=== PATIENT | female | born 1970 | race Caucasian/White ===

== ENCOUNTER 2019-05-28 14:36 | Outpatient (CLI) | payer MEDICAID, SELFPAY ==
--- NOTE | 2019-05-28 14:55 | MM_ITS ---
WS: [id number] BILATERAL DIGITAL SCREENING MAMMOGRAPHY WITH CAD CLINICAL INFORMATION: SCREENING HISTORY: Screening mammogram. No current complaints. COMPARISON: TECHNIQUE: Bilateral CC and MLO views. FINDINGS: The breasts are composed of heterogeneous fibroglandular density tissue, which can limit the detectio n of small underlying mass lesions. Stable 6 mm right intramammary lymph node. No suspicious mass, as ymmetry, calcifications, or architectural distortion. No evidence of malignancy. MM/[place] [id number] IMPRESSION: BI-RADS: 2-Benign FOLLOW UP: 1 Year Follow-up Recommend return to annual screening mammography.
== END 2019-05-28 14:37 | disposition home or self-care (01) ==
PROVIDERS: Family Provider Internal Medicine; PCP Internal Medicine; Visit Provider Internal Medicine
DX: Z12.31 Encounter for screening mammogram for malignant neoplasm of breast (principal)
CPT/HCPCS: 77067

== ENCOUNTER 2019-09-16 10:27 | Outpatient (CLI) | payer MEDICAID, SELFPAY ==
[2019-09-16 10:44] LABS: Basophils % 0.1 %; Eosinophils # 0.1 10^3/uL (0.0-0.8); Eosinophils % 1.2 %; Hematocrit 38.1 % (37.0-47.0); Hemoglobin 12.3 g/dL (11.5-15.3); Lymphocytes # 0.6 10^3/uL (0.8-4.8); Lymphocytes % 5.7 %; Mean Corpuscular HGB Conc 32.3 g/dL (30.0-36.0); Mean Corpuscular Hemoglobin 31.5 pg (28.0-34.0); Mean Corpuscular Volume 97.4 fL (81-99); Mean Platelet Volume 10.1 fL (7.4-10.4); Monocytes % 9.1 %; Neutrophils # 8.9 10^3/uL (1.8-7.7); Neutrophils % 83.6 %; Nucleated Red Blood Cells % 0 %; Platelet Count 300 10^3/cmm (130-400); Red Blood Count 3.91 10^6/uL (4.1-5.3); Red Cell Distribution Width 12.8 % (12.1-15.1); White Blood Count 10.7 10^3/uL (4.0-10.0)
[2019-09-16 14:43] LABS: Alanine Aminotransferase 12 U/L (0-33); Alkaline Phosphatase 99 IU/L (35-105); Anion Gap 16.8 (5-19); Aspartate Amino Transferase 18 U/L (0-32); Blood Urea Nitrogen 14 mg/dL (6-20); Carbon Dioxide 21 mmol/L (22-29); Chloride 110 mmol/L (98-107); Globulin 3.1 g/dL (1.3-4.6); Glomerular Filtration Rate 106.3 mL/min (90-130); Glucose 122 mg/dL (65-115); Osmolality Calculated 296 mOsm/kg (285-295); Potassium 3.8 mmol/L (3.5-5.1); Sodium 144 mmol/L (136-145); Total Bilirubin 0.2 mg/dL (0.15-1.2); Total Protein 7.1 g/dL (6.6-8.7)
== END 2019-09-16 10:28 | disposition home or self-care (01) ==
PROVIDERS: PCP Internal Medicine; Visit Provider Internal Medicine
DX: N39.0 Urinary tract infection, site not specified (principal)
CPT/HCPCS: 80053; 85025

== ENCOUNTER 2019-10-23 | Outpatient (CLI) | payer MEDICAID, SELFPAY | END 2019-10-23 23:00 | disposition home or self-care (01) | LOC: RAD 01-07 10:32 | PROVIDERS: PCP Internal Medicine; Visit Provider Urology | DX: G35 Multiple sclerosis (principal); G40.209 Localization-related (focal) (partial) symptomatic epilepsy and epileptic syndromes with complex partial seizures, not intractable, without status epilepticus; F17.210 Nicotine dependence, cigarettes, uncomplicated | CPT/HCPCS: 99213 ==

== ENCOUNTER 2019-12-19 12:56 | Outpatient (CLI) | payer MEDICAID, SELFPAY ==
[2019-12-19 13:08] LABS: Basophils % 0.2 %; Eosinophils # 0.1 10^3/uL (0.0-0.8); Eosinophils % 0.4 %; Hematocrit 44.1 % (37.0-47.0); Hemoglobin 13.9 g/dL (11.5-15.3); Lymphocytes # 1.4 10^3/uL (0.8-4.8); Lymphocytes % 9.4 %; Mean Corpuscular HGB Conc 31.5 g/dL (30.0-36.0); Mean Corpuscular Hemoglobin 30.8 pg (28.0-34.0); Mean Corpuscular Volume 97.8 fL (81-99); Mean Platelet Volume 9.8 fL (7.4-10.4); Monocytes % 6.5 %; Neutrophils # 12.33 10^3/uL (1.8-7.7); Nucleated Red Blood Cells % 0 %; Platelet Count 369 10^3/cmm (130-400); Red Blood Count 4.51 10^6/uL (4.1-5.3); Red Cell Distribution Width 12.4 % (12.1-15.1); White Blood Count 14.9 10^3/uL (4.0-10.0)
[2019-12-19 14:04] LABS: Alanine Aminotransferase 11 U/L (0-33); Albumin Level 4.3 g/dL (3.5-5.2); Alkaline Phosphatase 113 IU/L (35-105); Aspartate Amino Transferase 19 U/L (0-32); Blood Urea Nitrogen 15 mg/dL (6-20); Calcium 9.8 mg/dL (8.5-10.5); Carbon Dioxide 21 mmol/L (22-29); Chloride 108 mmol/L (98-107); Globulin 3.2 g/dL (1.3-4.6); Glomerular Filtration Rate 131.1 mL/min (90-130); Glucose 113 mg/dL (65-115); Osmolality Calculated 287 mOsm/kg (285-295); Sodium 140 mmol/L (136-145); Total Bilirubin 0.2 mg/dL (0.15-1.2); Total Protein 7.5 g/dL (6.6-8.7)
== END 2019-12-19 12:57 | disposition home or self-care (01) ==
LOC: LAB 12:58
PROVIDERS: PCP Internal Medicine; Visit Provider Internal Medicine
DX: N18.9 Chronic kidney disease, unspecified (principal); R31.9 Hematuria, unspecified
CPT/HCPCS: 80053; 85025

== ENCOUNTER 2020-02-12 09:23 | Outpatient (CLI) | payer MEDICAID, SELFPAY ==
--- NOTE | 2020-02-12 09:30 | CT_ITS ---
WS: [id number] CT ABDOMEN PELVIS TECHNIQUE: Noncontrast CT of the abdomen and pelvis with coronal and sagittal reformatted images. CLINICAL INFORMATION: STAGHORN CALCULUS COMPARISON: CT 8 21,018 DLP: 1407.[address] scans at [facility] use at least one of these dose optimization techniques: automat ed exposure control; mA and/or kV adjustment per patient size (includes targeted exams where dose is matched to clinical indication); or iterative reconstruction. FINDINGS: Noncontrast liver is normal. Normal GE junction. Noncontrast spleen is normal. Small splenules. Meri l noncontrast pancreas. Normal caliber abdominal aorta. Slight atelectasis in the lung bases. Adrenal glands are normal. Stable right staghorn calculus with small calculi extending to the right renal pe lvis unchanged from previous. Mild chronic thickening and dilatation of the right renal pelvis appear s unchanged. No progressed hydronephrosis. Stable left renal calculi the largest measuring 11 mm left lower pole. Tiny calyceal tip calculi. Left ureter is decompressed. Prior ileal conduit. No evidence of obstruction. Postoperative changes surgical anastomosis right lower quadrant. Marked distention of the rectosigmoid with constipation was present on the prior examination but prog ressed today. No abdominal or pelvic lymphadenopathy. Stable sclerotic lesion right proximal femur li medina enchondroma. CT/CT kidney stone [id number] IMPRESSION: 1. Stable appearing right staghorn calculi extending into the right renal pelv is with chronic thickening and right pelvocaliectasis. This is unchanged in remy earance from previous. No evidence evidence of acute obstruction. 2. Left calyceal tip calculi. Largest measures 11 mm. 3. Prior postoperative ileoconduit. No evidence of obstruction. 4. Marked distention of the rectosigmoid with constipation was present previou sly but is progressed today. No other significant changes from previous.
== END 2020-02-12 09:24 | disposition home or self-care (01) ==
LOC: RAD 09:28
PROVIDERS: PCP Internal Medicine; Visit Provider Urology
DX: N20.0 Calculus of kidney (principal)
CPT/HCPCS: 74176

== ENCOUNTER 2020-02-27 13:18 | Outpatient (CLI) | payer MEDICAID, SELFPAY ==
[2020-02-27 14:03] LABS: Alanine Aminotransferase 19 U/L (0-33); Albumin Level 4.5 g/dL (3.5-5.2); Alkaline Phosphatase 133 IU/L (35-105); Anion Gap 19.4 (5-19); Aspartate Amino Transferase 22 U/L (0-32); Blood Urea Nitrogen 12 mg/dL (6-20); Calcium 9.7 mg/dL (8.5-10.5); Carbon Dioxide 21 mmol/L (22-29); Chloride 105 mmol/L (98-107); Globulin 3.4 g/dL (1.3-4.6); Glomerular Filtration Rate 169.7 mL/min (90-130); Glucose 86 mg/dL (65-115); Osmolality Calculated 293 mOsm/kg (285-295); Potassium 3.4 mmol/L (3.5-5.1); Sodium 142 mmol/L (136-145); Total Bilirubin 0.2 mg/dL (0.15-1.2); Total Protein 7.9 g/dL (6.6-8.7)
[2020-03-05 11:17] LABS: Levetiracetam Keppra 50.4 mcg/mL
== END 2020-02-27 13:19 | disposition home or self-care (01) ==
LOC: LAB 13:19
PROVIDERS: PCP Internal Medicine; Visit Provider Internal Medicine
DX: D64.9 Anemia, unspecified (principal)
CPT/HCPCS: 80053; 80177; 85025

== ENCOUNTER 2020-07-08 09:35 | Outpatient (CLI) | payer MEDICAID, SELFPAY ==
--- NOTE | 2020-07-08 09:47 | XRR_ITS ---
PROCEDURE INFORMATION: Exam: XR Abdomen Exam date and time: 07/08/2020 9:48 AM Age: 50 years old Clinical indication: Condition or disease; Kidney or ureter condition; Calculus (stone) in kidney; Prior surgery; Surgery type: Colostomy, hystorectomy TECHNIQUE: Imaging protocol: XR of the abdomen. Views: Frontal supine view of the abdomen. 1 View. COMPARISON: CT kidney stone [id number] 02/12/2020 9:42 AM FINDINGS: Gastrointestinal tract: Copious stool in a pattern of constipation and fecal impaction. Intraperitoneal space: Incomplete visualization of the superior most abdomen. Organs: Bilateral renal calculi, which are partially obscured by bowel gas and stool. Vasculature: Vascular calcification. Bones/joints: Osteopenia and degenerative change. XR/XR KUB [id number] IMPRESSION: 1. Copious stool in a pattern of constipation and fecal impaction. 2. Bilateral renal calculi, which are partially obscured by bowel gas and stool.
== END 2020-07-08 09:36 | disposition home or self-care (01) ==
PROVIDERS: PCP Internal Medicine; Visit Provider Urology
DX: N20.0 Calculus of kidney (principal)
CPT/HCPCS: 74018

== ENCOUNTER 2020-10-17 13:28 | Outpatient (CLI) | payer MEDICAID, SELFPAY ==
[2020-10-17 13:40] LABS: Basophils % 0.2 %; Eosinophils # 0.2 10^3/uL (0.0-0.8); Eosinophils % 1.8 %; Hematocrit 40.4 % (37.0-47.0); Hemoglobin 12.9 g/dL (11.5-15.3); Lymphocytes # 1.9 10^3/uL (0.8-4.8); Lymphocytes % 22.8 %; Mean Corpuscular HGB Conc 31.9 g/dL (30.0-36.0); Mean Corpuscular Volume 97.1 fL (81-99); Mean Platelet Volume 10.3 fL (7.4-10.4); Monocytes # 0.8 10^3/uL (0.2-0.9); Monocytes % 9.2 %; Neutrophils # 5.45 10^3/uL (1.8-7.7); Neutrophils % 65.8 %; Nucleated Red Blood Cells % 0 %; Platelet Count 330 10^3/cmm (130-400); Red Blood Count 4.16 10^6/uL (4.1-5.3); Red Cell Distribution Width 12.7 % (12.1-15.1); White Blood Count 8.3 10^3/uL (4.0-10.0)
[2020-10-17 14:05] LABS: Alanine Aminotransferase 9 U/L (0-33); Albumin Level 4.3 g/dL (3.5-5.2); Alkaline Phosphatase 139 IU/L (35-105); Anion Gap 15.2 (5-19); Aspartate Amino Transferase 15 U/L (0-32); Blood Urea Nitrogen 12 mg/dL (6-20); Carbon Dioxide 20 mmol/L (22-29); Chloride 107 mmol/L (98-107); Glucose 82 mg/dL (65-115); Osmolality Calculated 285 mOsm/kg (285-295); Potassium 4.2 mmol/L (3.5-5.1); Sodium 138 mmol/L (136-145); Total Bilirubin 0.2 mg/dL (0.15-1.2); Total Protein 7.3 g/dL (6.6-8.7)
== END 2020-10-17 13:29 | disposition home or self-care (01) ==
PROVIDERS: PCP Internal Medicine; Visit Provider Internal Medicine
DX: G35 Multiple sclerosis (principal); R56.9 Unspecified convulsions
CPT/HCPCS: 80053; 80177; 85025

== ENCOUNTER → 2020-10-20 11:13 | Outpatient (BNVA) | payer MEDICAID, SELFPAY | PROVIDERS: PCP Internal Medicine; Visit Provider Specialist | DX: G35 Multiple sclerosis (principal); G40.209 Localization-related (focal) (partial) symptomatic epilepsy and epileptic syndromes with complex partial seizures, not intractable, without status epilepticus; F17.210 Nicotine dependence, cigarettes, uncomplicated | CPT/HCPCS: 99214 ==

== ENCOUNTER 2020-11-14 17:32 | Outpatient (CLI) | payer MEDICAID, SELFPAY ==
[2020-11-14 18:31] LABS: Alanine Aminotransferase 13 U/L (0-33); Albumin Level 4.2 g/dL (3.5-5.2); Alkaline Phosphatase 138 IU/L (35-105); Aspartate Amino Transferase 20 U/L (0-32); Blood Urea Nitrogen 10 mg/dL (6-20); Carbon Dioxide 21 mmol/L (22-29); Chloride 103 mmol/L (98-107); Glomerular Filtration Rate 235.5 mL/min (90-130); Glucose 86 mg/dL (65-115); Osmolality Calculated 286 mOsm/kg (285-295); Sodium 139 mmol/L (136-145); Total Bilirubin 0.3 mg/dL (0.15-1.2); Total Protein 8.2 g/dL (6.6-8.7)
[2020-11-14 18:33] LABS: Anion Gap 18.3 (5-19); Potassium 3.3 mmol/L (3.5-5.1)
== END 2020-11-14 17:33 | disposition home or self-care (01) ==
LOC: LAB 17:37
PROVIDERS: PCP Internal Medicine; Visit Provider Internal Medicine
DX: I10 Essential (primary) hypertension (principal)
CPT/HCPCS: 80053

== ENCOUNTER 2021-01-08 10:06 | Outpatient (CLI) | payer MEDICAID, SELFPAY ==
--- NOTE | 2021-01-08 10:15 | XR_ITS ---
WS: [id number] KUB, AP view, 01/08/2021 Clinical Data: STAGHORN RENAL CALCULUS Comparison: KUB, 07/08/2020. Findings: No abnormal intraabdominal masses are seen. There is no dilatated small bowel or evidence of obstruct ion. There are large calcifications overlying both kidneys unchanged. There is colon gas obscuring detail over the kidneys. There is a large fecal impaction. There is degenerative change of both hips. XR/XR KUB [id number] Impression: No change in bilateral renal calculi.
== END 2021-01-08 10:07 | disposition home or self-care (01) ==
LOC: RAD 10:11
PROVIDERS: PCP Internal Medicine; Visit Provider Urology
DX: N20.0 Calculus of kidney (principal)
CPT/HCPCS: 74018

== ENCOUNTER 2021-03-02 05:41 | Inpatient (IN) | payer MEDICAID, SELFPAY ==
[2021-03-02] VITALS (13 sets, daily range): BP systolic 121–157; BP diastolic 66–101; PULSE 88–118; RESP 16–20; TEMP 36.2–37.3; O2SAT 92–99; BMI 27.3
--- NOTE | 2021-03-02 06:01 | XRR_ITS ---
PROCEDURE INFORMATION: Exam: XR Chest Exam date and time: 03/02/2021 6:01 AM Age: 50 years old Clinical indication: Patient HX: PT AMS unable to give history; Additional info: Dyspnea/cough TECHNIQUE: Imaging protocol: XR of the chest. Views: 1 view. Total images: 1 COMPARISON: CR Chest 1 view [id number] 12/27/2017 7:47 AM FINDINGS: Lungs: Unremarkable. No consolidation. Pleural spaces: Unremarkable. No pleural effusion. No pneumothorax. Heart/Mediastinum: Unremarkable. No cardiomegaly. Bones/joints: Unremarkable. XR/XR chest 1V portable [id number] IMPRESSION: No acute findings. Radiation Dose CTDIVOL = (mGy): DLP = (mGy-cm)
--- NOTE | 2021-03-02 06:01 | CTR_ITS ---
PROCEDURE INFORMATION: Exam: CT Head Without Contrast Exam date and time: 03/02/2021 6:01 AM Age: 50 years old Clinical indication: Altered mental status/memory loss; Additional info: AMS TECHNIQUE: Imaging protocol: Computed tomography of the head without contrast. Total images: 223 Radiation optimization: All CT scans at this facility use at least one of these dose optimization techniques: automated exposure control; mA and/or kV adjustment per patient size (includes targeted exams where dose is matched to clinical indication); or iterative reconstruction. COMPARISON: CT head wo con* [id number] 12/27/2017 8:38 AM RADIATION DOSE METRICS: Total DLP (mGy-cm): 1233.99 FINDINGS: Brain: Global brain atrophy and chronic white matter ischemic changes are present. Cerebral ventricles: Ventricles are appropriate in size for degree of atrophy. Paranasal sinuses: Visualized sinuses are unremarkable. No fluid levels. Mastoid air cells: Visualized mastoid air cells are well aerated. Bones/joints: Unremarkable. No acute fracture. Soft tissues: Unremarkable. CT/CT head wo con* [id number] IMPRESSION: No acute intracranial abnormality. Radiation Dose CTDIVOL = (mGy): DLP = 1233.99 (mGy-cm)
--- NOTE | 2021-03-02 06:01 | ECG_ITS ---
[facility] Test Date: 2021-03-02 Pat Name: Teresa Moraes Department: Room: Gender: Female [employer]: : 1970 Requested By: Kodi Blair Order Number: [id number] Ishan MD: Yousuf Lorenzo M.D. Measurements Intervals [place] Rate: 91 P: 67 AR: 184 QRS: -48 QRSD: 110 T: 122 QT: 305 QTc: 377 Interpretive Statements SINUS RHYTHM INCOMPLETE RIGHT BUNDLE BRANCH BLOCK [90+ ms QRS DURATION, TERMINAL R IN V1/V2, 40+ ms S IN I/aVL/V4/V5/V6] LEFT ANTERIOR FASCICULAR BLOCK [QRS AXIS <= -45, QR IN I, RS IN II] NONSPECIFIC ST & T-WAVE ABNORMALITY No previous ECG available for comparison Electronically Signed On 03-02-2021 23:42:37 CDT by Yousuf Lorenzo M.D. [id number]
--- NOTE | 2021-03-02 06:01 | CTR_ITS ---
PROCEDURE INFORMATION: Exam: CT Abdomen And Pelvis With Contrast Exam date and time: 03/02/2021 6:01 AM Age: 50 years old Clinical indication: Abdominal pain; Prior surgery; Additional info: Abd pain TECHNIQUE: Imaging protocol: Computed tomography of the abdomen and pelvis with contrast. Total images: 224 Radiation optimization: All CT scans at this facility use at least one of these dose optimization techniques: automated exposure control; mA and/or kV adjustment per patient size (includes targeted exams where dose is matched to clinical indication); or iterative reconstruction. Contrast material: OMNI 300; Contrast volume: 95 ml; Contrast route: INTRAVENOUS (IV); COMPARISON: CT abdomen pelvis w con* [id number] 12/27/2017 12:04 PM RADIATION DOSE METRICS: Total DLP (mGy-cm): 1772.85 FINDINGS: Lungs: Streaky left basilar opacity favors atelectasis. Liver: Normal. No mass. Gallbladder and bile ducts: Cholelithiasis is present with contracted gallbladder without cholecystitis. No gallbladder wall thickening or pericholecystic fluid collection. Pancreas: Normal. No ductal dilation. Spleen: Normal. No splenomegaly. Adrenal glands: Normal. No mass. Kidneys and ureters: 14 mm Largest kidney stone which is nonobstructing and found in kidneys that have multiple non-obstructing kidney stones. Stomach and bowel: Prior bowel resection and anastomosis is evident. The rectosigmoid colon is distended with stool and features mild inflammation. Appendix: No evidence of appendicitis. Intraperitoneal space: Unremarkable. No free air. No significant fluid collection. Vasculature: Unremarkable. No abdominal aortic aneurysm. Lymph nodes: Unremarkable. No enlarged lymph nodes. Urinary bladder: Status post cystectomy with ileal conduit. Mild hydronephrosis bilaterally right greater than left. Reproductive: Prior hysterectomy noted. Prior hysterectomy noted. Bones/joints: Unremarkable. No acute fracture. Soft tissues: Unremarkable. CT/CT abdomen pelvis w con* [id number] IMPRESSION: 1. The rectosigmoid colon is distended with stool and features mild inflammation. Findings are concerning for developing rectal wall pressure ulcer (stercoral colitis). Recommend gentle disimpaction. 2. Streaky left basilar opacity favors atelectasis. 3. Cholelithiasis is present with contracted gallbladder without cholecystitis. No gallbladder wall thickening or pericholecystic fluid collection. 4. Status post cystectomy with ileal conduit. Mild hydronephrosis bilaterally right greater than left. 5. 14 mm Largest kidney stone which is nonobstructing and found in kidneys that have multiple non-obstructing kidney stones. Radiation Dose CTDIVOL = (mGy): DLP = 1772.85 (mGy-cm)
--- NOTE | 2021-03-02 06:05 | W.ED.AMS ---
HPI - Altered Mental Status General: Chief Complaint: Altered Mental Status Stated Complaint: ams Time Seen by Provider: 03/02/21 05:52 History of Present Illness: HPI narrative: 50-year-old female presents via EMS [facility]. Patient has significant altered mental status she is arousable and will respond to questions but only responds with asking who you are or what are you doing. She does use some foul language at times. Pupils are dilated. Patient has a history of previous similar presentation 3 years ago. halfway reported altered mental status with diarrhea does not give a last known well time. Patient has Hernandez and what appears to be urostomyy. She has multiple scars on her abdomen.According to old notes from neurology she also has a history of seizures. Onset of MS around early . There is a neurology note from October of this year, reading the HPI it sounds as if the patient was awake and alert and interactive. She has been wheelchair-bound since 2004. MD complaint: altered mental status and confusion Onset (ago): hour(s) Time: 23:00 Timing confirmed by: caregiver Severity: severe Context: history of similar presentation and other (History of MS) Review of Systems General: Reports: ROS unobtainable due to mental status PFSH ED PFSH: Medical History Anemia Anxiety Cerebellar tremor Depression Depression, endogenous GERD (gastroesophageal reflux disease) Hypertension Multiple sclerosis Onychodystrophy Plantar callus Seizure Staghorn renal calculus Struvite kidney stones Surgical History H/O cervical biopsy H/O: hysterectomy History of biopsy of bladder History of urostomy Family History Family/Other Cancer Hyperlipidemia Hypertension Denies family history of Diabetes CAD (coronary artery disease) Clotting disorder Dementia Psychiatric illness Chronic kidney disease (CKD) Suicide Anesthesia complication Bleeding disorder Family history of premature coronary artery disease Lung disease Stroke Social History Smoking and tobacco status: current every day smoker cigarettes Packs smoked per day: 0.5 Alcohol intake: never Marital status: Current occupational status: retired and disabled History of recent travel: No Physical Exam Const: COMMON NORMALS: no acute distress GENERAL APPEARANCE: cooperative and comfortable HENMT: COMMON NORMALS: normocephalic and atraumatic HEAD & SCALP: normocephalic and atraumatic Eye: COMMON NORMALS: EOMs intact bilaterally, conjunctivae normal and no scleral icterus CONJUNCTIVA: Yes conjunctivae normal PUPIL: Yes Dilated pupils bilaterally Neck/C-Spine: COMMON NORMALS: full ROM, no lymphadenopathy, supple and no JVD Lymph: LYMPHATIC: no lymphadenopathy noted and no lymphedema noted Resp: COMMON NORMALS: normal respiratory effort, No retractions, No use of accessory muscles and clear to auscultation bilaterally AUSCULTATION: clear to auscultation bilaterally Cardio: COMMON NORMALS: no JVD, regular rate, regular rhythm and No murmurs present (Cardio) RATE: regular rate RHYTHM: regular rhythm GI: COMMON NORMALS: Soft to palpation and No hepatosplenomegaly present AUSCULTATION: Yes normoactive bowel sounds PALPATION: Yes Soft to palpation, No Tenderness to palpation present (GI), No Guarding due to palpation present (GI) and Yes No hepatosplenomegaly present Extremity: COMMON NORMALS: normal to inspection, capillary refill normal, no clubbing, cyanosis or edema, no calf tenderness and no pedal edema Course Vital Signs: Vital signs: Vital Signs Temperature 98.1 F 03/03/21 04:00 Pulse Rate 74 03/03/21 04:00 Respiratory Rate 16 03/03/21 04:00 Blood Pressure 120/81 03/03/21 04:00 Pulse Oximetry 94 03/03/21 04:00 MDM - Altered Mental Status MDM Narrative: Medical decision making narrative: Significant altered mental status. Difficulty get any history from the patient called out to the jail she last received any medications at 10 around 8 PM she had been alert and oriented up until sometime through the night. Discussed Dr. Godwin will admit. Orders are written. Lab Data: Labs: Lab Results 03/02/21 03/02/21 03/02/21 06:44 06:50 06:50 WBC 18.3 10^3/uL H 10 ^3/uL (4.0-10.0) RBC 4.40 10^6/uL 10^6 /uL (4.1-5.3) Hgb 14.0 g/dL g/dL (11.5-15.3) Hct 41.5 % % (37.0-47.0) MCV 94.3 fl fl (81-99) MCH 31.8 pg pg (28.0-34.0) MCHC 33.7 g/dL g/dL (30.0-36.0) RDW 12.4 % % (12.1-15.1) Plt Count 340 10^3/cmm 10^3 /cmm (130-400) MPV 10.0 fL fL (7.4-10.4) Neut % (Auto) 85.2 % % Lymph % (Auto) 7.1 % % [place] % (Auto) 6.1 % % Eos % (Auto) 0.0 % % Baso % (Auto) 0.2 % % Neut # (Auto) 15.57 10^3/uL H 1 0^3/uL (1.8-7.7) Lymph # (Auto) 1.3 10^3/uL 10^3/ uL (0.8-4.8) [place] # (Auto) 1.1 10^3/uL H 10^ 3/uL (0.2-0.9) Eos # (Auto) 0.0 10^3/uL 10^3/ uL (0.0-0.8) Baso # (Auto) 0.0 10^3/uL 10^3/ uL (0.0-0.1) Nucleated RBC % (a uto) 0 % % Nucleated RBCs # 0.0 /100WBC /100W BC Specimen Type Arterial Sample Site Radial, right ABG pH 7.42 (7.35-7.45) ABG pCO2 42.7 mmHg mmHg (35-45) ABG pO2 90.9 mmHg mmHg (80.0-100.0) ABG HCO3 27.6 mmol/L H mmo l/L (22-26) ABG O2 Saturation 95.3 ABG Base Excess 2.6 mmol/L H mmol /L (-2.0-2.0) Andrews Test Pos A-a O2 Gradient 53.2 mmHg H mmHg (5-10) Hematocrit 45.6 % % (37-47) Hgb O2 Saturation 92.3 % L % (95-100) Carboxyhemoglobin 2.1 %THgb %THgb (0.4-20.1) Methemoglobin 1.0 % % (0.4-1.5) Total Hemoglobin 14.9 g/dL g/dL (12-16) Sodium 140.0 mmol/L mmol /L (131-143) Potassium 2.2 mmol/L L mmol /L (3.5-5.0) Glucose 136.0 mg/dL H mg/ dL (70-115) Ionized Calcium 1.1 mmol/L mmol/L (1.1-1.4) O2 Delivery Device Nc O2 Liters/Min 2.0 % % FiO2 28.0 % % Rubber Flap Cutter ID Tamma Chloride Carbon Dioxide Anion Gap BUN Creatinine GFR Calculation Calculated Osmolal ity Lactic Acid 1.5 mmol/L mmol/L (0.5-2.2) Calcium Magnesium Total Bilirubin AST ALT Alkaline Phosphata se Ammonia Creatine Kinase Troponin T Baselin e Troponin T 120 Min [place] Delta Troponin T Troponin T Hi Sens 6Hr Troponin T Hi Sens 6Hr Delta Total Protein Albumin Globulin Lipase TSH Urine Color Urine Appearance Urine pH Ur Specific Gravit y Urine Protein Urine Glucose (UA) Urine Ketones Urine Blood Urine Nitrate Urine Bilirubin Prot Sulfosalicyli c Acd Urine Urobilinogen Ur Leukocyte Orin ase Urine RBC Urine WBC Ur Squamous Epith Cells Amorphous Sediment Urine Bacteria Serum Ketones 03/02/21 03/02/21 03/02/21 06:50 06:50 06:50 WBC RBC Hgb Hct MCV MCH MCHC RDW Plt Count MPV Neut % (Auto) Lymph % (Auto) [place] % (Auto) Eos % (Auto) Baso % (Auto) Neut # (Auto) Lymph # (Auto) [place] # (Auto) Eos # (Auto) Baso # (Auto) Nucleated RBC % (a uto) Nucleated RBCs # Specimen Type Sample Site ABG pH ABG pCO2 ABG pO2 ABG HCO3 ABG O2 Saturation ABG Base Excess Andrews Test A-a O2 Gradient Hematocrit Hgb O2 Saturation Carboxyhemoglobin Methemoglobin Total Hemoglobin Sodium 135 mmol/L L mmol /L (136-145) Potassium 2.8 mmol/L L* mmo l/L (3.5-5.1) Glucose 133 mg/dL H mg/dL (65-115) Ionized Calcium O2 Delivery Device O2 Liters/Min FiO2 Rubber Flap Cutter ID Chloride 92 mmol/L L mmol/ L (98-107) Carbon Dioxide 26 mmol/L mmol/L (22-29) Anion Gap 19.8 H (5-19) BUN 33 mg/dL H mg/dL (6-20) Creatinine 0.8 mg/dL mg/dL (0.5-0.9) GFR Calculation 75.9 mL/min L mL/ min (90-130) Calculated Osmolal ity 289 mOsm/kg mOsm/ kg (285-295) Lactic Acid Calcium 9.1 mg/dL mg/dL (8.5-10.5) Magnesium Total Bilirubin 0.3 mg/dL mg/dL (0.15-1.2) AST 14 U/L U/L (0-32) ALT 10 U/L U/L (0-33) Alkaline Phosphata se 111 IU/L H IU/L (35-105) Ammonia Creatine Kinase 47 U/L U/L (26-192) Troponin T Baselin e 25 ng/L H ng/L (0-10) Troponin T 120 Min [place] Delta Troponin T Troponin T Hi Sens 6Hr Troponin T Hi Sens 6Hr Delta Total Protein 7.9 g/dL g/dL (6.6-8.7) Albumin 4.1 g/dL g/dL (3.5-5.2) Globulin 3.8 g/dL g/dL (1.3-4.6) Lipase 19 U/L U/L (13-60) TSH Urine Color Urine Appearance Urine pH Ur Specific Gravit y Urine Protein Urine Glucose (UA) Urine Ketones Urine Blood Urine Nitrate Urine Bilirubin Prot Sulfosalicyli c Acd Urine Urobilinogen Ur Leukocyte Orin ase Urine RBC Urine WBC Ur Squamous Epith Cells Amorphous Sediment Urine Bacteria Serum Ketones Negative (Negative) 03/02/21 03/02/21 03/02/21 06:50 08:31 09:14 WBC RBC Hgb Hct MCV MCH MCHC RDW Plt Count MPV Neut % (Auto) Lymph % (Auto) [place] % (Auto) Eos % (Auto) Baso % (Auto) Neut # (Auto) Lymph # (Auto) [place] # (Auto) Eos # (Auto) Baso # (Auto) Nucleated RBC % (a uto) Nucleated RBCs # Specimen Type Sample Site ABG pH ABG pCO2 ABG pO2 ABG HCO3 ABG O2 Saturation ABG Base Excess Andrews Test A-a O2 Gradient Hematocrit Hgb O2 Saturation Carboxyhemoglobin Methemoglobin Total Hemoglobin Sodium Potassium Glucose Ionized Calcium O2 Delivery Device O2 Liters/Min FiO2 Rubber Flap Cutter ID Chloride Carbon Dioxide Anion Gap BUN Creatinine GFR Calculation Calculated Osmolal ity Lactic Acid Calcium Magnesium Total Bilirubin AST ALT Alkaline Phosphata se Ammonia 48 umol/L umol/L (11-51) Creatine Kinase Troponin T Baselin e Troponin T 120 Min [place] 20.29 ng/L H ng/L (0-10) Delta Troponin T -4.71 ABS# L ABS# (0-10) Troponin T Hi Sens 6Hr Troponin T Hi Sens 6Hr Delta Total Protein Albumin Globulin Lipase TSH Urine Color Yellow (Yellow) Urine Appearance Cloudy (CLEAR) Urine pH 8 H (5-7) Ur Specific Gravit y 1.010 (1.005-1.030) Urine Protein Neg (Negative) Urine Glucose (UA) Norm (Normal) Urine Ketones Negative (Negative) Urine Blood Neg (Negative) Urine Nitrate Positive H (Negative) Urine Bilirubin Neg (Negative) Prot Sulfosalicyli c Acd Positive (Negative) Urine Urobilinogen Norm mg/dL mg/dL (Negative) Ur Leukocyte Orin ase 2+ H (Negative) Urine RBC Rare /hpf /hpf (0-2) Urine WBC 5-10 /hpf H /hpf (0-5) Ur Squamous Epith Cells 0-4 /hpf H /hpf (0-5) Amorphous Sediment 2+ /hpf /hpf Urine Bacteria 2+ /hpf H /hpf (NONE) Serum Ketones 03/02/21 03/02/21 09:14 13:12 WBC RBC Hgb Hct MCV MCH MCHC RDW Plt Count MPV Neut % (Auto) Lymph % (Auto) [place] % (Auto) Eos % (Auto) Baso % (Auto) Neut # (Auto) Lymph # (Auto) [place] # (Auto) Eos # (Auto) Baso # (Auto) Nucleated RBC % (a uto) Nucleated RBCs # Specimen Type Sample Site ABG pH ABG pCO2 ABG pO2 ABG HCO3 ABG O2 Saturation ABG Base Excess Andrews Test A-a O2 Gradient Hematocrit Hgb O2 Saturation Carboxyhemoglobin Methemoglobin Total Hemoglobin Sodium Potassium Glucose Ionized Calcium O2 Delivery Device O2 Liters/Min FiO2 Rubber Flap Cutter ID Chloride Carbon Dioxide Anion Gap BUN Creatinine GFR Calculation Calculated Osmolal ity Lactic Acid Calcium Magnesium 2.3 mg/dL mg/dL (1.7-2.3) Total Bilirubin AST ALT Alkaline Phosphata se Ammonia Creatine Kinase Troponin T Baselin e Troponin T 120 Min [place] Delta Troponin T Troponin T Hi Sens 6Hr 20.12 ng/L H ng/L (0-10) Troponin T Hi Sens 6Hr Delta -4.88 ng/L L ng/L (0-12) Total Protein Albumin Globulin Lipase TSH 0.76 uIU/mL uIU/m L (0.27-4.20) Urine Color Urine Appearance Urine pH Ur Specific Gravit y Urine Protein Urine Glucose (UA) Urine Ketones Urine Blood Urine Nitrate Urine Bilirubin Prot Sulfosalicyli c Acd Urine Urobilinogen Ur Leukocyte Orin ase Urine RBC Urine WBC Ur Squamous Epith Cells Amorphous Sediment Urine Bacteria Serum Ketones Discharge Plan Discharge Patient Disposition: Admitted As Inpatient Admit Provider: Hraoon Tellez Clinical Impression: Altered mental status, 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
[2021-03-02 06:52] LABS: Blood Gas Allen Test Pos; Blood Gas Sample Site Radial, right; Blood Gas Sample Type Arterial; Oxygen Device NC
[2021-03-02 07:02] LABS: Basophils % 0.2 %; Hematocrit 41.5 % (37.0-47.0); Lymphocytes # 1.3 10^3/uL (0.8-4.8); Lymphocytes % 7.1 %; Mean Corpuscular HGB Conc 33.7 g/dL (30.0-36.0); Mean Corpuscular Hemoglobin 31.8 pg (28.0-34.0); Mean Corpuscular Volume 94.3 fl (81-99); Monocytes # 1.1 10^3/uL (0.2-0.9); Monocytes % 6.1 %; Neutrophils # 15.57 10^3/uL (1.8-7.7); Neutrophils % 85.2 %; Nucleated Red Blood Cells % 0 %; Platelet Count 340 10^3/cmm (130-400); Red Cell Distribution Width 12.4 % (12.1-15.1); White Blood Count 18.3 10^3/uL (4.0-10.0)
[2021-03-02 07:23] LABS: Lactic Sepsis W/Reflex 1.5 mmol/L (0.5-2.2)
[2021-03-02 07:24] LABS: Alanine Aminotransferase 10 U/L (0-33); Albumin Level 4.1 g/dL (3.5-5.2); Alkaline Phosphatase 111 IU/L (35-105); Blood Urea Nitrogen 33 mg/dL (6-20); Calcium 9.1 mg/dL (8.5-10.5); Carbon Dioxide 26 mmol/L (22-29); Chloride 92 mmol/L (98-107); Creatine Phosphokinase 47 U/L (26-192); Globulin 3.8 g/dL (1.3-4.6); Glomerular Filtration Rate 75.9 mL/min (90-130); Glucose 133 mg/dL (65-115); Lipase 19 U/L (13-60); Osmolality Calculated 289 mOsm/kg (285-295); Sodium 135 mmol/L (136-145); Total Bilirubin 0.3 mg/dL (0.15-1.2); Total Protein 7.9 g/dL (6.6-8.7)
[2021-03-02 07:25] LABS: Troponin(5th) Baseline 25 ng/L (0-10)
[2021-03-02 07:29] LABS: Ketone (Acetest) Serum Negative (Negative)
[2021-03-02 07:30] LABS: Ammonia 48 umol/L (11-51)
[2021-03-02 07:31] LABS: Aspartate Amino Transferase 14 U/L (0-32)
[2021-03-02 07:34] LABS: Anion Gap 19.8 (5-19); Potassium 2.8 mmol/L (3.5-5.1)
--- NOTE | 2021-03-02 07:51 | PC.NURSE ---
Assumed care of pt at this time.
[2021-03-02] MEDS: ondansetron 2 mg/ML SDV 2 mL 4 MG IVP ×2 (08:01→14:59)
[2021-03-02] MEDS: lidocaine 1% 5 ML in potassium chloride premix 100 ML 25 ML IV ×2 (08:01→12:12)
[2021-03-02] MEDS: sodium chloride 0.9% 1,000 ML 999 ML IV (08:02)
[2021-03-02 08:47] LABS: Add Urine Microscopic? YES; Bacteria Urine 2+ /hpf; Bilirubin Urine Neg (Negative); Blood Urine Neg (Negative); Glucose Urine UA Norm (Normal); Ketones Urine Negative (Negative); Leukocyte Esterase Urine 2+ (Negative); Nitrate Urine Positive (Negative); Protein Urine Neg (Negative); RBC Urine RARE /hpf (0-2); Squamous Epithelial Cell Urine 0-4 /hpf (0-5); Sulfosalicylic Acid Urine Positive (Negative); Urine Appearance Cloudy (CLEAR); Urine Color Yellow (Yellow); Urobilinogen Urine Norm (Negative); pH Urine 8 (5-7)
[2021-03-02 08:48] LABS: Add Urine Culture? Yes; Amorphous Sediment Urine 2+ /hpf
[2021-03-02] MEDS: iohexol 300 mg/mL 100 mL Btl IV (09:16)
[2021-03-02] MEDS: piperacillin-tazobactam 3.375 GM in sodium chloride 0.9% (plus) 50 ML IV ×2 (09:24→17:04)
[2021-03-02 09:55] LABS: Troponin 5 2HR 20.29 ng/L (0-10)
[2021-03-02 09:57] LABS: Troponin 5 2HR Delta -4.71 ABS# (0-10)
--- NOTE | 2021-03-02 10:02 | PC.PHAR ---
PT IS FROM [facility]-MARGIE NURSE FROM [facility] FOR THE [facility]-MINDED STATES THE PT HAD NO MEDICATIONS TODAY
--- NOTE | 2021-03-02 11:55 | PM.HP ---
Providers/Chief Complaint Primary Care Provider: Tony Keys MD Chief Complaint: ams History of Present Illness Teresa Moraes is a 50 year old female who was sent from [facility] with concerns of confusion. Patient cannot give a history, only reporting mild when I ask a question. From my understanding since last week she has been vomiting intermittently, the nurse reports it appears to be bile. She was alert and oriented x4 until this morning. Last bowel movement 3 days ago, and she has prone to constipation. No history of fever, cough, Covid. Not eating or drinking as well lately secondary to the vomiting. Nursing facility alerts me that she has MS, cannot ambulate but is able to move her arms to some degree. No seizure activity has been noted. Review of Systems General: Reports: ROS unobtainable due to mental status (Patient will only respond no to all my questions.) Medications/Allergies Home Medications Medication Instructions Recorded Confirmed Last Taken Type aluminum-mag hydroxide-simethicone 30 ml PO Q4H PRN ml 08/21/19 03/02/21 Unknown History 200 mg-200 mg-20 mg/5 mL oral susp baclofen 20 mg tablet See Rx Instructions .ROUTE .COMPLEX 08/21/19 03/02/21 Unknown History diazepam 5 mg tablet 5 mg PO BEDTIME@20 tab 08/21/19 03/02/21 Unknown History fluticasone 500 mcg-salmeterol 50 1 inh INHALATION BID@,08/21/19 03/02/21 Unknown History mcg/dose blistr powdr for inhalation furosemide 40 mg tablet See Rx Instructions .ROUTE .COMPLEX 08/21/19 03/02/21 Unknown History gabapentin 300 mg capsule 300 mg PO TID@08,16,08/21/19 03/02/21 Unknown History melatonin 5 mg tablet 5 mg PO BEDTIME tab 08/21/19 03/02/21 Unknown History polyethylene glycol 3350 17 17 gm PO DAILY@08 08/21/19 03/02/21 Unknown History gram/dose oral powder potassium chloride 20 mEq 20 meq PO BID 08/21/19 03/02/21 Unknown History tablet,extended release simethicone 80 mg chewable tablet 80 mg PO QID PRN tab 08/21/19 03/02/21 Unknown History venlafaxine 75 mg capsule,extended 75 mg PO DAILY@08 08/21/19 03/02/21 Unknown History release 24 hr interferon beta-1b 0.3 mg 0.25 mg SUBCUT .EVERY 48 HOURS 01/08/20 03/02/21 Unknown History subcutaneous kit methenamine hippurate 1 gram tablet 1 gm PO QID 01/08/20 03/02/21 Unknown History omeprazole 20 mg capsule,delayed 20 mg PO DAILY@06 01/08/20 03/02/21 Unknown History release ondansetron HCl 4 mg tablet 4 mg PO Q4H PRN 07/08/20 03/02/21 Unknown History sennosides 8.6 mg tablet 8.6 mg PO BID@,07/08/20 03/02/21 Unknown History ketoconazole 2 % shampoo 1 applic TOPICAL .2 x weekly #120 02/17/21 03/02/21 Unknown Rx ml ketoconazole 2 % topical cream 1 applic TOPICAL DAILY #30 g 02/17/21 03/02/21 Unknown Rx ProAir HFA 2 puff INHALATION QID PRN 03/02/21 03/02/21 Unknown History dextromethorphan-guaifenesin 5 ml PO Q4H PRN 03/02/21 03/02/21 Unknown History [Guaifenesin DM] hydrocodone-acetaminophen 1 - 2 tab PO Q6H PRN 03/02/21 03/02/21 Unknown History lacosamide [Vimpat] 200 mg PO BID@,03/02/21 03/02/21 Unknown History levetiracetam 1,000 mg PO BID@,03/02/21 03/02/21 Unknown History loratadine 10 mg PO DAILY@03/02/21 03/02/21 Unknown History magnesium hydroxide [Milk of 30 ml PO DAILY PRN 03/02/21 03/02/21 Unknown History Magnesia] metolazone [Zaroxolyn] 5 mg PO DAILY@03/02/21 03/02/21 Unknown History sodium chloride [Saline Nasal] 1 - 2 spray INTRANASAL .EVERY 2 03/02/21 03/02/21 Unknown History HOURS PRN sodium phosphates [Fleet Enema] 118 ml NC DAILY PRN 03/02/21 03/02/21 Unknown History Allergies Allergy/AdvReac Type Severity Reaction Status Date / Time latex Allergy ALGY-Rash Verified 02/17/21 13:30 PFSH Acute PFSH: Medical History (Updated 03/02/21 @ 12:10 by Haroon Tellez MD) Anemia Anxiety Cerebellar tremor Depression Depression, endogenous GERD (gastroesophageal reflux disease) Hypertension Multiple sclerosis Onychodystrophy Plantar callus Seizure Staghorn renal calculus Struvite kidney stones Surgical History H/O cervical biopsy H/O: hysterectomy History of biopsy of bladder History of urostomy Family History Family/Other Cancer Hyperlipidemia Hypertension Denies family history of Diabetes CAD (coronary artery disease) Clotting disorder Dementia Psychiatric illness Chronic kidney disease (CKD) Suicide Anesthesia complication Bleeding disorder Family history of premature coronary artery disease Lung disease Stroke Social History Smoking and tobacco status: current every day smoker cigarettes Packs smoked per day: 0.5 Alcohol intake: never Marital status: Current occupational status: retired and disabled History of recent travel: No Vitals/I&O/Wt Last Vital Signs Temp 97.3 F L 03/02/21 05:44 Pulse 95 03/02/21 11:04 Resp 17 03/02/21 11:04 BP 130/84 03/02/21 11:04 Pulse Ox 97 03/02/21 11:04 03/01/21 03/02/21 03/02/21 22:59 06:59 14:59 Intake Total 3.333 / 3.333 Balance 3.333 / 3.333 Weight last 48 hrs Weight 81.647 kg Physical Exam Narrative: EXAM NARRATIVE: General exam is a white female who becomes alert when I enter the room. She is able to follow some minor instruction, but answers no to all my questions and appears somewhat confused. HEENT: Pupils equally round. Oropharynx clear. Neck is supple no lymphadenopathy or thyromegaly. No apparent pain. Cardiovascular regular rate and rhythm without murmur, no S3 or S4 Lungs clear no wheezing or crackles Abdomen a few bowel sounds are Heritage. Urostomy noted. Fibrinous material in urostomy. exam is deferred. I will examined back as soon as she transfers to the floor and a gate supervisor is present. Extremities no cyanosis clubbing. Contractures are noted. A small lesion over the skin on the right Achilles tendon is noted without any significant surrounding erythema or drainage Neurologic: Able to reply no, confused, paresis noted in lower extremities which is chronic. Skin no rash Data : 03/02/21 06:50 03/02/21 06:50 Micro: Microbiology 03/02/21 06:35 Blood Culture - Preliminary Blood SPECIMEN COLLECTED 03/02/21 06:50 Blood Culture - Preliminary Blood SPECIMEN COLLECTED Other data: Troponin is 25 with repeat of 20. Ammonia level 48. LFTs normal with exception of alk phos slightly high at 111. Lipase is 19. Urinalysis demonstrates 5-10 white blood cells 0-4 squamous epithelial cells. Serum ketones is negative. CT abdomen and pelvis demonstrates colitis rectosigmoid area likely stercoral colitis, streaky left basilar infiltrate consistent with atelectasis, cholelithiasis with no cholecystitis, cystectomy with mild hydronephrosis right greater than left, 14 mm kidney stone with no evidence of obstruction Chest x-ray no infiltrate CT head negative A&P Assessment and plan (1) Confusion: Consistent with acute encephalopathy. Also history of seizures, no recent obvious seizure Likely related to acute infection Continue close monitoring for improvement, hydration, treatment of underlying infection N.p.o. 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 Supplemented in the ER. Check magnesium level. 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
--- NOTE | 2021-03-02 12:01 | ECG_ITS ---
[facility] Test Date: 2021-03-02 Pat Name: Teresa Moraes Department: Room: Gender: Female Client Support Representative: : 1970 Requested By: Kodi Blair Order Number: [id number] Ishan MD: Yousuf Lorenzo M.D. Measurements Intervals [place] Rate: 92 P: 67 FL: 163 QRS: -38 QRSD: 102 T: 111 QT: 362 QTc: 450 Interpretive Statements SINUS RHYTHM LEFT AXIS DEVIATION [QRS AXIS < -30] INCOMPLETE RIGHT BUNDLE BRANCH BLOCK [90+ ms QRS DURATION, TERMINAL R IN V1/V2, 40+ ms S IN I/aVL/V4/V5/V6] NONSPECIFIC T-WAVE ABNORMALITY Compared to ECG 03/02/2021 07:51:41 Left-axis deviation now present Left anterior fascicular block no longer present T-wave abnormality still present Electronically Signed On 03-02-2021 23:54:52 CDT by Yousuf Lorenzo M.D. [id number]
[2021-03-02 12:15] LABS: ABG PCO2 42.7 mmHg (35-45); ABG PH Result 7.42 (7.35-7.45); Base Excess ABG 2.6 mmol/L (-2.0-2.0); PO2 ABG 90.9 mmHg (80.0-100.0)
[2021-03-02 12:16] LABS: Alveolar-Arterial Oxygen Gradi 53.2 mmHg (5-10); Arterial Blood Gas Hematocrit 45.6 % (37-47); HCO3 ABG 27.6 mmol/L (22-26); Oxygen Saturation ABG 95.3; Potassium Level - ABG 2.2 mmol/L (3.5-5.0)
[2021-03-02 12:17] LABS: Carboxyhemoglobin 2.1 %THgb (0.4-20.1); HGB O2 Sat 92.3 % (95-100); Ionized Calcium Level - ABG 1.1 mmol/L (1.1-1.4); Total Hemoglobin 14.9 g/dL (12-16)
[2021-03-02 12:53] LABS: Magnesium 2.3 mg/dL (1.7-2.3); Thyroid Stimulating Hormone 0.76 uIU/mL (0.27-4.20)
[2021-03-02 13:58] LABS: Troponin 5 6HR 20.12 ng/L (0-10)
[2021-03-02 14:05] LABS: Troponin 5 6HR Delta -4.88 ng/L (0-12)
[2021-03-02] MEDS: baclofen 10 mg Tablet 20 MG PO ×2 (14:59→20:54)
[2021-03-02] MEDS: bisacodyl 10 mg Supp PR (14:59)
[2021-03-02] MEDS: D5-NS 0.45% + KCL 20 mEq 20 MEQ/1,000 ML BAG 100 MEQ IV (15:03)
[2021-03-02] MEDS: gabapentin 300 mg Capsule PO ×2 (17:04→20:54)
[2021-03-02] MEDS: enoxaparin 40 mg/0.4 mL Syringe SUBCUT (17:04)
[2021-03-02] MEDS: polyethylene glycol 3350 Pkt 17 gm PO (17:04)
[2021-03-02] MEDS: levETIRAcetam 500 mg Tablet 1000 MG PO (20:54)
[2021-03-02] MEDS: sennosides 8.6 mg Tablet PO (20:54)
[2021-03-02] MEDS: lacosamide 50 mg Tablet 200 MG PO (20:58)
[2021-03-03] VITALS (9 sets, daily range): BP systolic 120–140; BP diastolic 78–84; PULSE 68–81; RESP 16–20; TEMP 36.4–37.3; O2SAT 93–97
[2021-03-03] MEDS: piperacillin-tazobactam 3.375 GM in sodium chloride 0.9% (plus) 50 ML IV ×3 (00:35→20:31)
[2021-03-03] MEDS: D5-NS 0.45% + KCL 20 mEq 20 MEQ/1,000 ML BAG 100 MEQ IV ×3 (03:36→22:42)
[2021-03-03 06:14] LABS: Basophils % 0.1 %; Hematocrit 39.3 % (37.0-47.0); Hemoglobin 13.1 g/dL (11.5-15.3); Lymphocytes # 1.4 10^3/uL (0.8-4.8); Lymphocytes % 9.5 %; Mean Corpuscular HGB Conc 33.3 g/dL (30.0-36.0); Mean Corpuscular Volume 96.1 fl (81-99); Monocytes # 1.1 10^3/uL (0.2-0.9); Monocytes % 7.5 %; Neutrophils # 12.56 10^3/uL (1.8-7.7); Neutrophils % 82.4 %; Nucleated Red Blood Cells % 0 %; Platelet Count 321 10^3/cmm (130-400); Red Blood Count 4.09 10^6/uL (4.1-5.3); Red Cell Distribution Width 12.8 % (12.1-15.1); White Blood Count 15.2 10^3/uL (4.0-10.0)
[2021-03-03 06:38] LABS: Alanine Aminotransferase 14 U/L (0-33); Alkaline Phosphatase 96 IU/L (35-105); Anion Gap 17.2 (5-19); Aspartate Amino Transferase 20 U/L (0-32); Blood Urea Nitrogen 25 mg/dL (6-20); Calcium 8.8 mg/dL (8.5-10.5); Carbon Dioxide 24 mmol/L (22-29); Chloride 104 mmol/L (98-107); Globulin 4.2 g/dL (1.3-4.6); Glomerular Filtration Rate 105.8 mL/min (90-130); Glucose 121 mg/dL (65-115); Osmolality Calculated 302 mOsm/kg (285-295); Sodium 143 mmol/L (136-145); Total Bilirubin 0.4 mg/dL (0.15-1.2); Total Protein 8.2 g/dL (6.6-8.7)
[2021-03-03 06:42] LABS: Potassium 2.2 mmol/L (3.5-5.1)
[2021-03-03 07:47] LABS: Magnesium 2.4 mg/dL (1.7-2.3); Phosphorus 2.7 mg/dL (2.5-4.5)
--- NOTE | 2021-03-03 09:23 | PC.CHAP ---
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 [] Patient/Family/Request visit [] Outpatient visit [] Follow-up visit [] Physician referral [] Code/Alert [x] Routine visit [] Staff referral [] Actively dying [x] Patient sleeping [] Family support [] [] Out of room [] Palliative care [] [] Receiving care in room [] Pre-surgical visit [] Trauma [] Long length of stay [] ICU visit [] Other: Relational/Emotional Strength [] Patient feels connected with others/family/visitors/staff [] Distress [] Loneliness/isolation [] Abandonment Spirituality of Patient [] Person of Lorri [] Attends Congregational of their Lorri [] Believes in Prayer [] Reads Bible or Restorationism materials [] There are Spiritual issues to be addressed Button Cutter Interventions [] Prayer [] Active listening [] Non-anxious presence [] Spiritual/emotional support [] Crisis/trauma care [] Spiritual counseling [] Bereavement support [] Provided bereavement packet [] Provided Bible/devotional materials [] Provided toy/stuffed animal, coloring book to patient or family member [] Provided Communion [] Anointing/[place] [] Salvation [] Completed spiritual assessment [] Other: Impact on Illness or Injury [] Angry [] Fearful [] Anxious [] Often cries [] Exhaustion [] Unable to work [] Unable to attend mandaeism [] Unable to walk/stand [] Unable to read [] Unable to drive [] Unable to eat/drink [] Unable to sleep [] Unable to be with family [] Patient intubated [] Other: Summary Time spent with patient
[2021-03-03] MEDS: venlafaxine ER (24HR) 75 mg Capsule PO (10:22)
[2021-03-03] MEDS: sennosides 8.6 mg Tablet PO ×2 (10:22→20:31)
[2021-03-03] MEDS: pantoprazole DR 40 mg Tablet PO (10:22)
[2021-03-03] MEDS: levETIRAcetam 500 mg Tablet 1000 MG PO ×2 (10:22→20:30)
[2021-03-03] MEDS: gabapentin 300 mg Capsule PO ×3 (10:23→20:31)
[2021-03-03] MEDS: potassium chloride ER 20 mEq Tablet 40 MEQ PO (10:23)
[2021-03-03] MEDS: polyethylene glycol 3350 Pkt 17 gm PO ×2 (10:24→17:38)
[2021-03-03] MEDS: lacosamide 50 mg Tablet 200 MG PO ×2 (12:47→21:36)
--- NOTE | 2021-03-03 14:46 | PM.PN ---
Subjective Subjective: Interval history: Teresa woke up easily for me. She still was confused. She can say a few words. No issues moving her upper extremities. Nurse relates she has been able to take her medications. Medications: Reviewed: Yes Vitals/I&O/Wt Last Vital Signs Temp 99.2 F 03/03/21 11:26 Pulse 76 03/03/21 11:26 Resp 18 03/03/21 11:26 BP 136/84 03/03/21 11:26 Pulse Ox 97 03/03/21 11:26 03/02/21 03/03/21 03/03/21 22:59 06:59 14:59 Intake Total 205 / 9395.855 5575 / 2409.583 1260 / 1260 Output Total 1025 / 1025 1800 / 2825 400 / 400 Balance -820 / 334.583 -750 / -415.417 860 / 860 Weight last 48 hrs Weight 81.647 kg Weight 81.647 kg Physical Exam Narrative: EXAM NARRATIVE: General exam no distress Neck is supple no lymphadenopathy or thyromegaly. No apparent pain. Cardiovascular regular rate and rhythm without murmur, no S3 or S4 Lungs clear no wheezing or crackles Abdomen a few bowel sounds are Heritage. Urostomy noted. Back without significant decubiti Extremities no cyanosis clubbing. Contractures are noted. A small lesion over the skin on the right Achilles tendon is noted without any significant surrounding erythema or drainage Data : 03/03/21 06:04 03/03/21 06:04 Micro: Microbiology 03/02/21 08:31 Urine Culture - Preliminary Urine,Clean Catch Gram Negative Rods 03/02/21 06:35 Blood Culture - Preliminary Blood NEGATIVE TO DATE 03/02/21 06:50 Blood Culture - Preliminary Blood NEGATIVE TO DATE A&P Assessment and plan (1) Confusion: Consistent with acute encephalopathy. Also history of seizures, no recent obvious seizure Likely related to acute infection Continue close monitoring for improvement, hydration, treatment of underlying infection Appears to be improving. Initiate diet. 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 Supplement again. Recheck potassium this afternoon. Multiple other medical problems as listed in past medical history Full code Lovenox for DVT prophylaxis Attestations Medical Necessity Statement*: Needs continued hospitalization for IV antibiotics secondary to UTI and colitis as well as close monitoring secondary to confusion/encephalopathy. 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
[2021-03-03] MEDS: bisacodyl 10 mg Supp PR (15:26)
[2021-03-03 16:35] LABS: Potassium 2.7 mmol/L (3.5-5.1)
[2021-03-03] MEDS: enoxaparin 40 mg/0.4 mL Syringe SUBCUT (17:38)
[2021-03-03] MEDS: lidocaine 1% 5 ML in potassium chloride premix 100 ML 25 ML IV ×2 (17:54→21:39)
[2021-03-04] VITALS (10 sets, daily range): BP systolic 99–138; BP diastolic 61–74; PULSE 82–100; RESP 16–18; TEMP 36.8–37.2; O2SAT 91–97
[2021-03-04] MEDS: pantoprazole DR 40 mg Tablet PO (05:08)
[2021-03-04] MEDS: piperacillin-tazobactam 3.375 GM in sodium chloride 0.9% (plus) 50 ML IV ×3 (05:09→20:51)
[2021-03-04 05:13] LABS: Basophils % 0.3 %; Eosinophils % 0.2 %; Hematocrit 33.9 % (37.0-47.0); Hemoglobin 11.2 g/dL (11.5-15.3); Lymphocytes # 2.2 10^3/uL (0.8-4.8); Mean Corpuscular Hemoglobin 31.8 pg (28.0-34.0); Mean Corpuscular Volume 96.3 fl (81-99); Mean Platelet Volume 10.1 fL (7.4-10.4); Monocytes # 1.5 10^3/uL (0.2-0.9); Monocytes % 10.3 %; Neutrophils % 73.7 %; Nucleated Red Blood Cells % 0 %; Platelet Count 291 10^3/cmm (130-400); Red Blood Count 3.52 10^6/uL (4.1-5.3); Red Cell Distribution Width 12.7 % (12.1-15.1); White Blood Count 14.8 10^3/uL (4.0-10.0)
[2021-03-04 05:35] LABS: Alanine Aminotransferase 14 U/L (0-33); Albumin Level 3.3 g/dL (3.5-5.2); Alkaline Phosphatase 80 IU/L (35-105); Anion Gap 15.2 (5-19); Aspartate Amino Transferase 21 U/L (0-32); Blood Urea Nitrogen 14 mg/dL (6-20); Calcium 8.7 mg/dL (8.5-10.5); Carbon Dioxide 22 mmol/L (22-29); Chloride 101 mmol/L (98-107); Glomerular Filtration Rate 235.5 mL/min (90-130); Glucose 92 mg/dL (65-115); Osmolality Calculated 280 mOsm/kg (285-295); Potassium 3.2 mmol/L (3.5-5.1); Sodium 135 mmol/L (136-145); Total Bilirubin 0.2 mg/dL (0.15-1.2); Total Protein 7.3 g/dL (6.6-8.7)
[2021-03-04] MEDS: polyethylene glycol 3350 Pkt 17 gm PO ×2 (08:27→17:43)
[2021-03-04] MEDS: lacosamide 50 mg Tablet 200 MG PO ×2 (08:28→21:00)
[2021-03-04] MEDS: venlafaxine ER (24HR) 75 mg Capsule PO (08:28)
[2021-03-04] MEDS: gabapentin 300 mg Capsule PO ×3 (08:28→20:49)
[2021-03-04] MEDS: sennosides 8.6 mg Tablet PO ×2 (08:29→20:49)
[2021-03-04] MEDS: levETIRAcetam 500 mg Tablet 1000 MG PO ×2 (08:29→20:49)
[2021-03-04] MEDS: D5-NS 0.45% + KCL 20 mEq 20 MEQ/1,000 ML BAG 100 MEQ IV (08:43)
[2021-03-04] MEDS: lidocaine 1% 5 ML in potassium chloride premix 100 ML 25 ML IV (08:45)
--- NOTE | 2021-03-04 09:18 | P.PN_ITS ---
Subjective Subjective: Interval history: Teresa is more conversive today. She has no particular complaints. Not nauseated. Wants different food. Medications: Reviewed: Yes Vitals/I&O/Wt Last Vital Signs Temp 98.2 F 03/04/21 07:18 Pulse 95 03/04/21 07:18 Resp 17 03/04/21 07:18 BP 99/61 03/04/21 07:18 Pulse Ox 91 03/04/21 07:18 03/03/21 03/04/21 03/04/21 22:59 06:59 14:59 Intake Total 1613.75 / 2873.75 290 / 3163.75 1585 / 1585 Output Total 525 / 925 550 / 550 Balance 1088.75 / 1948.75 290 / 2238.75 1035 / 1035 Weight last 48 hrs Weight 81.647 kg Physical Exam Narrative: EXAM NARRATIVE: General exam no distress, speaking in full sentences Neck is supple no lymphadenopathy or thyromegaly. No apparent pain. Cardiovascular regular rate and rhythm without murmur, no S3 or S4 Lungs clear no wheezing or crackles Abdomen a few bowel sounds are Heritage. Urostomy noted. Back without significant decubiti Extremities no cyanosis clubbing. Contractures are noted. A small lesion over the skin on the right Achilles tendon is noted without any significant surrounding erythema or drainage Data : 03/04/21 04:51 03/04/21 04:51 Micro: Microbiology 03/02/21 08:31 Urine Culture - Preliminary Urine,Clean Catch Gram Negative Rods 03/02/21 06:35 Blood Culture - Preliminary Blood NEGATIVE TO DATE 03/02/21 06:50 Blood Culture - Preliminary Blood NEGATIVE TO DATE A&P Assessment and plan (1) Confusion: Consistent with acute encephalopathy. Also history of seizures, no recent obvious seizure Likely related to acute infection. Appears to be resolving. Status: Acute (2) UTI (urinary tract infection): Urine culture growing gram-negative rods. 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 Supplement again. Overall improving. Multiple other medical problems as listed in past medical history Full code Lovenox for DVT prophylaxis Discontinue IV fluids Possible discharge tomorrow if continues to improve. 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
[2021-03-04] MEDS: enoxaparin 40 mg/0.4 mL Syringe SUBCUT (17:43)
[2021-03-05] VITALS: BP 103/66; PULSE 164; RESP 16; TEMP 36.8; O2SAT 94
[2021-03-05 04:00] VITALS: BP 110/68; PULSE 91; RESP 18; TEMP 36.6; O2SAT 92
[2021-03-05 05:12] LABS: Basophils % 0.3 %; Eosinophils # 0.2 10^3/uL (0.0-0.8); Eosinophils % 1.3 %; Hemoglobin 11.7 g/dL (11.5-15.3); Mean Corpuscular HGB Conc 31.6 g/dL (30.0-36.0); Mean Corpuscular Hemoglobin 31.4 pg (28.0-34.0); Mean Corpuscular Volume 99.2 fl (81-99); Mean Platelet Volume 10.3 fL (7.4-10.4); Monocytes # 1.1 10^3/uL (0.2-0.9); Monocytes % 9.7 %; Neutrophils # 7.92 10^3/uL (1.8-7.7); Neutrophils % 70.3 %; Nucleated Red Blood Cells % 0 %; Platelet Count 302 10^3/cmm (130-400); Red Blood Count 3.73 10^6/uL (4.1-5.3); Red Cell Distribution Width 12.6 % (12.1-15.1); White Blood Count 11.3 10^3/uL (4.0-10.0)
[2021-03-05] MEDS: pantoprazole DR 40 mg Tablet PO (05:22)
[2021-03-05] MEDS: piperacillin-tazobactam 3.375 GM in sodium chloride 0.9% (plus) 50 ML IV (05:22)
[2021-03-05 05:32] LABS: Anion Gap 12.4 (5-19); Blood Urea Nitrogen 11 mg/dL (6-20); Calcium 9.1 mg/dL (8.5-10.5); Carbon Dioxide 26 mmol/L (22-29); Chloride 99 mmol/L (98-107); Glomerular Filtration Rate 235.5 mL/min (90-130); Glucose 82 mg/dL (65-115); Osmolality Calculated 276 mOsm/kg (285-295); Potassium 3.4 mmol/L (3.5-5.1); Sodium 134 mmol/L (136-145)
[2021-03-05 07:19] VITALS: BP 107/71; PULSE 92; RESP 17; TEMP 37.1; O2SAT 90
[2021-03-05 08:29] VITALS: PULSE 92; RESP 16; O2SAT 92
[2021-03-05] MEDS: levETIRAcetam 500 mg Tablet 1000 MG PO (08:56)
[2021-03-05] MEDS: gabapentin 300 mg Capsule PO ×2 (08:56→15:48)
[2021-03-05] MEDS: sennosides 8.6 mg Tablet PO (08:56)
[2021-03-05] MEDS: lacosamide 50 mg Tablet 200 MG PO (08:56)
[2021-03-05] MEDS: venlafaxine ER (24HR) 75 mg Capsule PO (08:56)
[2021-03-05] MEDS: potassium chloride ER 20 mEq Tablet 40 MEQ PO (08:56)
[2021-03-05] MEDS: polyethylene glycol 3350 Pkt 17 gm PO (08:56)
--- NOTE | 2021-03-05 09:03 | P.DS_ITS ---
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 Moraes is a 50-year-old female with underlying multiple sclerosis with lower extremity paresis who presented to the hospital with mental status change, consistent with encephalopathy. Colitis was noted with possible distal fecal impaction as well as UTI. She was admitted to the hospital and placed on IV antibiotics. This consisted of Zosyn. Cultures were obtained. Bowel regimen initiated. Throughout her hospital course she had gradual improvement, with clearing of her encephalopathy. By end of discharge she had had a bowel movement, had no abdominal pain, was back to her baseline mental status. Urine culture had grown E. coli. It was thought she could be discharged on cefdinir and Flagyl, with follow-up with her primary care provider. She was afebrile greater than 24 hours prior to discharge. Other findings on CT abdomen included cholelithiasis, kidney stone which was nonobstructive. Head CT had no acute findings. Physical Exam Narrative: EXAM NARRATIVE: General exam is an alert and conversive female in no distress Neck is supple Cardiovascular regular rate and rhythm Lungs clear Abdomen is soft, positive bowel sounds Extremities no cyanosis clubbing. Trace edema. Contractures unchanged. Discharge Data Data Completed and Pending: Completed Studies During Hospitalization Category Date Time Status CT abdomen pelvis w con* [id number] Stat Cat Scan 03/02/21 06:[address] head wo con* [id number] Stat Cat Scan 03/02/21 06:01 Completed XR chest 1V jolene ble [id number] Stat Exams 03/02/21 06:01 Completed Pending at discharge Category Date Time Status Blood Culture Sta t Lab 03/02/21 06:35 Results [place] (Vimpat ) Stat Lab 03/02/21 13:12 Received Levetiracetam Kep pra Timed Lab 03/02/21 13:07 Received Labs from last 24 hours 03/05/21 03/05/21 04:50 04:50 WBC 11.3 H RBC 3.73 L Hgb 11.7 Hct 37.0 MCV 99.2 H MCH 31.4 MCHC 31.6 RDW 12.6 Plt Count 302 MPV 10.3 Neut % (Auto) 70.3 Lymph % (Auto) 18.0 [place] % (Auto) 9.7 Eos % (Auto) 1.3 Baso % (Auto) 0.3 Neut # (Auto) 7.92 H Lymph # (Auto) 2.0 [place] # (Auto) 1.1 H Eos # (Auto) 0.2 Baso # (Auto) 0.0 Nucleated RBC % (a uto) 0 Nucleated RBCs # 0.0 Sodium 134 L Potassium 3.4 L Chloride 99 Carbon Dioxide 26 Anion Gap 12.4 BUN 11 Creatinine 0.3 L GFR Calculation 235.5 H Glucose 82 Calculated Osmolal ity 276 L Calcium 9.1 Vitals: Last Vital Signs Temp 98.8 F 03/05/21 07:19 Pulse 92 03/05/21 08:29 Resp 16 03/05/21 08:29 BP 107/71 03/05/21 07:19 Pulse Ox 92 03/05/21 08:29 Discharge Plan Discharge Patient Disposition: Xfer SNF Condition: Stable Prescriptions: New cefdinir 300 mg capsule 300 mg PO BID 7 Days Qty: 14 RF: 0 metronidazole [Flagyl] 500 mg tablet 500 mg PO TID Qty: 21 RF: 0 Continued polyethylene glycol 3350 [Miralax] 17 gram/dose powder 17 gm PO DAILY@08 RF: 0 melatonin 5 mg tablet 5 mg PO BEDTIME RF: 0 venlafaxine [Effexor XR] 75 mg capsule,extended release 24hr 75 mg PO DAILY@08 RF: 0 simethicone [Gas Relief (simethicone)] 80 mg tablet,chewable 80 mg PO QID PRN (Reason: GAS) RF: 0 alum-mag hydroxide-simeth 200-200-20 mg/5 mL suspension 30 ml PO Q4H PRN (Reason: Dyspepsia) RF: 0 gabapentin [Neurontin] 300 mg capsule 300 mg PO TID@08,16,20 RF: 0 fluticasone propion-salmeterol [Advair Diskus] 500-50 mcg/dose blister with device 1 inh INHALATION BID@,20 RF: 0 sennosides [Senokot] 8.6 mg tablet 8.6 mg PO BID@,20 RF: 0 ondansetron HCl [Zofran] 4 mg tablet 4 mg PO Q4H PRN (Reason: Nausea And Vomiting) RF: 0 ketoconazole 2 % shampoo 1 applic topical .2 x weekly Qty: 120 RF: 3 ketoconazole 2 % cream 1 applic topical DAILY Qty: 30 RF: 5 omeprazole 20 mg capsule,delayed release(DR/EC) 20 mg PO DAILY@06 RF: 0 methenamine hippurate 1 gram tablet 1 gm PO QID RF: 0 Betaseron 0.3 mg kit 0.25 mg SUBCUT .EVERY 48 HOURS RF: 0 levetiracetam 1,000 mg tablet 1,000 mg PO BID@,20 RF: 0 ProAir HFA 90 mcg/actuation HFA aerosol inhaler 2 puff inhalation QID PRN (Reason: shortness of breath or wheezing) RF: 0 loratadine 10 mg tablet 10 mg PO DAILY@08 RF: 0 Vimpat 200 mg tablet 200 mg PO BID@,20 RF: 0 Guaifenesin DM 10-100 mg/5 mL Syrup 5 ml PO Q4H PRN (Reason: Cough) RF: 0 Milk of Magnesia 400 mg/5 mL Suspension 30 ml PO DAILY PRN (Reason: Constipation) RF: 0 Fleet Enema 19-7 gram/118 mL Enema 118 ml NM DAILY PRN (Reason: Constipation) RF: 0 Saline Nasal 0.65 % Aerosol,[place] 1 - 2 spray INTRANASAL .EVERY 2 HOURS PRN (Reason: Nasal Congestion) RF: 0 baclofen 20 mg tablet See Rx Instructions .ROUTE .COMPLEX PRN (Reason: Muscle Spasm) Qty: 0 RF: 0 Changed potassium chloride 20 mEq tablet extended release 20 meq PO DAILY Qty: 0 RF: 0 Discontinued diazepam 5 mg tablet 5 mg PO BEDTIME@20 RF: 0 furosemide [Lasix] 40 mg tablet See Rx Instructions .ROUTE .COMPLEX RF: 0 Zaroxolyn 5 mg Tablet 5 mg PO DAILY@08 RF: 0 hydrocodone-acetaminophen 5-325 mg tablet 1 - 2 tab PO Q6H PRN (Reason: pain) RF: 0 Discharge Orders: Discharge Order (Routine); Ordered 03/05/21 Ordered By: Haroon Tellez Referrals: Tony Keys MD [Primary Care Provider] - 4-7 days Discharge Diet: Usual diet Discharge Activity: Increase activity as tolerated Activity Restrictions/Additional Instructions: Take all medicine as prescribed. 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
[2021-03-05 14:32] LABS: Lacosamie (Vimpat) <0.5 mcg/mL
[2021-03-05 17:10] VITALS: PULSE 92; RESP 16; O2SAT 92
[2021-03-05 20:59] LABS: Levetiracetam Keppra <2.0 mcg/mL
--- NOTE | 2021-03-09 15:24 | PC.RESP ---
SMOKING CESSATION INFORMATION SENT TO PATIENT.
== END 2021-03-05 17:11 | disposition skilled nursing facility (03) | DRG 690 ==
LOC: ER 12:33 → MEDSURG 17:15
PROVIDERS: Hospitalist; Admitting Provider Internal Medicine; Emergency Provider Family Medicine; PCP Internal Medicine; Visit Provider Internal Medicine
DX: N39.0 Urinary tract infection, site not specified (principal); G40.209 Localization-related (focal) (partial) symptomatic epilepsy and epileptic syndromes with complex partial seizures, not intractable, without status epilepticus; G93.40 Encephalopathy, unspecified; Z93.6 Other artificial openings of urinary tract status; Z99.3 Dependence on wheelchair; D64.9 Anemia, unspecified; F41.9 Anxiety disorder, unspecified; F32.A Depression, unspecified; K21.9 Gastro-esophageal reflux disease without esophagitis; I10 Essential (primary) hypertension; G35 Multiple sclerosis; Z87.442 Personal history of urinary calculi; F17.210 Nicotine dependence, cigarettes, uncomplicated; K52.9 Noninfective gastroenteritis and colitis, unspecified; K59.00 Constipation, unspecified; E87.6 Hypokalemia; B96.20 Unspecified Escherichia coli [E. coli] as the cause of diseases classified elsewhere
CPT/HCPCS: 36415; 36600; 70450; 71045; 74177; 80048; 80051; 80053; 80177; 80299; 81001; 82009; 82140; 82330; 82550; 82805; 83605; 83690; 83735; 84100; 84132; 84443; 84484; 85025; 87040; 87077; 87086; 87186; 93005; 94640; 96365; 96366; 96367; 96372; 99285; J1650; J2405; J2543; J3480; J7030; Q9967

== ENCOUNTER → 2021-04-20 08:00 | Outpatient (BNVA) | payer MEDICAID, SELFPAY | PROVIDERS: PCP Internal Medicine; Visit Provider Specialist | DX: G35 Multiple sclerosis (principal); G40.209 Localization-related (focal) (partial) symptomatic epilepsy and epileptic syndromes with complex partial seizures, not intractable, without status epilepticus; G40.409 Other generalized epilepsy and epileptic syndromes, not intractable, without status epilepticus; F32.A Depression, unspecified | CPT/HCPCS: 99214 ==

== ENCOUNTER 2021-06-13 17:20 | Outpatient (CLI) | payer MEDICAID, SELFPAY ==
[2021-06-13 18:24] LABS: Glucose Urine UA Norm (Normal); Protein Urine Neg (Negative); Urine Appearance Cloudy (CLEAR); Urine Color Dark Yellow (Yellow); pH Urine 8 (5-7)
[2021-06-13 18:25] LABS: Add Urine Microscopic? YES; Bilirubin Urine 1+ (Negative); Blood Urine 3+ (Negative); Ketones Urine Negative (Negative); Leukocyte Esterase Urine Trace (Negative); Nitrate Urine Positive (Negative); Sulfosalicylic Acid Urine Negative (Negative); Urobilinogen Urine 1 mg/dL (Negative)
[2021-06-13 18:43] LABS: Bacteria Urine 2+ /hpf; Squamous Epithelial Cell Urine 0-4 /hpf (0-5); WBC Urine 0-4 /hpf (0-5)
[2021-06-13 18:45] LABS: Amorphous Sediment Urine 2+ /hpf; Mucus Urine 2+ /hpf
[2021-06-13 18:46] LABS: Add Urine Culture? No; Triple Phosphate Crystal Urine 0-4 /hpf
[2021-06-13 18:52] LABS: Alanine Aminotransferase 444 U/L (0-33); Alkaline Phosphatase 790 IU/L (35-105); Anion Gap 15.1 (5-19); Aspartate Amino Transferase 334 U/L (0-32); Blood Urea Nitrogen 14 mg/dL (6-20); Calcium 9.5 mg/dL (8.5-10.5); Carbon Dioxide 15 mmol/L (22-29); Chloride 109 mmol/L (98-107); Globulin 3.2 g/dL (1.3-4.6); Glomerular Filtration Rate 374.5 mL/min (90-130); Glucose 104 mg/dL (65-115); Osmolality Calculated 281 mOsm/kg (285-295); Potassium 4.1 mmol/L (3.5-5.1); Sodium 135 mmol/L (136-145); Total Bilirubin 4.3 mg/dL (0.15-1.2); Total Protein 7.2 g/dL (6.6-8.7)
== END 2021-06-13 17:21 | disposition home or self-care (01) ==
LOC: LAB 17:21
PROVIDERS: PCP Internal Medicine; Visit Provider Internal Medicine
DX: N31.9 Neuromuscular dysfunction of bladder, unspecified (principal); D64.9 Anemia, unspecified
CPT/HCPCS: 80053; 81001

== ENCOUNTER 2021-06-14 18:08 | Emergency (ER) | payer MEDICAID, SELFPAY ==
[2021-06-14 18:14] VITALS: BP 142/83; PULSE 107; RESP 18; TEMP 36.8; O2SAT 99
[2021-06-14 18:17] VITALS: BMI 23.6
[2021-06-14 18:40] VITALS: BP 130/80; PULSE 105; RESP 16; O2SAT 97
[2021-06-14 19:10] LABS: Basophils % 0.1 %; Eosinophils # 0.1 10^3/uL (0.0-0.8); Eosinophils % 0.5 %; Hemoglobin 12.5 g/dL (11.5-15.3); Lymphocytes # 1.4 10^3/uL (0.8-4.8); Lymphocytes % 6.5 %; Mean Corpuscular HGB Conc 32.9 g/dL (30.0-36.0); Mean Corpuscular Hemoglobin 31.1 pg (28.0-34.0); Mean Corpuscular Volume 94.5 fl (81-99); Mean Platelet Volume 10.1 fL (7.4-10.4); Monocytes # 1.7 10^3/uL (0.2-0.9); Monocytes % 8.1 %; Neutrophils # 17.55 10^3/uL (1.8-7.7); Neutrophils % 84.2 %; Nucleated Red Blood Cells % 0 %; Platelet Count 346 10^3/cmm (130-400); Red Blood Count 4.02 10^6/uL (4.1-5.3); Red Cell Distribution Width 13.9 % (12.1-15.1); White Blood Count 20.9 10^3/uL (4.0-10.0)
--- NOTE | 2021-06-14 19:22 | CTR_ITS ---
PROCEDURE INFORMATION: Exam: CT Abdomen And Pelvis With Contrast Exam date and time: 06/14/2021 7:22 PM Age: 51 years old Clinical indication: Abnormal findings; Abnormal lab test; Elevated liver enzymes; Nausea and vomiting; Prior surgery; Surgery date: 6+ months; Surgery type: Urostomy, hyst; Patient HX: N/v jaundiced w elev liver enzymes; Additional info: Vomiting, elevated liver enzymes TECHNIQUE: Imaging protocol: Computed tomography of the abdomen and pelvis with contrast. Radiation optimization: All CT scans at this facility use at least one of these dose optimization techniques: automated exposure control; mA and/or kV adjustment per patient size (includes targeted exams where dose is matched to clinical indication); or iterative reconstruction. Contrast material: OMNI 300; Contrast volume: 95 ml; Contrast route: INTRAVENOUS (IV); COMPARISON: CT abdomen pelvis w con* [id number] 03/02/2021 6:25 AM RADIATION DOSE METRICS: Total DLP (mGy-cm): 1421.16 FINDINGS: Lungs: Dependent atelectasis in the lungs bilaterally. Pleural spaces: No pleural effusion. Heart: Stable moderate enlargement of the visualized portions of the heart. Liver: The liver is unremarkable. Gallbladder and bile ducts: The gallbladder is contracted. Few small stones in the gallbladder, the number of stones is less compared with the previous study. There are also faintly areas of increased density in the common bile duct in the head of the pancreas suspicious for retained biliary stones with interval development of mild biliary ductal dilatation. Pancreas: Enlargement of the pancreas. Moderate peripancreatic inflammatory change and free fluid, consistent with moderate acute pancreatitis. Normal enhancement of the pancreas. No evidence for pancreatic necrosis. No pancreatic ductal dilatation. Spleen: The spleen is unremarkable. Adrenal glands: The right and left adrenal glands are unremarkable. Kidneys and ureters: Nonobstructing stones in both right and left kidneys. Mild inflammation and wall thickening of the right renal pelvis suspicious for pyelitis, findings are mildly increased. Stomach and bowel: Stable postsurgical changes consistent with a cystectomy with bilateral ureteral diversion, right lower quadrant ileal loop and ileostomy. The rectum is distended up to 9.9 x 9.9 cm secondary to stool. No evidence for rectal wall thickening. No pneumatosis. Appendix: The appendix is visualized and is unremarkable. No findings to suggest acute appendicitis. Intraperitoneal space: No free intraperitoneal air. No ascites. No loculated fluid collections to suggest an abscess. Vasculature: Moderate atherosclerotic changes in the visualized arteries. No evidence for aortic aneurysm or aortic dissection. Hepatic veins, portal veins, splenic vein, and SMV are patent. Lymph nodes: No lymphadenopathy. Urinary bladder: See Stomach and bowel finding. Reproductive: Stable changes consistent with a previous hysterectomy. The ovaries are not definitely visualized, not an expected in a postmenopausal female. This may be due to ovarian atrophy. Alternatively, the patient may have had a previous bilateral oophorectomy. Bones/joints: Enchondroma versus a bone infarct in the right proximal metaphysis. Degenerative changes in the spine, sacroiliac joints, and hips. Bones are diffusely osteopenic. Soft tissues: No acute abnormality in the extra-abdominal soft tissues. CT/CT abdomen pelvis w con* [id number] IMPRESSION: 1. Changes consistent with moderate acute pancreatitis, possibly secondary to gallstone pancreatitis. 2. The gallbladder is contracted. Few small stones in the gallbladder, the number of stones is less compared with the previous study. There are also faintly areas of increased density in the common bile duct in the head of the pancreas suspicious for retained biliary stones with interval development of mild biliary ductal dilatation. 3. Bilateral nonobstructing renal stones. 4. Mild inflammation and wall thickening of the right renal pelvis suspicious for pyelitis, findings are mildly increased. Recommend clinical correlation. 5. Stable postsurgical changes consistent with a cystectomy with bilateral ureteral diversion, right lower quadrant ileal loop and ileostomy. 6. Findings suggesting a stool impaction in the rectum. 7. Incidental/nonacute findings are listed in the report.
[2021-06-14] MEDS: sodium chloride 0.9% 1,000 ML 999 ML IV (19:35)
--- NOTE | 2021-06-14 19:37 | W.ED.GENADLT ---
Documented by User: Tico Edge DO 06/15/21 06:53 HPI - General Adult General: Chief complaint: General Medical Stated complaint: ELEVATED LIVER ENZYMES Time Seen by Provider: 06/14/21 18:24 Source: patient History of Present Illness: 51-year-old female with a history of MS. She is a intermediate patient. She states that she was sent here because her liver enzymes were high, and she is jaundiced . On further questioning, she states that she has been vomiting for the last few days, no belly pain. No diarrhea. She has a history of a urostomy placement as well as a hysterectomy. She denies any fever. She denies cough or congestion. Radiation: non-radiation Quality: other Pain Consistency: constant Relieving factors: none Exacerbating factors: other Associated symptoms: Reports nausea, vomiting and weakness (Generalized); Deny chest pain, confusion, diaphoresis, dyspnea, fevers/chills, headache(s) or short of breath Review of Systems Const: Denies: diaphoresis ENMT: Denies: throat pain Card: Denies: chest pain Resp: Denies: dyspnea, productive cough or non-productive cough GI: Reports: nausea and vomiting : Denies: difficulty voiding Neuro: Denies: headache(s) or confusion Chris/Lymph: Denies: easy bleeding PFSH ED PFSH: Medical History Anemia Anxiety Cerebellar tremor Depression Depression, endogenous GERD (gastroesophageal reflux disease) Hypertension Multiple sclerosis Onychodystrophy Plantar callus Seizure Staghorn renal calculus Struvite kidney stones Surgical History H/O cervical biopsy H/O: hysterectomy History of biopsy of bladder History of urostomy Family History Family/Other Cancer Hyperlipidemia Hypertension Denies family history of Diabetes CAD (coronary artery disease) Clotting disorder Dementia Psychiatric illness Chronic kidney disease (CKD) Suicide Anesthesia complication Bleeding disorder Family history of premature coronary artery disease Lung disease Stroke Social History Smoking and tobacco status: never smoked Alcohol intake: never Marital status: Current occupational status: retired and disabled History of recent travel: No Physical Exam Const: COMMON NORMALS: patient oriented x3 GENERAL APPEARANCE: cooperative and comfortable HENMT: COMMON NORMALS: normocephalic, atraumatic and Normal external nose present HEAD & SCALP: normocephalic and atraumatic NOSE: Normal external nose present and Normal nares present Eye: COMMON NORMALS: Equal, round and reactive pupils present and EOMs intact bilaterally SCLERA: scleral abnormal Laterality of scleral abnormality: positive bilateral scleral icterus PUPIL: Yes Equal, round and reactive pupils present Neck/C-Spine: COMMON NORMALS: full ROM Resp: COMMON NORMALS: normal respiratory effort, No use of accessory muscles and clear to auscultation bilaterally AUSCULTATION: clear to auscultation bilaterally Cardio: COMMON NORMALS: regular rate and regular rhythm RATE: regular rate RHYTHM: regular rhythm GI: COMMON NORMALS: Normal to inspection, nondistended, normoactive bowel sounds present, Soft to palpation and non-tender PALPATION: Yes Soft to palpation Neuro: MOISE COMA SCALE: document GCS findings [place] coma scale eye opening: Spontaneous Moise coma scale verbal response: Orientated [place] coma scale motor response: Obey commands [place] coma scale total score: 15 COMMON NORMALS: patient oriented x3 Psych: COMMON NORMALS: mental status grossly normal Skin: GENERAL SKIN EXAM: jaundice (minimal) Course Vital Signs: Vital signs: Vital Signs Temperature 98.2 F 06/14/21 18:14 Pulse Rate 91 06/15/21 11:28 Respiratory Rate 22 H 06/15/21 11:28 Blood Pressure 129/79 06/15/21 10:48 Pulse Oximetry 96 06/15/21 11:28 [facility] - General Adult Medical Decision Making 51-year-old female with a history of MS. She lives in a intermediate because of this. Her white blood cell count is 21. Bicarbonate 16. White count is 12.5. She has a bilirubin of 6.5, with elevated liver enzymes. Her lipase is 644. CT shows evidence of pancreatitis, with mild biliary ductal dilatation, and increased density in the common bile duct in the head of the pancreas. This is evidence of gallstone pancreatitis, with likely choledocholithiasis. We cannot perform ERCP procedures at this facility, and have no GI subspecialty. We have made multiple calls to multiple facilities to ask about bed availability for a medical surgical bed at a facility with ERCP capability. There is no beds available in [place], or [facility] we have 3 potential beds later this morning. The patient has had fluid and IV Zosyn, which we will continue here. 0650. Still no ERCP beds available at any facilities. A couple of [facility] facilities will have discharges later this morning, and we are on the list for them. Patient has continued to get IV fluid, and antibiotics here. She will be checked out to Dr. Stevenson at shift change until appropriate disposition can be made. Lab Data : 06/14/21 19:00 06/14/21 19:00 Radiology Impressions Abdomen/Pelvis CT 06/14/21: IMPRESSION: 1. Changes consistent with moderate acute pancreatitis, possibly secondary to gallstone pancreatitis. 2. The gallbladder is contracted. Few small stones in the gallbladder, the number of stones is less compared with the previous study. There are also faintly areas of increased density in the common bile duct in the head of the pancreas suspicious for retained biliary stones with interval development of mild biliary ductal dilatation. 3. Bilateral nonobstructing renal stones. 4. Mild inflammation and wall thickening of the right renal pelvis suspicious for pyelitis, findings are mildly increased. Recommend clinical correlation. 5. Stable postsurgical changes consistent with a cystectomy with bilateral ureteral diversion, right lower quadrant ileal loop and ileostomy. 6. Findings suggesting a stool impaction in the rectum. 7. Incidental/nonacute findings are listed in the report. Laboratory Results WBC 20.9 10^3/uL (4.0-10.0) H 06/14/21 19:00 RBC 4.02 10^6/uL (4.1-5.3) L 06/14/21 19:00 Hgb 12.5 g/dL (11.5-15.3) 06/14/21 19:00 Hct 38.0 % (37.0-47.0) 06/14/21 19:00 MCV 94.5 fl (81-99) 06/14/21 19:00 MCH 31.1 pg (28.0-34.0) 06/14/21 19:00 MCHC 32.9 g/dL (30.0-36.0) 06/14/21 19:00 RDW 13.9 % (12.1-15.1) 06/14/21 19:00 Plt Count 346 10^3/cmm (130-400) 06/14/21 19:00 MPV 10.1 fL (7.4-10.4) 06/14/21 19:00 Neut % (Auto) 84.2 % 06/14/21 19:00 Lymph % (Auto) 6.5 % 06/14/21 19:00 Kimble % (Auto) 8.1 % 06/14/21 19:00 Eos % (Auto) 0.5 % 06/14/21 19:00 Baso % (Auto) 0.1 % 06/14/21 19:00 Neut # (Auto) 17.55 10^3/uL (1.8-7.7) H 06/14/21 19:00 Lymph # (Auto) 1.4 10^3/uL (0.8-4.8) 06/14/21 19:00 Kimble # (Auto) 1.7 10^3/uL (0.2-0.9) H 06/14/21 19:00 Eos # (Auto) 0.1 10^3/uL (0.0-0.8) 06/14/21 19:00 Baso # (Auto) 0.0 10^3/uL (0.0-0.1) 06/14/21 19:00 Nucleated RBC % (auto) 0 % 06/14/21 19:00 Nucleated RBCs # 0.0 /100WBC 06/14/21 19:00 PT 12.90 SECONDS (12.1-14.9) 06/14/21 19:33 INR 0.94 (0.8-1.2) 06/14/21 19:33 Sodium 134 mmol/L (136-145) L 06/14/21 19:00 Potassium 4.3 mmol/L (3.5-5.1) 06/14/21 19:00 Chloride 105 mmol/L (98-107) 06/14/21 19:00 Carbon Dioxide 16 mmol/L (22-29) L 06/14/21 19:00 Anion Gap 17.3 (5-19) 06/14/21 19:00 BUN 15 mg/dL (6-20) 06/14/21 19:00 Creatinine 0.2 mg/dL (0.5-0.9) L 02/06/22 19:00 GFR Calculation 374.5 mL/min (90-130) H 06/14/21 19:00 Glucose 96 mg/dL (65-115) 06/14/21 19:00 Calculated Osmolality 279 mOsm/kg (285-295) L 06/14/21 19:00 Calcium 8.6 mg/dL (8.5-10.5) 06/14/21 19:00 Total Bilirubin 6.5 mg/dL (0.15-1.2) H 06/14/21 19:00 AST 300 U/L (0-32) H 06/14/21 19:00 ALT 365 U/L (0-33) H 06/14/21 19:00 Alkaline Phosphatase 851 IU/L (35-105) H 06/14/21 19:00 Total Protein 7.6 g/dL (6.6-8.7) 06/14/21 19:00 Albumin 3.7 g/dL (3.5-5.2) 06/14/21 19:00 Globulin 3.9 g/dL (1.3-4.6) 06/14/21 19:00 Lipase 644 U/L (13-60) H 06/14/21 19:00 SARS-CoV-2 Ag (Rapid) Negative (Negative) 06/15/21 00:17 Discharge Plan Discharge Patient Disposition: Xfer Short-Term Hosp Clinical Impression: Acute gallstone pancreatitis, Choledocholithiasis Condition: Serious Referrals: Tony Keys MD [Primary Care Provider] - Sign Out Sign Out Data: Patient Sign Out occurred on 06/15/21 at 07:07. Patient's care was discussed, and care was transferred from to Kodi Stevenson DO. Coding Level of Care Code ED Assembler Equipment for Chg Fwd Exam Comprehensive Documented by User: Kodi Stevenson DO 06/16/21 07:10 HPI - General Adult General: Chief complaint: General Medical Stated complaint: ELEVATED LIVER ENZYMES Time Seen by Provider: 06/14/21 18:24 PFSH ED PFSH: Medical History Anemia Anxiety Cerebellar tremor Depression Depression, endogenous GERD (gastroesophageal reflux disease) Hypertension Multiple sclerosis Onychodystrophy Plantar callus Seizure Staghorn renal calculus Struvite kidney stones Surgical History H/O cervical biopsy H/O: hysterectomy History of biopsy of bladder History of urostomy Family History Family/Other Cancer Hyperlipidemia Hypertension Denies family history of Diabetes CAD (coronary artery disease) Clotting disorder Dementia Psychiatric illness Chronic kidney disease (CKD) Suicide Anesthesia complication Bleeding disorder Family history of premature coronary artery disease Lung disease Stroke Social History Smoking and tobacco status: never smoked Alcohol intake: never Marital status: Current occupational status: retired and disabled History of recent travel: No Physical Exam Neuro: MOISE COMA SCALE: document GCS findings Moise coma scale total score: 15 Course Vital Signs: Vital signs: Vital Signs Temperature 98.2 F 06/14/21 18:14 Pulse Rate 91 06/15/21 11:28 Respiratory Rate 22 H 06/15/21 11:28 Blood Pressure 129/79 06/15/21 10:48 Pulse Oximetry 96 06/15/21 11:28 [facility] - General Adult Medical Decision Making 51-year-old female with a history of MS. She lives in a intermediate because of this. Her white blood cell count is 21. Bicarbonate 16. White count is 12.5. She has a bilirubin of 6.5, with elevated liver enzymes. Her lipase is 644. CT shows evidence of pancreatitis, with mild biliary ductal dilatation, and increased density in the common bile duct in the head of the pancreas. This is evidence of gallstone pancreatitis, with likely choledocholithiasis. We cannot perform ERCP procedures at this facility, and have no GI subspecialty. We have made multiple calls to multiple facilities to ask about bed availability for a medical surgical bed at a facility with ERCP capability. There is no beds available in [place], or [place] we have 3 potential beds later this morning. The patient has had fluid and IV Zosyn, which we will continue here. 0650. Still no ERCP beds available at any facilities. [facility] this [facility], and we are on the list for them. Patient has continued to get IV fluid, and antibiotics here. She will be checked out to Dr. Stevenson at shift change until appropriate disposition can be made. Care assumed from Dr. Edge at change of shift. We will try to make arrangements for transfer the patient to undergo ERCP we were able to get the receiving physician in [place]. Discussed with him patient transferred in stable condition she has been receiving antibiotics. Medical Records I reviewed the patient's medical records. Lab Data I reviewed the patient's lab results. : 06/14/21 19:00 06/14/21 19:00 Radiology Impressions Abdomen/Pelvis CT 06/14/21:22 IMPRESSION: 1. Changes consistent with moderate acute pancreatitis, possibly secondary to gallstone pancreatitis. 2. The gallbladder is contracted. Few small stones in the gallbladder, the number of stones is less compared with the previous study. There are also faintly areas of increased density in the common bile duct in the head of the pancreas suspicious for retained biliary stones with interval development of mild biliary ductal dilatation. 3. Bilateral nonobstructing renal stones. 4. Mild inflammation and wall thickening of the right renal pelvis suspicious for pyelitis, findings are mildly increased. Recommend clinical correlation. 5. Stable postsurgical changes consistent with a cystectomy with bilateral ureteral diversion, right lower quadrant ileal loop and ileostomy. 6. Findings suggesting a stool impaction in the rectum. 7. Incidental/nonacute findings are listed in the report. Laboratory Results WBC 20.9 10^3/uL (4.0-10.0) H 06/14/21 19:00 RBC 4.02 10^6/uL (4.1-5.3) L 06/14/21 19: Hgb 12.5 g/dL (11.5-15.3) 06/14/21 19: Hct 38.0 % (37.0-47.0) 06/14/21 19: MCV 94.5 fl (81-99) 06/14/21 19: MCH 31.1 pg (28.0-34.0) 06/14/21 19:00 MCHC 32.9 g/dL (30.0-36.0) 06/14/21 19:00 RDW 13.9 % (12.1-15.1) 06/14/21 19:00 Plt Count 346 10^3/cmm (130-400) 06/14/21 19:00 MPV 10.1 fL (7.4-10.4) 06/14/21 19:00 Neut % (Auto) 84.2 % 06/14/21 19:00 Lymph % (Auto) 6.5 % 06/14/21 19:00 Kimble % (Auto) 8.1 % 06/14/21 19:00 Eos % (Auto) 0.5 % 06/14/21 19:00 Baso % (Auto) 0.1 % 06/14/21 19:00 Neut # (Auto) 17.55 10^3/uL (1.8-7.7) H 06/14/21 19:00 Lymph # (Auto) 1.4 10^3/uL (0.8-4.8) 06/14/21 19:00 Kimble # (Auto) 1.7 10^3/uL (0.2-0.9) H 06/14/21 19:00 Eos # (Auto) 0.1 10^3/uL (0.0-0.8) 06/14/21 19:00 Baso # (Auto) 0.0 10^3/uL (0.0-0.1) 06/14/21 19:00 Nucleated RBC % (auto) 0 % 06/14/21 19:00 Nucleated RBCs # 0.0 /100WBC 06/14/21 19:00 PT 12.90 SECONDS (12.1-14.9) 06/14/21 19:33 INR 0.94 (0.8-1.2) 06/14/21 19:33 Sodium 134 mmol/L (136-145) L 06/14/21 19:00 Potassium 4.3 mmol/L (3.5-5.1) 06/14/21 19:00 Chloride 105 mmol/L (98-107) 06/14/21 19:00 Carbon Dioxide 16 mmol/L (22-29) L 06/14/21 19:00 Anion Gap 17.3 (5-19) 06/14/21 19:00 BUN 15 mg/dL (6-20) 06/14/21 19:00 Creatinine 0.2 mg/dL (0.5-0.9) L 06/14/21 19:00 GFR Calculation 374.5 mL/min (90-130) H 06/14/21 19:00 Glucose 96 mg/dL (65-115) 06/14/21 19:00 Calculated Osmolality 279 mOsm/kg (285-295) L 06/14/21 19:00 Calcium 8.6 mg/dL (8.5-10.5) 06/14/21 19:00 Total Bilirubin 6.5 mg/dL (0.15-1.2) H 06/14/21 19:00 AST 300 U/L (0-32) H 06/14/21 19:00 ALT 365 U/L (0-33) H 06/14/21 19:00 Alkaline Phosphatase 851 IU/L (35-105) H 06/14/21 19:00 Total Protein 7.6 g/dL (6.6-8.7) 06/14/21 19:00 Albumin 3.7 g/dL (3.5-5.2) 06/14/21 19:00 Globulin 3.9 g/dL (1.3-4.6) 06/14/21 19:00 Lipase 644 U/L (13-60) H 06/14/21 19:00 SARS-CoV-2 Ag (Rapid) Negative (Negative) 06/15/21 00:17 Discharge Plan Discharge Patient Disposition: Xfer Short-Term Hosp Clinical Impression: Acute gallstone pancreatitis, Choledocholithiasis Condition: Serious Referrals: Tony Keys MD [Primary Care Provider] - Sign Out Sign Out Data: Patient Sign Out occurred on 06/15/21 at 07:07. Patient's care was discussed, and care was transferred from to Kodi Stevenson DO. Coding Level of Care Code ED Assembler Equipment for Louise Fwd Exam Comprehensive
[2021-06-14 19:50] LABS: Alanine Aminotransferase 365 U/L (0-33); Albumin Level 3.7 g/dL (3.5-5.2); Alkaline Phosphatase 851 IU/L (35-105); Anion Gap 17.3 (5-19); Aspartate Amino Transferase 300 U/L (0-32); Blood Urea Nitrogen 15 mg/dL (6-20); Calcium 8.6 mg/dL (8.5-10.5); Carbon Dioxide 16 mmol/L (22-29); Chloride 105 mmol/L (98-107); Globulin 3.9 g/dL (1.3-4.6); Glomerular Filtration Rate 374.5 mL/min (90-130); Glucose 96 mg/dL (65-115); Osmolality Calculated 279 mOsm/kg (285-295); Potassium 4.3 mmol/L (3.5-5.1); Sodium 134 mmol/L (136-145); Total Bilirubin 6.5 mg/dL (0.15-1.2); Total Protein 7.6 g/dL (6.6-8.7)
[2021-06-14 19:57] LABS: INR 0.94 (0.8-1.2)
[2021-06-14 19:57] LABS: Lipase 644 U/L (13-60)
[2021-06-14 20:20] VITALS: BP 169/97; PULSE 104; RESP 20; O2SAT 100
[2021-06-14] MEDS: iohexol 300 mg/mL 100 mL Btl IV (20:41)
--- NOTE | 2021-06-14 20:55 | PC.NURSE ---
William Cohen provided update at this time.
[2021-06-14 21:22] VITALS: BP 152/88; PULSE 86; RESP 16; O2SAT 97
[2021-06-14 22:24] VITALS: BP 165/99; PULSE 68; RESP 16; O2SAT 96
[2021-06-14] MEDS: piperacillin-tazobactam 3.375 GM in sodium chloride 0.9% (plus) 50 ML IV (22:44)
--- NOTE | 2021-06-14 22:54 | PC.NURSE ---
This RN gave report to HARINI Donovan at this time who will assume care at this time.
[2021-06-15 00:59] LABS: SARS Covid-2 Antigen Negative (Negative)
[2021-06-15] MEDS: sodium chloride 0.9% 1,000 ML 150 ML IV ×2 (02:23→09:28)
[2021-06-15 04:54] VITALS: BP 124/78; PULSE 86; RESP 18; O2SAT 96
--- NOTE | 2021-06-15 06:06 | PC.NURSE ---
report given to Tran SCHULER
[2021-06-15 07:10] VITALS: BP 136/84; PULSE 88; RESP 22; O2SAT 96
[2021-06-15] MEDS: piperacillin-tazobactam 3.375 GM in sodium chloride 0.9% (plus) 50 ML IV (07:16)
[2021-06-15 08:00] VITALS: BP 132/79; PULSE 85; RESP 23; O2SAT 96
[2021-06-15 08:41] VITALS: BP 132/79; PULSE 86; RESP 17; O2SAT 95
[2021-06-15 10:48] VITALS: BP 129/79; PULSE 95; RESP 23; O2SAT 96
--- NOTE | 2021-06-15 11:05 | PC.NURSE ---
Linens and undergarments changed. Patient reports no further needs at this point.
[2021-06-15 11:28] VITALS: PULSE 91; RESP 22; O2SAT 96
== END 2021-06-15 11:15 | disposition short-term general hospital (02) ==
PROVIDERS: Emergency Medicine; Emergency Provider Family Medicine; PCP Internal Medicine
DX: K85.10 Biliary acute pancreatitis without necrosis or infection (principal); K80.70 Calculus of gallbladder and bile duct without cholecystitis without obstruction; I10 Essential (primary) hypertension; G35 Multiple sclerosis; Z20.822 Contact with and (suspected) exposure to COVID-19
CPT/HCPCS: 36415; 74177; 80053; 83690; 85025; 85610; 87426; 96361; 96365; 99285; J2543; J7030; Q9967

== ENCOUNTER 2021-07-09 09:39 | Outpatient (CLI) | payer MEDICAID, SELFPAY ==
--- NOTE | 2021-07-09 10:00 | XR_ITS ---
WS: [id number] K[facility], AP view, 07/09/2021 Clinical Data: STAGHORN RENAL CALCULUS Comparison: [facility]UB, 01/08/2021. Findings: There is a staghorn calculus overlying the right kidney. There are calcifications overlying the regio n left kidney obscured by overlying bowel gas and fecal material. There is an accessory tube adjacent to the right side of the T12, L1 and L2 vertebral bodies possibly in the biliary system. The patient has had a cystectomy and the ostomy site overlies the right kidney. There is a large amount of fecal material throughout the colon. XR/XR KUB [id number] Impression: 1. Staghorn calculus of the right kidney. 2. Probable left renal calcifications. 3. History of cystectomy with urinary diversion. 4. Probable small tube in the biliary system.
== END 2021-07-09 09:40 | disposition home or self-care (01) ==
LOC: RAD 09:42
PROVIDERS: PCP Internal Medicine; Visit Provider Urology
DX: N20.0 Calculus of kidney (principal)
CPT/HCPCS: 74018

== ENCOUNTER 2021-07-16 12:35 | Day surgery (SDC) | payer MEDICAID, SELFPAY ==
[2021-07-16] VITALS (11 sets, daily range): BP systolic 127–177; BP diastolic 79–117; PULSE 75–98; RESP 14–18; TEMP 36.7–37; O2SAT 96–98
--- NOTE | 2021-07-16 12:48 | W.PM.OPSUD ---
Surgery/Procedure H&P Update DATE OF PROCEDURE: July 16, 2021 DATE H&P PERFORMED: 07/07/21 H&P UPDATE INFORMATION: I have reviewed H&P completed within last 30 days, I have examined patient prior to procedure and No changes to prior documentation PREOP DIAGNOSIS: Gallstone pancreatitis PLANNED PROCEDURE: Operation Date: 07/16/21 14:30 Proposed Procedures p Laparoscopic Cholecystectomy 00697/k82.9(Not Applicable) - Gregg Lew MD
--- NOTE | 2021-07-16 13:24 | P.ANESASSM_ITS ---
Pre-Anesthetic Assessment Height/Weight: Height 1.73 m Temp Pulse Resp BP Pulse Ox 98.0 F 82 16 127/79 97 07/16/21 13:12 07/16/21 13:12 07/16/21 13:12 07/16/21 13:12 07/16/21 13:12 Preop Diagnosis: Gallstone pancreatitis Operation Date: 07/16/21 14:30 Proposed Procedures p Laparoscopic Cholecystectomy 70601/k82.9(Not Applicable) - Gregg Lew MD Familial anesthetic complications: None Was Beta Kofi taken within 24 hours: N/A Was Clonidine taken within 24 hours: N/A Social Tobacco and No alcohol Exam alert, oriented x 3 and regular rate & rhythm Airway Submandibular: within normal limits Cervical ROM: within normal limits Mallampati: Class II Dentition: false Pulmonary Chronic Obstructive Pulmonary Disease CV/HEM Hypertension GI Gastroesophageal Reflux Disease Neuropsych Anxiety, Depression and Seizure MS, paraplegia--wheelchair bound Anesthetic Plan ASA status: 3 Anesthesia: General Risk of > 500 ml blood loss (7ml/kg in children): No Medications/Allergies Home Medications Medication Instructions Recorded Confirmed Last Taken Type fluticasone 500 mcg-salmeterol 50 1 inh INHALATION BID@08,08/21/19 07/16/21 07/16/21 08:00 History mcg/dose blistr powdr for inhalation (Advair Diskus) gabapentin 300 mg capsule 300 mg PO TID@08,16,08/21/19 07/16/21 07/16/21 08:00 History (Neurontin) melatonin 5 mg tablet 5 mg PO BEDTIME@20 tab 08/21/19 07/15/21 Unknown History polyethylene glycol 3350 17 17 gm PO DAILY@08 08/21/19 07/15/21 Unknown History gram/dose oral powder (Miralax) simethicone 80 mg chewable tablet 80 mg PO QID PRN tab 08/21/19 07/15/21 Unknown History (Gas Relief (simethicone)) methenamine hippurate 1 gram 1 gm PO QID 01/08/20 07/16/21 07/16/21 08:00 History tablet (Hiprex) omeprazole 20 mg capsule,delayed 20 mg PO DAILY@06 01/08/20 07/16/21 07/16/21 06:00 History release ondansetron HCl 4 mg tablet 4 mg PO Q4H PRN 07/08/20 07/15/21 Unknown History (Zofran) sennosides 8.6 mg tablet (Senokot) 8.6 mg PO BID@,07/08/20 07/15/21 Unknown History ketoconazole 2 % shampoo 1 applic TOPICAL .2 x weekly #120 02/17/21 07/15/21 Unknown Rx ml ketoconazole 2 % topical cream 1 applic TOPICAL DAILY #30 g 02/17/21 07/15/21 Unknown Rx albuterol sulfate 90 mcg/actuation 2 puff INHALATION QID 03/02/21 07/16/21 07/16/21 08:00 History aerosol inhaler (ProAir HFA) loratadine 10 mg tablet 10 mg PO DAILY@08 03/02/21 07/16/21 07/16/21 08:00 History magnesium hydroxide 400 mg/5 mL 30 ml PO DAILY PRN 03/02/21 07/15/21 Unknown History oral suspension (Milk of Magnesia) sodium chloride 0.65 % nasal spray 1 - 2 spray INTRANASAL .EVERY 2 03/02/21 07/15/21 Unknown History aerosol (Saline Nasal) HOURS PRN sodium phosphates 19 gram-7 118 ml MI DAILY PRN 03/02/21 07/15/21 Unknown History gram/118 mL enema (Fleet Enema) interferon beta-1b 0.3 mg 0.25 mg SUBCUT .EVERY 48 HOURS #14 04/20/21 07/15/21 Unknown Rx subcutaneous kit (Betaseron) ea levetiracetam 1,000 mg tablet 1,000 mg PO BID@08,20 #60 tab 04/20/21 07/15/21 Unknown Rx potassium chloride 20 mEq 20 meq PO BID@08,20 04/20/21 07/16/21 07/16/21 08:00 History tablet,extended release venlafaxine 150 mg 150 mg PO DAILY@08 #30 cap 04/20/21 07/16/21 07/16/21 08:00 Rx capsule,extended release 24 hr lacosamide 150 mg tablet 150 mg PO BID@08,20 #60 tab 04/21/21 07/16/21 07/16/21 08:00 Rx Probiotic 1 cap PO TID@08,12,20 06/15/21 07/15/21 Unknown History baclofen 20 mg tablet See Rx Instructions .ROUTE 07/15/21 07/16/21 07/16/21 08:00 History .COMPLEX PRN Allergies Allergy/AdvReac Type Severity Reaction Status Date / Time latex Allergy ALGY-Rash Verified 07/15/21 10:24 [facility] Anesthesia Medical History Anemia Anxiety Cerebellar tremor Depression Depression, endogenous Gallstone pancreatitis GERD (gastroesophageal reflux disease) Hypertension Multiple sclerosis Onychodystrophy Plantar callus Seizure Staghorn renal calculus Struvite kidney stones Surgical History H/O cervical biopsy H/O: hysterectomy History of biopsy of bladder History of urostomy S/P ERCP Family History Family/Other Cancer Hyperlipidemia Hypertension Denies family history of Diabetes CAD (coronary artery disease) Clotting disorder Dementia Psychiatric illness Chronic kidney disease (CKD) Suicide Anesthesia complication Bleeding disorder Family history of premature coronary artery disease Lung disease Stroke Social History Smoking and tobacco status: current every day smoker cigarettes Packs smoked per day: 0.5 Alcohol intake: never Marital status: Current occupational status: retired and disabled History of recent travel: No Data Anesthesia Cardiac Studies: No Data to Display
--- NOTE | 2021-07-16 14:04 | PM.OP ---
Operative Report Date of procedure: July 16, 2021 Pre-op diagnosis: Gallstone pancreatitis History of cystectomy with urostomy in the right upper quadrant Post-op diagnosis: same Procedure done: Laparoscopic cholecystectomy Surgeon: Gregg Lew Anesthesia: General Condition: stable Disposition: PACU Procedure: The patient was taken to the operating room and was intubated under general anesthesia. After the antibiotic had been administered, the abdomen was prepped and draped in a sterile manner. The urostomy was draped separately from the operative field. using a #15 blade, a 1 centimeter incision was made in the epigastrium superior to the laparotomy scar and using an open Enrique technique the peritoneal cavity was entered. A 10 millimeter port was placed and 15 millimeters of pneumoperitoneum was created. A 10 millimeter, 30 degrees scope was then introduced. Three 5 millimeter ports were placed in the midclavicular and the anterior axillary line and posterior to the anterior axillary line two fingerbreadths below the costal margin on the right side under the direct visualization. Ratcheted forceps were introduced into the lateral most port and was used to retract the fundus of the gallbladder cephalad and using forceps the infundibulum of the gallbladder was retracted laterally. Using L-hook cautery the peritoneum overlying the Calot's triangle was opened medially and laterally until the cystic duct and the cystic artery were skeletonized. Dissection was carried along the body of the gallbladder and after ensuring critical view of safety, 4 clips applied on the cystic duct and 3 clips applied on the cystic artery and cut leaving, 3 clips on the remaining portion of the duct and 2 clips on the remaining portion of the artery. The rest of the gallbladder was dissected off the liver using L-hook cautery. There was no bleeding or bile leaking noted from the gallbladder fossa and the clips appeared to be in place. An EndoCatch bag was introduced to remove the gallbladder. All the ports were removed under direct visualization and there was no bleeding noted from the port sites. The fascia of the 1 cm port was closed using [id number] 0 Vicryl sutures and the subcutaneous tissue was approximated using 3-0 Vicryl sutures. The skin at all four ports were closed using 4-0 Monocryl and Dermabond. A total of 10 millimeters of 0.5% Marcaine was infiltrated around the port sites. The patient was stable throughout the procedure.
[2021-07-16] MEDS: sodium chloride 0.9% 1,000 ML 30 ML IV (14:15)
--- NOTE | 2021-07-16 15:55 | ANE.PACU2 ---
Inpatient post-anesthesia follow up: Airway intact: Yes Vital signs: Temperature 98.6 F Pulse Rate 85 Respiratory Rate 18 Blood Pressure 143/114 Pulse Oximetry 96 Oxygen Delivery Me thod Simple Mask Oxygen Flow Rate 6 Fraction of Inspir ed Oxygen Hydration adequate: Yes Nausea and vomiting: No Pain level: 2 Mental status: Baseline
[2021-07-16] MEDS: hyDRALAzine 20 mg/mL INJ 1 mL (15:58)
[2021-07-16] MEDS: ondansetron 2 mg/ML SDV 2 mL 4 MG IVP (16:35)
--- NOTE | 2021-07-16 16:37 | SUR.PHASEII ---
RECEIVED PATIENT FROM PACU. A+O X 3. VENTILATING WELL. MEDICATED FOR NAUSEA. DISCHARGE INSTRUCTIONS REVIEWED WITH [facility] STAFF AND PATIENT.
== END 2021-07-16 17:05 | disposition home or self-care (01) ==
PROVIDERS: PCP Internal Medicine; Visit Provider Surgery
PROC: 0FT44ZZ Resection of Gallbladder, Percutaneous Endoscopic Approach (ICD-10-PCS; CPT 47562; principal; 2021-07-16 14:20)
DX: K80.10 Calculus of gallbladder with chronic cholecystitis without obstruction (principal); J44.9 Chronic obstructive pulmonary disease, unspecified; I10 Essential (primary) hypertension; K21.9 Gastro-esophageal reflux disease without esophagitis; F41.9 Anxiety disorder, unspecified; F32.9 Major depressive disorder, single episode, unspecified; G82.20 Paraplegia, unspecified; Z99.3 Dependence on wheelchair; F17.210 Nicotine dependence, cigarettes, uncomplicated
CPT/HCPCS: 47562; 88304; J0360; J0690; J1100; J1200; J2405; J3010; J3490; J7030

== ENCOUNTER → 2021-09-16 09:19 | Outpatient (BNVA) | payer MEDICAID, SELFPAY | PROVIDERS: PCP Internal Medicine; Visit Provider Specialist | DX: G35 Multiple sclerosis (principal); G40.309 Generalized idiopathic epilepsy and epileptic syndromes, not intractable, without status epilepticus; Z99.3 Dependence on wheelchair; F17.210 Nicotine dependence, cigarettes, uncomplicated | CPT/HCPCS: 99214 ==

== ENCOUNTER 2022-01-19 08:54 | Outpatient (CLI) | payer MEDICAID, SELFPAY ==
--- NOTE | 2022-01-19 09:04 | XRR_ITS ---
PROCEDURE INFORMATION: Exam: XR Abdomen Exam date and time: 01/19/2022 9:17 AM Age: 51 years old Clinical indication: Condition or disease; Kidney or ureter condition; Calculus (stone) in kidney; Prior surgery; Surgery type: --bladder, hystero, urostomy, colostomy; Additional info: N20.0 - calculus of kidney, kub@9:00 appt to follow TECHNIQUE: Imaging protocol: Radiologic exam of the abdomen. Views: Frontal supine view of the abdomen. 1 View. COMPARISON: CR XR KUB [id number] 07/09/2021 10:47 AM FINDINGS: Gastrointestinal tract: Significant distal colonic and rectal fecal burden. Intraperitoneal space: Surgical clips in the right upper quadrant. Organs: Bilateral renal stones again noted. Bones/joints: Unremarkable. XR/XR KUB [id number] IMPRESSION: Significant distal colonic and rectal fecal burden. Correlate with any clinical signs of constipation or fecal impaction.
== END 2022-01-19 08:55 | disposition home or self-care (01) ==
PROVIDERS: PCP Internal Medicine; Visit Provider Urology
DX: N20.0 Calculus of kidney (principal); Z98.890 Other specified postprocedural states
CPT/HCPCS: 74018; 99213

== ENCOUNTER → 2022-03-17 10:21 | Outpatient (BNVA) | payer MEDICAID, SELFPAY | PROVIDERS: PCP Internal Medicine; Visit Provider Specialist | DX: G35 Multiple sclerosis (principal); G40.309 Generalized idiopathic epilepsy and epileptic syndromes, not intractable, without status epilepticus; G40.209 Localization-related (focal) (partial) symptomatic epilepsy and epileptic syndromes with complex partial seizures, not intractable, without status epilepticus | CPT/HCPCS: 99214 ==

== ENCOUNTER → 2022-04-27 14:59 | Outpatient (BNVA) | payer MEDICAID, SELFPAY | PROVIDERS: PCP Internal Medicine; Visit Provider Thoracic Surgery (Cardiothoracic Vascular Surgery) | DX: L89.890 Pressure ulcer of other site, unstageable (principal) ==

== ENCOUNTER → 2022-05-05 10:24 | Outpatient (BNVA) | payer MEDICAID, SELFPAY | PROVIDERS: PCP Internal Medicine; Visit Provider Thoracic Surgery (Cardiothoracic Vascular Surgery) | DX: L89.890 Pressure ulcer of other site, unstageable (principal); G35 Multiple sclerosis; M62.40 Contracture of muscle, unspecified site ==

== ENCOUNTER 2022-05-12 18:16 | Inpatient (IN) | payer MEDICAID, SELFPAY ==
[2022-05-12 18:21] VITALS: BP 150/84; PULSE 118; RESP 19; TEMP 39.5; O2SAT 95; BMI 26.6
--- NOTE | 2022-05-12 18:22 | XRR_ITS ---
PROCEDURE INFORMATION: Exam: XR Chest Exam date and time: 05/12/2022 6:28 PM Age: 52 years old Clinical indication: Fever TECHNIQUE: Imaging protocol: Radiologic exam of the chest. Views: 1 view. COMPARISON: CR XR chest 1V portable [id number] 03/02/2021 6:25 AM FINDINGS: Lungs: Unremarkable. No consolidation. Pleural spaces: Unremarkable. No pleural effusion. No pneumothorax. Heart/Mediastinum: Unremarkable. No cardiomegaly. Bones/joints: No acute findings. XR/XR chest 1V portable [id number] IMPRESSION: No acute findings.
--- NOTE | 2022-05-12 18:34 | CTR_ITS ---
PROCEDURE INFORMATION: Exam: CT Abdomen And Pelvis Without Contrast Exam date and time: 05/12/2022 6:59 PM Age: 52 years old Clinical indication: Abdominal pain; Acute; Prior surgery; Surgery date: 6+ months; Surgery type: Urostomy, hysterectomy, gall bladder; Additional info: Abd pain TECHNIQUE: Imaging protocol: Computed tomography of the abdomen and pelvis without contrast. Radiation optimization: All CT scans at this facility use at least one of these dose optimization techniques: automated exposure control; mA and/or kV adjustment per patient size (includes targeted exams where dose is matched to clinical indication); or iterative reconstruction. COMPARISON: CT abdomen pelvis w con* [id number] 06/14/2021 8:42 PM RADIATION DOSE METRICS: Total DLP (mGy-cm): 775.41 FINDINGS: Liver: Normal. No mass. Gallbladder and bile ducts: Cholecystectomy. Pancreas: Normal. No ductal dilation. Spleen: Normal. No splenomegaly. Adrenal glands: Normal. No mass. Kidneys and ureters: Urostomy is in place at right abdomen. A small portion of colon protrudes into a peristomal hernia at the urostomy site. Bilateral renal calculi are again noted. Largest measures up to 1.4 cm greatest dimension. Collecting systems are unchanged in caliber. Stomach and bowel: Large rectosigmoid stool is suspicious for impaction. Appendix: No evidence of appendicitis. Intraperitoneal space: Unremarkable. No free air. No significant fluid collection. Vasculature: Minimal vascular calcifications are noted. No findings of abdominal aortic aneurysm. Lymph nodes: Unremarkable. No enlarged lymph nodes. Urinary bladder: Unremarkable as visualized. Reproductive: Unremarkable as visualized. Bones/joints: No acute fracture. Soft tissues: See Kidneys and ureters finding. CT/CT abdomen pelvis wo con [id number] IMPRESSION: Large rectosigmoid stool suspicious for impaction. Bilateral renal calculi. Urostomy in place with small peristomal hernia
--- NOTE | 2022-05-12 18:40 | W.ED.NAVMDI ---
HPI - Nausea/Vomiting/Diarrhea General: Chief complaint: Nausea/Vomiting/Diarrhea Stated complaint: Fever Time Seen by Provider: 05/12/22 18:17 Source: patient and EMS Mode of arrival: EMS Limitations: no limitations History of Present Illness: 52-year-old female who is [facility] she has a history of MS is bedbound has had a urostomy as well states she has had nausea vomiting along with some abdominal discomfort and fevers today at the [facility] her temp here is 103 states she gets feeling like this when she has a UTI she had no cough she rates her pain a 2 out of 10. Denies any worsening improving factors. Associated nausea: Yes Associated symtoms: Reports nausea; Denies chest pain, dysuria or headache(s) Review of Systems Const: Reports: fever(s) Eyes: Denies: blurry vision or eye discomfort ENMT: Denies: throat pain or dental pain Card: Denies: chest pain Resp: Denies: dyspnea GI: Reports: abdominal pain, nausea and vomiting : Denies: dysuria Musc: Denies: neck pain or back pain Skin/Breast: Denies: rash Neuro: Denies: headache(s) Psych: Denies: depression Chris/Lymph: Denies: easy bruising All/Imm: Denies: urticaria PFSH ED PFSH: Medical History Anemia Anxiety Cerebellar tremor Depression Depression, endogenous Gallstone pancreatitis GERD (gastroesophageal reflux disease) Hypertension Multiple sclerosis Onychodystrophy Plantar callus Seizure Staghorn renal calculus Struvite kidney stones Surgical History H/O cervical biopsy H/O: hysterectomy History of biopsy of bladder History of urostomy S/P ERCP Status post laparoscopic cholecystectomy (07/16/21) Family History Family/Other Cancer Hyperlipidemia Hypertension Denies family history of Diabetes CAD (coronary artery disease) Clotting disorder Dementia Psychiatric illness Chronic kidney disease (CKD) Suicide Anesthesia complication Bleeding disorder Family history of premature coronary artery disease Lung disease Stroke Social History Smoking and tobacco status: never smoked Alcohol intake: never Marital status: Current occupational status: retired and disabled History of recent travel: No Physical Exam Const: COMMON NORMALS: patient oriented x3 HENMT: COMMON NORMALS: normocephalic and atraumatic HEAD & SCALP: normocephalic and atraumatic Eye: COMMON NORMALS: Equal, round and reactive pupils present and EOMs intact bilaterally PUPIL: Yes Equal, round and reactive pupils present Neck/C-Spine: COMMON NORMALS: full ROM and supple Chest: COMMONS NORMALS: normal inspection of the chest and normal palpation of entire chest wall Resp: COMMON NORMALS: normal respiratory effort, No retractions, No use of accessory muscles and clear to auscultation bilaterally AUSCULTATION: clear to auscultation bilaterally Cardio: COMMON NORMALS: regular rate, regular rhythm and No murmurs present (Cardio) RATE: regular rate RHYTHM: regular rhythm GI: COMMON NORMALS: Normal to inspection, nondistended, normoactive bowel sounds present, Soft to palpation, non-tender and no masses PALPATION: Yes Soft to palpation OTHER: urostomy bag in place Extremity: COMMON NORMALS: normal to inspection and full ROM Neuro: COMMON NORMALS: patient oriented x3, moves all extremities and no focal motor deficits Psych: COMMON NORMALS: mental status grossly normal, Normal thought process present and cooperative THOUGHT PROCESS: Normal thought process present Skin: COMMON NORMALS: no rashes or lesions noted and no wounds GENERAL SKIN EXAM: no rashes or lesions noted Course Vital Signs: Vital signs: Vital Signs Temperature 103.1 F H 05/12/22 18:21 Pulse Rate 118 H 05/12/22 18:21 Respiratory Rate 16 05/12/22 18:44 Blood Pressure 150/84 05/12/22 18:21 Pulse Oximetry 97 05/12/22 18:44 Oxygen Delivery Me thod 05/12/22 18:21 MDM - Nausea/Vomiting/Diarrhea Medical Decision Making Patient presents here with a fever she does have a UTI as well with an elevated white count her blood pressure lactate are normal patient started IV antibiotics I spoke to the hospitalist will admit at this time. Lab Data 05/12/22 18:30 05/12/22 18:30 Radiology Impressions Chest X-Ray 05/12/22 18:22 IMPRESSION: No acute findings. Abdomen/Pelvis CT 05/12/22 18:34 IMPRESSION: Large rectosigmoid stool suspicious for impaction. Bilateral renal calculi. Urostomy in place with small peristomal hernia Laboratory Results WBC 22.6 10^3/uL (4.0-10.0) H 05/12/22 18:30 RBC 4.15 10^6/uL (4.1-5.3) 05/12/22 18:30 Hgb 12.7 g/dL (11.5-15.3) 05/12/22 18: Hct 40.4 % (37.0-47.0) 05/12/22 18:30 MCV 97.3 fl (81-99) 05/12/22 18: MCH 30.6 pg (28.0-34.0) 05/12/22 18: MCHC 31.4 g/dL (30.0-36.0) 05/12/22 18: RDW 12.5 % (12.1-15.1) 05/12/22 18: Plt Count 387 10^3/cmm (130-400) 05/12/22 18: MPV 9.4 fL (7.4-10.4) 05/12/22 18: Neut % (Auto) 91.0 % 05/12/22 18: Lymph % (Auto) 3.9 % 05/12/22 18: [place] % (Auto) 4.3 % 05/12/22 18: Eos % (Auto) 0.1 % 05/12/22 18: Baso % (Auto) 0.2 % 05/12/22 18: Neut # (Auto) 20.54 10^3/uL (1.8-7.7) H 05/12/22 18:30 Lymph # (Auto) 0.9 10^3/uL (0.8-4.8) 05/12/22 18:30 [place] # (Auto) 1.0 10^3/uL (0.2-0.9) H 05/12/22 18:30 Eos # (Auto) 0.0 10^3/uL (0.0-0.8) 05/12/22 18:30 Baso # (Auto) 0.0 10^3/uL (0.0-0.1) 05/12/22 18:30 Nucleated RBC % (auto) 0 % 05/12/22 18:30 Nucleated RBCs # 0.0 /100WBC 05/12/22 18:30 Sodium 136 mmol/L (136-145) 05/12/22 18:30 Potassium 4.0 mmol/L (3.5-5.1) 05/12/22 18:30 Chloride 105 mmol/L (98-107) 05/12/22 18:30 Carbon Dioxide 18 mmol/L (22-29) L 05/12/22 18:30 Anion Gap 17.0 (5-19) 05/12/22 18:30 BUN 13 mg/dL (6-20) 05/12/22 18:30 Creatinine 0.4 mg/dL (0.5-0.9) L 05/12/22 18:30 GFR Calculation 167.6 mL/min (90-130) H 05/12/22 18:30 Glucose 106 mg/dL (65-115) 05/12/22 18:30 Calculated Osmolality 283 mOsm/kg (285-295) L 05/12/22 18:30 Lactate 2.2 mmol/L (0.5-2.2) 05/12/22 18:30 Calcium 9.6 mg/dL (8.5-10.5) 05/12/22 18:30 Total Bilirubin 0.2 mg/dL (0.15-1.2) 05/12/22 18:30 AST 18 U/L (0-32) 05/12/22 18:30 ALT 13 U/L (0-33) 05/12/22 18:30 Alkaline Phosphatase 113 U/L (35-105) H 05/12/22 18:30 Total Protein 7.9 g/dL (6.6-8.7) 05/12/22 18:30 Albumin 4.1 g/dL (3.5-5.2) 05/12/22 18:30 Globulin 3.8 g/dL (1.3-4.6) 05/12/22 18:30 Lipase 44 U/L (13-60) 05/12/22 18:30 Urine Color Yellow (Yellow) 05/12/22 20:00 Urine Appearance Cloudy (CLEAR) A 05/12/22 20:00 Urine pH 7 (5-7) 05/12/22 20:00 Ur Specific [place] 1.005 (1.005-1.030) 05/12/22 20:00 Urine Protein Neg (Negative) 05/12/22 20:00 Urine Glucose (UA) Norm (Normal) 05/12/22 20:00 Urine Ketones Negative (Negative) 05/12/22 20:00 Urine Blood Neg (Negative) 05/12/22 20:00 Urine Nitrate Positive (Negative) H 05/12/22 20:00 Urine Bilirubin Neg (Negative) 05/12/22 20:00 Urine Urobilinogen Norm mg/dL (Negative) 05/12/22 20:00 Ur Leukocyte Esterase Negative (Negative) 05/12/22 20:00 Urine RBC 0-4 /hpf (0-2) H 05/12/22 20:00 Urine WBC 5-10 /hpf (0-5) H 05/12/22 20:00 Ur Squamous Epith Cells None /hpf (0-5) 05/12/22 20:00 Amorphous Sediment Not Reportable 05/12/22 20:00 Urine Bacteria 4+ /hpf (NONE) H 05/12/22 20:00 Discharge Plan Discharge Condition: Stable Prescriptions: No Action melatonin 5 mg tablet 5 mg PO BEDTIME@20 potassium chloride 20 mEq tablet extended release 20 meq PO BID@08,20 venlafaxine 150 mg capsule,extended release 24hr 150 mg PO DAILY@08 Qty: 30 5RF omeprazole 20 mg capsule,delayed release(DR/EC) 20 mg PO DAILY Betaseron 0.3 mg kit 0.25 mg SUBCUT polyethylene glycol 3350 [Miralax] 17 gram/dose powder 4 g PO DAILY fluticasone propion-salmeterol [Advair Diskus] 500-50 mcg/dose blister with device 1 inh inhalation BID levetiracetam [Keppra] 1,000 mg tablet 1,000 mg PO BID Lactobacillus acidophilus 1 billion cell capsule 1,000 mmu cells PO BID gabapentin 300 mg capsule 300 mg PO TID methenamine hippurate [Hiprex] 1 gram tablet 1 g PO BID baclofen 20 mg tablet 40 mg PO .hs magnesium hydroxide 400 mg/5 mL suspension 30 ml PO BID PRN lorazepam [Ativan] 1 mg tablet 1 mg PO DAILY PRN acetaminophen 650 mg tablet extended release 650 mg PO Q12H ketaconazole cream topical quetiapine [Seroquel] 100 mg tablet 100 mg PO BID guaifenesin 200 mg/5 mL liquid 200 mg PO Q4H PRN lacosamide [Vimpat] 200 mg tablet 200 mg PO BID 90 Days Qty: 180 1RF Rx Instructions: Take one tablet twice daily. albuterol sulfate [ProAir HFA] 90 mcg/actuation HFA aerosol inhaler 2 puff inhalation QID Rx Instructions: @08:00,12:00,16:00,20:00 loratadine 10 mg tablet 10 mg PO DAILY@08 Fleet Enema 19-7 gram/118 mL Enema 118 ml MD DAILY PRN (Reason: Constipation) Zofran 4 mg tablet 4 mg PO Q6H PRN (Reason: nausea and vomiting) Qty: 20 0RF Senna with Docusate Sodium 8.6-50 mg tablet 1 tab-cap PO BID Qty: 30 0RF Referrals: Tony Keys MD [Physician] - Coding Level of Care Code ED [employer] for Chg Fwd Exam Comprehensive
[2022-05-12 18:43] LABS: Basophils % 0.2 %; Eosinophils % 0.1 %; Hematocrit 40.4 % (37.0-47.0); Hemoglobin 12.7 g/dL (11.5-15.3); Lymphocytes # 0.9 10^3/uL (0.8-4.8); Lymphocytes % 3.9 %; Mean Corpuscular HGB Conc 31.4 g/dL (30.0-36.0); Mean Corpuscular Hemoglobin 30.6 pg (28.0-34.0); Mean Corpuscular Volume 97.3 fl (81-99); Mean Platelet Volume 9.4 fL (7.4-10.4); Monocytes % 4.3 %; Neutrophils # 20.54 10^3/uL (1.8-7.7); Nucleated Red Blood Cells % 0 %; Platelet Count 387 10^3/cmm (130-400); Red Blood Count 4.15 10^6/uL (4.1-5.3); Red Cell Distribution Width 12.5 % (12.1-15.1); White Blood Count 22.6 10^3/uL (4.0-10.0)
[2022-05-12 18:44] VITALS: RESP 16; O2SAT 97
[2022-05-12] MEDS: morphine 4 mg/mL SDV 1 mL IVP (18:44)
[2022-05-12] MEDS: ondansetron 2 mg/ML SDV 2 mL 4 MG IVP (18:44)
[2022-05-12] MEDS: sodium chloride 0.9% 1,000 ML 999 ML IV (18:44)
[2022-05-12] MEDS: acetaminophen 325 mg Tablet 650 MG PO (18:44)
[2022-05-12 19:00] LABS: Alanine Aminotransferase 13 U/L (0-33); Albumin Level 4.1 g/dL (3.5-5.2); Alkaline Phosphatase 113 U/L (35-105); Aspartate Amino Transferase 18 U/L (0-32); Blood Urea Nitrogen 13 mg/dL (6-20); Calcium 9.6 mg/dL (8.5-10.5); Carbon Dioxide 18 mmol/L (22-29); Chloride 105 mmol/L (98-107); Globulin 3.8 g/dL (1.3-4.6); Glomerular Filtration Rate 167.6 mL/min (90-130); Glucose 106 mg/dL (65-115); Lactate (Lactic Acid level) 2.2 mmol/L (0.5-2.2); Lipase 44 U/L (13-60); Osmolality Calculated 283 mOsm/kg (285-295); Sodium 136 mmol/L (136-145); Total Bilirubin 0.2 mg/dL (0.15-1.2); Total Protein 7.9 g/dL (6.6-8.7)
[2022-05-12 19:02] LABS: Creatinine Clr Calc Pharmacy 182.0435
[2022-05-12 20:00] VITALS: BP 144/85; PULSE 127; O2SAT 92
[2022-05-12 20:25] LABS: Protein Urine Neg (Negative); Specific Gravity, Urine 1.005 (1.005-1.030); Urine Appearance Cloudy (CLEAR); Urine Color Yellow (Yellow); pH Urine 7 (5-7)
[2022-05-12 20:26] LABS: Add Urine Culture? Yes; Add Urine Microscopic? YES; Bacteria Urine 4+ /hpf; Bilirubin Urine Neg (Negative); Blood Urine Neg (Negative); Glucose Urine UA Norm (Normal); Ketones Urine Negative (Negative); Leukocyte Esterase Urine Negative (Negative); Nitrate Urine Positive (Negative); RBC Urine 0-4 /hpf (0-2); Urobilinogen Urine Norm (Negative)
--- NOTE | 2022-05-12 20:55 | P.HP_ITS ---
Providers/Chief Complaint Chief Complaint: Fever History of Present Illness Teresa Moraes is a 52 year old female multiple medical history of multiple sclerosis, depression, anxiety, cerebellar tremor, depression, GERD, hypertension, seizures, staghorn renal calculus, struvite kidney stones, frequent UTIs, wound on plantar surface of foot [facility] for complaint of nausea vomiting along with abdominal discomfort. She has had a fever as high as 103. She states that she gets the symptoms when she has a UTI. Denies a cough, diarrhea or constipation otherwise. She says all of this started pretty much suddenly at 2 PM this afternoon after she had had lunch. She had scheduled potatoes and ham. She suspects that the food was not cooked properly and that is the cause of her nausea vomiting however she also feels she has a UTI. She says her urine is much darker and smells very foul. Sees Dr. Ley for her MS. Patient has urostomy in place. She is chronically bedbound. She recently saw Dr. Coulter at wound care clinic on 05 May for her lateral pressure wound related to contractures and positioning. Debridement was performed. Patient was recommended collagen with silver as primary product along with silicone bordered foam gauze dressing. Continue offloading maneuvers. Patient to follow-up again in 1 week. ER course: 150/84, respirations 16, pulse 118, temperature 103.1. Chest x-ray shows no acute findings. CT abdomen pelvis showed large rectosigmoid stool suspicious for impaction, bilateral renal calculi. Urostomy in place with small very stomal hernia. Medications/Allergies Home Medications Medication Instructions Recorded Confirmed Last Taken Type melatonin 5 mg tablet 5 mg PO BEDTIME@08/21/19 05/05/22 Unknown History albuterol sulfate 90 mcg/actuation 2 puff inhalation QID 03/02/21 05/05/22 07/16/21 08:00 History aerosol inhaler (ProAir HFA) loratadine 10 mg tablet 10 mg PO DAILY@08 03/02/21 05/05/22 07/16/21 08:00 History sodium phosphates 19 gram-7 118 ml DC DAILY PRN Constipation 03/02/21 05/05/22 Unknown History gram/118 mL enema (Fleet Enema) potassium chloride 20 mEq 20 meq PO BID@,20 04/20/21 05/05/22 07/16/21 08:00 History tablet,extended release venlafaxine 150 mg 150 mg PO DAILY@08 #30 caps 04/20/21 05/05/22 07/16/21 08:00 Rx capsule,extended release 24 hr ondansetron HCl 4 mg tablet 4 mg PO Q6H PRN nausea and 07/16/21 05/05/22 Unknown Rx (Zofran) vomiting #20 tabs sennosides 8.6 mg-docusate sodium 1 tab-cap PO BID constipation #30 07/16/21 05/05/22 Unknown Rx 50 mg tablet (Senna with Docusate tabs Sodium) guaifenesin 200 mg/5 mL oral liquid 200 mg PO Q4H PRN 09/16/21 05/05/22 Unknown History quetiapine 100 mg tablet (Seroquel) 100 mg PO BID 09/16/21 05/05/22 Unknown History Lactobacillus acidophilus 1 1,000 mmu cells PO BID 01/19/22 05/05/22 Unknown History billion cell capsule acetaminophen 650 mg 650 mg PO Q12H 01/19/22 05/05/22 Unknown History tablet,extended release baclofen 20 mg tablet 40 mg PO .hs 01/19/22 05/05/22 Unknown History fluticasone 500 mcg-salmeterol 50 1 inh inhalation BID 01/19/22 05/05/22 Unknown History mcg/dose blistr powdr for inhalation (Advair Diskus) gabapentin 300 mg capsule 300 mg PO TID 01/19/22 05/05/22 Unknown History interferon beta-1b 0.3 mg 0.25 mg SUBCUT 01/19/22 05/05/22 Unknown History subcutaneous kit (Betaseron) ketaconazole topical 01/19/22 05/05/22 Unknown History levetiracetam 1,000 mg tablet 1,000 mg PO BID 01/19/22 05/05/22 Unknown History (Keppra) lorazepam 1 mg tablet (Ativan) 1 mg PO DAILY PRN 01/19/22 05/05/22 Unknown History magnesium hydroxide 400 mg/5 mL 30 ml PO BID PRN 01/19/22 05/05/22 Unknown History oral suspension methenamine hippurate 1 gram 1 g PO BID 01/19/22 05/05/22 Unknown History tablet (Hiprex) omeprazole 20 mg capsule,delayed 20 mg PO DAILY 01/19/22 05/05/22 Unknown His tory release polyethylene glycol 3350 17 4 g PO DAILY 01/19/22 05/05/22 Unknown History gram/dose oral powder (Miralax) lacosamide 200 mg tablet (Vimpat) 200 mg PO BID 3 months #180 tabs 03/17/22 05/05/22 Unknown Rx Allergies Allergy/AdvReac Type Severity Reaction Status Date / Time latex Allergy ALGY-Rash Verified 05/05/22 14:56 PFSH Acute PFSH: Medical History Anemia Anxiety Cerebellar tremor Depression Depression, endogenous Gallstone pancreatitis GERD (gastroesophageal reflux disease) Hypertension Multiple sclerosis Onychodystrophy Plantar callus Seizure Staghorn renal calculus Struvite kidney stones Surgical History H/O cervical biopsy H/O: hysterectomy History of biopsy of bladder History of urostomy S/P ERCP Status post laparoscopic cholecystectomy (07/16/21) Family History Family/Other Cancer Hyperlipidemia Hypertension Denies family history of Diabetes CAD (coronary artery disease) Clotting disorder Dementia Psychiatric illness Chronic kidney disease (CKD) Suicide Anesthesia complication Bleeding disorder Family history of premature coronary artery disease Lung disease Stroke Social History Smoking and tobacco status: never smoked Alcohol intake: never Marital status: Current occupational status: retired and disabled History of recent travel: No Vitals/I&O/Wt Last Vital Signs Temp 103.1 F H 05/12/22 18:21 Pulse 118 H 05/12/22 18:21 Resp 16 05/12/22 18:44 BP 150/84 05/12/22 18:21 Pulse Ox 97 05/12/22 18:44 O2 Del Method 05/12/22 18:21 Weight last 48 hrs Weight 79.379 kg Physical Exam Narrative: General: Alert oriented x3, patient seen laying in bed. HEENT: Normocephalic, atraumatic, EOMI, breathing room air Cardio: Regular rate rhythm, normal S1-S2, Respiratory: Clear to auscultation bilaterally anterior lung nicholas and bases posteriorly. GI: Abdomen soft, nontender, mildly distended, bowel sounds +, no guarding or rebound tenderness. : Urostomy bag in place draining clear yellow urine. Extremities: Chronic contractures secondary to advancing MS. Right lateral foot wound covered with dressing. Data 05/12/22 18:30 05/12/22 18:30 Micro: Microbiology 05/12/22 19:23 Blood Culture - Preliminary Blood SPECIMEN COLLECTED 05/12/22 19:24 Blood Culture - Preliminary Blood SPECIMEN COLLECTED A&P Assessment and plan (1) History of urostomy: (2) GERD (gastroesophageal reflux disease): (3) Hypertension: (4) Depression: (5) Anxiety: (6) Seizure: (7) Multiple sclerosis: (8) Paraplegia: (9) Staghorn renal calculus: (10) UTI (urinary tract infection): (11) Constipation: (12) Depression: (13) Decubitus ulcer, heel, right, unstageable: (14) Generalized epilepsy: Plan #Fever secondary to UTI #Gastroenteritis #Chronic right lateral foot pressure injury #Nausea, mild abdominal pain most likely secondary to UTI #Constipation #Multiple sclerosis #History of seizures #History of depression, anxiety #History of frequent UTIs and kidney stones ? CT abdomen did not show any hydronephrosis ? UA abnormal with nitrates and leukocyte esterase ? Leukocytosis 22,000 most likely secondary to UTI versus other infection ? Large amount of stool in rectosigmoid area. We will start patient on bowel r egimen, lactulose ? Check blood cultures, urine culture ? Continue on IV fluids normal saline 100 cc/h ? We will place on Zosyn at this time ? Continue wound care with wound care recommendations over care clinic. Patient was recently seen. Continue collagen with silver along with silicone bordered foam gauze dressing. We will update RN ? Admit patient to medical surgical floor for ? Zofran for nausea ? Continue baclofen, gabapentin, Keppra, Ativan, methenamine hippurate, omeprazole, venlafaxine, quetiapine DVT prophylaxis: Heparin SQ twice daily Full code Clear liquid diet Attestations Medical Necessity Statement*: Anticipate greater than 2 midnight stay for management of UTI and fever requiring IV antibiotics. Coding Level of Care Code Acute Playground Director for Chg Fwd Diagnoses History of urostomy Z98.890 GERD (gastroesophageal reflux disease) K21.9 Hypertension I10 Depression F32.9 Anxiety F41.9 Seizure R56.9 Multiple sclerosis G35 Paraplegia G82.20 Staghorn renal calculus N20.0 UTI (urinary tract infection) N39.0 Constipation K59.00 Depression F32.A Decubitus ulcer, heel, right, unstageable L89.610 Generalized epilepsy G40.309
[2022-05-12 21:00] VITALS: BP 144/75; PULSE 127; O2SAT 91
[2022-05-12] MEDS: cefTRIAXone 1,000 MG in sodium chloride 0.9% (plus) 50 ML 100 MG IV (21:15)
[2022-05-12 21:17] LABS: Influenza A by IFA Negative (Negative); Influenza B by IFA Negative (Negative)
[2022-05-12 22:26] LABS: Procalcitonin 0.17 ng/mL (0-0.5); Thyroid Stimulating Hormone 0.89 uIU/mL (0.27-4.20)
[2022-05-12 22:56] VITALS: BP 134/98; PULSE 131; O2SAT 91
--- NOTE | 2022-05-12 23:33 | ECG_ITS ---
[facility] Test Date: 2022-05-13 Pat Name: Teresa Moraes Department: Room: 251 Gender: Female Marketing Rotation Associate: : 1970 Requested By: Tess Tay Order Number: [id number] Ishan MD: Simone Paul M.D. Measurements Intervals [place] Rate: 116 P: 60 MN: 168 QRS: -15 QRSD: 99 T: 40 QT: 366 QTc: 511 Interpretive Statements SINUS TACHYCARDIA NONSPECIFIC T-WAVE ABNORMALITY Compared to ECG 03/02/2021 12:20:14 Sinus rhythm no longer present Left-axis deviation no longer present Incomplete right bundle-branch block no longer present T-wave abnormality still present Electronically Signed On 05-13-2022 8:53:02 ORDER TAKER by Simone Paul M.D. [id number]
[2022-05-12 23:54] VITALS: BP 112/72; PULSE 128; RESP 16; TEMP 37.9; O2SAT 92
[2022-05-13] VITALS (9 sets, daily range): BP systolic 109–146; BP diastolic 66–81; PULSE 106–118; RESP 15–23; TEMP 36.4–39.3; O2SAT 92–96
[2022-05-13] MEDS: sodium chloride 0.9% 1,000 ML 125 ML IV ×3 (00:24→18:55)
[2022-05-13] MEDS: heparin 5,000 unit/mL INJ 1 mL 5000 UNIT SUBCUT ×3 (00:28→21:30)
[2022-05-13] MEDS: lactulose oral liq 20 gm/30 mL UDC PO ×3 (00:29→21:29)
[2022-05-13] MEDS: baclofen 10 mg Tablet 40 MG PO ×2 (00:32→21:29)
[2022-05-13] MEDS: piperacillin-tazobactam 3.375 GM in sodium chloride 0.9% (plus) 50 ML IV ×3 (00:58→23:00)
[2022-05-13] MEDS: ondansetron 2 mg/ML SDV 2 mL 4 MG IVP ×2 (02:55→10:53)
[2022-05-13 04:29] LABS: Basophils # 0.1 10^3/uL (0.0-0.1); Basophils % 0.3 %; Hematocrit 37.2 % (37.0-47.0); Lymphocytes # 1.2 10^3/uL (0.8-4.8); Lymphocytes % 4.3 %; Mean Corpuscular HGB Conc 32.3 g/dL (30.0-36.0); Mean Corpuscular Hemoglobin 31.2 pg (28.0-34.0); Mean Corpuscular Volume 96.6 fl (81-99); Mean Platelet Volume 9.6 fL (7.4-10.4); Monocytes # 0.3 10^3/uL (0.2-0.9); Monocytes % 1.3 %; Neutrophils # 24.99 10^3/uL (1.8-7.7); Neutrophils % 93.3 %; Nucleated Red Blood Cells % 0 %; Platelet Count 358 10^3/cmm (130-400); Red Blood Count 3.85 10^6/uL (4.1-5.3); Red Cell Distribution Width 12.8 % (12.1-15.1); White Blood Count 26.8 10^3/uL (4.0-10.0)
[2022-05-13 04:54] LABS: Alanine Aminotransferase 12 U/L (0-33); Albumin Level 3.8 g/dL (3.5-5.2); Alkaline Phosphatase 99 U/L (35-105); Anion Gap 16.4 (5-19); Aspartate Amino Transferase 18 U/L (0-32); Blood Urea Nitrogen 11 mg/dL (6-20); Calcium 8.4 mg/dL (8.5-10.5); Carbon Dioxide 18 mmol/L (22-29); Chloride 107 mmol/L (98-107); Globulin 3.9 g/dL (1.3-4.6); Glomerular Filtration Rate 167.6 mL/min (90-130); Glucose 91 mg/dL (65-115); Magnesium 1.8 mg/dL (1.7-2.3); Osmolality Calculated 285 mOsm/kg (285-295); Potassium 3.4 mmol/L (3.5-5.1); Sodium 138 mmol/L (136-145); Total Bilirubin 0.3 mg/dL (0.15-1.2); Total Protein 7.7 g/dL (6.6-8.7)
[2022-05-13 04:58] LABS: Creatinine Clr Calc Pharmacy 182.0435
[2022-05-13] MEDS: lacosamide 50 mg Tablet 200 MG PO ×2 (08:43→17:18)
[2022-05-13] MEDS: polyethylene glycol 3350 Pkt 17 gm PO (08:43)
[2022-05-13] MEDS: gabapentin 300 mg Capsule PO ×3 (08:44→21:29)
[2022-05-13] MEDS: venlafaxine ER (24HR) 150 mg Capsule PO (08:44)
[2022-05-13] MEDS: quetiapine 100 mg Tablet PO ×2 (08:44→17:19)
[2022-05-13] MEDS: levETIRAcetam 500 mg Tablet 1000 MG PO ×2 (08:44→17:19)
[2022-05-13] MEDS: pantoprazole DR 40 mg Tablet PO (08:44)
[2022-05-13] MEDS: sennosides-docusate Tablet 1 TAB PO ×2 (08:44→17:19)
--- NOTE | 2022-05-13 10:14 | PC.CHAP ---
Pastoral Care Encounter/Spiritual Assessment Type of Contact [] Declined receptionist scheduler visit [] Patient/Family/Request visit [] Outpatient visit [] Follow-up visit [] Physician referral [] Code/Alert [] Routine visit [] Staff referral [] Actively dying [] Patient sleeping [] Family support [] [] Out of room [] Palliative care [] [] Receiving care in room [] Pre-surgical visit [] Trauma [] Long length of stay [] ICU visit [x] Other: Fever Relational/Emotional Strength [] Patient feels connected with others/family/visitors/staff [] Distress [] Loneliness/isolation [] Abandonment Spirituality of Patient [] Person of Lorri [] Attends Restorationism of their Lorri [] Believes in Prayer [] Reads Bible or Denominational materials [] There are Spiritual issues to be addressed Rn Traveling Interventions [] Prayer [] Active listening [] Non-anxious presence [] Spiritual/emotional support [] Crisis/trauma care [] Spiritual counseling [] Bereavement support [] Provided bereavement packet [] Provided Bible/devotional materials [] Provided toy/stuffed animal, coloring book to patient or family member [] Provided Communion [] Anointing/Media [] Salvation [] Completed spiritual assessment [] Other: Impact on Illness or Injury [] Angry [] Fearful [] Anxious [] Often cries [] Exhaustion [] Unable to work [] Unable to attend quaker [] Unable to walk/stand [] Unable to read [] Unable to drive [] Unable to eat/drink [] Unable to sleep [] Unable to be with family [] Patient intubated [] Other: Summary Fever Time spent with patient 5 mins
--- NOTE | 2022-05-13 14:25 | P.PN_ITS ---
Subjective Subjective: Patient was seen and examined this morning she was complaining of nausea as well as vomiting. Overnight labs and vitals have been reviewed. Medications: Medication Review Details: Generic Name Dose Route Start Last Admin Trade Name Freq PRN Reason Stop Dose Admin Baclofen 40 mg 05/12/22 23:15 05/13/22 00:32 Baclofen 10 Mg T ablet PO 40 mg BEDTIME BIJAN Administration Gabapentin 300 mg 05/13/22 09:00 05/13/22 08:44 Gabapentin 300 M g Capsule PO 300 mg TID BIJAN Administration Heparin Sodium (Po rcine) 5,000 unit 05/12/22 21:15 05/13/22 08:47 Heparin 5,000 Un it/Ml Inj 1 Ml SUBCUT 5,000 unit Q12H BIJAN Administration Sodium Chloride 1,000 mls @ 125 m ls/hr 05/12/22 21:15 05/13/22 08:24 Sodium Chloride 0.9% IV 125 mls/hr .Q8H BIJAN Administration Piperacillin Sod/T azobactam 50 mls @ 12.5 mls /hr 05/13/22 00:45 05/13/22 08:21 Sod 3.375 gm/ So dium Chloride IV Infused Q8H BIJAN Infusion Lacosamide 200 mg 05/13/22 09:00 05/13/22 08:43 Lacosamide 50 Mg Tablet PO 200 mg BID BIJAN Administration Lactulose 20 gm 05/12/22 21:15 05/13/22 08:45 Lactulose Oral L iq 20 Gm/30 Ml Udc PO 20 gm Q12H BIJAN Administration Protocol Levetiracetam 1,000 mg 05/13/22 09:00 05/13/22 08:44 Levetiracetam 50 0 Mg Tablet PO 1,000 mg BID BIJAN Administration Non-Formulary Medi cation 1 gm 05/13/22 09:00 05/13/22 09:23 Methenamine Gertrude urate [Hiprex] PO Not Given BID BIJAN Ondansetron HCl 4 mg 05/12/22 21:04 05/13/22 10:53 Ondansetron 2 Mg /Ml Sdv 2 Ml IVP 4 mg Q8H PRN Administration vomiting, or N/V if npo Pantoprazole Sodiu m 40 mg 05/13/22 09:00 05/13/22 08:[address] 40 Mg Tablet PO 40 mg DAILY BIJAN Administration Polyethylene Glyco l 17 gm 05/13/22 09:00 05/13/22 08:43 Polyethylene Gly col 3350 Pkt 17 Gm PO 17 gm DAILY BIJAN Administration Quetiapine Fumarat e 100 mg 05/13/22 09:00 05/13/22 08:44 Quetiapine 100 M g Tablet PO 100 mg BID BIJAN Administration Senna/Docusate Sod ium 1 tab 05/13/22 09:00 05/13/22 08:44 Sennosides-Docus ate Tablet PO 1 tab BID BIJAN Administration Venlafaxine HCl 150 mg 05/13/22 08:00 05/13/22 08:44 Venlafaxine Er ( 24hr) 150 Mg Capsu le PO 150 mg DAILY@08 BIJAN Administration Vitals/I&O/Wt Last Vital Signs Temp 98.0 F 05/13/22 11:46 Pulse 110 H 05/13/22 11:46 Resp 15 05/13/22 11:46 BP 115/66 05/13/22 11:46 Pulse Ox 92 05/13/22 11:46 O2 Del Method 05/13/22 11:46 05/12/22 05/13/22 05/13/22 22:59 06:59 14:59 Intake Total 1050 / 1050 50 / 1100 1170 / 1170 Output Total 550 / 550 200 / 200 Balance 1050 / 1050 -500 / 550 970 / 970 Weight last 48 hrs Weight 79.379 kg Physical Exam Const: COMMON NORMALS: patient oriented x3 Resp: COMMON NORMALS: clear to auscultation bilaterally EFFORT & INSPECTION: Yes symmetric chest movement AUSCULTATION: clear to auscultation bilaterally Cardio: COMMON NORMALS: regular rate, regular rhythm, S1 normal heart sound present, S2 normal heart sound present, No gallops present (Cardio), No murmurs present (Cardio), No rub (Cardio) and Peripheral pulses 2+ throughout RATE: regular rate RHYTHM: regular rhythm HEART SOUNDS: S1 normal heart sound present and S2 normal heart sound present PERIPHERAL PULSES: Peripheral pulses 2+ throughout GI: COMMON NORMALS: Normal to inspection, nondistended, normoactive bowel sounds present, Soft to palpation, non-tender, No hepatosplenomegaly present and no masses AUSCULTATION: Yes normoactive bowel sounds PALPATION: Yes Soft to palpation and Yes No hepatosplenomegaly present RECTAL EXAM: deferred Extremity: COMMON NORMALS: no clubbing, cyanosis or edema and no pedal edema Neuro: COMMON NORMALS: patient oriented x3 Data 05/13/22 03:31 05/13/22 03:31 Micro: Microbiology 05/12/22 19:23 Blood Culture - Preliminary Blood SPECIMEN COLLECTED 05/12/22 19:24 Blood Culture - Preliminary Blood SPECIMEN COLLECTED A&P Assessment and plan (1) History of urostomy: (2) GERD (gastroesophageal reflux disease): (3) Hypertension: (4) Depression: (5) Anxiety: (6) Seizure: (7) Multiple sclerosis: (8) Paraplegia: (9) Staghorn renal calculus: (10) UTI (urinary tract infection): (11) Constipation: (12) Decubitus ulcer, heel, right, unstageable: (13) Generalized epilepsy: Plan 52-year-old female with past medical history of multiple sclerosis, anxiety depression cerebellar tremor, hypertension seizure disorder renal calculi, urostomy, frequent UTI was brought in with chief complaint of abdominal pain nausea vomiting, as well as fever. She is a group home resident. Currently she is being managed for: Assessment: Fever possibly secondary to UTI rule out other causes. Monitor patient for possible developing sepsis: Has leukocytosis, has tachycardia, febrile, currently lactic acid is normal, no signs of endorgan dysfunction.Fortunately she does not have altered mental status. UTI History of multiple sclerosis History of seizure disorder Bilateral renal calculi Hypertension: History of cerebellar tumor Hypokalemia Plan: CT abdomen and pelvis:Large rectosigmoid stool suspicious for impaction.Bilateral renal calculi. Urostomy in place with small peristomal hernia.No hydronephrosis. Urinalysis is positive for nitrite and leukocyte Estrace, 4+ bacteria, 5-10 WBC per high-power field X-ray chest: No acute findings. Blood culture: Urine culture Lactic acid: Normal Currently she is on Zosyn Continue IV hydration Continue wound care Continue baclofen, gabapentin, Keppra, Ativan, methenamine hippurate, omeprazole, venlafaxine, quetiapine DVT prophylaxis: Heparin SQ twice daily Full code Attestations Medical Necessity Statement*: Patient is still in hospital management of UTI. Time Spent in Patient Care: Greater than 35 minutes (>than 50% of time spent in counselling and/or direct pt care on unit) . Coding Level of Care Code Acute Ordnance Truck Installation Supervisor for Chg Fwd Exam Detailed Diagnoses History of urostomy Z98.890 GERD (gastroesophageal reflux disease) K21.9 Hypertension I10 Depression F32.9 Anxiety F41.9 Seizure R56.9 Multiple sclerosis G35 Paraplegia G82.20 Staghorn renal calculus N20.0 UTI (urinary tract infection) N39.0 Constipation K59.00 Decubitus ulcer, heel, right, unstageable L89.610 Generalized epilepsy G40.309
[2022-05-13] MEDS: potassium chloride ER 20 mEq Tablet 40 MEQ PO (15:55)
[2022-05-13] MEDS: acetaminophen 325 mg Tablet 650 MG PO (21:29)
[2022-05-13] MEDS: ibuprofen 200 mg Tablet 400 MG PO (22:57)
[2022-05-14] VITALS (9 sets, daily range): BP systolic 109–182; BP diastolic 56–98; PULSE 72–109; RESP 18–22; TEMP 36.4–38.6; O2SAT 93–96
[2022-05-14] MEDS: sodium chloride 0.9% 1,000 ML 125 ML IV (03:16)
[2022-05-14] MEDS: levETIRAcetam 500 mg Tablet 1000 MG PO ×2 (08:32→17:57)
[2022-05-14] MEDS: quetiapine 100 mg Tablet PO ×2 (08:32→17:57)
[2022-05-14] MEDS: gabapentin 300 mg Capsule PO ×3 (08:33→20:21)
[2022-05-14] MEDS: pantoprazole DR 40 mg Tablet PO (08:33)
[2022-05-14] MEDS: venlafaxine ER (24HR) 150 mg Capsule PO (08:33)
[2022-05-14] MEDS: lacosamide 50 mg Tablet 200 MG PO ×2 (08:33→18:01)
[2022-05-14] MEDS: meropenem 500 MG in sodium chloride 0.9% (plus) 50 ML 100 MG IV ×3 (09:27→23:33)
[2022-05-14] MEDS: enoxaparin 40 mg/0.4 mL Syringe SUBCUT (09:27)
[2022-05-14] MEDS: sodium chlor 0.9% + KCl 20 mEq 20 MEQ/1,000 ML BAG 100 MEQ IV ×2 (09:29→18:41)
--- NOTE | 2022-05-14 17:17 | PM.PN ---
Subjective Subjective: Patient was seen and examined this morning continued to have temperature spike, good thing is that her nausea and vomiting has stopped. Medications: Medication Review Details: Generic Name Dose Route Start Last Admin Trade Name Ina PRN Reason Stop Dose Admin Acetaminophen 650 mg 05/12/22 21:04 05/13/22 21:29 Acetaminophen 32 5 Mg Tablet PO 650 mg Q6H PRN Administration Mild/Mod Pain Or Temp >/= 101 Baclofen 40 mg 05/12/22 23:15 05/13/22 21:29 Baclofen 10 Mg T ablet PO 40 mg BEDTIME BIJAN Administration Enoxaparin Sodium 40 mg 05/14/22 08:30 05/14/22 09:27 Enoxaparin 40 Mg /0.4 Ml Syringe SUBCUT 40 mg Q24H BIJAN Administration Gabapentin 300 mg 05/13/22 09:00 05/14/22 08:33 Gabapentin 300 M g Capsule PO 300 mg TID BIJAN Administration Potassium Chloride /Sodium Chloride 20 meq in 1,000 m ls @ 100 mls/hr 05/14/22 08:30 05/14/22 09:29 Sodium Chlor 0.9 % + Kcl 20 Meq IV 100 mls/hr .Q10H BIJAN Administration Meropenem 500 mg/ Sodium 50 mls @ 100 mls/ hr 05/14/22 08:30 05/14/22 10:00 Chloride IV Infused Q8H BIJAN Infusion Ibuprofen 400 mg 05/12/22 21:04 05/13/22 22:57 Ibuprofen 200 Mg Tablet PO 400 mg Q8H PRN Administration mild/mod pain or temp >/= 101 Lacosamide 200 mg 05/13/22 09:00 05/14/22 08:33 Lacosamide 50 Mg Tablet PO 200 mg BID BIJAN Administration Lactulose 20 gm 05/12/22 21:15 05/14/22 11:31 Lactulose Oral L iq 20 Gm/30 Ml Udc PO Not Given Q12H BIJAN Protocol Levetiracetam 1,000 mg 05/13/22 09:00 05/14/22 08:32 Levetiracetam 50 0 Mg Tablet PO 1,000 mg BID BIJAN Administration Non-Formulary Medi cation 1 gm 05/13/22 09:00 05/14/22 08:34 Methenamine Gertrude urate [Hiprex] PO Not Given BID BIJAN Ondansetron HCl 4 mg 05/12/22 21:04 05/13/22 10:53 Ondansetron 2 Mg /Ml Sdv 2 Ml IVP 4 mg Q8H PRN Administration vomiting, or N/V if npo Pantoprazole Sodiu m 40 mg 05/13/22 09:00 05/14/22 08:[address] 40 Mg Tablet PO 40 mg DAILY BIJAN Administration Polyethylene Glyco l 17 gm 05/13/22 09:00 05/14/22 08:34 Polyethylene Gly col 3350 Pkt 17 Gm PO Not Given DAILY BIJAN Quetiapine Fumarat e 100 mg 05/13/22 09:00 05/14/22 08:32 Quetiapine 100 M g Tablet PO 100 mg BID BIJAN Administration Senna/Docusate Sod ium 1 tab 05/13/22 09:00 05/14/22 08:34 Sennosides-Docus ate Tablet PO Not Given BID BIJAN Venlafaxine HCl 150 mg 05/13/22 08:00 05/14/22 08:33 Venlafaxine Er ( 24hr) 150 Mg Capsu le PO 150 mg DAILY@08 BIJAN Administration Vitals/I&O/Wt Last Vital Signs Temp 97.6 F 05/14/22 12:00 Pulse 78 05/14/22 12:00 Resp 18 05/14/22 12:00 BP 109/64 05/14/22 12:00 Pulse Ox 94 05/14/22 12:00 O2 Del Method 05/14/22 12:00 05/14/22 05/14/22 05/14/22 06:59 14:59 22:59 Intake Total 1350.00 / 3930.00 1450 / 1450 Output Total 300 / 1550 Balance 1050.00 / 2380.00 1450 / 1450 Weight last 48 hrs Weight 79.379 kg Physical Exam Const: COMMON NORMALS: patient oriented x3 Resp: COMMON NORMALS: clear to auscultation bilaterally EFFORT & INSPECTION: Yes symmetric chest movement AUSCULTATION: clear to auscultation bilaterally Cardio: COMMON NORMALS: regular rate, regular rhythm, S1 normal heart sound present, S2 normal heart sound present, No gallops present (Cardio), No murmurs present (Cardio), No rub (Cardio) and Peripheral pulses 2+ throughout RATE: regular rate RHYTHM: regular rhythm HEART SOUNDS: S1 normal heart sound present and S2 normal heart sound present PERIPHERAL PULSES: Peripheral pulses 2+ throughout GI: COMMON NORMALS: Normal to inspection, nondistended, normoactive bowel sounds present, Soft to palpation, non-tender, No hepatosplenomegaly present and no masses AUSCULTATION: Yes normoactive bowel sounds PALPATION: Yes Soft to palpation and Yes No hepatosplenomegaly present RECTAL EXAM: deferred Extremity: COMMON NORMALS: no clubbing, cyanosis or edema and no pedal edema Neuro: COMMON NORMALS: patient oriented x3 Data 05/13/22 03:31 05/13/22 03:31 Micro: Microbiology 05/13/22 06:26 Gram Stain - Final Buttock Wound Culture - Preliminary 05/13/22 06:26 Gram Stain - Final Other Source Wound Culture - Preliminary Gram Negative Rods Gram Negative Rods#2 05/12/22 20:00 Urine Culture - Preliminary Urine,Clean Catch Gram Negative Rods 05/12/22 19:23 Blood Culture - Preliminary Blood NEGATIVE TO DATE 05/12/22 19:24 Blood Culture - Preliminary Blood NEGATIVE TO DATE A&P Assessment and plan (1) History of urostomy: (2) GERD (gastroesophageal reflux disease): (3) Hypertension: (4) Depression: (5) Anxiety: (6) Seizure: (7) Multiple sclerosis: (8) Paraplegia: (9) Staghorn renal calculus: (10) UTI (urinary tract infection): (11) Constipation: (12) Decubitus ulcer, heel, right, unstageable: (13) Generalized epilepsy: Plan 52-year-old female with past medical history of multiple sclerosis, anxiety depression cerebellar tremor, hypertension seizure disorder renal calculi, urostomy, frequent UTI was brought in with chief complaint of abdominal pain nausea vomiting, as well as fever. She is a correction resident. Currently she is being managed for: Assessment: Fever possibly secondary to UTI rule out other causes. Monitor patient for possible developing sepsis: Has leukocytosis, has tachycardia, febrile, currently lactic acid is normal, no signs of endorgan dysfunction.Fortunately she does not have altered mental status. UTI History of multiple sclerosis History of seizure disorder Bilateral renal calculi Hypertension: History of cerebellar tumor Hypokalemia Plan: CT abdomen and pelvis:Large rectosigmoid stool suspicious for impaction.Bilateral renal calculi. Urostomy in place with small peristomal hernia.No hydronephrosis. Urinalysis is positive for nitrite and leukocyte Estrace, 4+ bacteria, 5-10 WBC per high-power field X-ray chest: No acute findings. Blood culture: Urine culture Lactic acid: Normal Initially she was on Zosyn, given persistent spiking temperature, antibiotic coverage has been switched to meropenem. Continue IV hydration Continue wound care Continue baclofen, gabapentin, Keppra, Ativan, methenamine hippurate, omeprazole, venlafaxine, quetiapine DVT prophylaxis: Heparin SQ twice daily Full code Attestations Medical Necessity Statement*: Patient is to in hospital management of UTI. Time Spent in Patient Care: Greater than 35 minutes (>than 50% of time spent in counselling and/or direct pt care on unit). Coding Level of Care Code Acute Lip Cutter And Scorer for [facility] Fwd Exam Detailed Diagnoses History of urostomy Z98.890 GERD (gastroesophageal reflux disease) K21.9 Hypertension I10 Depression F32.9 Anxiety F41.9 Seizure R56.9 Multiple sclerosis G35 Paraplegia G82.20 Staghorn renal calculus N20.0 UTI (urinary tract infection) N39.0 Constipation K59.00 Decubitus ulcer, heel, right, unstageable L89.610 Generalized epilepsy G40.309
[2022-05-14] MEDS: baclofen 10 mg Tablet 40 MG PO (20:21)
[2022-05-14] MEDS: lactulose oral liq 20 gm/30 mL UDC PO (20:23)
[2022-05-14] MEDS: acetaminophen 325 mg Tablet 650 MG PO (23:32)
[2022-05-15 03:24] VITALS: BP 137/83; PULSE 102; RESP 18; TEMP 37.9; O2SAT 93
[2022-05-15 04:30] LABS: Basophils % 0.3 %; Eosinophils % 0.3 %; Hematocrit 33.2 % (37.0-47.0); Hemoglobin 10.4 g/dL (11.5-15.3); Lymphocytes # 2.2 10^3/uL (0.8-4.8); Lymphocytes % 18.7 %; Mean Corpuscular HGB Conc 31.3 g/dL (30.0-36.0); Mean Corpuscular Hemoglobin 30.7 pg (28.0-34.0); Mean Corpuscular Volume 97.9 fl (81-99); Mean Platelet Volume 9.6 fL (7.4-10.4); Monocytes # 0.6 10^3/uL (0.2-0.9); Monocytes % 5.2 %; Neutrophils # 8.94 10^3/uL (1.8-7.7); Neutrophils % 75.2 %; Nucleated Red Blood Cells % 0 %; Platelet Count 275 10^3/cmm (130-400); Red Blood Count 3.39 10^6/uL (4.1-5.3); White Blood Count 11.9 10^3/uL (4.0-10.0)
[2022-05-15] MEDS: sodium chlor 0.9% + KCl 20 mEq 20 MEQ/1,000 ML BAG 100 MEQ IV (04:34)
[2022-05-15 04:47] LABS: Alanine Aminotransferase 8 U/L (0-33); Albumin Level 2.9 g/dL (3.5-5.2); Alkaline Phosphatase 69 U/L (35-105); Anion Gap 13.5 (5-19); Aspartate Amino Transferase 16 U/L (0-32); Blood Urea Nitrogen 10 mg/dL (6-20); Calcium 7.7 mg/dL (8.5-10.5); Carbon Dioxide 15 mmol/L (22-29); Chloride 108 mmol/L (98-107); Globulin 3.4 g/dL (1.3-4.6); Glomerular Filtration Rate 233.6 mL/min (90-130); Glucose 88 mg/dL (65-115); Osmolality Calculated 274 mOsm/kg (285-295); Potassium 3.5 mmol/L (3.5-5.1); Sodium 133 mmol/L (136-145); Total Bilirubin 0.2 mg/dL (0.15-1.2); Total Protein 6.3 g/dL (6.6-8.7)
[2022-05-15 04:48] LABS: Creatinine Clr Calc Pharmacy 242.7246
[2022-05-15 07:39] VITALS: BP 153/89; PULSE 95; RESP 18; TEMP 37.2; O2SAT 93
[2022-05-15] MEDS: lacosamide 50 mg Tablet 200 MG PO ×2 (08:07→18:10)
[2022-05-15] MEDS: gabapentin 300 mg Capsule PO ×3 (08:07→20:12)
[2022-05-15] MEDS: lactulose oral liq 20 gm/30 mL UDC PO ×2 (08:07→20:15)
[2022-05-15] MEDS: meropenem 500 MG in sodium chloride 0.9% (plus) 50 ML 100 MG IV ×2 (08:08→16:06)
[2022-05-15] MEDS: pantoprazole DR 40 mg Tablet PO (08:08)
[2022-05-15] MEDS: quetiapine 100 mg Tablet PO ×2 (08:08→18:10)
[2022-05-15] MEDS: venlafaxine ER (24HR) 150 mg Capsule PO (08:08)
[2022-05-15] MEDS: levETIRAcetam 500 mg Tablet 1000 MG PO ×2 (08:08→18:10)
[2022-05-15] MEDS: enoxaparin 40 mg/0.4 mL Syringe SUBCUT (08:10)
[2022-05-15] MEDS: vancomycin 1,000 MG in sodium chloride 0.9% 250 ML 250 MG IV ×2 (12:23→20:05)
--- NOTE | 2022-05-15 15:41 | P.PN_ITS ---
Subjective Subjective: Patient was seen and examined this morning continued to have temperature spike, good thing is that it appears the temperature curve is going down.WBC is going down. She is tolerating diet well. Medications: Medication Review Details: Generic Name Dose Route Start Last Admin Trade Name Freq PRN Reason Stop Dose Admin Acetaminophen 650 mg 05/12/22 21:04 05/14/22 23:32 Acetaminophen 32 5 Mg Tablet PO 650 mg Q6H PRN Administration Mild/Mod Pain Or Temp >/= 101 Baclofen 40 mg 05/12/22 23:15 05/14/22 20:21 Baclofen 10 Mg T ablet PO 40 mg BEDTIME BIJAN Administration Enoxaparin Sodium 40 mg 05/14/22 08:30 05/15/22 08:10 Enoxaparin 40 Mg /0.4 Ml Syringe SUBCUT 40 mg Q24H BIJAN Administration Gabapentin 300 mg 05/13/22 09:00 05/15/22 08:07 Gabapentin 300 M g Capsule PO 300 mg TID BIJAN Administration Meropenem 500 mg/ Sodium 50 mls @ 100 mls/ hr 05/14/22 08:30 05/15/22 09:00 Chloride IV Infused Q8H BIJAN Infusion Vancomycin HCl 1,0 00 mg/ 250 mls @ 250 mls /hr 05/15/22 11:15 05/15/22 13:45 Sodium Chloride IV Infused Q8H BIJAN Infusion Protocol As Directed Ibuprofen 400 mg 05/12/22 21:04 05/13/22 22:57 Ibuprofen 200 Mg Tablet PO 400 mg Q8H PRN Administration mild/mod pain or temp >/= 101 Lacosamide 200 mg 05/13/22 09:00 05/15/22 08:07 Lacosamide 50 Mg Tablet PO 200 mg BID BIJAN Administration Lactulose 20 gm 05/12/22 21:15 05/15/22 08:07 Lactulose Oral L iq 20 Gm/30 Ml Udc PO 20 gm Q12H BIJAN Administration Protocol Levetiracetam 1,000 mg 05/13/22 09:00 05/15/22 08:08 Levetiracetam 50 0 Mg Tablet PO 1,000 mg BID BIJAN Administration Non-Formulary Medi cation 1 gm 05/13/22 09:00 05/15/22 08:10 Methenamine Gertrude urate [Hiprex] PO Not Given BID BIJAN Ondansetron HCl 4 mg 05/12/22 21:04 05/13/22 10:53 Ondansetron 2 Mg /Ml Sdv 2 Ml IVP 4 mg Q8H PRN Administration vomiting, or N/V if npo Pantoprazole Sodiu m 40 mg 05/13/22 09:00 05/15/22 08:[address] 40 Mg Tablet PO 40 mg DAILY BIJAN Administration Polyethylene Glyco l 17 gm 05/13/22 09:00 05/15/22 08:09 Polyethylene Gly col 3350 Pkt 17 Gm PO Not Given DAILY BIJAN Quetiapine Fumarat e 100 mg 05/13/22 09:00 05/15/22 08:08 Quetiapine 100 M g Tablet PO 100 mg BID [facility] Administration Senna/Docusate Sod ium 1 tab 05/13/22 09:00 05/15/22 08:09 Sennosides-Docus ate Tablet PO Not Given BID BIJAN Venlafaxine HCl 150 mg 05/13/22 08:00 05/15/22 08:08 Venlafaxine Er ( 24hr) 150 Mg Capsu le PO 150 mg DAILY@08 BIJAN Administration Vitals/I&O/Wt Last Vital Signs Temp 99.0 F 05/15/22 07:39 Pulse 95 05/15/22 07:39 Resp 18 05/15/22 07:39 BP 153/89 05/15/22 07:39 Pulse Ox 93 05/15/22 07:39 O2 Del Method 05/15/22 12:00 05/15/22 05/15/22 05/15/22 06:59 14:59 22:59 Intake Total 2757.333 / 4618.333 2019 Output Total 1225 / 1900 Balance 613.333 / 2718.333 2019 Physical Exam Const: COMMON NORMALS: patient oriented x3 Resp: COMMON NORMALS: clear to auscultation bilaterally EFFORT & INSPECTION: Yes symmetric chest movement AUSCULTATION: clear to auscultation bilaterally Cardio: COMMON NORMALS: regular rate, regular rhythm, S1 normal heart sound present, S2 normal heart sound present, No gallops present (Cardio), No murmurs present (Cardio), No rub (Cardio) and Peripheral pulses 2+ throughout RATE: regular rate RHYTHM: regular rhythm HEART SOUNDS: S1 normal heart sound present and S2 normal heart sound present PERIPHERAL PULSES: Peripheral pulses 2+ throughout GI: COMMON NORMALS: Normal to inspection, nondistended, normoactive bowel sounds present, Soft to palpation, non-tender, No hepatosplenomegaly present and no masses AUSCULTATION: Yes normoactive bowel sounds PALPATION: Yes Soft to palpation and Yes No hepatosplenomegaly present RECTAL EXAM: deferred Extremity: COMMON NORMALS: no clubbing, cyanosis or edema and no pedal edema Neuro: COMMON NORMALS: patient oriented x3 Data 05/15/22 04:10 05/15/22 04:10 Micro: Microbiology 05/13/22 06:26 Gram Stain - Final Buttock Wound Culture - Preliminary Coag positive Staphylococcus 05/13/22 06:26 Gram Stain - Final Other Source Wound Culture - Preliminary Gram Negative Rods Gram Negative Rods#2 05/12/22 20:00 Urine Culture - Preliminary Urine,Clean Catch Gram Negative Rods A&P Assessment and plan (1) History of urostomy: (2) GERD (gastroesophageal reflux disease): (3) Hypertension: (4) Depression: (5) Anxiety: (6) Seizure: (7) Multiple sclerosis: (8) Paraplegia: (9) Staghorn renal calculus: (10) UTI (urinary tract infection): (11) Constipation: (12) Decubitus ulcer, heel, right, unstageable: (13) Generalized epilepsy: Plan 52-year-old female with past medical history of multiple sclerosis, anxiety depression cerebellar tremor, hypertension seizure disorder renal calculi, urostomy, frequent UTI was brought in with chief complaint of abdominal pain nausea vomiting, as well as fever. She is a jail resident. Currently she is being managed for: Assessment: Fever possibly secondary to UTI rule out other causes. Monitor patient for possible developing sepsis: Has leukocytosis, has tachycardia, febrile, currently lactic acid is normal, no signs of endorgan dysfunction.Fortunately she does not have altered mental status. UTI History of multiple sclerosis History of seizure disorder Bilateral renal calculi Hypertension: History of cerebellar tumor Hypokalemia Plan: CT abdomen and pelvis:Large rectosigmoid stool suspicious for impaction.Bilateral renal calculi. Urostomy in place with small peristomal hernia.No hydronephrosis. Urinalysis is positive for nitrite and leukocyte Estrace, 4+ bacteria, 5-10 WBC per high-power field X-ray chest: No acute findings. Blood culture: Urine culture: GNR Wound culture: Gram-negative rods, Colace positive for staph Lactic acid: Normal Initially she was on Zosyn, given persistent spiking temperature, antibiotic coverage was switched to meropenem. Vancomycin has been added. Was on IV hydration Continue wound care Continue baclofen, gabapentin, Keppra, Ativan, methenamine hippurate, omeprazole, venlafaxine, quetiapine. Possible urology consult for: Bilateral renal calculi on Tuesday. DVT prophylaxis: On subcu Lovenox CODE STATUS full code Attestations Medical Necessity Statement*: Patient is to in hospital for management of UTI. Time Spent in Patient Care: Greater than 35 minutes (>than 50% of time spent in counselling and/or direct pt care on unit) . 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
[2022-05-15 16:00] VITALS: BP 151/83; PULSE 90; RESP 18; TEMP 37; O2SAT 94
[2022-05-15 20:00] VITALS: BP 135/78; PULSE 96; RESP 17; TEMP 36.9; O2SAT 96
[2022-05-15] MEDS: baclofen 10 mg Tablet 40 MG PO (20:11)
[2022-05-16] VITALS (7 sets, daily range): BP systolic 121–162; BP diastolic 76–89; PULSE 85–96; RESP 16–19; TEMP 36.8–38.2; O2SAT 95–98
[2022-05-16] MEDS: meropenem 500 MG in sodium chloride 0.9% (plus) 50 ML 100 MG IV ×3 (00:32→16:06)
[2022-05-16] MEDS: vancomycin 1,000 MG in sodium chloride 0.9% 250 ML 250 MG IV ×2 (02:53→10:45)
[2022-05-16 05:54] LABS: Basophils % 0.3 %; Eosinophils % 0.3 %; Hematocrit 33.8 % (37.0-47.0); Hemoglobin 10.8 g/dL (11.5-15.3); Lymphocytes # 1.5 10^3/uL (0.8-4.8); Lymphocytes % 13.5 %; Mean Corpuscular Hemoglobin 30.3 pg (28.0-34.0); Mean Corpuscular Volume 94.9 fl (81-99); Mean Platelet Volume 9.6 fL (7.4-10.4); Monocytes # 0.9 10^3/uL (0.2-0.9); Monocytes % 8.2 %; Neutrophils % 77.1 %; Nucleated Red Blood Cells % 0 %; Platelet Count 302 10^3/cmm (130-400); Red Blood Count 3.56 10^6/uL (4.1-5.3); Red Cell Distribution Width 12.8 % (12.1-15.1); White Blood Count 11.4 10^3/uL (4.0-10.0)
[2022-05-16 06:17] LABS: Alanine Aminotransferase 10 U/L (0-33); Alkaline Phosphatase 116 U/L (35-105); Anion Gap 14.3 (5-19); Aspartate Amino Transferase 14 U/L (0-32); Blood Urea Nitrogen 6 mg/dL (6-20); Calcium 8.3 mg/dL (8.5-10.5); Carbon Dioxide 17 mmol/L (22-29); Chloride 108 mmol/L (98-107); Creatinine Clr Calc Pharmacy 242.7246; Globulin 3.8 g/dL (1.3-4.6); Glomerular Filtration Rate 233.6 mL/min (90-130); Glucose 122 mg/dL (65-115); Osmolality Calculated 281 mOsm/kg (285-295); Potassium 3.3 mmol/L (3.5-5.1); Sodium 136 mmol/L (136-145); Total Bilirubin 0.3 mg/dL (0.15-1.2); Total Protein 6.8 g/dL (6.6-8.7)
--- NOTE | 2022-05-16 06:51 | PM.PN ---
Subjective Subjective: Patient was seen and examined this morning, fever curve is improving; noted maximum T-max overnight was 100.7, Medications: Medication Review Details: Generic Name Dose Route Start Last Admin Trade Name Freq PRN Reason Stop Dose Admin Acetaminophen 650 mg 05/12/22 21:04 05/14/22 23:32 Acetaminophen 32 5 Mg Tablet PO 650 mg Q6H PRN Administration Mild/Mod Pain Or Temp >/= 101 Baclofen 40 mg 05/12/22 23:15 05/15/22 20:11 Baclofen 10 Mg T ablet PO 40 mg BEDTIME BIJAN Administration Enoxaparin Sodium 40 mg 05/14/22 08:30 05/15/22 08:10 Enoxaparin 40 Mg /0.4 Ml Syringe SUBCUT 40 mg Q24H BIJAN Administration Gabapentin 300 mg 05/13/22 09:00 05/15/22 20:12 Gabapentin 300 M g Capsule PO 300 mg TID BIJAN Administration Meropenem 500 mg/ Sodium 50 mls @ 100 mls/ hr 05/14/22 08:30 05/16/22 01:21 Chloride IV Infused Q8H BIJAN Infusion Vancomycin HCl 1,0 00 mg/ 250 mls @ 250 mls /hr 05/15/22 11:15 05/16/22 04:44 Sodium Chloride IV Infused Q8H BIJAN Infusion Protocol As Directed Ibuprofen 400 mg 05/12/22 21:04 05/13/22 22:57 Ibuprofen 200 Mg Tablet PO 400 mg Q8H PRN Administration mild/mod pain or temp >/= 101 Lacosamide 200 mg 05/13/22 09:00 05/15/22 18:10 Lacosamide 50 Mg Tablet PO 200 mg BID BIJAN Administration Lactulose 20 gm 05/12/22 21:15 05/15/22 20:15 Lactulose Oral L iq 20 Gm/30 Ml Udc PO 20 gm Q12H BIJAN Administration Protocol Levetiracetam 1,000 mg 05/13/22 09:00 05/15/22 18:10 Levetiracetam 50 0 Mg Tablet PO 1,000 mg BID BIJAN Administration Non-Formulary Medi cation 1 gm 05/13/22 09:00 05/15/22 18:42 Methenamine Gertrude urate [Hiprex] PO Not Given BID BIJAN Ondansetron HCl 4 mg 05/12/22 21:04 05/13/22 10:53 Ondansetron 2 Mg /Ml Sdv 2 Ml IVP 4 mg Q8H PRN Administration vomiting, or N/V if npo Pantoprazole Sodiu m 40 mg 05/13/22 09:00 05/15/22 08:[address] 40 Mg Tablet PO 40 mg DAILY BIJAN Administration Polyethylene Glyco l 17 gm 05/13/22 09:00 05/15/22 08:09 Polyethylene Gly col 3350 Pkt 17 Gm PO Not Given DAILY BIJAN Quetiapine Fumarat e 100 mg 05/13/22 09:00 05/15/22 18:10 Quetiapine 100 M g Tablet PO 100 mg BID BIJAN Administration Senna/Docusate Sod ium 1 tab 05/13/22 09:00 05/15/22 18:42 Sennosides-Docus ate Tablet PO Not Given BID BIJAN Venlafaxine HCl 150 mg 05/13/22 08:00 05/15/22 08:08 Venlafaxine Er ( 24hr) 150 Mg Capsu le PO 150 mg DAILY@08 BIJAN Administration Vitals/I&O/Wt Last Vital Signs Temp 100.7 F H 05/16/22 04:00 Pulse 96 05/16/22 04:00 Resp 17 05/16/22 04:00 BP 162/89 05/16/22 04:00 Pulse Ox 96 05/16/22 04:00 O2 Del Method 05/15/22 16:00 05/15/22 05/15/22 05/16/22 14:59 22:59 06:59 Intake Total 2019 840 / 2860 300 / 3160 Output Total 350 / 350 450 / 800 Balance 2019 490 / 2510 -150 / 2360 Physical Exam Const: COMMON NORMALS: patient oriented x3 Resp: COMMON NORMALS: clear to auscultation bilaterally EFFORT & INSPECTION: Yes symmetric chest movement AUSCULTATION: clear to auscultation bilaterally Cardio: COMMON NORMALS: regular rate, regular rhythm, S1 normal heart sound present, S2 normal heart sound present, No gallops present (Cardio), No murmurs present (Cardio), No rub (Cardio) and Peripheral pulses 2+ throughout RATE: regular rate RHYTHM: regular rhythm HEART SOUNDS: S1 normal heart sound present and S2 normal heart sound present PERIPHERAL PULSES: Peripheral pulses 2+ throughout GI: COMMON NORMALS: Normal to inspection, nondistended, normoactive bowel sounds present, Soft to palpation, non-tender, No hepatosplenomegaly present and no masses AUSCULTATION: Yes normoactive bowel sounds PALPATION: Yes Soft to palpation and Yes No hepatosplenomegaly present RECTAL EXAM: deferred Extremity: COMMON NORMALS: no clubbing, cyanosis or edema and no pedal edema Neuro: COMMON NORMALS: patient oriented x3 Data 05/16/22 05:05 05/16/22 05:05 Micro: Microbiology 05/15/22 13:40 MRSA Culture - Final Nose 05/13/22 06:26 Gram Stain - Final Other Source Wound Culture - Final Pseudomonas aeruginosa Klebsiella pneumoniae 05/12/22 20:00 Urine Culture - Final Urine,Clean Catch Enterobacter cloacae 05/13/22 06:26 Gram Stain - Final Buttock Wound Culture - Preliminary Coag positive Staphylococcus A&P Assessment and plan (1) History of urostomy: (2) GERD (gastroesophageal reflux disease): (3) Hypertension: (4) Depression: (5) Anxiety: (6) Seizure: (7) Multiple sclerosis: (8) Paraplegia: (9) Staghorn renal calculus: (10) UTI (urinary tract infection): (11) Constipation: (12) Decubitus ulcer, heel, right, unstageable: (13) Generalized epilepsy: Plan 52-year-old female with past medical history of multiple sclerosis, anxiety depression cerebellar tremor, hypertension seizure disorder renal calculi, urostomy, frequent UTI was brought in with chief complaint of abdominal pain nausea vomiting, as well as fever. She is a halfway resident. Currently she is being managed for: Assessment: Fever possibly secondary to UTI rule out other causes. Monitor patient for possible developing sepsis: Has leukocytosis, has tachycardia, febrile, currently lactic acid is normal, no signs of endorgan dysfunction.Fortunately she does not have altered mental status. UTI History of multiple sclerosis History of seizure disorder Bilateral renal calculi Hypertension: History of cerebellar tumor Hypokalemia Plan: CT abdomen and pelvis:Large rectosigmoid stool suspicious for impaction.Bilateral renal calculi. Urostomy in place with small peristomal hernia.No hydronephrosis. Urinalysis is positive for nitrite and leukocyte Estrace, 4+ bacteria, 5-10 WBC per high-power field X-ray chest: No acute findings. Blood culture: NTD Urine culture: Enterobacter Colace Wound culture: Gram-negative rods, Colace positive for staph Lactic acid: Normal Initially she was on Zosyn, given persistent spiking temperature, antibiotic coverage was switched to meropenem. Vancomycin has been added. Was on IV hydration Continue wound care Continue baclofen, gabapentin, Keppra, Ativan, methenamine hippurate, omeprazole, venlafaxine, quetiapine. Possible urology consult for: Bilateral renal calculi on Tuesday.As a possible source If patient continues to spike temperature: She will need aggressive source investigation including and not limited to seth CT, 2D echo,VALENTINO, repeat blood culture.Possible ID consult. DVT prophylaxis: On subcu Lovenox CODE STATUS full code Attestations Medical Necessity Statement*: Patient is in hospital for management of UTI. Time Spent in Patient Care: Greater than 35 minutes (>than 50% of time spent in counselling and/or direct pt care on unit). Coding Level of Care Code Acute Radial Arm Saw Operator for [facility] Fwd Exam Detailed Diagnoses History of urostomy Z98.890 GERD (gastroesophageal reflux disease) K21.9 Hypertension I10 Depression F32.9 Anxiety F41.9 Seizure R56.9 Multiple sclerosis G35 Paraplegia G82.20 Staghorn renal calculus N20.0 UTI (urinary tract infection) N39.0 Constipation K59.00 Decubitus ulcer, heel, right, unstageable L89.610 Generalized epilepsy G40.309
[2022-05-16] MEDS: lacosamide 50 mg Tablet 200 MG PO ×2 (08:59→16:08)
[2022-05-16] MEDS: levETIRAcetam 500 mg Tablet 1000 MG PO ×2 (09:00→16:05)
[2022-05-16] MEDS: lactulose oral liq 20 gm/30 mL UDC PO ×2 (09:00→21:29)
[2022-05-16] MEDS: polyethylene glycol 3350 Pkt 17 gm PO (09:00)
[2022-05-16] MEDS: sennosides-docusate Tablet 1 TAB PO ×2 (09:00→16:05)
[2022-05-16] MEDS: pantoprazole DR 40 mg Tablet PO (09:00)
[2022-05-16] MEDS: venlafaxine ER (24HR) 150 mg Capsule PO (09:00)
[2022-05-16] MEDS: gabapentin 300 mg Capsule PO ×3 (09:00→21:30)
[2022-05-16] MEDS: quetiapine 100 mg Tablet PO ×2 (09:01→16:06)
[2022-05-16] MEDS: enoxaparin 40 mg/0.4 mL Syringe SUBCUT (09:09)
[2022-05-16 10:08] LABS: Vancomycin Trough 10.6 ug/mL (10-15)
[2022-05-16] MEDS: LORazepam 1 mg Tablet PO (16:05)
[2022-05-16] MEDS: baclofen 10 mg Tablet 40 MG PO (21:30)
[2022-05-16] MEDS: vancomycin 1,250 MG/250 ML PIGGYBACK 200 MG IV (21:31)
[2022-05-17] MEDS: meropenem 500 MG in sodium chloride 0.9% (plus) 50 ML 100 MG IV ×2 (00:48→08:02)
[2022-05-17 04:00] VITALS: BP 138/77; PULSE 67; RESP 16; TEMP 36.8; O2SAT 95
[2022-05-17] MEDS: vancomycin 1,250 MG/250 ML PIGGYBACK 200 MG IV ×3 (04:46→22:01)
[2022-05-17 05:13] LABS: Basophils # 0.1 10^3/uL (0.0-0.1); Basophils % 0.3 %; Eosinophils # 0.1 10^3/uL (0.0-0.8); Eosinophils % 0.5 %; Hematocrit 34.6 % (37.0-47.0); Hemoglobin 11.1 g/dL (11.5-15.3); Lymphocytes # 2.3 10^3/uL (0.8-4.8); Lymphocytes % 15.8 %; Mean Corpuscular HGB Conc 32.1 g/dL (30.0-36.0); Mean Corpuscular Hemoglobin 31.3 pg (28.0-34.0); Mean Corpuscular Volume 97.5 fl (81-99); Mean Platelet Volume 9.6 fL (7.4-10.4); Monocytes # 1.7 10^3/uL (0.2-0.9); Monocytes % 11.7 %; Neutrophils # 10.21 10^3/uL (1.8-7.7); Neutrophils % 70.9 %; Nucleated Red Blood Cells % 0 %; Platelet Count 324 10^3/cmm (130-400); Red Blood Count 3.55 10^6/uL (4.1-5.3); Red Cell Distribution Width 12.9 % (12.1-15.1); White Blood Count 14.4 10^3/uL (4.0-10.0)
[2022-05-17 05:35] LABS: Alanine Aminotransferase 9 U/L (0-33); Albumin Level 3.1 g/dL (3.5-5.2); Alkaline Phosphatase 76 U/L (35-105); Anion Gap 13.6 (5-19); Aspartate Amino Transferase 12 U/L (0-32); Blood Urea Nitrogen 7 mg/dL (6-20); Carbon Dioxide 20 mmol/L (22-29); Chloride 108 mmol/L (98-107); Globulin 3.9 g/dL (1.3-4.6); Glomerular Filtration Rate 233.6 mL/min (90-130); Glucose 93 mg/dL (65-115); Osmolality Calculated 284 mOsm/kg (285-295); Potassium 3.6 mmol/L (3.5-5.1); Sodium 138 mmol/L (136-145); Total Bilirubin 0.5 mg/dL (0.15-1.2)
[2022-05-17 05:36] LABS: Creatinine Clr Calc Pharmacy 242.7246
[2022-05-17 07:34] VITALS: BP 142/89; PULSE 86; RESP 16; TEMP 36.9; O2SAT 97
[2022-05-17] MEDS: polyethylene glycol 3350 Pkt 17 gm PO (08:02)
[2022-05-17] MEDS: lactulose oral liq 20 gm/30 mL UDC PO ×2 (08:02→22:01)
[2022-05-17] MEDS: gabapentin 300 mg Capsule PO ×3 (08:03→22:01)
[2022-05-17] MEDS: levETIRAcetam 500 mg Tablet 1000 MG PO ×2 (08:03→17:05)
[2022-05-17] MEDS: quetiapine 100 mg Tablet PO ×2 (08:03→17:05)
[2022-05-17] MEDS: venlafaxine ER (24HR) 150 mg Capsule PO (08:03)
[2022-05-17] MEDS: pantoprazole DR 40 mg Tablet PO (08:03)
[2022-05-17] MEDS: sennosides-docusate Tablet 1 TAB PO ×2 (08:03→17:05)
[2022-05-17] MEDS: enoxaparin 40 mg/0.4 mL Syringe SUBCUT (08:04)
[2022-05-17] MEDS: lacosamide 50 mg Tablet 200 MG PO ×2 (08:09→17:07)
[2022-05-17 11:56] VITALS: BP 136/88; PULSE 87; RESP 15; TEMP 37; O2SAT 93
[2022-05-17] MEDS: ondansetron 2 mg/ML SDV 2 mL 4 MG IVP ×2 (12:48→22:02)
--- NOTE | 2022-05-17 14:17 | USCV_ITS ---
Aleisha Teresa Age: 52 Gender: F : 1970 Exam Date: 05/17/2022 14:35 Ordering Phys: Kami Dave MD Technologist: MANDO Exam Location: [facility] – [place] Indication: Swelling and redness HISTORY: Lower extremity swelling. PROCEDURES: Venous duplex imaging was performed in bilateral lower extremities. The following venous structures were evaluated: common femoral vein, profunda vein, proximal portion of the greater saphenous vein, superficial femoral vein, and the popliteal vein. In addition, the posterior tibial and peroneal trunk were evaluated. Serial compression, augmentation maneuvers, and spectral Doppler flow evaluation were performed. FINDINGS: No evidence of DVT seen in any vessel visualized at this time. CONCLUSIONS No evidence of right lower extremity DVT. No evidence of left lower extremity DVT. Gwyn Larkin MD (Electronically Signed) Final Date: 17 May 2022 16:04 S
--- NOTE | 2022-05-17 14:18 | PM.PN ---
Subjective Subjective: continues to have intermittent fever, RLE is with patch red spots concerning for possible cellulitis. Persisting leukocytsosis. Medications: Reviewed: Yes Medication Review Details: Generic Name Dose Route Start Last Admin Trade Name Freq PRN Reason Stop Dose Admin Acetaminophen 650 mg 05/12/22 21:04 05/14/22 23:32 Acetaminophen 32 5 Mg Tablet PO 650 mg Q6H PRN Administration Mild/Mod Pain Or Temp >/= 101 Baclofen 40 mg 05/12/22 23:15 05/15/22 20:11 Baclofen 10 Mg T ablet PO 40 mg BEDTIME BIJAN Administration Enoxaparin Sodium 40 mg 05/14/22 08:30 05/15/22 08:10 Enoxaparin 40 Mg /0.4 Ml Syringe SUBCUT 40 mg Q24H BIJAN Administration Gabapentin 300 mg 05/13/22 09:00 05/15/22 20:12 Gabapentin 300 M g Capsule PO 300 mg TID BIJAN Administration Meropenem 500 mg/ Sodium 50 mls @ 100 mls/ hr 05/14/22 08:30 05/16/22 01:21 Chloride IV Infused Q8H BIJAN Infusion Vancomycin HCl 1,0 00 mg/ 250 mls @ 250 mls /hr 05/15/22 11:15 05/16/22 04:44 Sodium Chloride IV Infused Q8H BIJAN Infusion Protocol As Directed Ibuprofen 400 mg 05/12/22 21:04 05/13/22 22:57 Ibuprofen 200 Mg Tablet PO 400 mg Q8H PRN Administration mild/mod pain or temp >/= 101 Lacosamide 200 mg 05/13/22 09:00 05/15/22 18:10 Lacosamide 50 Mg Tablet PO 200 mg BID BIJAN Administration Lactulose 20 gm 05/12/22 21:15 05/15/22 20:15 Lactulose Oral L iq 20 Gm/30 Ml Udc PO 20 gm Q12H BIJAN Administration Protocol Levetiracetam 1,000 mg 05/13/22 09:00 05/15/22 18:10 Levetiracetam 50 0 Mg Tablet PO 1,000 mg BID BIJAN Administration Non-Formulary Medi cation 1 gm 05/13/22 09:00 05/15/22 18:42 Methenamine Gertrude urate [Hiprex] PO Not Given BID BIJAN Ondansetron HCl 4 mg 05/12/22 21:04 05/13/22 10:53 Ondansetron 2 Mg /Ml Sdv 2 Ml IVP 4 mg Q8H PRN Administration vomiting, or N/V if npo Pantoprazole Sodiu m 40 mg 05/13/22 09:00 05/15/22 08:[address] 40 Mg Tablet PO 40 mg DAILY BIJAN Administration Polyethylene Glyco l 17 gm 05/13/22 09:00 05/15/22 08:09 Polyethylene Gly col 3350 Pkt 17 Gm PO Not Given DAILY BIJAN Quetiapine Fumarat e 100 mg 05/13/22 09:00 05/15/22 18:10 Quetiapine 100 M g Tablet PO 100 mg BID BIJAN Administration Senna/Docusate Sod ium 1 tab 05/13/22 09:00 05/15/22 18:42 Sennosides-Docus ate Tablet PO Not Given BID BIJAN Venlafaxine HCl 150 mg 05/13/22 08:00 05/15/22 08:08 Venlafaxine Er ( 24hr) 150 Mg Capsu le PO 150 mg DAILY@08 BIJAN Administration Vitals/I&O/Wt Last Vital Signs Temp 98.6 F 05/17/22 11:56 Pulse 87 05/17/22 11:56 Resp 15 05/17/22 11:56 BP 136/88 05/17/22 11:56 Pulse Ox 93 05/17/22 11:56 O2 Del Method 05/17/22 11:56 05/16/22 05/17/22 05/17/22 22:59 06:59 14:59 Intake Total 290 / 1230 300 / 1530 910 / 910 Output Total 500 / 1200 1025 / 2225 275 / 275 Balance -210 / 30 -725 / -695 635 / 635 Physical Exam Narrative: General: No acute distress, AO x3 HEENT: PERRLA, pupils bilaterally equal and reactive, pallors not present Chest: Normal vesicular breath sounds, no added sounds, equal good air entry bilaterally CVS: S1-S2 regular, no murmurs, no tachycardia, no gallops, no rubs Abdomen: Soft, nontender, no organomegaly, bowel sounds present, urine stoma in place Data 05/17/22 04:31 05/17/22 04:31 Micro: Microbiology 05/17/22 04:35 Blood Culture - Preliminary Blood SPECIMEN COLLECTED 05/17/22 04:31 Blood Culture - Preliminary Blood SPECIMEN COLLECTED 05/13/22 06:26 Gram Stain - Final Buttock Wound Culture - Final Corynebacterium species A&P Assessment and plan (1) History of urostomy: (2) GERD (gastroesophageal reflux disease): (3) Hypertension: (4) Depression: (5) Anxiety: (6) Seizure: (7) Multiple sclerosis: (8) Paraplegia: (9) Staghorn renal calculus: (10) UTI (urinary tract infection): (11) Constipation: (12) Decubitus ulcer, heel, right, unstageable: (13) Generalized epilepsy: Plan 52-year-old female with past medical history of multiple sclerosis, anxiety depression cerebellar tremor, hypertension seizure disorder renal calculi, urostomy ?? reason, frequent UTI was brought in with chief complaint of abdominal pain nausea vomiting, as well as fever. She is a long-term resident. Currently she is being managed for: Assessment: Fever possibly secondary to UTI vs cellulitis Monitor patient for possible developing sepsis: Has leukocytosis, has tachycardia, febrile, currently lactic acid is normal, no signs of endorgan dysfunction.Fortunately she does not have altered mental status. UTI History of multiple sclerosis History of seizure disorder Bilateral renal calculi Hypertension: History of cerebellar tumor Hypokalemia Plan: CT abdomen and pelvis:Large rectosigmoid stool suspicious for impaction.Bilateral renal calculi. Urostomy in place with small peristomal hernia.No hydronephrosis. Urinalysis is positive for nitrite and leukocyte Estrace, 4+ bacteria, 5-10 WBC per high-power field X-ray chest: No acute findings. Blood culture: NTD , pending from today Urine culture: Enterobacter Colace polymicrobial wound cx for psueodmonas, klebsiella though uncertain if this is foot or sacrum. She has stage 1 pressure injury over sacrum, right foot has a pressure ulcer with optifoam in place. Noted to have patch red patches over RLE today. Concernf or cellulitis. Optimize meropenem dosing to psedomonal dosing at meropenem 2g iv q8h from 500mg iv q8h. Continue baclofen, gabapentin, Keppra, Ativan, omeprazole, venlafaxine, quetiapine. D/c methanamine Repeat CT abdomen given persisting vomiting today. DVT prophylaxis: On subcu Lovenox CODE STATUS full code Plan for today: optimize meropenem dosing, can continue vanc for now, check LE duplex given changes over RLE. Repeat CT abdomen giving persistent vomiting. 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
[2022-05-17 15:41] VITALS: BP 139/89; PULSE 92; RESP 16; TEMP 36.8; O2SAT 93
[2022-05-17] MEDS: meropenem 2,000 MG in sodium chloride 0.9% (100 ml) 100 ML 200 MG IV (16:51)
[2022-05-17] MEDS: metoclopramide 5 mg/mL SDV 2 mL IVP (17:05)
--- NOTE | 2022-05-17 18:38 | CTR_ITS ---
PROCEDURE INFORMATION: Exam: CT Abdomen And Pelvis Without And With Contrast Exam date and time: 05/17/2022 9:40 PM Age: 52 years old Clinical indication: Nausea and vomiting; Prior surgery; Surgery date: 6+ months; Surgery type: Urostomy, bladder. Hysterectomy, gall bladder; Additional info: Persistant nausea and fevers, lower leg edema TECHNIQUE: Imaging protocol: Computed tomography of the abdomen and pelvis without and with contrast. Radiation optimization: All CT scans at this facility use at least one of these dose optimization techniques: automated exposure control; mA and/or kV adjustment per patient size (includes targeted exams where dose is matched to clinical indication); or iterative reconstruction. Contrast material: OMNIPAQUE 350; Contrast volume: 95 ml; Contrast route: INTRAVENOUS (IV); COMPARISON: CT abdomen pelvis wo con [id number] 05/12/2022 6:59 PM RADIATION DOSE METRICS: Total DLP (mGy-cm): 1728.86 FINDINGS: Pleural spaces: Small eggf-aggdzqu-gmep-right pleural effusions with adjacent bilateral lower lobe consolidation, new since previous. Liver: Normal. No mass. Gallbladder and bile ducts: Stable cholecystectomy. Pancreas: Normal. No ductal dilation. Spleen: Normal. No splenomegaly. Adrenal glands: Normal. No mass. Kidneys and ureters: Mild right-sided hydroureteronephrosis is unchanged. Bilateral bulky nonobstructing nephroliths measuring up to 1.4 cm are unchanged. Stomach and bowel: Marked rectal fecal distention, again suspicious for impaction. The colon also contains a large amount of stool, consistent with constipation. New fluid distension of the mid to distal small bowel with numerous air-fluid levels. The transition point is located on series 5, image 50. There is swirling of the mesentery in this region, located just posterior to a pre-existing small bowel anastomosis, suspicious for an internal hernia. Right lower quadrant ileostomy is unchanged. Small portion of the colon again extends into the peristomal hernia sac, unchanged. Appendix: No evidence of appendicitis. Intraperitoneal space: See Stomach and bowel finding. Vasculature: Unremarkable. No abdominal aortic aneurysm. Lymph nodes: Unremarkable. No enlarged lymph nodes. Urinary bladder: Unremarkable as visualized. Reproductive: Unremarkable as visualized. Bones/joints: Subacute appearing inferior left-sided rib fractures are again identified. Soft tissues: See Stomach and bowel finding. CT/CT abdomen wo/w con [id number] IMPRESSION: 1. New small-bowel obstruction with transition point in the right anterior hemiabdomen, just posterior to a small bowel anastomosis. There are findings suspicious for an internal hernia at the transition site. Recommend clinical correlation and surgical consultation. 2. Stable findings suspicious for rectal fecal impaction with underlying marked constipation. 3. Small avbq-fotibwe-gbxq-right pleural effusions with adjacent bilateral lower lobe consolidation, new since previous. Correlate for pneumonia. 4. Stable bilateral renal calculi. Stable urostomy with stable small peristomal hernia.
[2022-05-17 20:00] VITALS: BP 171/95; PULSE 103; RESP 18; TEMP 37.1; O2SAT 94
[2022-05-17] MEDS: iohexol 350 mg/mL 500 mL Btl (per mL) IV (21:50)
[2022-05-17] MEDS: baclofen 10 mg Tablet 40 MG PO (22:01)
[2022-05-18] VITALS: BP 128/73; PULSE 88; RESP 17; TEMP 37; O2SAT 93
[2022-05-18] MEDS: meropenem 2,000 MG in sodium chloride 0.9% (100 ml) 100 ML 200 MG IV ×2 (01:01→13:20)
[2022-05-18 03:03] LABS: Hematocrit 36.5 % (37.0-47.0); Hemoglobin 11.8 g/dL (11.5-15.3); Mean Corpuscular HGB Conc 32.3 g/dL (30.0-36.0); Mean Corpuscular Hemoglobin 30.9 pg (28.0-34.0); Mean Corpuscular Volume 95.5 fl (81-99); Mean Platelet Volume 9.6 fL (7.4-10.4); Platelet Count 438 10^3/cmm (130-400); Red Blood Count 3.82 10^6/uL (4.1-5.3); White Blood Count 17.6 10^3/uL (4.0-10.0)
[2022-05-18 03:26] LABS: Anion Gap 20.3 (5-19); Blood Urea Nitrogen 10 mg/dL (6-20); Carbon Dioxide 18 mmol/L (22-29); Chloride 107 mmol/L (98-107); Glomerular Filtration Rate 233.6 mL/min (90-130); Glucose 99 mg/dL (65-115); Lactate (Lactic Acid level) 0.7 mmol/L (0.5-2.2); Osmolality Calculated 293 mOsm/kg (285-295); Potassium 3.3 mmol/L (3.5-5.1); Sodium 142 mmol/L (136-145)
[2022-05-18 03:30] LABS: Creatinine Clr Calc Pharmacy 242.7246
[2022-05-18 03:35] LABS: Vancomycin Trough 26.1 ug/mL (10-15)
--- NOTE | 2022-05-18 03:40 | PC.NURSE ---
Pt vancomycin trough 26.1, notified Dr. Hebert via phone, Dr. hebert said change order to pharmacy to dose vancomycin and to hold vancomycin.
[2022-05-18 04:00] VITALS: BP 133/86; PULSE 97; RESP 18; TEMP 36.7; O2SAT 93
[2022-05-18 04:11] LABS: Absolute Segmented Neutrophil 12.8 10/cmm (1.6-7.1); Eosinophils 0 %; Lymphocytes 13 %; Lymphocytes Absolute 3.2 10^3/cmm (1.2-3.4); Monocytes Absolute 1.6 10^3/cmm (0.1-0.6); Segmented Neutrophils 73 %; Total Cells Counted 100 (0-100)
[2022-05-18 04:45] LABS: Absolute Neutrophil 12.8 10^3/cmm (1.4-6.5); Platelet Estimate Increased (Normal)
--- NOTE | 2022-05-18 05:51 | PC.PHAR ---
Pharmacokinetic dosing service Date: 05/18/22 Time: 529 Patient: Teresa Moraes Floor: 251-1 Weight: 79.379 Kilograms Vancomycin single level analysis: Current dose being given: mg Current dosing interval: hrs Current infusion time (hrs): 1 Single level Trough Data: Trough level obtained: 26.1 mcg/ml Timing of trough - # of hrs before next dose: 2.25 Hrs Desired peak: 40 mcg/ml Desired trough: 15 mcg/ml Diagnosis: Relevant medical/social history: Cultures and sensitivities: Other labs: Estimated PK Parameters: New rate constant (bryce): 0.089 hr-1 Half-life: 7.79 Hours Vd from levels: 71.44 Liters (0.7 L/kg) CLvanco=?? 6.358 L/hr Estimated New Dose and Interval Recommended dose: 1960.2 mg Recommended interval: 12.0 Hrs Patient response: Patient is responding to treatment [yes/no] wbc decreasing, S/SX reduced [yes/no] Renal function is stable/unstable Recommendations: Give Vancomycin 1250 mg q 12 hrs. Infuse over 1 hrs Expected Cpeak: 25.5 mcg/mL Expected Ctrough: 9.6 mcg/mL AUC 0-24 /KARLA Data: KARLA 0.5 mcg/mL:?? AUC/KARLA:? 786.4 KARLA 1.0 mcg/mL:?? AUC/KARLA:? 393.2 Recommended labs and intervals: Measure Bun and Scr 3 times/week. Renal dosing of other antibiotics (review renal dosing of other medications and list guidelines here): Thank you for the consult, will continue to follow. Signature: Cadence Rivera [facility]
[2022-05-18 07:35] VITALS: BP 137/87; PULSE 91; RESP 15; TEMP 36.8; O2SAT 95
--- NOTE | 2022-05-18 07:37 | P.CONIM_ITS ---
Providers/Reason For Consult Consulting Physician/Specialty*: Bathroom Trae Presley DO/General surgery Reason for Consult*: Small bowel obstruction Attending Physician: Kami Dave MD History of Present Illness History of Present Illness Teresa Moraes is a 52 year old female, who has MS and paraplegia along with a past medical history as below, who presented to the hospital with fever nausea and vomiting. Medicine asked me to see the patient due to CT findings of a small bowel obstruction with transition point. Patient reports that she not having any abdominal pain since the NG tube 1 AM. She had a very large solid oma wel movement this morning and last night. She reports that she still nauseous. She has a stage I sacral decubitus ulcer and a stage IV decubitus ulcer of her right foot that is being treated by wound care. She has a urostomy in place and a small bowel anastomosis seen on CT, which is the site of the transition point. She also has a large amount of stool in her rectum and sigmoid colon by CT. Review of Systems General: Reports: 10 or more systems reviewed and unremarkable except in HPI and below Medications/Allergies Home Medications Medication Instructions Recorded Confirmed Last Taken Type melatonin 5 mg tablet 5 mg PO BEDTIME@20 08/21/19 05/13/22 Unknown History albuterol sulfate 90 mcg/actuation 2 puff inhalation QID 03/02/21 05/13/22 07/16/21 08:00 History aerosol inhaler (ProAir HFA) loratadine 10 mg tablet 10 mg PO DAILY@08 03/02/21 05/13/22 07/16/21 08:00 History sodium phosphates 19 gram-7 118 ml CA DAILY PRN Constipation 03/02/21 05/13/22 Unknown History gram/118 mL enema (Fleet Enema) potassium chloride 20 mEq 20 meq PO BID@08,17 04/20/21 05/13/22 07/16/21 08:00 History tablet,extended release sennosides 8.6 mg-docusate sodium 1 tab-cap PO BID constipation #30 07/16/21 05/13/22 Unknown Rx 50 mg tablet (Senna with Docusate tabs Sodium) guaifenesin 200 mg/5 mL oral liquid 150 mg PO Q4H PRN Cough 09/16/21 05/13/22 Unknown History Lactobacillus acidophilus 1 1,000 mmu cells PO BID 01/19/22 05/13/22 Unknown History billion cell capsule acetaminophen 650 mg 650 mg PO Q6H PRN pain 01/19/22 05/13/22 Unknown History tablet,extended release fluticasone 500 mcg-salmeterol 50 1 inh inhalation BID 01/19/22 05/13/22 Unknown History mcg/dose blistr powdr for inhalation (Advair Diskus) gabapentin 300 mg capsule 300 mg PO TID 01/19/22 05/13/22 Unknown History levetiracetam 1,000 mg tablet 1,000 mg PO BID 01/19/22 05/13/22 Unknown History (Keppra) magnesium hydroxide 400 mg/5 mL 30 ml PO BID PRN Unknown 01/19/22 05/13/22 Unknown History oral suspension polyethylene glycol 3350 17 4 g PO DAILY 01/19/22 05/13/22 Unknown History gram/dose oral powder (Miralax) interferon beta-1b 0.3 mg 0.25 mg SUBCUT Q48H 05/12/22 05/13/22 Unknown History subcutaneous kit (Betaseron) omeprazole 20 mg capsule,delayed 20 mg PO DAILY 05/12/22 05/13/22 Unknown History release baclofen 20 mg tablet 20 mg PO TID 05/13/22 05/13/22 Unknown History ketoconazole 2 % shampoo 1 applic topical Q14D 05/13/22 05/13/22 Unknown History ketoconazole 2 % topical cream 1 applic topical DAILY 05/13/22 05/13/22 Unknown History lacosamide 200 mg tablet (Vimpat) 200 mg PO BID 05/13/22 05/13/22 Unknown History melatonin 5 mg tablet 5 mg PO BEDTIME 05/13/22 05/13/22 Unknown History methenamine hippurate 1 gram 1 g PO QID 05/13/22 05/13/22 Unknown History tablet (Hiprex) sennosides 8.6 mg tablet (Senokot) 8.6 mg PO BID 05/13/22 05/13/22 Unknown History simethicone 80 mg chewable tablet 80 mg PO QID PRN Gastrointestinal 05/13/22 05/13/22 Unknown History Spasms Or Cramping sodium chloride 0.65 % nasal spray 1 spray intranasal BID PRN 05/13/22 05/13/22 Unknown History aerosol ([place] Saline) Congestion venlafaxine 150 mg 150 mg PO DAILY 05/13/22 05/13/22 Unknown History capsule,extended release 24 hr (Effexor XR) Allergies Allergy/AdvReac Type Severity Reaction Status Date / Time latex Allergy ALGY-Rash Verified 05/13/22 09:38 Current Medications Generic Name Dose Route Start Last Admin Trade Name Freq PRN Reason Stop Dose Admin Acetaminophen 650 mg 05/12/22 21:04 05/14/22 23:32 Acetaminophen 325 Mg Tablet PO 650 mg Q6H PRN Administration Mild/Mod Pain Or Temp >/= 101 Baclofen 40 mg 05/12/22 23:15 05/17/22 22:01 Baclofen 10 Mg Tablet PO 40 mg BEDTIME BIJAN Administration Enoxaparin Sodium 40 mg 05/14/22 08:30 05/17/22 08:04 Enoxaparin 40 Mg/0.4 Ml Syringe SUBCUT 40 mg Q24H BIJAN Administration Gabapentin 300 mg 05/13/22 09:00 05/17/22 22:01 Gabapentin 300 Mg Capsule PO 300 mg TID BIJAN Administration Meropenem 2,000 mg/ Sodium 100 mls @ 200 mls/hr 05/17/22 16:00 05/18/22 01:54 Chloride IV Infused Q8H BIJAN Infusion Ibuprofen 400 mg 05/12/22 21:04 05/13/22 22:57 Ibuprofen 200 Mg Tablet PO 400 mg Q8H PRN Administration mild/mod pain or temp >/= 101 Lacosamide 200 mg 05/13/22 09:00 05/17/22 17:07 Lacosamide 50 Mg Tablet PO 200 mg BID BIJAN Administration Lactulose 20 gm 05/12/22 21:15 05/17/22 22:01 Lactulose Oral Liq 20 Gm/30 Ml Udc PO 20 gm Q12H BIJAN Administration Protocol Levetiracetam 1,000 mg 05/13/22 09:00 05/17/22 17:05 Levetiracetam 500 Mg Tablet PO 1,000 mg BID BIJAN Administration Metoclopramide HCl 5 mg 05/17/22 14:29 05/17/22 17:05 Metoclopramide 5 Mg/Ml Sdv 2 Ml IVP 5 mg Q6H PRN Administration NAUSEA AND VOMITING Ondansetron HCl 4 mg 05/12/22 21:04 05/17/22 22:02 Ondansetron 2 Mg/Ml Sdv 2 Ml IVP 4 mg Q8H PRN Administration vomiting, or N/V if npo Pantoprazole Sodium 40 mg 05/13/22 09:00 05/17/22 08:[address] 40 Mg Tablet PO 40 mg DAILY BIJAN Administration Polyethylene Glycol 17 gm 05/13/22 09:00 05/17/22 08:02 Polyethylene Glycol 3350 Pkt 17 Gm PO 17 gm DAILY BIJAN Administration Quetiapine Fumarate 100 mg 05/13/22 09:00 05/17/22 17:05 Quetiapine 100 Mg Tablet PO 100 mg BID BIJAN Administration Senna/Docusate Sodium 1 tab 05/13/22 09:00 05/17/22 17:05 Sennosides-Docusate Tablet PO 1 tab BID BIJAN Administration Venlafaxine HCl 150 mg 05/13/22 08:00 05/17/22 08:03 Venlafaxine Er (24hr) 150 Mg Capsule PO 150 mg DAILY@08 BIJAN Administration PFSH Acute PFSH: Medical History Anemia Anxiety Cerebellar tremor Depression Depression, endogenous Gallstone pancreatitis GERD (gastroesophageal reflux disease) Hypertension Multiple sclerosis Onychodystrophy Plantar callus Seizure Staghorn renal calculus Struvite kidney stones Surgical History H/O cervical biopsy H/O: hysterectomy History of biopsy of bladder History of urostomy S/P ERCP Status post laparoscopic cholecystectomy (07/16/21) Family History Family/Other Cancer Hyperlipidemia Hypertension Denies family history of Diabetes CAD (coronary artery disease) Clotting disorder Dementia Psychiatric illness Chronic kidney disease (CKD) Suicide Anesthesia complication Bleeding disorder Family history of premature coronary artery disease Lung disease Stroke Social History Smoking and tobacco status: never smoked Alcohol intake: never Marital status: Current occupational status: retired and disabled History of recent travel: No Vitals/I&O/Wt Last Vital Signs Temp 98.3 F 05/18/22 07:35 Pulse 91 05/18/22 07:35 Resp 15 05/18/22 07:35 BP 137/87 05/18/22 07:35 Pulse Ox 95 05/18/22 07:35 O2 Del Method 05/18/22 07:35 05/17/22 05/18/22 05/18/22 22:59 06:59 14:59 Intake Total 220 / 1130 350 / 1480 Output Total 725 / 1000 1500 / 2500 150 / 150 Balance -505 / 130 -1150 / -1020 -150 / -150 Physical Exam Narrative: General : Patient is well developed , no acute distress, alert Head : Normal cephalic, a-traumatic. Ears : Pinnae and external canal are normal. Hearing is normal. Eyes : PERRLA, Sclera and injection are normal. No conjunctival discharge. Nose : Mucous membranes are without erythema. Throat : buccal mucosa is normal, gums are without significant recession or hypertrophy. Lungs : Equal chest rise bilaterally, no use of accessory muscles, trachea is midline. Cor : Rate and rhythm are normal. Abdomen : Soft, distended, NT, no g/r/m, urostomy in place with small parastomal hernia Extremities : No edema, no cyanosis or clubbing, dorsalis pedis pulses are present bilaterally, non-tender to palpation of calves. Upper extremities are normal bilaterally. Skin: There is a stage II sacral decubitus ulcer and she was sitting in a large amount of stool upon my examination. There is a stage IV decubitus ulcer of the right foot which is clean and has no erythema or exudate. Back : non-tender to palpation, no CVA tenderness. Neuro : Paraplegia Data 05/18/22 02:30 05/18/22 02:30 Micro: Microbiology 05/17/22 04:35 Blood Culture - Preliminary Blood NEGATIVE TO DATE 05/17/22 04:31 Blood Culture - Preliminary Blood NEGATIVE TO DATE 05/12/22 19:23 Blood Culture - Final Blood NO GROWTH AFTER 5 DAYS 05/12/22 19:24 Blood Culture - Final Blood NO GROWTH AFTER 5 DAYS A&P Assessment and plan (1) Partial small bowel obstruction: (2) Stage 2 skin ulcer of sacral region: (3) Paraplegia: (4) Parastomal hernia: Plan IVF N.p.o./NG tube. She is having bowel movements and passing flatus. There is a good chance that she will respond to this conservative treatment. Fleets enema Continue current wound care and frequent turning. Parastomal hernia contains a small portion of colon which is nonobstructed. Abdomen is nontender If patient acutely declines or does not improve in the next few days she may need surgical intervention Medical management per hospitalist Will follow Coding Level of Care Code Acute Player Services Representative for [facility] [place] Fwd Diagnoses Partial small bowel obstruction K56.600 Stage 2 skin ulcer of sacral region L98.429 Paraplegia G82.20 Parastomal hernia K43.5
[2022-05-18] MEDS: sodium chloride 0.9% 1,000 ML 150 ML IV ×2 (09:50→15:18)
[2022-05-18] MEDS: Fleet Enema 133 mL Enema PR (09:51)
[2022-05-18] MEDS: enoxaparin 40 mg/0.4 mL Syringe SUBCUT (09:52)
[2022-05-18] MEDS: lactulose oral liq 20 gm/30 mL UDC PO ×2 (10:46→20:41)
[2022-05-18] MEDS: polyethylene glycol 3350 Pkt 17 gm PO (10:46)
[2022-05-18] MEDS: quetiapine 100 mg Tablet PO ×2 (10:48→17:46)
[2022-05-18] MEDS: sennosides-docusate Tablet 1 TAB PO ×2 (10:48→17:46)
[2022-05-18] MEDS: gabapentin 300 mg Capsule PO ×3 (10:48→20:41)
[2022-05-18] MEDS: pantoprazole DR 40 mg Tablet PO (10:48)
[2022-05-18] MEDS: venlafaxine ER (24HR) 150 mg Capsule PO (10:48)
[2022-05-18] MEDS: levETIRAcetam 500 mg Tablet 1000 MG PO ×2 (10:48→17:46)
[2022-05-18 11:03] VITALS: BP 130/83; PULSE 81; RESP 15; TEMP 36.7; O2SAT 94
[2022-05-18] MEDS: vancomycin 1,250 MG/250 ML PIGGYBACK 200 MG IV (11:24)
[2022-05-18 16:00] VITALS: BP 158/89; PULSE 85; RESP 16; TEMP 36.6; O2SAT 92
--- NOTE | 2022-05-18 17:34 | P.CONIM_ITS ---
Providers/Reason For Consult Consulting Physician/Specialty*: Urology/Goncalves Reason for Consult*: Sepsis, renal stones, possible obstruction Requesting Physician: Dr. Dave Attending Physician: Kami Dave MD History of Present Illness History of Present Illness Teresa Moraes is a 52 year old female well-known to me for history of chronic neurogenic bladder secondary to neuromuscular disease, history of prolonged Hernandez catheter with eventual bladder defunctionalization leading to urinary diversion via ileal loop. Further complicated by recurrent stone disease with history of bilateral percutaneous nephrostolithotomy at the [place]. More recently she has been followed for chronic stable stone disease without significant progression over time. Hospitalized recently for UTI and what appeared to be sepsis. Placed on broad- spectrum antibiotics with improvement but still some lingering elevated fevers and elevated white count. A CT scan on admission appeared to be stable from prior CT scans. A second CT scan was performed after failure to improve as expected on antibiotic therapy and the interpretation was persistence of RIGHT hydronephrosis. That had not been mentioned in the first CT scan. I was consulted for opinion related to that. I reviewed both films from this admission and multiple CT scans from the past. Her stone burden appears about the same. She does have chronic mild dilation of the right collecting system. There has been no significant change in that for an extended period of time and the last time where there was a change there was increased hydronephrosis from stones in the [place] area. The most recent 2 CT scans did not show significant perirenal or periureteral inflammatory changes consistent with obstructive phenomenon or severe pyelonephritis changes. Clearly there are no stones in either ureter. She denies any severe pain in the right flank or right upper quadrant. She states she has pains all over and cannot relate anything particular in that area. Has had good urine output. Other findings have demonstrated evidence of a new onset ileus possible small bowel obstruction of unclear etiology. Some question about an internal hernia potentially causing that. On physical exam she has no distinct tenderness in her right CVA or right upper quadrant. My general impression is that the finding on the CT scan is a chronic change probably related to multiple stones historically no evidence of acute obstruction. If further concern exists over time a percutaneous nephrostomy tube with antegrade nephrostogram can further elucidate anatomy and transit of contrast. Generally its extraordinarily difficult if at all possible to intubate the ureters in a retrograde fashion through an ileal loop with exacerbated risk in the face of ongoing infection. I reviewed these findings and concerns with Dr. Dave. Review of Systems Const: Reports: fever(s) and chills Eyes: Denies: change in vision Card: Denies: chest pain or palpitations Resp: Denies: wheezing : Reports: other (Urostomy has been functioning well.); Denies: flank pain Neuro: Reports: other (Paraplegia secondary to multiple sclerosis) Psych: Reports: depression and memory loss; Denies: anxiety Chris/Lymph: Denies: enlarged lymph nodes Medications/Allergies Home Medications Medication Instructions Recorded Confirmed Last Taken Type melatonin 5 mg tablet 5 mg PO BEDTIME@20 08/21/19 05/13/22 Unknown History albuterol sulfate 90 mcg/actuation 2 puff inhalation QID 03/02/21 05/13/22 07/16/21 08:00 History aerosol inhaler (ProAir HFA) loratadine 10 mg tablet 10 mg PO DAILY@08 03/02/21 05/13/22 07/16/21 08:00 History sodium phosphates 19 gram-7 118 ml LA DAILY PRN Constipation 03/02/21 05/13/22 Unknown History gram/118 mL enema (Fleet Enema) potassium chloride 20 mEq 20 meq PO BID@08,17 04/20/21 05/13/22 07/16/21 08:00 History tablet,extended release sennosides 8.6 mg-docusate sodium 1 tab-cap PO BID constipation #30 07/16/21 05/13/22 Unknown Rx 50 mg tablet (Senna with Docusate tabs Sodium) guaifenesin 200 mg/5 mL oral liquid 150 mg PO Q4H PRN Cough 09/16/21 05/13/22 Unknown History Lactobacillus acidophilus 1 1,000 mmu cells PO BID 01/19/22 05/13/22 Unknown History billion cell capsule acetaminophen 650 mg 650 mg PO Q6H PRN pain 01/19/22 05/13/22 Unknown History tablet,extended release fluticasone 500 mcg-salmeterol 50 1 inh inhalation BID 01/19/22 05/13/22 Unknown History mcg/dose blistr powdr for inhalation (Advair Diskus) gabapentin 300 mg capsule 300 mg PO TID 01/19/22 05/13/22 Unknown History levetiracetam 1,000 mg tablet 1,000 mg PO BID 01/19/22 05/13/22 Unknown History (Keppra) magnesium hydroxide 400 mg/5 mL 30 ml PO BID PRN Unknown 01/19/22 05/13/22 Unknown History oral suspension polyethylene glycol 3350 17 4 g PO DAILY 01/19/22 05/13/22 Unknown History gram/dose oral powder (Miralax) interferon beta-1b 0.3 mg 0.25 mg SUBCUT Q48H 05/12/22 05/13/22 Unknown History subcutaneous kit (Betaseron) omeprazole 20 mg capsule,delayed 20 mg PO DAILY 05/12/22 05/13/22 Unknown History release baclofen 20 mg tablet 20 mg PO TID 05/13/22 05/13/22 Unknown History ketoconazole 2 % shampoo 1 applic topical Q14D 05/13/22 05/13/22 Unknown History ketoconazole 2 % topical cream 1 applic topical DAILY 05/13/22 05/13/22 Unknown History lacosamide 200 mg tablet (Vimpat) 200 mg PO BID 05/13/22 05/13/22 Unknown History melatonin 5 mg tablet 5 mg PO BEDTIME 05/13/22 05/13/22 Unknown History methenamine hippurate 1 gram 1 g PO QID 05/13/22 05/13/22 Unknown History tablet (Hiprex) sennosides 8.6 mg tablet (Senokot) 8.6 mg PO BID 05/13/22 05/13/22 Unknown History simethicone 80 mg chewable tablet 80 mg PO QID PRN Gastrointestinal 05/13/22 05/13/22 Unknown History Spasms Or Cramping sodium chloride 0.65 % nasal spray 1 spray intranasal BID PRN 05/13/22 05/13/22 Unknown History aerosol ([place] Saline) Congestion venlafaxine 150 mg 150 mg PO DAILY 05/13/22 05/13/22 Unknown History capsule,extended release 24 hr (Effexor XR) Allergies Allergy/AdvReac Type Severity Reaction Status Date / Time latex Allergy ALGY-Rash Verified 05/13/22 09:38 Current Medications Generic Name Dose Route Start Last Admin Trade Name Freq PRN Reason Stop Dose Admin Acetaminophen 650 mg 05/12/22 21:04 05/14/22 23:32 Acetaminophen 325 Mg Tablet PO 650 mg Q6H PRN Administration Mild/Mod Pain Or Temp >/= 101 Baclofen 40 mg 05/12/22 23:15 05/17/22 22:01 Baclofen 10 Mg Tablet PO 40 mg BEDTIME BIJAN Administration Enoxaparin Sodium 40 mg 05/14/22 08:30 05/18/22 09:52 Enoxaparin 40 Mg/0.4 Ml Syringe SUBCUT 40 mg Q24H BIJAN Administration Gabapentin 300 mg 05/13/22 09:00 05/18/22 15:18 Gabapentin 300 Mg Capsule PO 300 mg TID BIJAN Administration Meropenem 2,000 mg/ Sodium 100 mls @ 200 mls/hr 05/17/22 16:00 05/18/22 14:13 Chloride IV Infused Q8H BIJAN Infusion Vancomycin/PEG/NADA/Lysine/Water 1,250 mg in 250 mls @ 200 mls/hr 05/18/22 10:00 05/18/22 13:15 Vancocin IV Infused Q12H BIJAN Infusion Sodium Chloride 1,000 mls @ 150 mls/hr 05/18/22 08:00 05/18/22 15:18 Sodium Chloride 0.9% IV 150 mls/hr .Q6H40M BIJAN Administration Ibuprofen 400 mg 05/12/22 21:04 05/13/22 22:57 Ibuprofen 200 Mg Tablet PO 400 mg Q8H PRN Administration mild/mod pain or temp >/= 101 Lacosamide 200 mg 05/13/22 09:00 05/18/22 13:16 Lacosamide 50 Mg Tablet PO Not Given BID [facility] Lactulose 20 gm 05/12/22 21:15 05/18/22 10:46 Lactulose Oral Liq 20 Gm/30 Ml Udc PO 20 gm Q12H BIJAN Administration Protocol Levetiracetam 1,000 mg 05/13/22 09:00 05/18/22 10:48 Levetiracetam 500 Mg Tablet PO 1,000 mg BID BIJAN Administration Metoclopramide HCl 5 mg 05/17/22 14:29 05/17/22 17:05 Metoclopramide 5 Mg/Ml Sdv 2 Ml IVP 5 mg Q6H PRN Administration NAUSEA AND VOMITING Ondansetron HCl 4 mg 05/12/22 21:04 05/17/22 22:02 Ondansetron 2 Mg/Ml Sdv 2 Ml IVP 4 mg Q8H PRN Administration vomiting, or N/V if npo Pantoprazole Sodium 40 mg 05/13/22 09:00 05/18/22 10:[address] 40 Mg Tablet PO 40 mg DAILY BIJAN Administration Polyethylene Glycol 17 gm 05/13/22 09:00 05/18/22 10:46 Polyethylene Glycol 3350 Pkt 17 Gm PO 17 gm DAILY BIJAN Administration Quetiapine Fumarate 100 mg 05/13/22 09:00 05/18/22 10:48 Quetiapine 100 Mg Tablet PO 100 mg BID BIJAN Administration Senna/Docusate Sodium 1 tab 05/13/22 09:00 05/18/22 10:48 Sennosides-Docusate Tablet PO 1 tab BID BIJAN Administration Venlafaxine HCl 150 mg 05/13/22 08:00 05/18/22 10:48 Venlafaxine Er (24hr) 150 Mg Capsule PO 150 mg DAILY@08 BIJAN Administration PFSH Acute PFSH: Medical History Anemia Anxiety Cerebellar tremor Depression Depression, endogenous Gallstone pancreatitis GERD (gastroesophageal reflux disease) Hypertension Multiple sclerosis Onychodystrophy Plantar callus Seizure Staghorn renal calculus Struvite kidney stones Surgical History H/O cervical biopsy H/O: hysterectomy History of biopsy of bladder History of urostomy S/P ERCP Status post laparoscopic cholecystectomy (07/16/21) Family History Family/Other Cancer Hyperlipidemia Hypertension Denies family history of Diabetes CAD (coronary artery disease) Clotting disorder Dementia Psychiatric illness Chronic kidney disease (CKD) Suicide Anesthesia complication Bleeding disorder Family history of premature coronary artery disease Lung disease Stroke Social History Smoking and tobacco status: never smoked Alcohol intake: never Marital status: Current occupational status: retired and disabled History of recent travel: No Vitals/I&O/Wt Last Vital Signs Temp 97.9 F 05/18/22 16:00 Pulse 85 05/18/22 16:00 Resp 16 05/18/22 16:00 BP 158/89 05/18/22 16:00 Pulse Ox 92 05/18/22 16:00 O2 Del Method 05/18/22 16:00 05/18/22 05/18/22 05/18/22 06:59 14:59 22:59 Intake Total 350 / 1480 350 / 350 820 / 1170 Output Total 1500 / 2500 150 / 150 Balance -1150 / -1020 200 / 200 820 / 1020 Physical Exam Narrative: General: Alert and oriented, no acute distress. Somewhat disheveled HEENT atraumatic normocephalic Neck: Good range of motion Respiratory: No audible wheezing, symmetric movements of the chest. No laboring. Cardio vascular regular rhythm Abdomen: Soft, nontender, no masses, right lower quadrant urostomy Psychiatric: Not anxious. Does seem a little bit confused, more than usual Data 05/18/22 02:30 05/18/22 02:30 Micro: Microbiology 05/17/22 04:35 Blood Culture - Preliminary Blood NEGATIVE TO DATE 05/17/22 04:31 Blood Culture - Preliminary Blood NEGATIVE TO DATE 05/12/22 19:23 Blood Culture - Final Blood NO GROWTH AFTER 5 DAYS 05/12/22 19:24 Blood Culture - Final Blood NO GROWTH AFTER 5 DAYS A&P Assessment and plan (1) Hydronephrosis of right kidney: See HPI. He appears to be a chronic situation over many CT scans. (2) UTI (urinary tract infection): On broad-spectrum antibiotics (3) Struvite kidney stones: Stable stone picture with no evidence of ureteral obstruction (4) Multiple sclerosis: (5) Paraplegia: Plan See HPI Consult Attestations Medical Necessity Statement: See attending Coding Level of Care Code Acute Guard Supervisor for [facility] Fwd Diagnoses Hydronephrosis of right kidney N13.30 UTI (urinary tract infection) N39.0 Struvite kidney stones N20.0 Multiple sclerosis G35 Paraplegia G82.20
--- NOTE | 2022-05-18 17:35 | PM.PN ---
Subjective Subjective: Abdominal imaging that was performed overnight revealed a new small bowel obstruction with transition point in the right anterior hemiabdomen just posterior to the small bowel anastomosis. Findings suspicious for an internal hernia at the transition site. NG tube was inserted with recovery of around 1 L of gastric contents. Currently NGT is to low intermittent suction. White count is persisting to be at 17,000. Continues to have low-grade intermittent fever. Blood culture thus far remains negative. She did have a bowel movement earlier today. Also passing gas currently. Surgical recommendations appreciated. Medications: Reviewed: Yes Medication Review Details: Generic Name Dose Route Start Last Admin Trade Name Freq PRN Reason Stop Dose Admin Acetaminophen 650 mg 05/12/22 21:04 05/14/22 23:32 Acetaminophen 32 5 Mg Tablet PO 650 mg Q6H PRN Administration Mild/Mod Pain Or Temp >/= 101 Baclofen 40 mg 05/12/22 23:15 05/15/22 20:11 Baclofen 10 Mg T ablet PO 40 mg BEDTIME BIJAN Administration Enoxaparin Sodium 40 mg 05/14/22 08:30 05/15/22 08:10 Enoxaparin 40 Mg /0.4 Ml Syringe SUBCUT 40 mg Q24H BIJAN Administration Gabapentin 300 mg 05/13/22 09:00 05/15/22 20:12 Gabapentin 300 M g Capsule PO 300 mg TID BIJAN Administration Meropenem 500 mg/ Sodium 50 mls @ 100 mls/ hr 05/14/22 08:30 05/16/22 01:21 Chloride IV Infused Q8H BIJAN Infusion Vancomycin HCl 1,0 00 mg/ 250 mls @ 250 mls /hr 05/15/22 11:15 05/16/22 04:44 Sodium Chloride IV Infused Q8H BIJAN Infusion Protocol As Directed Ibuprofen 400 mg 05/12/22 21:04 05/13/22 22:57 Ibuprofen 200 Mg Tablet PO 400 mg Q8H PRN Administration mild/mod pain or temp >/= 101 Lacosamide 200 mg 05/13/22 09:00 05/15/22 18:10 Lacosamide 50 Mg Tablet PO 200 mg BID BIJAN Administration Lactulose 20 gm 05/12/22 21:15 05/15/22 20:15 Lactulose Oral L iq 20 Gm/30 Ml Udc PO 20 gm Q12H BIJAN Administration Protocol Levetiracetam 1,000 mg 05/13/22 09:00 05/15/22 18:10 Levetiracetam 50 0 Mg Tablet PO 1,000 mg BID BIJAN Administration Non-Formulary Medi cation 1 gm 05/13/22 09:00 05/15/22 18:42 Methenamine Gertrude urate [Hiprex] PO Not Given BID BIJAN Ondansetron HCl 4 mg 05/12/22 21:04 05/13/22 10:53 Ondansetron 2 Mg /Ml Sdv 2 Ml IVP 4 mg Q8H PRN Administration vomiting, or N/V if npo Pantoprazole Sodiu m 40 mg 05/13/22 09:00 05/15/22 08:[address] 40 Mg Tablet PO 40 mg DAILY BIJAN Administration Polyethylene Glyco l 17 gm 05/13/22 09:00 05/15/22 08:09 Polyethylene Gly col 3350 Pkt 17 Gm PO Not Given DAILY BIJAN Quetiapine Fumarat e 100 mg 05/13/22 09:00 05/15/22 18:10 Quetiapine 100 M g Tablet PO 100 mg BID BIJAN Administration Senna/Docusate Sod ium 1 tab 05/13/22 09:00 05/15/22 18:42 Sennosides-Docus ate Tablet PO Not Given BID BIJAN Venlafaxine HCl 150 mg 05/13/22 08:00 05/15/22 08:08 Venlafaxine Er ( 24hr) 150 Mg Capsu le PO 150 mg DAILY@08 BIJAN Administration Vitals/I&O/Wt Last Vital Signs Temp 97.9 F 05/18/22 16:00 Pulse 85 05/18/22 16:00 Resp 16 05/18/22 16:00 BP 158/89 05/18/22 16:00 Pulse Ox 92 05/18/22 16:00 O2 Del Method 05/18/22 16:00 05/18/22 05/18/22 05/18/22 06:59 14:59 22:59 Intake Total 350 / 1480 350 / 350 820 / 1170 Output Total 1500 / 2500 150 / 150 Balance -1150 / -1020 200 / 200 820 / 1020 Physical Exam Narrative: General: No acute distress, AO x3 HEENT: PERRLA, pupils bilaterally equal and reactive, pallors not present Chest: Normal vesicular breath sounds, no added sounds, equal good air entry bilaterally CVS: S1-S2 regular, no murmurs, no tachycardia, no gallops, no rubs Abdomen: Soft, distended Data 05/18/22 02:30 05/18/22 02:30 Micro: Microbiology 05/17/22 04:35 Blood Culture - Preliminary Blood NEGATIVE TO DATE 05/17/22 04:31 Blood Culture - Preliminary Blood NEGATIVE TO DATE 05/12/22 19:23 Blood Culture - Final Blood NO GROWTH AFTER 5 DAYS 05/12/22 19:24 Blood Culture - Final Blood NO GROWTH AFTER 5 DAYS A&P Assessment and plan (1) History of urostomy: (2) GERD (gastroesophageal reflux disease): (3) Hypertension: (4) Depression: (5) Anxiety: (6) Seizure: (7) Multiple sclerosis: (8) Paraplegia: (9) Staghorn renal calculus: (10) UTI (urinary tract infection): (11) Constipation: (12) Decubitus ulcer, heel, right, unstageable: (13) Generalized epilepsy: Plan 52-year-old female with past medical history of multiple sclerosis, anxiety depression cerebellar tremor, hypertension seizure disorder renal calculi, urostomy ?? reason, frequent UTI was brought in with chief complaint of abdominal pain nausea vomiting, as well as fever. She is a prison resident. # small bowel obstruction with transition point in the right anterior hemiabdomen This was not evident on initial CT imaging on admission. Yesterday was complaining of multiple episodes of vomiting and abdominal distention for which CT of the abdomen was performed and showed a new small bowel obstruction with transition point as noted above. Currently NG in place with suction Appreciate surgical recommendations Passing feces and flatus currently. Would monitor with conservative measures for now. # UTI Patient has a urostomy, history of staghorn calculi and complicated UTIs. CT abdomen performed overnight makes note of right-sided mild hydronephrosis. Will discuss with urology if this is a more chronic finding then unlikely to be the explanation of her persisting fever and leukocytosis at this time. Urine culture from this admission growing Pseudomonas aeruginosa and Klebsiella pneumoniae. d/c meropenem, change to cefepime 2 g iv q8h in keeping with cx results. D/c Vancomycin as MRSA negative # Persisting intermittent fever unclear cause of persistence currently May be related to UTI but would expect to be better at this point. Check C diff . repeat blood culture. # RLE patchy redness ? cellultis, patient reports this is usual for her. DVT prophylaxis: On subcu Lovenox CODE STATUS full code Attestations Medical Necessity Statement*: iv abx, persisting fevr and leukocytsosi, SBO Coding Level of Care Code Acute Nurse Sane for [facility] Fwd Diagnoses History of urostomy Z98.890 GERD (gastroesophageal reflux disease) K21.9 Hypertension I10 Depression F32.9 Anxiety F41.9 Seizure R56.9 Multiple sclerosis G35 Paraplegia G82.20 Staghorn renal calculus N20.0 UTI (urinary tract infection) N39.0 Constipation K59.00 Decubitus ulcer, heel, right, unstageable L89.610 Generalized epilepsy G40.309
[2022-05-18] MEDS: lacosamide 50 mg Tablet 200 MG PO (17:46)
[2022-05-18] MEDS: cefepime 2,000 MG in sodium chloride 0.9% (plus) 50 ML 100 MG IV (18:07)
[2022-05-18 20:00] VITALS: BP 171/80; PULSE 84; RESP 17; TEMP 36.8; O2SAT 92
[2022-05-18] MEDS: baclofen 10 mg Tablet 40 MG PO (20:41)
[2022-05-19] VITALS: BP 174/82; PULSE 84; RESP 17; TEMP 36.8; O2SAT 95
[2022-05-19] MEDS: sodium chloride 0.9% 1,000 ML 75 ML IV ×2 (01:10→11:55)
[2022-05-19] MEDS: cefepime 2,000 MG in sodium chloride 0.9% (plus) 50 ML 100 MG IV ×3 (01:13→17:39)
[2022-05-19 03:59] VITALS: BP 172/90; PULSE 85; RESP 17; TEMP 36.8; O2SAT 96
[2022-05-19 05:50] LABS: Basophils % 0.2 %; Eosinophils # 0.2 10^3/uL (0.0-0.8); Eosinophils % 1.5 %; Hematocrit 33.1 % (37.0-47.0); Hemoglobin 10.5 g/dL (11.5-15.3); Lymphocytes # 2.2 10^3/uL (0.8-4.8); Lymphocytes % 20.3 %; Mean Corpuscular HGB Conc 31.7 g/dL (30.0-36.0); Mean Corpuscular Hemoglobin 30.7 pg (28.0-34.0); Mean Corpuscular Volume 96.8 fl (81-99); Mean Platelet Volume 9.8 fL (7.4-10.4); Monocytes % 8.8 %; Neutrophils # 7.56 10^3/uL (1.8-7.7); Neutrophils % 68.3 %; Nucleated Red Blood Cells % 0 %; Platelet Count 482 10^3/cmm (130-400); Red Blood Count 3.42 10^6/uL (4.1-5.3); Red Cell Distribution Width 13.2 % (12.1-15.1); White Blood Count 11.1 10^3/uL (4.0-10.0)
[2022-05-19 06:23] LABS: Alanine Aminotransferase 7 U/L (0-33); Albumin Level 3.3 g/dL (3.5-5.2); Alkaline Phosphatase 72 U/L (35-105); Anion Gap 19.7 (5-19); Aspartate Amino Transferase 11 U/L (0-32); Blood Urea Nitrogen 16 mg/dL (6-20); Calcium 8.3 mg/dL (8.5-10.5); Carbon Dioxide 17 mmol/L (22-29); Chloride 112 mmol/L (98-107); Creatine Phosphokinase 27 U/L (26-192); Creatinine Clr Calc Pharmacy 242.7246; Globulin 4.1 g/dL (1.3-4.6); Glomerular Filtration Rate 233.6 mL/min (90-130); Glucose 89 mg/dL (65-115); Osmolality Calculated 301 mOsm/kg (285-295); Potassium 3.7 mmol/L (3.5-5.1); Sodium 145 mmol/L (136-145); Total Bilirubin 0.2 mg/dL (0.15-1.2); Total Protein 7.4 g/dL (6.6-8.7)
[2022-05-19 06:25] LABS: Procalcitonin 0.06 ng/mL (0-0.5)
[2022-05-19 08:00] VITALS: BP 167/89; PULSE 82; RESP 17; O2SAT 93
--- NOTE | 2022-05-19 08:22 | XR_ITS ---
WS: [id number] XR acute abdomen series 43538 REASON FOR EXAM: PSBO FINDINGS: Nasogastric tube present with the tip at the junction of the fundus and body of the stomach. Stomach decompressed compared to 05/17/2022 CT scan. No free air or retroperitoneal air identified. Group of moderately dilated small bowel loops in the left central abdomen. The degree of distention i n the number of distended small bowel loops appears decreased compared to the CT scan of 05/17/2022. Large amount of fecal material in the left colon with a very large volume in the rectum. Multiple moderate to large calculi in both kidneys, predominating on the right. XR/XR acute abdomen series [id number] IMPRESSION: Stomach decompressed compared to 05/17/2022 CT scan. Bowel gas pattern consistent with partial small bowel obstruction which may hav e improved compared to the previous CT scan of 03/17/2023. Large amount of left colon and rectal fecal material. Multiple moderate to large intrarenal calculi bilaterally.
[2022-05-19] MEDS: levETIRAcetam 500 mg Tablet 1000 MG PO ×2 (08:57→17:40)
[2022-05-19] MEDS: quetiapine 100 mg Tablet PO ×2 (08:57→17:40)
[2022-05-19] MEDS: sennosides-docusate Tablet 1 TAB PO ×2 (08:57→17:40)
[2022-05-19] MEDS: gabapentin 300 mg Capsule PO ×3 (08:58→20:10)
[2022-05-19] MEDS: venlafaxine ER (24HR) 150 mg Capsule PO (08:58)
[2022-05-19] MEDS: pantoprazole DR 40 mg Tablet PO (08:58)
[2022-05-19] MEDS: lacosamide 50 mg Tablet 200 MG PO ×2 (08:58→17:45)
[2022-05-19] MEDS: polyethylene glycol 3350 Pkt 17 gm PO (08:58)
[2022-05-19] MEDS: enoxaparin 40 mg/0.4 mL Syringe SUBCUT (08:58)
[2022-05-19 09:50] LABS: Vancomycin Trough 5.8 ug/mL (10-15)
[2022-05-19] MEDS: lactulose oral liq 20 gm/30 mL UDC PO (10:19)
--- NOTE | 2022-05-19 11:42 | XRR_ITS ---
PROCEDURE INFORMATION: Exam: XR Abdomen Exam date and time: 05/19/2022 11:50 AM Age: 52 years old Clinical indication: Abdominal pain; Generalized; Prior surgery; Surgery type: Gb, hyst urostomy; Additional info: Sbo TECHNIQUE: Imaging protocol: Radiologic exam of the abdomen. Views: Frontal supine view of the abdomen. 1 View. COMPARISON: CR XR acute abdomen series [id number] 05/19/2022 8:26 AM FINDINGS: Limitations: Study is limited to single upright view of the upper abdomen and lung bases. Lungs: Visualized lung bases are clear. Gastrointestinal tract: There is an NG 2 projecting within the body of the stomach and adequate position. There is mild gaseous distention involving the bowel loops in the upper abdomen. There is no free air apparent. Intraperitoneal space: Surgical clips are noted in the right upper quadrant. Bones/joints: Unremarkable. Other findings: No suspicous calcifications. XR/XR abdomen 1V* [id number] IMPRESSION: Limited study. No free air detected.
[2022-05-19 11:51] VITALS: BP 155/79; PULSE 82; RESP 17; TEMP 36.6; O2SAT 95
[2022-05-19] MEDS: Fleet Enema 133 mL Enema PR (11:58)
--- NOTE | 2022-05-19 14:52 | PM.PN ---
Subjective Subjective: Patient denies any nausea vomiting or abdominal pain today. Still having bowel movements and passing flatus. I ordered a repeat upright abdominal x-ray because this morning's did not get much of the abdomen. No evidence of obstruction on repeat x-ray. Patient got a fleets enema and had a massive bowel movement after the x-ray. Vitals/I&O/Wt Last Vital Signs Temp 98 F 05/19/22 11:51 Pulse 82 05/19/22 11:51 Resp 17 05/19/22 11:51 BP 155/79 05/19/22 11:51 Pulse Ox 95 05/19/22 11:51 O2 Del Method 05/19/22 03:59 05/18/22 05/19/22 05/19/22 22:59 06:59 14:59 Intake Total 1870 / 2220 50 / 2270 856.25 / 856.25 Output Total 2665 / 2815 350 / 3165 Balance -795 / -595 -300 / -895 856.25 / 856.25 Physical Exam Narrative: General: No acute distress, awake alert and oriented x3 Abdomen: Soft, mildly distended, nontender, no guarding rebound or masses Data 05/19/22 05:36 05/19/22 05:36 A&P Assessment and plan (1) Constipation: (2) Partial small bowel obstruction: Plan PSBO resolving. DC NG tube. Give laxatives. Fleets enema was given today. Clear liquids. We will follow. Attestations Medical Necessity Statement*: Patient requires at least 1 more night in the hospital for resolution of bowel obstruction and diet advancement. 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
[2022-05-19 16:00] VITALS: BP 161/79; PULSE 79; RESP 17; TEMP 36.6; O2SAT 94
[2022-05-19] MEDS: magnesium hydroxide 30 mL UDC PO (17:40)
--- NOTE | 2022-05-19 18:10 | PC.NURSE ---
1800 - NG TUBE DC'D PER MD ORDER. TOLERATED WELL. ADVANCING TO CLEAR LIQUID DIET PER MD.
--- NOTE | 2022-05-19 19:01 | PM.PN ---
Subjective Subjective: Afebrile now over last 24 hours. WBC count trending down to 11.1. SBO is resolving. Plan to discontinue NGT and start a clear liquid diet today per surgical recommendations. Medications: Reviewed: Yes Medication Review Details: Generic Name Dose Route Start Last Admin Trade Name Freq PRN Reason Stop Dose Admin Acetaminophen 650 mg 05/12/22 21:04 05/14/22 23:32 Acetaminophen 32 5 Mg Tablet PO 650 mg Q6H PRN Administration Mild/Mod Pain Or Temp >/= 101 Baclofen 40 mg 05/12/22 23:15 05/15/22 20:11 Baclofen 10 Mg T ablet PO 40 mg BEDTIME BIJAN Administration Enoxaparin Sodium 40 mg 05/14/22 08:30 05/15/22 08:10 Enoxaparin 40 Mg /0.4 Ml Syringe SUBCUT 40 mg Q24H BIJAN Administration Gabapentin 300 mg 05/13/22 09:00 05/15/22 20:12 Gabapentin 300 M g Capsule PO 300 mg TID BIJAN Administration Meropenem 500 mg/ Sodium 50 mls @ 100 mls/ hr 05/14/22 08:30 05/16/22 01:21 Chloride IV Infused Q8H BIJAN Infusion Vancomycin HCl 1,0 00 mg/ 250 mls @ 250 mls /hr 05/15/22 11:15 05/16/22 04:44 Sodium Chloride IV Infused Q8H BIJAN Infusion Protocol As Directed Ibuprofen 400 mg 05/12/22 21:04 05/13/22 22:57 Ibuprofen 200 Mg Tablet PO 400 mg Q8H PRN Administration mild/mod pain or temp >/= 101 Lacosamide 200 mg 05/13/22 09:00 05/15/22 18:10 Lacosamide 50 Mg Tablet PO 200 mg BID BIJAN Administration Lactulose 20 gm 05/12/22 21:15 05/15/22 20:15 Lactulose Oral L iq 20 Gm/30 Ml Udc PO 20 gm Q12H BIJAN Administration Protocol Levetiracetam 1,000 mg 05/13/22 09:00 05/15/22 18:10 Levetiracetam 50 0 Mg Tablet PO 1,000 mg BID BIJAN Administration Non-Formulary Medi cation 1 gm 05/13/22 09:00 05/15/22 18:42 Methenamine Gertrude urate [Hiprex] PO Not Given BID BIJAN Ondansetron HCl 4 mg 05/12/22 21:04 05/13/22 10:53 Ondansetron 2 Mg /Ml Sdv 2 Ml IVP 4 mg Q8H PRN Administration vomiting, or N/V if npo Pantoprazole Sodiu m 40 mg 05/13/22 09:00 05/15/22 08:[address] 40 Mg Tablet PO 40 mg DAILY BIJAN Administration Polyethylene Glyco l 17 gm 05/13/22 09:00 05/15/22 08:09 Polyethylene Gly col 3350 Pkt 17 Gm PO Not Given DAILY BIJAN Quetiapine Fumarat e 100 mg 05/13/22 09:00 05/15/22 18:10 Quetiapine 100 M g Tablet PO 100 mg BID BIJAN Administration Senna/Docusate Sod ium 1 tab 05/13/22 09:00 05/15/22 18:42 Sennosides-Docus ate Tablet PO Not Given BID BIJAN Venlafaxine HCl 150 mg 05/13/22 08:00 05/15/22 08:08 Venlafaxine Er ( 24hr) 150 Mg Capsu le PO 150 mg DAILY@08 BIJAN Administration Vitals/I&O/Wt Last Vital Signs Temp 98 F 05/19/22 16:00 Pulse 79 05/19/22 16:00 Resp 17 05/19/22 16:00 BP 161/79 05/19/22 16:00 Pulse Ox 94 05/19/22 16:00 O2 Del Method 05/19/22 03:59 05/19/22 05/19/22 05/19/22 06:59 14:59 22:59 Intake Total 50 / 2270 856.25 / 856.25 50 / 906.25 Output Total 350 / 3165 900 / 900 Balance -300 / -895 856.25 / 856.25 -850 / 6.25 Physical Exam Narrative: General: No acute distress, AO x3 HEENT: PERRLA, pupils bilaterally equal and reactive, pallors not present Chest: Normal vesicular breath sounds, no added sounds, equal good air entry bilaterally CVS: S1-S2 regular, no murmurs, no tachycardia, no gallops, no rubs Abdomen: Soft, distended Data 05/19/22 05:36 05/19/22 05:36 A&P Assessment and plan (1) History of urostomy: (2) GERD (gastroesophageal reflux disease): (3) Hypertension: (4) Depression: (5) Anxiety: (6) Seizure: (7) Multiple sclerosis: (8) Paraplegia: (9) Staghorn renal calculus: (10) UTI (urinary tract infection): (11) Constipation: (12) Decubitus ulcer, heel, right, unstageable: (13) Generalized epilepsy: Plan 52-year-old female with past medical history of multiple sclerosis, anxiety depression cerebellar tremor, hypertension seizure disorder renal calculi, urostomy ?? reason, frequent UTI was brought in with chief complaint of abdominal pain nausea vomiting, as well as fever. She is a residential resident. # small bowel obstruction with transition point in the right anterior hemiabdomen Seen on CT imaging on May 17, 2022. CT of the abdomen was performed and showed a new small bowel obstruction with transition point as noted above. Currently NG in place with suction, SBO is resolving, patient having good bowel movements, plan for NGT removal later today per surgical recommendations followed by clear liquid diet. Appreciate surgical recommendations Passing feces and flatus currently. Would monitor with conservative measures for now. # UTI Patient has a urostomy, history of staghorn calculi and complicated UTIs. CT abdomen performed makes note of right-sided mild hydronephrosis. Discussed with urology and appreciate recommendations. No current intervention indicated from a urology perspective. Urine culture from this admission growing Pseudomonas aeruginosa and Klebsiella pneumoniae. Continue cefepime 2 g iv q8h in keeping with cx results, dosing optimized to cover Pseudomonas. # Persisting intermittent fever This is now resolving C. difficile pending. # RLE patchy redness ? cellultis, patient reports this is usual for her. No significant change. Less likely cellulitis Lower extremity Doppler negative for DVT. DVT prophylaxis: On subcu Lovenox CODE STATUS full code Attestations Medical Necessity Statement*: Afebrile over the last 24 hours. Slowly improving, leukocytosis trending down. Improving bowel function, still needs close monitoring and IV antibiotics. 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
[2022-05-19 20:00] VITALS: BP 163/81; PULSE 78; RESP 16; TEMP 37.2; O2SAT 96
[2022-05-19] MEDS: baclofen 10 mg Tablet 40 MG PO (20:10)
[2022-05-20] VITALS: BP 169/82; PULSE 81; RESP 18; TEMP 37.2; O2SAT 93
[2022-05-20] MEDS: sodium chloride 0.9% 1,000 ML 75 ML IV ×2 (02:24→17:26)
[2022-05-20] MEDS: cefepime 2,000 MG in sodium chloride 0.9% (plus) 50 ML 100 MG IV ×3 (02:24→17:25)
[2022-05-20 03:14] VITALS: BP 172/83; PULSE 83; RESP 18; TEMP 36.9; O2SAT 93
[2022-05-20 08:00] VITALS: BP 177/78; PULSE 79; RESP 15; TEMP 36.9; O2SAT 94
[2022-05-20] MEDS: metoclopramide 5 mg/mL SDV 2 mL IVP (08:48)
--- NOTE | 2022-05-20 09:17 | XR_ITS ---
WS: [id number] XR acute abdomen series [id number] REASON FOR EXAM: evaluate for ileus/ SBO FINDINGS: Nasogastric tube no longer present. No free air or retroperitoneal air. Significant dilatation of the stomach and multiple small bowel loops. Greater distention and more whitney ntifiable dilated small bowel loops than on the examination of 05/19/2028 at 8:28 AM. Significant paty sabra distention is developed since the previous exam as well. Again noted are bilateral large renal calculi and a dramatic fecal material in the rectal vault. XR/XR acute abdomen series [id number] IMPRESSION: High-grade small bowel obstruction.
[2022-05-20] MEDS: venlafaxine ER (24HR) 150 mg Capsule PO (10:37)
[2022-05-20] MEDS: ondansetron 2 mg/ML SDV 2 mL 4 MG IVP (10:53)
[2022-05-20] MEDS: enoxaparin 40 mg/0.4 mL Syringe SUBCUT (10:53)
[2022-05-20 11:36] VITALS: BP 173/81; PULSE 78; RESP 16; TEMP 36.8; O2SAT 94
[2022-05-20] MEDS: scopolamine 1.5 Patch 1 PATCH TRANSDERMA (12:56)
--- NOTE | 2022-05-20 13:45 | P.PN_ITS ---
Subjective Subjective: Patient seen and examined. She still reports no abdominal pain and to passing flatus and having bowel movements. However she had vomiting again yesterday. Vitals/I&O/Wt Last Vital Signs Temp 98.3 F 05/20/22 11:36 Pulse 78 05/20/22 11:36 Resp 16 05/20/22 11:36 BP 173/81 05/20/22 11:36 Pulse Ox 94 05/20/22 11:36 O2 Del Method 05/20/22 11:36 05/19/22 05/20/22 05/20/22 22:59 06:59 14:59 Intake Total 300 / 1156.25 1250 / 2406.25 50 / 50 Output Total 900 / 900 210 / 210 Balance -600 / 256.25 1250 / 1506.25 -160 / -160 Physical Exam Narrative: General: No acute distress, awake alert and oriented x3 Abdomen: Soft, distended, nontender, no guarding rebound or masses Data 05/19/22 05:36 05/19/22 05:36 Micro: Microbiology 05/19/22 12:57 C.difficile Toxin B Gene (PCR) - Final Stool - Stool Aspirate A&P Assessment and plan (1) Constipation: (2) Partial small bowel obstruction: Plan NG tube to LIWS IV fluids Gastrografin small bowel follow-through tomorrow Medical management per hospitalist Attestations Medical Necessity Statement*: Patient requires at least 1 more night in the hospital for nasogastric suctioning and small bowel follow-through tomorrow Coding Level of Care Code Acute Code for [facility] Fwd Diagnoses Constipation K59.00 Partial small bowel obstruction K56.600
--- NOTE | 2022-05-20 15:29 | P.PN_ITS ---
Subjective Subjective: c /o vomiting again today. Abdomen appears firmer than yesterday's exam. Medications: Reviewed: Yes Medication Review Details: Generic Name Dose Route Start Last Admin Trade Name Ina PRN Reason Stop Dose Admin Acetaminophen 650 mg 05/12/22 21:04 05/14/22 23:32 Acetaminophen 32 5 Mg Tablet PO 650 mg Q6H PRN Administration Mild/Mod Pain Or Temp >/= 101 Baclofen 40 mg 05/12/22 23:15 05/15/22 20:11 Baclofen 10 Mg T ablet PO 40 mg BEDTIME BIJAN Administration Enoxaparin Sodium 40 mg 05/14/22 08:30 05/15/22 08:10 Enoxaparin 40 Mg /0.4 Ml Syringe SUBCUT 40 mg Q24H BIJAN Administration Gabapentin 300 mg 05/13/22 09:00 05/15/22 20:12 Gabapentin 300 M g Capsule PO 300 mg TID BIJAN Administration Meropenem 500 mg/ Sodium 50 mls @ 100 mls/ hr 05/14/22 08:30 05/16/22 01:21 Chloride IV Infused Q8H BIJAN Infusion Vancomycin HCl 1,0 00 mg/ 250 mls @ 250 mls /hr 05/15/22 11:15 05/16/22 04:44 Sodium Chloride IV Infused Q8H BIJAN Infusion Protocol As Directed Ibuprofen 400 mg 05/12/22 21:04 05/13/22 22:57 Ibuprofen 200 Mg Tablet PO 400 mg Q8H PRN Administration mild/mod pain or temp >/= 101 Lacosamide 200 mg 05/13/22 09:00 05/15/22 18:10 Lacosamide 50 Mg Tablet PO 200 mg BID BIJAN Administration Lactulose 20 gm 05/12/22 21:15 05/15/22 20:15 Lactulose Oral L iq 20 Gm/30 Ml Udc PO 20 gm Q12H BIJAN Administration Protocol Levetiracetam 1,000 mg 05/13/22 09:00 05/15/22 18:10 Levetiracetam 50 0 Mg Tablet PO 1,000 mg BID BIJAN Administration Non-Formulary Medi cation 1 gm 05/13/22 09:00 05/15/22 18:42 Methenamine Gertrude urate [Hiprex] PO Not Given BID BIJAN Ondansetron HCl 4 mg 05/12/22 21:04 05/13/22 10:53 Ondansetron 2 Mg /Ml Sdv 2 Ml IVP 4 mg Q8H PRN Administration vomiting, or N/V if npo Pantoprazole Sodiu m 40 mg 05/13/22 09:00 05/15/22 08:[address] 40 Mg Tablet PO 40 mg DAILY BIJAN Administration Polyethylene Glyco l 17 gm 05/13/22 09:00 05/15/22 08:09 Polyethylene Gly col 3350 Pkt 17 Gm PO Not Given DAILY BIJAN Quetiapine Fumarat e 100 mg 05/13/22 09:00 05/15/22 18:10 Quetiapine 100 M g Tablet PO 100 mg BID BIJAN Administration Senna/Docusate Sod ium 1 tab 05/13/22 09:00 05/15/22 18:42 Sennosides-Docus ate Tablet PO Not Given BID BIJAN Venlafaxine HCl 150 mg 05/13/22 08:00 05/15/22 08:08 Venlafaxine Er ( 24hr) 150 Mg Capsu le PO 150 mg DAILY@08 BIJAN Administration Vitals/I&O/Wt Last Vital Signs Temp 98.3 F 05/20/22 11:36 Pulse 78 05/20/22 11:36 Resp 16 05/20/22 11:36 BP 173/81 05/20/22 11:36 Pulse Ox 94 05/20/22 11:36 O2 Del Method 05/20/22 11:36 05/20/22 05/20/22 05/20/22 06:59 14:59 22:59 Intake Total 1250 / 2406.25 50 / 50 Output Total 210 / 210 Balance 1250 / 1506.25 -160 / -160 Physical Exam Narrative: General: No acute distress, AO x3 HEENT: PERRLA, pupils bilaterally equal and reactive, pallors not present Chest: Normal vesicular breath sounds, no added sounds, equal good air entry bilaterally CVS: S1-S2 regular, no murmurs, no tachycardia, no gallops, no rubs Abdomen: Soft, distended Data 05/19/22 05:36 05/19/22 05:36 Micro: Microbiology 05/19/22 12:57 C.difficile Toxin B Gene (PCR) - Final Stool - Stool Aspirate A&P Assessment and plan (1) History of urostomy: (2) GERD (gastroesophageal reflux disease): (3) Hypertension: (4) Depression: (5) Anxiety: (6) Seizure: (7) Multiple sclerosis: (8) Paraplegia: (9) Staghorn renal calculus: (10) UTI (urinary tract infection): (11) Constipation: (12) Decubitus ulcer, heel, right, unstageable: (13) Generalized epilepsy: Plan 52-year-old female with past medical history of multiple sclerosis, anxiety depression cerebellar tremor, hypertension seizure disorder renal calculi, urostomy ?? reason, frequent UTI was brought in with chief complaint of abdominal pain nausea vomiting, as well as fever. She is a assisted resident. # small bowel obstruction with transition point in the right anterior hemiabdomen Seen on CT imaging on May 17, 2022. CT of the abdomen was performed and showed a new small bowel obstruction with transition point as noted above. Ng was removed yesterday with starting clears however patient is vomting again today, will obtain acute abdomen series now. Add scopolamine patch as reglan and zofran not adequate Would monitor with conservative measures for now. # UTI Patient has a urostomy, history of staghorn calculi and complicated UTIs. CT abdomen performed makes note of right-sided mild hydronephrosis. Discussed with urology and appreciate recommendations. No current intervention indicated from a urology perspective. Urine culture from this admission growing Pseudomonas aeruginosa and Klebsiella pneumoniae. Continue cefepime 2 g iv q8h in keeping with cx results, dosing optimized to cover Pseudomonas. # Persisting intermittent fever This is now resolved C. difficile negative # RLE patchy redness now resolved Lower extremity Doppler negative for DVT. DVT prophylaxis: On subcu Lovenox CODE STATUS full code Attestations Medical Necessity Statement*: vomiting again after removing NGT, concern for r ecurrent SBO Coding Level of Care Code Acute Code for [facility] Fwd Diagnoses History of urostomy Z98.890 GERD (gastroesophageal reflux disease) K21.9 Hypertension I10 Depression F32.9 Anxiety F41.9 Seizure R56.9 Multiple sclerosis G35 Paraplegia G82.20 Staghorn renal calculus N20.0 UTI (urinary tract infection) N39.0 Constipation K59.00 Decubitus ulcer, heel, right, unstageable L89.610 Generalized epilepsy G40.309
[2022-05-20 16:00] VITALS: BP 172/90; PULSE 83; RESP 15; TEMP 36.6; O2SAT 98
[2022-05-20] MEDS: lacosamide 50 mg Tablet 200 MG PO (17:24)
[2022-05-20] MEDS: quetiapine 100 mg Tablet PO (17:24)
[2022-05-20] MEDS: sennosides-docusate Tablet 1 TAB PO (17:24)
[2022-05-20] MEDS: gabapentin 300 mg Capsule PO (17:24)
[2022-05-20] MEDS: levETIRAcetam 500 mg Tablet 1000 MG PO (17:24)
[2022-05-20 19:58] VITALS: BP 173/90; PULSE 68; RESP 17; TEMP 36.6; O2SAT 96
--- NOTE | 2022-05-20 20:14 | PC.NURSE ---
Dr Hebert contacted regarding high blood pressure of 170s/80s and regarding whether to administer PO meds, due to patient being NPO. Instructed to hold all PO meds this evening. Order to administer labetalol 10mg IVP Q4H PRN for SBP>180, or DB>100, and hold if heart rate<60
[2022-05-21] VITALS (7 sets, daily range): BP systolic 171–180; BP diastolic 78–96; PULSE 67–83; RESP 16–18; TEMP 36.7–37.1; O2SAT 94–99
--- NOTE | 2022-05-21 | XR_ITS ---
WS: [id number] ABDOMEN 1 VIEW(S) HISTORY: SMALL BOWEL FOLLOW UP IMAGE. ONE LOWER IMAGE AND ONE UPPER COMPARISON: Study earlier the same day. Nasogastric tube has been placed since the prior study. There is continued distention of small bowel loops with high density diluted oral contrast. Less distention of the stomach. Consistent with a high -grade small bowel obstruction at unknown level. Fecal impaction in the rectum. XR/XR KUB [id number] IMPRESSION: 1. Interval placement of nasogastric tube since the prior study with decompres jeannette of the stomach. 2. Continued marked fluid and dilute oral contrast dilatation of small bowel l oops consistent with a high-grade obstruction.
--- NOTE | 2022-05-21 | FL_ITS ---
WS: [email or web address] FL guided injection [id number] REASON FOR EXAM: SBO, LOOKING FOR CYSTOCELE, FLUOROSCOPY TIME: 0min [id number] # OF SPOT FILMS: 2 FINDINGS: The ostomy bag was disc connected from the ostomy site. The patient's urine ostomy was cannulated with a small Hernandez catheter. Injection of contrast filled a loop of small bowel both ureters were refluxed with reflux on the right opacifying the right renal p adia and collecting system. Multiple calculi within the right kidney and moderate hydronephrosis. As much contrast as possible was aspirated leading approximately 10 mL of contrast. Procedure was well tolerated and no complication identified. FL/FL Ileo Loopogram [id number] IMPRESSION: The examination reveals bilateral ureteral anastomosis with a loop of bowel whi ch extends to the skin is an ostomy site for the drainage of urine.
[2022-05-21] MEDS: cefepime 2,000 MG in sodium chloride 0.9% (plus) 50 ML 100 MG IV ×3 (01:59→17:20)
--- NOTE | 2022-05-21 04:26 | PC.NURSE ---
Dr Hebert notified of BP of 180s/90s
[2022-05-21 05:21] LABS: Basophils % 0.2 %; Eosinophils % 0.2 %; Hematocrit 36.1 % (37.0-47.0); Hemoglobin 11.4 g/dL (11.5-15.3); Lymphocytes # 1.6 10^3/uL (0.8-4.8); Lymphocytes % 19.1 %; Mean Corpuscular HGB Conc 31.6 g/dL (30.0-36.0); Mean Corpuscular Hemoglobin 30.7 pg (28.0-34.0); Mean Corpuscular Volume 97.3 fl (81-99); Mean Platelet Volume 9.3 fL (7.4-10.4); Monocytes # 1.1 10^3/uL (0.2-0.9); Monocytes % 12.2 %; Neutrophils # 5.82 10^3/uL (1.8-7.7); Neutrophils % 67.8 %; Nucleated Red Blood Cells % 0 %; Platelet Count 575 10^3/cmm (130-400); Red Blood Count 3.71 10^6/uL (4.1-5.3); Red Cell Distribution Width 12.9 % (12.1-15.1); White Blood Count 8.6 10^3/uL (4.0-10.0)
[2022-05-21] MEDS: sodium chloride 0.9% 1,000 ML 75 ML IV ×2 (05:41→18:33)
[2022-05-21 05:48] LABS: Alanine Aminotransferase 30 U/L (0-33); Albumin Level 3.4 g/dL (3.5-5.2); Alkaline Phosphatase 72 U/L (35-105); Anion Gap 17.8 (5-19); Aspartate Amino Transferase 42 U/L (0-32); Blood Urea Nitrogen 13 mg/dL (6-20); Calcium 8.7 mg/dL (8.5-10.5); Carbon Dioxide 20 mmol/L (22-29); Chloride 111 mmol/L (98-107); Globulin 4.8 g/dL (1.3-4.6); Glomerular Filtration Rate 233.6 mL/min (90-130); Glucose 98 mg/dL (65-115); Osmolality Calculated 302 mOsm/kg (285-295); Sodium 146 mmol/L (136-145); Total Bilirubin 0.4 mg/dL (0.15-1.2); Total Protein 8.2 g/dL (6.6-8.7)
--- NOTE | 2022-05-21 06:15 | PC.NURSE ---
Dr Hebert contacted regarding critical potassium of 2.8, no new orders received at this time.
[2022-05-21 06:16] LABS: Creatinine Clr Calc Pharmacy 242.7246; Potassium 2.8 mmol/L (3.5-5.1)
--- NOTE | 2022-05-21 06:21 | PC.NURSE ---
Dr Hebert instructed to give 40 Krider due to critical potassium. Order put in.
[2022-05-21] MEDS: lidocaine 1% 5 ML in potassium chloride premix 100 ML 26.25 ML IV (06:38)
[2022-05-21] MEDS: labetalol 5 mg/mL SDV 20mL 10 MG IVP ×2 (06:40→17:25)
--- NOTE | 2022-05-21 07:00 | FL_ITS ---
WS: [id number] FL small bowel [place] gastro [id number] REASON FOR EXAM: PSBO FLUOROSCOPY TIME: 0min [id number] # OF SPOT FILMS: 4 FINDINGS: An initial 80 mL of Gastrografin with 40 mL of thin barium was administered into the stomach via the nasogastric tube. Following following this a chaser of the additional 30 mL of Gastrografin was inj ected through the nasogastric tube. A 5 minute film was obtained to ensure the contrast was leaving the stomach and entering the small oma wel. At 5 minutes contrast had began to opacify multiple dilated small bowel loops beyond the ligamen t of Treitz. The stomach and duodenum were not significantly dilated. And abdomen film was obtained at 1 hour and 20 minutes and at 3 hours and 10 minutes. The contrast mejia s progressed into multiple dilated loops of small bowel. Loops are larger more distally. The contrast density fading due to the stasis in the small bowel loops and reabsorption of the water- soluble contrast and it may be difficult to determine when the contrast reaches the colon. An portable abdomen film for 8:00 PM this evening has been ordered. Note the bandlike area of more dense contrast seen in the right abdomen is within the urine ostomy ba g from the previous retrograde study of the presumed ileal conduit. FL/FL small bowel FT gastro [id number] IMPRESSION: Contrast opacifies multiple dilated small bowel loops, loops becoming larger mo re distally. Contrast has not reached the colon after an hour and 20 minutes.
[2022-05-21] MEDS: enoxaparin 40 mg/0.4 mL Syringe SUBCUT (09:46)
[2022-05-21] MEDS: polyethylene glycol 3350 Pkt 17 gm PO (09:46)
[2022-05-21] MEDS: ondansetron 2 mg/ML SDV 2 mL 4 MG IVP ×2 (09:46→16:11)
[2022-05-21] MEDS: lactulose oral liq 20 gm/30 mL UDC PO ×2 (09:46→21:04)
[2022-05-21] MEDS: levETIRAcetam 500 mg Tablet 1000 MG PO ×2 (09:47→17:23)
[2022-05-21] MEDS: quetiapine 100 mg Tablet PO ×2 (09:48→17:23)
[2022-05-21] MEDS: gabapentin 300 mg Capsule PO ×3 (09:48→21:05)
[2022-05-21] MEDS: pantoprazole DR 40 mg Tablet PO (09:48)
[2022-05-21] MEDS: venlafaxine ER (24HR) 150 mg Capsule PO (09:48)
[2022-05-21] MEDS: sennosides-docusate Tablet 1 TAB PO ×2 (09:48→17:23)
--- NOTE | 2022-05-21 12:11 | FL_ITS ---
WS: [email or web address] FL guided injection [id number] REASON FOR EXAM: SBO, LOOKING FOR CYSTOCELE, FLUOROSCOPY TIME: 0min [id number] # OF SPOT FILMS: 2 FINDINGS: The ostomy bag was disc connected from the ostomy site. The patient's urine ostomy was cannulated with a small Hernandez catheter. Injection of contrast filled a loop of small bowel both ureters were refluxed with reflux on the right opacifying the right renal p adia and collecting system. Multiple calculi within the right kidney and moderate hydronephrosis. As much contrast as possible was aspirated leading approximately 10 mL of contrast. Procedure was well tolerated and no complication identified.
[2022-05-21] MEDS: diatrizoate meglumine 120 mL Sol PO (12:54)
--- NOTE | 2022-05-21 15:25 | PM.PN ---
Subjective Subjective: Patient seen and examined. She still reports no abdominal pain and to passing flatus and having bowel movements. Currently completing a small bowel follow-through Vitals/I&O/Wt Last Vital Signs Temp 98.1 F 05/21/22 12:00 Pulse 74 05/21/22 12:00 Resp 16 05/21/22 12:00 BP 171/81 05/21/22 12:00 Pulse Ox 98 05/21/22 12:00 O2 Del Method 05/21/22 12:00 05/21/22 05/21/22 05/21/22 06:59 14:59 22:59 Intake Total 968.75 / 2068.75 155 / 155 Output Total 1950 / 2660 Balance -981.25 / -591.25 155 / 155 Physical Exam Narrative: General: No acute distress, awake alert and oriented x3 Abdomen: Soft, distended, nontender, no guarding rebound or masses Data 05/21/22 05:05 05/21/22 05:05 A&P Assessment and plan (1) Constipation: (2) Partial small bowel obstruction: Plan Radiology confirmed today that patient does have an ileal conduit. She will require transfer to a higher level of care due to this, in case she is in need of surgical management. I do not have any surgical experience with ileal conduits IV fluids Small bowel follow-through being performed currently Medical management per hospitalist Attestations Medical Necessity Statement*: Patient requires further nights in the hospital for transfer to higher level of care to manage her partial small bowel obstruction in the setting of an ileal conduit Coding Level of Care Code Acute Code for [facility] Fwd Diagnoses Constipation K59.00 Partial small bowel obstruction K56.600
[2022-05-21] MEDS: morphine 4 mg/mL SDV 1 mL 1 MG IVP (17:26)
--- NOTE | 2022-05-21 18:17 | PM.PN ---
Subjective Subjective: Leukocytosis history of stroke today. She remains afebrile. Trending to be hypertensive has not received any doses of labetalol yet today. Completed small bowel series today which showed multiple dilated small bowel loops becoming larger distally. Contrast does not reach the colon after an hour and 20 minutes. Patient continues to complain of nausea. NGT is in place with output of about 2 L. Medications: Reviewed: Yes Medication Review Details: Generic Name Dose Route Start Last Admin Trade Name Freq PRN Reason Stop Dose Admin Acetaminophen 650 mg 05/12/22 21:04 05/14/22 23:32 Acetaminophen 32 5 Mg Tablet PO 650 mg Q6H PRN Administration Mild/Mod Pain Or Temp >/= 101 Baclofen 40 mg 05/12/22 23:15 05/15/22 20:11 Baclofen 10 Mg T ablet PO 40 mg BEDTIME BIJAN Administration Enoxaparin Sodium 40 mg 05/14/22 08:30 05/15/22 08:10 Enoxaparin 40 Mg /0.4 Ml Syringe SUBCUT 40 mg Q24H BIJAN Administration Gabapentin 300 mg 05/13/22 09:00 05/15/22 20:12 Gabapentin 300 M g Capsule PO 300 mg TID BIJAN Administration Meropenem 500 mg/ Sodium 50 mls @ 100 mls/ hr 05/14/22 08:30 05/16/22 01:21 Chloride IV Infused Q8H BIJAN Infusion Vancomycin HCl 1,0 00 mg/ 250 mls @ 250 mls /hr 05/15/22 11:15 05/16/22 04:44 Sodium Chloride IV Infused Q8H BIJAN Infusion Protocol As Directed Ibuprofen 400 mg 05/12/22 21:04 05/13/22 22:57 Ibuprofen 200 Mg Tablet PO 400 mg Q8H PRN Administration mild/mod pain or temp >/= 101 Lacosamide 200 mg 05/13/22 09:00 05/15/22 18:10 Lacosamide 50 Mg Tablet PO 200 mg BID BIJAN Administration Lactulose 20 gm 05/12/22 21:15 05/15/22 20:15 Lactulose Oral L iq 20 Gm/30 Ml Udc PO 20 gm Q12H BIJAN Administration Protocol Levetiracetam 1,000 mg 05/13/22 09:00 05/15/22 18:10 Levetiracetam 50 0 Mg Tablet PO 1,000 mg BID BIJAN Administration Non-Formulary Medi cation 1 gm 05/13/22 09:00 05/15/22 18:42 Methenamine Gertrude urate [Hiprex] PO Not Given BID BIJAN Ondansetron HCl 4 mg 05/12/22 21:04 05/13/22 10:53 Ondansetron 2 Mg /Ml Sdv 2 Ml IVP 4 mg Q8H PRN Administration vomiting, or N/V if npo Pantoprazole Sodiu m 40 mg 05/13/22 09:00 05/15/22 08:[address] 40 Mg Tablet PO 40 mg DAILY BIJAN Administration Polyethylene Glyco l 17 gm 05/13/22 09:00 05/15/22 08:09 Polyethylene Gly col 3350 Pkt 17 Gm PO Not Given DAILY BIJAN Quetiapine Fumarat e 100 mg 05/13/22 09:00 05/15/22 18:10 Quetiapine 100 M g Tablet PO 100 mg BID BIJAN Administration Senna/Docusate Sod ium 1 tab 05/13/22 09:00 05/15/22 18:42 Sennosides-Docus ate Tablet PO Not Given BID BIJAN Venlafaxine HCl 150 mg 05/13/22 08:00 05/15/22 08:08 Venlafaxine Er ( 24hr) 150 Mg Capsu le PO 150 mg DAILY@08 BIJAN Administration Vitals/I&O/Wt Last Vital Signs Temp 98.2 F 05/21/22 16:00 Pulse 83 05/21/22 16:00 Resp 18 05/21/22 17:26 BP 180/90 05/21/22 16:00 Pulse Ox 96 05/21/22 16:00 O2 Del Method 05/21/22 16:00 05/21/22 05/21/22 05/21/22 06:59 14:59 22:59 Intake Total 968.75 / 2068.75 155 / 155 50 / 205 Output Total 1950 / 2660 800 / 800 Balance -981.25 / -591.25 155 / 155 -750 / -595 Physical Exam Narrative: General: No acute distress, AO x3 HEENT: PERRLA, pupils bilaterally equal and reactive, pallors not present Chest: Normal vesicular breath sounds, no added sounds, equal good air entry bilaterally CVS: S1-S2 regular, no murmurs, no tachycardia, no gallops, no rubs Abdomen: Soft, nontender, no organomegaly, bowel sounds present Data 05/21/22 05:05 05/21/22 05:05 A&P Assessment and plan (1) History of urostomy: (2) GERD (gastroesophageal reflux disease): (3) Hypertension: (4) Depression: (5) Anxiety: (6) Seizure: (7) Multiple sclerosis: (8) Paraplegia: (9) Staghorn renal calculus: (10) UTI (urinary tract infection): (11) Constipation: (12) Decubitus ulcer, heel, right, unstageable: (13) Generalized epilepsy: Plan 52-year-old female with past medical history of multiple sclerosis, anxiety depression cerebellar tremor, hypertension seizure disorder renal calculi, urinary diversion with ileal conduit, frequent UTI was brought in with chief complaint of abdominal pain nausea vomiting, as well as fever. 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 # small bowel obstruction with transition point in the right anterior hemiabdomen Seen on CT imaging on May 17, 2022. CT of the abdomen was performed and showed a new small bowel obstruction with transition point as noted above. Ng was removed yesterday with starting clears however patient is vomting again today, will obtain acute abdomen series now. Add scopolamine patch as reglan and zofran not adequate Would monitor with conservative measures for now. # UTI Patient has a urostomy, history of staghorn calculi and complicated UTIs. CT abdomen 05/17 makes note of right-sided mild hydronephrosis. Discussed with urology and appreciate recommendations. No current intervention indicated from a urology perspective as findings are chronic. Urine culture from this admission growing Enterobacter cloacae, wound cx from foot ulcer with Pseudomonas and Klebsiella. Patient colonized with multiple gram negatives. Abx course meropenem 500mg iv q8h 05/12-05/17---> cefepime 2 g iv q8h on 05/18 in keeping with cx results, dosing optimized to cover Pseudomonas. Afberile since 05/16. Plan to complete total 10- 14 day course for complicated UTI # RLE patchy redness now resolved Lower extremity Doppler negative for DVT. DVT prophylaxis: On subcu Lovenox CODE STATUS full code Attestations Medical Necessity Statement*: needs continued hospitalization for SBO Coding Level of Care Code Acute Code for [facility] Fwd Diagnoses History of urostomy Z98.890 GERD (gastroesophageal reflux disease) K21.9 Hypertension I10 Depression F32.9 Anxiety F41.9 Seizure R56.9 Multiple sclerosis G35 Paraplegia G82.20 Staghorn renal calculus N20.0 UTI (urinary tract infection) N39.0 Constipation K59.00 Decubitus ulcer, heel, right, unstageable L89.610 Generalized epilepsy G40.309
[2022-05-21] MEDS: baclofen 10 mg Tablet 40 MG PO (21:05)
[2022-05-22] VITALS (7 sets, daily range): BP systolic 146–188; BP diastolic 67–90; PULSE 62–90; RESP 16–18; TEMP 36.7–37.1; O2SAT 92–96
[2022-05-22] MEDS: labetalol 5 mg/mL SDV 20mL 10 MG IVP (01:55)
[2022-05-22] MEDS: cefepime 2,000 MG in sodium chloride 0.9% (plus) 50 ML 100 MG IV ×3 (02:03→17:02)
[2022-05-22 05:40] LABS: Basophils % 0.2 %; Hematocrit 37.6 % (37.0-47.0); Hemoglobin 11.8 g/dL (11.5-15.3); Lymphocytes # 2.2 10^3/uL (0.8-4.8); Lymphocytes % 21.7 %; Mean Corpuscular HGB Conc 31.4 g/dL (30.0-36.0); Mean Corpuscular Hemoglobin 30.8 pg (28.0-34.0); Mean Corpuscular Volume 98.2 fl (81-99); Mean Platelet Volume 10.3 fL (7.4-10.4); Monocytes # 1.3 10^3/uL (0.2-0.9); Monocytes % 13.3 %; Neutrophils # 6.45 10^3/uL (1.8-7.7); Neutrophils % 64.3 %; Nucleated Red Blood Cells % 0 %; Platelet Count 682 10^3/cmm (130-400); Red Blood Count 3.83 10^6/uL (4.1-5.3); Red Cell Distribution Width 13.2 % (12.1-15.1)
[2022-05-22 06:05] LABS: Alanine Aminotransferase 68 U/L (0-33); Albumin Level 3.8 g/dL (3.5-5.2); Alkaline Phosphatase 84 U/L (35-105); Anion Gap 19.1 (5-19); Aspartate Amino Transferase 79 U/L (0-32); Blood Urea Nitrogen 18 mg/dL (6-20); Calcium 9.1 mg/dL (8.5-10.5); Carbon Dioxide 22 mmol/L (22-29); Chloride 114 mmol/L (98-107); Globulin 4.4 g/dL (1.3-4.6); Glomerular Filtration Rate 167.6 mL/min (90-130); Glucose 88 mg/dL (65-115); Osmolality Calculated 315 mOsm/kg (285-295); Potassium 3.1 mmol/L (3.5-5.1); Sodium 152 mmol/L (136-145); Total Bilirubin 0.4 mg/dL (0.15-1.2); Total Protein 8.2 g/dL (6.6-8.7)
[2022-05-22 06:10] LABS: Creatinine Clr Calc Pharmacy 182.0435
--- NOTE | 2022-05-22 08:28 | XRR_ITS ---
PROCEDURE INFORMATION: Exam: XR Abdomen Exam date and time: 05/22/2022 8:35 AM Age: 52 years old Clinical indication: Other: Follow up sbo , ngt TECHNIQUE: Imaging protocol: Radiologic exam of the abdomen. Views: Frontal supine view of the abdomen. 1 View. COMPARISON: CR (ABDOMEN, ) 05/21/2022 7:50 PM FINDINGS: Gastrointestinal tract: A large amount of fecal material is noted in the distal colon. A single dilated small bowel loop is suggested in the right lower abdomen. There is re-demonstration of bilateral renal calculi and a small amount of residual enteric contrast material. A nasogastric tube is seen with tip projecting in the proximal stomach. Surgical clips are noted in the right upper quadrant. The right hemiabdomen is not fully included on the image.. Bones/joints: No significant osseous abnormality. XR/XR KUB portable [id number] IMPRESSION: 1. Large amount of colonic fecal material with partially visualized dilated small bowel, possible ileus. Follow-up is recommended. 2. The nasogastric tube is projecting in the proximal gastric lumen and could be further advanced for improved positioning.
[2022-05-22] MEDS: polyethylene glycol 3350 Pkt 17 gm PO (08:30)
[2022-05-22] MEDS: enoxaparin 40 mg/0.4 mL Syringe SUBCUT (08:31)
[2022-05-22] MEDS: venlafaxine ER (24HR) 150 mg Capsule PO (08:32)
[2022-05-22] MEDS: levETIRAcetam 500 mg Tablet 1000 MG PO ×2 (08:32→17:03)
[2022-05-22] MEDS: quetiapine 100 mg Tablet PO ×2 (08:32→17:03)
[2022-05-22] MEDS: sennosides-docusate Tablet 1 TAB PO ×2 (08:32→17:03)
[2022-05-22] MEDS: pantoprazole DR 40 mg Tablet PO (08:32)
[2022-05-22] MEDS: gabapentin 300 mg Capsule PO ×3 (08:32→20:36)
--- NOTE | 2022-05-22 09:21 | PM.PN ---
Subjective Subjective: This morning's abdominal series shows ileus. No air fluid levels seen. She continues to pass flatus and have bowel movements. Denies any abdominal pain or nausea Vitals/I&O/Wt Last Vital Signs Temp 98.0 F 05/22/22 08:00 Pulse 77 05/22/22 08:00 Resp 18 05/22/22 08:00 BP 188/67 05/22/22 08:00 Pulse Ox 94 05/22/22 08:00 O2 Del Method 05/22/22 08:00 05/21/22 05/22/22 05/22/22 22:59 06:59 14:59 Intake Total 1015 / 1170 1050 / 2220 Output Total 800 / 800 1050 / 1850 Balance 215 / 370 0 / 370 Physical Exam Narrative: General: No acute distress, awake alert and oriented x3 Abdomen: Soft, distended, nontender, no guarding rebound or masses Data 05/22/22 04:29 05/22/22 04:29 Micro: Microbiology 05/17/22 04:35 Blood Culture - Final Blood NO GROWTH AFTER 5 DAYS 05/17/22 04:31 Blood Culture - Preliminary Blood A&P Assessment and plan (1) Constipation: (2) Partial small bowel obstruction: Plan Radiology confirmed today that patient does have an ileal conduit. She will require transfer to a higher level of care due to this, in case she is in need of surgical management. I do not have any surgical experience with ileal conduits IV fluids We are going to trial clear liquids again. Discontinue NG tube. N.p.o. at midnight Transfer is the best option for her, but if she does not get transferred by tomorrow and vomits again, she will need undergo diagnostic laparoscopy, possible exploratory laparotomy, possible bowel resection The risk and benefits of the procedure, including but not limited to, bleeding, infection, scar, numbness, pain, damage to surrounding structures, anastomotic leak, were explained to the patient. She is understanding of the risks and wishes to proceed. Medical management per hospitalist Attestations Medical Necessity Statement*: Patient requires multiple more nights in the hospital due to her bowel obstruction and possible need for surgery Coding Level of Care Code Acute Code for [facility] Fwd Diagnoses Constipation K59.00 Partial small bowel obstruction K56.600
[2022-05-22] MEDS: lactulose oral liq 20 gm/30 mL UDC PO ×2 (09:53→20:36)
[2022-05-22] MEDS: sodium chloride 0.9% 1,000 ML 75 ML IV (09:53)
[2022-05-22] MEDS: Fleet Enema 133 mL Enema PR (09:53)
--- NOTE | 2022-05-22 15:38 | P.PN_ITS ---
Subjective Subjective: Patient reports bowel movements and passing gas. She denies abdominal pain, nausea, emesis, fevers or chills. Medications: Reviewed: Yes Vitals/I&O/Wt Last Vital Signs Temp 98.7 F 05/22/22 12:00 Pulse 73 05/22/22 12:00 Resp 18 05/22/22 12:00 BP 159/75 05/22/22 12:00 Pulse Ox 96 05/22/22 12:00 O2 Del Method 05/22/22 12:00 05/22/22 05/22/22 05/22/22 06:59 14:59 22:59 Intake Total 1050 / 2220 290 / 290 Output Total 1050 / 1850 Balance 0 / 370 290 / 290 Physical Exam Narrative: General: Patient is awake and alert. Head: Normocephalic. Atraumatic. EOM intact. Neck: No JVD. Cardiovascular: RRR. No gallops. No murmurs. No peripheral edema. Lungs: Clear to auscultation, no use of accessory muscles, no crackles or wheezes. Skin: No jaundice. No rashes. Abdomen: Normal bowel sounds, abdomen soft and nontender. Genito Urinary: Genital exam not performed since complaints not related. Rectal: Rectal exam not performed since no symptoms indicated blood loss. Extremities: No cyanosis or clubbing. Musculoskeletal: Normal range of motion, no swollen or erythematous joints. Neurological: Moves all 4 extremities. No myoclonus. Data 05/22/22 04:29 05/22/22 04:29 Micro: Microbiology 05/17/22 04:35 Blood Culture - Final Blood NO GROWTH AFTER 5 DAYS 05/17/22 04:31 Blood Culture - Preliminary Blood A&P Assessment and plan (1) History of urostomy: (2) GERD (gastroesophageal reflux disease): (3) Hypertension: (4) Depression: (5) Anxiety: (6) Seizure: (7) Multiple sclerosis: (8) Paraplegia: (9) Staghorn renal calculus: (10) UTI (urinary tract infection): (11) Constipation: (12) Decubitus ulcer, heel, right, unstageable: (13) Generalized epilepsy: Plan 52F [employer] patient with a past medical history of multiple sclerosis, anxiety depression cerebellar tremor, hypertension seizure disorder renal calculi, urinary diversion with ileal conduit, frequent UTI was brought in with chief complaint of abdominal pain, nausea, vomiting, and fever. Small bowel obstruction with transition point in the right anterior hemiabdomen Ileus Seen on CT imaging on May 17, 2022. CT of the abdomen showed a new small bowel obstruction with transition point as noted above General surgery following Awaiting transfer to outside hospital UTI Patient has a urostomy, history of staghorn calculi and complicated UTIs CT abdomen 05/17 makes note of right-sided mild hydronephrosis Urology evaluated, no urologic intervention required Urine culture w/ Enterobacter cloacae Wound cx from foot ulcer with Pseudomonas and Klebsiella Abx course meropenem 500mg iv q8h 05/12-05/17---> cefepime 2 g iv q8h on 05/18 in keeping with cx results, dosing optimized to cover Pseudomonas. Plan to complete total 10- 14 day course for complicated UTI RLE patchy redness, resolved Lower extremity Doppler negative for DVT DVT ppx: Heparin Code Status: Full Code Attestations Medical Necessity Statement*: Patient requires ongoing hospitalization for serial abdominal exams, general surgery following, IV antibiotics, and management of small bowel obstruction. Coding Level of Care Code Acute Code for [facility] Fwd Diagnoses History of urostomy Z98.890 GERD (gastroesophageal reflux disease) K21.9 Hypertension I10 Depression F32.9 Anxiety F41.9 Seizure R56.9 Multiple sclerosis G35 Paraplegia G82.20 Staghorn renal calculus N20.0 UTI (urinary tract infection) N39.0 Constipation K59.00 Decubitus ulcer, heel, right, unstageable L89.610 Generalized epilepsy G40.309
--- NOTE | 2022-05-22 16:22 | XRR_ITS ---
PROCEDURE INFORMATION: Exam: XR Chest Exam date and time: 05/22/2022 5:50 PM Age: 52 years old Clinical indication: Device placement; Ng tube; Additional info: Ngt placement confirmation TECHNIQUE: Imaging protocol: Radiologic exam of the chest. Views: 1 view. COMPARISON: CR (CHEST, ) 05/12/2022 6:28 PM FINDINGS: Tubes, catheters and devices: Enteric tube tip is beyond the proximal portion of the stomach and is not seen because it is below the inferior margin of the film. Lungs: Mildly hyperaerated lungs consistent with deep inspiratory effort vs reactive airway disease vs mild COPD . Pleural spaces: Unremarkable. No pleural effusion. No pneumothorax. Heart/Mediastinum: Unremarkable. No cardiomegaly. Bones/joints: Unremarkable. XR/XR chest 1V portable [id number] IMPRESSION: 1. Enteric tube tip is beyond the proximal portion of the stomach and is not seen because it is below the inferior margin of the film. 2. Mildly hyperaerated lungs consistent with deep inspiratory effort vs reactive airway disease vs mild COPD .
[2022-05-22] MEDS: metoclopramide 5 mg/mL SDV 2 mL IVP (19:44)
[2022-05-22] MEDS: baclofen 10 mg Tablet 40 MG PO (20:35)
[2022-05-23] MEDS: cefepime 2,000 MG in sodium chloride 0.9% (plus) 50 ML 100 MG IV ×3 (02:07→16:35)
[2022-05-23 03:21] VITALS: BP 167/98; PULSE 85; RESP 18; TEMP 36.7; O2SAT 93
[2022-05-23 05:11] LABS: Basophils % 0.3 %; Eosinophils % 0.2 %; Hematocrit 43.7 % (37.0-47.0); Hemoglobin 13.2 g/dL (11.5-15.3); Lymphocytes # 2.6 10^3/uL (0.8-4.8); Lymphocytes % 19.6 %; Mean Corpuscular HGB Conc 30.2 g/dL (30.0-36.0); Mean Corpuscular Hemoglobin 30.3 pg (28.0-34.0); Mean Corpuscular Volume 100.5 fl (81-99); Mean Platelet Volume 9.4 fL (7.4-10.4); Monocytes # 1.8 10^3/uL (0.2-0.9); Monocytes % 13.6 %; Neutrophils # 8.54 10^3/uL (1.8-7.7); Neutrophils % 65.8 %; Nucleated Red Blood Cells % 0 %; Platelet Count 696 10^3/cmm (130-400); Red Blood Count 4.35 10^6/uL (4.1-5.3); Red Cell Distribution Width 13.3 % (12.1-15.1)
[2022-05-23 05:28] LABS: Alanine Aminotransferase 101 U/L (0-33); Albumin Level 3.6 g/dL (3.5-5.2); Alkaline Phosphatase 101 U/L (35-105); Anion Gap 14.8 (5-19); Aspartate Amino Transferase 84 U/L (0-32); Blood Urea Nitrogen 22 mg/dL (6-20); Carbon Dioxide 23 mmol/L (22-29); Chloride 116 mmol/L (98-107); Globulin 5.1 g/dL (1.3-4.6); Glomerular Filtration Rate 129.6 mL/min (90-130); Glucose 103 mg/dL (65-115); Osmolality Calculated 316 mOsm/kg (285-295); Sodium 151 mmol/L (136-145); Total Bilirubin 0.5 mg/dL (0.15-1.2); Total Protein 8.7 g/dL (6.6-8.7)
[2022-05-23 05:49] LABS: Potassium 2.8 mmol/L (3.5-5.1)
[2022-05-23] MEDS: sodium chloride 0.9% 1,000 ML 75 ML IV ×2 (05:56→20:13)
[2022-05-23] MEDS: lidocaine 1% 5 ML in potassium chloride premix 100 ML 26.25 ML IV (06:47)
[2022-05-23 08:00] VITALS: BP 168/90; PULSE 78; RESP 18; TEMP 37.1; O2SAT 97
--- NOTE | 2022-05-23 08:25 | W.PM.OPSUD ---
Surgery/Procedure H&P Update DATE OF PROCEDURE: May 23, 2022 DATE H&P PERFORMED: 05/23/22 PREOP DIAGNOSIS: Gallstone pancreatitis PLANNED PROCEDURE: Operation Date: 05/23/22 09:20 Proposed Procedures p Exploratory Laparotomy- Diagnostic Lap, poss expl lap, possible bowel resection(Not Applicable) - Aakash Presley DO
[2022-05-23] MEDS: quetiapine 100 mg Tablet PO ×2 (09:53→16:56)
[2022-05-23] MEDS: gabapentin 300 mg Capsule PO ×3 (09:53→20:43)
[2022-05-23] MEDS: levETIRAcetam 500 mg Tablet 1000 MG PO ×2 (09:53→16:55)
[2022-05-23] MEDS: pantoprazole DR 40 mg Tablet PO (09:53)
[2022-05-23] MEDS: sennosides-docusate Tablet 1 TAB PO ×2 (09:53→16:55)
[2022-05-23] MEDS: venlafaxine ER (24HR) 150 mg Capsule PO (09:53)
[2022-05-23] MEDS: enoxaparin 40 mg/0.4 mL Syringe SUBCUT (09:54)
[2022-05-23] MEDS: lactulose oral liq 20 gm/30 mL UDC PO ×2 (09:54→20:43)
--- NOTE | 2022-05-23 10:30 | P.PN_ITS ---
Subjective Subjective: Patient vomited with clear liquids yesterday and an NG tube was placed again. She continues to pass flatus and have bowel movements. Denies any abdominal pain. She is awaiting transfer to [facility] hospital Vitals/I&O/Wt Last Vital Signs Temp 98.7 F 05/23/22 08:00 Pulse 78 05/23/22 08:00 Resp 18 05/23/22 08:00 BP 168/90 05/23/22 08:00 Pulse Ox 97 05/23/22 08:00 O2 Del Method 05/23/22 08:00 05/22/22 05/23/22 05/23/22 22:59 06:59 14:59 Intake Total 50 / 340 1170 / 1510 Output Total 1200 / 1200 2200 / 3400 Balance -1150 / -860 -1030 / -1890 Physical Exam Narrative: General: No acute distress, awake alert and oriented x3 Abdomen: Soft, distended, nontender, no guarding rebound or masses Data 05/23/22 05:02 05/23/22 05:02 Micro: Microbiology 05/17/22 04:35 Blood Culture - Final Blood NO GROWTH AFTER 5 DAYS A&P Assessment and plan (1) Constipation: (2) Partial small bowel obstruction: Plan She has not gone 5 days without very significant oral intake Awaiting transfer to [facility] hospital N.p.o./NG tube She has an ileoconduit Medical management per hospitalist Attestations Medical Necessity Statement*: Patient requires multiple more nights in the hospital for nasogastric suctioning and transfer to a higher level of care Coding Level of Care Code Acute Code for [facility] Fwd Diagnoses Constipation K59.00 Partial small bowel obstruction K56.600
[2022-05-23] MEDS: scopolamine 1.5 Patch 1 PATCH TRANSDERMA (11:31)
[2022-05-23 12:00] VITALS: BP 158/90; PULSE 85; RESP 18; TEMP 36.6; O2SAT 96
--- NOTE | 2022-05-23 15:07 | PM.PN ---
Subjective Subjective: Patient reports she continues to pass gas. She denies abdominal pain, nausea, emesis, fevers or chills. Discussed pending transfer and she gets upset saying she wants to have surgery here or she is going [facility] if not in the OR within 2 hours. Medications: Reviewed: Yes Vitals/I&O/Wt Last Vital Signs Temp 97.8 F 05/23/22 12:00 Pulse 85 05/23/22 12:00 Resp 18 05/23/22 12:00 BP 158/90 05/23/22 12:00 Pulse Ox 96 05/23/22 12:00 O2 Del Method 05/23/22 12:00 05/23/22 05/23/22 05/23/22 06:59 14:59 22:59 Intake Total 1170 / 1510 155 / 155 Output Total 2200 / 3400 1000 / 1000 Balance -1030 / -1890 -845 / -845 Physical Exam Narrative: General: Patient is awake and alert. Agitated. Head: Normocephalic. Atraumatic. EOM intact. Neck: No JVD. Cardiovascular: RRR. No gallops. No murmurs. No peripheral edema. Lungs: Clear to auscultation, no use of accessory muscles, no crackles or wheezes. Skin: No jaundice. No rashes. Abdomen: Normal bowel sounds, abdomen soft and nontender. Urostomy. Genito Urinary: Genital exam not performed since complaints not related. Rectal: Rectal exam not performed since no symptoms indicated blood loss. Extremities: No cyanosis or clubbing. Musculoskeletal: Normal range of motion, no swollen or erythematous joints. Neurological: No myoclonus. Data 05/23/22 05:02 05/23/22 05:02 A&P Assessment and plan (1) Small bowel obstruction: Transition point in the right anterior hemiabdomen Complicated by Ileus Imaging reviewed Attempts of clear liquid diet have led to recurrent emesis Continue bowel rest Continue NG suction Continue IV fluids General surgery following, attempting to transfer to [facility] due to complex surgical history including ileal conduit Check with [facility], [facility], [facility], [facility], and [facility], all with no beds (2) UTI (urinary tract infection): Urology evaluated, no urologic intervention required Urine culture w/ Enterobacter cloacae Wound cx from foot ulcer with Pseudomonas and Klebsiella Wound cx from buttock with Corynebacterium specie Abx course meropenem 500mg iv q8h 05/12-05/17---> cefepime 2 g iv q8h on 05/18 in keeping with cx results Dosing optimized to cover Pseudomonas Plan to complete total 10- 14 day course for complicated UTI (3) History of urostomy: Evaluate by urology, Dr Goncalves Routine ostomy care (4) GERD (gastroesophageal reflux disease): Continue pantoprazole (5) Hypertension: Labetalol PRN (6) Depression: Continue Effexor (7) Anxiety: Continue Effexor (8) Seizure: Continue Keppra (9) Multiple sclerosis: Continue supportive care (10) Paraplegia: Continue Baclofen (11) Staghorn renal calculus: Evaluate by urology, Dr Goncalves Routine ostomy care (12) Constipation: Continue docusate and senna (13) Decubitus ulcer, heel, right, unstageable: Continue wound care (14) Generalized epilepsy: Continue Keppra Plan DVT ppx: Heparin Code Status: Full Code Attestations Medical Necessity Statement*: Patient requires ongoing hospitalization for serial abdominal exams, general surgery following, IV antibiotics, and management of small bowel obstruction. Coding Level of Care Code Acute Code for Chg Fwd Diagnoses Small bowel obstruction K56.609 UTI (urinary tract infection) N39.0 History of urostomy Z98.890 GERD (gastroesophageal reflux disease) K21.9 Hypertension I10 Depression F32.9 Anxiety F41.9 Seizure R56.9 Multiple sclerosis G35 Paraplegia G82.20 Staghorn renal calculus N20.0 Constipation K59.00 Decubitus ulcer, heel, right, unstageable L89.610 Generalized epilepsy G40.309
[2022-05-23 16:00] VITALS: BP 166/95; PULSE 96; RESP 18; TEMP 36.3; O2SAT 97
[2022-05-23] MEDS: phenol oral Spray 177 mL 5 SPRAY MUCOUS MEM (16:47)
[2022-05-23 20:00] VITALS: BP 162/98; PULSE 97; RESP 16; TEMP 36.7; O2SAT 96
[2022-05-23] MEDS: baclofen 10 mg Tablet 40 MG PO (20:43)
[2022-05-24] VITALS (66 sets, daily range): BP systolic 108–160; BP diastolic 77–106; PULSE 78–105; RESP 8–31; TEMP 36.3–36.9; O2SAT 92–98
[2022-05-24] MEDS: cefepime 2,000 MG in sodium chloride 0.9% (plus) 50 ML 100 MG IV ×3 (01:27→17:26)
--- NOTE | 2022-05-24 05:06 | PC.NURSE ---
TRANSFER CENTER CALL Transfer Center called to say still no bed available for pt [facility]. Will contiue to keep us informed
[2022-05-24] MEDS: venlafaxine ER (24HR) 150 mg Capsule PO (08:07)
[2022-05-24] MEDS: pantoprazole DR 40 mg Tablet PO (08:07)
[2022-05-24] MEDS: levETIRAcetam 500 mg Tablet 1000 MG PO ×2 (08:07→17:27)
[2022-05-24] MEDS: lactulose oral liq 20 gm/30 mL UDC PO ×2 (08:07→21:36)
[2022-05-24] MEDS: sennosides-docusate Tablet 1 TAB PO ×2 (08:07→17:27)
[2022-05-24] MEDS: gabapentin 300 mg Capsule PO ×2 (08:08→21:36)
[2022-05-24] MEDS: quetiapine 100 mg Tablet PO ×2 (08:08→17:27)
[2022-05-24 09:30] LABS: Basophils # 0.1 10^3/uL (0.0-0.1); Basophils % 0.5 %; Eosinophils % 0.3 %; Hematocrit 49.9 % (37.0-47.0); Hemoglobin 14.9 g/dL (11.5-15.3); Lymphocytes # 2.8 10^3/uL (0.8-4.8); Lymphocytes % 23.7 %; Mean Corpuscular HGB Conc 29.9 g/dL (30.0-36.0); Mean Corpuscular Hemoglobin 30.3 pg (28.0-34.0); Mean Corpuscular Volume 101.4 fl (81-99); Mean Platelet Volume 9.7 fL (7.4-10.4); Monocytes # 1.3 10^3/uL (0.2-0.9); Monocytes % 10.7 %; Neutrophils % 64.5 %; Nucleated Red Blood Cells % 0 %; Platelet Count 684 10^3/cmm (130-400); Red Blood Count 4.92 10^6/uL (4.1-5.3); Red Cell Distribution Width 13.8 % (12.1-15.1); White Blood Count 11.6 10^3/uL (4.0-10.0)
[2022-05-24] MEDS: sodium chloride 0.9% 1,000 ML 75 ML IV (09:36)
[2022-05-24 09:52] LABS: Alanine Aminotransferase 98 U/L (0-33); Albumin Level 3.8 g/dL (3.5-5.2); Alkaline Phosphatase 115 U/L (35-105); Aspartate Amino Transferase 54 U/L (0-32); Blood Urea Nitrogen 30 mg/dL (6-20); Calcium 10.3 mg/dL (8.5-10.5); Carbon Dioxide 22 mmol/L (22-29); Glomerular Filtration Rate 129.6 mL/min (90-130); Glucose 92 mg/dL (65-115); Total Bilirubin 0.6 mg/dL (0.15-1.2); Total Protein 8.8 g/dL (6.6-8.7)
[2022-05-24 10:02] LABS: Chloride 126 mmol/L (98-107); Osmolality Calculated 338 mOsm/kg (285-295); Potassium 3.3 mmol/L (3.5-5.1)
[2022-05-24 10:13] LABS: Anion Gap 16.3 (5-19); Sodium 161 mmol/L (136-145)
[2022-05-24] MEDS: dextrose 5% 1,000 ML 125 ML IV ×2 (10:56→17:25)
[2022-05-24] MEDS: lidocaine 1% 5 ML in potassium chloride premix 100 ML 52.5 ML IV (12:25)
--- NOTE | 2022-05-24 12:49 | PC.NURSE ---
This nurse called [facility] for bed availability update and they are still waiting for an open bed and have no time frame at this time.
--- NOTE | 2022-05-24 14:17 | PC.NURSE ---
Arrived from [facility], patient AO x4, no c/o at this time, denied abdominal pain and nausea
--- NOTE | 2022-05-24 14:59 | P.PN_ITS ---
Subjective Subjective: Patient was seen and examined this morning, NG tube in place, denied any abdominal pain nausea vomiting. Severe hypernatremia this morning, as well as hypokalemic.Normal saline has been discontinued. Medications: Reviewed: Yes Medication Review Details: Generic Name Dose Route Start Last Admin Trade Name Freq PRN Reason Stop Dose Admin Acetaminophen 650 mg 05/12/22 21:04 05/14/22 23:32 Acetaminophen 32 5 Mg Tablet PO 650 mg Q6H PRN Administration Mild/Mod Pain Or Temp >/= 101 Baclofen 40 mg 05/12/22 23:15 05/23/22 20:43 Baclofen 10 Mg T ablet PO 40 mg BEDTIME BIJAN Administration Enoxaparin Sodium 40 mg 05/14/22 08:30 05/24/22 08:02 Enoxaparin 40 Mg /0.4 Ml Syringe SUBCUT Not Given Q24H BIJAN Gabapentin 300 mg 05/13/22 09:00 05/24/22 08:08 Gabapentin 300 M g Capsule PO 300 mg TID BIJAN Administration Cefepime HCl 2,000 mg/ Sodium 50 mls @ 100 mls/ hr 05/18/22 18:00 05/24/22 10:05 Chloride IV Infused Q8H [facility] Infusion Protocol Dextrose 1,000 mls @ 125 m ls/hr 05/24/22 10:45 05/24/22 10:56 D5w IV 125 mls/hr .Q8H BIJAN Administration Ibuprofen 400 mg 05/12/22 21:04 05/13/22 22:57 Ibuprofen 200 Mg Tablet PO 400 mg Q8H PRN Administration mild/mod pain or temp >/= 101 Labetalol HCl 10 mg 05/20/22 20:18 05/22/22 01:55 Labetalol 5 Mg/M l Sdv 20ml IVP 10 mg Q4H PRN Administration HYPERTENSION Lactulose 20 gm 05/12/22 21:15 05/24/22 08:07 Lactulose Oral L iq 20 Gm/30 Ml Udc PO 20 gm Q12H BIJAN Administration Protocol Levetiracetam 1,000 mg 05/13/22 09:00 05/24/22 08:07 Levetiracetam 50 0 Mg Tablet PO 1,000 mg BID BIJAN Administration Metoclopramide HCl 5 mg 05/17/22 14:29 05/22/22 19:44 Metoclopramide 5 Mg/Ml Sdv 2 Ml IVP 5 mg Q6H PRN Administration NAUSEA AND VOMITI NG Ondansetron HCl 4 mg 05/12/22 21:04 05/21/22 16:11 Ondansetron 2 Mg /Ml Sdv 2 Ml IVP 4 mg Q8H PRN Administration vomiting, or N/V if npo Pantoprazole Sodiu m 40 mg 05/13/22 09:00 05/24/22 08:[address] 40 Mg Tablet PO 40 mg DAILY BIJAN Administration Phenol 5 spray 05/18/22 10:00 05/23/22 16:47 Phenol Oral Spra y 177 Ml MUCOUS MEM 5 spray Q2H PRN Administration SORE THROAT Quetiapine Fumarat e 100 mg 05/13/22 09:00 05/24/22 08:08 Quetiapine 100 M g Tablet PO 100 mg BID BIJAN Administration Scopolamine 1 patch 05/20/22 11:00 05/23/22 11:31 Scopolamine 1.5 Patch TRANSDERMA 1 patch Q3D BIJAN Administration Senna/Docusate Sod ium 1 tab 05/13/22 09:00 05/24/22 08:07 Sennosides-Docus ate Tablet PO 1 tab BID [facility] Administration Venlafaxine HCl 150 mg 05/13/22 08:00 05/24/22 08:07 Venlafaxine Er ( 24hr) 150 Mg Capsu le PO 150 mg DAILY@08 [facility] Administration Vitals/I&O/Wt Last Vital Signs Temp 97.3 F L 05/24/22 12:00 Pulse 105 H 05/24/22 12:00 Resp 18 05/24/22 12:00 BP 147/97 05/24/22 12:00 Pulse Ox 96 05/24/22 12:00 O2 Del Method 05/24/22 12:00 05/23/22 05/24/22 05/24/22 22:59 06:59 14:59 Intake Total 1050 / 1205 50 / 1255 1050 / 1050 Output Total 2800 / 3800 375 / 375 Balance 1050 / 205 -2750 / -2545 675 / 675 Physical Exam Const: COMMON NORMALS: patient oriented x3 Resp: COMMON NORMALS: clear to auscultation bilaterally EFFORT & INSPECTION: Yes symmetric chest movement AUSCULTATION: clear to auscultation bilaterally Cardio: COMMON NORMALS: regular rate, regular rhythm, S1 normal heart sound present, S2 normal heart sound present, No gallops present (Cardio), No murmurs present (Cardio), No rub (Cardio) and Peripheral pulses 2+ throughout RATE: regular rate RHYTHM: regular rhythm HEART SOUNDS: S1 normal heart sound present and S2 normal heart sound present PERIPHERAL PULSES: Peripheral pulses 2+ throughout GI: COMMON NORMALS: Normal to inspection, nondistended, normoactive bowel sounds present, Soft to palpation, non-tender, No hepatosplenomegaly present and no masses AUSCULTATION: Yes normoactive bowel sounds PALPATION: Yes Soft to palpation and Yes No hepatosplenomegaly present RECTAL EXAM: deferred Extremity: COMMON NORMALS: no clubbing, cyanosis or edema and no pedal edema Neuro: COMMON NORMALS: patient oriented x3 Data 05/24/22 09:23 05/24/22 09:23 Micro: Microbiology 05/17/22 04:31 Blood Culture - Final Blood Staphylococcus epidermidis A&P Assessment and plan (1) History of urostomy: (2) GERD (gastroesophageal reflux disease): (3) Hypertension: (4) Depression: (5) Anxiety: (6) Seizure: (7) Multiple sclerosis: (8) Paraplegia: (9) Staghorn renal calculus: (10) UTI (urinary tract infection): (11) Constipation: (12) Decubitus ulcer, heel, right, unstageable: (13) Generalized epilepsy: (14) Hypernatremia: Plan 52-year-old female with past medical history of multiple sclerosis, anxiety depression cerebellar tremor, hypertension seizure disorder renal calculi, ur inary diversion with ileal conduit, frequent UTI was brought in with chief complaint of abdominal pain nausea vomiting, as well as fever. She is a custodial resident. # small bowel obstruction with transition point in the right anterior hemiabdomen Seen on CT imaging on May 17, 2022. CT of the abdomen was performed and showed a new small bowel obstruction with transition point as noted above. Ng was removed yesterday with starting clears however patient is vomting again today, will obtain acute abdomen series now. Add scopolamine patch as reglan and zofran not adequate Would monitor with conservative measures for now. Multiple attempt has been made to transfer the patient, for surgical management, currently she is awaiting bed. #Severe Hypernatremia: Free water deficit: 5.9Ls Currently started on D5 water 125 cc an hour Monitor BMP every 4h #Hypokalemia: Currently on IV potassium Monitor serum potassium # UTI Patient has a urostomy, history of staghorn calculi and complicated UTIs. CT abdomen 05/17 makes note of right-sided mild hydronephrosis. Discussed with urology and appreciate recommendations. No current intervention indicated from a urology perspective as findings are chronic. Urine culture from this admission growing Enterobacter cloacae, wound cx from foot ulcer with Pseudomonas and Klebsiella. Patient colonized with multiple gram negatives. Abx course meropenem 500mg iv q8h 05/12-05/17---> cefepime 2 g iv q8h on 05/18 in keeping with cx results, dosing optimized to cover Pseudomonas. Afberile since 05/16. Plan to complete total 10- 14 day course for complicated UTI # RLE patchy redness now resolved Lower extremity Doppler negative for DVT. DVT prophylaxis: On subcu Lovenox CODE STATUS full code Attestations Medical Necessity Statement*: Patient is to be in hospital for management small bowel obstruction, hypernatremia. Time Spent in Patient Care: Greater than 35 minutes (>than 50% of time spent in counselling and/or direct pt care on unit) . Critical Care Time: The high probability of a clinically significant, sudden or life threatening deterioration of the patient's [] system(s) required my full and direct attention, intervention and personal management. The critical care time is as shown. This time is in addition to time spent performing any reported procedures but includes the following: [x] Data and vital sign review and interpretation [x] Patient assessment, examination and intervention [x] Documentation [x] Medication orders and management Critical Care Time (min): 35 Coding Level of Care Code Acute Code for Chg Fwd Diagnoses History of urostomy Z98.890 GERD (gastroesophageal reflux disease) K21.9 Hypertension I10 Depression F32.9 Anxiety F41.9 Seizure R56.9 Multiple sclerosis G35 Paraplegia G82.20 Staghorn renal calculus N20.0 UTI (urinary tract infection) N39.0 Constipation K59.00 Decubitus ulcer, heel, right, unstageable L89.610 Generalized epilepsy G40.309 Hypernatremia E87.0
[2022-05-24 15:59] LABS: Blood Urea Nitrogen 31 mg/dL (6-20); Calcium 10.1 mg/dL (8.5-10.5); Carbon Dioxide 25 mmol/L (22-29); Chloride 123 mmol/L (98-107); Glomerular Filtration Rate 129.6 mL/min (90-130); Glucose 96 mg/dL (65-115); Osmolality Calculated 338 mOsm/kg (285-295)
[2022-05-24 16:00] LABS: Anion Gap 17.7 (5-19); Potassium 4.7 mmol/L (3.5-5.1)
[2022-05-24 16:02] LABS: Sodium 161 mmol/L (136-145)
--- NOTE | 2022-05-24 18:53 | PC.NURSE ---
This nurse clarified if patient can take po meds, Dr. Foy advised it is safe to do so
--- NOTE | 2022-05-24 20:16 | PM.PN ---
Subjective Subjective: Patient denies any abdominal pain she continues to pass flatus and have bowel movements. She is awaiting transfer to [facility] hospital Vitals/I&O/Wt Last Vital Signs Temp 97.3 F L 05/24/22 12:00 Pulse 86 05/24/22 16:05 Resp 14 05/24/22 16:05 BP 147/97 05/24/22 16:05 Pulse Ox 96 05/24/22 16:05 O2 Del Method 05/24/22 12:00 05/24/22 05/24/22 05/24/22 06:59 14:59 22:59 Intake Total 50 / 1255 1050 / 1050 810.417 / 1860.417 Output Total 2800 / 3800 375 / 375 1000 / 1375 Balance -2750 / -2545 675 / 675 -189.583 / 485.417 Physical Exam Narrative: General: No acute distress, awake alert and oriented x3 Abdomen: Soft, distended, nontender, no guarding rebound or masses Data 05/24/22 09:23 05/24/22 15:32 Micro: Microbiology 05/17/22 04:31 Blood Culture - Final Blood Staphylococcus epidermidis A&P Assessment and plan (1) Constipation: (2) Partial small bowel obstruction: Plan She has not gone 6 days without very significant oral intake Awaiting transfer to [facility] hospital N.p.o./NG tube She has an ileoconduit which I am unfamiliar with and unable to revise if necessary She will likely need TPN tomorrow If she does not get transferred soon, she will need to undergo a diagnostic laparoscopy, possible exploratory laparotomy, possible bowel resection Medical management per hospitalist Attestations Medical Necessity Statement*: Patient requires further nights in the hospital for intensive care and possible surgical intervention for small bowel obstruction. She is awaiting transfer to a tertiary care center Coding Level of Care Code Acute Code for Chg Fwd Diagnoses Constipation K59.00 Partial small bowel obstruction K56.600
[2022-05-24] MEDS: baclofen 10 mg Tablet 40 MG PO (21:37)
[2022-05-25] VITALS (200 sets, daily range): BP systolic 114–159; BP diastolic 73–124; PULSE 73–100; RESP 10–26; O2SAT 87–100
[2022-05-25] MEDS: dextrose 5% 1,000 ML 125 ML IV ×2 (01:35→08:36)
[2022-05-25] MEDS: cefepime 2,000 MG in sodium chloride 0.9% (plus) 50 ML 100 MG IV ×3 (01:36→17:28)
[2022-05-25 04:13] LABS: Basophils # 0.1 10^3/uL (0.0-0.1); Basophils % 0.3 %; Eosinophils # 0.2 10^3/uL (0.0-0.8); Eosinophils % 1.6 %; Hematocrit 45.1 % (37.0-47.0); Hemoglobin 13.8 g/dL (11.5-15.3); Lymphocytes # 3.7 10^3/uL (0.8-4.8); Lymphocytes % 23.6 %; Mean Corpuscular HGB Conc 30.6 g/dL (30.0-36.0); Mean Corpuscular Hemoglobin 30.3 pg (28.0-34.0); Mean Corpuscular Volume 98.9 fl (81-99); Mean Platelet Volume 10.4 fL (7.4-10.4); Monocytes # 1.4 10^3/uL (0.2-0.9); Monocytes % 9.1 %; Neutrophils % 64.8 %; Nucleated Red Blood Cells % 0 %; Platelet Count 637 10^3/cmm (130-400); Red Blood Count 4.56 10^6/uL (4.1-5.3); Red Cell Distribution Width 13.7 % (12.1-15.1); White Blood Count 15.4 10^3/uL (4.0-10.0)
[2022-05-25 04:33] LABS: Alanine Aminotransferase 97 U/L (0-33); Albumin Level 3.9 g/dL (3.5-5.2); Alkaline Phosphatase 109 U/L (35-105); Aspartate Amino Transferase 62 U/L (0-32); Blood Urea Nitrogen 33 mg/dL (6-20); Calcium 9.5 mg/dL (8.5-10.5); Carbon Dioxide 22 mmol/L (22-29); Globulin 4.4 g/dL (1.3-4.6); Glomerular Filtration Rate 129.6 mL/min (90-130); Glucose 135 mg/dL (65-115); Osmolality Calculated 321 mOsm/kg (285-295); Sodium 151 mmol/L (136-145); Total Bilirubin 0.7 mg/dL (0.15-1.2); Total Protein 8.3 g/dL (6.6-8.7)
[2022-05-25 04:45] LABS: Anion Gap 15.9 (5-19); Chloride 116 mmol/L (98-107)
[2022-05-25 05:01] LABS: Potassium 2.9 mmol/L (3.5-5.1)
[2022-05-25] MEDS: lidocaine 1% 5 ML in potassium chloride premix 100 ML 26.25 ML IV (05:23)
--- NOTE | 2022-05-25 06:23 | PC.NURSE ---
Patient rested comfortably throughout this nurses shift. 1250ml out documented from NG tube. Patient did exhibit some irritably bouts with staff during shift. Patient was not consistent with this, however it did catch staff off guard at times.
--- NOTE | 2022-05-25 08:01 | XR_ITS ---
WS: [id number] Acute abdomen series, 05/25/2022 Clinical Data: SBO Comparison: KUB, 05/22/2022 Findings: In the chest there are no nodules, masses or effusions. The heart is normal. The pulmonary vascularity is not increased. There are monitor leads on the chest wall No free air is seen beneath the diaphragms. No abnormal intra-abdominal masses are seen. There are di lated small bowel loops in the left side of the abdomen. There is fecal material in the descending co travis and rectum. There are calcifications overlying the right kidney. There are clips in the right upp er quadrant from a cholecystectomy. The nasogastric tube ends in the fundus of the stomach. XR/XR acute abdomen series [id number] Impression: 1. Dilated small bowel in left side of the abdomen which may represent a locali zed ileus or small bowel obstruction. 2. Large amount of fecal material in the descending colon and rectum. 3. Nasogastric tube ends in the fundus of the stomach. 4. Right renal calcifications.
[2022-05-25] MEDS: levETIRAcetam 500 mg Tablet 1000 MG PO ×2 (08:34→17:29)
[2022-05-25] MEDS: enoxaparin 40 mg/0.4 mL Syringe SUBCUT (08:34)
[2022-05-25] MEDS: pantoprazole DR 40 mg Tablet PO (08:34)
[2022-05-25] MEDS: venlafaxine ER (24HR) 150 mg Capsule PO (08:34)
[2022-05-25] MEDS: sennosides-docusate Tablet 1 TAB PO (08:34)
[2022-05-25] MEDS: quetiapine 100 mg Tablet PO ×2 (08:34→17:29)
[2022-05-25] MEDS: gabapentin 300 mg Capsule PO ×3 (08:34→22:21)
[2022-05-25] MEDS: lactulose oral liq 20 gm/30 mL UDC PO (08:36)
--- NOTE | 2022-05-25 11:56 | P.PN_ITS ---
Subjective Subjective: Patient denies any abdominal pain,N.G Tube in place, serum sodium is improving. Plan is to initiate TPN today. Awaiting Bed for Transfer,has been accepted at [facility]. Medications: Reviewed: Yes Medication Review Details: Generic Name Dose Route Start Last Admin Trade Name Freq PRN Reason Stop Dose Admin Acetaminophen 650 mg 05/12/22 21:04 05/14/22 23:32 Acetaminophen 32 5 Mg Tablet PO 650 mg Q6H PRN Administration Mild/Mod Pain Or Temp >/= 101 Baclofen 40 mg 05/12/22 23:15 05/24/22 21:37 Baclofen 10 Mg T ablet PO 40 mg BEDTIME BIJAN Administration Enoxaparin Sodium 40 mg 05/14/22 08:30 05/25/22 08:34 Enoxaparin 40 Mg /0.4 Ml Syringe SUBCUT 40 mg Q24H BIJAN Administration Gabapentin 300 mg 05/13/22 09:00 05/25/22 08:34 Gabapentin 300 M g Capsule PO 300 mg TID BIJAN Administration Cefepime HCl 2,000 mg/ Sodium 50 mls @ 100 mls/ hr 05/18/22 18:00 05/25/22 09:26 Chloride IV 100 mls/hr Q8H BIJAN Administration Protocol Dextrose 1,000 mls @ 75 ml s/hr 05/24/22 10:45 05/25/22 08:36 D5w IV 125 mls/hr .[id number] BIJAN Administration Ibuprofen 400 mg 05/12/22 21:04 05/13/22 22:57 Ibuprofen 200 Mg Tablet PO 400 mg Q8H PRN Administration mild/mod pain or temp >/= 101 Labetalol HCl 10 mg 05/20/22 20:18 05/22/22 01:55 Labetalol 5 Mg/M l Sdv 20ml IVP 10 mg Q4H PRN Administration HYPERTENSION Lactulose 20 gm 05/12/22 21:15 05/25/22 08:36 Lactulose Oral L iq 20 Gm/30 Ml Udc PO 20 gm Q12H BIJAN Administration Protocol Levetiracetam 1,000 mg 05/13/22 09:00 05/25/22 08:34 Levetiracetam 50 0 Mg Tablet PO 1,000 mg BID BIJAN Administration Metoclopramide HCl 5 mg 05/17/22 14:29 05/22/22 19:44 Metoclopramide 5 Mg/Ml Sdv 2 Ml IVP 5 mg Q6H PRN Administration NAUSEA AND VOMITI NG Ondansetron HCl 4 mg 05/12/22 21:04 05/21/22 16:11 Ondansetron 2 Mg /Ml Sdv 2 Ml IVP 4 mg Q8H PRN Administration vomiting, or N/V if npo Pantoprazole Sodiu m 40 mg 05/13/22 09:00 05/25/22 08:[address] 40 Mg Tablet PO 40 mg DAILY BIJAN Administration Phenol 5 spray 05/18/22 10:00 05/23/22 16:47 Phenol Oral Spra y 177 Ml MUCOUS MEM 5 spray Q2H PRN Administration SORE THROAT Quetiapine Fumarat e 100 mg 05/13/22 09:00 05/25/22 08:34 Quetiapine 100 M g Tablet PO 100 mg BID BIJAN Administration Scopolamine 1 patch 05/20/22 11:00 05/23/22 11:31 Scopolamine 1.5 Patch TRANSDERMA 1 patch Q3D BIJAN Administration Senna/Docusate Sod ium 1 tab 05/13/22 09:00 05/25/22 08:34 Sennosides-Docus ate Tablet PO 1 tab BID BIJAN Administration Venlafaxine HCl 150 mg 05/13/22 08:00 05/25/22 08:34 Venlafaxine Er ( 24hr) 150 Mg Capsu le PO 150 mg DAILY@08 BIJAN Administration Vitals/I&O/Wt Last Vital Signs Temp 97.8 F 05/24/22 19:00 Pulse 80 05/25/22 08:50 Resp 25 H 05/25/22 08:50 BP 126/73 05/25/22 08:50 Pulse Ox 96 05/25/22 08:50 O2 Del Method 05/24/22 12:00 05/24/22 05/25/22 05/25/22 22:59 06:59 14:59 Intake Total 890.417 / 4312.525 4473 / 2990.417 / Output Total 1000 / 1375 1550 / 2925 Balance -109.583 / 565.417 -500 / 65.417 / 2087.083 Physical Exam Const: COMMON NORMALS: patient oriented x3 Resp: COMMON NORMALS: clear to auscultation bilaterally EFFORT & INSPECTION: Yes symmetric chest movement AUSCULTATION: clear to auscultation bilaterally Cardio: COMMON NORMALS: regular rate, regular rhythm, S1 normal heart sound present, S2 normal heart sound present, No gallops present (Cardio), No murmurs present (Cardio), No rub (Cardio) and Peripheral pulses 2+ throughout RATE: regular rate RHYTHM: regular rhythm HEART SOUNDS: S1 normal heart sound present and S2 normal heart sound present PERIPHERAL PULSES: Peripheral pulses 2+ throughout GI: COMMON NORMALS: Normal to inspection, nondistended, normoactive bowel sounds present, Soft to palpation, non-tender, No hepatosplenomegaly present and no masses AUSCULTATION: Yes normoactive bowel sounds PALPATION: Yes Soft to palpation and Yes No hepatosplenomegaly present RECTAL EXAM: deferred Extremity: COMMON NORMALS: no clubbing, cyanosis or edema and no pedal edema Neuro: COMMON NORMALS: patient oriented x3 Data 05/25/22 02:59 05/25/22 02:59 Micro: Microbiology 05/17/22 04:31 Blood Culture - Final Blood Staphylococcus epidermidis A&P Assessment and plan (1) History of urostomy: (2) GERD (gastroesophageal reflux disease): (3) Hypertension: (4) Depression: (5) Anxiety: (6) Seizure: (7) Multiple sclerosis: (8) Paraplegia: (9) Staghorn renal calculus: (10) UTI (urinary tract infection): (11) Constipation: (12) Decubitus ulcer, heel, right, unstageable: (13) Generalized epilepsy: (14) Hypernatremia: Plan 52-year-old female with past medical history of multiple sclerosis, anxiety depression cerebellar tremor, hypertension seizure disorder renal calculi, urinary diversion with ileal conduit, frequent UTI was brought in with chief co mplaint of abdominal pain nausea vomiting, as well as fever. 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 # small bowel obstruction with transition point in the right anterior hemiabdomen Seen on CT imaging on May 17, 2022. CT of the abdomen was performed and showed a new small bowel obstruction with transition point as noted above. Ng was removed yesterday with starting clears however patient is vomting again today, will obtain acute abdomen series now. Add scopolamine patch as reglan and zofran not adequate Would monitor with conservative measures for now. Multiple attempt has been made to transfer the patient, for surgical management, currently she is awaiting bed. #Severe Hypernatremia: Free water deficit: 5.9Ls Was on D5 water 125 cc an hour dose has been reduced to 75cc/hr Monitor BMP #Hypokalemia: Currently on IV potassium Monitor serum potassium # UTI Patient has a urostomy, history of staghorn calculi and complicated UTIs. CT abdomen 05/17 makes note of right-sided mild hydronephrosis. Discussed with urology and appreciate recommendations. No current intervention indicated from a urology perspective as findings are chronic. Urine culture from this admission growing Enterobacter cloacae, wound cx from foot ulcer with Pseudomonas and Klebsiella. Patient colonized with multiple gram negatives. Abx course meropenem 500mg iv q8h 05/12-05/17---> cefepime 2 g iv q8h on 05/18 in keeping with cx results, dosing optimized to cover Pseudomonas. Afberile since 05/16. Plan to complete total 10- 14 day course for complicated UTI # RLE patchy redness now resolved Lower extremity Doppler negative for DVT. DVT prophylaxis: On subcu Lovenox CODE STATUS full code Attestations Medical Necessity Statement*: Patient need to be in hospital for SBO. Coding Level of Care Code Acute Code for Chg Fwd Exam Detailed Diagnoses History of urostomy Z98.890 GERD (gastroesophageal reflux disease) K21.9 Hypertension I10 Depression F32.9 Anxiety F41.9 Seizure R56.9 Multiple sclerosis G35 Paraplegia G82.20 Staghorn renal calculus N20.0 UTI (urinary tract infection) N39.0 Constipation K59.00 Decubitus ulcer, heel, right, unstageable L89.610 Generalized epilepsy G40.309 Hypernatremia E87.0
--- NOTE | 2022-05-25 13:03 | ANES.PREANE2 ---
Pre-Anesthetic Assessment Height/Weight: Height 1.73 m Weight 79.379 kg Temp Pulse Resp BP Pulse Ox O2 Del Method 97.8 F 85 13 145/93 97 05/24/22 19:00 05/25/22 12:45 05/25/22 12:45 05/25/22 12:45 05/25/22 12:45 05/24/22 12:00 Preop Diagnosis: Gallstone pancreatitis Operation Date: 05/25/22 18:35 Proposed Procedures p Laparoscopy(Not Applicable) - DO karely Robertson possibleExploratory Laparotomy(Not Applicable) - DO karely Robertson possibleColon Resection(Not Applicable) - Aakash Presley DO Familial anesthetic complications: none Was Beta Kofi taken within 24 hours: N/A Was Clonidine taken within 24 hours: N/A Last intake: Intake Last Liquid Date 05/22/22 Last Liquid Time 22:30 Last Solid Date 05/22/22 Last Solid Time 15:00 Social Tobacco and No alcohol Exam alert, oriented x 3 and regular rate & rhythm NG tube Airway Submandibular: within normal limits Cervical ROM: within normal limits Mallampati: Class II CV/HEM Hypertension GI Gastroesophageal Reflux Disease SBO Metabolic hypernatremia, hypokalemia Neuropsych Anxiety, Depression and Seizure MS (bedridden, multiple areas of skin breakdown) Anesthetic Plan ASA status: 3 Anesthesia: General Medications/Allergies Home Medications Medication Instructions Recorded Confirmed Last Taken Type melatonin 5 mg tablet 5 mg PO BEDTIME@20 08/21/19 05/13/22 Unknown History albuterol sulfate 90 mcg/actuation 2 puff inhalation QID 03/02/21 05/13/22 07/16/21 08:00 History aerosol inhaler (ProAir HFA) loratadine 10 mg tablet 10 mg PO DAILY@08 03/02/21 05/13/22 07/16/21 08:00 History sodium phosphates 19 gram-7 118 ml [place] DAILY PRN Constipation 03/02/21 05/13/22 Unknown History gram/118 mL enema (Fleet Enema) potassium chloride 20 mEq 20 meq PO BID@08,17 04/20/21 05/13/22 07/16/21 08:00 History tablet,extended release sennosides 8.6 mg-docusate sodium 1 tab-cap PO BID constipation #30 07/16/21 05/13/22 Unknown Rx 50 mg tablet (Senna with Docusate tabs Sodium) guaifenesin 200 mg/5 mL oral liquid 150 mg PO Q4H PRN Cough 09/16/21 05/13/22 Unknown History Lactobacillus acidophilus 1 1,000 mmu cells PO BID 01/19/22 05/13/22 Unknown History billion cell capsule acetaminophen 650 mg 650 mg PO Q6H PRN pain 01/19/22 05/13/22 Unknown History tablet,extended release fluticasone 500 mcg-salmeterol 50 1 inh inhalation BID 01/19/22 05/13/22 Unknown History mcg/dose blistr powdr for inhalation (Advair Diskus) gabapentin 300 mg capsule 300 mg PO TID 01/19/22 05/13/22 Unknown History levetiracetam 1,000 mg tablet 1,000 mg PO BID 01/19/22 05/13/22 Unknown History (Keppra) magnesium hydroxide 400 mg/5 mL 30 ml PO BID PRN Unknown 01/19/22 05/13/22 Unknown History oral suspension polyethylene glycol 3350 17 4 g PO DAILY 01/19/22 05/13/22 Unknown History gram/dose oral powder (Miralax) interferon beta-1b 0.3 mg 0.25 mg SUBCUT Q48H 05/12/22 05/13/22 Unknown History subcutaneous kit (Betaseron) omeprazole 20 mg capsule,delayed 20 mg PO DAILY 05/12/22 05/13/22 Unknown History release baclofen 20 mg tablet 20 mg PO TID 05/13/22 05/13/22 Unknown History ketoconazole 2 % shampoo 1 applic topical Q14D 05/13/22 05/13/22 Unknown History ketoconazole 2 % topical cream 1 applic topical DAILY 05/13/22 05/13/22 Unknown History lacosamide 200 mg tablet (Vimpat) 200 mg PO BID 05/13/22 05/13/22 Unknown History melatonin 5 mg tablet 5 mg PO BEDTIME 05/13/22 05/13/22 Unknown History methenamine hippurate 1 gram 1 g PO QID 05/13/22 05/13/22 Unknown History tablet (Hiprex) sennosides 8.6 mg tablet (Senokot) 8.6 mg PO BID 05/13/22 05/13/22 Unknown History simethicone 80 mg chewable tablet 80 mg PO QID PRN Gastrointestinal 05/13/22 05/13/22 Unknown History Spasms Or Cramping sodium chloride 0.65 % nasal spray 1 spray intranasal BID PRN 05/13/22 05/13/22 Unknown History aerosol ([place] Saline) Congestion venlafaxine 150 mg 150 mg PO DAILY 05/13/22 05/13/22 Unknown History capsule,extended release 24 hr (Effexor XR) Allergies Allergy/AdvReac Type Severity Reaction Status Date / Time latex Allergy ALGY-Rash Verified 05/13/22 09:38 Current Medications Generic Name Dose Route Start Last Admin Trade Name Freq PRN Reason Stop Dose Admin Acetaminophen 650 mg 05/12/22 21:04 05/14/22 23:32 Acetaminophen 325 Mg Tablet PO 650 mg Q6H PRN Administration Mild/Mod Pain Or Temp >/= 101 Baclofen 40 mg 05/12/22 23:15 05/24/22 21:37 Baclofen 10 Mg Tablet PO 40 mg BEDTIME BIJAN Administration Enoxaparin Sodium 40 mg 05/14/22 08:30 05/25/22 08:34 Enoxaparin 40 Mg/0.4 Ml Syringe SUBCUT 40 mg Q24H BIJAN Administration Gabapentin 300 mg 05/13/22 09:00 05/25/22 08:34 Gabapentin 300 Mg Capsule PO 300 mg TID BIJAN Administration Cefepime HCl 2,000 mg/ Sodium 50 mls @ 100 mls/hr 05/18/22 18:00 05/25/22 12:47 Chloride IV Infused Q8H [facility] Infusion Protocol Dextrose 1,000 mls @ 75 mls/hr 05/24/22 10:45 05/25/22 08:36 D5w IV 125 mls/hr .[id number] BIJAN Administration Ibuprofen 400 mg 05/12/22 21:04 05/13/22 22:57 Ibuprofen 200 Mg Tablet PO 400 mg Q8H PRN Administration mild/mod pain or temp >/= 101 Labetalol HCl 10 mg 05/20/22 20:18 05/22/22 01:55 Labetalol 5 Mg/Ml Sdv 20ml IVP 10 mg Q4H PRN Administration HYPERTENSION Lactulose 20 gm 05/12/22 21:15 05/25/22 08:36 Lactulose Oral Liq 20 Gm/30 Ml Udc PO 20 gm Q12H BIJAN Administration Protocol Levetiracetam 1,000 mg 05/13/22 09:00 05/25/22 08:34 Levetiracetam 500 Mg Tablet PO 1,000 mg BID BIJAN Administration Metoclopramide HCl 5 mg 05/17/22 14:29 05/22/22 19:44 Metoclopramide 5 Mg/Ml Sdv 2 Ml IVP 5 mg Q6H PRN Administration NAUSEA AND VOMITING Ondansetron HCl 4 mg 05/12/22 21:04 05/21/22 16:11 Ondansetron 2 Mg/Ml Sdv 2 Ml IVP 4 mg Q8H PRN Administration vomiting, or N/V if npo Pantoprazole Sodium 40 mg 05/13/22 09:00 05/25/22 08:[address] 40 Mg Tablet PO 40 mg DAILY BIJAN Administration Phenol 5 spray 05/18/22 10:00 05/23/22 16:47 Phenol Oral [place] 177 Ml MUCOUS MEM 5 spray Q2H PRN Administration SORE THROAT Quetiapine Fumarate 100 mg 05/13/22 09:00 05/25/22 08:34 Quetiapine 100 Mg Tablet PO 100 mg BID BIJAN Administration Scopolamine 1 patch 05/20/22 11:00 05/23/22 11:31 Scopolamine 1.5 Patch TRANSDERMA 1 patch Q3D BIJAN Administration Senna/Docusate Sodium 1 tab 05/13/22 09:00 05/25/22 08:34 Sennosides-Docusate Tablet PO 1 tab BID BIJAN Administration Venlafaxine HCl 150 mg 05/13/22 08:00 05/25/22 08:34 Venlafaxine Er (24hr) 150 Mg Capsule PO 150 mg DAILY@08 BIJAN Administration PFSH Anesthesia Medical History Anemia Anxiety Cerebellar tremor Depression Depression, endogenous Gallstone pancreatitis GERD (gastroesophageal reflux disease) Hypertension Multiple sclerosis Onychodystrophy Plantar callus Seizure Staghorn renal calculus Struvite kidney stones Surgical History H/O cervical biopsy H/O: hysterectomy History of biopsy of bladder History of urostomy S/P ERCP Status post laparoscopic cholecystectomy (07/16/21) Family History Family/Other Cancer Hyperlipidemia Hypertension Denies family history of Diabetes CAD (coronary artery disease) Clotting disorder Dementia Psychiatric illness Chronic kidney disease (CKD) Suicide Anesthesia complication Bleeding disorder Family history of premature coronary artery disease Lung disease Stroke Social History Smoking and tobacco status: never smoked Alcohol intake: never Marital status: Current occupational status: retired and disabled History of recent travel: No Data Anesthesia 05/25/22 02:59 05/25/22 02:59 Short CBC 05/24/22 05/25/22 Range/Units 09:23 02:59 WBC 11.6 H 15.4 H (4.0-10.0) 10^3/uL Hgb 14.9 13.8 (11.5-15.3) g/dL Hct 49.9 H 45.1 (37.0-47.0) % MCV 101.4 H 98.9 (81-99) fl Plt Count 684 H 637 H (130-400) 10^3/cmm Neut % (Auto) 64.5 64.8 % Neut # (Auto) 7.50 10.00 H (1.8-7.7) 10^3/uL BMP 05/24/22 05/24/22 05/25/22 09:23 15:32 02:59 Sodium 161 H* 161 H* 151 H Potassium 3.3 L 4.7 2.9 L D Chloride 126 H 123 H 116 H Carbon Dioxide 22 25 22 BUN 30 H 31 H 33 H Creatinine 0.5 0.5 0.5 Glucose 92 96 135 H Calcium 10.3 10.1 9.5 Liver Function 05/24/22 05/25/22 Range/Units 09:23 02:59 Total Bilirubin 0.6 0.7 (0.15-1.2) mg/dL AST 54 H 62 H (0-32) U/L ALT 98 H 97 H (0-33) U/L Alkaline Phosphatase 115 H 109 H (35-105) U/L Albumin 3.8 3.9 (3.5-5.2) g/dL Microbiology 05/17/22 04:31 Blood Culture - Final Blood Staphylococcus epidermidis Cardiac Studies: No Data to Display
--- NOTE | 2022-05-25 15:02 | PC.NURSE ---
Patient resting in bed, surgery set tor 1900 tonight. Patient is NPO, PICC order placed still awaiting for someone to place it.
--- NOTE | 2022-05-25 15:26 | PM.PN ---
Subjective Subjective: Patient denies any abdominal pain she continues to pass flatus and have bowel movements. She is awaiting transfer to [facility]. She has been accepted onto the waiting list Vitals/I&O/Wt Last Vital Signs Temp 97.8 F 05/24/22 19:00 Pulse 85 05/25/22 12:45 Resp 13 05/25/22 12:45 BP 145/93 05/25/22 12:45 Pulse Ox 97 05/25/22 12:45 O2 Del Method 05/24/22 12:00 05/25/22 05/25/22 05/25/22 06:59 14:59 22:59 Intake Total 1050 / 2990.417 2137.083 / 2137.083 Output Total 1550 / 2925 Balance -500 / 65.417 2137.083 / 2137.083 Physical Exam Narrative: General: No acute distress, awake alert and oriented x3 Abdomen: Soft, distended, nontender, no guarding rebound or masses Data 05/25/22 02:59 05/25/22 02:59 Micro: Microbiology 05/17/22 04:31 Blood Culture - Final Blood Staphylococcus epidermidis A&P Assessment and plan (1) Constipation: (2) Partial small bowel obstruction: Plan To OR for Diagnostic laparoscopy, possible exploratory laparotomy, possible bowel resection The risks and benefits of the procedure, including but not limited to, bleeding, infection, scar, numbness, pain, damage to surrounding structures, damage to ileal conduit requiring revision, and conversion to an open procedure, anastomotic leak, were explained to the patient. She is understanding of the risks and wishes to proceed. Medical management per hospitalist Attestations Medical Necessity Statement*: Patient requires multiple more nights in the hospital following exploratory surgery today and subsequent recovery Coding Level of Care Code Acute Code for Chg Fwd Diagnoses Constipation K59.00 Partial small bowel obstruction K56.600
--- NOTE | 2022-05-25 15:34 | XR_ITS ---
WS: [id number] CHEST XRAY TECHNIQUE: Portable chest. CLINICAL INFORMATION: Post PICC insertion COMPARISON: May 22, 2022 FINDINGS: RIGHT PICC line with tip in the mid SVC in good position. No pneumothorax. Enteric tube wit h tip in the stomach. Heart: Cardiomegaly. Shallow inspiration. Lungs: Lungs are clear. No consolidation or pleural effusion. Bones: Normal visualized bony structures. XR/XR chest 1V portable [id number] IMPRESSION: RIGHT PICC line with tip in the mid SVC in good position. No pneumothorax.
--- NOTE | 2022-05-25 16:30 | PC.NURSE ---
Double lumen Xcela PICC placed in right brachial vein without difficulty. Mid arm circumference 29 cm measured 10 cm from right AC space. 40 cm total length inserted with 1 cm external cath noted. Dressing due to be changed tomorrow 05/26/22. Report given to bedside nurse.
[2022-05-25 18:57] LABS: Blood Urea Nitrogen 31 mg/dL (6-20); Calcium 10.4 mg/dL (8.5-10.5); Carbon Dioxide 22 mmol/L (22-29); Chloride 112 mmol/L (98-107); Glomerular Filtration Rate 129.6 mL/min (90-130); Glucose 89 mg/dL (65-115); Osmolality Calculated 314 mOsm/kg (285-295); Sodium 149 mmol/L (136-145)
[2022-05-25 18:58] LABS: Anion Gap 19.4 (5-19); Potassium 4.4 mmol/L (3.5-5.1)
--- NOTE | 2022-05-25 19:27 | PC.NURSE ---
Patient transferred to OR at 0.
--- NOTE | 2022-05-25 21:33 | PM.OP ---
Operative Report Date of procedure: May 25, 2022 Pre-op diagnosis: Preop Diagnosis small bowel obstruction Post-op diagnosis: same Procedure done: Diagnostic laparoscopy Extensive lysis of adhesions Implants: None Specimens removed/disposition: None Surgeon: Dr. Aakash Presley DO Anesthesia: General Estimated blood loss (mL): 5 Complications: None apparent Findings: Right hemiabdomen small bowel adhesions Brief History: This very pleasant 52-year-old female with MS and an ileoconduit who developed a small bowel obstruction. Diagnostic laparoscopy was indicated. The risks and benefits of this procedure were explained and documented Procedure: Patient was wheeled in the operative room placed on the OR table in supine position. The abdomen was inspected prepped and draped in the usual sterile fashion. A timeout was performed. All present were in agreement. An General endotracheal intubation was achieved by the department anesthesia. A 5 mm incision was placed into the left upper quadrant. A Veress needle was inserted into the abdomen and intra-abdominal insufflation was brought to 15 mmHg. 3 more 5 mm trochars were placed in the left lower quadrant and suprapubically, under direct visualization. The small bowel was ran its entire length. There is a transition from dilated small bowel to decompressed small bowel in the right hemiabdomen. There was a significant amount of adhesions there. Meticulous and careful dissection was performed with Enseal and Metzenbaum laparoscopic scissors to free the adhesions. Care was taken not to injure the bowel. Greater than 90 minutes of lysis of adhesions was performed until decompressed bowel started to fill with succus. The bowel was ran and no further transition points were identified. 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 Insufflation was removed and trochars were removed. Skin was closed with 4-0 Monocryl in a subcuticular fashion. Skin glue was applied. Patient tolerated procedure well.
[2022-05-25] MEDS: dextrose 5% 1,000 ML 75 ML IV (22:21)
[2022-05-25] MEDS: baclofen 10 mg Tablet 40 MG PO (22:21)
[2022-05-26] VITALS (28 sets, daily range): BP systolic 100–148; BP diastolic 67–98; PULSE 61–88; RESP 9–18; TEMP 36.5–37; O2SAT 93–97
--- NOTE | 2022-05-26 01:25 | XRR_ITS ---
PROCEDURE INFORMATION: Exam: XR Chest Exam date and time: 05/26/2022 1:30 AM Age: 52 years old Clinical indication: Device placement; Ng tube; Prior surgery; Surgery type: Gb; Patient HX: Check S/P ng placement; Additional info: Tube placement TECHNIQUE: Imaging protocol: Radiologic exam of the chest. Views: 1 view. COMPARISON: CR XR chest 1V portable [id number] 05/25/2022 4:30 PM FINDINGS: Tubes, catheters and devices: NGT and right PICC are in place. Lungs: Left lung base atelectasis. No consolidation. Pleural spaces: Unremarkable. No pleural effusion. No pneumothorax. Heart/Mediastinum: The heart is large. Bones/joints: Unremarkable. Organs: Absent gallbladder. XR/XR chest 1V portable [id number] IMPRESSION: Right PICC and NGT are in place.
[2022-05-26] MEDS: cefepime 2,000 MG in sodium chloride 0.9% (plus) 50 ML 100 MG IV ×3 (01:50→17:43)
[2022-05-26 03:26] LABS: Basophils % 0.2 %; Eosinophils % 0.1 %; Hemoglobin 12.7 g/dL (11.5-15.3); Mean Corpuscular HGB Conc 29.5 g/dL (30.0-36.0); Mean Corpuscular Hemoglobin 30.1 pg (28.0-34.0); Mean Corpuscular Volume 101.9 fl (81-99); Mean Platelet Volume 10.3 fL (7.4-10.4); Monocytes # 0.9 10^3/uL (0.2-0.9); Monocytes % 5.7 %; Neutrophils # 13.34 10^3/uL (1.8-7.7); Neutrophils % 81.5 %; Nucleated Red Blood Cells % 0 %; Platelet Count 454 10^3/cmm (130-400); Red Blood Count 4.22 10^6/uL (4.1-5.3); Red Cell Distribution Width 13.6 % (12.1-15.1); White Blood Count 16.4 10^3/uL (4.0-10.0)
[2022-05-26 03:55] LABS: Alanine Aminotransferase 113 U/L (0-33); Albumin Level 3.4 g/dL (3.5-5.2); Alkaline Phosphatase 109 U/L (35-105); Blood Urea Nitrogen 33 mg/dL (6-20); Calcium 8.7 mg/dL (8.5-10.5); Carbon Dioxide 21 mmol/L (22-29); Chloride 112 mmol/L (98-107); Glucose 124 mg/dL (65-115); Osmolality Calculated 307 mOsm/kg (285-295); Sodium 144 mmol/L (136-145); Total Bilirubin 0.6 mg/dL (0.15-1.2); Total Protein 7.4 g/dL (6.6-8.7)
[2022-05-26 04:02] LABS: Anion Gap 14.8 (5-19); Aspartate Amino Transferase 97 U/L (0-32); Potassium 3.8 mmol/L (3.5-5.1)
--- NOTE | 2022-05-26 07:45 | ANE.PACU2 ---
Inpatient post-anesthesia follow up: Airway intact: Yes Vital signs: Temperature 98.6 F Pulse Rate 69 Respiratory Rate 13 Blood Pressure 120/70 Pulse Oximetry 94 Oxygen Delivery Me thod Room Air Oxygen Flow Rate Fraction of Inspir ed Oxygen Nausea and vomiting: No Pain level: 3 Mental status: Baseline
--- NOTE | 2022-05-26 08:42 | P.PN_ITS ---
Subjective Subjective: Patient denies any abdominal pain, s/p laparoscopic adhesion lysis for right hemiabdomen small bowel adhesion. Tolerated the procedure well. Medications: Reviewed: Yes Medication Review Details: Generic Name Dose Route Start Last Admin Trade Name Freq PRN Reason Stop Dose Admin Acetaminophen 650 mg 05/12/22 21:04 05/14/22 23:32 Acetaminophen 32 5 Mg Tablet PO 650 mg Q6H PRN Administration Mild/Mod Pain Or Temp >/= 101 Baclofen 40 mg 05/12/22 23:15 05/25/22 22:21 Baclofen 10 Mg T ablet PO 40 mg BEDTIME BIJAN Administration Enoxaparin Sodium 40 mg 05/14/22 08:30 05/25/22 08:34 Enoxaparin 40 Mg /0.4 Ml Syringe SUBCUT 40 mg Q24H BIJAN Administration Gabapentin 300 mg 05/13/22 09:00 05/25/22 22:21 Gabapentin 300 M g Capsule PO 300 mg TID BIJAN Administration Cefepime HCl 2,000 mg/ Sodium 50 mls @ 100 mls/ hr 05/18/22 18:00 05/26/22 02:25 Chloride IV Infused Q8H BIJAN Infusion Protocol Dextrose 1,000 mls @ 50 ml s/hr 05/24/22 10:45 05/25/22 22:21 D5w IV 75 mls/hr .Q20H BIJAN Administration Labetalol HCl 10 mg 05/20/22 20:18 05/22/22 01:55 Labetalol 5 Mg/M l Sdv 20ml IVP 10 mg Q4H PRN Administration HYPERTENSION Levetiracetam 1,000 mg 05/13/22 09:00 05/25/22 17:29 Levetiracetam 50 0 Mg Tablet PO 1,000 mg BID BIJAN Administration Metoclopramide HCl 5 mg 05/17/22 14:29 05/22/22 19:44 Metoclopramide 5 Mg/Ml Sdv 2 Ml IVP 5 mg Q6H PRN Administration NAUSEA AND VOMITI NG Ondansetron HCl 4 mg 05/12/22 21:04 05/21/22 16:11 Ondansetron 2 Mg /Ml Sdv 2 Ml IVP 4 mg Q8H PRN Administration vomiting, or N/V if npo Pantoprazole Sodiu m 40 mg 05/13/22 09:00 05/25/22 08:[address] 40 Mg Tablet PO 40 mg DAILY BIJAN Administration Phenol 5 spray 05/18/22 10:00 05/23/22 16:47 Phenol Oral Spra y 177 Ml MUCOUS MEM 5 spray Q2H PRN Administration SORE THROAT Quetiapine Fumarat e 100 mg 05/13/22 09:00 05/25/22 17:29 Quetiapine 100 M g Tablet PO 100 mg BID BIJAN Administration Scopolamine 1 patch 05/20/22 11:00 05/23/22 11:31 Scopolamine 1.5 Patch TRANSDERMA 1 patch Q3D BIJAN Administration Senna/Docusate Sod ium 1 tab 05/13/22 09:00 05/25/22 17:29 Sennosides-Docus ate Tablet PO Not Given BID [facility] Venlafaxine HCl 150 mg 05/13/22 08:00 05/25/22 08:34 Venlafaxine Er ( 24hr) 150 Mg Capsu le PO 150 mg DAILY@08 BIJAN Administration Vitals/I&O/Wt Last Vital Signs Temp 98.6 F 05/26/22 04:57 Pulse 69 05/26/22 05:30 Resp 13 05/26/22 05:30 BP 120/70 05/26/22 05:30 Pulse Ox 94 05/26/22 05:30 O2 Del Method 05/24/22 12:00 05/25/22 05/26/22 05/26/22 22:59 06:59 14:59 Intake Total 1050 / 3187.083 50 / 3237.083 Output Total 1000 / 1000 200 / 1200 Balance 50 / 2187.083 -150 / 2037.083 Physical Exam Const: COMMON NORMALS: patient oriented x3 Resp: COMMON NORMALS: clear to auscultation bilaterally EFFORT & INSPECTION: Yes symmetric chest movement AUSCULTATION: clear to auscultation bilaterally Cardio: COMMON NORMALS: regular rate, regular rhythm, S1 normal heart sound present, S2 normal heart sound present, No gallops present (Cardio), No murmurs present (Cardio), No rub (Cardio) and Peripheral pulses 2+ throughout RATE: regular rate RHYTHM: regular rhythm HEART SOUNDS: S1 normal heart sound present and S2 normal heart sound present PERIPHERAL PULSES: Peripheral pulses 2+ throughout GI: COMMON NORMALS: Normal to inspection, nondistended, normoactive bowel sounds present, Soft to palpation, non-tender, No hepatosplenomegaly present and no masses AUSCULTATION: Yes normoactive bowel sounds PALPATION: Yes Soft to palpation and Yes No hepatosplenomegaly present RECTAL EXAM: deferred Extremity: COMMON NORMALS: no clubbing, cyanosis or edema and no pedal edema Neuro: COMMON NORMALS: patient oriented x3 Data 05/26/22 02:19 05/26/22 02:19 A&P Assessment and plan (1) History of urostomy: (2) GERD (gastroesophageal reflux disease): (3) Hypertension: (4) Depression: (5) Anxiety: (6) Seizure: (7) Multiple sclerosis: (8) Paraplegia: (9) Staghorn renal calculus: (10) UTI (urinary tract infection): (11) Constipation: (12) Decubitus ulcer, heel, right, unstageable: (13) Generalized epilepsy: (14) Hypernatremia: Plan 52-year-old female with past medical history of multiple sclerosis, anxiety depression cerebellar tremor, hypertension seizure disorder renal calculi, uri nary diversion with ileal conduit, frequent UTI was brought in with chief complaint of abdominal pain nausea vomiting, as well as fever. 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 # small bowel obstruction with transition point in the right anterior hemiabdomen Seen on CT imaging on May 17, 2022. CT of the abdomen was performed and showed a new small bowel obstruction with transition point as noted above. NG tube to suction. S/p laparoscopic adhesion lysis for right hemiabdomen small bowel adhesion Continue Reglan Zofran #Severe Hypernatremia: Free water deficit: 5.9Ls Was on D5 water 125 cc an hour dose has been reduced to 50 cc/hr Monitor BMP #Hypokalemia: Monitor and replace serum potassium. # UTI Patient has a urostomy, history of staghorn calculi and complicated UTIs. CT abdomen 05/17 makes note of right-sided mild hydronephrosis. Discussed with urology and appreciate recommendations. No current intervention indicated from a urology perspective as findings are chronic. Urine culture from this admission growing Enterobacter cloacae, wound cx from foot ulcer with Pseudomonas and Klebsiella. Patient colonized with multiple gram negatives. Abx course meropenem 500mg iv q8h 05/12-05/17---> cefepime 2 g iv q8h on 05/18 in keeping with cx results, dosing optimized to cover Pseudomonas. Afberile since 05/16. Plan to complete total 10- 14 day course for complicated UTI # RLE patchy redness now resolved Lower extremity Doppler negative for DVT. #Fever: Resolved On TPN DVT prophylaxis: On subcu Lovenox CODE STATUS full code Attestations Medical Necessity Statement*: Patient is to be in hospital management of small bowel obstruction. Coding Level of Care Code Acute Code for Chg Fwd Exam Detailed Diagnoses History of urostomy Z98.890 GERD (gastroesophageal reflux disease) K21.9 Hypertension I10 Depression F32.9 Anxiety F41.9 Seizure R56.9 Multiple sclerosis G35 Paraplegia G82.20 Staghorn renal calculus N20.0 UTI (urinary tract infection) N39.0 Constipation K59.00 Decubitus ulcer, heel, right, unstageable L89.610 Generalized epilepsy G40.309 Hypernatremia E87.0
[2022-05-26] MEDS: sennosides-docusate Tablet 1 TAB PO ×2 (09:26→17:43)
[2022-05-26] MEDS: gabapentin 300 mg Capsule PO ×3 (09:26→20:10)
[2022-05-26] MEDS: quetiapine 100 mg Tablet PO ×2 (09:26→17:43)
[2022-05-26] MEDS: pantoprazole DR 40 mg Tablet PO (09:26)
[2022-05-26] MEDS: levETIRAcetam 500 mg Tablet 1000 MG PO ×2 (09:26→17:43)
[2022-05-26] MEDS: enoxaparin 40 mg/0.4 mL Syringe SUBCUT (09:27)
[2022-05-26] MEDS: venlafaxine ER (24HR) 150 mg Capsule PO (09:27)
--- NOTE | 2022-05-26 10:43 | PC.CHAP ---
Pastoral Care Encounter/Spiritual Assessment Type of Contact [] Declined hay baler visit [] Patient/Family/Request visit [] Outpatient visit [] Follow-up visit [] Physician referral [] Code/Alert [x] Routine visit [] Staff referral [] Actively dying [] Patient sleeping [] Family support [] [] Out of room [] Palliative care [] [] Receiving care in room [] Pre-surgical visit [] Trauma [] Long length of stay [] ICU visit [] Other: Relational/Emotional Strength [] Patient feels connected with others/family/visitors/staff [] Distress [] Loneliness/isolation [] Abandonment Spirituality of Patient [] Person of Lorri [] Attends Moravian of their Lorri [] Believes in Prayer [] Reads Bible or Moravian materials [] There are Spiritual issues to be addressed Buildings And Grounds Director Interventions [x] Prayer [] Active listening [] Non-anxious presence [] Spiritual/emotional support [] Crisis/trauma care [] Spiritual counseling [] Bereavement support [] Provided bereavement packet [] Provided Bible/devotional materials [] Provided toy/stuffed animal, coloring book to patient or family member [] Provided Communion [] Anointing/[place]rift [] Salvation [x] Completed spiritual assessment [] Other: Impact on Illness or Injury [] Angry [] Fearful [] Anxious [] Often cries [] Exhaustion [] Unable to work [] Unable to attend lutheran [] Unable to walk/stand [] Unable to read [] Unable to drive [] Unable to eat/drink [] Unable to sleep [] Unable to be with family [] Patient intubated [] Other: Summary Time spent with patient
[2022-05-26 10:59] LABS: Glucose Point of Care 84 mg/dL (70-110)
[2022-05-26] MEDS: lidocaine 1% 5 ML in potassium chloride premix 100 ML 52.5 ML IV (12:17)
--- NOTE | 2022-05-26 12:33 | PC.NURSE ---
PICC line dressing changed per protocol using sterile technique
[2022-05-26] MEDS: Fleet Enema 133 mL Enema PR (13:14)
[2022-05-26] MEDS: dextrose 5% 1,000 ML 50 ML IV (13:14)
[2022-05-26] MEDS: AA-Dex 5%-20% w/Lytes 1,000 ML 42 ML IV (13:32)
[2022-05-26 14:22] LABS: Glucose Point of Care 104 mg/dL (70-110)
--- NOTE | 2022-05-26 16:06 | PC.NURSE ---
Patient transferred to [facility] at approximately 1600
--- NOTE | 2022-05-26 17:19 | PM.PN ---
Subjective Subjective: Patient seen and examined. She reports that her abdominal pain is controlled. She denies any nausea or vomiting. No bowel movement yet today. She says she is still passing flatus Vitals/I&O/Wt Last Vital Signs Temp 98.6 F 05/26/22 04:57 Pulse 67 05/26/22 12:00 Resp 13 05/26/22 12:00 BP 114/75 05/26/22 12:00 Pulse Ox 94 05/26/22 12:00 O2 Del Method 05/24/22 12:00 05/26/22 05/26/22 05/26/22 06:59 14:59 22:59 Intake Total 50 / 3237.083 1155 / 1155 Output Total 200 / 1200 175 / 175 450 / 625 Balance -150 / 2037.083 980 / 980 -450 / 530 Physical Exam Narrative: General: No acute distress, awake alert and oriented x3 Abdomen: Soft, distended, appropriately tender to palpation, no guarding rebound or masses Incisions intact without erythema or exudate Data 05/26/22 02:19 05/26/22 02:19 A&P Assessment and plan (1) Partial small bowel obstruction: Plan Postoperative day #1 status post diagnostic laparoscopy with extensive lysis of adhesions N.p.o./NG tube to suction/TPN Medical management per hospitalist Await return of bowel function Attestations Medical Necessity Statement*: Patient requires multiple more nights in the hospital for electrolyte correction, nasogastric suctioning and diet advancement following diagnostic laparoscopy with extensive lysis of adhesions Coding Level of Care Code Acute Code for Chg Fwd Diagnoses Partial small bowel obstruction K56.600
[2022-05-26] MEDS: baclofen 10 mg Tablet 40 MG PO (20:10)
--- NOTE | 2022-05-26 21:42 | PC.NURSE ---
Upon my arrival on shift patient did not have non-violent restraints in place, nothing was said in bedside report by previous shift nurse about restraints, order expires this pm at 2251. Patient does not have any necessity for them at this time.
[2022-05-26 22:07] LABS: Glucose Point of Care 118 mg/dL (70-110)
[2022-05-27] VITALS: BP 115/77; PULSE 66; RESP 16; TEMP 36.5; O2SAT 98
[2022-05-27] MEDS: cefepime 2,000 MG in sodium chloride 0.9% (plus) 50 ML 100 MG IV ×3 (01:13→17:13)
[2022-05-27 03:34] LABS: Glucose Point of Care 117 mg/dL (70-110)
[2022-05-27 03:43] VITALS: BP 130/83; PULSE 78; RESP 15; TEMP 36.4; O2SAT 97
[2022-05-27 04:50] LABS: Basophils % 0.4 %; Eosinophils # 0.3 10^3/uL (0.0-0.8); Hematocrit 41.6 % (37.0-47.0); Hemoglobin 12.4 g/dL (11.5-15.3); Lymphocytes # 2.3 10^3/uL (0.8-4.8); Lymphocytes % 24.3 %; Mean Corpuscular HGB Conc 29.8 g/dL (30.0-36.0); Mean Corpuscular Hemoglobin 30.6 pg (28.0-34.0); Mean Corpuscular Volume 102.7 fl (81-99); Mean Platelet Volume 11.1 fL (7.4-10.4); Monocytes # 0.9 10^3/uL (0.2-0.9); Monocytes % 9.5 %; Neutrophils # 5.85 10^3/uL (1.8-7.7); Neutrophils % 62.2 %; Nucleated Red Blood Cells % 0 %; Platelet Count 379 10^3/cmm (130-400); Red Blood Count 4.05 10^6/uL (4.1-5.3); Red Cell Distribution Width 13.9 % (12.1-15.1); White Blood Count 9.4 10^3/uL (4.0-10.0)
[2022-05-27 06:35] LABS: Glucose Point of Care 109 mg/dL (70-110)
[2022-05-27 06:57] LABS: Alanine Aminotransferase 87 U/L (0-33); Albumin Level 3.3 g/dL (3.5-5.2); Alkaline Phosphatase 114 U/L (35-105); Blood Urea Nitrogen 27 mg/dL (6-20); Calcium 9.4 mg/dL (8.5-10.5); Carbon Dioxide 23 mmol/L (22-29); Chloride 111 mmol/L (98-107); Globulin 4.1 g/dL (1.3-4.6); Glomerular Filtration Rate 167.6 mL/min (90-130); Glucose 123 mg/dL (65-115); Osmolality Calculated 304 mOsm/kg (285-295); Sodium 144 mmol/L (136-145); Total Bilirubin 0.5 mg/dL (0.15-1.2); Total Protein 7.4 g/dL (6.6-8.7)
[2022-05-27 06:58] LABS: Creatinine Clr Calc Pharmacy 182.0435
[2022-05-27 06:59] LABS: Anion Gap 13.7 (5-19); Aspartate Amino Transferase 49 U/L (0-32); Potassium 3.7 mmol/L (3.5-5.1)
[2022-05-27 08:00] VITALS: BP 137/84; PULSE 81; RESP 16; TEMP 36.8; O2SAT 96
[2022-05-27] MEDS: enoxaparin 40 mg/0.4 mL Syringe SUBCUT (08:46)
[2022-05-27] MEDS: pantoprazole DR 40 mg Tablet PO (08:47)
[2022-05-27] MEDS: sennosides-docusate Tablet 1 TAB PO ×2 (08:47→17:13)
[2022-05-27] MEDS: levETIRAcetam 500 mg Tablet 1000 MG PO ×2 (08:47→17:13)
[2022-05-27] MEDS: gabapentin 300 mg Capsule PO ×3 (08:47→21:58)
[2022-05-27] MEDS: venlafaxine ER (24HR) 150 mg Capsule PO (08:47)
[2022-05-27] MEDS: quetiapine 100 mg Tablet PO ×2 (08:47→17:13)
[2022-05-27] MEDS: Fleet Enema 133 mL Enema PR (10:16)
[2022-05-27 12:00] VITALS: BP 125/80; PULSE 87; RESP 18; TEMP 37; O2SAT 96
[2022-05-27 12:36] LABS: Glucose Point of Care 103 mg/dL (70-110)
[2022-05-27] MEDS: AA-Dex 5%-20% w/Lytes 1,000 ML 42 ML IV (14:50)
--- NOTE | 2022-05-27 15:00 | P.PN_ITS ---
Subjective Subjective: Patient denies any abdominal pain, nausea vomiting, NG tube clamped. Passing flatus, receiving enema. Awaiting resumption of bowel movement. Medications: Reviewed: Yes Medication Review Details: Generic Name Dose Route Start Last Admin Trade Name Freq PRN Reason Stop Dose Admin Acetaminophen 650 mg 05/12/22 21:04 05/14/22 23:32 Acetaminophen 32 5 Mg Tablet PO 650 mg Q6H PRN Administration Mild/Mod Pain Or Temp >/= 101 Baclofen 40 mg 05/12/22 23:15 05/26/22 20:10 Baclofen 10 Mg T ablet PO 40 mg BEDTIME BIJAN Administration Enoxaparin Sodium 40 mg 05/14/22 08:30 05/27/22 08:46 Enoxaparin 40 Mg /0.4 Ml Syringe SUBCUT 40 mg Q24H BIJAN Administration Gabapentin 300 mg 05/13/22 09:00 05/27/22 08:47 Gabapentin 300 M g Capsule PO 300 mg TID BIJAN Administration Cefepime HCl 2,000 mg/ Sodium 50 mls @ 100 mls/ hr 05/18/22 18:00 05/27/22 12:34 Chloride IV Infused Q8H BIJAN Infusion Protocol Dextrose 1,000 mls @ 50 ml s/hr 05/24/22 10:45 05/27/22 12:34 D5w IV 50 mls/hr .Q20H BIJAN Infusion Amino Acids/Electr olytes 1,000 mls @ 42 ml s/hr 05/26/22 13:00 05/27/22 14:50 Clinimix E 5%-20 % IV 42 mls/hr .[id number] BIJAN Administration Fat Emulsion Intra venous 250 mls @ 20.833 mls/hr 05/26/22 13:30 05/27/22 14:50 Intralipid 20% IV 20.83 mls/hr Q24H BIJAN Administration Labetalol HCl 10 mg 05/20/22 20:18 05/22/22 01:55 Labetalol 5 Mg/M l Sdv 20ml IVP 10 mg Q4H PRN Administration HYPERTENSION Levetiracetam 1,000 mg 05/13/22 09:00 05/27/22 08:47 Levetiracetam 50 0 Mg Tablet PO 1,000 mg BID BIJAN Administration Metoclopramide HCl 5 mg 05/17/22 14:29 05/22/22 19:44 Metoclopramide 5 Mg/Ml Sdv 2 Ml IVP 5 mg Q6H PRN Administration NAUSEA AND VOMITI NG Ondansetron HCl 4 mg 05/12/22 21:04 05/21/22 16:11 Ondansetron 2 Mg /Ml Sdv 2 Ml IVP 4 mg Q8H PRN Administration vomiting, or N/V if npo Pantoprazole Sodiu m 40 mg 05/13/22 09:00 05/27/22 08:[address] 40 Mg Tablet PO 40 mg DAILY BIJAN Administration Phenol 5 spray 05/18/22 10:00 05/23/22 16:47 Phenol Oral Spra y 177 Ml MUCOUS MEM 5 spray Q2H PRN Administration SORE THROAT Quetiapine Fumarat e 100 mg 05/13/22 09:00 05/27/22 08:47 Quetiapine 100 M g Tablet PO 100 mg BID BIJAN Administration Senna/Docusate Sod ium 1 tab 05/13/22 09:00 05/27/22 08:47 Sennosides-Docus ate Tablet PO 1 tab BID BIJAN Administration Sodium Phosphate 133 ml 05/26/22 13:07 05/27/22 10:16 Fleet Enema 133 Ml Enema NV 133 ml DAILY BIJAN Administration Venlafaxine HCl 150 mg 05/13/22 08:00 05/27/22 08:47 Venlafaxine Er ( 24hr) 150 Mg Capsu le PO 150 mg DAILY@08 BIJAN Administration Vitals/I&O/Wt Last Vital Signs Temp 98.6 F 05/27/22 12:00 Pulse 87 05/27/22 12:00 Resp 18 05/27/22 12:00 BP 125/80 05/27/22 12:00 Pulse Ox 96 05/27/22 12:00 O2 Del Method 05/27/22 03:43 05/27/22 05/27/22 05/27/22 06:59 14:59 22:59 Intake Total 300 / 1505 1550 / 1550 Output Total 150 / 1525 Balance 150 / -20 1550 / 1550 Physical Exam Const: COMMON NORMALS: patient oriented x3 Resp: COMMON NORMALS: clear to auscultation bilaterally EFFORT & INSPECTION: Yes symmetric chest movement AUSCULTATION: clear to auscultation bilaterally Cardio: COMMON NORMALS: regular rate, regular rhythm, S1 normal heart sound present, S2 normal heart sound present, No gallops present (Cardio), No murmurs present (Cardio), No rub (Cardio) and Peripheral pulses 2+ throughout RATE: r egular rate RHYTHM: regular rhythm HEART SOUNDS: S1 normal heart sound present and S2 normal heart sound present PERIPHERAL PULSES: Peripheral pulses 2+ throughout GI: COMMON NORMALS: Normal to inspection, nondistended, normoactive bowel sounds present, Soft to palpation, non-tender, No hepatosplenomegaly present and no masses AUSCULTATION: Yes normoactive bowel sounds PALPATION: Yes Soft to palpation and Yes No hepatosplenomegaly present RECTAL EXAM: deferred Extremity: COMMON NORMALS: no clubbing, cyanosis or edema and no pedal edema Neuro: COMMON NORMALS: patient oriented x3 Data 05/27/22 04:35 05/27/22 06:08 A&P Assessment and plan (1) History of urostomy: (2) GERD (gastroesophageal reflux disease): (3) Hypertension: (4) Depression: (5) Anxiety: (6) Seizure: (7) Multiple sclerosis: (8) Paraplegia: (9) Staghorn renal calculus: (10) UTI (urinary tract infection): (11) Constipation: (12) Decubitus ulcer, heel, right, unstageable: (13) Generalized epilepsy: (14) Hypernatremia: Plan 52-year-old female with past medical history of multiple sclerosis, anxiety depression cerebellar tremor, hypertension seizure disorder renal calculi, urinary diversion with ileal conduit, frequent UTI was brought in with chief complaint of abdominal pain nausea vomiting, as well as fever. She is a [facility]. # small bowel obstruction with transition point in the right anterior hemiabdomen Seen on CT imaging on May 17, 2022. CT of the abdomen was performed and showed a new small bowel obstruction with transition point as noted above. NG tube to suction. S/p laparoscopic adhesion lysis for right hemiabdomen small bowel adhesion Continue Reglan Zofran #Severe Hypernatremia: Free water deficit: 5.9Ls Was on D5 water 125 cc an hour dose has been reduced to 50 cc/hr Monitor BMP #Hypokalemia: Monitor and replace serum potassium. # UTI Patient has a urostomy, history of staghorn calculi and complicated UTIs. CT abdomen 05/17 makes note of right-sided mild hydronephrosis. Discussed with urology and appreciate recommendations. No current intervention indicated from a urology perspective as findings are chronic. Urine culture from this admission growing Enterobacter cloacae, wound cx from foot ulcer with Pseudomonas and Klebsiella. Patient colonized with multiple gram negatives. Abx course meropenem 500mg iv q8h 05/12-05/17---> cefepime 2 g iv q8h on 05/18 in keeping with cx results, dosing optimized to cover Pseudomonas. Afberile since 05/16. Plan to complete total 10- 14 day course for complicated UTI # RLE patchy redness now resolved Lower extremity Doppler negative for DVT. #Fever: Resolved On TPN DVT prophylaxis: On subcu Lovenox CODE STATUS full code Attestations Medical Necessity Statement*: Needs to be in hospital for management of SBO. Coding Level of Care Code Acute Code for Chg Fwd Diagnoses History of urostomy Z98.890 GERD (gastroesophageal reflux disease) K21.9 Hypertension I10 Depression F32.9 Anxiety F41.9 Seizure R56.9 Multiple sclerosis G35 Paraplegia G82.20 Staghorn renal calculus N20.0 UTI (urinary tract infection) N39.0 Constipation K59.00 Decubitus ulcer, heel, right, unstageable L89.610 Generalized epilepsy G40.309 Hypernatremia E87.0
--- NOTE | 2022-05-27 15:53 | PM.PN ---
Subjective Subjective: Patient seen and examined. She still reports that she is passing flatus and having bowel movements. Denies any nausea or vomiting. Denies any abdominal pain Vitals/I&O/Wt Last Vital Signs Temp 98.6 F 05/27/22 12:00 Pulse 87 05/27/22 12:00 Resp 18 05/27/22 12:00 BP 125/80 05/27/22 12:00 Pulse Ox 96 05/27/22 12:00 O2 Del Method 05/27/22 03:43 05/27/22 05/27/22 05/27/22 06:59 14:59 22:59 Intake Total 300 / 1505 1550 / 1550 Output Total 150 / 1525 Balance 150 / -20 1550 / 1550 Physical Exam Narrative: General: No acute distress, awake alert and oriented x3 Abdomen: Soft, distended, appropriately tender to palpation, no guarding rebound or masses Incisions intact without erythema or exudate Data 05/27/22 04:35 05/27/22 06:08 A&P Assessment and plan (1) Partial small bowel obstruction: Plan Postoperative day #2 status post diagnostic laparoscopy with extensive lysis of adhesions N.p.o./NG tube to suction/TPN Medical management per hospitalist Await return of bowel function Attestations Medical Necessity Statement*: Patient requires multiple and diet advancement following surgery Coding Level of Care Code Acute Code for Chg Fwd Diagnoses Partial small bowel obstruction K56.600
[2022-05-27 16:00] VITALS: BP 139/82; PULSE 88; TEMP 36.7; O2SAT 98
[2022-05-27 17:31] LABS: Glucose Point of Care 103 mg/dL (70-110)
[2022-05-27 20:00] VITALS: BP 119/78; PULSE 83; RESP 22; TEMP 36.5; O2SAT 96
[2022-05-27 21:28] LABS: Glucose Point of Care 98 mg/dL (70-110)
[2022-05-27] MEDS: baclofen 10 mg Tablet 40 MG PO (21:58)
[2022-05-27] MEDS: dextrose 5% 1,000 ML 50 ML IV (21:59)
[2022-05-28] VITALS (8 sets, daily range): BP systolic 126–148; BP diastolic 71–89; PULSE 74–100; RESP 17–23; TEMP 36.4–36.7; O2SAT 95–99
[2022-05-28 01:58] LABS: Glucose Point of Care 108 mg/dL (70-110)
[2022-05-28] MEDS: cefepime 2,000 MG in sodium chloride 0.9% (plus) 50 ML 100 MG IV ×2 (02:39→09:41)
--- NOTE | 2022-05-28 03:13 | PC.NURSE ---
Chelsy with [facility] called to check if there were any updates on Mrs. Moraes since she is currently on a bed waitlist. She stated they were previously informed the patient may not need to be transferred to a higher level of care if patient had a bowel movement. Patient has had one loose/liquid bowel movement on this shift. Chelsy was informed patient has remained stable and that this nurse will pass on to day shift nurse to verify with the physician if we still need to transfer the patient out.
[2022-05-28 06:27] LABS: Glucose Point of Care 92 mg/dL (70-110)
[2022-05-28] MEDS: gabapentin 300 mg Capsule PO ×3 (09:40→21:12)
[2022-05-28] MEDS: levETIRAcetam 500 mg Tablet 1000 MG PO ×2 (09:40→18:15)
[2022-05-28] MEDS: enoxaparin 40 mg/0.4 mL Syringe SUBCUT (09:40)
[2022-05-28] MEDS: sennosides-docusate Tablet 1 TAB PO ×2 (09:41→18:15)
[2022-05-28] MEDS: venlafaxine ER (24HR) 150 mg Capsule PO (09:41)
[2022-05-28] MEDS: quetiapine 100 mg Tablet PO ×2 (09:41→18:15)
[2022-05-28] MEDS: pantoprazole DR 40 mg Tablet PO (09:41)
[2022-05-28 12:27] LABS: Glucose Point of Care 101 mg/dL (70-110)
--- NOTE | 2022-05-28 13:11 | PM.PN ---
Subjective Subjective: Seen and examined this morning denies any abdominal pain nausea vomiting, passing flatus, had bowel movement. Medications: Reviewed: Yes Medication Review Details: Generic Name Dose Route Start Last Admin Trade Name Freq PRN Reason Stop Dose Admin Acetaminophen 650 mg 05/12/22 21:04 05/14/22 23:32 Acetaminophen 32 5 Mg Tablet PO 650 mg Q6H PRN Administration Mild/Mod Pain Or Temp >/= 101 Baclofen 40 mg 05/12/22 23:15 05/27/22 21:58 Baclofen 10 Mg T ablet PO 40 mg BEDTIME BIJAN Administration Enoxaparin Sodium 40 mg 05/14/22 08:30 05/28/22 09:40 Enoxaparin 40 Mg /0.4 Ml Syringe SUBCUT 40 mg Q24H BIJAN Administration Gabapentin 300 mg 05/13/22 09:00 05/28/22 09:40 Gabapentin 300 M g Capsule PO 300 mg TID BIJAN Administration Cefepime HCl 2,000 mg/ Sodium 50 mls @ 100 mls/ hr 05/18/22 18:00 05/28/22 10:15 Chloride IV Infused Q8H BIJAN Infusion Protocol Dextrose 1,000 mls @ 50 ml s/hr 05/24/22 10:45 05/27/22 21:59 D5w IV 50 mls/hr .Q20H BIJAN Administration Amino Acids/Electr olytes 1,000 mls @ 42 ml s/hr 05/26/22 13:00 05/27/22 14:50 Clinimix E 5%-20 % IV 42 mls/hr .[id number] BIJAN Administration Fat Emulsion Intra venous 250 mls @ 20.833 mls/hr 05/26/22 13:30 05/28/22 04:36 Intralipid 20% IV Infused Q24H BIJAN Infusion Labetalol HCl 10 mg 05/20/22 20:18 05/22/22 01:55 Labetalol 5 Mg/M l Sdv 20ml IVP 10 mg Q4H PRN Administration HYPERTENSION Levetiracetam 1,000 mg 05/13/22 09:00 05/28/22 09:40 Levetiracetam 50 0 Mg Tablet PO 1,000 mg BID BIJAN Administration Metoclopramide HCl 5 mg 05/17/22 14:29 05/22/22 19:44 Metoclopramide 5 Mg/Ml Sdv 2 Ml IVP 5 mg Q6H PRN Administration NAUSEA AND VOMITI NG Ondansetron HCl 4 mg 05/12/22 21:04 05/21/22 16:11 Ondansetron 2 Mg /Ml Sdv 2 Ml IVP 4 mg Q8H PRN Administration vomiting, or N/V if npo Pantoprazole Sodiu m 40 mg 05/13/22 09:00 05/28/22 09:[address] 40 Mg Tablet PO 40 mg DAILY BIJAN Administration Phenol 5 spray 05/18/22 10:00 05/23/22 16:47 Phenol Oral Spra y 177 Ml MUCOUS MEM 5 spray Q2H PRN Administration SORE THROAT Quetiapine Fumarat e 100 mg 05/13/22 09:00 05/28/22 09:41 Quetiapine 100 M g Tablet PO 100 mg BID BIJAN Administration Senna/Docusate Sod ium 1 tab 05/13/22 09:00 05/28/22 09:41 Sennosides-Docus ate Tablet PO 1 tab BID BIJAN Administration Sodium Phosphate 133 ml 05/26/22 13:07 05/28/22 09:42 Fleet Enema 133 Ml Enema [place] 133 ml DAILY BIJAN Administration Venlafaxine HCl 150 mg 05/13/22 08:00 05/28/22 09:41 Venlafaxine Er ( 24hr) 150 Mg Capsu le PO 150 mg DAILY@08 BIJAN Administration Vitals/I&O/Wt Last Vital Signs Temp 97.6 F 05/28/22 12:00 Pulse 89 05/28/22 12:00 Resp 18 05/28/22 12:00 BP 135/82 05/28/22 12:00 Pulse Ox 99 05/28/22 12:00 O2 Del Method 05/28/22 11:20 O2 Flow Rate 2 05/28/22 11:20 FiO2 2 05/28/22 04:46 05/27/22 05/28/22 05/28/22 22:59 06:59 14:59 Intake Total 520.833 / 2070.833 300 / 2370.833 50 / 50 Output Total 700 / 700 750 / 1450 Balance -179.167 / 1370.833 -450 / 920.833 50 / 50 Physical Exam Const: COMMON NORMALS: patient oriented x3 Resp: COMMON NORMALS: clear to auscultation bilaterally EFFORT & INSPECTION: Yes symmetric chest movement AUSCULTATION: clear to auscultation bilaterally Cardio: COMMON NORMALS: regular rate, regular rhythm, S1 normal heart sound present, S2 normal heart sound present, No gallops present (Cardio), No murmurs present (Cardio), No rub (Cardio) and Peripheral pulses 2+ throughout RATE: regular rate RHYTHM: regular rhythm HEART SOUNDS: S1 normal heart sound present and S2 normal heart sound present PERIPHERAL PULSES: Peripheral pulses 2+ throughout GI: COMMON NORMALS: Normal to inspection, nondistended, normoactive bowel sounds present, Soft to palpation, non-tender, No hepatosplenomegaly present and no masses AUSCULTATION: Yes normoactive bowel sounds PALPATION: Yes Soft to palpation and Yes No hepatosplenomegaly present RECTAL EXAM: deferred Extremity: COMMON NORMALS: no clubbing, cyanosis or edema and no pedal edema Neuro: COMMON NORMALS: patient oriented x3 Data 05/27/22 04:35 05/27/22 06:08 A&P Assessment and plan (1) History of urostomy: (2) GERD (gastroesophageal reflux disease): (3) Hypertension: (4) Depression: (5) Anxiety: (6) Seizure: (7) Multiple sclerosis: (8) Paraplegia: (9) Staghorn renal calculus: (10) UTI (urinary tract infection): (11) Constipation: (12) Decubitus ulcer, heel, right, unstageable: (13) Generalized epilepsy: (14) Hypernatremia: Plan 52-year-old female with past medical history of multiple sclerosis, anxiety depression cerebellar tremor, hypertension seizure disorder renal calculi, urinary diversion with ileal conduit, frequent UTI was brought in with chief complaint of abdominal pain nausea vomiting, as well as fever. She is a residential resident. # small bowel obstruction with transition point in the right anterior hemiabdomen Seen on CT imaging on May 17, 2022. CT of the abdomen was performed and showed a new small bowel obstruction with transition point as noted above. NG tube to suction. S/p laparoscopic adhesion lysis for right hemiabdomen small bowel adhesion Continue Reglan Zofran #Severe Hypernatremia: Free water deficit: 5.9Ls Was on D5 water 125 cc an hour dose has been reduced to 50 cc/hr Monitor BMP #Hypokalemia: Monitor and replace serum potassium. # UTI Patient has a urostomy, history of staghorn calculi and complicated UTIs. CT abdomen 05/17 makes note of right-sided mild hydronephrosis. Discussed with urology and appreciate recommendations. No current intervention indicated from a urology perspective as findings are chronic. Urine culture from this admission growing Enterobacter cloacae, wound cx from foot ulcer with Pseudomonas and Klebsiella. Patient colonized with multiple gram negatives. Abx course meropenem 500mg iv q8h 05/12-05/17---> cefepime 2 g iv q8h on 05/18 in keeping with cx results, dosing optimized to cover Pseudomonas. Afberile since 05/16. Plan to complete total 10- 14 day course for complicated UTI # RLE patchy redness now resolved Lower extremity Doppler negative for DVT. #Fever: Resolved On TPN DVT prophylaxis: On subcu Lovenox CODE STATUS full code Attestations Medical Necessity Statement*: Is to be in hospital for management of sbo. Coding Level of Care Code Acute Code for Chg Fwd Diagnoses History of urostomy Z98.890 GERD (gastroesophageal reflux disease) K21.9 Hypertension I10 Depression F32.9 Anxiety F41.9 Seizure R56.9 Multiple sclerosis G35 Paraplegia G82.20 Staghorn renal calculus N20.0 UTI (urinary tract infection) N39.0 Constipation K59.00 Decubitus ulcer, heel, right, unstageable L89.610 Generalized epilepsy G40.309 Hypernatremia E87.0
[2022-05-28] MEDS: AA-Dex 5%-20% w/Lytes 1,000 ML 42 ML IV (15:33)
[2022-05-28 17:37] LABS: Glucose Point of Care 80 mg/dL (70-110)
--- NOTE | 2022-05-28 19:43 | PC.NURSE ---
1700 Dr Presley here and removed NGT and ordered clear liquid diet, notified that patient refused enema offered 3 times.
[2022-05-28] MEDS: baclofen 10 mg Tablet 40 MG PO (21:12)
[2022-05-28 22:13] LABS: Glucose Point of Care 105 mg/dL (70-110)
[2022-05-29] VITALS (7 sets, daily range): BP systolic 120–134; BP diastolic 72–98; PULSE 76–104; RESP 16–19; TEMP 36.1–36.8; O2SAT 96–100
[2022-05-29 02:48] LABS: Glucose Point of Care 109 mg/dL (70-110)
[2022-05-29 05:28] LABS: Basophils # 0.1 10^3/uL (0.0-0.1); Basophils % 0.4 %; Eosinophils # 0.4 10^3/uL (0.0-0.8); Eosinophils % 3.5 %; Hematocrit 40.5 % (37.0-47.0); Hemoglobin 12.2 g/dL (11.5-15.3); Lymphocytes # 3.2 10^3/uL (0.8-4.8); Lymphocytes % 26.9 %; Mean Corpuscular HGB Conc 30.1 g/dL (30.0-36.0); Mean Corpuscular Hemoglobin 29.9 pg (28.0-34.0); Mean Corpuscular Volume 99.3 fl (81-99); Mean Platelet Volume 11.4 fL (7.4-10.4); Monocytes # 1.1 10^3/uL (0.2-0.9); Monocytes % 9.4 %; Neutrophils # 6.89 10^3/uL (1.8-7.7); Neutrophils % 58.1 %; Nucleated Red Blood Cells % 0 %; Platelet Count 324 10^3/cmm (130-400); Red Blood Count 4.08 10^6/uL (4.1-5.3); Red Cell Distribution Width 13.2 % (12.1-15.1); White Blood Count 11.8 10^3/uL (4.0-10.0)
[2022-05-29 05:54] LABS: Anion Gap 14.8 (5-19); Blood Urea Nitrogen 20 mg/dL (6-20); Calcium 9.3 mg/dL (8.5-10.5); Carbon Dioxide 20 mmol/L (22-29); Chloride 108 mmol/L (98-107); Glomerular Filtration Rate 167.6 mL/min (90-130); Glucose 113 mg/dL (65-115); Osmolality Calculated 293 mOsm/kg (285-295); Sodium 140 mmol/L (136-145)
[2022-05-29 06:10] LABS: Creatinine Clr Calc Pharmacy 182.0435; Potassium 2.8 mmol/L (3.5-5.1)
[2022-05-29] MEDS: lidocaine 1% 5 ML in potassium chloride premix 100 ML 25 ML IV (06:30)
[2022-05-29 06:31] LABS: Glucose Point of Care 103 mg/dL (70-110)
[2022-05-29] MEDS: pantoprazole DR 40 mg Tablet PO (10:39)
[2022-05-29] MEDS: enoxaparin 40 mg/0.4 mL Syringe SUBCUT (10:39)
[2022-05-29] MEDS: quetiapine 100 mg Tablet PO ×2 (10:40→19:27)
[2022-05-29] MEDS: levETIRAcetam 500 mg Tablet 1000 MG PO ×2 (10:40→19:27)
[2022-05-29] MEDS: sennosides-docusate Tablet 1 TAB PO ×2 (10:40→19:27)
[2022-05-29] MEDS: venlafaxine ER (24HR) 150 mg Capsule PO (10:41)
[2022-05-29] MEDS: gabapentin 300 mg Capsule PO ×3 (10:41→21:21)
[2022-05-29 11:35] LABS: Glucose Point of Care 114 mg/dL (70-110)
--- NOTE | 2022-05-29 16:09 | PM.PN ---
Subjective Subjective: Seen and examined this morning denies any abdominal pain nausea vomiting, NG tube has been removed Tolerating regular diet. Medications: Reviewed: Yes Medication Review Details: Generic Name Dose Route Start Last Admin Trade Name Freq PRN Reason Stop Dose Admin Acetaminophen 650 mg 05/12/22 21:04 05/14/22 23:32 Acetaminophen 32 5 Mg Tablet PO 650 mg Q6H PRN Administration Mild/Mod Pain Or Temp >/= 101 Baclofen 40 mg 05/12/22 23:15 05/28/22 21:12 Baclofen 10 Mg T ablet PO 40 mg BEDTIME BIJAN Administration Enoxaparin Sodium 40 mg 05/14/22 08:30 05/29/22 10:39 Enoxaparin 40 Mg /0.4 Ml Syringe SUBCUT 40 mg Q24H BIJAN Administration Gabapentin 300 mg 05/13/22 09:00 05/29/22 10:41 Gabapentin 300 M g Capsule PO 300 mg TID BIJAN Administration Amino Acids/Electr olytes 1,000 mls @ 42 ml s/hr 05/26/22 13:00 05/28/22 15:33 Clinimix E 5%-20 % IV 42 mls/hr .[id number] BIJAN Administration Fat Emulsion Intra venous 250 mls @ 20.833 mls/hr 05/26/22 13:30 05/29/22 04:29 Intralipid 20% IV Infused Q24H BIJAN Infusion Labetalol HCl 10 mg 05/20/22 20:18 05/22/22 01:55 Labetalol 5 Mg/M l Sdv 20ml IVP 10 mg Q4H PRN Administration HYPERTENSION Levetiracetam 1,000 mg 05/13/22 09:00 05/29/22 10:40 Levetiracetam 50 0 Mg Tablet PO 1,000 mg BID BIJAN Administration Metoclopramide HCl 5 mg 05/17/22 14:29 05/22/22 19:44 Metoclopramide 5 Mg/Ml Sdv 2 Ml IVP 5 mg Q6H PRN Administration NAUSEA AND VOMITI NG Ondansetron HCl 4 mg 05/12/22 21:04 05/21/22 16:11 Ondansetron 2 Mg /Ml Sdv 2 Ml IVP 4 mg Q8H PRN Administration vomiting, or N/V if npo Pantoprazole Sodiu m 40 mg 05/13/22 09:00 05/29/22 10:[address] 40 Mg Tablet PO 40 mg DAILY BIJAN Administration Phenol 5 spray 05/18/22 10:00 05/23/22 16:47 Phenol Oral Spra y 177 Ml MUCOUS MEM 5 spray Q2H PRN Administration SORE THROAT Quetiapine Fumarat e 100 mg 05/13/22 09:00 05/29/22 10:40 Quetiapine 100 M g Tablet PO 100 mg BID BIJAN Administration Senna/Docusate Sod ium 1 tab 05/13/22 09:00 05/29/22 10:40 Sennosides-Docus ate Tablet PO 1 tab BID BIJAN Administration Sodium Phosphate 133 ml 05/26/22 13:07 05/28/22 15:47 Fleet Enema 133 Ml Enema HI Not Given DAILY [facility] Venlafaxine HCl 150 mg 05/13/22 08:00 05/29/22 10:41 Venlafaxine Er ( 24hr) 150 Mg Capsu le PO 150 mg DAILY@08 BIJAN Administration Vitals/I&O/Wt Last Vital Signs Temp 97.1 F L 05/29/22 15:54 Pulse 99 05/29/22 15:54 Resp 16 05/29/22 15:54 BP 120/77 05/29/22 15:54 Pulse Ox 98 05/29/22 15:54 O2 Del Method 05/29/22 09:10 O2 Flow Rate 2 05/28/22 11:20 FiO2 2 05/28/22 04:46 05/29/22 05/29/22 05/29/22 06:59 14:59 22:59 Intake Total 250 / 2510.833 835 / 835 Balance 250 / 1810.833 835 / 835 Physical Exam Const: COMMON NORMALS: patient oriented x3 Resp: COMMON NORMALS: clear to auscultation bilaterally EFFORT & INSPECTION: Yes symmetric chest movement AUSCULTATION: clear to auscultation bilaterally Cardio: COMMON NORMALS: regular rate, regular rhythm, S1 normal heart sound present, S2 normal heart sound present, No gallops present (Cardio), No murmurs present (Cardio), No rub (Cardio) and Peripheral pulses 2+ throughout RATE: regular rate RHYTHM: regular rhythm HEART SOUNDS: S1 normal heart sound present and S2 normal heart sound present PERIPHERAL PULSES: Peripheral pulses 2+ throughout GI: COMMON NORMALS: Normal to inspection, nondistended, normoactive bowel sounds present, Soft to palpation, non-tender, No hepatosplenomegaly present and no masses AUSCULTATION: Yes normoactive bowel sounds PALPATION: Yes Soft to palpation and Yes No hepatosplenomegaly present RECTAL EXAM: deferred Extremity: COMMON NORMALS: no clubbing, cyanosis or edema and no pedal edema Neuro: COMMON NORMALS: patient oriented x3 Data 05/29/22 04:46 05/29/22 04:46 A&P Assessment and plan (1) History of urostomy: (2) GERD (gastroesophageal reflux disease): (3) Hypertension: (4) Depression: (5) Anxiety: (6) Seizure: (7) Multiple sclerosis: (8) Paraplegia: (9) Staghorn renal calculus: (10) UTI (urinary tract infection): (11) Constipation: (12) Decubitus ulcer, heel, right, unstageable: (13) Generalized epilepsy: (14) Hypernatremia: Plan 52-year-old female with past medical history of multiple sclerosis, anxiety depression cerebellar tremor, hypertension seizure disorder renal calculi, urinary diversion with ileal conduit, frequent UTI was brought in with chief complaint of abdominal pain nausea vomiting, as well as fever. She is a [place] resident. # small bowel obstruction with transition point in the right anterior hemiabdomen Seen on CT imaging on May 17, 2022. CT of the abdomen was performed and showed a new small bowel obstruction with transition point as noted above. NG tube to suction. S/p laparoscopic adhesion lysis for right hemiabdomen small bowel adhesion Continue Reglan Zofran #Severe Hypernatremia: Free water deficit: 5.9Ls Was on D5 water 125 cc an hour dose has been reduced to 50 cc/hr Monitor BMP #Hypokalemia: Monitor and replace serum potassium. # UTI Patient has a urostomy, history of staghorn calculi and complicated UTIs. CT abdomen 05/17 makes note of right-sided mild hydronephrosis. Discussed with urology and appreciate recommendations. No current intervention indicated from a urology perspective as findings are chronic. Urine culture from this admission growing Enterobacter cloacae, wound cx from foot ulcer with Pseudomonas and Klebsiella. Patient colonized with multiple gram negatives. Abx course meropenem 500mg iv q8h 05/12-05/17---> cefepime 2 g iv q8h on 05/18 in keeping with cx results, dosing optimized to cover Pseudomonas. Afberile since 05/16. Plan to complete total 10- 14 day course for complicated UTI # RLE patchy redness now resolved Lower extremity Doppler negative for DVT. #Fever: Resolved Was On TPN DVT prophylaxis: On subcu Lovenox CODE STATUS full code Attestations Medical Necessity Statement*: In hospital for small bowel obstruction. Coding Level of Care Code Acute Code for Chg Fwd Exam Detailed Diagnoses History of urostomy Z98.890 GERD (gastroesophageal reflux disease) K21.9 Hypertension I10 Depression F32.9 Anxiety F41.9 Seizure R56.9 Multiple sclerosis G35 Paraplegia G82.20 Staghorn renal calculus N20.0 UTI (urinary tract infection) N39.0 Constipation K59.00 Decubitus ulcer, heel, right, unstageable L89.610 Generalized epilepsy G40.309 Hypernatremia E87.0
[2022-05-29] MEDS: AA-Dex 5%-20% w/Lytes 1,000 ML 42 ML IV (16:10)
[2022-05-29 16:53] LABS: Glucose Point of Care 91 mg/dL (70-110)
--- NOTE | 2022-05-29 17:16 | PM.PN ---
Subjective Subjective: Patient seen and examined. Tolerating clear liquids without nausea or emesis. Positive BM/flatus Vitals/I&O/Wt Last Vital Signs Temp 97.1 F L 05/29/22 15:54 Pulse 99 05/29/22 15:54 Resp 16 05/29/22 15:54 BP 120/77 05/29/22 15:54 Pulse Ox 98 05/29/22 15:54 O2 Del Method 05/29/22 09:10 O2 Flow Rate 2 05/28/22 11:20 FiO2 2 05/28/22 04:46 05/29/22 05/29/22 05/29/22 06:59 14:59 22:59 Intake Total 250 / 2510.833 835 / 835 1000 / 1835 Balance 250 / 1810.833 835 / 835 1000 / 1835 Physical Exam Narrative: General: No acute distress, awake alert and oriented x3 Abdomen: Soft, distended, appropriately tender to palpation, no guarding rebound or masses Incisions intact without erythema or exudate Data 05/29/22 04:46 05/29/22 04:46 A&P Assessment and plan (1) Partial small bowel obstruction: Plan Postoperative day #3 status post diagnostic laparoscopy with extensive lysis of adhesions Regular diet Medical management per hospitalist Surgically stable for discharge Attestations Medical Necessity Statement*: Further hospitalization per hospitalist Coding Level of Care Code Acute Code for Chg Fwd Diagnoses Partial small bowel obstruction K56.600
[2022-05-29] MEDS: baclofen 10 mg Tablet 40 MG PO (21:21)
[2022-05-29 21:47] LABS: Glucose Point of Care 118 mg/dL (70-110)
[2022-05-30] VITALS (8 sets, daily range): BP systolic 110–137; BP diastolic 74–90; PULSE 93–108; RESP 16–20; TEMP 36.3–37.5; O2SAT 95–97
[2022-05-30 02:41] LABS: Glucose Point of Care 117 mg/dL (70-110)
[2022-05-30 05:49] LABS: Basophils # 0.1 10^3/uL (0.0-0.1); Basophils % 0.5 %; Eosinophils # 0.3 10^3/uL (0.0-0.8); Eosinophils % 2.7 %; Hematocrit 39.1 % (37.0-47.0); Lymphocytes % 29.3 %; Mean Corpuscular HGB Conc 30.7 g/dL (30.0-36.0); Mean Corpuscular Hemoglobin 30.5 pg (28.0-34.0); Mean Corpuscular Volume 99.2 fl (81-99); Mean Platelet Volume 11.3 fL (7.4-10.4); Monocytes # 1.1 10^3/uL (0.2-0.9); Monocytes % 10.6 %; Neutrophils # 5.63 10^3/uL (1.8-7.7); Neutrophils % 55.3 %; Nucleated Red Blood Cells % 0 %; Platelet Count 327 10^3/cmm (130-400); Red Blood Count 3.94 10^6/uL (4.1-5.3); Red Cell Distribution Width 13.5 % (12.1-15.1); White Blood Count 10.2 10^3/uL (4.0-10.0)
[2022-05-30 06:30] LABS: Anion Gap 14.7 (5-19); Blood Urea Nitrogen 18 mg/dL (6-20); Calcium 9.2 mg/dL (8.5-10.5); Carbon Dioxide 19 mmol/L (22-29); Chloride 109 mmol/L (98-107); Creatinine Clr Calc Pharmacy 242.7246; Glomerular Filtration Rate 233.6 mL/min (90-130); Glucose 118 mg/dL (65-115); Osmolality Calculated 291 mOsm/kg (285-295); Potassium 3.7 mmol/L (3.5-5.1); Sodium 139 mmol/L (136-145)
[2022-05-30 06:43] LABS: Glucose Point of Care 115 mg/dL (70-110)
[2022-05-30] MEDS: enoxaparin 40 mg/0.4 mL Syringe SUBCUT (09:02)
[2022-05-30] MEDS: quetiapine 100 mg Tablet PO ×2 (09:02→17:54)
[2022-05-30] MEDS: levETIRAcetam 500 mg Tablet 1000 MG PO ×2 (09:02→17:54)
[2022-05-30] MEDS: venlafaxine ER (24HR) 150 mg Capsule PO (09:03)
[2022-05-30] MEDS: pantoprazole DR 40 mg Tablet PO (09:03)
[2022-05-30] MEDS: gabapentin 300 mg Capsule PO ×3 (09:03→21:53)
[2022-05-30] MEDS: sennosides-docusate Tablet 1 TAB PO ×2 (09:03→17:54)
--- NOTE | 2022-05-30 14:15 | PM.PN ---
Subjective Subjective: Seen and examined this morning denies any abdominal pain nausea vomiting, Tolerating regular diet. Medications: Reviewed: Yes Medication Review Details: Generic Name Dose Route Start Last Admin Trade Name Freq PRN Reason Stop Dose Admin Acetaminophen 650 mg 05/12/22 21:04 05/14/22 23:32 Acetaminophen 32 5 Mg Tablet PO 650 mg Q6H PRN Administration Mild/Mod Pain Or Temp >/= 101 Baclofen 40 mg 05/12/22 23:15 05/29/22 21:21 Baclofen 10 Mg T ablet PO 40 mg BEDTIME BIJAN Administration Enoxaparin Sodium 40 mg 05/14/22 08:30 05/30/22 09:02 Enoxaparin 40 Mg /0.4 Ml Syringe SUBCUT 40 mg Q24H BIJAN Administration Gabapentin 300 mg 05/13/22 09:00 05/30/22 09:03 Gabapentin 300 M g Capsule PO 300 mg TID BIJAN Administration Labetalol HCl 10 mg 05/20/22 20:18 05/22/22 01:55 Labetalol 5 Mg/M l Sdv 20ml IVP 10 mg Q4H PRN Administration HYPERTENSION Levetiracetam 1,000 mg 05/13/22 09:00 05/30/22 09:02 Levetiracetam 50 0 Mg Tablet PO 1,000 mg BID BIJAN Administration Metoclopramide HCl 5 mg 05/17/22 14:29 05/22/22 19:44 Metoclopramide 5 Mg/Ml Sdv 2 Ml IVP 5 mg Q6H PRN Administration NAUSEA AND VOMITI NG Ondansetron HCl 4 mg 05/12/22 21:04 05/21/22 16:11 Ondansetron 2 Mg /Ml Sdv 2 Ml IVP 4 mg Q8H PRN Administration vomiting, or N/V if npo Pantoprazole Sodiu m 40 mg 05/13/22 09:00 05/30/22 09:[address] 40 Mg Tablet PO 40 mg DAILY BIJAN Administration Phenol 5 spray 05/18/22 10:00 05/23/22 16:47 Phenol Oral Spra y 177 Ml MUCOUS MEM 5 spray Q2H PRN Administration SORE THROAT Quetiapine Fumarat e 100 mg 05/13/22 09:00 05/30/22 09:02 Quetiapine 100 M g Tablet PO 100 mg BID BIJAN Administration Senna/Docusate Sod ium 1 tab 05/13/22 09:00 05/30/22 09:03 Sennosides-Docus ate Tablet PO 1 tab BID BIJAN Administration Sodium Phosphate 133 ml 05/26/22 13:07 05/30/22 09:15 Fleet Enema 133 Ml Enema GA Not Given DAILY [facility] Venlafaxine HCl 150 mg 05/13/22 08:00 05/30/22 09:03 Venlafaxine Er ( 24hr) 150 Mg Capsu le PO 150 mg DAILY@08 BIJAN Administration Vitals/I&O/Wt Last Vital Signs Temp 98.1 F 05/30/22 11:57 Pulse 98 05/30/22 11:57 Resp 18 05/30/22 11:57 BP 120/78 05/30/22 11:57 Pulse Ox 95 05/30/22 11:57 O2 Del Method 05/30/22 11:57 O2 Flow Rate 2 05/28/22 11:20 FiO2 2 05/28/22 04:46 05/29/22 05/30/22 05/30/22 22:59 06:59 14:59 Intake Total 1380 / 2215 250 / 2465 1077.5 / 1077.5 Output Total 400 / 400 320 / 720 Balance 980 / 1815 -70 / 1745 1077.5 / 1077.5 Physical Exam Const: COMMON NORMALS: patient oriented x3 Resp: COMMON NORMALS: clear to auscultation bilaterally EFFORT & INSPECTION: Yes symmetric chest movement AUSCULTATION: clear to auscultation bilaterally Cardio: COMMON NORMALS: regular rate, regular rhythm, S1 normal heart sound present, S2 normal heart sound present, No gallops present (Cardio), No murmurs present (Cardio), No rub (Cardio) and Peripheral pulses 2+ throughout RATE: regular rate RHYTHM: regular rhythm HEART SOUNDS: S1 normal heart sound present and S2 normal heart sound present PERIPHERAL PULSES: Peripheral pulses 2+ throughout GI: COMMON NORMALS: Normal to inspection, nondistended, normoactive bowel sounds present, Soft to palpation, non-tender, No hepatosplenomegaly present and no masses AUSCULTATION: Yes normoactive bowel sounds PALPATION: Yes Soft to palpation and Yes No hepatosplenomegaly present RECTAL EXAM: deferred Extremity: COMMON NORMALS: no clubbing, cyanosis or edema and no pedal edema Neuro: COMMON NORMALS: patient oriented x3 Data 05/30/22 05:00 05/30/22 05:00 A&P Assessment and plan (1) History of urostomy: (2) GERD (gastroesophageal reflux disease): (3) Hypertension: (4) Depression: (5) Anxiety: (6) Seizure: (7) Multiple sclerosis: (8) Paraplegia: (9) Staghorn renal calculus: (10) UTI (urinary tract infection): (11) Constipation: (12) Decubitus ulcer, heel, right, unstageable: (13) Generalized epilepsy: (14) Hypernatremia: Plan 52-year-old female with past medical history of multiple sclerosis, anxiety depression cerebellar tremor, hypertension seizure disorder renal calculi, urinary diversion with ileal conduit, frequent UTI was brought in with chief complaint of abdominal pain nausea vomiting, as well as fever. She is a halfway resident. # small bowel obstruction with transition point in the right anterior hemiabdomen Seen on CT imaging on May 17, 2022. CT of the abdomen was performed and showed a new small bowel obstruction with transition point as noted above.Was on NG tube initially on suction. Due to failure of improvement she underwent laparoscopic adhesion lysis for right hemiabdomen small bowel adhesion.Tolerated the procedure well Has done well postprocedure so far. #Severe Hypernatremia: Free water deficit: 5.9Ls Was on D5 water 125 cc an hour dose has been reduced to 50 cc/hr Monitor BMP #Hypokalemia: Monitor and replace serum potassium. # UTI Patient has a urostomy, history of staghorn calculi and complicated UTIs. CT abdomen 05/17 makes note of right-sided mild hydronephrosis. Discussed with urology and appreciate recommendations. No current intervention indicated from a urology perspective as findings are chronic. Urine culture from this admission growing Enterobacter cloacae, wound cx from foot ulcer with Pseudomonas and Klebsiella. Patient colonized with multiple gram negatives. Patient was appropriately covered with broad-spectrum antibiotic initially on meropenem then with cefepime has completed the antibiotic course for complicated UTI. Currently not on antibiotics # RLE patchy redness now resolved Lower extremity Doppler negative for DVT. #Fever: Resolved Was On TPN DVT prophylaxis: On subcu Lovenox CODE STATUS full code Attestations Medical Necessity Statement*: Currently awaiting halfway placement. Coding Level of Care Code Acute Code for Chg Fwd Diagnoses History of urostomy Z98.890 GERD (gastroesophageal reflux disease) K21.9 Hypertension I10 Depression F32.9 Anxiety F41.9 Seizure R56.9 Multiple sclerosis G35 Paraplegia G82.20 Staghorn renal calculus N20.0 UTI (urinary tract infection) N39.0 Constipation K59.00 Decubitus ulcer, heel, right, unstageable L89.610 Generalized epilepsy G40.309 Hypernatremia E87.0
--- NOTE | 2022-05-30 17:01 | PM.PN ---
Subjective Subjective: Patient seen and examined. Tolerating regular diet without nausea or emesis. Positive BM/flatus Vitals/I&O/Wt Last Vital Signs Temp 97.4 F L 05/30/22 16:00 Pulse 93 05/30/22 16:00 Resp 18 05/30/22 16:00 BP 120/85 05/30/22 16:00 Pulse Ox 97 05/30/22 16:00 O2 Del Method 05/30/22 16:00 O2 Flow Rate 2 05/28/22 11:20 FiO2 2 05/28/22 04:46 05/30/22 05/30/22 05/30/22 06:59 14:59 22:59 Intake Total 250 / 2465 1077.5 / 1077.5 Output Total 320 / 720 Balance -70 / 1745 1077.5 / 1077.5 Physical Exam Narrative: General: No acute distress, awake alert and oriented x3 Abdomen: Soft, distended, appropriately tender to palpation, no guarding rebound or masses Incisions intact without erythema or exudate Data 05/30/22 05:00 05/30/22 05:00 A&P Assessment and plan (1) Partial small bowel obstruction: Plan Postoperative day #4 status post diagnostic laparoscopy with extensive lysis of adhesions Regular diet Medical management per hospitalist Surgically stable for discharge Attestations Medical Necessity Statement*: Further hospitalization per hospitalist Coding Level of Care Code Acute Code for Chg Fwd Diagnoses Partial small bowel obstruction K56.600
[2022-05-30 18:54] LABS: SARS Covid-2 Antigen negative (Negative)
[2022-05-30 21:00] LABS: Glucose Point of Care 82 mg/dL (70-110)
[2022-05-30] MEDS: baclofen 10 mg Tablet 40 MG PO (21:53)
[2022-05-31 03:26] VITALS: BP 115/76; PULSE 98; RESP 16; TEMP 36.4; O2SAT 98
[2022-05-31 04:53] LABS: Basophils % 0.3 %; Eosinophils # 0.2 10^3/uL (0.0-0.8); Eosinophils % 1.8 %; Hematocrit 40.1 % (37.0-47.0); Hemoglobin 12.1 g/dL (11.5-15.3); Lymphocytes # 2.9 10^3/uL (0.8-4.8); Lymphocytes % 22.2 %; Mean Corpuscular HGB Conc 30.2 g/dL (30.0-36.0); Mean Corpuscular Volume 99.3 fl (81-99); Mean Platelet Volume 11.3 fL (7.4-10.4); Monocytes # 1.4 10^3/uL (0.2-0.9); Monocytes % 10.6 %; Neutrophils # 8.39 10^3/uL (1.8-7.7); Neutrophils % 63.8 %; Nucleated Red Blood Cells % 0 %; Platelet Count 343 10^3/cmm (130-400); Red Blood Count 4.04 10^6/uL (4.1-5.3); Red Cell Distribution Width 13.5 % (12.1-15.1); White Blood Count 13.2 10^3/uL (4.0-10.0)
[2022-05-31 05:06] LABS: Anion Gap 14.3 (5-19); Blood Urea Nitrogen 15 mg/dL (6-20); Calcium 8.7 mg/dL (8.5-10.5); Carbon Dioxide 18 mmol/L (22-29); Chloride 106 mmol/L (98-107); Glomerular Filtration Rate 233.6 mL/min (90-130); Glucose 103 mg/dL (65-115); Osmolality Calculated 281 mOsm/kg (285-295); Potassium 3.3 mmol/L (3.5-5.1); Sodium 135 mmol/L (136-145)
[2022-05-31 05:15] LABS: Creatinine Clr Calc Pharmacy 242.7246
[2022-05-31 06:51] LABS: Glucose Point of Care 91 mg/dL (70-110)
[2022-05-31 07:56] VITALS: BP 119/79; PULSE 91; RESP 18; TEMP 36.3; O2SAT 98
[2022-05-31] MEDS: sennosides-docusate Tablet 1 TAB PO (08:49)
[2022-05-31] MEDS: levETIRAcetam 500 mg Tablet 1000 MG PO (08:49)
[2022-05-31] MEDS: pantoprazole DR 40 mg Tablet PO (08:49)
[2022-05-31] MEDS: quetiapine 100 mg Tablet PO (08:49)
[2022-05-31] MEDS: enoxaparin 40 mg/0.4 mL Syringe SUBCUT (08:49)
[2022-05-31] MEDS: gabapentin 300 mg Capsule PO ×2 (08:49→16:10)
[2022-05-31] MEDS: venlafaxine ER (24HR) 150 mg Capsule PO (08:49)
[2022-05-31 12:00] VITALS: BP 118/80; PULSE 95; RESP 18; TEMP 36.3; O2SAT 97
--- NOTE | 2022-05-31 12:57 | P.DS_ITS ---
Discharge Providers Date of Admission: 05/12/22 21:52 Date of Discharge: May 31, 2022 Attending Provider at Admission: Tess Tay MD Attending Provider at Discharge: Oren Garcia MD Diagnoses at Discharge Discharge Diagnosis (1) Partial small bowel obstruction: Status: Acute Reason for Visit Reason for Visit: Fever Brief History: History as per HPI: Initially admitted 05/12/22 Teresa Moraes is a 52 year old female multiple medical history of multiple sclerosis, depression, anxiety, cerebellar tremor, depression, GERD, hypertension, seizures, staghorn renal calculus, struvite kidney stones, frequent UTIs, wound on plantar surface of foot presented to the hospital today from longterm for complaint of nausea vomiting along with abdominal discomfort.? She has had a fever as high as 103.? She states that she gets the symptoms when she has a UTI.? Denies a cough, diarrhea or constipation otherwise.? She says all of this started pretty much suddenly at 2 PM this afternoon after she had had lunch.? She had scheduled potatoes and ham.? She suspects that the food was not cooked properly and that is the cause of her nausea vomiting however she also feels she has a UTI.? She says her urine is much darker and smells very foul.? Sees Dr. Ley for her MS.? Patient has urostomy in place.? She is chronically bedbound.? She recently saw Dr. Coulter at wound care clinic on 05 May for her lateral pressure wound related to contractures and positioning.? Debridement was performed.? Patient was recommen ded collagen with silver as primary product along with silicone bordered foam gauze dressing.? Continue offloading maneuvers.? Patient to follow-up again in 1 week. ER course: 150/84, respirations 16, pulse 118, temperature 103.1.? Chest x-ray shows no acute findings.? CT abdomen pelvis showed large rectosigmoid stool suspicious for impaction, bilateral renal calculi.? Urostomy in place with small very stomal hernia. Hospital Course Hospital Course Patient was initially admitted for further management of fever secondary to complicated UTI in setting of staghorn renal calculus and cellulitis. She was started on broad-spectrum antibiotics. On admission CT scan was also consistent with significant constipation. Her blood cultures remain negative the urine cultures were positive for Enterobacter cloacae. Antibiotics were changed as per culture sensitivities. Given her history of renal calculi urology was co nsulted and recommended conservative treatment for now with close follow-up for need of percutaneous nephrostomy tube with antegrade nephrostogram if patient does not improve. Patient responded well to the treatment and UTI resolved though her hospitalization was complicated by her developing partial small bowel obstruction for which surgery was consulted who recommended conservative treatment at first. NG tube was placed and patient was asked to be transferred to higher center as per surgical recommendation because of concerns for presence of ileal conduit. As transfer was not possible given constrains in bed at tertiary hospital patient finally underwent right hemiabdomen small bowel additional lysis through diagnostic laparoscopy. Postoperative stay was unremarkable and diet was advanced gradually. She has been discharged back to SNF for further rehabitation at her baseline health. Physical Exam Narrative: General: No acute distress, AO x3 HEENT: PERRLA, pupils bilaterally equal and reactive, pallors not present Chest: Normal vesicular breath sounds, no added sounds, equal good air entry bilaterally CVS: S1-S2 regular, no murmurs, no tachycardia, no gallops, no rubs Abdomen: Soft, nontender, no organomegaly, bowel sounds present Discharge Data Studies Completed and Pending Completed Studies During Hospitalization Category Date Time Status CT abdomen pelvis wo con [id number] Stat Cat Scan 05/12/22 18:[address] abdomen wo/w con [id number] Routine Cat Scan 05/17/22 18:38 Completed FL Ileo Loopogram [id number] Routine Exams 05/21/22 Completed [place] small [place] gastro [id number] Routine Exams 05/21/22 07:00 Completed XR KUB [id number] Routine Exams 05/21/22 Completed XR KUB portable [id number] Routine Exams 05/22/22 08:28 Completed XR abdomen 1V* [id number] Routine Exams 05/19/22 11:42 Completed XR acute abdomen series [id number] Routine Exams 05/19/22 08:22 Completed XR acute abdomen series [id number] Routine Exams 05/20/22 09:17 Completed XR acute abdomen series [id number] Routine Exams 05/25/22 08:01 Completed XR chest 1V portable [id number] Routine Exams 05/25/22 15:34 Completed XR chest 1V portable [id number] Stat Exams 05/12/22 18:22 Completed XR chest 1V portable [id number] Stat Exams 05/22/22 16:22 Completed XR chest 1V portable [id number] Stat Exams 05/26/22 01:25 [place] [id number] Routine Ultrasound 05/17/22 14:17 Completed Radiology Impressions Abdomen/Pelvis CT 05/12/22 18:34 IMPRESSION: Large rectosigmoid stool suspicious for impaction. Bilateral renal calculi. Urostomy in place with small peristomal hernia Abdomen CT 05/17/22 18:38 IMPRESSION: 1. New small-bowel obstruction with transition point in the right anterior hemiabdomen, just posterior to a small bowel anastomosis. There are findings suspicious for an internal hernia at the transition site. Recommend clinical correlation and surgical consultation. 2. Stable findings suspicious for rectal fecal impaction with underlying marked constipation. 3. Small mvpw-lehlemw-dsld-right pleural effusions with adjacent bilateral lower lobe consolidation, new since previous. Correlate for pneumonia. 4. Stable bilateral renal calculi. Stable urostomy with stable small peristomal hernia. ADDENDUM: 05/17/22 2352 THIS REPORT CONTAINS FINDINGS THAT MAY BE CRITICAL TO PATIENT CARE. The findings were verbally communicated via telephone conference with Dr. Hebert at 11:50 PM ADMINISTRATION ASSISTANT on 05/17/2022. The findings were acknowledged and understood. Abdomen X-Ray 05/19/22 11:42 IMPRESSION: Limited study. No free air detected. Ileo Loopogram 05/21/22 00:00 IMPRESSION: The examination reveals bilateral ureteral anastomosis with a loop of bowel which extends to the skin is an ostomy site for the drainage of urine. Small Bowel X-Ray 05/21/22 07:00 IMPRESSION: Contrast opacifies multiple dilated small bowel loops, loops becoming larger more distally. Contrast has not reached the colon after an hour and 20 minutes. KUB X-Ray 05/22/22 08:28 IMPRESSION: 1. Large amount of colonic fecal material with partially visualized dilated small bowel, possible ileus. Follow-up is recommended. 2. The nasogastric tube is projecting in the proximal gastric lumen and could be further advanced for improved positioning. Chest/Abdomen X-ray 05/25/22 08:01 Impression: 1. Dilated small bowel in left side of the abdomen which may represent a localized ileus or small bowel obstruction. 2. Large amount of fecal material in the descending colon and rectum. 3. Nasogastric tube ends in the fundus of the stomach. 4. Right renal calcifications. Chest X-Ray 05/26/22 01:25 IMPRESSION: Right PICC and NGT are in place. Laboratory Results WBC 13.2 10^3/uL (4.0-10.0) H 05/31/22 03:59 RBC 4.04 10^6/uL (4.1-5.3) L 05/31/22 03:59 Hgb 12.1 g/dL (11.5-15.3) 05/31/22 03:59 Hct 40.1 % (37.0-47.0) 05/31/22 03:59 MCV 99.3 fl (81-99) H 05/31/22 03:59 MCH 30.0 pg (28.0-34.0) 05/31/22 03:59 MCHC 30.2 g/dL (30.0-36.0) 05/31/22 03:59 RDW 13.5 % (12.1-15.1) 05/31/22 03:59 Plt Count 343 10^3/cmm (130-400) 05/31/22 03:59 MPV 11.3 fL (7.4-10.4) H 05/31/22 03:59 Neut % (Auto) 63.8 % 05/31/22 03:59 Lymph % (Auto) 22.2 % 05/31/22 03:59 Graham % (Auto) 10.6 % 05/31/22 03:59 Eos % (Auto) 1.8 % 05/31/22 03:59 Baso % (Auto) 0.3 % 05/31/22 03:59 Neut # (Auto) 8.39 10^3/uL (1.8-7.7) H 05/31/22 03:59 Lymph # (Auto) 2.9 10^3/uL (0.8-4.8) 05/31/22 03:59 Graham # (Auto) 1.4 10^3/uL (0.2-0.9) H 05/31/22 03:59 Eos # (Auto) 0.2 10^3/uL (0.0-0.8) 05/31/22 03:59 Baso # (Auto) 0.0 10^3/uL (0.0-0.1) 05/31/22 03:59 Nucleated RBC % (auto) 0 % 05/31/22 03:59 Total Counted 100 (0-100) 05/18/22 02:30 Atypical Lymphs % 5.0 % (0-5) 05/18/22 02:30 Absolute Neutrophils 12.8 10^3/cmm (1.4-6.5) H 05/18/22 02:30 Segmented Neutrophils 73 % 05/18/22 02:30 Abs Segm Neuts (Man) 12.8 10/cmm (1.6-7.1) H 05/18/22 02:30 Band Neutrophils 0.0 % 05/18/22 02:30 Abs Band Neuts (Man) 0.0 10^3/cmm (0.0-1.2) 05/18/22 02:30 Absolute Lymphocytes 3.2 10^3/cmm (1.2-3.4) 05/18/22 02:30 Lymphocytes (Manual) 13 % 05/18/22 02:30 Monocytes (Manual) 9.0 % 05/18/22 02:30 Absolute Monocytes 1.6 10^3/cmm (0.1-0.6) H 05/18/22 02:30 Eosinophils (Manual) 0 % 05/18/22 02:30 Absolute Eosinophils 0.0 10^3/cmm (0.0-0.7) 05/18/22 02:30 Basophils (Manual) 0.0 % 05/18/22 02:30 Absolute Basophils 0.0 10^3/cmm (0.0-0.2) 05/18/22 02:30 Nucleated RBCs # 0.0 /100WBC 05/31/22 03:59 Platelet Estimate Increased (Normal) H 05/18/22 02:30 Sodium 135 mmol/L (136-145) L 05/31/22 03:59 Potassium 3.3 mmol/L (3.5-5.1) L 05/31/22 03:59 Chloride 106 mmol/L (98-107) 05/31/22 03:59 Carbon Dioxide 18 mmol/L (22-29) L 05/31/22 03:59 Anion Gap 14.3 (5-19) 05/31/22 03:59 BUN 15 mg/dL (6-20) 05/31/22 03:59 Creatinine 0.3 mg/dL (0.5-0.9) L 05/31/22 03:59 GFR Calculation 233.6 mL/min (90-130) H 05/31/22 03:59 Glucose 103 mg/dL (65-115) 05/31/22 03:59 POC Glucose 91 mg/dL (70-110) 05/31/22 06:33 Calculated Osmolality 281 mOsm/kg (285-295) L 05/31/22 03:59 Lactate 0.7 mmol/L (0.5-2.2) 05/18/22 02:30 Calcium 8.7 mg/dL (8.5-10.5) 05/31/22 03:59 Magnesium 1.8 mg/dL (1.7-2.3) 05/13/22 03:31 Total Bilirubin 0.5 mg/dL (0.15-1.2) 05/27/22 06:08 AST 49 U/L (0-32) H 05/27/22 06:08 ALT 87 U/L (0-33) H 05/27/22 06:08 Alkaline Phosphatase 114 U/L (35-105) H 05/27/22 06:08 Creatine Kinase 27 U/L (26-192) 05/19/22 05:36 Total Protein 7.4 g/dL (6.6-8.7) 05/27/22 06:08 Albumin 3.3 g/dL (3.5-5.2) L 05/27/22 06:08 Globulin 4.1 g/dL (1.3-4.6) 05/27/22 06:08 Lipase 44 U/L (13-60) 05/12/22 18:30 Procalcitonin 0.06 ng/mL (0-0.5) 05/19/22 05:36 TSH 0.89 uIU/mL (0.27-4.20) 05/12/22 18:30 Urine Color Yellow (Yellow) 05/12/22 20:00 Urine Appearance Cloudy (CLEAR) A 05/12/22 20:00 Urine pH 7 (5-7) 05/12/22 20:00 Ur Specific [place] 1.005 (1.005-1.030) 05/12/22 20:00 Urine Protein Neg (Negative) 05/12/22 20:00 Urine Glucose (UA) Norm (Normal) 05/12/22 20:00 Urine Ketones Negative (Negative) 05/12/22 20:00 Urine Blood Neg (Negative) 05/12/22 20:00 Urine Nitrate Positive (Negative) H 05/12/22 20:00 Urine Bilirubin Neg (Negative) 05/12/22 20:00 Urine Urobilinogen Norm mg/dL (Negative) 05/12/22 20:00 Ur Leukocyte Esterase Negative (Negative) 05/12/22 20:00 Urine RBC 0-4 /hpf (0-2) H 05/12/22 20:00 Urine WBC 5-10 /hpf (0-5) H 05/12/22 20:00 Ur Squamous Epith Cells None /hpf (0-5) 05/12/22 20:00 Amorphous Sediment Not Reportable 05/12/22 20:00 Urine Bacteria 4+ /hpf (NONE) H 05/12/22 20:00 Vancomycin Trough 5.8 ug/mL (10-15) L 05/19/22 09:00 Influenza Type A Ag Negative (Negative) 05/12/22 20:06 Influenza Type B Ag Negative (Negative) 05/12/22 20:06 SARS-CoV-2 Ag (Rapid) negative (Negative) 05/30/22 18:26 Vitals Last Vital Signs Temp 97.4 F L 05/31/22 12:00 Pulse 95 05/31/22 12:00 Resp 18 05/31/22 12:00 BP 118/80 05/31/22 12:00 Pulse Ox 97 05/31/22 12:00 O2 Del Method 05/31/22 12:00 O2 Flow Rate 2 05/28/22 11:20 FiO2 2 05/28/22 04:46 Discharge Plan Discharge Patient Disposition: Xfer SNF Condition: Stable Prescriptions: Continued melatonin 5 mg tablet 5 mg PO BEDTIME@20 potassium chloride 20 mEq tablet extended release 20 meq PO BID@08,17 polyethylene glycol 3350 [Miralax] 17 gram/dose powder 4 g PO DAILY fluticasone propion-salmeterol [Advair Diskus] 500-50 mcg/dose blister with device 1 inh inhalation BID levetiracetam [Keppra] 1,000 mg tablet 1,000 mg PO BID Lactobacillus acidophilus 1 billion cell capsule 1,000 mmu cells PO BID gabapentin 300 mg capsule 300 mg PO TID magnesium hydroxide 400 mg/5 mL suspension 30 ml PO BID PRN (Reason: Unknown) acetaminophen 650 mg tablet extended release 650 mg PO Q6H PRN (Reason: pain) guaifenesin 200 mg/5 mL liquid 150 mg PO Q4H PRN (Reason: Cough) albuterol sulfate [ProAir HFA] 90 mcg/actuation HFA aerosol inhaler 2 puff inhalation QID loratadine 10 mg tablet 10 mg PO DAILY@08 Fleet Enema 19-7 gram/118 mL Enema 118 ml NC DAILY PRN (Reason: Constipation) sennosides-docusate sodium [Senna with Docusate Sodium] 8.6-50 mg tablet 1 tab-cap PO BID Qty: 30 0RF omeprazole 20 mg capsule,delayed release(DR/EC) 20 mg PO DAILY Betaseron 0.3 mg kit 0.25 mg SUBCUT Q48H Rx Instructions: Q48HRS Senokot 8.6 mg Tablet 8.6 mg PO BID Effexor XR 150 mg Capsule,Extended Release 24hr 150 mg PO DAILY baclofen 20 mg tablet 20 mg PO TID ketoconazole 2 % Shampoo 1 applic TOPICAL Q14D Hiprex 1 gram Tablet 1 g PO QID ketoconazole 2 % Cream 1 applic TOPICAL DAILY Vimpat 200 mg Tablet 200 mg PO BID simethicone 80 mg Tablet,Chewable 80 mg PO QID PRN (Reason: Gastrointestinal Spasms Or Cramping) [place] Saline 0.65 % Aerosol,[place] 1 spray INTRANASAL BID PRN (Reason: Congestion) melatonin 5 mg Tablet 5 mg PO BEDTIME Discharge Orders: Discharge Order (Routine); Ordered 05/31/22 Ordered By: Oren Garcia Referrals: [facility] [Outside] Tony Keys MD [Physician] - Discharge Diet: Regular Discharge Activity: Resume usual activity and Increase activity as tolerated Patient Instructions: Bowel Obstruction (GEN), Opioid Safety Activity Restrictions/Additional Instructions: Please follow-up with a primary care provider within next 1 week. Please continue with regular high-fiber diet. Discharge Attestations Time Spent in Discharge Care*: greater than 30 min Specific Discharge Activities: educating patient, discussing with pcp/other providers, discussing with pillowcase folder/social workers/dc planners, documenting/other paperwork and evaluating patient/reviewing data Status at Discharge: Cognitive status at discharge: cognitively intact , Behavioral status at discharge: cooperative , Functional status at discharge: other assisted ambulation , Overall status at discharge: patient is progressing back to baseline Quality Metrics Clinical Quality Measures [ No reported AMI, CVA or VTE this stay] Coding Level of Care Code Acute Chg FW DC note Diagnoses Partial small bowel obstruction K56.600
--- NOTE | 2022-05-31 15:20 | PC.NURSE ---
PICC line removed. occlusive/ transparent dressing applied. catheter/tip intact upon removal. Tolerated well.
[2022-05-31 16:28] VITALS: BP 118/80; PULSE 95; RESP 18; TEMP 36.3; O2SAT 97
== END 2022-05-31 16:29 | disposition skilled nursing facility (03) | DRG 673 ==
LOC: ER 18:57 → MEDSURG 21:52 → ICU 05-24 14:09 → MEDSURG 05-26 16:00
PROVIDERS: Family Medicine; Internal Medicine; Student in an Organized Health Care Education/Training Program; Surgery; Admitting Provider Internal Medicine; Emergency Provider Emergency Medicine; Visit Provider Student in an Organized Health Care Education/Training Program
PROC: 0DN84ZZ Release Small Intestine, Percutaneous Endoscopic Approach (ICD-10-PCS; CPT 49320; principal; 2022-05-25 18:25)
PROC: 0DN84ZZ Release Small Intestine, Percutaneous Endoscopic Approach (ICD-10-PCS; 2022-05-25 18:25)
DX: N39.0 Urinary tract infection, site not specified (principal); L89.613 Pressure ulcer of right heel, stage 3; K56.51 Intestinal adhesions [bands], with partial obstruction; G82.20 Paraplegia, unspecified; L03.115 Cellulitis of right lower limb; E87.0 Hyperosmolality and hypernatremia; N13.2 Hydronephrosis with renal and ureteral calculous obstruction; G35 Multiple sclerosis; F32.A Depression, unspecified; F41.9 Anxiety disorder, unspecified; K21.9 Gastro-esophageal reflux disease without esophagitis; I10 Essential (primary) hypertension; Z87.442 Personal history of urinary calculi; Z87.440 Personal history of urinary (tract) infections; Z93.6 Other artificial openings of urinary tract status; Z74.01 Bed confinement status; Z79.51 Long term (current) use of inhaled steroids; G25.2 Other specified forms of tremor; K59.00 Constipation, unspecified; B96.89 Other specified bacterial agents as the cause of diseases classified elsewhere; L89.152 Pressure ulcer of sacral region, stage 2; G40.409 Other generalized epilepsy and epileptic syndromes, not intractable, without status epilepticus; E87.6 Hypokalemia; K43.5 Parastomal hernia without obstruction or gangrene; N31.9 Neuromuscular dysfunction of bladder, unspecified
CPT/HCPCS: 36415; 36416; 36569; 36592; 50684; 71045; 74018; 74022; 74170; 74176; 74250; 74425; 77002; 80048; 80053; 80202; 81001; 82550; 82962; 83605; 83690; 83735; 84145; 84443; 85007; 85025; 87040; 87070; 87075; 87077; 87086; 87186; 87205; 87426; 87493; 87641; 87804; 93005; 93970; 96365; 96372; 96375; 99285; A4570; J0692; J0696; J1100; J1644; J1650; J2185; J2270; J2370; J2405; J2543; J2704; J2765; J3010; J3370; J3480; J3490; J7030; J7050; J7070; Q9958; Q9963; Q9967

== ENCOUNTER 2022-06-03 14:20 | Emergency (ER) | payer MEDICAID, SELFPAY ==
[2022-06-03] VITALS (8 sets, daily range): BP systolic 123–169; BP diastolic 78–100; PULSE 76–91; RESP 16; TEMP 36.3; O2SAT 96–100; BMI 28.1
--- NOTE | 2022-06-03 14:29 | XR_ITS ---
WS: [id number] Exam: XR chest 1V portable [id number] Date/Time of Exam: 06/03/2022 2:31 PM Reason For Exam: dyspnea/cough Comparison 05/26/2022. The lungs are clear and fully expanded. Normal cardiomediastinal silhouette and regional bony structu res. Previously noted right PICC line and NG tube have been removed. XR/XR chest 1V portable [id number] IMPRESSION: 1. Normal chest.
--- NOTE | 2022-06-03 14:29 | ECG_ITS ---
[facility] Test Date: 2022-06-03 Pat Name: Teresa Moraes Department: Room: Gender: Female Brief Writer: : 1970 Requested By: Kodi Blair Order Number: [id number] Ishan MD: Evy Hammond M.D. Measurements Intervals [place] Rate: 81 P: 45 SD: 173 QRS: -12 QRSD: 102 T: 39 QT: 375 QTc: 435 Interpretive Statements SINUS RHYTHM INCOMPLETE RIGHT BUNDLE BRANCH BLOCK [90+ ms QRS DURATION, TERMINAL R IN V1/V2, 40+ ms S IN I/aVL/V4/V5/V6] Compared to ECG 05/13/2022 00:19:28 Incomplete right bundle-branch block now present Sinus tachycardia no longer present T-wave abnormality no longer present Electronically Signed On 06-03-2022 15:58:17 CHIEF RADIATION THERAPIST by Evy Hammond M.D. [id number]
--- NOTE | 2022-06-03 14:38 | W.ED.NAVMDI ---
Documented by User: Kodi Stevenson DO 06/04/22 06:14 HPI - Nausea/Vomiting/Diarrhea General: Chief complaint: Nausea/Vomiting/Diarrhea Stated complaint: N/V, NO BOWEL SOUNDS Time Seen by Provider: 06/03/22 14:29 Source: patient Mode of arrival: ambulatory History of Present Illness: 2-year-old female who presents emergency room complaining of abdominal pain. [facility] They reported she had absent bowel sounds however they are easily auscultated well on arrival here. She had several episodes of vomiting per report at the [facility] no hematochezia melena hematemesis or coffee-ground emesis. She was hospitalized here recently on May 12 and ultimately discharged on May 31 during that hospitalization she underwent exploratory laparoscopic abdominal surgery for lysis of adhesions. She also has a diverting urostomy. MD elicited complaint: nausea and vomiting Pertinent past history: abdominal surgery Onset (ago): day(s) (1) Description of vomiting: watery Associated nausea: Yes Associated abdominal pain: Yes Location of pain: Diffuse Quality: cramping Exacerbating factors: eating Relieving factors: none Associated symtoms: Reports bloating, anorexia, malaise, nausea and weakness; Denies anxiety, change in vision, chest pain, cough, diaphoresis, decreased urine output, dizziness, epistaxis, fatigue, fecal incontinence, fevers/chills, headache(s), myalgias, numbness, palpitations, rash, short of breath, syncope, tenesmus or tinnitus Review of Systems Const: Reports: malaise; Denies: fever(s), chills, fatigue or diaphoresis Eyes: Denies: change in vision ENMT: Denies: tinnitus or epistaxis Card: Denies: chest pain, palpitations or syncope Resp: Denies: dyspnea, productive cough or non-productive cough GI: Reports: abdominal pain, nausea, vomiting, bloating and GI cramping; Denies: fecal incontinence : Denies: flank pain Skin/Breast: Denies: rash or pruritus Neuro: Denies: headache(s) or dizziness Psych: Denies: anxiety PFSH ED PFSH: Medical History Anemia Anxiety Cerebellar tremor Depression Depression, endogenous Gallstone pancreatitis GERD (gastroesophageal reflux disease) Hypertension Multiple sclerosis Onychodystrophy Plantar callus Seizure Staghorn renal calculus Struvite kidney stones Surgical History H/O cervical biopsy H/O: hysterectomy History of biopsy of bladder History of urostomy S/P ERCP Status post laparoscopic cholecystectomy (07/16/21) Family History Family/Other Cancer Hyperlipidemia Hypertension Denies family history of Diabetes CAD (coronary artery disease) Clotting disorder Dementia Psychiatric illness Chronic kidney disease (CKD) Suicide Anesthesia complication Bleeding disorder Family history of premature coronary artery disease Lung disease Stroke Social History Smoking and tobacco status: never smoked Alcohol intake: never Marital status: Current occupational status: retired and disabled History of recent travel: No Physical Exam Const: GENERAL APPEARANCE: cooperative and comfortable ORIENTATION/CONSCIOUSNESS: Yes awake, Yes oriented to person, Yes oriented to place and Yes oriented to time HENMT: COMMON NORMALS: normocephalic, atraumatic and hearing grossly normal bilaterally HEAD & SCALP: normocephalic and atraumatic Resp: COMMON NORMALS: normal respiratory effort, No retractions, No use of accessory muscles and clear to auscultation bilaterally AUSCULTATION: clear to auscultation bilaterally Cardio: COMMON NORMALS: regular rate, regular rhythm and No murmurs present (Cardio) RATE: regular rate RHYTHM: regular rhythm GI: COMMON NORMALS: Soft to palpation and No hepatosplenomegaly present AUSCULTATION: Yes normoactive bowel sounds PALPATION: Yes Soft to palpation, No Tenderness to palpation present (GI), No Guarding due to palpation present (GI) and Yes No hepatosplenomegaly present Extremity: COMMON NORMALS: normal to inspection, capillary refill normal, no clubbing, cyanosis or edema, no calf tenderness and no pedal edema Neuro: SENSORIUM/ORIENTATION: Yes oriented to person, Yes oriented to place and Yes oriented to time Skin: COMMON NORMALS: no rashes or lesions noted GENERAL SKIN EXAM: no rashes or lesions noted Course Vital Signs: Vital signs: Vital Signs Temperature 97.9 F 06/04/22 05:00 Pulse Rate 92 06/04/22 05:00 Respiratory Rate 16 06/04/22 05:00 Blood Pressure 141/75 06/04/22 05:00 Pulse Oximetry 97 06/04/22 05:00 Oxygen Delivery Me thod 06/04/22 05:00 MDM - Nausea/Vomiting/Diarrhea Medical Decision Making CT shows area of concern for an internal hernia looks like it may be intermittently blocking. 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 Discussed with Dr. Presley given the patient's overall complications effectively recently had performed surgery at our facility he recommends transfer to tertiary care because of the complicating factor of the urostomy. Care signed out to Dr. Marie at change of shift. See final notes for diagnosis and disposition. Patient presents here with abdominal pain and vomiting CT does show air in the right lower quadrant with possible small bowel obstruction with adhesions or internal hernia she also has emphysematous pyelonephritis I did speak to surgeon here who believes patient needs higher level of care I did try to transfer to [facility] who recommended a tertiary center was able to get [facility] and spoke to surgeon there and will transfer there. Medical Records I reviewed the patient's medical records. Lab Data I reviewed the patient's lab results. 06/03/22 15:00 06/03/22 15:00 Radiology Impressions Chest X-Ray 06/03/22 14:29 IMPRESSION: 1. Normal chest. Abdomen/Pelvis CT 06/03/22 15:03 IMPRESSION: 1. Several areas of small bowel transition RIGHT lower quadrant suspicious for adhesions or internal hernia with tethering. Mild fluid distention of the associated small bowel loops with a few air-fluid levels although improved from previous. Swirling of vessels in the RIGHT lower quadrant. No free air. 2. RIGHT pelvocaliectasis progressed compared to previous with air in the RIGHT collecting system may be related to the ureteral diversion but new from May 17, 2022. No perinephric abscess. Recommend correlation for infection/UTI to exclude emphysematous pyelitis/pyelonephritis. No significant ureteral obstruction. 3. Prior postoperative changes cystectomy with bilateral ureteral diversion and RIGHT lower quadrant ileal loop with ileostomy. Previously described peristomal hernia has been repaired 4. Persistent rectal impaction with distention measuring up to 9 cm. 5. Small esophageal hiatal hernia. 6. No other significant changes compared to previous. Notified Kodi Stevenson DO at 06/03/2022 4:29 PM. Laboratory Results WBC 9.3 10^3/uL (4.0-10.0) 06/03/22 15:00 RBC 4.14 10^6/uL (4.1-5.3) 06/03/22 15:00 Hgb 12.6 g/dL (11.5-15.3) 06/03/22 15:00 Hct 40.6 % (37.0-47.0) 06/03/22 15:00 MCV 98.1 fl (81-99) 06/03/22 15:00 MCH 30.4 pg (28.0-34.0) 06/03/22 15:00 MCHC 31.0 g/dL (30.0-36.0) 06/03/22 15:00 RDW 13.9 % (12.1-15.1) 06/03/22 15:00 Plt Count 344 10^3/cmm (130-400) 06/03/22 15:00 MPV 10.7 fL (7.4-10.4) H 06/03/22 15:00 Neut % (Auto) 50.6 % 06/03/22 15:00 Lymph % (Auto) 30.2 % 06/03/22 15:00 [place] % (Auto) 15.1 % 06/03/22 15:00 Eos % (Auto) 2.8 % 06/03/22 15:00 Baso % (Auto) 0.5 % 06/03/22 15:00 Neut # (Auto) 4.71 10^3/uL (1.8-7.7) 06/03/22 15:00 Lymph # (Auto) 2.8 10^3/uL (0.8-4.8) 06/03/22 15:00 [place] # (Auto) 1.4 10^3/uL (0.2-0.9) H 06/03/22 15:00 Eos # (Auto) 0.3 10^3/uL (0.0-0.8) 06/03/22 15:00 Baso # (Auto) 0.1 10^3/uL (0.0-0.1) 06/03/22 15:00 Nucleated RBC % (auto) 0 % 06/03/22 15:00 Nucleated RBCs # 0.0 /100WBC 06/03/22 15:00 Sodium 137 mmol/L (136-145) 06/03/22 15:00 Potassium 4.7 mmol/L (3.5-5.1) 06/03/22 15:00 Chloride 105 mmol/L (98-107) 06/03/22 15:00 Carbon Dioxide 21 mmol/L (22-29) L 06/03/22 15:00 Anion Gap 15.7 (5-19) 06/03/22 15:00 BUN 7 mg/dL (6-20) 06/03/22 15:00 Creatinine 0.3 mg/dL (0.5-0.9) L 06/03/22 15:00 GFR Calculation 233.6 mL/min (90-130) H 06/03/22 15:00 Glucose 97 mg/dL (65-115) 06/03/22 15:00 Calculated Osmolality 282 mOsm/kg (285-295) L 06/03/22 15:00 Lactic Acid 1.3 mmol/L (0.5-2.2) 06/03/22 15:00 Calcium 8.8 mg/dL (8.5-10.5) 06/03/22 15:00 Total Bilirubin 0.2 mg/dL (0.15-1.2) 06/03/22 15:00 AST 18 U/L (0-32) 06/03/22 15:00 ALT 21 U/L (0-33) 06/03/22 15:00 Alkaline Phosphatase 135 U/L (35-105) H 06/03/22 15:00 Total Protein 7.7 g/dL (6.6-8.7) 06/03/22 15:00 Albumin 3.7 g/dL (3.5-5.2) 06/03/22 15:00 Globulin 4.0 g/dL (1.3-4.6) 06/03/22 15:00 Lipase 24 U/L (13-60) 06/03/22 15:00 Urine Color Yellow (Yellow) 06/03/22 16:48 Urine Appearance Cloudy (CLEAR) A 06/03/22 16:48 Urine pH 7 (5-7) 06/03/22 16:48 Ur Specific [place] 1.005 (1.005-1.030) 06/03/22 16:48 Urine Protein Trace (Negative) 06/03/22 16:48 Urine Glucose (UA) Norm (Normal) 06/03/22 16:48 Urine Ketones Negative (Negative) 06/03/22 16:48 Urine Blood 2+ (Negative) H 06/03/22 16:48 Urine Nitrate Positive (Negative) H 06/03/22 16:48 Urine Bilirubin Neg (Negative) 06/03/22 16:48 Urine Urobilinogen Norm mg/dL (Negative) 06/03/22 16:48 Ur Leukocyte Esterase 2+ (Negative) H 06/03/22 16:48 Urine RBC 0-4 /hpf (0-2) H 06/03/22 16:48 Urine WBC 25-40 /hpf (0-5) H 06/03/22 16:48 Ur Squamous Epith Cells 0-4 /hpf (0-5) H 06/03/22 16:48 Amorphous Sediment Not Reportable 06/03/22 16:48 Urine Bacteria Trace /hpf (NONE) 06/03/22 16:48 SARS-CoV-2 Ag (Rapid) negative (Negative) 06/04/22 01:25 Discharge Plan Discharge Patient Disposition: Xfer Short-Term Hosp Clinical Impression: History of urostomy, Partial obstruction of small intestine, Parastomal hernia, Emphysematous pyelonephritis, Intra-abdominal adhesions Condition: Stable Coding Level of Care Code ED Web Site Specialist for Chg Fwd Exam Detailed Documented by User: Bal Marie MD 06/04/22 04:25 HPI - Nausea/Vomiting/Diarrhea General: Chief complaint: Nausea/Vomiting/Diarrhea Stated complaint: N/V, NO BOWEL SOUNDS Time Seen by Provider: 06/03/22 14:29 History of Present Illness: 52-year-old female who presents emergency room complaining of abdominal pain. [facility] They reported she had absent bowel sounds however they are easily auscultated well on arrival here. She had several episodes of vomiting per report at the [facility] no hematochezia melena hematemesis or coffee-ground emesis. She was hospitalized here recently on May 12 and ultimately discharged on May 31 during that hospitalization she underwent exploratory laparoscopic abdominal surgery for lysis of adhesions. She also has a diverting urostomy. PFSH ED PFSH: Medical History Anemia Anxiety Cerebellar tremor Depression Depression, endogenous Gallstone pancreatitis GERD (gastroesophageal reflux disease) Hypertension Multiple sclerosis Onychodystrophy Plantar callus Seizure Staghorn renal calculus Struvite kidney stones Surgical History H/O cervical biopsy H/O: hysterectomy History of biopsy of bladder History of urostomy S/P ERCP Status post laparoscopic cholecystectomy (07/16/21) Family History Family/Other Cancer Hyperlipidemia Hypertension Denies family history of Diabetes CAD (coronary artery disease) Clotting disorder Dementia Psychiatric illness Chronic kidney disease (CKD) Suicide Anesthesia complication Bleeding disorder Family history of premature coronary artery disease Lung disease Stroke Social History Smoking and tobacco status: never smoked Alcohol intake: never Marital status: Current occupational status: retired and disabled History of recent travel: No Course Vital Signs: Vital signs: Vital Signs Temperature 97.9 F 06/04/22 05:00 Pulse Rate 92 06/04/22 05:00 Respiratory Rate 16 06/04/22 05:00 Blood Pressure 141/75 06/04/22 05:00 Pulse Oximetry 97 06/04/22 05:00 Oxygen Delivery Me thod 06/04/22 05:00 MDM - Nausea/Vomiting/Diarrhea Medical Decision Making Patient presents here with abdominal pain and vomiting CT does show air in the right lower quadrant with possible small bowel obstruction with adhesions or internal hernia she also has emphysematous pyelonephritis I did speak to surgeon here who believes patient needs higher level of care I did try to transfer to [facility] who recommended a tertiary center was able to get [facility] and spoke to surgeon there and will transfer there. Lab Data 06/03/22 15:00 06/03/22 15:00 Radiology Impressions Chest X-Ray 06/03/22 14:29 IMPRESSION: 1. Normal chest. Abdomen/Pelvis CT 06/03/22 15:03 IMPRESSION: 1. Several areas of small bowel transition RIGHT lower quadrant suspicious for adhesions or internal hernia with tethering. Mild fluid distention of the associated small bowel loops with a few air-fluid levels although improved from previous. Swirling of vessels in the RIGHT lower quadrant. No free air. 2. RIGHT pelvocaliectasis progressed compared to previous with air in the RIGHT collecting system may be related to the ureteral diversion but new from May 17, 2022. No perinephric abscess. Recommend correlation for infection/UTI to exclude emphysematous pyelitis/pyelonephritis. No significant ureteral obstruction. 3. Prior postoperative changes cystectomy with bilateral ureteral diversion and RIGHT lower quadrant ileal loop with ileostomy. Previously described peristomal hernia has been repaired 4. Persistent rectal impaction with distention measuring up to 9 cm. 5. Small esophageal hiatal hernia. 6. No other significant changes compared to previous. Notified Kodi Stevenson DO at 06/03/2022 4:29 PM. Laboratory Results WBC 9.3 10^3/uL (4.0-10.0) 06/03/22 15:00 RBC 4.14 10^6/uL (4.1-5.3) 06/03/22 15:00 Hgb 12.6 g/dL (11.5-15.3) 06/03/22 15:00 Hct 40.6 % (37.0-47.0) 06/03/22 15:00 MCV 98.1 fl (81-99) 06/03/22 15:00 MCH 30.4 pg (28.0-34.0) 06/03/22 15:00 MCHC 31.0 g/dL (30.0-36.0) 06/03/22 15:00 RDW 13.9 % (12.1-15.1) 06/03/22 15:00 Plt Count 344 10^3/cmm (130-400) 06/03/22 15:00 MPV 10.7 fL (7.4-10.4) H 06/03/22 15:00 Neut % (Auto) 50.6 % 06/03/22 15:00 Lymph % (Auto) 30.2 % 06/03/22 15:00 [place] % (Auto) 15.1 % 06/03/22 15:00 Eos % (Auto) 2.8 % 06/03/22 15:00 Baso % (Auto) 0.5 % 06/03/22 15:00 Neut # (Auto) 4.71 10^3/uL (1.8-7.7) 06/03/22 15:00 Lymph # (Auto) 2.8 10^3/uL (0.8-4.8) 06/03/22 15:00 [place] # (Auto) 1.4 10^3/uL (0.2-0.9) H 06/03/22 15:00 Eos # (Auto) 0.3 10^3/uL (0.0-0.8) 06/03/22 15:00 Baso # (Auto) 0.1 10^3/uL (0.0-0.1) 06/03/22 15:00 Nucleated RBC % (auto) 0 % 06/03/22 15:00 Nucleated RBCs # 0.0 /100WBC 06/03/22 15:00 Sodium 137 mmol/L (136-145) 06/03/22 15:00 Potassium 4.7 mmol/L (3.5-5.1) 06/03/22 15:00 Chloride 105 mmol/L (98-107) 06/03/22 15:00 Carbon Dioxide 21 mmol/L (22-29) L 06/03/22 15:00 Anion Gap 15.7 (5-19) 06/03/22 15:00 BUN 7 mg/dL (6-20) 06/03/22 15:00 Creatinine 0.3 mg/dL (0.5-0.9) L 06/03/22 15:00 GFR Calculation 233.6 mL/min (90-130) H 06/03/22 15:00 Glucose 97 mg/dL (65-115) 06/03/22 15:00 Calculated Osmolality 282 mOsm/kg (285-295) L 06/03/22 15:00 Lactic Acid 1.3 mmol/L (0.5-2.2) 06/03/22 15:00 Calcium 8.8 mg/dL (8.5-10.5) 06/03/22 15:00 Total Bilirubin 0.2 mg/dL (0.15-1.2) 06/03/22 15:00 AST 18 U/L (0-32) 06/03/22 15:00 ALT 21 U/L (0-33) 06/03/22 15:00 Alkaline Phosphatase 135 U/L (35-105) H 06/03/22 15:00 Total Protein 7.7 g/dL (6.6-8.7) 06/03/22 15:00 Albumin 3.7 g/dL (3.5-5.2) 06/03/22 15:00 Globulin 4.0 g/dL (1.3-4.6) 06/03/22 15:00 Lipase 24 U/L (13-60) 06/03/22 15:00 Urine Color Yellow (Yellow) 06/03/22 16:48 Urine Appearance Cloudy (CLEAR) A 06/03/22 16:48 Urine pH 7 (5-7) 06/03/22 16:48 Ur Specific [place] 1.005 (1.005-1.030) 06/03/22 16:48 Urine Protein Trace (Negative) 06/03/22 16:48 Urine Glucose (UA) Norm (Normal) 06/03/22 16:48 Urine Ketones Negative (Negative) 06/03/22 16:48 Urine Blood 2+ (Negative) H 06/03/22 16:48 Urine Nitrate Positive (Negative) H 06/03/22 16:48 Urine Bilirubin Neg (Negative) 06/03/22 16:48 Urine Urobilinogen Norm mg/dL (Negative) 06/03/22 16:48 Ur Leukocyte Esterase 2+ (Negative) H 06/03/22 16:48 Urine RBC 0-4 /hpf (0-2) H 06/03/22 16:48 Urine WBC 25-40 /hpf (0-5) H 06/03/22 16:48 Ur Squamous Epith Cells 0-4 /hpf (0-5) H 06/03/22 16:48 Amorphous Sediment Not Reportable 06/03/22 16:48 Urine Bacteria Trace /hpf (NONE) 06/03/22 16:48 SARS-CoV-2 Ag (Rapid) negative (Negative) 06/04/22 01:25 Critical Care Time Critical Care Time: Critical Care Time: Yes Total Critical Care Time: 45 Attestation: The high probability of a clinically significant, sudden or life threatening deterioration of the patient's gi system(s) required my full and direct attention, intervention and personal management. The critical care time is as shown. This time is in addition to time spent performing any reported procedures but includes the following: [x] Data and vital sign review and interpretation [x] Patient assessment, examination and intervention [x] Documentation [x] Medication orders and management Discharge Plan Discharge Patient Disposition: Xfer Short-Term Hosp Clinical Impression: History of urostomy, Partial obstruction of small intestine, Parastomal hernia, Emphysematous pyelonephritis, Intra-abdominal adhesions Condition: Stable Coding Level of Care Code ED Web Site Specialist for Louise Fwjacob Exam Detailed
--- NOTE | 2022-06-03 15:03 | CT_ITS ---
WS: [id number] CT ABDOMEN PELVIS TECHNIQUE: Noncontrast CT of the abdomen and pelvis with coronal and sagittal reformatted images. CLINICAL INFORMATION: Abdominal pain COMPARISON: CT May 17, 2022 DLP: 626.[address] scans at [facility] use at least one of these dose optimization techniques: automated e xposure control; mA and/or kV adjustment per patient size (includes targeted exams where dose is matc hed to clinical indication); or iterative reconstruction. FINDINGS: Several small bowel transition points in the RIGHT lower quadrant suspicious for adhesions or interna l hernia with tethering. Mild fluid distention of the associated small bowel loops with a few air-flu id levels although improved from previous. Swirling of mesenteric vessels in the RIGHT lower quadrant . Areas of small bowel transition/adhesions just distal to the prior anastomosis in the RIGHT lower cleve drant: Axial imaging Series 7 image 138. Series 7 image 145. Series 7 image 158. Series 7 image 123. Series 7 image 121 Air distended transverse colon.Scattered stool in the colon. Rectal distention and impaction unchanged in appearance. Rectum measures up to 9 cm in transverse dim ension. Prior small bowel anastomosis in the midabdomen as previously described. Prior postoperative changes cystectomy with bilateral ureteral diversion and RIGHT lower quadrant ile al loop with ileostomy. Parastomal hernia in the RIGHT lower quadrant has been repaired compared to p revious. Slight bibasilar atelectasis. Noncontrast liver is normal. Enlargement of the RIGHT hepatic lobe. Cely or cholecystectomy. Normal GE junction. Fatty atrophy of the pancreas. Adrenal glands are normal. A f ew prominent periaortic and retroperitoneal lymph nodes likely reactive. Adrenal glands are normal. LEFT ureter is decompressed. Bilateral calyceal tip calculi similar to previous. Mild to moderate RIGHT pelvocaliectasis progressed compared to previous with new patchy foci of air w ithin the RIGHT renal pelvis and calyces. Recommend correlation for UTI. RIGHT ureter with mild RIGHT ureterectasis unchanged from previous. No evidence of high-grade ureteral obstruction. CT/CT abdomen pelvis wo con [id number] IMPRESSION: 1. Several areas of small bowel transition RIGHT lower quadrant suspicious for adhesions or internal hernia with tethering. Mild fluid distention of the asso ciated small bowel loops with a few air-fluid levels although improved from pre vious. Swirling of vessels in the RIGHT lower quadrant. No free air. 2. RIGHT pelvocaliectasis progressed compared to previous with air in the [place] T collecting system may be related to the ureteral diversion but new from 2022. No perinephric abscess. Recommend correlation for infection/UTI to exclude emphysematous pyelitis/pyelonephritis. No significant ureteral obstruc tion. 3. Prior postoperative changes cystectomy with bilateral ureteral diversion an d RIGHT lower quadrant ileal loop with ileostomy. Previously described peristom al hernia has been repaired 4. Persistent rectal impaction with distention measuring up to 9 cm. 5. Small esophageal hiatal hernia. 6. No other significant changes compared to previous. Notified Kodi Stevenson DO at 06/03/2022 4:29 PM.
[2022-06-03 15:10] LABS: Basophils # 0.1 10^3/uL (0.0-0.1); Basophils % 0.5 %; Eosinophils # 0.3 10^3/uL (0.0-0.8); Eosinophils % 2.8 %; Hematocrit 40.6 % (37.0-47.0); Hemoglobin 12.6 g/dL (11.5-15.3); Lymphocytes # 2.8 10^3/uL (0.8-4.8); Lymphocytes % 30.2 %; Mean Corpuscular Hemoglobin 30.4 pg (28.0-34.0); Mean Corpuscular Volume 98.1 fl (81-99); Mean Platelet Volume 10.7 fL (7.4-10.4); Monocytes # 1.4 10^3/uL (0.2-0.9); Monocytes % 15.1 %; Neutrophils # 4.71 10^3/uL (1.8-7.7); Neutrophils % 50.6 %; Nucleated Red Blood Cells % 0 %; Platelet Count 344 10^3/cmm (130-400); Red Blood Count 4.14 10^6/uL (4.1-5.3); Red Cell Distribution Width 13.9 % (12.1-15.1); White Blood Count 9.3 10^3/uL (4.0-10.0)
[2022-06-03] MEDS: sodium chloride 0.9% 1,000 ML 999 ML IV (15:11)
[2022-06-03] MEDS: ondansetron 2 mg/ML SDV 2 mL 4 MG IVP (15:14)
[2022-06-03 15:26] LABS: Lactic Sepsis W/Reflex 1.3 mmol/L (0.5-2.2)
[2022-06-03 15:31] LABS: Slide Review Slide Review Perform
[2022-06-03 15:33] LABS: Alanine Aminotransferase 21 U/L (0-33); Albumin Level 3.7 g/dL (3.5-5.2); Alkaline Phosphatase 135 U/L (35-105); Anion Gap 15.7 (5-19); Aspartate Amino Transferase 18 U/L (0-32); Blood Urea Nitrogen 7 mg/dL (6-20); Calcium 8.8 mg/dL (8.5-10.5); Carbon Dioxide 21 mmol/L (22-29); Chloride 105 mmol/L (98-107); Glomerular Filtration Rate 233.6 mL/min (90-130); Glucose 97 mg/dL (65-115); Lipase 24 U/L (13-60); Osmolality Calculated 282 mOsm/kg (285-295); Potassium 4.7 mmol/L (3.5-5.1); Sodium 137 mmol/L (136-145); Total Bilirubin 0.2 mg/dL (0.15-1.2); Total Protein 7.7 g/dL (6.6-8.7)
[2022-06-03 18:04] LABS: Protein Urine Trace (Negative); Specific Gravity, Urine 1.005 (1.005-1.030); Urine Appearance Cloudy (CLEAR); Urine Color Yellow (Yellow); pH Urine 7 (5-7)
[2022-06-03 18:05] LABS: Add Urine Microscopic? YES; Bacteria Urine TRACE /hpf; Bilirubin Urine Neg (Negative); Blood Urine 2+ (Negative); Glucose Urine UA Norm (Normal); Ketones Urine Negative (Negative); Leukocyte Esterase Urine 2+ (Negative); Nitrate Urine Positive (Negative); RBC Urine 0-4 /hpf (0-2); Squamous Epithelial Cell Urine 0-4 /hpf (0-5); Urobilinogen Urine Norm (Negative); WBC Urine 25-40 /hpf (0-5)
[2022-06-03 18:06] LABS: Add Urine Culture? Yes
[2022-06-03] MEDS: cefTRIAXone 1,000 MG in sodium chloride 0.9% (plus) 50 ML 100 MG IV (19:06)
[2022-06-04] VITALS (7 sets, daily range): BP systolic 130–167; BP diastolic 75–101; PULSE 67–97; RESP 16–18; TEMP 36.6; O2SAT 97–99
--- NOTE | 2022-06-04 01:03 | PC.NURSE ---
NURSE ASSESSMENT OF PATIENT MADE. PATIENT BEDDING AND DEPENDS CHECKED FOR ANY SKIN IRRITATION OR BREAKDOWN. PATIENT MADE COMFORTABLE IN BED. NO FURTHER NEEDS AT THIS TIME.
[2022-06-04 01:46] LABS: SARS Covid-2 Antigen negative (Negative)
--- NOTE | 2022-06-04 02:10 | PC.NURSE ---
REPORT GIVEN TO HARINI TELLEZ.
--- NOTE | 2022-06-04 02:11 | PC.NURSE ---
Pt report from HARINI Gómez. Pt resting quietly. Vs taken and documented. No needs at this time.
--- NOTE | 2022-06-04 03:08 | PC.NURSE ---
Incontinent care provided. Small, soft but formed bm noted in brief. Specimen collected. Pt noted to have stage 1 skin breakdown to buttocks. Skin protection patch in place. New brief provided and pt repositioned to right side lying with pillows. Pt tolerated well.
--- NOTE | 2022-06-04 04:04 | PC.NURSE ---
Spoke with Alber. Pt has been accepted. Will call back with bed assignment. UC and MD notified.
--- NOTE | 2022-06-04 05:41 | PC.NURSE ---
Kendra from [facility] called back stating admitting surgeon wanted to evaluate pt in the ER prior to pt going to a room. Kendra stated there was no need to call another report to the ER. Same admitting surgeon. Incontinence care provided and pt repositioned on left side with pillows. Pt tolerated well. Urostomy bag drained and IV to RAC flushed with ease. No further needs at this time.
[2022-06-04] MEDS: piperacillin-tazobactam 3.375 GM in sodium chloride 0.9% (plus) 50 ML IV (06:17)
--- NOTE | 2022-06-04 06:55 | PC.NURSE ---
Report to HARINI Magaña. Pt belongings placed in belonging bag. Phone, circuit walker, dentures, pants placed in bag and placed onto bed. No needs at this time.
== END 2022-06-04 07:44 | disposition short-term general hospital (02) ==
PROVIDERS: Family Medicine; Emergency Provider Emergency Medicine
DX: N12 Tubulo-interstitial nephritis, not specified as acute or chronic (principal); K56.51 Intestinal adhesions [bands], with partial obstruction; K43.5 Parastomal hernia without obstruction or gangrene; Z96.0 Presence of urogenital implants; I10 Essential (primary) hypertension; G35 Multiple sclerosis
CPT/HCPCS: 36415; 71045; 74176; 80053; 81001; 83605; 83690; 85025; 87077; 87086; 87186; 87426; 87493; 93005; 96365; 96366; 96367; 96375; 99285; J0696; J2405; J2543; J7030

== ENCOUNTER → 2022-06-10 14:44 | Outpatient (BNVA) | payer MEDICAID, SELFPAY | PROVIDERS: Visit Provider Thoracic Surgery (Cardiothoracic Vascular Surgery) | DX: L89.899 Pressure ulcer of other site, unspecified stage (principal) ==

== ENCOUNTER 2022-07-27 09:05 | Outpatient (CLI) | payer MEDICAID, SELFPAY ==
--- NOTE | 2022-07-27 09:15 | XR_ITS ---
WS: [id number] KUB, AP view, 07/27/2022 Clinical Data: Staghorn Renal Calculus Comparison: Acute abdomen series, 05/25/2022 Findings: There are right renal calcifications unchanged. No abnormal intraabdominal masses are seen. There is a large amount of fecal material throughout the colon with a large fecal impaction. There is moderate small bowel air but no small bowel obstruction. There are surgical clips in the right upper quadrant from a cholecystectomy. XR/XR KUB [id number] Impression: 1. No change in right renal calcifications. 2. Large fecal impaction. 3. Moderate generalized ileus.
== END 2022-07-27 09:06 | disposition home or self-care (01) ==
LOC: RAD 09:08
PROVIDERS: PCP Internal Medicine; Visit Provider Urology
DX: N20.0 Calculus of kidney (principal); Z98.890 Other specified postprocedural states
CPT/HCPCS: 74018; 99213

== ENCOUNTER → 2022-11-19 14:04 | Outpatient (BNVA) | payer MEDICAID, SELFPAY | PROVIDERS: PCP Internal Medicine; Visit Provider Specialist | DX: G35 Multiple sclerosis (principal); G40.209 Localization-related (focal) (partial) symptomatic epilepsy and epileptic syndromes with complex partial seizures, not intractable, without status epilepticus; G40.409 Other generalized epilepsy and epileptic syndromes, not intractable, without status epilepticus | CPT/HCPCS: 99214 ==

== ENCOUNTER → 2023-05-25 13:50 | Outpatient (BNVA) | payer MEDICAID, SELFPAY | PROVIDERS: PCP Internal Medicine; Visit Provider Specialist | DX: G40.89 Other seizures (principal); G35 Multiple sclerosis | CPT/HCPCS: 99214 ==

== ENCOUNTER → 2024-01-10 13:18 | Outpatient (BNVA) | payer MEDICAID, SELFPAY | PROVIDERS: PCP Internal Medicine; Visit Provider Specialist | DX: G35 Multiple sclerosis (principal); R29.90 Unspecified symptoms and signs involving the nervous system; G82.20 Paraplegia, unspecified | CPT/HCPCS: 99213 ==

== ENCOUNTER 2024-03-07 18:50 | Emergency (ER) | payer MEDICAID, SELFPAY ==
[2024-03-07 18:51] VITALS: BP 141/102; PULSE 113; RESP 16; TEMP 36.6; O2SAT 95
--- NOTE | 2024-03-07 19:04 | CTR_ITS ---
PROCEDURE INFORMATION: Exam: CT Abdomen And Pelvis With Contrast Exam date and time: 03/07/2024 8:25 PM Age: 53 years old Clinical indication: Abdominal pain; Additional info: N/v, possible small bowel obs on xray TECHNIQUE: Imaging protocol: Computed tomography of the abdomen and pelvis with contrast. Radiation optimization: All CT scans at this facility use at least one of these dose optimization techniques: automated exposure control; mA and/or kV adjustment per patient size (includes targeted exams where dose is matched to clinical indication); or iterative reconstruction. Contrast material: OMNI 350; Contrast volume: 100 ml; Contrast route: INTRAVENOUS (IV); COMPARISON: CT abdomen pelvis wo con [id number] 06/03/2022 3:44 PM RADIATION DOSE METRICS: Total DLP (mGy-cm): 479.89 FINDINGS: Liver: Normal. No mass. Gallbladder and biliary ducts: Normal. No calcified stones. No ductal dilation. Pancreas: Normal. No ductal dilation. Spleen: Normal. No splenomegaly. Adrenal glands: Normal. No mass. Kidneys and ureters: Bilateral nonobstructive intrarenal calyceal stones. There is slight fullness of the right renal pelvis with urothelial thickening and enhancement. A bilateral ureteral ileostomy stoma is seen in the right anterior abdomen. Stomach and bowel: There is marked fluid distension of small bowel with air-fluid levels. There is a swirling herniated appearance of loops and vessels into a right lower quadrant area concerning for an internal hernia through an internal defect. There is continued stool impaction of the rectum. Appendix: No evidence of appendicitis. Intraperitoneal space: See Stomach and bowel finding. Vasculature: Unremarkable. No abdominal aortic aneurysm. Lymph nodes: Unremarkable. No enlarged lymph nodes. Urinary bladder: Unremarkable as visualized. Reproductive: Unremarkable as visualized. Bones/joints: Unremarkable. No acute fracture. Soft tissues: Unremarkable. CT/CT abdomen pelvis w con* [id number] IMPRESSION: Findings concerning for small bowel obstruction secondary to internal hernia in the right lower quadrant. Urothelial thickening of the right collecting system raising concern for ureteral pyelitis. Nonobstructive stones are seen in both kidneys. Large stool impaction of the rectum.
--- NOTE | 2024-03-07 19:10 | ED_ITS ---
Documented by User: Jorge Enamorado DO 03/07/24 19:55 HPI - Abdominal Pain 2 General: Chief Complaint: Abdominal Pain Stated Complaint: abdomen pain Time Seen by Provider: 03/07/24 18:54 History of Present Illness: Patient presents by EMS from [facility] with small bowel obstruction. Also having nausea vomiting. Patient has a Hernandez in place and colostomy bag on right side of abdomen, patient is wheelchair-bound but denies pain at this time. Patient is actively having nausea and vomiting. Related Data Home Medications Medication Instructions Recorded Confirmed albuterol sulfate 90 mcg/actuation 2 puff inhalation QID 03/02/21 02/27/24 aerosol inhaler (ProAir HFA) loratadine 10 mg tablet 10 mg PO DAILY@08 03/02/21 02/27/24 sodium phosphates 19 gram-7 118 ml VA DAILY PRN Constipation 03/02/21 02/27/24 gram/118 mL enema (Fleet Enema) potassium chloride 20 mEq 20 meq PO BID@08,17 04/20/21 02/27/24 tablet,extended release guaifenesin 200 mg/5 mL oral liquid 150 mg PO Q4H PRN Cough 09/16/21 02/27/24 Lactobacillus acidophilus 1 1,000 mmu cells PO BID 01/19/22 02/27/24 billion cell capsule acetaminophen 650 mg 650 mg PO Q6H PRN pain 01/19/22 02/27/24 tablet,extended release fluticasone 500 mcg-salmeterol 50 1 inh inhalation BID 01/19/22 02/27/24 mcg/dose blistr powdr for inhalation (Advair Diskus) gabapentin 300 mg capsule 300 mg PO TID 01/19/22 02/27/24 magnesium hydroxide 400 mg/5 mL 30 ml PO BID PRN Unknown 01/19/22 02/27/24 oral suspension polyethylene glycol 3350 17 4 g PO DAILY 01/19/22 02/27/24 gram/dose oral powder (Miralax) interferon beta-1b 0.3 mg 0.25 mg SUBCUT Q48H 05/12/22 02/27/24 subcutaneous kit (Betaseron) omeprazole 20 mg capsule,delayed 20 mg PO DAILY 05/12/22 02/27/24 release ketoconazole 2 % shampoo 1 applic topical Q14D 05/13/22 02/27/24 ketoconazole 2 % topical cream 1 applic topical DAILY 05/13/22 02/27/24 lacosamide 200 mg tablet (Vimpat) 200 mg PO BID 05/13/22 02/27/24 melatonin 5 mg tablet 5 mg PO BEDTIME 05/13/22 02/27/24 methenamine hippurate 1 gram 1 g PO QID 05/13/22 02/27/24 tablet (Hiprex) simethicone 80 mg chewable tablet 80 mg PO QID PRN Gastrointestinal 05/13/22 02/27/24 Spasms Or Cramping venlafaxine 150 mg 150 mg PO DAILY 05/13/22 02/27/24 capsule,extended release 24 hr (Effexor XR) baclofen 20 mg tablet 20 mg PO BID 11/08/23 02/27/24 baclofen 20 mg tablet 40 mg PO .hs 11/08/23 02/27/24 levetiracetam 1,000 mg tablet 1,500 mg PO BID 11/08/23 02/27/24 (Keppra) nystatin 100,000 unit/gram topical topical 12/19/23 02/27/24 cream Allergies Allergy/AdvReac Type Severity Reaction Status Date / Time No Known Allergies Allergy Verified 03/07/24 19:00 Review of Systems 2 General: Reports: 10 or more systems reviewed and unremarkable except in HPI and below PFSH ED 2 PFSH: Medical History Generalized epilepsy Gallstone pancreatitis Struvite kidney stones Onychodystrophy Depression, endogenous Staghorn renal calculus Multiple sclerosis Seizure Anxiety Depression Hypertension Cerebellar tremor Anemia GERD (gastroesophageal reflux disease) Plantar callus Surgical History Status post laparoscopic cholecystectomy (07/16/21) S/P ERCP H/O cervical biopsy History of biopsy of bladder H/O: hysterectomy History of urostomy Family History Family/Other Cancer Hyperlipidemia Hypertension Denies family history of Diabetes CAD (coronary artery disease) Clotting disorder Dementia Psychiatric illness Chronic kidney disease (CKD) Suicide Anesthesia complication Bleeding disorder Family history of premature coronary artery disease Lung disease Stroke Social History Smoking and tobacco/nicotine status: unknown if used tobacco/nicotine Alcohol intake: never Substance/Drug Use: never Marital status: Current occupational status: retired and disabled Physical Exam 2 Const: COMMON NORMALS: no acute distress, average body habitus, patient oriented x3, no limitations, healthy appearing, alert and well nourished HENMT: COMMON NORMALS: normocephalic, hearing grossly normal bilaterally, external ears normal, Normal external nose present and moist oral mucous membranes HEAD & SCALP: normocephalic NOSE: Normal external nose present EXTERNAL EAR: Yes external ears normal Neck/C-Spine: COMMON NORMALS: no JVD Chest: COMMONS NORMALS: normal inspection of the chest and normal palpation of entire chest wall Resp: COMMON NORMALS: normal respiratory effort, No retractions, No use of accessory muscles and clear to auscultation bilaterally AUSCULTATION: clear to auscultation bilaterally Cardio: COMMON NORMALS: no JVD, regular rhythm, S1 normal heart sound present, S2 normal heart sound present, No gallops present (Cardio), No clicks present (Cardio), No murmurs present (Cardio) and No rub (Cardio); negative for regular rate (Mildly tachycardic) RATE: abnormal rate (Mildly tachycardic) RHYTHM: regular rhythm HEART SOUNDS: S1 normal heart sound present and S2 normal heart sound present GI: COMMON NORMALS: Normal to inspection, nondistended, normoactive bowel sounds present, Soft to palpation, No hepatosplenomegaly present and no masses; negative for non-tender (Diffusely tender) PALPATION: Yes Soft to palpation and Yes No hepatosplenomegaly present Neuro: COMMON NORMALS: patient oriented x3 SENSORIUM/ORIENTATION: Yes alert Course 2 Vital Signs: Vital signs: Vital Signs Temperature 97.8 F 03/07/24 18:51 Pulse Rate 117 H 03/07/24 19:29 Respiratory Rate 18 03/07/24 19:29 Blood Pressure 130/100 03/07/24 19:29 Pulse Oximetry 97 03/07/24 19:29 Oxygen Delivery Me thod Room Air 03/07/24 19:29 MDM - Abdominal Pain Medical Records I reviewed the patient's medical records. Lab Data I reviewed the patient's lab results. 03/07/24 19:10 03/07/24 19:10 Labs/Radiology: Radiology Impressions Abdomen/Pelvis CT 03/07/24 19:04 IMPRESSION: Findings concerning for small bowel obstruction secondary to internal hernia in the right lower quadrant. Urothelial thickening of the right collecting system raising concern for ureteral pyelitis. Nonobstructive stones are seen in both kidneys. Large stool impaction of the rectum. ADDENDUM: 03/07/24 [id number] THIS REPORT CONTAINS FINDINGS THAT MAY BE CRITICAL TO PATIENT CARE. The findings were verbally communicated via telephone conference with Dr. Mancilla at 9:26 PM CDT on 03/07/2024. The findings were acknowledged and understood. Laboratory Results WBC 16.43 10^3/uL (3.29-11.43) H 03/07/24 19:10 RBC 4.60 10^6/uL (3.85-5.65) 03/07/24 19:10 Hgb 12.50 g/dL (11.27-16.99) 03/07/24 19:10 Hct 39.6 % (36-47) 03/07/24 19:10 MCV 86.1 fl (85-98) 03/07/24 19:10 MCH 27.2 pg (27-33) 03/07/24 19:10 MCHC 31.6 g/dL (30-55) 03/07/24 19:10 RDW 15.8 % (12.1-15.1) H 03/07/24 19:10 Plt Count 804 10^3/cmm (157-399) H 03/07/24 19:10 MPV 9.0 fL (7.4-10.4) 03/07/24 19:10 Neut % (Auto) 78.9 % 03/07/24 19:10 Lymph % (Auto) 13.2 % 03/07/24 19:10 Allen % (Auto) 7.2 % 03/07/24 19:10 Eos % (Auto) 0.0 % 03/07/24 19:10 Baso % (Auto) 0.2 % 03/07/24 19:10 Neut # (Auto) 12.95 10^3/uL (1.8-7.7) H 03/07/24 19:10 Lymph # (Auto) 2.2 10^3/uL (0.8-4.8) 03/07/24 19:10 Allen # (Auto) 1.2 10^3/uL (0.2-0.9) H 03/07/24 19:10 Eos # (Auto) 0.0 10^3/uL (0.0-0.8) 03/07/24 19:10 Baso # (Auto) 0.0 10^3/uL (0.0-0.1) 03/07/24 19:10 Nucleated RBC % (auto) 0 % 03/07/24 19:10 Nucleated RBCs # 0.0 /100WBC 03/07/24 19:10 Sodium 131 mmol/L (136-145) L 03/07/24 19:10 Potassium 3.4 mmol/L (3.5-5.1) L 03/07/24 19:10 Chloride 98 mmol/L (98-107) 03/07/24 19:10 Carbon Dioxide 16 mmol/L (22-29) L 03/07/24 19:10 Anion Gap 20.4 (5-19) H 03/07/24 19:10 BUN 34 mg/dL (6-20) H 03/07/24 19:10 Creatinine 0.6 mg/dL (0.5-0.9) 03/07/24 19:10 GFR Calculation 104.6 mL/min (90-130) 03/07/24 19:10 Glucose 123 mg/dL (65-115) H 03/07/24 19:10 Calculated Osmolality 281 mOsm/kg (285-295) L 03/07/24 19:10 Lactic Acid 1.2 mmol/L (0.5-2.2) 03/07/24 19:10 Calcium 9.6 mg/dL (8.5-10.5) 03/07/24 19:10 Total Bilirubin 0.2 mg/dL (0.15-1.2) 03/07/24 19:10 AST 11 U/L (0-32) 03/07/24 19:10 ALT 8 U/L (0-33) 03/07/24 19:10 Alkaline Phosphatase 131 U/L (35-105) H 03/07/24 19:10 Total Protein 9.8 g/dL (6.6-8.7) H 03/07/24 19:10 Albumin 4.0 g/dL (3.5-5.2) 03/07/24 19:10 Globulin 5.8 g/dL (1.3-4.6) H 03/07/24 19:10 All radiology interpretation(s) finalized by discharge Discharge Plan Discharge Patient Disposition: Xfer Short-Term Hosp Clinical Impression: Small bowel obstruction, Internal hernia, Fecal impaction, Paraplegia, Multiple sclerosis, Neurogenic bladder Condition: Stable Referrals: Tony Keys MD [Primary Care Provider] - Coding Level of Care Code ED Fibre Cement Moulder for Chg Fwd Documented by User: Janneth Mancilla MD 03/07/24 22:29 HPI - Abdominal Pain 2 General: Chief Complaint: Abdominal Pain Stated Complaint: abdomen pain Time Seen by Provider: 03/07/24 18:54 Related Data Home Medications Medication Instructions Recorded Confirmed albuterol sulfate 90 mcg/actuation 2 puff inhalation QID 03/02/21 02/27/24 aerosol inhaler (ProAir HFA) loratadine 10 mg tablet 10 mg PO DAILY@08 03/02/21 02/27/24 sodium phosphates 19 gram-7 118 ml VA DAILY PRN Constipation 03/02/21 02/27/24 gram/118 mL enema (Fleet Enema) potassium chloride 20 mEq 20 meq PO BID@08,17 04/20/21 02/27/24 tablet,extended release guaifenesin 200 mg/5 mL oral liquid 150 mg PO Q4H PRN Cough 09/16/21 02/27/24 Lactobacillus acidophilus 1 1,000 mmu cells PO BID 01/19/22 02/27/24 billion cell capsule acetaminophen 650 mg 650 mg PO Q6H PRN pain 01/19/22 02/27/24 tablet,extended release fluticasone 500 mcg-salmeterol 50 1 inh inhalation BID 01/19/22 02/27/24 mcg/dose blistr powdr for inhalation (Advair Diskus) gabapentin 300 mg capsule 300 mg PO TID 01/19/22 02/27/24 magnesium hydroxide 400 mg/5 mL 30 ml PO BID PRN Unknown 01/19/22 02/27/24 oral suspension polyethylene glycol 3350 17 4 g PO DAILY 01/19/22 02/27/24 gram/dose oral powder (Miralax) interferon beta-1b 0.3 mg 0.25 mg SUBCUT Q48H 05/12/22 02/27/24 subcutaneous kit (Betaseron) omeprazole 20 mg capsule,delayed 20 mg PO DAILY 05/12/22 02/27/24 release ketoconazole 2 % shampoo 1 applic topical Q14D 05/13/22 02/27/24 ketoconazole 2 % topical cream 1 applic topical DAILY 05/13/22 02/27/24 lacosamide 200 mg tablet (Vimpat) 200 mg PO BID 05/13/22 02/27/24 melatonin 5 mg tablet 5 mg PO BEDTIME 05/13/22 02/27/24 methenamine hippurate 1 gram 1 g PO QID 05/13/22 02/27/24 tablet (Hiprex) simethicone 80 mg chewable tablet 80 mg PO QID PRN Gastrointestinal 05/13/22 02/27/24 Spasms Or Cramping venlafaxine 150 mg 150 mg PO DAILY 05/13/22 02/27/24 capsule,extended release 24 hr (Effexor XR) baclofen 20 mg tablet 20 mg PO BID 11/08/23 02/27/24 baclofen 20 mg tablet 40 mg PO .hs 11/08/23 02/27/24 levetiracetam 1,000 mg tablet 1,500 mg PO BID 11/08/23 02/27/24 (Keppra) nystatin 100,000 unit/gram topical topical 12/19/23 02/27/24 cream Allergies Allergy/AdvReac Type Severity Reaction Status Date / Time No Known Allergies Allergy Verified 03/07/24 19:00 PFSH ED 2 PFSH: Medical History Generalized epilepsy Gallstone pancreatitis Struvite kidney stones Onychodystrophy Depression, endogenous Staghorn renal calculus Multiple sclerosis Seizure Anxiety Depression Hypertension Cerebellar tremor Anemia GERD (gastroesophageal reflux disease) Plantar callus Surgical History Status post laparoscopic cholecystectomy (07/16/21) S/P ERCP H/O cervical biopsy History of biopsy of bladder H/O: hysterectomy History of urostomy Family History Family/Other Cancer Hyperlipidemia Hypertension Denies family history of Diabetes CAD (coronary artery disease) Clotting disorder Dementia Psychiatric illness Chronic kidney disease (CKD) Suicide Anesthesia complication Bleeding disorder Family history of premature coronary artery disease Lung disease Stroke Social History Smoking and tobacco/nicotine status: unknown if used tobacco/nicotine Alcohol intake: never Substance/Drug Use: never Marital status: Current occupational status: retired and disabled Course 2 Vital Signs: Vital signs: Vital Signs Temperature 97.8 F 03/07/24 18:51 Pulse Rate 117 H 03/07/24 19:29 Respiratory Rate 18 03/07/24 19:29 Blood Pressure 130/100 03/07/24 19:29 Pulse Oximetry 97 03/07/24 19:29 Oxygen Delivery Me thod Room Air 03/07/24 19:29 MDM - Abdominal Pain Medical Decision Making Patient care was transitioned to [place] at shift change awaiting CT results. Consultation: Dr. Loving was consulted and has seen the patient in the emergency room. He is disimpacting the patient. She has a very severe rectal stool impaction. He is recommending transfer because she has an urostomy Review of [facility] paperwork. Patient has multiple sclerosis, paraplegia, COPD, depression hypertension and she had an ileal conduit secondary to neuro genic bladder. Spoke with [facility]. Patient is being transferred to the emergency room. I talked with [facility] initially but they do not have beds until tomorrow and felt that she needed to be evaluated by a surgeon for possible surgery sooner than that. Assessment and plan: Small bowel obstruction Fecal impaction Neurogenic bladder with an ileal conduit Multiple sclerosis Patient has been tachycardic think she may be a bit dehydrated so fluids are being given Dr. Guallpa excepting to [facility]. - Discussed findings and plan with patient. Answered any questions. - All laboratory values were reviewed and interpreted personally by myself, the ER physician - All imaging was reviewed and interpreted personally by myself, the ER physician. - Evaluation and treatment of this problem were appropriate in the emergency setting Lab Data 03/07/24 19:10 03/07/24 19:10 Labs/Radiology: Radiology Impressions Abdomen/Pelvis CT 03/07/24 19:04 IMPRESSION: Findings concerning for small bowel obstruction secondary to internal hernia in the right lower quadrant. Urothelial thickening of the right collecting system raising concern for ureteral pyelitis. Nonobstructive stones are seen in both kidneys. Large stool impaction of the rectum. ADDENDUM: 03/07/242127 THIS REPORT CONTAINS FINDINGS THAT MAY BE CRITICAL TO PATIENT CARE. The findings were verbally communicated via telephone conference with Dr. Mancilla at 9:26 PM CDT on 03/07/2024. The findings were acknowledged and understood. Laboratory Results WBC 16.43 10^3/uL (3.29-11.43) H 03/07/24 19:10 RBC 4.60 10^6/uL (3.85-5.65) 03/07/24 19:10 Hgb 12.50 g/dL (11.27-16.99) 03/07/24 19:10 Hct 39.6 % (36-47) 03/07/24 19:10 MCV 86.1 fl (85-98) 03/07/24 19:10 MCH 27.2 pg (27-33) 03/07/24 19:10 MCHC 31.6 g/dL (30-55) 03/07/24 19:10 RDW 15.8 % (12.1-15.1) H 03/07/24 19:10 Plt Count 804 10^3/cmm (157-399) H 03/07/24 19:10 MPV 9.0 fL (7.4-10.4) 03/07/24 19:10 Neut % (Auto) 78.9 % 03/07/24 19:10 Lymph % (Auto) 13.2 % 03/07/24 19:10 Allen % (Auto) 7.2 % 03/07/24 19:10 Eos % (Auto) 0.0 % 03/07/24 19:10 Baso % (Auto) 0.2 % 03/07/24 19:10 Neut # (Auto) 12.95 10^3/uL (1.8-7.7) H 03/07/24 19:10 Lymph # (Auto) 2.2 10^3/uL (0.8-4.8) 03/07/24 19:10 Allen # (Auto) 1.2 10^3/uL (0.2-0.9) H 03/07/24 19:10 Eos # (Auto) 0.0 10^3/uL (0.0-0.8) 03/07/24 19:10 Baso # (Auto) 0.0 10^3/uL (0.0-0.1) 03/07/24 19:10 Nucleated RBC % (auto) 0 % 03/07/24 19:10 Nucleated RBCs # 0.0 /100WBC 03/07/24 19:10 Sodium 131 mmol/L (136-145) L 03/07/24 19:10 Potassium 3.4 mmol/L (3.5-5.1) L 03/07/24 19:10 Chloride 98 mmol/L (98-107) 03/07/24 19:10 Carbon Dioxide 16 mmol/L (22-29) L 03/07/24 19:10 Anion Gap 20.4 (5-19) H 03/07/24 19:10 BUN 34 mg/dL (6-20) H 03/07/24 19:10 Creatinine 0.6 mg/dL (0.5-0.9) 03/07/24 19:10 GFR Calculation 104.6 mL/min (90-130) 03/07/24 19:10 Glucose 123 mg/dL (65-115) H 03/07/24 19:10 Calculated Osmolality 281 mOsm/kg (285-295) L 03/07/24 19:10 Lactic Acid 1.2 mmol/L (0.5-2.2) 03/07/24 19:10 Calcium 9.6 mg/dL (8.5-10.5) 03/07/24 19:10 Total Bilirubin 0.2 mg/dL (0.15-1.2) 03/07/24 19:10 AST 11 U/L (0-32) 03/07/24 19:10 ALT 8 U/L (0-33) 03/07/24 19:10 Alkaline Phosphatase 131 U/L (35-105) H 03/07/24 19:10 Total Protein 9.8 g/dL (6.6-8.7) H 03/07/24 19:10 Albumin 4.0 g/dL (3.5-5.2) 03/07/24 19:10 Globulin 5.8 g/dL (1.3-4.6) H 03/07/24 19:10 Discharge Plan Discharge Patient Disposition: Xfer Short-Term Hosp Clinical Impression: Small bowel obstruction, Internal hernia, Fecal impaction, Paraplegia, Multiple sclerosis, Neurogenic bladder Condition: Stable Referrals: Tony Keys MD [Primary Care Provider] - Coding Level of Care Code ED Fibre Cement [place] for Louise Roac
[2024-03-07] MEDS: ondansetron 2 mg/ML SDV 2 mL 8 MG IVP (19:12)
[2024-03-07 19:15] LABS: Basophils % 0.2 %; Hematocrit 39.6 % (36-47); Lymphocytes # 2.2 10^3/uL (0.8-4.8); Lymphocytes % 13.2 %; Mean Corpuscular HGB Conc 31.6 g/dL (30-55); Mean Corpuscular Hemoglobin 27.2 pg (27-33); Mean Corpuscular Volume 86.1 fl (85-98); Monocytes # 1.2 10^3/uL (0.2-0.9); Monocytes % 7.2 %; Neutrophils # 12.95 10^3/uL (1.8-7.7); Neutrophils % 78.9 %; Nucleated Red Blood Cells % 0 %; Platelet Count 804 10^3/cmm (157-399); Red Cell Distribution Width 15.8 % (12.1-15.1); White Blood Count 16.43 10^3/uL (3.29-11.43)
[2024-03-07 19:29] VITALS: BP 130/100; PULSE 117; RESP 18; O2SAT 97
[2024-03-07 19:33] LABS: Alanine Aminotransferase 8 U/L (0-33); Alkaline Phosphatase 131 U/L (35-105); Anion Gap 20.4 (5-19); Aspartate Amino Transferase 11 U/L (0-32); Blood Urea Nitrogen 34 mg/dL (6-20); Calcium 9.6 mg/dL (8.5-10.5); Carbon Dioxide 16 mmol/L (22-29); Chloride 98 mmol/L (98-107); Creatinine Clr Calc Pharmacy 115.4469; Globulin 5.8 g/dL (1.3-4.6); Glomerular Filtration Rate 104.6 mL/min (90-130); Glucose 123 mg/dL (65-115); Lactic Sepsis W/Reflex 1.2 mmol/L (0.5-2.2); Osmolality Calculated 281 mOsm/kg (285-295); Potassium 3.4 mmol/L (3.5-5.1); Sodium 131 mmol/L (136-145); Total Bilirubin 0.2 mg/dL (0.15-1.2); Total Protein 9.8 g/dL (6.6-8.7)
[2024-03-07] MEDS: iohexol 350 mg/mL 500 mL Btl (per mL) IV (20:31)
--- NOTE | 2024-03-07 21:55 | P.CONIM_ITS ---
Providers/Reason For Consult 2 Consulting Physician/Specialty*: General Surgery Reason for Consult*: Small bowel obstruction Primary Care Provider: Tony Keys MD History of Present Illness History of Present Illness Teresa Moraes is a 53 year old female who presents to the emergency department complaining of nausea and vomit for almost 1 week, she is chronically constipated, bedbound and has history of multiple inked abdominal surgeries including cystectomy and diverting urostomy with ileal conduit. Per patient report she has been throwing up for almost a week does not have significant abdominal pain according to the patient she has been told that she has been passing stool and she has felt some gas bath imaging done in the [facility] show evidence of a small bowel obstruction therefore she was transferred to our hospital. Review of Systems 2 General: Reports: 10 or more systems reviewed and unremarkable except in HPI and below Medications/Allergies Home Medications Medication Instructions Recorded Confirmed Last Taken Type albuterol sulfate 90 mcg/actuation 2 puff inhalation QID 03/02/21 02/27/24 07/16/21 08:00 History aerosol inhaler (ProAir HFA) loratadine 10 mg tablet 10 mg PO DAILY@08 03/02/21 02/27/24 07/16/21 08:00 History sodium phosphates 19 gram-7 118 ml HI DAILY PRN Constipation 03/02/21 02/27/24 Unknown History gram/118 mL enema (Fleet Enema) potassium chloride 20 mEq 20 meq PO BID@08,17 04/20/21 02/27/24 07/16/21 08:00 History tablet,extended release guaifenesin 200 mg/5 mL oral liquid 150 mg PO Q4H PRN Cough 09/16/21 02/27/24 Unknown History Lactobacillus acidophilus 1 1,000 mmu cells PO BID 01/19/22 02/27/24 Unknown History billion cell capsule acetaminophen 650 mg 650 mg PO Q6H PRN pain 01/19/22 02/27/24 Unknown History tablet,extended release fluticasone 500 mcg-salmeterol 50 1 inh inhalation BID 01/19/22 02/27/24 Unknown History mcg/dose blistr powdr for inhalation (Advair Diskus) gabapentin 300 mg capsule 300 mg PO TID 01/19/22 02/27/24 Unknown History magnesium hydroxide 400 mg/5 mL 30 ml PO BID PRN Unknown 01/19/22 02/27/24 Unknown History oral suspension polyethylene glycol 3350 17 4 g PO DAILY 01/19/22 02/27/24 Unknown History gram/dose oral powder (Miralax) interferon beta-1b 0.3 mg 0.25 mg SUBCUT Q48H 05/12/22 02/27/24 Unknown History subcutaneous kit (Betaseron) omeprazole 20 mg capsule,delayed 20 mg PO DAILY 05/12/22 02/27/24 Unknown History release ketoconazole 2 % shampoo 1 applic topical Q14D 05/13/22 02/27/24 Unknown History ketoconazole 2 % topical cream 1 applic topical DAILY 05/13/22 02/27/24 Unknown History lacosamide 200 mg tablet (Vimpat) 200 mg PO BID 05/13/22 02/27/24 Unknown History melatonin 5 mg tablet 5 mg PO BEDTIME 05/13/22 02/27/24 Unknown History methenamine hippurate 1 gram 1 g PO QID 05/13/22 02/27/24 Unknown History tablet (Hiprex) simethicone 80 mg chewable tablet 80 mg PO QID PRN Gastrointestinal 05/13/22 02/27/24 Unknown History Spasms Or Cramping venlafaxine 150 mg 150 mg PO DAILY 05/13/22 02/27/24 Unknown History capsule,extended release 24 hr (Effexor XR) baclofen 20 mg tablet 20 mg PO BID 11/08/23 02/27/24 Unknown History baclofen 20 mg tablet 40 mg PO .hs 11/08/23 02/27/24 Unknown History levetiracetam 1,000 mg tablet 1,500 mg PO BID 11/08/23 02/27/24 Unknown History (Keppra) nystatin 100,000 unit/gram topical topical 12/19/23 02/27/24 Unknown History cream Allergies Allergy/AdvReac Type Severity Reaction Status Date / Time No Known Allergies Allergy Verified 03/07/24 19:00 PFSH Acute 2 PFSH: Medical History Generalized epilepsy Gallstone pancreatitis Struvite kidney stones Onychodystrophy Depression, endogenous Staghorn renal calculus Multiple sclerosis Seizure Anxiety Depression Hypertension Cerebellar tremor Anemia GERD (gastroesophageal reflux disease) Plantar callus Surgical History Status post laparoscopic cholecystectomy (07/16/21) S/P ERCP H/O cervical biopsy History of biopsy of bladder H/O: hysterectomy History of urostomy Family History Family/Other Cancer Hyperlipidemia Hypertension Denies family history of Diabetes CAD (coronary artery disease) Clotting disorder Dementia Psychiatric illness Chronic kidney disease (CKD) Suicide Anesthesia complication Bleeding disorder Family history of premature coronary artery disease Lung disease Stroke Social History Smoking and tobacco/nicotine status: unknown if used tobacco/nicotine Alcohol intake: never Substance/Drug Use: never Marital status: Current occupational status: retired and disabled Vitals/I&O/Wt Last Vital Signs Temp 97.8 F 03/07/24 18:51 Pulse 117 H 03/07/24 19:29 Resp 18 03/07/24 19:29 BP 130/100 03/07/24 19:29 Pulse Ox 97 03/07/24 19:29 O2 Del Method Room Air 03/07/24 19:29 Weight last 48 hrs Weight 168 lb Physical Exam 2 GI: OTHER: Abdomen soft, abdomen is distended, there is multiple old surgical incisions, there is a urostomy in the right upper quadrant. Data 03/07/24 19:10 03/07/24 19:10 A&P Assessment and plan (1) Small bowel obstruction: (2) Constipation: (3) History of urostomy: (4) Multiple sclerosis: Plan 53-year-old female who presents to the hospital with clinical picture concerning for small bowel obstruction in the setting of multiple previous intra-abdominal surgeries, severe fecal impaction and presence of ileal conduit. White count is elevated to 16, vital signs are stable, but she is tachycardic. CT scan of the abdomen and pelvis done in our institution show evidence of a small bowel obstruction with a possible transition point at the level of the right lower quadrant where there is swirling of the mesentery concerning for the possibility of internal hernia. There was also fecal impaction. I have personally reviewed the imaging, previous CAT scan of the abdomen done about a year ago when the patient presented with similar symptoms already had findings in the right lower quadrant of swirling of the mesentery, I think at this point the possibility of internal hernia is lower in the differential, this anatomic changes at the level of the right lower quadrant might be due to the rearrangement of the mesentery of the small bowel during the creation of the ileal conduit, patient does have a small bowel obstruction, she has a extremely important fecal impaction with is a very distended rectum. Is my clinical opinion that this fecal impaction is likely contributing to her small bowel obstruction. I have also reviewed the anatomy of the kidneys, there is significant alteration of the usual anatomy with creation of an ileal conduit, the left ureter appears to go behind the colon in the lower abdomen, right ureter appears to be dilated and tickened. I proceeded with a bedside disimpaction, large amount of stool was able to be evacuated from the rectum, stool was solid to semisolid in nature, a total volume of about 700 cc of stool was able to be evacuated. Patient was able to pass gas during fecal disimpaction. I think the likelihood of her clinical picture resolving with medical management is low, patient most likely will require exploration with possible lysis of adhesion and even additional diversion, due to significant altered intra-abdominal anatomy there is high chance that revision of ileal conduit may be necessary during her operation. In addition position of the left ureter in relation with the colon puts it at high risk for injury in the case of deciding to proceed with a colostomy and diversion. Unfortunately we do not have a urology specialist in our institution that can provide his expertise if intraoperative management of the ileal conduit, in the setting my recommendation is for transfer to higher level of care for evaluation of recurrent SBO in the setting of multiple abdominal surgeries and creation of a ileal conduit, patient will require higher level of care due to high complexity of the case requiring additional expertise and need for urology specialists if the decision to proceed with surgery is made. At the moment of my evaluation patient is stable for transfer from the surgical standpoint, there is no peritonitis no evidence of free air on the CT scan and no evidence of bowel compromise on imaging. I would recommend that the patient started on IV fluids, antibiotics and an NG tube be placed for management and decompression of gastric contents. -Recommend transfer to high-level care -NG tube to low intermittent suction -Pain control -IV fluids -IV antibiotics due to suspected bacterial translocation. Coding Level of Care Code 24232 Diagnoses Small bowel obstruction K56.609 Constipation K59.00 History of urostomy Z98.890 Multiple sclerosis G35
[2024-03-07 22:00] VITALS: BP 171/111; PULSE 135; RESP 16; O2SAT 96
[2024-03-07 22:30] VITALS: BP 166/113; PULSE 100; RESP 18; O2SAT 98
--- NOTE | 2024-03-07 22:35 | XRR_ITS ---
PROCEDURE INFORMATION: Exam: XR Chest Exam date and time: 03/07/2024 10:44 PM Age: 53 years old Clinical indication: Device placement; Ng tube; Additional info: Ng placement TECHNIQUE: Imaging protocol: Radiologic exam of the chest. Views: 1 view. COMPARISON: CR XR chest 1V portable [id number] 06/03/2022 2:38 PM FINDINGS: Tubes, catheters and devices: NG tube has been placed in the tip is in the body of the stomach near the greater curvature. Lungs: Unremarkable. No consolidation. Pleural spaces: Unremarkable. No pleural effusion. No pneumothorax. Heart/Mediastinum: Unremarkable. No cardiomegaly. Bones/joints: Unremarkable. XR/XR chest 1V portable [id number] IMPRESSION: No acute pleural-parenchymal findings. Satisfactory position of NG tube.
[2024-03-07] MEDS: sodium chloride 0.9% 1,000 ML 999 ML IV (22:36)
[2024-03-07 22:46] LABS: Bilirubin Urine Negative (Negative); Blood Urine 3+ (Negative); Glucose Urine UA Negative (Normal); Ketones Urine Trace (Negative); Leukocyte Esterase Urine 2+ (Negative); Nitrate Urine Negative (Negative); Protein Urine 2+ (Negative); Urine Appearance Turbid (CLEAR); Urine Color Yellow (Yellow); pH Urine 7.5 (5-7)
[2024-03-07 22:58] LABS: RBC Urine 21-50 /hpf (0-2); Specific Gravity, Urine 1.065 (1.005-1.030); WBC Urine 15-25 /hpf (0-5)
[2024-03-07 22:59] LABS: Add Urine Culture? Yes; Amorphous Sediment Urine 2+ /hpf; Bacteria Urine 2+ /hpf; Mucus Urine 2+ /hpf; Squamous Epithelial Cell Urine 0-4 /hpf (0-5)
--- NOTE | 2024-03-07 23:13 | DCPLANNER ---
Called [facility]- Declined due to weather-
[2024-03-07 23:59] VITALS: BP 155/108; PULSE 101; RESP 18; O2SAT 97
== END 2024-03-08 00:03 | disposition short-term general hospital (02) ==
PROVIDERS: Emergency Medicine; Emergency Provider Emergency Medicine; PCP Internal Medicine
DX: K56.699 Other intestinal obstruction unspecified as to partial versus complete obstruction (principal); K46.0 Unspecified abdominal hernia with obstruction, without gangrene; G82.20 Paraplegia, unspecified; G35 Multiple sclerosis; N31.9 Neuromuscular dysfunction of bladder, unspecified; I10 Essential (primary) hypertension
CPT/HCPCS: 71045; 74177; 80053; 81001; 83605; 85025; 87077; 87086; 87186; 96361; 96374; 99285; J2405; J7030

== ENCOUNTER 2024-04-04 13:06 | Emergency (ER) | payer MEDICAID, SELFPAY ==
[2024-04-04 13:10] VITALS: BP 150/92; PULSE 86; RESP 18; TEMP 36.3; O2SAT 97; BMI 28.1
[2024-04-04 13:50] VITALS: BP 150/92; PULSE 88; RESP 20; O2SAT 99
[2024-04-04 13:56] LABS: Basophils % 0.3 %; Eosinophils # 0.1 10^3/uL (0.0-0.8); Eosinophils % 1.3 %; Lymphocytes # 1.6 10^3/uL (0.8-4.8); Mean Corpuscular HGB Conc 29.7 g/dL (30-55); Mean Corpuscular Hemoglobin 27.4 pg (27-33); Mean Corpuscular Volume 92.1 fl (85-98); Mean Platelet Volume 8.5 fL (7.4-10.4); Monocytes # 0.6 10^3/uL (0.2-0.9); Neutrophils # 8.01 10^3/uL (1.8-7.7); Neutrophils % 76.9 %; Nucleated Red Blood Cells % 0 %; Platelet Count 680 10^3/cmm (157-399); Red Cell Distribution Width 16.8 % (12.1-15.1); White Blood Count 10.42 10^3/uL (3.29-11.43)
--- NOTE | 2024-04-04 13:56 | CTR_ITS ---
PROCEDURE INFORMATION: Exam: CT Head Without Contrast Exam date and time: 04/04/2024 2:38 PM Age: 53 years old Clinical indication: Altered mental status/memory loss; Additional info: AMS TECHNIQUE: Imaging protocol: Computed tomography of the head without contrast. Radiation optimization: All CT scans at this facility use at least one of these dose optimization techniques: automated exposure control; mA and/or kV adjustment per patient size (includes targeted exams where dose is matched to clinical indication); or iterative reconstruction. COMPARISON: CT head wo con* [id number] 03/02/2021 6:21 AM RADIATION DOSE METRICS: Total DLP (mGy-cm): 1190.88 FINDINGS: Brain: No intracranial hemorrhage. There is global parenchymal volume loss. Periventricular white matter hypoattenuation is nonspecific but most likely due to small vessel disease. No evidence of acute territorial infarct or cerebral edema. No mass effect or midline shift. Cerebral ventricles: Prominent ventricles likely secondary to volume loss. Paranasal sinuses: Mucosal thickening in the sphenoid sinus. Mastoid air cells: Visualized mastoid air cells are well aerated. Bones: Unremarkable. No acute fracture. Soft tissues: Unremarkable. CT/CT head wo con* [id number] IMPRESSION: No acute intracranial findings.
--- NOTE | 2024-04-04 13:56 | W.ED.AMS ---
HPI - Altered Mental Status General: Chief Complaint: Altered Mental Status Stated Complaint: ams Time Seen by Provider: 04/04/24 13:13 Source: patient and EMS Mode of arrival: EMS Limitations: no limitations History of Present Illness: 53-year-old female who is here from [facility] per EMS did state that she was altered there but she has been completely normal with EMS patient here is answering my questions appropriately she knows her full surgical history knows the year and knows her name knows where she is from she has no complaints here at this time whatsoever she did have recent abdominal surgery and has a urostomy Related Data Home Medications Medication Instructions Recorded Confirmed loratadine 10 mg tablet 10 mg PO DAILY@08 03/02/21 04/04/24 sodium phosphates 19 gram-7 118 ml MS DAILY PRN Constipation 03/02/21 04/04/24 gram/118 mL enema (Fleet Enema) potassium chloride 20 mEq 20 meq PO BID@08,17 04/20/21 04/04/24 tablet,extended release guaifenesin 200 mg/5 mL oral liquid 150 mg PO Q4H PRN Cough 09/16/21 04/04/24 Lactobacillus acidophilus 1 1,000 mmu cells PO BID 01/19/22 04/04/24 billion cell capsule acetaminophen 650 mg 650 mg PO Q6H PRN pain 01/19/22 04/04/24 tablet,extended release fluticasone 500 mcg-salmeterol 50 1 inh inhalation BID 01/19/22 04/04/24 mcg/dose blistr powdr for inhalation (Advair Diskus) gabapentin 300 mg capsule 300 mg PO TID 01/19/22 04/04/24 magnesium hydroxide 400 mg/5 mL 30 ml PO BID PRN Unknown 01/19/22 04/04/24 oral suspension polyethylene glycol 3350 17 4 g PO DAILY 01/19/22 04/04/24 gram/dose oral powder (Miralax) omeprazole 20 mg capsule,delayed 20 mg PO DAILY 05/12/22 04/04/24 release lacosamide 200 mg tablet (Vimpat) 200 mg PO BID 05/13/22 04/04/24 melatonin 5 mg tablet 5 mg PO BEDTIME 05/13/22 04/04/24 methenamine hippurate 1 gram 1 g PO QID 05/13/22 04/04/24 tablet (Hiprex) simethicone 80 mg chewable tablet 80 mg PO QID PRN Gastrointestinal 05/13/22 04/04/24 Spasms Or Cramping venlafaxine 150 mg 150 mg PO DAILY 05/13/22 04/04/24 capsule,extended release 24 hr (Effexor XR) baclofen 20 mg tablet 20 mg PO BID 11/08/23 04/04/24 baclofen 20 mg tablet 40 mg PO .hs 11/08/23 04/04/24 levetiracetam 1,000 mg tablet 1,500 mg PO BID 11/08/23 04/04/24 (Keppra) nystatin 100,000 unit/gram topical 1 applic topical QAM PRN SCALY AREA 12/19/23 04/04/24 cream albuterol sulfate 90 mcg/actuation 1 inh inhalation Q8H PRN CHRONIC 04/04/24 04/04/24 aerosol inhaler (Ventolin HFA) OBSTRUCTIVE PULM ondansetron HCl 4 mg tablet 4 mg PO Q4H PRN Nausea And Vomiting 04/04/24 04/04/24 tramadol 50 mg tablet 50 mg PO Q4H PRN Pain 04/04/24 04/04/24 Allergies Allergy/AdvReac Type Severity Reaction Status Date / Time No Known Allergies Allergy Verified 03/07/24 19:00 Review of Systems Const: Denies: fever(s), chills, body aches or change in appetite ENMT: Denies: throat pain or dental pain Card: Denies: chest pain Resp: Denies: dyspnea GI: Denies: abdominal pain, nausea, vomiting or diarrhea Musc: Denies: neck pain or back pain Skin/Breast: Denies: rash Neuro: Denies: headache(s) PFSH ED PFSH: Medical History Generalized epilepsy Gallstone pancreatitis Struvite kidney stones Onychodystrophy Depression, endogenous Staghorn renal calculus Multiple sclerosis Seizure Anxiety Depression Hypertension Cerebellar tremor Anemia GERD (gastroesophageal reflux disease) Plantar callus Surgical History Status post laparoscopic cholecystectomy (07/16/21) S/P ERCP H/O cervical biopsy History of biopsy of bladder H/O: hysterectomy History of urostomy Family History Family/Other Cancer Hyperlipidemia Hypertension Denies family history of Diabetes CAD (coronary artery disease) Clotting disorder Dementia Psychiatric illness Chronic kidney disease (CKD) Suicide Anesthesia complication Bleeding disorder Family history of premature coronary artery disease Lung disease Stroke Social History Smoking and tobacco/nicotine status: unknown if used tobacco/nicotine Alcohol intake: never Substance/Drug Use: never Marital status: Current occupational status: retired and disabled Physical Exam Const: COMMON NORMALS: no acute distress, patient oriented x3 and healthy appearing HENMT: COMMON NORMALS: normocephalic and atraumatic HEAD & SCALP: normocephalic and atraumatic Neck/C-Spine: COMMON NORMALS: full ROM and supple Chest: COMMONS NORMALS: normal inspection of the chest Resp: COMMON NORMALS: normal respiratory effort, No retractions, No use of accessory muscles and clear to auscultation bilaterally AUSCULTATION: clear to auscultation bilaterally Cardio: COMMON NORMALS: regular rate, regular rhythm and No murmurs present (Cardio) RATE: regular rate RHYTHM: regular rhythm GI: COMMON NORMALS: Normal to inspection, nondistended, normoactive bowel sounds present, Soft to palpation, non-tender and no masses PALPATION: Yes Soft to palpation Extremity: COMMON NORMALS: normal to inspection and full ROM Neuro: COMMON NORMALS: patient oriented x3, moves all extremities and no focal motor deficits Psych: COMMON NORMALS: mental status grossly normal, Normal thought process present and cooperative THOUGHT PROCESS: Normal thought process present Skin: COMMON NORMALS: no rashes or lesions noted and no wounds GENERAL SKIN EXAM: no rashes or lesions noted Course Vital Signs: Vital signs: Vital Signs Temperature 97.3 F L 04/04/24 13:10 Pulse Rate 88 04/04/24 13:50 Respiratory Rate 20 H 04/04/24 13:50 Blood Pressure 150/92 04/04/24 13:50 Pulse Oximetry 99 04/04/24 13:50 Oxygen Delivery Me thod Room Air 04/04/24 13:50 MDM - Altered Mental Status Medical Decision Making Patient presents here concerns for some fusion correction here she has been awake alert she answers all my questions appropriately imaging blood work here is normal she stable for discharge back to correction. Medical Records I reviewed the patient's medical records. Lab Data I reviewed the patient's lab results. 04/04/24 13:47 04/04/24 13:[address] 04/04/24 13:56 IMPRESSION: No acute intracranial findings. Laboratory Results WBC 10.42 10^3/uL (3.29-11.43) 04/04/24 13:47 RBC 3.80 10^6/uL (3.85-5.65) L 04/04/24 13:47 Hgb 10.40 g/dL (11.27-16.99) L 04/04/24 13:47 Hct 35.0 % (36-47) L 04/04/24 13:47 MCV 92.1 fl (85-98) 04/04/24 13:47 MCH 27.4 pg (27-33) 04/04/24 13:47 MCHC 29.7 g/dL (30-55) L 04/04/24 13:47 RDW 16.8 % (12.1-15.1) H 04/04/24 13:47 Plt Count 680 10^3/cmm (157-399) H 04/04/24 13:47 MPV 8.5 fL (7.4-10.4) 04/04/24 13:47 Neut % (Auto) 76.9 % 04/04/24 13:47 Lymph % (Auto) 15.0 % 04/04/24 13:47 Greer % (Auto) 6.0 % 04/04/24 13:47 Eos % (Auto) 1.3 % 04/04/24 13:47 Baso % (Auto) 0.3 % 04/04/24 13:47 Neut # (Auto) 8.01 10^3/uL (1.8-7.7) H 04/04/24 13:47 Lymph # (Auto) 1.6 10^3/uL (0.8-4.8) 04/04/24 13:47 Greer # (Auto) 0.6 10^3/uL (0.2-0.9) 04/04/24 13:47 Eos # (Auto) 0.1 10^3/uL (0.0-0.8) 04/04/24 13:47 Baso # (Auto) 0.0 10^3/uL (0.0-0.1) 04/04/24 13:47 Nucleated RBC % (auto) 0 % 04/04/24 13:47 Nucleated RBCs # 0.0 /100WBC 04/04/24 13:47 Sodium 137 mmol/L (136-145) 04/04/24 13:47 Potassium 3.9 mmol/L (3.5-5.1) 04/04/24 13:47 Chloride 112 mmol/L (98-107) H 04/04/24 13:47 Carbon Dioxide 12 mmol/L (22-29) L 04/04/24 13:47 Anion Gap 16.9 (5-19) 04/04/24 13:47 BUN 16 mg/dL (6-20) 04/04/24 13:47 Creatinine 0.3 mg/dL (0.5-0.9) L 04/04/24 13:47 GFR Calculation 232.7 mL/min (90-130) H 04/04/24 13:47 Glucose 94 mg/dL (65-115) 04/04/24 13:47 Calculated Osmolality 285 mOsm/kg (285-295) 04/04/24 13:47 Calcium 9.2 mg/dL (8.5-10.5) 04/04/24 13:47 Total Bilirubin 0.2 mg/dL (0.15-1.2) 04/04/24 13:47 AST 17 U/L (0-32) 04/04/24 13:47 ALT 22 U/L (0-33) 04/04/24 13:47 Alkaline Phosphatase 113 U/L (35-105) H 04/04/24 13:47 Total Protein 8.8 g/dL (6.6-8.7) H 04/04/24 13:47 Albumin 3.2 g/dL (3.5-5.2) L 04/04/24 13:47 Globulin 5.6 g/dL (1.3-4.6) H 04/04/24 13:47 All radiology interpretation(s) finalized by discharge Discharge Plan Discharge Patient Disposition: Home Clinical Impression: Confusion Condition: Stable Prescriptions: No Action potassium chloride 20 mEq tablet extended release 20 meq PO BID@08,17 polyethylene glycol 3350 [Miralax] 17 gram/dose powder 4 g PO DAILY fluticasone propion-salmeterol [Advair Diskus] 500-50 mcg/dose blister with device 1 inh inhalation BID Lactobacillus acidophilus 1 billion cell capsule 1,000 mmu cells PO BID gabapentin 300 mg capsule 300 mg PO TID magnesium hydroxide 400 mg/5 mL suspension 30 ml PO BID PRN (Reason: Unknown) acetaminophen 650 mg tablet extended release 650 mg PO Q6H PRN (Reason: pain) levetiracetam [Keppra] 1,000 mg tablet 1,500 mg PO BID guaifenesin 200 mg/5 mL liquid 150 mg PO Q4H PRN (Reason: Cough) baclofen 20 mg tablet 40 mg PO .hs nystatin 100,000 unit/gram cream 1 applic topical QAM PRN (Reason: SCALY AREA) loratadine 10 mg tablet 10 mg PO DAILY@08 Fleet Enema 19-7 gram/118 mL Enema 118 ml MS DAILY PRN (Reason: Constipation) albuterol sulfate [Ventolin HFA] 90 mcg/actuation HFA aerosol inhaler 1 inh INHALATION Q8H PRN (Reason: CHRONIC OBSTRUCTIVE PULM) ondansetron HCl 4 mg tablet 4 mg PO Q4H PRN (Reason: Nausea And Vomiting) tramadol 50 mg tablet 50 mg PO Q4H PRN (Reason: Pain) omeprazole 20 mg capsule,delayed release(DR/EC) 20 mg PO DAILY venlafaxine [Effexor XR] 150 mg Capsule,Extended Release 24hr 150 mg PO DAILY methenamine hippurate [Hiprex] 1 gram Tablet 1 g PO QID lacosamide [Vimpat] 200 mg Tablet 200 mg PO BID simethicone 80 mg Tablet,Chewable 80 mg PO QID PRN (Reason: Gastrointestinal Spasms Or Cramping) melatonin 5 mg Tablet 5 mg PO BEDTIME baclofen 20 mg tablet 20 mg PO BID Rx Instructions: AM and NOON Discharge Orders: Discharge ED (Routine); Ordered 04/04/24 Ordered By: Bal Marie Referrals: Tony Keys MD [Primary Care Provider] - Discharge Diet: Advance as tolerated Discharge Activity: Resume usual activity Patient Instructions: Altered Mental Status (ED) Coding Level of Care Code ED Band Instrument Maker for Louise Roca
[2024-04-04 14:43] LABS: Alanine Aminotransferase 22 U/L (0-33); Albumin Level 3.2 g/dL (3.5-5.2); Alkaline Phosphatase 113 U/L (35-105); Anion Gap 16.9 (5-19); Aspartate Amino Transferase 17 U/L (0-32); Blood Urea Nitrogen 16 mg/dL (6-20); Calcium 9.2 mg/dL (8.5-10.5); Carbon Dioxide 12 mmol/L (22-29); Chloride 112 mmol/L (98-107); Creatinine Clr Calc Pharmacy 238.3477; Globulin 5.6 g/dL (1.3-4.6); Glomerular Filtration Rate 232.7 mL/min (90-130); Glucose 94 mg/dL (65-115); Osmolality Calculated 285 mOsm/kg (285-295); Potassium 3.9 mmol/L (3.5-5.1); Sodium 137 mmol/L (136-145); Total Bilirubin 0.2 mg/dL (0.15-1.2); Total Protein 8.8 g/dL (6.6-8.7)
[2024-04-04 14:58] VITALS: BP 167/95; PULSE 88; RESP 16; O2SAT 100
[2024-04-04 16:05] VITALS: BP 170/96; PULSE 72; RESP 16; O2SAT 99
[2024-04-04 17:06] VITALS: BP 137/93; PULSE 89; RESP 20; O2SAT 98
== END 2024-04-04 17:00 | disposition home or self-care (01) ==
PROVIDERS: Emergency Provider Emergency Medicine; PCP Internal Medicine
DX: R41.0 Disorientation, unspecified (principal); I10 Essential (primary) hypertension
CPT/HCPCS: 70450; 80053; 85025; 99284

== ENCOUNTER 2024-04-09 06:52 | Inpatient (IN) | payer MEDICAID, SELFPAY ==
[2024-04-09] VITALS (171 sets, daily range): BP systolic 101–172; BP diastolic 61–120; PULSE 89–138; RESP 11–32; TEMP 36.2–37.1; O2SAT 93–100; BMI 20.3
--- NOTE | 2024-04-09 06:55 | CTR_ITS ---
PROCEDURE INFORMATION: Exam: CT Head Without Contrast Exam date and time: 04/09/2024 7:10 AM Age: 54 years old Clinical indication: Altered mental status/memory loss; Additional info: AMS TECHNIQUE: Imaging protocol: Computed tomography of the head without contrast. Radiation optimization: All CT scans at this facility use at least one of these dose optimization techniques: automated exposure control; mA and/or kV adjustment per patient size (includes targeted exams where dose is matched to clinical indication); or iterative reconstruction. COMPARISON: CT head wo con* [id number] 04/04/2024 2:38 PM RADIATION DOSE METRICS: Total DLP (mGy-cm): 867.06 FINDINGS: Brain: Mild to moderately scattered periventricular and subcortical white matter hypodensities are identified. There is no evidence of acute parenchymal hemorrhage, extra-axial collection, or acute infarction. There is no mass effect, midline shift, or downward herniation. Cerebral ventricles: No ventriculomegaly. Paranasal sinuses: There is an aerosolized left sphenoid sinus secretion. There is mild additional paranasal sinus mucosal thickening. Mastoid air cells: Visualized mastoid air cells are well aerated. Bones: Unremarkable. No acute fracture. Soft tissues: Unremarkable. CT/CT head wo con* [id number] IMPRESSION: 1. No evidence of acute intracranial process. 2. Mild to moderately scattered white matter hypodensities. Differential considerations include chronic microvascular ischemic change, demyelinating disease, or gliosis from infectious/inflammatory source.
--- NOTE | 2024-04-09 06:55 | XRR_ITS ---
PROCEDURE INFORMATION: Exam: XR Chest Exam date and time: 04/09/2024 7:21 AM Age: 54 years old Clinical indication: Other: Sepsis; Additional info: Dyspnea/cough TECHNIQUE: Imaging protocol: Radiologic exam of the chest. Views: 1 view. COMPARISON: CR (CHEST, ) 03/07/2024 10:44 PM FINDINGS: Lungs: Unremarkable. No consolidation. Pleural spaces: Unremarkable. No pleural effusion. No pneumothorax. Heart/Mediastinum: Unremarkable. No cardiomegaly. Bones/joints: Unremarkable. XR/XR chest 1V portable [id number] IMPRESSION: No acute findings.
--- NOTE | 2024-04-09 07:14 | CTR_ITS ---
PROCEDURE INFORMATION: Exam: CT Abdomen And Pelvis With Contrast Exam date and time: 04/09/2024 7:15 AM Age: 54 years old Clinical indication: Other: Sepsis; Additional info: Abd pain TECHNIQUE: Imaging protocol: Computed tomography of the abdomen and pelvis with contrast. Radiation optimization: All CT scans at this facility use at least one of these dose optimization techniques: automated exposure control; mA and/or kV adjustment per patient size (includes targeted exams where dose is matched to clinical indication); or iterative reconstruction. Contrast material: OMNIPAQUE 350; Contrast volume: 100 ml; Contrast route: INTRAVENOUS (IV); COMPARISON: CT abdomen pelvis w con* [id number] 03/07/2024 8:25 PM RADIATION DOSE METRICS: Total DLP (mGy-cm): 841.2 FINDINGS: Lungs: There is mildly increased left lower lobe scarring versus atelectasis. Liver: Normal. No mass. Gallbladder and biliary ducts: The patient is status post cholecystectomy. Pancreas: Multiple pancreatic head calcifications are again seen which could indicate prior episodes of pancreatitis. Spleen: Normal. No splenomegaly. Adrenal glands: Normal. No mass. Kidneys and ureters: There is stable asymmetric fullness of the right collecting system. Multiple bilateral nonobstructing kidney stones are again identified. Stomach and bowel: There is a large amount of stool again seen in the rectum and there is mild circumferential rectal wall thickening. Otherwise there is no bowel obstruction. There is a right anterior abdominal wall ostomy noted. Appendix: No evidence of appendicitis. Intraperitoneal space: Unremarkable. No free air. No significant fluid collection. Vasculature: Unremarkable. No abdominal aortic aneurysm. Lymph nodes: Unremarkable. No enlarged lymph nodes. Urinary bladder: Unremarkable as visualized. Reproductive: The patient appears to be status post hysterectomy. Bones/joints: Unremarkable. No acute fracture. Soft tissues: Postsurgical changes are seen along the anterior abdominal wall. CT/CT abdomen pelvis w con* [id number] IMPRESSION: 1. Fecal impaction in the rectum with mild rectal wall thickening. This constellation of findings could represent stercoral colitis. Otherwise no bowel obstruction. 2. Asymmetric fullness of the right collecting system again seen. Nonobstructing bilateral kidney stones are again identified.
--- NOTE | 2024-04-09 07:15 | ECG_ITS ---
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 Measurements Intervals [place] Rate: 127 P: 83 MN: 150 QRS: -50 QRSD: 98 T: 82 QT: 335 QTc: 488 Interpretive Statements SINUS TACHYCARDIA INCOMPLETE RIGHT BUNDLE BRANCH BLOCK [90+ ms QRS DURATION, TERMINAL R IN V1/V2, 40+ ms S IN I/aVL/V4/V5/V6] LEFT ANTERIOR FASCICULAR BLOCK [QRS AXIS <= -45, QR IN I, RS IN II] NONSPECIFIC ST & T-WAVE ABNORMALITY Compared to ECG 06/03/2022 14:35:38 Left anterior fascicular block now present T-wave abnormality now present Sinus rhythm no longer present Electronically Signed On 04-10-2024 22:01:00 SDET by Simone Paul M.D. [email or web address]
[2024-04-09] MEDS: iohexol 350 mg/mL 500 mL Btl (per mL) IV (07:19)
--- NOTE | 2024-04-09 07:32 | ED_ITS ---
HPI - Altered Mental Status 2 General: Chief Complaint: Altered Mental Status Stated Complaint: UNRESPONSIVE Time Seen by Provider: 04/09/24 06:55 History of Present Illness: 54-year-old female with a history of str valerie and multiple sclerosis presents to the emergency room with altered mental status. She was here few days ago and seen Dr. Marie at that time notes reflect that she was awake alert and oriented could give a good history. Similar nursing staff today was here at that time as seeing her as well states she was conversive. This is significantly altered. I do not have the timeframe for when this began from the correction or calling for that there is no family members present. She has a recent bowel resection with an ostomy there is a healing midline abdominal incision with no signs of dehiscence or infection. Ostomy output appears acholic. She also has known sacral ulcers she has an indwelling Hernandez the output from the Hernandez does look as if she has a urinary tract infection she has mottling in her lower extremities. She is not not able to give me any history. Reviewing chart she does have a history of seizure disorder. Related Data Home Medications Medication Instructions Recorded Confirmed loratadine 10 mg tablet 10 mg PO DAILY@08 03/02/21 04/09/24 sodium phosphates 19 gram-7 118 ml IN DAILY PRN Constipation 03/02/21 04/09/24 gram/118 mL enema (Fleet Enema) potassium chloride 20 mEq 20 meq PO BID@08,17 04/20/21 04/09/24 tablet,extended release guaifenesin 200 mg/5 mL oral liquid 500 mg PO Q4H PRN Cough 09/16/21 04/09/24 Lactobacillus acidophilus 1 1,000 mmu cells PO BID 01/19/22 04/09/24 billion cell capsule fluticasone 500 mcg-salmeterol 50 1 inh inhalation BID 01/19/22 04/09/24 mcg/dose blistr powdr for inhalation (Advair Diskus) gabapentin 300 mg capsule 300 mg PO TID 01/19/22 04/09/24 magnesium hydroxide 400 mg/5 mL 30 ml PO BID PRN Constipation 01/19/22 04/09/24 oral suspension polyethylene glycol 3350 17 4 g PO DAILY 01/19/22 04/09/24 gram/dose oral powder (Miralax) omeprazole 20 mg capsule,delayed 20 mg PO DAILY 05/12/22 04/09/24 release lacosamide 200 mg tablet (Vimpat) 200 mg PO BID 05/13/22 04/09/24 melatonin 5 mg tablet 5 mg PO BEDTIME 05/13/22 04/09/24 methenamine hippurate 1 gram 1 g PO QID 05/13/22 04/09/24 tablet (Hiprex) simethicone 80 mg chewable tablet 80 mg PO QID PRN Gastrointestinal 05/13/22 04/09/24 Spasms Or Cramping venlafaxine 150 mg 150 mg PO DAILY 05/13/22 04/09/24 capsule,extended release 24 hr (Effexor XR) baclofen 20 mg tablet 20 mg PO BID 11/08/23 04/09/24 baclofen 20 mg tablet 40 mg PO BEDTIME 11/08/23 04/09/24 levetiracetam 1,000 mg tablet 1,500 mg PO BID 11/08/23 04/09/24 (Keppra) nystatin 100,000 unit/gram topical 1 applic topical QAM PRN SCALY AREA 12/19/23 04/09/24 cream albuterol sulfate 90 mcg/actuation 1 inh inhalation Q8H PRN Shortness 04/04/24 04/09/24 aerosol inhaler (Ventolin HFA) Of Breath ondansetron HCl 4 mg tablet 4 mg PO Q4H PRN Nausea And Vomiting 04/04/24 04/09/24 tramadol 50 mg tablet 50 mg PO Q4H PRN Pain 04/04/24 04/09/24 acetaminophen 325 mg tablet 650 mg PO Q6H Pain 04/09/24 04/09/24 ceftriaxone 1 gram intravenous 1 g IV QPM 04/09/24 04/09/24 solution collagenase clostridium histo. 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 Multiple sclerosis Seizure Anxiety Depression Hypertension Cerebellar tremor Anemia GERD (gastroesophageal reflux disease) Plantar callus Surgical History Status post laparoscopic cholecystectomy (07/16/21) S/P ERCP H/O cervical biopsy History of biopsy of bladder H/O: hysterectomy History of urostomy Family History Family/Other Cancer Hyperlipidemia Hypertension Denies family history of Diabetes CAD (coronary artery disease) Clotting disorder Dementia Psychiatric illness Chronic kidney disease (CKD) Suicide Anesthesia complication Bleeding disorder Family history of premature coronary artery disease Lung disease Stroke Social History Smoking and tobacco/nicotine status: unknown if used tobacco/nicotine Alcohol intake: never Substance/Drug Use: never Marital status: Current occupational status: retired and disabled Physical Exam 2 HENMT: COMMON NORMALS: normocephalic and atraumatic HEAD & SCALP: n ormocephalic and atraumatic Resp: COMMON NORMALS: normal respiratory effort, No retractions, No use of accessory muscles and clear to auscultation bilaterally AUSCULTATION: clear to auscultation bilaterally Cardio: COMMON NORMALS: regular rate, regular rhythm and No murmurs present (Cardio) RATE: regular rate RHYTHM: regular rhythm GI: COMMON NORMALS: Soft to palpation and No hepatosplenomegaly present A USCULTATION: Yes normoactive bowel sounds PALPATION: Yes Soft to palpation, No Tenderness to palpation present (GI), No Guarding due to palpation present (GI) and Yes No hepatosplenomegaly present OTHER: Recent abdominal surgery with healing midline abdominal incision Steri-Strips still in place no evidence of infection in the wound no evidence of dehiscence. Ostomy in the right mid abdomen output appears acholic : OTHER: Nephrostomy in place urine appears significantly abnormal. Extremity: COMMON NORMALS: normal to inspection, capillary refill normal, no clubbing, cyanosis or edema, no calf tenderness and no pedal edema Skin: COMMON NORMALS: no rashes or lesions noted GENERAL SKIN EXAM: no rashes or lesions noted Course 2 Vital Signs: Vital signs: Vital Signs Temperature 97.0 F L 04/12/24 04:00 Pulse Rate 68 04/12/24 06:20 Respiratory Rate 24 H 04/12/24 06:20 Blood Pressure 135/76 04/12/24 06:20 Pulse Oximetry 100 04/12/24 06:20 Oxygen Delivery Me thod Room Air 04/10/24 10:09 Oxygen Flow Rate 1 04/09/24 11:50 MDM - Altered Mental Status Medical Decision Making Altered mental status urosepsis. Patient is still full code. According to the correction usually she is conversant now she just states bowel on any stimulation she was seen a couple days ago and still was verbal at that time. Cultures done antibiotics initiated discussed Dr. Tellez for hospitalist orders written Lab Data 04/12/24 03:52 04/12/24 03:52 Radiology Impressions Chest X-Ray 04/09/24 06:55 IMPRESSION: No acute findings. Head CT 04/09/24 06:55 IMPRESSION: 1. No evidence of acute intracranial process. 2. Mild to moderately scattered white matter hypodensities. Differential considerations include chronic microvascular ischemic change, demyelinating disease, or gliosis from infectious/inflammatory source. Abdomen/Pelvis CT 04/09/24 07:14 IMPRESSION: 1. Fecal impaction in the rectum with mild rectal wall thickening. This constellation of findings could represent stercoral colitis. Otherwise no bowel obstruction. 2. Asymmetric fullness of the right collecting system again seen. Nonobstructing bilateral kidney stones are again identified. Laboratory Results WBC 16.15 10^3/uL (3.29-11.43) H 04/09/24 08:17 RBC 4.15 10^6/uL (3.85-5.65) 04/09/24 08:17 Hgb 11.40 g/dL (11.27-16.99) 04/09/24 08:17 Hct 38.9 % (36-47) 04/09/24 08:17 MCV 93.7 fl (85-98) 04/09/24 08:17 MCH 27.5 pg (27-33) 04/09/24 08:17 MCHC 29.3 g/dL (30-55) L 04/09/24 08:17 RDW 18.6 % (12.1-15.1) H 04/09/24 08:17 Plt Count 717 10^3/cmm (157-399) H 04/09/24 08:17 MPV 8.8 fL (7.4-10.4) 04/09/24 08:17 Neut % (Auto) 84.9 % 04/09/24 08:17 Lymph % (Auto) 7.9 % 04/09/24 08:17 [place] % (Auto) 6.4 % 04/09/24 08:17 Eos % (Auto) 0.0 % 04/09/24 08:17 Baso % (Auto) 0.1 % 04/09/24 08:17 Neut # (Auto) 13.71 10^3/uL (1.8-7.7) H 04/09/24 08:17 Lymph # (Auto) 1.3 10^3/uL (0.8-4.8) 04/09/24 08:17 [place] # (Auto) 1.0 10^3/uL (0.2-0.9) H 04/09/24 08:17 Eos # (Auto) 0.0 10^3/uL (0.0-0.8) 04/09/24 08:17 Baso # (Auto) 0.0 10^3/uL (0.0-0.1) 04/09/24 08:17 Nucleated RBC % (auto) 0 % 04/09/24 08:17 Nucleated RBCs # 0.0 /100WBC 04/09/24 08:17 Specimen Type Arterial 04/09/24 07:28 Sample Site Brachial, right 04/09/24 07:28 ABG pH 7.15 (7.35-7.45) L* 04/09/24 07:28 ABG pCO2 25.4 mmHg (35-45) L 04/09/24 07:28 ABG pO2 123.0 mmHg (80.0-100.0) H 04/09/24 07:28 ABG PO2/FiO2 Ratio 439 04/09/24 07:28 ABG HCO3 8.9 mmol/L (22-26) L 04/09/24 07:28 ABG O2 Saturation 98.4 04/09/24 07:28 ABG Base Excess -18.4 mmol/L (-2.0-2.0) L 04/09/24 07:28 Andrews Test Pos 04/09/24 07:28 A-a O2 Gradient 5.8 mmHg (5-10) 04/09/24 07:28 Hematocrit 33.6 % (37-47) L 04/09/24 07:28 Hgb O2 Saturation 97.1 % (95-100) 04/09/24 07:28 Carboxyhemoglobin 0.7 %THgb (0.4-20.1) 04/09/24 07:28 Methemoglobin 0.6 % (0.4-1.5) 04/09/24 07:28 Total Hemoglobin 11.0 g/dL (12-16) L 04/09/24 07:28 Sodium 155.0 mmol/L (131-143) H 04/09/24 07:28 Potassium 2.9 mmol/L (3.5-5.0) L 04/09/24 07:28 Glucose 120.0 mg/dL (70-115) H 04/09/24 07:28 Ionized Calcium 1.5 mmol/L (1.1-1.4) H 04/09/24 07:28 O2 Delivery Device Nc 04/09/24 07:28 O2 Liters/Min 2.0 % 04/09/24 07:28 FiO2 28.0 % 04/09/24 07:28 Marine Pilot ID Maximinoro 04/09/24 07:28 Sodium 148 mmol/L (136-145) H 04/09/24 08:17 Potassium 3.2 mmol/L (3.5-5.1) L 04/09/24 08:17 Chloride 126 mmol/L (98-107) H 04/09/24 08:17 Carbon Dioxide 11 mmol/L (22-29) L 04/09/24 08:17 Anion Gap 14.2 (5-19) 04/09/24 08:17 BUN 25 mg/dL (6-20) H 04/09/24 08:17 Creatinine 0.5 mg/dL (0.5-0.9) 04/09/24 08:17 GFR Calculation 128.6 mL/min (90-130) 04/09/24 08:17 Glucose 107 mg/dL (65-115) 04/09/24 08:17 Calculated Osmolality 311 mOsm/kg (285-295) H 04/09/24 08:17 Lactic Acid 1.8 mmol/L (0.5-2.2) 04/09/24 08:17 Calcium 10.0 mg/dL (8.5-10.5) 04/09/24 08:17 Total Bilirubin 0.2 mg/dL (0.15-1.2) 04/09/24 08:17 AST 15 U/L (0-32) 04/09/24 08:17 ALT 14 U/L (0-33) 04/09/24 08:17 Alkaline Phosphatase 144 U/L (35-105) H 04/09/24 08:17 Ammonia 66 umol/L (11-51) H 04/09/24 08:17 Creatine Kinase 61 U/L (26-192) 04/09/24 08:17 Total Protein 9.0 g/dL (6.6-8.7) H 04/09/24 08:17 Albumin 3.3 g/dL (3.5-5.2) L 04/09/24 08:17 Globulin 5.7 g/dL (1.3-4.6) H 04/09/24 08:17 Urine Color Other (Yellow) A 04/09/24 07:41 Urine Appearance Turbid (CLEAR) A 04/09/24 07:41 Urine pH TNP 04/09/24 07:41 Ur Specific [place] TNP 04/09/24 07:41 Urine Protein TNP 04/09/24 07:41 Urine Glucose (UA) TNP 04/09/24 07:41 Urine Ketones TNP 04/09/24 07:41 Urine Blood TNP 04/09/24 07:41 Urine Nitrate TNP 04/09/24 07:41 Urine Bilirubin TNP 04/09/24 07:41 Urine Urobilinogen TNP 04/09/24 07:41 Ur Leukocyte Esterase TNP 04/09/24 07:41 Urine RBC >100 /hpf (0-2) H 04/09/24 07:41 Urine WBC >100 /hpf (0-5) H 04/09/24 07:41 Ur Squamous Epith Cells 0-4 /hpf (0-5) H 04/09/24 07:41 Amorphous Sediment Not Reportable 04/09/24 07:41 Urine Bacteria 4+ /hpf (NONE) H 04/09/24 07:41 Salicylates < 0.3 mg/dL (3-10) L 04/09/24 08:17 Urine Opiates Screen Negative ng/mL (Negative) 04/09/24 07:41 Acetaminophen < 5.0 ug/mL (10-30) L 04/09/24 08:17 Ur Barbiturates Screen Negative ng/mL (Negative) 04/09/24 07:41 Lacosamide Level 8.2 mcg/mL 04/09/24 08:17 Levetiracetam 60.6 mcg/mL (6.0-46.0) H 04/09/24 08:17 Ur Phencyclidine Scrn Negative ng/mL (Negative) 04/09/24 07:41 Ur Amphetamines Screen Negative ng/mL (Negative) 04/09/24 07:41 U Benzodiazepines Scrn Negative ng/mL (Negative) 04/09/24 07:41 Urine Cocaine Screen Negative ng/mL (Negative) 04/09/24 07:41 U Marijuana (THC) Screen Negative ng/mL (Negative) 04/09/24 07:41 Ethyl Alcohol < 10 mg/dL (0-10) 04/09/24 08:17 Coronavirus (PCR) Negative (Negative) 04/09/24 07:41 Influenza A (PCR) Negative (Negative) 04/09/24 07:41 Influenza Type B (PCR) Negative (Negative) 04/09/24 07:41 RSV (PCR) Negative (Negative) 04/09/24 07:41 All radiology interpretation(s) finalized by discharge Discharge Plan Discharge Patient Disposition: Admitted As Inpatient Admit Provider: Haroon Tellez Clinical Impression: Acute metabolic encephalopathy, History of urostomy, Paraplegia, UTI (urinary tract infection), Hypernatremia, Multiple sclerosis, Sepsis, Encephalopathy acute, 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
[2024-04-09 07:40] LABS: ABG PCO2 25.4 mmHg (35-45); Arterial Blood Gas Hematocrit 33.6 % (37-47); Base Excess ABG -18.4 mmol/L (-2.0-2.0); Blood Gas Allen Test Pos; Blood Gas Sample Type Arterial; Carboxyhemoglobin 0.7 %THgb (0.4-20.1); HCO3 ABG 8.9 mmol/L (22-26); HGB O2 Sat 97.1 % (95-100); Ionized Calcium Level - ABG 1.5 mmol/L (1.1-1.4); Methemoglobin 0.6 % (0.4-1.5); Oxygen Saturation ABG 98.4; Potassium Level - ABG 2.9 mmol/L (3.5-5.0)
[2024-04-09 07:41] LABS: ABG PH Result 7.15 (7.35-7.45); Alveolar-Arterial Oxygen Gradi 5.8 mmHg (5-10); Blood Gas Operator Identificat MONRO; Blood Gas Sample Site Brachial, right; Oxygen Device NC; PO2 FiO2 Ratio Arterial Blood 439
[2024-04-09 08:15] LABS: Amphetamines Screen Urine Negative (Negative); Barbiturates Screen Urine Negative (Negative); Benzodiazepines Screen Urine Negative (Negative); Cocaine Screen Urine Negative (Negative); Opiate Screen Urine Negative (Negative); PCP Screen Urine Negative (Negative); THC Screen Urine Negative (Negative)
[2024-04-09 08:16] LABS: Add Urine Microscopic? YES; Bacteria Urine 4+ /hpf; RBC Urine >100 /hpf (0-2); Squamous Epithelial Cell Urine 0-4 /hpf (0-5); UA Manual Slide Review YES; Urine Appearance Turbid (CLEAR); WBC Urine >100 /hpf (0-5)
[2024-04-09 08:18] LABS: Add Urine Culture? Yes; Urine Color Other (Yellow)
[2024-04-09] MEDS: piperacillin-tazobactam 3.375 GM in sodium chloride 0.9% (plus) 50 ML IV (08:30)
[2024-04-09] MEDS: sodium chloride 0.9% 1,769.01 ML 1769.01 ML IV (08:31)
[2024-04-09 08:32] LABS: Basophils % 0.1 %; Hematocrit 38.9 % (36-47); Lymphocytes # 1.3 10^3/uL (0.8-4.8); Lymphocytes % 7.9 %; Mean Corpuscular HGB Conc 29.3 g/dL (30-55); Mean Corpuscular Hemoglobin 27.5 pg (27-33); Mean Corpuscular Volume 93.7 fl (85-98); Mean Platelet Volume 8.8 fL (7.4-10.4); Monocytes % 6.4 %; Neutrophils # 13.71 10^3/uL (1.8-7.7); Neutrophils % 84.9 %; Nucleated Red Blood Cells % 0 %; Platelet Count 717 10^3/cmm (157-399); Red Blood Count 4.15 10^6/uL (3.85-5.65); Red Cell Distribution Width 18.6 % (12.1-15.1); White Blood Count 16.15 10^3/uL (3.29-11.43)
[2024-04-09 08:44] LABS: Covid PCR NEGATIVE (Negative); Influenza A NEGATIVE (Negative); Influenza B NEGATIVE (Negative); Respiratory Syncytial Virus Ce NEGATIVE (Negative)
[2024-04-09 08:51] LABS: Lactic Sepsis W/Reflex 1.8 mmol/L (0.5-2.2)
[2024-04-09 08:52] LABS: Alanine Aminotransferase 14 U/L (0-33); Albumin Level 3.3 g/dL (3.5-5.2); Alkaline Phosphatase 144 U/L (35-105); Anion Gap 14.2 (5-19); Aspartate Amino Transferase 15 U/L (0-32); Blood Urea Nitrogen 25 mg/dL (6-20); Carbon Dioxide 11 mmol/L (22-29); Chloride 126 mmol/L (98-107); Creatine Phosphokinase 61 U/L (26-192); Creatinine Clr Calc Pharmacy 122.9436; Globulin 5.7 g/dL (1.3-4.6); Glomerular Filtration Rate 128.6 mL/min (90-130); Glucose 107 mg/dL (65-115); Osmolality Calculated 311 mOsm/kg (285-295); Potassium 3.2 mmol/L (3.5-5.1); Sodium 148 mmol/L (136-145); Total Bilirubin 0.2 mg/dL (0.15-1.2)
[2024-04-09 08:55] LABS: Acetaminophen < 5.0 ug/mL (10-30); Alcohol Level < 10 mg/dL (0-10); Salicylate < 0.3 mg/dL (3-10)
[2024-04-09 08:56] LABS: Ammonia 66 umol/L (11-51)
--- NOTE | 2024-04-09 10:34 | P.HP_ITS ---
Documented by User: Stefano Jensen 04/09/24 13:36 Providers/Chief Complaint 2 Admitting Physician: Haroon Tellez MD Primary Care Provider: Tony Keys MD Chief Complaint: UNRESPONSIVE History of Present Illness Teresa Moraes is a 54 y.o. female with history of MS, epilepsy, urostomy, and recent intra-abdominal surgery who presented to the ED with altered mental status. She is a resident of [facility]. She underwent exploratory laparotomy with adhesiolysis, diverticulum resection, and reduction of small bowel volvulus on 03/15 during a recent long hospitalization at [facility]. Records from this hospitalization were reviewed. She was seen here in the emergency department 5 days ago for AMS, but upon presentation to the ED she was conversive and answering questions appropriately. [facility] was contacted and informed us the current illness began around 3 days ago. There was concern for UTI and one dose of ceftriaxone had been administered. She has a history of urine cultures positive for psuedomonas aeruginosa, as well as ESBL proteus mirabilis. Today she does not converse verbally, however she did open her eyes and make slight movement when she was addressed. Unable to answer any questions. Review of Systems 2 Narrative: Unobtainable due to patient's current lack of verbal responsiveness. Medications/Allergies Home Medications Medication Instructions Recorded Confirmed Last Taken Type loratadine 10 mg tablet 10 mg PO DAILY@08 03/02/21 04/09/24 04/08/24 History sodium phosphates 19 gram-7 118 ml MD DAILY PRN Constipation 03/02/21 04/09/24 Unknown History gram/118 mL enema (Fleet Enema) potassium chloride 20 mEq 20 meq PO BID@08,17 04/20/21 04/09/24 04/08/24 History tablet,extended release guaifenesin 200 mg/5 mL oral liquid 500 mg PO Q4H PRN Cough 09/16/21 04/09/24 Unknown History Lactobacillus acidophilus 1 1,000 mmu cells PO BID 01/19/22 04/09/24 04/08/24 History billion cell capsule fluticasone 500 mcg-salmeterol 50 1 inh inhalation BID 01/19/22 04/09/24 04/08/24 History mcg/dose blistr powdr for inhalation (Advair Diskus) gabapentin 300 mg capsule 300 mg PO TID 01/19/22 04/09/24 04/08/24 History magnesium hydroxide 400 mg/5 mL 30 ml PO BID PRN Constipation 01/19/22 04/09/24 Unknown History oral suspension polyethylene glycol 3350 17 4 g PO DAILY 01/19/22 04/09/24 04/08/24 History gram/dose oral powder (Miralax) omeprazole 20 mg capsule,delayed 20 mg PO DAILY 05/12/22 04/09/24 04/08/24 History release lacosamide 200 mg tablet (Vimpat) 200 mg PO BID 05/13/22 04/09/24 04/08/24 History melatonin 5 mg tablet 5 mg PO BEDTIME 05/13/22 04/09/24 04/08/24 History methenamine hippurate 1 gram 1 g PO QID 05/13/22 04/09/24 04/08/24 History tablet (Hiprex) simethicone 80 mg chewable tablet 80 mg PO QID PRN Gastrointestinal 05/13/22 04/09/24 Unknown History Spasms Or Cramping venlafaxine 150 mg 150 mg PO DAILY 05/13/22 04/09/24 04/08/24 History capsule,extended release 24 hr (Effexor XR) baclofen 20 mg tablet 20 mg PO BID 11/08/23 04/09/24 04/08/24 History baclofen 20 mg tablet 40 mg PO BEDTIME 11/08/23 04/09/24 04/08/24 History levetiracetam 1,000 mg tablet 1,500 mg PO BID 11/08/23 04/09/24 04/08/24 History (Kedenise) nystatin 100,000 unit/gram topical 1 applic topical QAM PRN SCALY AREA 12/19/23 04/09/24 Unknown History cream albuterol sulfate 90 mcg/actuation 1 inh inhalation Q8H PRN Shortness 04/04/24 04/09/24 Unknown History aerosol inhaler (Ventolin HFA) Of Breath ondansetron HCl 4 mg tablet 4 mg PO Q4H PRN Nausea And Vomiting 04/04/24 04/09/24 03/30/24 History tramadol 50 mg tablet 50 mg PO Q4H PRN Pain 04/04/24 04/09/24 Unknown History acetaminophen 325 mg tablet 650 mg PO Q6H Pain 04/09/24 04/09/24 04/08/24 History ceftriaxone 1 gram intravenous 1 g IV QPM 04/09/24 04/09/24 04/08/24 History solution collagenase clostridium histo. 250 See Rx Instructions .Route .COMPLEX 04/09/24 04/09/24 04/08/24 History unit/gram topical ointment (Santyl) levetiracetam 500 mg tablet 500 mg PO BID 04/09/24 04/09/24 04/08/24 History Allergies Allergy/AdvReac Type Severity Reaction Status Date / Time No Known Allergies Allergy Verified 03/07/24 19:00 PFSH Acute 2 PFSH: Medical History Generalized epilepsy Gallstone pancreatitis Struvite kidney stones Onychodystrophy Depression, endogenous Staghorn renal calculus Multiple sclerosis Seizure Anxiety Depression Hypertension Cerebellar tremor Anemia GERD (gastroesophageal reflux disease) Plantar callus Surgical History Status post laparoscopic cholecystectomy (07/16/21) S/P ERCP H/O cervical biopsy History of biopsy of bladder H/O: hysterectomy History of urostomy Family History Family/Other Cancer Hyperlipidemia Hypertension Denies family history of Diabetes CAD (coronary artery disease) Clotting disorder Dementia Psychiatric illness Chronic kidney disease (CKD) Suicide Anesthesia complication Bleeding disorder Family history of premature coronary artery disease Lung disease Stroke Social History Smoking and tobacco/nicotine status: unknown if used tobacco/nicotine Alcohol intake: never Substance/Drug Use: never Marital status: Current occupational status: retired and disabled Vitals/I&O/Wt Last Vital Signs Temp 97.2 F L 04/09/24 07:36 Pulse 130 H 04/09/24 08:30 Resp 16 04/09/24 08:30 BP 126/102 04/09/24 08:30 Pulse Ox 100 04/09/24 08:30 O2 Del Method Nasal Cannula 04/09/24 07:36 O2 Flow Rate 2 04/09/24 07:36 Weight last 48 hrs Weight 130 lb Physical Exam 2 Narrative: General: Altered mental status. Verbally unresponsive. Abnormal posturing of lower extremities. HEENT: Normocephalic, atraumatic. Cardiovascular: Tachycardic. Regular rhythm. No murmur. Lungs: On 2L O2 via NC. Clear to auscultation bilaterally. Nonlabored breathing. Abdomen: Large midline abdominal incision; does not appear grossly infected; healing. Urostomy in place containing dark turbid fluid also with brown fibrinous material. Extremeties: Bilateral feet contracted in plantar flexion with flexion of toes. No gross deformity of upper extremities. Unable to cooperate with active motion or strength testing. Psych: Verbally unresponsive. Data 04/09/24 08:17 04/09/24 08:17 Micro: Microbiology 04/09/24 08:22 Blood Culture - Preliminary Blood SPECIMEN COLLECTED 04/09/24 08:17 Blood Culture - Preliminary Blood SPECIMEN COLLECTED CT Abd/Pel: My impression: Fecal impaction in rectum with wall thickening that could represent colitis. Bilateral kidney stones. Radiologist's impression: CT/CT abdomen pelvis w con* [id number] IMPRESSION: 1. Fecal impaction in the rectum with mild rectal wall thickening. This constellation of findings could represent stercoral colitis. Otherwise no bowel obstruction. 2. Asymmetric fullness of the right collecting system again seen. Nonobstructing bilateral kidney stones are again identified. A&P Assessment and plan (1) Sepsis: SOFA score of 3. Lactic acid 1.8 today. Meets sepsis criteria based on tachycardia, leukocytosis, and UTI in context of urostomy with ileal conduit. Has history of urine cultures growing pseudomonas, ESBL proteus mirabilis, and enterobacter cloacae. Recently underwent major intra-abdominal surgery and has midline abdominal incision that is not completely healed. Ordered IV meropenem and gentamicin. (2) UTI (urinary tract infection): Urinalysis reveals findings consistent with infection. Patient has urostomy with ileal conduit. Has history of urine cultures growing pseudomonas, ESBL proteus mirabilis, and enterobacter cloacae. Based on this history and antibiotic susceptibilities, prescribed IV meropenem and gentamicin. (3) Presence of urostomy: See above (4) Multiple sclerosis: Long-standing diagnosis of multiple sclerosis. Head CT from today reveals findings likely consistent with MS vs. other etiologies. Evaluation limited by mental status. Baclofen ordered. (5) Seizure disorder: Established history of seizure disorder. Currently verbally unresponsive, but does respond to verbal stimulus with eye opening and some body movement. No evidence of convulsions today. Lacosamide and Keppra ordered. (6) Hypernatremia: Sodium 148. Continue NaCl 0.9% since hypernatremia likely due to dehydration. Recheck BMP later today. (7) Hypokalemia: Potassium 3.2. Ordered 40 mEq IV KCl. Recheck BMP later today. (8) Decubitus ulcer: Stage 3. No evidence of current infection. Routine decubitus ulcer care protocol. Plan DVT prophylaxis: Lovenox Full code. Coding Level of Care Code Critical Care >/= 30 minutes Diagnoses Sepsis A41.9 UTI (urinary tract infection) N39.0 Presence of urostomy Z93.6 Multiple sclerosis G35 Seizure disorder G40.909 Hypernatremia E87.0 Hypokalemia E87.6 Decubitus ulcer L89.90 Documented by User: Haroon Tellez MD 04/09/24 13:36 Providers/Chief Complaint 2 Chief Complaint: UNRESPONSIVE Medications/Allergies Home Medications Medication Instructions Recorded Confirmed Last Taken Type loratadine 10 mg tablet 10 mg PO DAILY@08 03/02/21 04/09/24 04/08/24 History sodium phosphates 19 gram-7 118 ml MD DAILY PRN Constipation 03/02/21 04/09/24 Unknown History gram/118 mL enema (Fleet Enema) potassium chloride 20 mEq 20 meq PO BID@08,17 04/20/21 04/09/24 04/08/24 History tablet,extended release guaifenesin 200 mg/5 mL oral liquid 500 mg PO Q4H PRN Cough 09/16/21 04/09/24 Unknown History Lactobacillus acidophilus 1 1,000 mmu cells PO BID 01/19/22 04/09/24 04/08/24 History billion cell capsule fluticasone 500 mcg-salmeterol 50 1 inh inhalation BID 01/19/22 04/09/24 04/08/24 History mcg/dose blistr powdr for inhalation (Advair Diskus) gabapentin 300 mg capsule 300 mg PO TID 01/19/22 04/09/24 04/08/24 History magnesium hydroxide 400 mg/5 mL 30 ml PO BID PRN Constipation 01/19/22 04/09/24 Unknown History oral suspension polyethylene glycol 3350 17 4 g PO DAILY 01/19/22 04/09/24 04/08/24 History gram/dose oral powder (Miralax) omeprazole 20 mg capsule,delayed 20 mg PO DAILY 05/12/22 04/09/24 04/08/24 History release lacosamide 200 mg tablet (Vimpat) 200 mg PO BID 05/13/22 04/09/24 04/08/24 History melatonin 5 mg tablet 5 mg PO BEDTIME 05/13/22 04/09/24 04/08/24 History methenamine hippurate 1 gram 1 g PO QID 05/13/22 04/09/24 04/08/24 History tablet (Hiprex) simethicone 80 mg chewable tablet 80 mg PO QID PRN Gastrointestinal 05/13/22 04/09/24 Unknown History Spasms Or Cramping venlafaxine 150 mg 150 mg PO DAILY 05/13/22 04/09/24 04/08/24 History capsule,extended release 24 hr (Effexor XR) baclofen 20 mg tablet 20 mg PO BID 11/08/23 04/09/24 04/08/24 History baclofen 20 mg tablet 40 mg PO BEDTIME 11/08/23 04/09/24 04/08/24 History levetiracetam 1,000 mg tablet 1,500 mg PO BID 11/08/23 04/09/24 04/08/24 History (Keppra) nystatin 100,000 unit/gram topical 1 applic topical QAM PRN SCALY AREA 12/19/23 04/09/24 Unknown History cream albuterol sulfate 90 mcg/actuation 1 inh inhalation Q8H PRN Shortness 04/04/24 04/09/24 Unknown History aerosol inhaler (Ventolin HFA) Of Breath ondansetron HCl 4 mg tablet 4 mg PO Q4H PRN Nausea And Vomiting 04/04/24 04/09/24 03/30/24 History tramadol 50 mg tablet 50 mg PO Q4H PRN Pain 04/04/24 04/09/24 Unknown History acetaminophen 325 mg tablet 650 mg PO Q6H Pain 04/09/24 04/09/24 04/08/24 History ceftriaxone 1 gram intravenous 1 g IV QPM 04/09/24 04/09/24 04/08/24 History solution collagenase clostridium histo. 250 See Rx Instructions .Route .COMPLEX 04/09/24 04/09/24 04/08/24 History unit/gram topical ointment (Santyl) levetiracetam 500 mg tablet 500 mg PO BID 04/09/24 04/09/24 04/08/24 History Allergies Allergy/AdvReac Type Severity Reaction Status Date / Time No Known Allergies Allergy Verified 03/07/24 19:00 PFSH Acute 2 PFSH: Medical History Generalized epilepsy Gallstone pancreatitis Struvite kidney stones Onychodystrophy Depression, endogenous Staghorn renal calculus Multiple sclerosis Seizure Anxiety Depression Hypertension Cerebellar tremor Anemia GERD (gastroesophageal reflux disease) Plantar callus Surgical History Status post laparoscopic cholecystectomy (07/16/21) S/P ERCP H/O cervical biopsy History of biopsy of bladder H/O: hysterectomy History of urostomy Family History Family/Other Cancer Hyperlipidemia Hypertension Denies family history of Diabetes CAD (coronary artery disease) Clotting disorder Dementia Psychiatric illness Chronic kidney disease (CKD) Suicide Anesthesia complication Bleeding disorder Family history of premature coronary artery disease Lung disease Stroke Social History Smoking and tobacco/nicotine status: unknown if used tobacco/nicotine Alcohol intake: never Substance/Drug Use: never Marital status: Current occupational status: retired and disabled Physical Exam 2 Narrative: General: Altered mental status. Verbally unresponsive. Lower extremity contractures. Opens eyes to verbal stimuli HEENT: Normocephalic, atraumatic. Cardiovascular: Tachycardic. Regular rhythm. No murmur. Lungs: On 2L O2 via NC. Clear to auscultation bilaterally. Nonlabored breathing. Abdomen: Large midline abdominal incision; does not appear grossly infected; healing. Urostomy in place containing dark turbid fluid also with bolanos fibrinous material. Extremeties: Bilateral feet contracted in plantar flexion with flexion of toes. No gross deformity of upper extremities. Unable to cooperate with active motion or strength testing. Psych: Verbally unresponsive. Back stage 3 decub without evidence of infection Sepsis: Is patient septic: Yes Focused sepsis exam performed: Yes Date exam was performed: 04/09/24 Time exam was performed: 09:45 Data 04/09/24 08:17 04/09/24 08:17 Other Labs: Chest xray by my review no infiltrate. A&P Assessment and plan (1) Sepsis: SOFA score of 3. Lactic acid 1.8 today. Meets sepsis criteria based on tachycardia, leukocytosis, and UTI in context of urostomy with ileal conduit. Has history of urine cultures growing pseudomonas, ESBL proteus mirabilis, and enterobacter cloacae. Recently underwent major intra-abdominal surgery and has midline abdominal incision that is not completely healed. Ordered IV meropenem and gentamicin based on past cultures Associated with acute encephalopathy, infectious and metabolic (2) UTI (urinary tract infection): Urinalysis reveals findings consistent with infection. Patient has urostomy with ileal conduit. Has history of urine cultures growing pseudomonas, ESBL proteus mirabilis, and enterobacter cloacae. Based on this history and antibiotic susceptibilities, prescribed IV meropenem and gentamicin. No evidence of obstruction although right collecting system is full (3) Presence of urostomy: (4) Multiple sclerosis: (5) Seizure disorder: Established history of seizure disorder. Currently verbally unresponsive, but does respond to verbal stimulus with eye opening and some body movement. No evidence of convulsions today. Lacosamide and Keppra ordered. Keppra IV until po status improves. (6) Hypernatremia: (7) Hypokalemia: (8) Decubitus ulcer: Plan Acute encephalopathy, monitor for improvement Rather severe metabolic acidosis, with anion gap only 14. Recheck BMP around 3 PM Other medical problems as outlined in past medical history exam DVT prophylaxis: Lovenox Full code. Attestations 2 Medical Necessity Statement*: Will need greater than 2 midnight stay secondary to acute sepsis, with history of ESBL, with acute encephalopathy requiring ICU care Critical Care Time: The high probability of a clinically significant, sudden or life threatening deterioration of the patient's [infectious disease, metabolic, genitourinary, neurologic] system(s) required my full and direct attention, intervention and personal management. The critical care time is as shown. This time is in addition to time spent performing any reported procedures but includes the following: [x] Data and vital sign review and interpretation [x] Patient assessment, examination and intervention [x] Documentation [x] Medication orders and management Critical Care Time (min): 68 Coding Level of Care Code Critical Care >/= 30 minutes Critical care time (in minutes): 68 The high probability of a clinically significant, sudden or life threatening deterioration, as referenced in this documentation, required my full and direct attention, intervention and personal management. The critical care time shown is in addition to time spent performing any reported separately billable procedures and includes the following: [x] Data and vital sign review and interpretation [x ] Patient assessment, examination and intervention [x] Medication orders and management [x] Patient/Family updates as able [x] Care Coordination and Documentation. Diagnoses Sepsis A41.9 UTI (urinary tract infection) N39.0 Presence of urostomy Z93.6 Multiple sclerosis G35 Seizure disorder G40.909 Hypernatremia E87.0 Hypokalemia E87.6 Decubitus ulcer L89.90
[2024-04-09] MEDS: levETIRAcetam 1,000 MG/100 ML PREMIX 400 MG IV (10:35)
[2024-04-09] MEDS: sodium chloride 0.9% 1,000 ML 100 ML IV (11:26)
[2024-04-09] MEDS: meropenem 1,000 mg SDV 1000 MG IVP ×2 (11:27→18:26)
--- NOTE | 2024-04-09 11:50 | PC.PHAR ---
AMIKACIN WAS ORDERED WHICH PHARMACY DOES NOT HAVE IN STOCK; ADDITIONALLY [facility] IS NOT ABLE TO PROVIDE AMIKACIN THERAPEUTIC MONITORING. AFTER CONSULTING WITH DR LAW WE WILL GIVE GENTAMICIN, PT HAS PREVIOUS CULTURE SENSITIVITY INDICATING SUSCEPTIBILITY TO GENTAMICIN WITH KARLA < 2. GIVE GENTAMICIN EXTENDED INTERVAL DOSING (7MG/KG Q24H) 455MG Q24H CHECK GENTAMICIN RANDOM LEVEL 8-12 HOURS AFTER FIRST DOSE AND USE NOMOGRAM TO CONFIRM OR MODIFY DOSAGE INTERVAL CHECK GENTAMICIN TROUGH LEVEL 1 HOUR PRIOR TO NEXT DOSE PHARMACY TO MONITOR RENAL FUNCTION DAILY AND GENTAMICIN LEVELS NEEDED.
[2024-04-09] MEDS: GENTAMICIN IV (12:13)
[2024-04-09] MEDS: SODIUM CHLORIDE 0.9% IV (12:13)
[2024-04-09] MEDS: enoxaparin 40 mg/0.4 mL Syringe SUBCUT (12:17)
[2024-04-09] MEDS: lidocaine 1% 5 ML in potassium chloride premix 100 ML 26.25 ML IV ×2 (14:15→23:33)
[2024-04-09 16:11] LABS: Blood Urea Nitrogen 22 mg/dL (6-20); Calcium 9.4 mg/dL (8.5-10.5); Chloride 133 mmol/L (98-107); Creatinine Clr Calc Pharmacy 159.9063; Glomerular Filtration Rate 166.3 mL/min (90-130); Glucose 86 mg/dL (65-115); Osmolality Calculated 317 mOsm/kg (285-295); Sodium 152 mmol/L (136-145)
[2024-04-09 16:20] LABS: Anion Gap 14.5 (5-19); Carbon Dioxide 8 mmol/L (22-29); Potassium 3.5 mmol/L (3.5-5.1)
[2024-04-09 16:27] LABS: Creatine Phosphokinase 99 U/L (26-192)
[2024-04-09 16:36] LABS: ABG PCO2 22.1 mmHg (35-45); ABG PH Result 7.19 (7.35-7.45); Alveolar-Arterial Oxygen Gradi 1.8 mmHg (5-10); Arterial Blood Gas Hematocrit 35.4 % (37-47); Blood Gas Operator Identificat GD; Blood Gas Sample Site Brachial, left; Blood Gas Sample Type Arterial; Carboxyhemoglobin 0.7 %THgb (0.4-20.1); HCO3 ABG 8.4 mmol/L (22-26); Ionized Calcium Level - ABG 1.5 mmol/L (1.1-1.4); Methemoglobin 1.3 % (0.4-1.5); Oxygen Device ROOM AIR; PO2 FiO2 Ratio Arterial Blood 514; Potassium Level - ABG 2.9 mmol/L (3.5-5.0); Total Hemoglobin 11.6 g/dL (12-16)
[2024-04-09] MEDS: levETIRAcetam 1,500 MG/100 ML PREMIX 400 MG IV (21:12)
[2024-04-09 22:09] LABS: Gentamicin Random 6.9 (4-10)
[2024-04-09 22:10] LABS: Anion Gap 12.6 (5-19); Blood Urea Nitrogen 20 mg/dL (6-20); Calcium 9.2 mg/dL (8.5-10.5); Carbon Dioxide 11 mmol/L (22-29); Chloride 134 mmol/L (98-107); Creatinine Clr Calc Pharmacy 159.9063; Glomerular Filtration Rate 166.3 mL/min (90-130); Glucose 109 mg/dL (65-115); Osmolality Calculated 323 mOsm/kg (285-295); Sodium 155 mmol/L (136-145)
[2024-04-09 22:11] LABS: Potassium 2.6 mmol/L (3.5-5.1)
[2024-04-10] VITALS (232 sets, daily range): BP systolic 101–172; BP diastolic 57–139; PULSE 65–111; RESP 10–36; TEMP 36.7–37.1; O2SAT 91–100
[2024-04-10] MEDS: meropenem 1,000 mg SDV 1000 MG IVP ×3 (02:56→18:31)
[2024-04-10 04:18] LABS: Basophils % 0.2 %; Hematocrit 32.3 % (36-47); Lymphocytes # 1.9 10^3/uL (0.8-4.8); Lymphocytes % 18.3 %; Mean Corpuscular HGB Conc 29.1 g/dL (30-55); Mean Corpuscular Hemoglobin 27.6 pg (27-33); Mean Corpuscular Volume 94.7 fl (85-98); Mean Platelet Volume 9.1 fL (7.4-10.4); Monocytes % 9.4 %; Neutrophils # 7.27 10^3/uL (1.8-7.7); Neutrophils % 71.6 %; Nucleated Red Blood Cells % 0 %; Platelet Count 562 10^3/cmm (157-399); Red Blood Count 3.41 10^6/uL (3.85-5.65); Red Cell Distribution Width 18.4 % (12.1-15.1); White Blood Count 10.16 10^3/uL (3.29-11.43)
[2024-04-10 04:48] LABS: Alanine Aminotransferase 13 U/L (0-33); Albumin Level 2.5 g/dL (3.5-5.2); Alkaline Phosphatase 117 U/L (35-105); Blood Urea Nitrogen 19 mg/dL (6-20); Calcium 9.3 mg/dL (8.5-10.5); Carbon Dioxide 11 mmol/L (22-29); Chloride 133 mmol/L (98-107); Creatinine Clr Calc Pharmacy 213.2083; Glomerular Filtration Rate 231.8 mL/min (90-130); Glucose 101 mg/dL (65-115); Magnesium 2.4 mg/dL (1.7-2.3); Osmolality Calculated 318 mOsm/kg (285-295); Sodium 153 mmol/L (136-145); Total Bilirubin 0.3 mg/dL (0.15-1.2); Total Protein 7.5 g/dL (6.6-8.7)
[2024-04-10 04:51] LABS: Anion Gap 12.7 (5-19); Aspartate Amino Transferase 20 U/L (0-32); Potassium 3.7 mmol/L (3.5-5.1)
[2024-04-10] MEDS: LORazepam 2 mg/mL INJ 1 mL 1 MG IVP (08:32)
[2024-04-10] MEDS: pantoprazole 40 mg SDV IVP (08:36)
[2024-04-10] MEDS: orphenadrine 30 mg/mL Inj 2 mL 60 MG IVP ×2 (08:37→17:09)
--- NOTE | 2024-04-10 08:38 | P.PN_ITS ---
Documented by User: Stefano Jensen 04/10/24 09:11 Subjective 2 Subjective: Teresa Moraes is a 54 y.o. female admitted to the ICU with altered mental status. She is still verbally unresponsive today. No family present at this time. CT yesterday showed fecal impaction and she is still yet to have a bowel movement per nursing. No notable overnight events. Medications: Reviewed: Yes Vitals/I&O/Wt Last Vital Signs Temp 98.8 F 04/10/24 02:00 Pulse 70 04/10/24 06:10 Resp 14 04/10/24 06:10 BP 128/83 04/10/24 06:10 Pulse Ox 100 04/10/24 06:10 O2 Del Method Nasal Cannula 04/09/24 11:50 O2 Flow Rate 1 04/09/24 11:50 04/09/24 04/10/24 04/10/24 22:59 06:59 14:59 Intake Total 890 / 2920.385 1000 / 3920.385 105 / 105 Output Total 1350 / 1350 600 / 1950 Balance -460 / 1570.385 400 / 1970.385 105 / 105 Weight last 48 hrs Weight 137 lb 12.623 oz Weight 143 lb 8.335 oz Weight 130 lb Physical Exam 2 Narrative: General: Altered mental status. Verbally unresponsive. Lower extremity contractures. Opens eyes to verbal stimuli. HEENT: Normocephalic, atraumatic. Cardiovascular: Tachycardic. Regular rhythm. No murmur. Lungs: Clear to auscultation bilaterally. Nonlabored breathing. Abdomen: Large midline abdominal incision; does not appear grossly infected; healing. Urostomy in place containing dark turbid fluid also with bolanos fibrinous material. Extremities: Bilateral feet contracted in plantar flexion with flexion of toes. Pads in place on heels for ulcer prevention. No gross deformity of upper extremities. Unable to cooperate with active motion or strength testing. Psych: Verbally unresponsive. Back: Stage 3 decubitus ulceration without evidence of infection. Sepsis: Is patient septic: Yes Focused sepsis exam performed: Yes Date exam was performed: 04/09/24 Time exam was performed: 09:45 Data 04/10/24 03:24 04/10/24 03:24 Other Labs: pH trending up. Micro: Microbiology 04/09/24 08:22 Blood Culture - Preliminary Blood NEGATIVE TO DATE 04/09/24 08:17 Blood Culture - Preliminary Blood NEGATIVE TO DATE A&P Assessment and plan (1) Sepsis: SOFA score of 3. Lactic acid 1.8 yesterday. Tachycardia and leukocytosis seem to be improving. Treating for UTI in context of urostomy with ileal conduit. Has history of urine cultures growing pseudomonas, ESBL proteus mirabilis, and enterobacter cloacae. Recently underwent major intra-abdominal surgery and has midline abdominal incision that is not completely healed. Continue meropenem and gentamicin Associated with acute encephalopathy, infectious and metabolic. (2) UTI (urinary tract infection): Urinalysis reveals findings consistent with infection. Patient has urostomy with ileal conduit. Has history of urine cultures growing pseudomonas, ESBL proteus mirabilis, and enterobacter cloacae. Based on this history and antibiotic susceptibilities, prescribed IV meropenem and gentamicin which we plan to continue at this time. No evidence of obstruction although right collecting system is full (3) Presence of urostomy: See above (4) Multiple sclerosis: Long-standing diagnosis of multiple sclerosis. Head CT from yesterday showed findings likely consistent with MS vs. other etiologies. Evaluation limited by mental status. Continue Baclofen. (5) Seizure disorder: Established history of seizure disorder. Currently verbally unresponsive, but does respond to verbal stimulus with eye opening and some body movement. No evidence of convulsions today. IV Lacosamide ordered. Continue Keppra IV until PO status improves. (6) Hypernatremia: Sodium 153 this morning, worsened from 148 yesterday morning. NaCl 0.9% has been discontinued. Currently receiving D5W at 125 mL/hr. Recheck BMP. (7) Hypokalemia: Potassium 3.7 this morning, improved from low of 2.6 last night. Ordered 40 mEq IV KCl. Recheck BMP. (8) Decubitus ulcer: Stage 3. No evidence of current infection. Routine decubitus ulcer care protocol. Plan Acute encephalopathy, monitor for improvement Rather severe metabolic acidosis, with anion gap of 12.7 today. Recheck BMP around 9:30 Glycerin suppository for fecal impaction evidenced on CT Other medical problems as outlined in past medical history exam DVT prophylaxis: Lovenox Full code. Coding Level of Care Code Critical Care >/= 30 minutes Diagnoses Sepsis A41.9 UTI (urinary tract infection) N39.0 Presence of urostomy Z93.6 Multiple sclerosis G35 Seizure disorder G40.909 Hypernatremia E87.0 Hypokalemia E87.6 Decubitus ulcer L89.90 Time Spent (min) 35 Documented by User: Haroon Tellez MD 04/10/24 09:19 Data 04/10/24 03:24 04/10/24 03:24 A&P Assessment and plan (1) Sepsis: SOFA score of 3. Lactic acid 1.8 yesterday. Tachycardia and leukocytosis seem to be improving. Treating for UTI in context of urostomy with ileal conduit. Has history of urine cultures growing pseudomonas, ESBL proteus mirabilis, and enterobacter cloacae. Recently underwent major intra-abdominal surgery and has midline abdominal incision that is not completely healed. Continue meropenem and gentamicin Associated with acute encephalopathy, infectious and metabolic. Blood culture negative to date (2) UTI (urinary tract infection): Urinalysis reveals findings consistent with infection. Patient has urostomy with ileal conduit. Has history of urine cultures growing pseudomonas, ESBL proteus mirabilis, and enterobacter cloacae. Based on this history and antibiotic susceptibilities, prescribed IV meropenem and gentamicin which we plan to continue at this time. No evidence of obstruction although right collecting system is full Urine culture pending (3) Presence of urostomy: (4) Multiple sclerosis: Long-standing diagnosis of multiple sclerosis. Head CT from yesterday showed findings likely consistent with MS vs. other etiologies. Evaluation limited by mental status. Inability to take p.o. Will give 1 dose of IV muscle relaxer, IV Ativan to child guidance counselor response. Certainly restart her baclofen when she is more alert. (5) Seizure disorder: (6) Hypernatremia: Sodium slightly improved from last measurement. Repeat again around 9 AM. Continue D5W with 100 mill equivalents of sodium bicarb per liter at 125 cc an hour (7) Hypokalemia: (8) Decubitus ulcer: Attestations 2 Medical Necessity Statement*: Needs continued hospital stay secondary to persistent hyponatremia, encephalopathy, sepsis with concern of ongoing infection. Still critically ill. Critical Care Time: The high probability of a clinically significant, sudden or life threatening deterioration of the patient's [neurologic, infectious] system(s) required my full and direct attention, intervention and personal management. The critical care time is as shown. This time is in addition to time spent performing any reported procedures but includes the following: [x] Data and vital sign review and interpretation [x] Patient assessment, examination and intervention [x] Documentation [x] Medication orders and management Critical Care Time (min): 34 Coding Level of Care Code Critical Care >/= 30 minutes Critical care time (in minutes): 34 The high probability of a clinically significant, sudden or life threatening deterioration, as referenced in this documentation, required my full and direct attention, intervention and personal management. The critical care time shown is in addition to time spent performing any reported separately billable procedures and includes the following: [x] Data and vital sign review and interpretation [x ] Patient assessment, examination and intervention [x] Medication orders and management [x] Patient/Family updates as able [x] Care Coordination and Documentation. Diagnoses Sepsis A41.9 UTI (urinary tract infection) N39.0 Presence of urostomy Z93.6 Multiple sclerosis G35 Seizure disorder G40.909 Hypernatremia E87.0 Hypokalemia E87.6 Decubitus ulcer L89.90 Time Spent (min) 35
[2024-04-10] MEDS: lacosamide 100 MG in sodium chloride 0.9% 50 ML 120 MG IV (08:40)
[2024-04-10] MEDS: glycerin adult supp 1 EACH PR (08:50)
[2024-04-10] MEDS: levETIRAcetam 1,500 MG/100 ML PREMIX 400 MG IV ×2 (10:16→22:54)
[2024-04-10] MEDS: enoxaparin 40 mg/0.4 mL Syringe SUBCUT (10:33)
[2024-04-10 11:46] LABS: Gentamicin Trough 0.7 ug/mL (0.0-8.0)
[2024-04-10 12:21] LABS: Anion Gap 12.3 (5-19); Blood Urea Nitrogen 17 mg/dL (6-20); Calcium 9.3 mg/dL (8.5-10.5); Carbon Dioxide 17 mmol/L (22-29); Chloride 129 mmol/L (98-107); Creatinine Clr Calc Pharmacy 209.6887; Glomerular Filtration Rate 231.8 mL/min (90-130); Glucose 112 mg/dL (65-115); Osmolality Calculated 324 mOsm/kg (285-295); Sodium 156 mmol/L (136-145)
[2024-04-10 12:23] LABS: Potassium 2.3 mmol/L (3.5-5.1)
[2024-04-10] MEDS: dextrose 5% + KCl 20 mEq 20 MEQ/1,000 ML BAG 125 MEQ IV ×2 (12:49→23:04)
[2024-04-10] MEDS: SODIUM CHLORIDE 0.9% IV (12:51)
[2024-04-10] MEDS: GENTAMICIN IV (12:51)
[2024-04-10 12:54] LABS: Levetiracetam Immunoassy 60.6 mcg/mL (6.0-46.0)
[2024-04-10] MEDS: lidocaine 1% 5 ML in potassium chloride premix 100 ML 26.25 ML IV (12:57)
--- NOTE | 2024-04-10 16:26 | PM.CONSULT ---
Providers/Reason For Consult Consulting Physician/Specialty*: Heriberto Hou MD neurology and epilepsy Reason for Consult*: Decreased level consciousness/encephalopathy in patient with history of multiple sclerosis and epilepsy Attending Physician: Haroon Tellez MD Primary Care Provider: Tony Keys MD History of Present Illness History of Present Illness Teresa Moraes is a 54 year old female with a history of intractable epilepsy treated with Vimpat, Keppra and Neurontin. The patient also has a history of multiple sclerosis with lower extremity paralysis. The patient resides in a senior care facility and was reported to be able to feed herself and hold conversations. The patient was admitted with decreased level consciousness with urosepsis and acidosis. Following correction of the patient's metabolic abnormalities the patient mental status has not improved. Patient reported to lie in bed moaning with her jaws clenched with inability to open her mouth passively. Noncontrast head CT 04/04/2024 revealed the following: There is global parenchymal volume loss. Periventricular white matter hypoattenuation is nonspecific but most likely due to small vessel disease. No evidence of acute territorial infarct or cerebral edema. No mass effect or midline shift. Noncontrast head CT 04/09/2024 revealed the following: IMPRESSION: 1. No evidence of acute intracranial process. 2. Mild to moderately scattered white matter hypodensities. Differential considerations include chronic microvascular ischemic change, demyelinating disease, or gliosis from infectious/inflammatory source. Metabolic lab revealed improving acidosis with hypernatremia and hypokalemia. In view of the patient's history of seizures and multiple sclerosis and decreased level consciousness a neurology consult was obtained. Drug allergies: No known drug allergies Current home medications: Lacosamide (Vimpat) 200 mg p.o. twice daily Keppra 500 mg p.o. twice daily Keppra 1500 mg p.o. twice daily Melatonin 5 mg p.o. nightly Hiprex 1 g p.o. 4 times daily Omeprazole 4 mg p.o. every 4 hours as needed for nausea vomit MiraLAX Potassium chloride 20 mEq twice daily Tramadol 50 mg p.o. every 4 hours as needed for pain Effexor XR 150 mg p.o. day Loratadine 10 mg p.o. daily Neurontin 300 mg p.o. 3 times daily Guaifenesin 200 mg per 5 mL 500 mg every 4 hours as needed Baclofen 40 mg p.o. nightly Baclofen 20 mg p.o. twice daily Past medical history: Intractable epilepsy Multiple sclerosis associated with lower extremity paralysis and nonambulatory Decubitus ulcers Sepsis Hypotension Cholecystectomy Urostomy Normocytic anemia Neurogenic bladder Small bowel obstruction Urinary tract infection Depression Colitis Constipation Gallstone pancreatitis Decubitus ulcer right foot Decubitus ulcer right heel Partial small bowel obstruction Hydronephrosis of the right kidney Struvite kidney stones History of nicotine dependence Habits: Unknown Social history: The patient resides in a senior care Family history: Unable to obtain Review of Systems General: Reports: ROS unobtainable due to medical condition Medications/Allergies Home Medications Medication Instructions Recorded Confirmed Last Taken Type loratadine 10 mg tablet 10 mg PO DAILY@08 03/02/21 04/09/24 04/08/24 History sodium phosphates 19 gram-7 118 ml UT DAILY PRN Constipation 03/02/21 04/09/24 Unknown History gram/118 mL enema (Fleet Enema) potassium chloride 20 mEq 20 meq PO BID@08,17 04/20/21 04/09/24 04/08/24 History tablet,extended release guaifenesin 200 mg/5 mL oral liquid 500 mg PO Q4H PRN Cough 09/16/21 04/09/24 Unknown History Lactobacillus acidophilus 1 1,000 mmu cells PO BID 01/19/22 04/09/24 04/08/24 History billion cell capsule fluticasone 500 mcg-salmeterol 50 1 inh inhalation BID 01/19/22 04/09/24 04/08/24 History mcg/dose blistr powdr for inhalation (Advair Diskus) gabapentin 300 mg capsule 300 mg PO TID 01/19/22 04/09/24 04/08/24 History magnesium hydroxide 400 mg/5 mL 30 ml PO BID PRN Constipation 01/19/22 04/09/24 Unknown History oral suspension polyethylene glycol 3350 17 4 g PO DAILY 01/19/22 04/09/24 04/08/24 History gram/dose oral powder (Miralax) omeprazole 20 mg capsule,delayed 20 mg PO DAILY 05/12/22 04/09/24 04/08/24 History release lacosamide 200 mg tablet (Vimpat) 200 mg PO BID 05/13/22 04/09/24 04/08/24 History melatonin 5 mg tablet 5 mg PO BEDTIME 05/13/22 04/09/24 04/08/24 History methenamine hippurate 1 gram 1 g PO QID 05/13/22 04/09/24 04/08/24 History tablet (Hiprex) simethicone 80 mg chewable tablet 80 mg PO QID PRN Gastrointestinal 05/13/22 04/09/24 Unknown History Spasms Or Cramping venlafaxine 150 mg 150 mg PO DAILY 05/13/22 04/09/24 04/08/24 History capsule,extended release 24 hr (Effexor XR) baclofen 20 mg tablet 20 mg PO BID 11/08/23 04/09/24 04/08/24 History baclofen 20 mg tablet 40 mg PO BEDTIME 11/08/23 04/09/24 04/08/24 History levetiracetam 1,000 mg tablet 1,500 mg PO BID 11/08/23 04/09/24 04/08/24 History (Keppra) nystatin 100,000 unit/gram topical 1 applic topical QAM PRN SCALY AREA 12/19/23 04/09/24 Unknown History cream albuterol sulfate 90 mcg/actuation 1 inh inhalation Q8H PRN Shortness 04/04/24 04/09/24 Unknown History aerosol inhaler (Ventolin HFA) Of Breath ondansetron HCl 4 mg tablet 4 mg PO Q4H PRN Nausea And Vomiting 04/04/24 04/09/24 03/30/24 History tramadol 50 mg tablet 50 mg PO Q4H PRN Pain 04/04/24 04/09/24 Unknown History acetaminophen 325 mg tablet 650 mg PO Q6H Pain 04/09/24 04/09/24 04/08/24 History ceftriaxone 1 gram intravenous 1 g IV QPM 04/09/24 04/09/24 04/08/24 History solution collagenase clostridium histo. 250 See Rx Instructions .Route .COMPLEX 04/09/24 04/09/24 04/08/24 History unit/gram topical ointment (Santyl) levetiracetam 500 mg tablet 500 mg PO BID 04/09/24 04/09/24 04/08/24 History Allergies Allergy/AdvReac Type Severity Reaction Status Date / Time No Known Allergies Allergy Verified 03/07/24 19:00 Current Medications Generic Name Dose Route Start Last Admin Trade Name Freq PRN Reason Stop Dose Admin Enoxaparin Sodium 40 mg 04/09/24 11:30 04/10/24 10:33 Enoxaparin 40 Mg/0.4 Ml Syringe SUBCUT 40 mg Q24H BIJAN Administration Levetiracetam 1,500 mg in 100 mls @ 400 mls/hr 04/09/24 22:00 04/10/24 10:34 Keppra IV Infused Q12H BIJAN Infusion Gentamicin Sulfate 455 mg/ 111.375 mls @ 222.75 mls/hr 04/09/24 12:00 04/10/24 13:33 Sodium Chloride IV Infused Q24H BIJAN Infusion Potassium Chloride/Dextrose 20 meq in 1,000 mls @ 125 mls/hr 04/10/24 12:45 04/10/24 12:49 Dextrose 5% + Kcl 20 Meq IV 125 mls/hr .Q8H BIJAN Administration Lidocaine HCl 5 ml/ Potassium 105 mls @ 26.25 mls/hr 04/10/24 12:30 04/10/24 12:57 Chloride IV 04/10/24 16:29 26.25 mls/hr ONCE ONE Administration Meropenem 1,000 mg 04/09/24 11:01 04/10/24 10:14 Meropenem 1,000 Mg Sdv IVP 1,000 mg Q8H BIJAN Administration Protocol Pantoprazole Sodium 40 mg 04/10/24 09:00 04/10/24 08:36 Pantoprazole 40 Mg Sdv IVP 40 mg DAILY BIJAN Administration Venlafaxine HCl 150 mg 04/10/24 09:00 04/10/24 09:07 Venlafaxine Er (24hr) 150 Mg Capsule PO Not Given DAILY BIJAN PFSH Acute PFSH: Medical History Generalized epilepsy Gallstone pancreatitis Struvite kidney stones Onychodystrophy Depression, endogenous Staghorn renal calculus Multiple sclerosis Seizure Anxiety Depression Hypertension Cerebellar tremor Anemia GERD (gastroesophageal reflux disease) Plantar callus Surgical History Status post laparoscopic cholecystectomy (07/16/21) S/P ERCP H/O cervical biopsy History of biopsy of bladder H/O: hysterectomy History of urostomy Family History Family/Other Cancer Hyperlipidemia Hypertension Denies family history of Diabetes CAD (coronary artery disease) Clotting disorder Dementia Psychiatric illness Chronic kidney disease (CKD) Suicide Anesthesia complication Bleeding disorder Family history of premature coronary artery disease Lung disease Stroke Social History Smoking and tobacco/nicotine status: unknown if used tobacco/nicotine Alcohol intake: never Substance/Drug Use: never Marital status: Current occupational status: retired and disabled Vitals/I&O/Wt Last Vital Signs Temp 98.8 F 04/10/24 02:00 Pulse 75 04/10/24 16:05 Resp 10 L 04/10/24 16:05 BP 110/68 04/10/24 16:05 Pulse Ox 99 04/10/24 16:05 O2 Del Method Room Air 04/10/24 10:09 O2 Flow Rate 1 04/09/24 11:50 04/10/24 04/10/24 04/10/24 06:59 14:59 22:59 Intake Total 1000 / 3920.385 1699.292 / 1699.292 Output Total 600 / 1950 Balance 400 / 7543.376 9445.292 / 1699.292 Weight last 48 hrs Weight 137 lb 12.623 oz Weight 143 lb 8.335 oz Weight 130 lb Physical Exam Narrative: Blood pressure 110/68 heart rate 75 respirations 18 temperature 98.8 ?F O2 saturation 99% on room air The patient is lying in bed in a supine position patient has lower extremity paralysis with contractures of her lower extremities and heels and ankles lower extremity in a varus deformity. Patient has close but periodically moan spontaneously. Pupils 4 to 5 mm reactive to light and accommodation. Patient has positive doll's eyes. Neck revealed no obvious meningeal signs. Head reveals no obvious signs of trauma. Patient does not follow commands. I was unable to open the patient's mouth secondary to her teeth/jaws being clenched together. There was no signs of hyperextension of her trunk. Motor testing revealed no spontaneous movement. Patient did have increased tone in the upper extremities bilaterally which appeared to improved slightly with repeated flexion and extension of her arms. Patient had lower extremity spasticity and tonic contractures of her ankles and feet bilaterally. There was no movement or moaning or grimacing to pain applied to her nailbeds on the lower extremities. Patient did moan with sternal rub. Throat could not be visualized secondary to the patient's mouth being clenched together. Lungs revealed no obvious wheezing. Heart regular rhythm and rate. Chest and abdomen reveal surgical scars without obvious sign of infection. Extremities were negative for cyanosis. Data 04/10/24 03:24 04/10/24 11:08 Micro: Microbiology 04/09/24 07:41 Urine Culture - Preliminary Urine,Clean Catch Gram Negative Rods 04/09/24 08:22 Blood Culture - Preliminary Blood NEGATIVE TO DATE 04/09/24 08:17 Blood Culture - Preliminary Blood NEGATIVE TO DATE A&P Assessment and plan (1) Encephalopathy acute: Impression: 1. Acute metabolic encephalopathy 2. History of seizure disorder assess for subclinical status epilepticus 3. History of multiple sclerosis with lower extremity paralysis (the patient is on no medications for multiple sclerosis) 4. Hypernatremia 5. Hypokalemia 6. Metabolic acidosis, improved Plan: 1. Agree with IV Keppra and IV Vimpat at current dose 2. Recommend obtaining trough Keppra and Vimpat levels on 04/11/2024 3. Consider placing NG tube to resume Neurontin 300 mg 3 times daily 4. Will obtain bedside surface EEG recording to assess for subclinical status epilepticus 5. If bedside surface EEG recording is negative for subclinical seizure activity, recommend obtaining head MRI without contrast to assess for brainstem stroke 6. If head MRI is unremarkable consider obtaining lumbar puncture under fluoroscopy by radiology to rule out [employer] infection (2) Multiple sclerosis: (3) Seizure disorder: Consult Attestations Medical Necessity Statement: The patient was evaluated by neurology for decreased level consciousness/encephalopathy and history of seizures to assess for subclinical status epilepticus and to evaluate patient for potential causes of encephalopathy. Coding Level of Care Code 05522 Diagnoses Encephalopathy acute G93.40 Multiple sclerosis G35 Seizure disorder G40.909
[2024-04-10 17:57] LABS: Blood Urea Nitrogen 15 mg/dL (6-20); Calcium 9.3 mg/dL (8.5-10.5); Carbon Dioxide 18 mmol/L (22-29); Chloride 129 mmol/L (98-107); Creatinine Clr Calc Pharmacy 209.6887; Glomerular Filtration Rate 231.8 mL/min (90-130); Glucose 101 mg/dL (65-115); Osmolality Calculated 317 mOsm/kg (285-295); Sodium 153 mmol/L (136-145)
--- NOTE | 2024-04-10 17:59 | P.PCN_ITS ---
Documented by User: Essie Del Cidcamp 04/10/24 18:03 Procedure/Consent Procedure Narrative: Bedside surface EEG recording to assess for subclinical status epilepticus If bedside surface EEG recording is negative for subclinical seizure activity, recommend obtaining head MRI without contrast to assess for brainstem stroke EEG Routine Details of [place] [address]- coma or sleep only: 11310 (bedside surface EEG recording to assess for subclinical status epilepticus ) Documented by User: Heriberto Hou MD 04/11/24 08:51 EEG Routine Details of Procedure Details/Comments: EEG TEMPLATE: This is a 19 channel routine video surface EEG recording utilizing the [employer] software with surface and EKG electrodes. The procedure was performed utilizing the international 10-20 system. Patient name: Teresa Moraes Date of : 1970 Patient age [age] years old Identification number: [id number] Referring Physician: Heriberto Hou MD EEG#: EEG Start time: 18:31:34 EEG End time: 18:52:08 Duration of study: 20 minutes Date of study: 04/10/2024 Reason for study: Altered mental status with decreased level consciousness and patient with history of intractable epilepsy. Bedside EEG recording performed to assess for subclinical status epilepticus and to assist in determining if additional or alternative anticonvulsant medications are required. Skull defects: None Condition of recording: The patient was reported to be sedated Cooperation: N/A the patient in intensive care unit with sedation but teeth still flexed and patient unable to cooperate Activation procedures: None Medications: Lacosamide (Vimpat) 200 mg p.o. twice daily Keppra 500 mg p.o. twice daily Keppra 1500 mg p.o. twice daily Melatonin 5 mg p.o. nightly Hiprex 1 g p.o. 4 times daily Omeprazole 4 mg p.o. every 4 hours as needed for nausea vomit MiraLAX Potassium chloride 20 mEq twice daily Tramadol 50 mg p.o. every 4 hours as needed for pain Effexor XR 150 mg p.o. day Loratadine 10 mg p.o. daily Neurontin 300 mg p.o. 3 times daily Guaifenesin 200 mg per 5 mL 500 mg every 4 hours as needed Baclofen 40 mg p.o. nightly Baclofen 20 mg p.o. twice daily Background activity: Background activity during wakefulness consisted of generalized low voltage 6 Hz theta activity penetrated by intermittent low voltage beta activity centrally and anteriorly. During the recording the record was obscured by excessive muscle artifacts. No subclinical seizure activity was seen. Interictal activity: None Ictal activity: None Impression: This is an abnormal 20-minute portable surface EEG recording secondary to generalized 6 Hz theta slowing seen throughout the recording. No subclinical seizure activity or subclinical status epilepticus was seen. Clinical correlation: The generalized slowing of the background rhythm is consistent with a diffuse encephalopathic process, most likely metabolic in origin. Note: No seizure activity was seen. Physician name/Signature: Heriberto Hou MD chainstitch pants outseamer/Signature: Essie GARAY TCristofer
[2024-04-10 18:00] LABS: Anion Gap 9.2 (5-19); Potassium 3.2 mmol/L (3.5-5.1)
--- NOTE | 2024-04-10 18:45 | PC.NURSE ---
Son gave permission to talk to daughter Ciara Pinon [phone]
[2024-04-10] MEDS: lacosamide 200 MG in sodium chloride 0.9% 50 ML 120 MG IV (20:49)
[2024-04-11] VITALS (218 sets, daily range): BP systolic 105–179; BP diastolic 71–99; PULSE 58–108; RESP 8–28; TEMP 36.9–37; O2SAT 91–100
[2024-04-11 00:15] LABS: Anion Gap 10.7 (5-19); Blood Urea Nitrogen 15 mg/dL (6-20); Calcium 9.1 mg/dL (8.5-10.5); Carbon Dioxide 18 mmol/L (22-29); Chloride 126 mmol/L (98-107); Creatinine Clr Calc Pharmacy 314.5331; Glomerular Filtration Rate 370.1 mL/min (90-130); Glucose 112 mg/dL (65-115); Osmolality Calculated 316 mOsm/kg (285-295); Sodium 152 mmol/L (136-145)
[2024-04-11 00:18] LABS: Potassium 2.7 mmol/L (3.5-5.1)
[2024-04-11] MEDS: meropenem 1,000 mg SDV 1000 MG IVP ×3 (02:36→18:00)
[2024-04-11] MEDS: orphenadrine 30 mg/mL Inj 2 mL 60 MG IVP ×2 (04:30→15:24)
[2024-04-11 05:10] LABS: Basophils % 0.3 %; Eosinophils # 0.1 10^3/uL (0.0-0.8); Eosinophils % 0.4 %; Hematocrit 29.1 % (36-47); Lymphocytes # 2.1 10^3/uL (0.8-4.8); Lymphocytes % 18.5 %; Mean Corpuscular HGB Conc 30.2 g/dL (30-55); Mean Corpuscular Hemoglobin 27.1 pg (27-33); Mean Corpuscular Volume 89.5 fl (85-98); Mean Platelet Volume 9.1 fL (7.4-10.4); Monocytes # 1.3 10^3/uL (0.2-0.9); Monocytes % 11.5 %; Neutrophils # 7.83 10^3/uL (1.8-7.7); Neutrophils % 68.8 %; Nucleated Red Blood Cells % 0 %; Platelet Count 542 10^3/cmm (157-399); Red Blood Count 3.25 10^6/uL (3.85-5.65); Red Cell Distribution Width 18.6 % (12.1-15.1); White Blood Count 11.38 10^3/uL (3.29-11.43)
[2024-04-11 05:33] LABS: Alanine Aminotransferase 14 U/L (0-33); Albumin Level 2.7 g/dL (3.5-5.2); Alkaline Phosphatase 108 U/L (35-105); Anion Gap 10.6 (5-19); Aspartate Amino Transferase 19 U/L (0-32); Blood Urea Nitrogen 15 mg/dL (6-20); Calcium 8.9 mg/dL (8.5-10.5); Carbon Dioxide 19 mmol/L (22-29); Chloride 125 mmol/L (98-107); Creatinine Clr Calc Pharmacy 314.5331; Globulin 4.3 g/dL (1.3-4.6); Glomerular Filtration Rate 370.1 mL/min (90-130); Glucose 101 mg/dL (65-115); Osmolality Calculated 315 mOsm/kg (285-295); Sodium 152 mmol/L (136-145); Total Bilirubin 0.2 mg/dL (0.15-1.2)
[2024-04-11 05:44] LABS: Potassium 2.6 mmol/L (3.5-5.1)
--- NOTE | 2024-04-11 05:47 | PC.NURSE ---
Patient K+ 2.7 at midnight draw. IV D5 with 20 mEq K+ running at 125 ml/hr. Dr. Umanzor made aware, no new orders. K+ 2.6 at AM blood draw, expected result and Dr. Umanzor aware. No new orders.
[2024-04-11] MEDS: lacosamide 200 MG in sodium chloride 0.9% 50 ML 120 MG IV ×2 (08:19→20:00)
--- NOTE | 2024-04-11 08:22 | P.PN_ITS ---
Subjective 2 Subjective: History of present illness: Teresa Moraes is a 54 year old female with a history of intractable epilepsy treated with Vimpat, Keppra and Neurontin. The patient also has a history of multiple sclerosis with lower extremity paralysis. The patient resides in a care home facility and was reported to be able to feed herself and hold conversations. The patient was admitted with decreased level consciousness with urosepsis and acidosis. Following correction of the patient's metabolic abnormalities the patient mental status has not improved. Patient reported to lie in bed moaning with her jaws clenched with inability to open her mouth passively. Noncontrast head CT 04/04/2024 revealed the following: There is global parenchymal volume loss. Periventricular white matter hypoattenuation is nonspecific but most likely due to small vessel disease. No evidence of acute territorial infarct or cerebral edema. No mass effect or midline shift. Noncontrast head CT 04/09/2024 revealed the following: IMPRESSION: 1. No evidence of acute intracranial pr ocess. 2. Mild to moderately scattered white m atter hypodensities. Differential considerations include chronic microvascular ischemic change, demyelinating disease, or gliosis from infectious/inflammatory source. Metabolic lab revealed improving acidosis with hypernatremia and hypokalemia. In view of the patient's history of seizures and multiple sclerosis and decreased level consciousness a neurology consult was obtained. The patient had bedside EEG performed on 04/10/2024. This study revealed generalized slowing of the EEG background rhythm associated with excessive muscle artifact secondary to the patient clenching her teeth but no subclinical seizure activity was seen. EEG background consistent with a diffuse encephalopathic process most likely metabolic in origin. On the morning of 04/11/2024 patient mental status somewhat improved with patient moving her head spontaneously and opening her mouth slightly spontaneously but still resisting mouth opening. There was no report of any seizure activity during the night on 04/10/2024. Drug allergies: No known drug allergies Current home medications: Lacosamide (Vimpat) 200 mg p.o. twice daily Keppra 500 mg p.o. twice daily Keppra 1500 mg p.o. twice daily Melatonin 5 mg p.o. nightly Hiprex 1 g p.o. 4 times daily Omeprazole 4 mg p.o. every 4 hours as needed for nausea vomit MiraLAX Potassium chloride 20 mEq twice daily Tramadol 50 mg p.o. every 4 hours as needed for pain Effexor XR 150 mg p.o. day Loratadine 10 mg p.o. daily Neurontin 300 mg p.o. 3 times daily Guaifenesin 200 mg per 5 mL 500 mg every 4 hours as needed Baclofen 40 mg p.o. nightly Baclofen 20 mg p.o. twice daily Past medical history: Intractable epilepsy Multiple sclerosis associated with lower extremity paralysis and nonambulatory Decubitus ulcers Sepsis Hypotension Cholecystectomy Urostomy Normocytic anemia Neurogenic bladder Small bowel obstruction Urinary tract infection Depression Colitis Constipation Gallstone pancreatitis Decubitus ulcer right foot Decubitus ulcer right heel Partial small bowel obstruction Hydronephrosis of the right kidney Struvite kidney stones History of nicotine dependence Habits: Unknown Social history: The patient resides in a care home Family history: Unable to obtain Review of Systems General: Reports: ROS unobt ainable due to med ical condition Vitals/I&O/Wt Last Vital Signs Temp 98.6 F 04/11/24 02:20 Pulse 78 04/11/24 06:05 Resp 19 H 04/11/24 06:05 BP 160/89 04/11/24 06:05 Pulse Ox 98 04/11/24 06:05 O2 Del Method Room Air 04/10/24 10:09 O2 Flow Rate 1 04/09/24 11:50 04/10/24 04/11/24 04/11/24 22:59 06:59 14:59 Intake Total 1175 / 2874.292 100 / 2974.292 1000 / 1000 Output Total 1350 / 1350 900 / 2250 Balance -175 / 1524.292 -800 / 516.446 9360 / 1000 Weight last 48 hrs Weight 137 lb 12.623 oz Weight 137 lb 12.623 oz Weight 143 lb 8.335 oz Physical Exam 2 Narrative: The patient is lying in bed in a supine position patient has lower extremity paralysis with contractures of her lower extremities and heels and ankles lower extremity in a varus deformity. Patient eyes spontaneously opens and then patient closes her eyes. The patient is moving her head spontaneously purposefully but does not follow commands. The patient periodically moan spontaneously. Pupils 4 to 5 mm reactive to light and accommodation. Neck revealed no obvious meningeal signs. Head reveals no obvious signs of trauma. Patient does not follow commands. I was unable to open the patient's mouth secondary to her teeth/jaws being clenched together but the patient has no signs of hyperextension of her trunk. Motor testing revealed no spontaneous movement. Patient did have increased tone in the upper extremities bilaterally which appeared to improved slightly with repeated flexion and extension of her arms. Patient had lower extremity spasticity and tonic contractures of her ankles and feet bilaterally. There was no movement or moaning or grimacing to pain applied to her nailbeds on the lower extremities. Patient did moan with sternal rub. Throat could not be visualized secondary to the patient's clenching her teeth although the patient will open her mouth slightly spontaneously but closes it with attempted passive opening of her mouth.. Lungs revealed no obvious wheezing. Heart regular rhythm and rate. Chest and abdomen reveal surgical scars without obvious sign of infection. Extremities were negative for cyanosis. Data 04/11/24 03:08 04/11/24 03:08 Micro: Microbiology 04/09/24 07:41 Urine Culture - Preliminary Urine,Clean Catch Gram Negative Rods 04/09/24 08:22 Blood Culture - Preliminary Blood NEGATIVE TO DATE 04/09/24 08:17 Blood Culture - Preliminary Blood NEGATIVE TO DATE A&P Assessment and plan (1) Acute metabolic encephalopathy: Impression: 1. Acute metabolic encephalopathy 2. History of seizure disorder assess for subclinical status epilepticus 3. History of multiple sclerosis with lower extremity paralysis (the patient is on no medications for multiple sclerosis) 4. Hypernatremia 5. Hypokalemia 6. Metabolic acidosis, improved Plan: 1. Agree with IV Keppra and IV Vimpat at current dose 2. Recommend obtaining trough Keppra and Vimpat levels on 04/11/2024 3. Consider placing NG tube to resume Neurontin 300 mg 3 times daily 4. Recommend obtaining head MRI without contrast to assess for brainstem stroke 5. Consider obtaining lab for TSH and free T4 and magnesium 6. If head MRI is unremarkable consider obtaining lumbar puncture under fluoroscopy by radiology to rule out ENDOSCOPE TECHNICIAN infection if the patient's mental status does not continue to improve (2) Seizure disorder: Attestations 2 Medical Necessity Statement*: The patient was evaluated by neurology for encephalopathy and history of seizures Coding Level of Care Code 60425 Diagnoses Acute metabolic encephalopathy G93.41 Seizure disorder G40.909
[2024-04-11] MEDS: dextrose 5% + KCl 20 mEq 20 MEQ/1,000 ML BAG 125 MEQ IV ×2 (08:43→18:00)
[2024-04-11] MEDS: pantoprazole 40 mg SDV IVP (08:44)
[2024-04-11] MEDS: potassium chloride premix 100 ML 25 MEQ IV ×2 (09:07→12:59)
[2024-04-11] MEDS: levETIRAcetam 1,500 MG/100 ML PREMIX 400 MG IV ×2 (09:56→23:07)
[2024-04-11] MEDS: enoxaparin 40 mg/0.4 mL Syringe SUBCUT (10:53)
--- NOTE | 2024-04-11 11:18 | P.PN_ITS ---
Documented by User: Stefano Jensen 04/11/24 14:05 Subjective 2 Subjective: Teresa Moraes is a 54 y.o. female admitted in ICU with ongoing altered mental status. Today she acknowledged me with eye opening and verbal effort, although unable to make out any words. She has still not had a bowel movement per nursing despite glycerin suppository. She was visited by Dr. Hou with neurology and had an EEG performed which showed no explanatory findings. Reviewed the documentation from this consultation. Medications: Reviewed: Yes Vitals/I&O/Wt Last Vital Signs Temp 98.6 F 04/11/24 02:20 Pulse 74 04/11/24 10:00 Resp 12 04/11/24 10:00 BP 144/71 04/11/24 10:00 Pulse Ox 98 04/11/24 10:00 O2 Del Method Room Air 04/10/24 10:09 O2 Flow Rate 1 04/09/24 11:50 04/10/24 04/11/24 04/11/24 22:59 06:59 14:59 Intake Total 1175 / 2874.292 100 / 2974.292 1170 / 1170 Output Total 1350 / 1350 900 / 2250 Balance -175 / 1524.292 -800 / 215.164 0370 / 1170 Weight last 48 hrs Weight 137 lb 12.623 oz Weight 137 lb 12.623 oz Physical Exam 2 Narrative: General: Altered mental status. Small attempt at verbal response, but no discernable words. Lower extremity contractures. Opens eyes to verbal stimuli. HEENT: Normocephalic, atraumatic. Cardiovascular: Regular rate and rhythm. No murmur. Lungs: Clear to auscultation bilaterally. Nonlabored breathing. Abdomen: Large midline abdominal incision; does not appear grossly infected. Urostomy in place containing minimal fluid at this time, but appears more clear than yesterday. Extremities: Bilateral feet contracted in plantar flexion with flexion of toes. Pads in place on heels for ulcer prevention. No gross deformity of upper extremities. Unable to cooperate with active motion or strength testing. Psych: Some attempt made at verbal response, but no discernable words understood. Back: Stage 3 decubitus ulceration without evidence of infection. Sepsis: Is patient septic: Yes Focused sepsis exam performed: Yes Date exam was performed: 04/09/24 Time exam was performed: 09:45 Data 04/11/24 03:08 04/11/24 03:08 Micro: Microbiology 04/09/24 07:41 Urine Culture - Preliminary Urine,Clean Catch Gram Negative Rods 04/09/24 08:22 Blood Culture - Preliminary Blood NEGATIVE TO DATE 04/09/24 08:17 Blood Culture - Preliminary Blood NEGATIVE TO DATE A&P Assessment and plan (1) Sepsis: SOFA score of 3. Tachycardia and leukocytosis seem to be improving. Treating for UTI in context of urostomy with ileal conduit. Has history of urine cultures growing pseudomonas, ESBL proteus mirabilis, and enterobacter cloacae. Recently underwent major intra-abdominal surgery and has midline abdominal incision that is not completely healed. Associated with acute encephalopathy, infectious and metabolic. Blood culture negative to date Urine culture grew ESBL proteus mirabilis Continue meropenem and gentamicin (2) UTI (urinary tract infection): Urinalysis reveals findings consistent with infection. Patient has urostomy with ileal conduit. Has history of urine cultures growing pseudomonas, ESBL proteus mirabilis, and enterobacter cloacae. Based on this history and antibiotic susceptibilities, prescribed IV meropenem and gentamicin which we plan to continue at this time. No evidence of obstruction although right collecting system is full Urine culture grew ESBL proteus mirabilis Continue meropenem and gentamicin (3) Presence of urostomy: See above (4) Multiple sclerosis: Long-standing diagnosis of multiple sclerosis. Head CT showed findings likely consistent with MS vs. other etiologies. Evaluation limited by mental status. Inability to take p.o. Has received 2 doses of IV Norflex. Was given 1 dose of IV Ativan without significant response. Restart her baclofen when she is able to tolerate p.o. (5) Seizure disorder: Established history of seizure disorder. Currently does not respond verbally with any discernable words, but does respond to verbal stimulus with eye opening, some body movement, and minor verbal effort. No evidence of convulsions today. Continue IV Lacosamide and Keppra until PO status improves. Keppra blood level elevated. Bedside EEG reported to be negative by neurology. Ordered MRI head. (6) Hypernatremia: Sodium remains elevated. 152 today. Continue KCl/D5W at 125 mL/hr Repeat BMP (7) Hypokalemia: Potassium 2.6 this morning. Continue KCl/D5W at 125 mL/hr. Has also been receiving K-Mike at 25 mL/hr Recheck BMP. (8) Decubitus ulcer: Stage 3. No evidence of current infection. Routine decubitus ulcer care protocol. Plan Acute encephalopathy, monitor for improvement Rather severe metabolic acidosis, with anion gap of 12.7 today. Recheck BMP Glycerin suppository for fecal impaction evidenced on CT. Still no bowel movement. Other medical problems as outlined in past medical history exam DVT prophylaxis: Lovenox Full code. Coding Level of Care Code 52050 Diagnoses Sepsis A41.9 UTI (urinary tract infection) N39.0 Presence of urostomy Z93.6 Multiple sclerosis G35 Seizure disorder G40.909 Hypernatremia E87.0 Hypokalemia E87.6 Decubitus ulcer L89.90 Time Spent (min) 45 Documented by User: Haroon Tellez MD 04/11/24 14:42 Subjective 2 Subjective: Teresa Moraes is a 54 y.o. female admitted in ICU with ongoing altered mental status. Today she acknowledged me with eye opening and verbal effort, although unable to make out any words. She had a small bowel movement yesterday according to nursing. Not much stool in the vault. She was visited by Dr. Hou with neurology and had an EEG performed which showed no explanatory findings. Reviewed the documentation from this consultation. Data 04/11/24 03:08 04/11/24 03:08 A&P Assessment and plan (1) Sepsis: SOFA score of 3. Tachycardia and leukocytosis seem to be improving. Treating for UTI in context of urostomy with ileal conduit. Has history of urine cultures growing pseudomonas, ESBL proteus mirabilis, and enterobacter cloacae. Recently underwent major intra-abdominal surgery and has midline abdominal incision that is not completely healed. Associated with acute encephalopathy, infectious and metabolic. Blood culture negative to date Urine culture grew ESBL proteus mirabilis sensitive to gentamicin Continue meropenem and gentamicin Associated with acute encephalopathy. She appears to be slowly improving. This could be multifactorial. No evidence of subclinical seizures. May need NG for initiation of Neurontin. (2) UTI (urinary tract infection): (3) Presence of urostomy: (4) Multiple sclerosis: Long-standing diagnosis of multiple sclerosis. Head CT showed findings likely consistent with MS vs. other etiologies. Evaluation limited by mental status. Inability to take p.o. Has received 2 doses of IV Norflex. Was given 1 dose of IV Ativan without significant response. Restart her baclofen when she is able to tolerate p.o. currently receiving IV muscle relaxant, 60 mg of Norflex every 12 hours (5) Seizure disorder: Established history of seizure disorder. Currently does not respond verbally with any discernable words, but does respond to verbal stimulus with eye opening, some body movement, and minor verbal effort. No evidence of convulsions today. Continue IV Lacosamide and Keppra until PO status improves. Keppra blood level elevated. Appreciate neurology consult. Repeat Keppra and lacosamide levels tomorrow Bedside EEG reported to be negative by neurology. Patient improving. If does not get back to baseline will order MRI tomorrow (6) Hypernatremia: (7) Hypokalemia: Potassium 2.6 this morning. Continue KCl/D5W at 125 mL/hr. 80 mEq of potassium has been ordered IV over 8 hours Recheck BMP 1600. (8) Decubitus ulcer: Plan Acute encephalopathy, monitor for improvement Rather severe metabolic acidosis, anion gap is significantly improved Constipation. Only small bowel movement yesterday. Fleets enema today. Other medical problems as outlined in past medical history exam DVT prophylaxis: Lovenox Full code. Attestations 2 Medical Necessity Statement*: Will need continued hospital stay for correction of sodium, addressing constipation, addressing continued encephalopathy which is slow to improve Diagnoses Sepsis A41.9 UTI (urinary tract infection) N39.0 Presence of urostomy Z93.6 Multiple sclerosis G35 Seizure disorder G40.909 Hypernatremia E87.0 Hypokalemia E87.6 Decubitus ulcer L89.90 Time Spent (min) 45
[2024-04-11] MEDS: GENTAMICIN IV (11:54)
[2024-04-11] MEDS: SODIUM CHLORIDE 0.9% IV (11:54)
[2024-04-11] MEDS: Fleet Enema 133 mL Enema PR (15:02)
[2024-04-11 17:37] LABS: Anion Gap 11.6 (5-19); Blood Urea Nitrogen 10 mg/dL (6-20); Calcium 9.2 mg/dL (8.5-10.5); Carbon Dioxide 19 mmol/L (22-29); Chloride 119 mmol/L (98-107); Creatinine Clr Calc Pharmacy 314.5331; Glomerular Filtration Rate 370.1 mL/min (90-130); Glucose 96 mg/dL (65-115); Osmolality Calculated 301 mOsm/kg (285-295); Potassium 3.6 mmol/L (3.5-5.1); Sodium 146 mmol/L (136-145)
[2024-04-11 20:39] LABS: Lacosamide (Vimpat) 8.2 mcg/mL
[2024-04-12] VITALS (92 sets, daily range): BP systolic 98–170; BP diastolic 64–114; PULSE 61–94; RESP 12–27; TEMP 36.1–37.2; O2SAT 95–100
[2024-04-12] MEDS: dextrose 5% + KCl 20 mEq 20 MEQ/1,000 ML BAG 125 MEQ IV ×3 (02:08→18:32)
[2024-04-12] MEDS: orphenadrine 30 mg/mL Inj 2 mL 60 MG IVP (04:00)
[2024-04-12] MEDS: meropenem 1,000 mg SDV 1000 MG IVP ×3 (04:00→18:20)
[2024-04-12 04:11] LABS: Basophils % 0.2 %; Eosinophils # 0.2 10^3/uL (0.0-0.8); Eosinophils % 1.8 %; Hematocrit 27.8 % (36-47); Lymphocytes % 19.1 %; Mean Corpuscular HGB Conc 31.3 g/dL (30-55); Mean Corpuscular Hemoglobin 27.6 pg (27-33); Mean Corpuscular Volume 88.3 fl (85-98); Mean Platelet Volume 8.7 fL (7.4-10.4); Monocytes # 1.1 10^3/uL (0.2-0.9); Monocytes % 10.3 %; Neutrophils # 6.98 10^3/uL (1.8-7.7); Neutrophils % 68.3 %; Nucleated Red Blood Cells % 0 %; Platelet Count 452 10^3/cmm (157-399); Red Blood Count 3.15 10^6/uL (3.85-5.65); Red Cell Distribution Width 18.3 % (12.1-15.1); White Blood Count 10.21 10^3/uL (3.29-11.43)
[2024-04-12 04:33] LABS: Alanine Aminotransferase 19 U/L (0-33); Albumin Level 2.7 g/dL (3.5-5.2); Alkaline Phosphatase 111 U/L (35-105); Anion Gap 11.8 (5-19); Aspartate Amino Transferase 28 U/L (0-32); Blood Urea Nitrogen 9 mg/dL (6-20); Calcium 8.6 mg/dL (8.5-10.5); Carbon Dioxide 19 mmol/L (22-29); Chloride 117 mmol/L (98-107); Creatinine Clr Calc Pharmacy 314.5331; Globulin 3.9 g/dL (1.3-4.6); Glomerular Filtration Rate 370.1 mL/min (90-130); Glucose 95 mg/dL (65-115); Magnesium 1.7 mg/dL (1.7-2.3); Osmolality Calculated 298 mOsm/kg (285-295); Sodium 145 mmol/L (136-145); Total Bilirubin 0.3 mg/dL (0.15-1.2); Total Protein 6.6 g/dL (6.6-8.7)
[2024-04-12 04:38] LABS: Potassium 2.8 mmol/L (3.5-5.1)
[2024-04-12] MEDS: potassium chloride premix 100 ML 25 MEQ IV ×2 (07:49→11:17)
--- NOTE | 2024-04-12 08:31 | P.PN_ITS ---
Documented by User: Stefano Jensen 04/12/24 08:54 Subjective 2 Subjective: Teresa Moraes is a 54 y.o. female admitted in the ICU with altered mental status. She is much more alert today. Before, she only made minimal response when addressed, but today she is able to maintain eye contact, makes simple comprehensible verbal responses, and follows requests when asked to move body parts. She has still not taken anything PO. No notable overnight events. Medications: Reviewed: Yes Vitals/I&O/Wt Last Vital Signs Temp 97.0 F L 04/12/24 04:00 Pulse 73 04/12/24 08:23 Resp 24 H 04/12/24 06:20 BP 135/76 04/12/24 06:20 Pulse Ox 95 04/12/24 08:23 O2 Del Method Room Air 04/12/24 08:23 O2 Flow Rate 1 04/09/24 11:50 04/11/24 04/12/24 04/12/24 22:59 06:59 14:59 Intake Total 1100 / 2478.042 1170 / 3648.042 0 / 0 Output Total 1325 / 1325 1750 / 3075 Balance -225 / 1153.042 -580 / 573.042 0 / 0 Weight last 48 hrs Weight 137 lb 12.623 oz Weight 137 lb 12.623 oz Physical Exam 2 Narrative: General: Altered mental status. Maintains eye contact. Simple discernible verbal responses. Lower extremity contractures. HEENT: Normocephalic, atraumatic. Cardiovascular: Regular rate and rhythm. No murmur. Lungs: Clear to auscultation bilaterally. Nonlabored breathing. Abdomen: Large midline abdominal incision; does not appear grossly infected. Urostomy in place containing small amount of fluid at this time and appears clear yellow with some bolanos fibrinous material. Extremities: Bilateral feet contracted in plantar flexion with flexion of toes. Pads in place on heels for ulcer prevention. No gross deformity of upper extremities. Unable to cooperate with active motion or strength testing. Psych: Simple verbal responses with discernible words. Back: Stage 3 decubitus ulceration without evidence of infection. Sepsis: Is patient septic: Yes Focused sepsis exam performed: Yes Date exam was performed: 04/09/24 Time exam was performed: 09:45 Data 04/12/24 03:52 04/12/24 03:52 Micro: Microbiology 04/09/24 07:41 Urine Culture - Final Urine,Clean Catch Proteus mirabilis esbl A&P Assessment and plan (1) Sepsis: SOFA score of 3. Tachycardia and leukocytosis seem to be improving. Treating for UTI in context of urostomy with ileal conduit. Has history of urine cultures growing pseudomonas, ESBL proteus mirabilis, and enterobacter cloacae. Recently underwent major intra-abdominal surgery and has midline abdominal incision that is not completely healed. Associated with acute encephalopathy, infectious and metabolic. Blood culture negative to date Urine culture grew ESBL proteus mirabilis sensitive to gentamicin Continue meropenem and gentamicin Associated with acute encephalopathy. She appears to be slowly improving. This could be multifactorial. No evidence of subclinical seizures. May need NG for initiation of Neurontin, but with mental status progress today, will consult speech therapy with hopes of advancing to PO. PICC line ordered for antibiotic administration (2) UTI (urinary tract infection): Urinalysis reveals findings consistent with infection. Patient has urostomy with ileal conduit. Has history of urine cultures growing pseudomonas, ESBL proteus mirabilis, and enterobacter cloacae. Based on this history and antibiotic susceptibilities, prescribed IV meropenem and gentamicin which we plan to continue at this time. No evidence of obstruction although right collecting system is full Urine culture grew ESBL proteus mirabilis Urine in shukla bag continues to appear less turbid Continue meropenem and gentamicin (3) Presence of urostomy: See above (4) Multiple sclerosis: Long-standing diagnosis of multiple sclerosis. Head CT showed findings likely consistent with MS vs. other etiologies. Evaluation limited by mental status. Currently unable to take p.o. but will consult speech therapy No significant response to Ativan Restart her baclofen when she is able to tolerate p.o. currently receiving IV muscle relaxant, 60 mg of Norflex every 12 hours (5) Seizure disorder: Established history of seizure disorder. Currently responding verbally with simple responses containing mostly discernable words. No evidence of convulsions today. Continue IV Lacosamide and Keppra until PO status improves. Appreciate neurology consult. Bedside EEG reported to be negative. Keppra blood level elevated. Repeat Keppra and lacosamide levels pending. Will defer MRI as patient continues to improve (6) Hypernatremia: Sodium is 145 today. Continue KCl/D5W at 125 mL/hr Repeat BMP (7) Hypokalemia: Potassium 2.8 this morning. Did have one level of 3.6 yesterday. Continue KCl/D5W at 125 mL/hr. 80 mEq of potassium has been ordered IV over 8 hours Recheck BMP (8) Decubitus ulcer: Stage 3. No evidence of current infection. Routine decubitus ulcer care protocol. Plan Acute encephalopathy, improving Rather severe metabolic acidosis, anion gap is significantly improved Constipation. Only small bowel movements reported. Has received glycerin suppository and fleet enema. PICC line placement Speech therapy evaluation Other medical problems as outlined in past medical history exam DVT prophylaxis: Lovenox Full code. Coding Level of Care Code 03891 Diagnoses Sepsis A41.9 UTI (urinary tract infection) N39.0 Presence of urostomy Z93.6 Multiple sclerosis G35 Seizure disorder G40.909 Hypernatremia E87.0 Hypokalemia E87.6 Decubitus ulcer L89.90 Time Spent (min) 25 Documented by User: Haroon Tellez MD 04/12/24 09:22 Data 04/12/24 03:52 04/12/24 03:52 A&P Assessment and plan (1) Sepsis: SOFA score of 3. Tachycardia and leukocytosis seem to be improving. Treating for UTI in context of urostomy with ileal conduit. Has history of urine cultures growing pseudomonas, ESBL proteus mirabilis, and enterobacter cloacae. Recently underwent major intra-abdominal surgery and has midline abdominal incision that is not completely healed. Associated with acute encephalopathy, infectious and metabolic. Blood culture negative to date Planning on at least 2 weeks of IV antibiotics on discharge. Place PICC. Urine culture grew ESBL proteus mirabilis sensitive to gentamicin Continue meropenem and gentamicin Associated with acute encephalopathy. She appears to be slowly improving. This could be multifactorial. No evidence of subclinical seizures. May need NG for initiation of Neurontin, but with mental status progress today, will consult speech therapy with hopes of advancing to PO. PICC line ordered for antibiotic administration (2) UTI (urinary tract infection): (3) Presence of urostomy: (4) Multiple sclerosis: (5) Seizure disorder: Established history of seizure disorder. Currently responding verbally with simple responses containing mostly discernable words. No evidence of convulsions today. Continue IV Lacosamide and Keppra until PO status improves. Appreciate neurology consult. Bedside EEG reported to be negative. Keppra blood level elevated. Repeat Keppra and lacosamide levels pending. Will defer MRI as patient continues to improve Restart Neurontin when able to take p.o. (6) Hypernatremia: (7) Hypokalemia: Potassium 2.8 this morning. Did have one level of 3.6 yesterday. D5W reduced to 100 cc an hour. Continue potassium in this. 80 mEq of potassium has been ordered IV over 8 hours Recheck BMP (8) Decubitus ulcer: Plan Acute encephalopathy, improving Rather severe metabolic acidosis, anion gap is significantly improved Constipation. Only small bowel movements reported. Has received glycerin suppository and fleet enema. PICC line placement Speech therapy evaluation Other medical problems as outlined in past medical history exam DVT prophylaxis: Lovenox Full code. Likely transfer out of ICU this afternoon. Attestations 2 Medical Necessity Statement*: Needs continued hospital stay secondary to sepsis, with acute encephalopathy which is now improving Diagnoses Sepsis A41.9 UTI (urinary tract infection) N39.0 Presence of urostomy Z93.6 Multiple sclerosis G35 Seizure disorder G40.909 Hypernatremia E87.0 Hypokalemia E87.6 Decubitus ulcer L89.90 Time Spent (min) 25
[2024-04-12] MEDS: pantoprazole 40 mg SDV IVP (08:54)
[2024-04-12] MEDS: lacosamide 200 MG in sodium chloride 0.9% 50 ML 120 MG IV (09:06)
[2024-04-12] MEDS: levETIRAcetam 1,500 MG/100 ML PREMIX 400 MG IV (09:57)
--- NOTE | 2024-04-12 10:08 | XR_ITS ---
WS: [id number] XR chest 1V portable [id number] REASON FOR EXAM: Post PICC insertion FINDINGS: Right arm PICC line placement. The tip of the PICC line is at the mid to lower SVC. 2 cm advancement was recommended to place the tip closer to the cavoatrial junction in a more optimal position for use . Catheter position and repositioning instructions discussed with the chief technologist at 11:05 a.m. XR/XR chest 1V portable [id number] IMPRESSION: Right arm PICC line placement as above.
[2024-04-12] MEDS: enoxaparin 40 mg/0.4 mL Syringe SUBCUT (11:17)
--- NOTE | 2024-04-12 11:31 | PICC.NOTE ---
Double lumen PICC placed to right brachial vein. Referred to vascular access nurse for PICC placement due to need for IV antibiotics for 10-14 days. Risks and benefits discussed and informed consent obtained from pt mother, Lima, via phone. Right arm assessed with right basilic vein measuring 3.6 mm, straight, and apparent best choice for placement. Using sterile technique and MST, right basilic vein accessed x 1 stick. Unable to pass guide wire. Site removed. New needle used and right brachial vein accessed x 1 stick. Mid-arm circumference measured 10 cm from right AC 28 cm. Trimmed cath 44 cm with 0 cm external length noted. CXR shows tip in cavoatrial junction, in good position for use per radiologist. Line secured with stat-lock. Insertion site covered with Biopatch and TSM. Report given to bedside nurse, HARINI Hill.
[2024-04-12] MEDS: SODIUM CHLORIDE 0.9% IV (12:15)
[2024-04-12] MEDS: GENTAMICIN IV (12:15)
[2024-04-12] MEDS: glycerin adult supp 1 EACH PR (14:17)
[2024-04-12] MEDS: gabapentin 300 mg Capsule PO ×2 (15:21→21:05)
[2024-04-12] MEDS: levETIRAcetam 500 mg Tablet 1500 MG PO (17:11)
[2024-04-12] MEDS: potassium chloride ER 20 mEq Tablet PO (17:11)
[2024-04-12] MEDS: baclofen 10 mg Tablet 20 MG PO (17:12)
[2024-04-12] MEDS: sennosides-docusate Tablet 2 TAB PO (17:12)
[2024-04-12 20:44] LABS: Blood Urea Nitrogen 7 mg/dL (6-20); Calcium 8.9 mg/dL (8.5-10.5); Carbon Dioxide 21 mmol/L (22-29); Chloride 106 mmol/L (98-107); Creatinine Clr Calc Pharmacy 314.5331; Glomerular Filtration Rate 370.1 mL/min (90-130); Glucose 91 mg/dL (65-115); Osmolality Calculated 278 mOsm/kg (285-295); Sodium 135 mmol/L (136-145)
[2024-04-12] MEDS: baclofen 10 mg Tablet 40 MG PO (21:04)
[2024-04-13] VITALS (12 sets, daily range): BP systolic 101–130; BP diastolic 61–89; PULSE 66–100; RESP 11–20; TEMP 36.4–36.8; O2SAT 94–100; BMI 21.9
[2024-04-13] MEDS: meropenem 1,000 mg SDV 1000 MG IVP (02:25)
[2024-04-13] MEDS: dextrose 5% + KCl 20 mEq 20 MEQ/1,000 ML BAG 125 MEQ IV (02:27)
[2024-04-13 04:47] LABS: Basophils % 0.2 %; Eosinophils # 0.4 10^3/uL (0.0-0.8); Eosinophils % 3.6 %; Hematocrit 28.5 % (36-47); Lymphocytes # 2.4 10^3/uL (0.8-4.8); Lymphocytes % 22.4 %; Mean Corpuscular HGB Conc 31.2 g/dL (30-55); Mean Corpuscular Hemoglobin 27.6 pg (27-33); Mean Corpuscular Volume 88.2 fl (85-98); Mean Platelet Volume 9.4 fL (7.4-10.4); Monocytes # 1.1 10^3/uL (0.2-0.9); Monocytes % 9.9 %; Neutrophils # 6.77 10^3/uL (1.8-7.7); Neutrophils % 63.2 %; Nucleated Red Blood Cells % 0 %; Platelet Count 457 10^3/cmm (157-399); Red Blood Count 3.23 10^6/uL (3.85-5.65); Red Cell Distribution Width 18.4 % (12.1-15.1); White Blood Count 10.71 10^3/uL (3.29-11.43)
[2024-04-13 05:03] LABS: Blood Urea Nitrogen 8 mg/dL (6-20); Carbon Dioxide 20 mmol/L (22-29); Chloride 105 mmol/L (98-107); Creatinine Clr Calc Pharmacy 209.6887; Glomerular Filtration Rate 231.8 mL/min (90-130); Glucose 88 mg/dL (65-115); Magnesium 1.7 mg/dL (1.7-2.3); Osmolality Calculated 274 mOsm/kg (285-295); Sodium 133 mmol/L (136-145)
[2024-04-13 05:07] LABS: Anion Gap 12.3 (5-19); Potassium 4.3 mmol/L (3.5-5.1)
[2024-04-13] MEDS: levETIRAcetam 500 mg Tablet 1500 MG PO ×2 (09:05→18:39)
[2024-04-13] MEDS: pantoprazole 40 mg SDV IVP (09:05)
[2024-04-13] MEDS: baclofen 10 mg Tablet 20 MG PO ×2 (09:05→18:39)
[2024-04-13] MEDS: sennosides-docusate Tablet 2 TAB PO ×2 (09:06→18:40)
[2024-04-13] MEDS: venlafaxine ER (24HR) 150 mg Capsule PO (09:06)
[2024-04-13] MEDS: potassium chloride ER 20 mEq Tablet PO ×2 (09:06→18:39)
[2024-04-13] MEDS: gabapentin 300 mg Capsule PO ×2 (09:06→20:15)
[2024-04-13] MEDS: polyethylene glycol 3350 Pkt 17 gm PO (09:07)
--- NOTE | 2024-04-13 11:49 | PM.DCS ---
Discharge Providers Date of Admission: 04/09/24 09:34 Date of Discharge: April 13, 2024 Attending Provider at Admission: Haroon Tellez MD Attending Provider at Discharge: Haroon Tellez MD Primary Care Provider: Tony Keys MD Diagnoses at Discharge Discharge Diagnosis (1) Sepsis: Status: Acute (2) UTI (urinary tract infection): Status: Acute (3) Presence of urostomy: Status: Acute (4) Multiple sclerosis: Status: Acute (5) Seizure disorder: Status: Acute (6) Hypernatremia: Status: Acute (7) Hypokalemia: Status: Acute (8) Decubitus ulcer: Status: Acute Reason for Visit Reason for Visit: UNRESPONSIVE Hospital Course Hospital Course Patient is a 54-year-old white female with MS and recurrent UTIs with 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 This was associate with acute encephalopathy. She was placed on IV antibiotics consisting of gentamicin and meropenem. She was hydrated. Hypernatremia was treated. CT head was performed demonstrating no acute change. She was very slow to wake up, and neurology was consulted and did an EEG making sure no subclinical seizure/status was occurring. She did receive her seizure medications IV during this time. With continued treatment, reduction of sodium, she came back to her baseline mental status and was able to discharge on April 13. At that time cultures of urine demonstrated ESBL, Proteus, sensitive to Zosyn. She will discharge on 10 more days of Zosyn. Note that she potentially could be resistant to meropenem. Gentamicin is sensitive as well. She was treated for constipation as well and had bowel movements daily at end of hospital stay, no abdominal pain. Physical Exam Narrative: General Exam no distress Neck is supple Cardiovascular regular rate and rhythm Lungs clear Abdomen soft Extremities no cyanosis clubbing or edema Discharge Data Studies Completed and Pending Completed Studies During Hospitalization Category Date Time Status CT abdomen pelvis w con* [id number] Stat Cat Scan 04/09/24 07:[address] head wo con* [id number] Stat Cat Scan 04/09/24 06:55 Completed CXRP [XR chest 1V portable [id number]] Routine Exams 04/12/24 10:08 Completed XR chest 1V portable [id number] Stat Exams 04/09/24 06:55 Completed Pending at discharge Category Date Time Status EEG electroencephalogram Routine Exams 04/10/24 17:59 Ordered Blood Culture Stat Lab 04/09/24 08:22 Results Gentamicin Trough Timed Lab 04/13/24 11:05 Received KEPPRA [Levetiracetam Immunoassy] Routine Lab 04/12/24 03:52 Received Lacosamide (Vimpat) Routine Lab 04/12/24 03:52 Received Radiology Impressions Head CT 04/09/24 06:55 IMPRESSION: 1. No evidence of acute intracranial process. 2. Mild to moderately scattered white matter hypodensities. Differential considerations include chronic microvascular ischemic change, demyelinating disease, or gliosis from infectious/inflammatory source. Abdomen/Pelvis CT 04/09/24 07:14 IMPRESSION: 1. Fecal impaction in the rectum with mild rectal wall thickening. This constellation of findings could represent stercoral colitis. Otherwise no bowel obstruction. 2. Asymmetric fullness of the right collecting system again seen. Nonobstructing bilateral kidney stones are again identified. Chest X-Ray 04/12/24 10:08 IMPRESSION: Right arm PICC line placement as above. Laboratory Results WBC 10.71 10^3/uL (3.29-11.43) 04/13/24 04:05 RBC 3.23 10^6/uL (3.85-5.65) L 04/13/24 04:05 Hgb 8.90 g/dL (11.27-16.99) L 04/13/24 04:05 Hct 28.5 % (36-47) L 04/13/24 04:05 MCV 88.2 fl (85-98) 04/13/24 04:05 MCH 27.6 pg (27-33) 04/13/24 04:05 MCHC 31.2 g/dL (30-55) 04/13/24 04:05 RDW 18.4 % (12.1-15.1) H 04/13/24 04:05 Plt Count 457 10^3/cmm (157-399) H 04/13/24 04:05 MPV 9.4 fL (7.4-10.4) 04/13/24 04:05 Neut % (Auto) 63.2 % 04/13/24 04:05 Lymph % (Auto) 22.4 % 04/13/24 04:05 [place] % (Auto) 9.9 % 04/13/24 04:05 Eos % (Auto) 3.6 % 04/13/24 04:05 Baso % (Auto) 0.2 % 04/13/24 04:05 Neut # (Auto) 6.77 10^3/uL (1.8-7.7) 04/13/24 04:05 Lymph # (Auto) 2.4 10^3/uL (0.8-4.8) 04/13/24 04:05 [place] # (Auto) 1.1 10^3/uL (0.2-0.9) H 04/13/24 04:05 Eos # (Auto) 0.4 10^3/uL (0.0-0.8) 04/13/24 04:05 Baso # (Auto) 0.0 10^3/uL (0.0-0.1) 04/13/24 04:05 Nucleated RBC % (auto) 0 % 04/13/24 04:05 Nucleated RBCs # 0.0 /100WBC 04/13/24 04:05 Specimen Type Arterial 04/09/24 16:20 Sample Site Brachial, left 04/09/24 16:20 ABG pH 7.19 (7.35-7.45) L 04/09/24 16:20 ABG pCO2 22.1 mmHg (35-45) L 04/09/24 16:20 ABG pO2 108.0 mmHg (80.0-100.0) H 04/09/24 16:20 ABG PO2/FiO2 Ratio 514 04/09/24 16:20 ABG HCO3 8.4 mmol/L (22-26) L 04/09/24 16:20 ABG O2 Saturation 98.0 04/09/24 16:20 ABG Base Excess -18.0 mmol/L (-2.0-2.0) L 04/09/24 16:20 Andrews Test N/a 04/09/24 16:20 A-a O2 Gradient 1.8 mmHg (5-10) L 04/09/24 16:20 Hematocrit 35.4 % (37-47) L 04/09/24 16:20 Hgb O2 Saturation 96.0 % (95-100) 04/09/24 16:20 Carboxyhemoglobin 0.7 %THgb (0.4-20.1) 04/09/24 16:20 Methemoglobin 1.3 % (0.4-1.5) 04/09/24 16:20 Total Hemoglobin 11.6 g/dL (12-16) L 04/09/24 16:20 Sodium 161.0 mmol/L (131-143) H 04/09/24 16:20 Potassium 2.9 mmol/L (3.5-5.0) L 04/09/24 16:20 Glucose 100.0 mg/dL (70-115) 04/09/24 16:20 Ionized Calcium 1.5 mmol/L (1.1-1.4) H 04/09/24 16:20 O2 Delivery Device Room air 04/09/24 16:20 O2 Liters/Min 2.0 % 04/09/24 07:28 FiO2 21.0 % 04/09/24 16:20 Director Dental Services ID Gd 04/09/24 16:20 Sodium 133 mmol/L (136-145) L 04/13/24 04:05 Potassium 4.3 mmol/L (3.5-5.1) 04/13/24 04:05 Chloride 105 mmol/L (98-107) 04/13/24 04:05 Carbon Dioxide 20 mmol/L (22-29) L 04/13/24 04:05 Anion Gap 12.3 (5-19) 04/13/24 04:05 BUN 8 mg/dL (6-20) 04/13/24 04:05 Creatinine 0.3 mg/dL (0.5-0.9) L 04/13/24 04:05 GFR Calculation 231.8 mL/min (90-130) H 04/13/24 04:05 Glucose 88 mg/dL (65-115) 04/13/24 04:05 Calculated Osmolality 274 mOsm/kg (285-295) L 04/13/24 04:05 Lactic Acid 1.8 mmol/L (0.5-2.2) 04/09/24 08:17 Calcium 9.0 mg/dL (8.5-10.5) 04/13/24 04:05 Magnesium 1.7 mg/dL (1.7-2.3) 04/13/24 04:05 Total Bilirubin 0.3 mg/dL (0.15-1.2) 04/12/24 03:52 AST 28 U/L (0-32) 04/12/24 03:52 ALT 19 U/L (0-33) 04/12/24 03:52 Alkaline Phosphatase 111 U/L (35-105) H 04/12/24 03:52 Ammonia 66 umol/L (11-51) H 04/09/24 08:17 Creatine Kinase 99 U/L (26-192) 04/09/24 15:25 Total Protein 6.6 g/dL (6.6-8.7) 04/12/24 03:52 Albumin 2.7 g/dL (3.5-5.2) L 04/12/24 03:52 Globulin 3.9 g/dL (1.3-4.6) 04/12/24 03:52 Urine Color Other (Yellow) A 04/09/24 07:41 Urine Appearance Turbid (CLEAR) A 04/09/24 07:41 Urine pH TNP 04/09/24 07:41 Ur Specific [place] TNP 04/09/24 07:41 Urine Protein TNP 04/09/24 07:41 Urine Glucose (UA) TNP 04/09/24 07:41 Urine Ketones TNP 04/09/24 07:41 Urine Blood TNP 04/09/24 07:41 Urine Nitrate TNP 04/09/24 07:41 Urine Bilirubin TNP 04/09/24 07:41 Urine Urobilinogen TNP 04/09/24 07:41 Ur Leukocyte Esterase TNP 04/09/24 07:41 Urine RBC >100 /hpf (0-2) H 04/09/24 07:41 Urine WBC >100 /hpf (0-5) H 04/09/24 07:41 Ur Squamous Epith Cells 0-4 /hpf (0-5) H 04/09/24 07:41 Amorphous Sediment Not Reportable 04/09/24 07:41 Urine Bacteria 4+ /hpf (NONE) H 04/09/24 07:41 Gentamicin Trough 0.7 ug/mL (0.0-8.0) 04/10/24 11:08 Random Gentamicin 6.9 (4-10) 04/09/24 21:20 Salicylates < 0.3 mg/dL (3-10) L 04/09/24 08:17 Urine Opiates Screen Negative ng/mL (Negative) 04/09/24 07:41 Acetaminophen < 5.0 ug/mL (10-30) L 04/09/24 08:17 Ur Barbiturates Screen Negative ng/mL (Negative) 04/09/24 07:41 Lacosamide Level 8.2 mcg/mL 04/09/24 08:17 Levetiracetam 60.6 mcg/mL (6.0-46.0) H 04/09/24 08:17 Ur Phencyclidine Scrn Negative ng/mL (Negative) 04/09/24 07:41 Ur Amphetamines Screen Negative ng/mL (Negative) 04/09/24 07:41 U Benzodiazepines Scrn Negative ng/mL (Negative) 04/09/24 07:41 Urine Cocaine Screen Negative ng/mL (Negative) 04/09/24 07:41 U Marijuana (THC) Screen Negative ng/mL (Negative) 04/09/24 07:41 Ethyl Alcohol < 10 mg/dL (0-10) 04/09/24 08:17 Coronavirus (PCR) Negative (Negative) 04/09/24 07:41 Influenza A (PCR) Negative (Negative) 04/09/24 07:41 Influenza Type B (PCR) Negative (Negative) 04/09/24 07:41 RSV (PCR) Negative (Negative) 04/09/24 07:41 Vitals Last Vital Signs Temp 98.0 F 04/13/24 07:48 Pulse 66 04/13/24 07:48 Resp 17 04/13/24 07:48 BP 106/72 04/13/24 07:48 Pulse Ox 98 04/13/24 07:48 O2 Del Method Room Air 04/13/24 07:48 O2 Flow Rate 1 04/09/24 11:50 Discharge Plan Discharge Patient Disposition: Xfer SNF Condition: Stable Prescriptions: New sennosides-docusate sodium [Stool Softener-Laxative] 8.6-50 mg Tablet 2 tab PO BID Qty: 120 0RF Continued potassium chloride 20 mEq tablet extended release 20 meq PO BID@ polyethylene glycol 3350 [Miralax] 17 gram/dose powder 4 g PO DAILY fluticasone propion-salmeterol [Advair Diskus] 500-50 mcg/dose blister with device 1 inh inhalation BID Lactobacillus acidophilus 1 billion cell capsule 1,000 mmu cells PO BID gabapentin 300 mg capsule 300 mg PO TID magnesium hydroxide 400 mg/5 mL suspension 30 ml PO BID PRN (Reason: Constipation) levetiracetam [Keppra] 1,000 mg tablet 1,500 mg PO BID Rx Instructions: along with 500mg tablet to = 1500mg guaifenesin 200 mg/5 mL liquid 500 mg PO Q4H PRN (Reason: Cough) baclofen 20 mg tablet 40 mg PO BEDTIME nystatin 100,000 unit/gram cream 1 applic topical QAM PRN (Reason: SCALY AREA) loratadine 10 mg tablet 10 mg PO DAILY@08 Fleet Enema 19-7 gram/118 mL Enema 118 ml MS DAILY PRN (Reason: Constipation) albuterol sulfate [Ventolin HFA] 90 mcg/actuation HFA aerosol inhaler 1 inh INHALATION Q8H PRN (Reason: Shortness Of Breath) ondansetron HCl 4 mg tablet 4 mg PO Q4H PRN (Reason: Nausea And Vomiting) omeprazole 20 mg capsule,delayed release(DR/EC) 20 mg PO DAILY venlafaxine [Effexor XR] 150 mg Capsule,Extended Release 24hr 150 mg PO DAILY methenamine hippurate [Hiprex] 1 gram Tablet 1 g PO QID lacosamide [Vimpat] 200 mg Tablet 200 mg PO BID simethicone 80 mg Tablet,Chewable 80 mg PO QID PRN (Reason: Gastrointestinal Spasms Or Cramping) melatonin 5 mg Tablet 5 mg PO BEDTIME baclofen 20 mg tablet 20 mg PO BID Rx Instructions: AM and NOON acetaminophen 325 mg Tablet 650 mg PO Q6H levetiracetam 500 mg tablet 500 mg PO BID Rx Instructions: along with 1000mg tablet to = 1500mg Santyl 250 unit/gram Ointment See Rx Instructions .ROUTE .COMPLEX Rx Instructions: 1 applic topically to sacrum every day and evening shift for pressure ulcer. Discontinued tramadol 50 mg tablet 50 mg PO Q4H PRN (Reason: Pain) ceftriaxone 1 gram Recon Soln 1 g IV QPM Discharge Orders: Discharge Order (Routine); Ordered 04/13/24 Ordered By: Haroon Tellez Referrals: Tony Keys MD [Primary Care Provider] - 4-7 days Discharge Diet: Usual diet Discharge Activity: Increase activity as tolerated Patient Instructions: Altered Mental Status (ED) Activity Restrictions/Additional Instructions: Take all medicine as prescribed CBC and BMP on Tuesday Return for concerns Please arrange follow up with Urology. Discharge Attestations Time Spent in Discharge Care*: greater than 30 min Status at Discharge: Cognitive status at discharge: cognitively intact, Behavioral status at discharge: cooperative, Quality Metrics Clinical Quality Measures [ No reported AMI, CVA or VTE this stay] Coding Level of Care Code 93150 Total time (in minutes) for Discharge: 34 Diagnoses Sepsis A41.9 UTI (urinary tract infection) N39.0 Presence of urostomy Z93.6 Multiple sclerosis G35 Seizure disorder G40.909 Hypernatremia E87.0 Hypokalemia E87.6 Decubitus ulcer L89.90
[2024-04-13 12:05] LABS: Gentamicin Trough 0.6 ug/mL (0.0-8.0)
[2024-04-13] MEDS: piperacillin-tazobactam 3.375 GM in sodium chloride 0.9% (plus) 50 ML IV ×2 (12:13→23:42)
[2024-04-13] MEDS: enoxaparin 40 mg/0.4 mL Syringe SUBCUT (12:13)
[2024-04-13] MEDS: baclofen 10 mg Tablet 40 MG PO (20:15)
--- NOTE | 2024-04-13 22:31 | PC.NURSE ---
Discharge Unable to discharge patient at this time due to antibiotics being unavailable at [facility]. This nurse spoke with HARINI Mckeon from [facility] who states [facility] and that their pharmacy does not deliver on Saturdays. Linda states that she has spoken with her D.O.N. who will address the issue tomorrow. Dr. Umanzor notified by AUGUSTINE Mcpherson for continuation of orders here and cancellation of discharge.
[2024-04-14] VITALS: BP 114/80; PULSE 86; RESP 17; TEMP 36.7; O2SAT 96
[2024-04-14 04:00] VITALS: BP 126/88; PULSE 88; RESP 18; TEMP 36.5; O2SAT 96
[2024-04-14 05:59] LABS: Levetiracetam Immunoassy 65.1 mcg/mL (6.0-46.0)
[2024-04-14] MEDS: piperacillin-tazobactam 3.375 GM in sodium chloride 0.9% (plus) 50 ML IV (06:44)
[2024-04-14] MEDS: polyethylene glycol 3350 Pkt 17 gm PO (07:51)
[2024-04-14] MEDS: pantoprazole 40 mg SDV IVP (07:51)
[2024-04-14] MEDS: levETIRAcetam 500 mg Tablet 1500 MG PO (07:51)
[2024-04-14] MEDS: baclofen 10 mg Tablet 20 MG PO (07:52)
[2024-04-14] MEDS: venlafaxine ER (24HR) 150 mg Capsule PO (07:52)
[2024-04-14] MEDS: gabapentin 300 mg Capsule PO (07:52)
[2024-04-14] MEDS: sennosides-docusate Tablet 2 TAB PO (07:52)
[2024-04-14] MEDS: potassium chloride ER 20 mEq Tablet PO (07:52)
[2024-04-14 08:00] VITALS: BP 137/94; PULSE 97; RESP 14; TEMP 36.8; O2SAT 95
--- NOTE | 2024-04-14 10:26 | PC.NURSE ---
Patient did not leave last night due to [facility] not having patient's IV antibiotics. [facility] this morning and they stated they did have enough antibiotics now for the patient. [facility]TM contacted and ride set up for patient to discharge soon.
[2024-04-14 11:58] VITALS: BP 127/86; PULSE 97; RESP 16; TEMP 36.7; O2SAT 96
[2024-04-14] MEDS: enoxaparin 40 mg/0.4 mL Syringe SUBCUT (12:10)
[2024-04-14 15:09] VITALS: BP 127/86; PULSE 97; O2SAT 96
--- NOTE | 2024-04-14 16:17 | PM.DCS ---
Discharge Providers Date of Admission: 04/09/24 09:34 Date of Discharge: April 14, 2024 Attending Provider at Admission: Haroon Tellez MD Attending Provider at Discharge: Kami Dave MD Primary Care Provider: Tony Keys MD Diagnoses at Discharge Discharge Diagnosis (1) Sepsis: Status: Acute (2) UTI (urinary tract infection): Status: Acute (3) Presence of urostomy: Status: Acute (4) Multiple sclerosis: Status: Acute (5) Seizure disorder: Status: Acute (6) Hypernatremia: Status: Acute (7) Hypokalemia: Status: Acute (8) Decubitus ulcer: Status: Acute Reason for Visit Reason for Visit: UNRESPONSIVE Hospital Course Hospital Course Patient is a 54-year-old white female with MS and recurrent UTIs with 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 This was associate with acute encephalopathy. She was placed on IV antibiotics consisting of gentamicin and meropenem. She was hydrated. Hypernatremia was treated. CT head was performed demonstrating no acute change. She was very slow to wake up, and neurology was consulted and did an EEG making sure no subclinical seizure/status was occurring. She did receive her seizure medications IV during this time. With continued treatment, reduction of sodium, she came back to her baseline mental status and was able to discharge on April 13. At that time cultures of urine demonstrated ESBL, Proteus, sensitive to Zosyn. She will discharge on 10 more days of Zosyn. Note that she potentially could be resistant to meropenem. Gentamicin is sensitive as well. She was treated for constipation as well and had bowel movements daily at end of hospital stay, no abdominal pain. Patient was originally planned to be discharged on 04/13/2024 however could not sleep that night as senior living did not have the IV antibiotics arranged. Nursing facility was contacted again this morning and confirmed that they now have antibiotics available for the patient. Once this was confirmed transport arrangements were made and patient discharged to nursing facility today. Physical Exam Narrative: General: No acute distress HEENT: PERRLA, pupils bilaterally equal and reactive, pallors not present Chest: Normal vesicular breath sounds CVS: S1-S2 regular Abdomen: Soft, nontender, Discharge Data Studies Completed and Pending Completed Studies During Hospitalization Category Date Time Status CT abdomen pelvis w con* [id number] Stat Cat Scan 04/09/24 07:[address] head wo con* [id number] Stat Cat Scan 04/09/24 06:55 Completed CXRP [XR chest 1V portable [id number]] Routine Exams 04/12/24 10:08 Completed XR chest 1V portable [id number] Stat Exams 04/09/24 06:55 Completed Pending at discharge Category Date Time Status EEG electroencephalogram Routine Exams 04/10/24 17:59 Ordered KEPPRA [Levetiracetam Immunoassy] Routine Lab 04/12/24 03:52 Results Lacosamide (Vimpat) Routine Lab 04/12/24 03:52 Results Radiology Impressions Head CT 04/09/24 06:55 IMPRESSION: 1. No evidence of acute intracranial process. 2. Mild to moderately scattered white matter hypodensities. Differential considerations include chronic microvascular ischemic change, demyelinating disease, or gliosis from infectious/inflammatory source. Abdomen/Pelvis CT 04/09/24 07:14 IMPRESSION: 1. Fecal impaction in the rectum with mild rectal wall thickening. This constellation of findings could represent stercoral colitis. Otherwise no bowel obstruction. 2. Asymmetric fullness of the right collecting system again seen. Nonobstructing bilateral kidney stones are again identified. Chest X-Ray 04/12/24 10:08 IMPRESSION: Right arm PICC line placement as above. Laboratory Results WBC 10.71 10^3/uL (3.29-11.43) 04/13/24 04:05 RBC 3.23 10^6/uL (3.85-5.65) L 04/13/24 04:05 Hgb 8.90 g/dL (11.27-16.99) L 04/13/24 04:05 Hct 28.5 % (36-47) L 04/13/24 04:05 MCV 88.2 fl (85-98) 04/13/24 04:05 MCH 27.6 pg (27-33) 04/13/24 04:05 MCHC 31.2 g/dL (30-55) 04/13/24 04:05 RDW 18.4 % (12.1-15.1) H 04/13/24 04:05 Plt Count 457 10^3/cmm (157-399) H 04/13/24 04:05 MPV 9.4 fL (7.4-10.4) 04/13/24 04:05 Neut % (Auto) 63.2 % 04/13/24 04:05 Lymph % (Auto) 22.4 % 04/13/24 04:05 Garden % (Auto) 9.9 % 04/13/24 04:05 Eos % (Auto) 3.6 % 04/13/24 04:05 Baso % (Auto) 0.2 % 04/13/24 04:05 Neut # (Auto) 6.77 10^3/uL (1.8-7.7) 04/13/24 04:05 Lymph # (Auto) 2.4 10^3/uL (0.8-4.8) 04/13/24 04:05 Garden # (Auto) 1.1 10^3/uL (0.2-0.9) H 04/13/24 04:05 Eos # (Auto) 0.4 10^3/uL (0.0-0.8) 04/13/24 04:05 Baso # (Auto) 0.0 10^3/uL (0.0-0.1) 04/13/24 04:05 Nucleated RBC % (auto) 0 % 04/13/24 04:05 Nucleated RBCs # 0.0 /100WBC 04/13/24 04:05 Specimen Type Arterial 04/09/24 16:20 Sample Site Brachial, left 04/09/24 16:20 ABG pH 7.19 (7.35-7.45) L 04/09/24 16:20 ABG pCO2 22.1 mmHg (35-45) L 04/09/24 16:20 ABG pO2 108.0 mmHg (80.0-100.0) H 04/09/24 16:20 ABG PO2/FiO2 Ratio 514 04/09/24 16:20 ABG HCO3 8.4 mmol/L (22-26) L 04/09/24 16:20 ABG O2 Saturation 98.0 04/09/24 16:20 ABG Base Excess -18.0 mmol/L (-2.0-2.0) L 04/09/24 16:20 Andrews Test N/a 04/09/24 16:20 A-a O2 Gradient 1.8 mmHg (5-10) L 04/09/24 16:20 Hematocrit 35.4 % (37-47) L 04/09/24 16:20 Hgb O2 Saturation 96.0 % (95-100) 04/09/24 16:20 Carboxyhemoglobin 0.7 %THgb (0.4-20.1) 04/09/24 16:20 Methemoglobin 1.3 % (0.4-1.5) 04/09/24 16:20 Total Hemoglobin 11.6 g/dL (12-16) L 04/09/24 16:20 Sodium 161.0 mmol/L (131-143) H 04/09/24 16:20 Potassium 2.9 mmol/L (3.5-5.0) L 04/09/24 16:20 Glucose 100.0 mg/dL (70-115) 04/09/24 16:20 Ionized Calcium 1.5 mmol/L (1.1-1.4) H 04/09/24 16:20 O2 Delivery Device Room air 04/09/24 16:20 O2 Liters/Min 2.0 % 04/09/24 07:28 FiO2 21.0 % 04/09/24 16:20 Alteration Workroom Supervisor ID [id number] 04/09/24 16:20 Sodium 133 mmol/L (136-145) L 04/13/24 04:05 Potassium 4.3 mmol/L (3.5-5.1) 04/13/24 04:05 Chloride 105 mmol/L (98-107) 04/13/24 04:05 Carbon Dioxide 20 mmol/L (22-29) L 04/13/24 04:05 Anion Gap 12.3 (5-19) 04/13/24 04:05 BUN 8 mg/dL (6-20) 04/13/24 04:05 Creatinine 0.3 mg/dL (0.5-0.9) L 04/13/24 04:05 GFR Calculation 231.8 mL/min (90-130) H 04/13/24 04:05 Glucose 88 mg/dL (65-115) 04/13/24 04:05 Calculated Osmolality 274 mOsm/kg (285-295) L 04/13/24 04:05 Lactic Acid 1.8 mmol/L (0.5-2.2) 04/09/24 08:17 Calcium 9.0 mg/dL (8.5-10.5) 04/13/24 04:05 Magnesium 1.7 mg/dL (1.7-2.3) 04/13/24 04:05 Total Bilirubin 0.3 mg/dL (0.15-1.2) 04/12/24 03:52 AST 28 U/L (0-32) 04/12/24 03:52 ALT 19 U/L (0-33) 04/12/24 03:52 Alkaline Phosphatase 111 U/L (35-105) H 04/12/24 03:52 Ammonia 66 umol/L (11-51) H 04/09/24 08:17 Creatine Kinase 99 U/L (26-192) 04/09/24 15:25 Total Protein 6.6 g/dL (6.6-8.7) 04/12/24 03:52 Albumin 2.7 g/dL (3.5-5.2) L 04/12/24 03:52 Globulin 3.9 g/dL (1.3-4.6) 04/12/24 03:52 Urine Color Other (Yellow) A 04/09/24 07:41 Urine Appearance Turbid (CLEAR) A 04/09/24 07:41 Urine pH TNP 04/09/24 07:41 Ur Specific [place] TNP 04/09/24 07:41 Urine Protein TNP 04/09/24 07:41 Urine Glucose (UA) TNP 04/09/24 07:41 Urine Ketones TNP 04/09/24 07:41 Urine Blood TNP 04/09/24 07:41 Urine Nitrate TNP 04/09/24 07:41 Urine Bilirubin TNP 04/09/24 07:41 Urine Urobilinogen TNP 04/09/24 07:41 Ur Leukocyte Esterase TNP 04/09/24 07:41 Urine RBC >100 /hpf (0-2) H 04/09/24 07:41 Urine WBC >100 /hpf (0-5) H 04/09/24 07:41 Ur Squamous Epith Cells 0-4 /hpf (0-5) H 04/09/24 07:41 Amorphous Sediment Not Reportable 04/09/24 07:41 Urine Bacteria 4+ /hpf (NONE) H 04/09/24 07:41 Gentamicin Trough 0.6 ug/mL (0.0-8.0) 04/13/24 11:05 Random Gentamicin 6.9 (4-10) 04/09/24 21:20 Salicylates < 0.3 mg/dL (3-10) L 04/09/24 08:17 Urine Opiates Screen Negative ng/mL (Negative) 04/09/24 07:41 Acetaminophen < 5.0 ug/mL (10-30) L 04/09/24 08:17 Ur Barbiturates Screen Negative ng/mL (Negative) 04/09/24 07:41 Lacosamide Level 8.2 mcg/mL 04/09/24 08:17 Levetiracetam 65.1 mcg/mL (6.0-46.0) H 04/12/24 03:52 Ur Phencyclidine Scrn Negative ng/mL (Negative) 04/09/24 07:41 Ur Amphetamines Screen Negative ng/mL (Negative) 04/09/24 07:41 U Benzodiazepines Scrn Negative ng/mL (Negative) 04/09/24 07:41 Urine Cocaine Screen Negative ng/mL (Negative) 04/09/24 07:41 U Marijuana (THC) Screen Negative ng/mL (Negative) 04/09/24 07:41 Ethyl Alcohol < 10 mg/dL (0-10) 04/09/24 08:17 Coronavirus (PCR) Negative (Negative) 04/09/24 07:41 Influenza A (PCR) Negative (Negative) 04/09/24 07:41 Influenza Type B (PCR) Negative (Negative) 04/09/24 07:41 RSV (PCR) Negative (Negative) 04/09/24 07:41 Vitals Last Vital Signs Temp 98.0 F 04/14/24 11:58 Pulse 97 04/14/24 15:09 Resp 16 04/14/24 11:58 BP 127/86 04/14/24 15:09 Pulse Ox 96 04/14/24 15:09 O2 Del Method Room Air 04/14/24 11:58 O2 Flow Rate 1 04/09/24 11:50 Discharge Plan Discharge Patient Disposition: Xfer SNF Condition: Stable Prescriptions: New sennosides-docusate sodium [Stool Softener-Laxative] 8.6-50 mg Tablet 2 tab PO BID Qty: 120 0RF Continued potassium chloride 20 mEq tablet extended release 20 meq PO BID@, polyethylene glycol 3350 [Miralax] 17 gram/dose powder 4 g PO DAILY fluticasone propion-salmeterol [Advair Diskus] 500-50 mcg/dose blister with device 1 inh inhalation BID Lactobacillus acidophilus 1 billion cell capsule 1,000 mmu cells PO BID gabapentin 300 mg capsule 300 mg PO TID magnesium hydroxide 400 mg/5 mL suspension 30 ml PO BID PRN (Reason: Constipation) levetiracetam [Keppra] 1,000 mg tablet 1,500 mg PO BID Rx Instructions: along with 500mg tablet to = 1500mg guaifenesin 200 mg/5 mL liquid 500 mg PO Q4H PRN (Reason: Cough) baclofen 20 mg tablet 40 mg PO BEDTIME nystatin 100,000 unit/gram cream 1 applic topical QAM PRN (Reason: SCALY AREA) loratadine 10 mg tablet 10 mg PO DAILY@08 Fleet Enema 19-7 gram/118 mL Enema 118 ml RI DAILY PRN (Reason: Constipation) albuterol sulfate [Ventolin HFA] 90 mcg/actuation HFA aerosol inhaler 1 inh INHALATION Q8H PRN (Reason: Shortness Of Breath) ondansetron HCl 4 mg tablet 4 mg PO Q4H PRN (Reason: Nausea And Vomiting) omeprazole 20 mg capsule,delayed release(DR/EC) 20 mg PO DAILY venlafaxine [Effexor XR] 150 mg Capsule,Extended Release 24hr 150 mg PO DAILY methenamine hippurate [Hiprex] 1 gram Tablet 1 g PO QID lacosamide [Vimpat] 200 mg Tablet 200 mg PO BID simethicone 80 mg Tablet,Chewable 80 mg PO QID PRN (Reason: Gastrointestinal Spasms Or Cramping) melatonin 5 mg Tablet 5 mg PO BEDTIME baclofen 20 mg tablet 20 mg PO BID Rx Instructions: AM and NOON acetaminophen 325 mg Tablet 650 mg PO Q6H levetiracetam 500 mg tablet 500 mg PO BID Rx Instructions: along with 1000mg tablet to = 1500mg Santyl 250 unit/gram Ointment See Rx Instructions .ROUTE .COMPLEX Rx Instructions: 1 applic topically to sacrum every day and evening shift for pressure ulcer. Discontinued tramadol 50 mg tablet 50 mg PO Q4H PRN (Reason: Pain) ceftriaxone 1 gram Recon Soln 1 g IV QPM Discharge Orders: Discharge Order (Routine); Ordered 04/13/24 Ordered By: Haroon Tellez Referrals: Tony Keys MD [Primary Care Provider] - 4-7 days Discharge Diet: Usual diet Discharge Activity: Increase activity as tolerated Patient Instructions: Altered Mental Status (ED) Activity Restrictions/Additional Instructions: Take all medicine as prescribed CBC and BMP on Tuesday Return for concerns Please arrange follow up with Urology. Discharge Attestations Time Spent in Discharge Care*: less than 30 min Status at Discharge: Cognitive status at discharge: cognitively intact, Behavioral status at discharge: cooperative, Quality Metrics Clinical Quality Measures [ No reported AMI, CVA or VTE this stay] Coding Level of Care Code Acute Code for Chg Fwd Diagnoses Sepsis A41.9 UTI (urinary tract infection) N39.0 Presence of urostomy Z93.6 Multiple sclerosis G35 Seizure disorder G40.909 Hypernatremia E87.0 Hypokalemia E87.6 Decubitus ulcer L89.90
== END 2024-04-14 15:12 | disposition intermediate care facility (04) | DRG 698 ==
LOC: ER 07:33 → ICU 09:34 → MEDSURG 04-13 05:58
PROVIDERS: Admitting Provider Internal Medicine; Emergency Provider Family Medicine; PCP Internal Medicine; Visit Provider Student in an Organized Health Care Education/Training Program
DX: T83.518A Infection and inflammatory reaction due to other urinary catheter, initial encounter (principal); A41.9 Sepsis, unspecified organism; G93.41 Metabolic encephalopathy; L89.153 Pressure ulcer of sacral region, stage 3; N39.0 Urinary tract infection, site not specified; Z16.12 Extended spectrum beta lactamase (ESBL) resistance; E87.0 Hyperosmolality and hypernatremia; E87.20 Acidosis, unspecified; G82.20 Paraplegia, unspecified; B96.4 Proteus (mirabilis) (morganii) as the cause of diseases classified elsewhere; G35 Multiple sclerosis; G40.909 Epilepsy, unspecified, not intractable, without status epilepticus; E87.6 Hypokalemia; K21.9 Gastro-esophageal reflux disease without esophagitis; F32.A Depression, unspecified; F41.9 Anxiety disorder, unspecified; K56.41 Fecal impaction; Z87.440 Personal history of urinary (tract) infections; Y73.8 Miscellaneous gastroenterology and urology devices associated with adverse incidents, not elsewhere classified
CPT/HCPCS: 0241U; 36415; 36573; 36592; 36600; 70450; 71045; 74177; 80048; 80051; 80053; 80170; 80177; 80299; 80306; 80307; 81001; 82140; 82330; 82550; 82805; 83605; 83735; 85025; 87040; 87077; 87086; 87186; 92507; 92523; 92526; 92610; 93005; 95822; 96365; 96367; 96372; 96376; 99285; C9254; J1580; J1650; J1953; J2060; J2185; J2360; J2470; J2543; J3480; J7030; J7070

== ENCOUNTER 2024-04-28 04:18 | Inpatient (IN) | payer MEDICAID, SELFPAY ==
[2024-04-28] VITALS (15 sets, daily range): BP systolic 101–126; BP diastolic 64–88; PULSE 115–148; RESP 16–22; TEMP 37–37.2; O2SAT 88–99; BMI 31.3; BMI 20.2
--- NOTE | 2024-04-28 04:28 | XRR_ITS ---
PROCEDURE INFORMATION: Exam: XR Abdomen Exam date and time: 04/28/2024 4:42 AM Age: 54 years old Clinical indication: Vomiting and other: Diarrhea; Abdominal pain; Generalized; Prior surgery; Surgery date: 6+ months; Surgery type: Gb. Ileostomy. Urostomy. Hysterectomy. Patient HX: EMS arrival for abd pain with vomiting and diarrhea. History of recurrent sbo. ; Additional info: Nausea vomiting, TECHNIQUE: Imaging protocol: Radiologic exam of the abdomen. Views: Frontal supine view of the abdomen. 1 View. COMPARISON: CT abdomen pelvis w con* [id number] 04/09/2024 7:15 AM FINDINGS: Gastrointestinal tract: Nonobstructive bowel gas pattern. There is moderate amount of stool throughout the colon and rectum, concerning for constipation and fecal impaction. Organs: Cholecystectomy clip project over the right upper quadrant. Bones/joints: Degenerative changes of the spine and hip joints seen. XR/XR abdomen 1V* [id number] IMPRESSION: Imaging findings suggestive of constipation/fecal impaction. Clinical correlation recommended.
--- NOTE | 2024-04-28 04:57 | W.ED.ABDPA2 ---
Documented by User: Jorge Enamorado, 04/28/24 05:00 HPI - Abdominal Pain General: Chief Complaint: Abdominal Pain Stated Complaint: ABD PAIN Time Seen by Provider: 04/28/24 04:36 History of Present Illness: Patient presents to the ER from [facility] with nausea vomiting generalized abdominal pain that started yesterday. She is brought in by EMS. The halfway is a concerned she may have a small bowel obstruction, she has had a bowel obstruction in the past. Patient is a paraplegic with a history of epilepsy, neurogenic bladder, urostomy, multiple sclerosis Related Data Home Medications Medication Instructions Recorded Confirmed loratadine 10 mg tablet 10 mg PO DAILY@08 03/02/21 04/28/24 sodium phosphates 19 gram-7 118 ml HI DAILY PRN Constipation 03/02/21 04/28/24 gram/118 mL enema (Fleet Enema) potassium chloride 20 mEq 20 meq PO BID@08,17 04/20/21 04/28/24 tablet,extended release guaifenesin 200 mg/5 mL oral liquid 500 mg PO Q4H PRN Cough 09/16/21 04/28/24 Lactobacillus acidophilus 1 1,000 mmu cells PO BID 01/19/22 04/28/24 billion cell capsule fluticasone 500 mcg-salmeterol 50 1 inh inhalation BID 01/19/22 04/28/24 mcg/dose blistr powdr for inhalation (Advair Diskus) gabapentin 300 mg capsule 300 mg PO TID 01/19/22 04/28/24 magnesium hydroxide 400 mg/5 mL 30 ml PO BID PRN Constipation 01/19/22 04/28/24 oral suspension polyethylene glycol 3350 17 4 g PO DAILY 01/19/22 04/28/24 gram/dose oral powder (Miralax) omeprazole 20 mg capsule,delayed 20 mg PO DAILY 05/12/22 04/28/24 release lacosamide 200 mg tablet (Vimpat) 200 mg PO BID 05/13/22 04/28/24 melatonin 5 mg tablet 5 mg PO BEDTIME 05/13/22 04/28/24 simethicone 80 mg chewable tablet 80 mg PO QID PRN Gastrointestinal 05/13/22 04/28/24 Spasms Or Cramping venlafaxine 150 mg 150 mg PO DAILY 05/13/22 04/28/24 capsule,extended release 24 hr (Effexor XR) baclofen 20 mg tablet 20 mg PO BID 11/08/23 04/28/24 baclofen 20 mg tablet 40 mg PO BEDTIME 11/08/23 04/28/24 levetiracetam 1,000 mg tablet 1,500 mg PO BID 11/08/23 04/28/24 (Keppra) nystatin 100,000 unit/gram topical 1 applic topical QAM PRN SCALY AREA 12/19/23 04/28/24 cream albuterol sulfate 90 mcg/actuation 1 inh inhalation Q8H PRN Shortness 04/04/24 04/28/24 aerosol inhaler (Ventolin HFA) Of Breath ondansetron HCl 4 mg tablet 4 mg PO Q4H PRN Nausea And Vomiting 04/04/24 04/28/24 acetaminophen 325 mg tablet 650 mg PO Q6H Pain 04/09/24 04/28/24 levetiracetam 500 mg tablet 500 mg PO BID 04/09/24 04/28/24 piperacillin-tazobactam 3.375 gram 3.375 g IV Q8H 04/23/24 04/28/24 intravenous solution tramadol 50 mg tablet 50 mg PO Q6H PRN Pain 04/23/24 04/28/24 methenamine hippurate 1 gram tablet 1 g PO QID 04/28/24 04/28/24 sodium phosphates 19 gram-7 118 ml HI DAILY PRN Constipation 04/28/24 04/28/24 gram/118 mL enema (Fleet Enema) Previous Rx's Medication Instructions Recorded sennosides 8.6 mg-docusate sodium 2 tab PO BID #120 tabs 04/13/24 50 mg tablet (Stool Softener-Laxative) Allergies Allergy/AdvReac Type Severity Reaction Status Date / Time No Known Allergies Allergy Verified 04/23/24 13:30 Review of Systems General: Reports: 10 or more systems reviewed and unremarkable except in HPI and below PFSH ED PFSH: Medical History Generalized epilepsy Gallstone pancreatitis Struvite kidney stones Onychodystrophy Depression, endogenous Staghorn renal calculus Multiple sclerosis Seizure Anxiety Depression Hypertension Cerebellar tremor Anemia GERD (gastroesophageal reflux disease) Plantar callus Surgical History Status post laparoscopic cholecystectomy (07/16/21) S/P ERCP H/O cervical biopsy History of biopsy of bladder H/O: hysterectomy History of urostomy Family History Family/Other Cancer Hyperlipidemia Hypertension Denies family history of Diabetes CAD (coronary artery disease) Clotting disorder Dementia Psychiatric illness Chronic kidney disease (CKD) Suicide Anesthesia complication Bleeding disorder Family history of premature coronary artery disease Lung disease Stroke Social History Smoking and tobacco/nicotine status: unknown if used tobacco/nicotine Alcohol intake: never Substance/Drug Use: never Marital status: Current occupational status: retired and disabled Physical Exam Const: COMMON NORMALS: no acute distress, average body habitus, patient oriented x3, no limitations, healthy appearing, alert and well nourished HENMT: COMMON NORMALS: normocephalic, atraumatic, hearing grossly normal bilaterally, external ears normal, Normal external nose present and moist oral mucous membranes HEAD & SCALP: normocephalic and atraumatic NOSE: Normal external nose present EXTERNAL EAR: Yes external ears normal Neck/C-Spine: COMMON NORMALS: no JVD Chest: COMMONS NORMALS: normal inspection of the chest and normal palpation of entire chest wall Resp: COMMON NORMALS: normal respiratory effort, No retractions, No use of accessory muscles and clear to auscultation bilaterally AUSCULTATION: clear to auscultation bilaterally Cardio: COMMON NORMALS: no JVD, regular rhythm, S1 normal heart sound present, S2 normal heart sound present, No gallops present (Cardio), No clicks present (Cardio), No murmurs present (Cardio) and No rub (Cardio); negative for regular rate (Mildly tachycardic) RATE: abnormal rate (Mildly tachycardic) RHYTHM: regular rhythm HEART SOUNDS: S1 normal heart sound present and S2 normal heart sound present GI: COMMON NORMALS: Normal to inspection, nondistended, normoactive bowel sounds present, Soft to palpation, non-tender, No hepatosplenomegaly present and no masses PALPATION: Yes Soft to palpation and Yes No hepatosplenomegaly present Neuro: COMMON NORMALS: patient oriented x3 SENSORIUM/ORIENTATION: Yes alert Course Vital Signs: Vital signs: Vital Signs Temperature 98.9 F 04/28/24 04:24 Pulse Rate 148 H 04/28/24 15:43 Respiratory Rate 16 04/28/24 15:30 Blood Pressure 126/82 04/28/24 15:43 Pulse Oximetry 92 04/28/24 15:43 MDM - Abdominal Pain Medical Records I reviewed the patient's medical records. Lab Data I reviewed the patient's lab results. 04/28/24 04:56 04/28/24 04:56 Labs/Radiology: Radiology Impressions Abdomen X-Ray 04/28/24 04:28 IMPRESSION: Imaging findings suggestive of constipation/fecal impaction. Clinical correlation recommended. Chest X-Ray 04/28/24 05:14 IMPRESSION: Left lower lobe atelectasis versus pneumonia. Clinical correlation recommended. Abdomen/Pelvis CT 04/28/24 06:12 IMPRESSION: 1. No bowel obstruction. Imaging findings suggestive of constipation and fecal impaction. 2. Bilateral nonobstructive kidney stones. 3. Unchanged patchy airspace opacity with bronchiectasis in the posterior left lower lobe, likely representing atelectasis. Atelectasis pneumonia can have this appearance. Clinical correlation recommended. Liver Ultrasound 04/28/24 07:28 IMPRESSION: 1. Hyperechoic liver, which can be seen with fatty infiltration or hepatocellular disease. 2. Right kidney nonobstructing stones. Cholangiopancreatography MRI 04/28/24 08:59 IMPRESSION: 1. Post cholecystectomy with no biliary dilatation or filling defect in the CBD. 2. No hepatic lesion. COMMENTS: Consistent with the [place] [employer]'s Incidental Findings Committee white paper (J Am Jarad Radiol 2018): Any incidental renal lesion less than 1 cm or classified as too small to characterize, or any incidental cystic renal lesion characterized as simple-appearing, is likely benign. No follow-up imaging is recommended for these lesions per consensus recommendations based on imaging criteria. Laboratory Results WBC 13.21 10^3/uL (3.29-11.43) H 04/28/24 04:56 RBC 3.51 10^6/uL (3.85-5.65) L 04/28/24 04:56 Hgb 9.50 g/dL (11.27-16.99) L 04/28/24 04:56 Hct 31.0 % (36-47) L 04/28/24 04:56 MCV 88.3 fl (85-98) 04/28/24 04:56 MCH 27.1 pg (27-33) 04/28/24 04:56 MCHC 30.6 g/dL (30-55) 04/28/24 04:56 RDW 17.4 % (12.1-15.1) H 04/28/24 04:56 Plt Count 600 10^3/cmm (157-399) H 04/28/24 04:56 MPV 8.8 fL (7.4-10.4) 04/28/24 04:56 Neut % (Auto) 74.6 % 04/28/24 04:56 Lymph % (Auto) 10.9 % 04/28/24 04:56 [place] % (Auto) 13.3 % 04/28/24 04:56 Eos % (Auto) 0.3 % 04/28/24 04:56 Baso % (Auto) 0.4 % 04/28/24 04:56 Neut # (Auto) 9.86 10^3/uL (1.8-7.7) H 04/28/24 04:56 Lymph # (Auto) 1.4 10^3/uL (0.8-4.8) 04/28/24 04:56 [place] # (Auto) 1.8 10^3/uL (0.2-0.9) H 04/28/24 04:56 Eos # (Auto) 0.0 10^3/uL (0.0-0.8) 04/28/24 04:56 Baso # (Auto) 0.1 10^3/uL (0.0-0.1) 04/28/24 04:56 Nucleated RBC % (auto) 0 % 04/28/24 04:56 Nucleated RBCs # 0.0 /100WBC 04/28/24 04:56 Sodium 132 mmol/L (136-145) L 04/28/24 04:56 Potassium 4.5 mmol/L (3.5-5.1) 04/28/24 04:56 Chloride 101 mmol/L (98-107) 04/28/24 04:56 Carbon Dioxide 21 mmol/L (22-29) L 04/28/24 04:56 Anion Gap 14.5 (5-19) 04/28/24 04:56 BUN 10 mg/dL (6-20) 04/28/24 04:56 Creatinine 0.3 mg/dL (0.5-0.9) L 04/28/24 04:56 GFR Calculation 231.8 mL/min (90-130) H 04/28/24 04:56 Glucose 109 mg/dL (65-115) 04/28/24 04:56 Calculated Osmolality 274 mOsm/kg (285-295) L 04/28/24 04:56 Lactic Acid 1.1 mmol/L (0.5-2.2) 04/28/24 04:56 Calcium 8.9 mg/dL (8.5-10.5) 04/28/24 04:56 Magnesium 1.8 mg/dL (1.7-2.3) 04/28/24 04:56 Total Bilirubin 0.2 mg/dL (0.15-1.2) 04/28/24 04:56 AST 264 U/L (0-32) H 04/28/24 04:56 ALT 34 U/L (0-33) H 04/28/24 04:56 Alkaline Phosphatase 154 U/L (35-105) H 04/28/24 04:56 Total Protein 7.5 g/dL (6.6-8.7) 04/28/24 04:56 Albumin 2.7 g/dL (3.5-5.2) L 04/28/24 04:56 Globulin 4.8 g/dL (1.3-4.6) H 04/28/24 04:56 Lipase 44 U/L (13-60) 04/28/24 04:56 Urine Color Yellow (Yellow) 04/28/24 07:34 Urine Appearance Clear (CLEAR) 04/28/24 07:34 Urine pH 7.0 (5-7) 04/28/24 07:34 Ur Specific [place] 1.013 (1.005-1.030) 04/28/24 07:34 Urine Protein Negative (Negative) 04/28/24 07:34 Urine Glucose (UA) Negative (Normal) 04/28/24 07:34 Urine Ketones Negative (Negative) 04/28/24 07:34 Urine Blood 1+ (Negative) A 04/28/24 07:34 Urine Nitrate Negative (Negative) 04/28/24 07:34 Urine Bilirubin Negative (Negative) 04/28/24 07:34 Urine Urobilinogen 0.2 mg/dL (Negative) 04/28/24 07:34 Ur Leukocyte Esterase Trace (Negative) A 04/28/24 07:34 Urine RBC 6-10 /hpf (0-2) 04/28/24 07:34 Urine WBC 21-50 /hpf (0-5) H 04/28/24 07:34 Ur Squamous Epith Cells 0-5 /hpf (0-5) 04/28/24 07:34 Amorphous Sediment Trace /hpf 04/28/24 07:34 Urine Bacteria None seen /hpf (NONE) 04/28/24 07:34 Hyaline Casts 5.77 /lpf 04/28/24 07:34 Urine Mucus Trace /hpf 04/28/24 07:34 Urine Yeast 2+ /hpf H 04/28/24 07:34 Coronavirus (PCR) Negative (Negative) 04/28/24 06:35 Hepatitis A IgM Ab Non-reactive (Nonreactive) 04/28/24 04:56 Hep Bs Antigen Non-reactive (Nonreactive) 04/28/24 04:56 Hep B Core IgM Ab Non-reactive (Nonreactive) 04/28/24 04:56 Hepatitis C Antibody Non-reactive (Nonreactive) 04/28/24 04:56 Influenza A (PCR) Negative (Negative) 04/28/24 06:35 Influenza Type B (PCR) Negative (Negative) 04/28/24 06:35 RSV (PCR) Negative (Negative) 04/28/24 06:35 All radiology interpretation(s) finalized by discharge Discharge Plan Discharge Patient Disposition: Admitted As Inpatient Admit Provider: Smith Jaramillo Clinical Impression: Elevated transaminase level, History of urostomy, UTI (urinary tract infection), Sacral decubitus ulcer Condition: Stable Coding Level of Care Code ED Gate Attendant for Louise Roca Documented by User: Kodi Stevenson, 04/28/24 16:30 HPI - Abdominal Pain General: Chief Complaint: Abdominal Pain Stated Complaint: ABD PAIN Time Seen by Provider: 04/28/24 04:36 Related Data Home Medications Medication Instructions Recorded Confirmed loratadine 10 mg tablet 10 mg PO DAILY@08 03/02/21 04/28/24 sodium phosphates 19 gram-7 118 ml HI DAILY PRN Constipation 03/02/21 04/28/24 gram/118 mL enema (Fleet Enema) potassium chloride 20 mEq 20 meq PO BID@08,17 04/20/21 04/28/24 tablet,extended release guaifenesin 200 mg/5 mL oral liquid 500 mg PO Q4H PRN Cough 09/16/21 04/28/24 Lactobacillus acidophilus 1 1,000 mmu cells PO BID 01/19/22 04/28/24 billion cell capsule fluticasone 500 mcg-salmeterol 50 1 inh inhalation BID 01/19/22 04/28/24 mcg/dose blistr powdr for inhalation (Advair Diskus) gabapentin 300 mg capsule 300 mg PO TID 01/19/22 04/28/24 magnesium hydroxide 400 mg/5 mL 30 ml PO BID PRN Constipation 01/19/22 04/28/24 oral suspension polyethylene glycol 3350 17 4 g PO DAILY 01/19/22 04/28/24 gram/dose oral powder (Miralax) omeprazole 20 mg capsule,delayed 20 mg PO DAILY 05/12/22 04/28/24 release lacosamide 200 mg tablet (Vimpat) 200 mg PO BID 05/13/22 04/28/24 melatonin 5 mg tablet 5 mg PO BEDTIME 05/13/22 04/28/24 simethicone 80 mg chewable tablet 80 mg PO QID PRN Gastrointestinal 05/13/22 04/28/24 Spasms Or Cramping venlafaxine 150 mg 150 mg PO DAILY 05/13/22 04/28/24 capsule,extended release 24 hr (Effexor XR) baclofen 20 mg tablet 20 mg PO BID 11/08/23 04/28/24 baclofen 20 mg tablet 40 mg PO BEDTIME 11/08/23 04/28/24 levetiracetam 1,000 mg tablet 1,500 mg PO BID 11/08/23 04/28/24 (Keppra) nystatin 100,000 unit/gram topical 1 applic topical QAM PRN SCALY AREA 12/19/23 04/28/24 cream albuterol sulfate 90 mcg/actuation 1 inh inhalation Q8H PRN Shortness 04/04/24 04/28/24 aerosol inhaler (Ventolin HFA) Of Breath ondansetron HCl 4 mg tablet 4 mg PO Q4H PRN Nausea And Vomiting 04/04/24 04/28/24 acetaminophen 325 mg tablet 650 mg PO Q6H Pain 04/09/24 04/28/24 levetiracetam 500 mg tablet 500 mg PO BID 04/09/24 04/28/24 piperacillin-tazobactam 3.375 gram 3.375 g IV Q8H 04/23/24 04/28/24 intravenous solution tramadol 50 mg tablet 50 mg PO Q6H PRN Pain 04/23/24 04/28/24 methenamine hippurate 1 gram tablet 1 g PO QID 04/28/24 04/28/24 sodium phosphates 19 gram-7 118 ml HI DAILY PRN Constipation 04/28/24 04/28/24 gram/118 mL enema (Fleet Enema) Previous Rx's Medication Instructions Recorded sennosides 8.6 mg-docusate sodium 2 tab PO BID #120 tabs 04/13/24 50 mg tablet (Stool Softener-Laxative) Allergies Allergy/AdvReac Type Severity Reaction Status Date / Time No Known Allergies Allergy Verified 04/23/24 13:30 [facility] ED PFSH: Medical History Generalized epilepsy Gallstone pancreatitis Struvite kidney stones Onychodystrophy Depression, endogenous Staghorn renal calculus Multiple sclerosis Seizure Anxiety Depression Hypertension Cerebellar tremor Anemia GERD (gastroesophageal reflux disease) Plantar callus Surgical History Status post laparoscopic cholecystectomy (07/16/21) S/P ERCP H/O cervical biopsy History of biopsy of bladder H/O: hysterectomy History of urostomy Family History Family/Other Cancer Hyperlipidemia Hypertension Denies family history of Diabetes CAD (coronary artery disease) Clotting disorder Dementia Psychiatric illness Chronic kidney disease (CKD) Suicide Anesthesia complication Bleeding disorder Family history of premature coronary artery disease Lung disease Stroke Social History Smoking and tobacco/nicotine status: unknown if used tobacco/nicotine Alcohol intake: never Substance/Drug Use: never Marital status: Current occupational status: retired and disabled Course Vital Signs: Vital signs: Vital Signs Temperature 98.9 F 04/28/24 04:24 Pulse Rate 148 H 04/28/24 15:43 Respiratory Rate 16 04/28/24 15:30 Blood Pressure 126/82 04/28/24 15:43 Pulse Oximetry 92 04/28/24 15:43 MDM - Abdominal Pain Medical Decision Making Care assumed at change of shift. Patient has mild leukocytosis and elevated transaminases and alk phos. She has had elevated transaminases in the past these are higher than she is previously on. She denies any abdominal pain. She tells me that she threw up once yesterday. Patient was hospitalized earlier this month for sepsis with UTI. She has a urostomy tube she has a history of MS as well. Reexamined patient after the CT was completed she denies any abdominal pain. She has not had any vomiting today. I have reviewed the CT there is no sign of obstruction. No acute pathology identified. Question of the left lower lobe pneumonia. No comment on common bile duct dilation on the CT. Hepatitis panel ordered as well as ultrasound to evaluate common bile duct. Hepatitis panel negative ultrasound of the common common bile duct does not show any significant dilation. MRCP does not show signs of ascending cholangitis she is does not have a fever no elevated bilirubin discussed with Dr. Jaramillo while it is concerning for that and does not appear to be that she has an ascending cholangitis at this time maybe some other viral infection causing this for now along with a leukocytosis we will observe her IV fluids. Orders written for admission. Lab Data 04/28/24 04:56 04/28/24 04:56 Labs/Radiology: Radiology Impressions Abdomen X-Ray 04/28/24 04:28 IMPRESSION: Imaging findings suggestive of constipation/fecal impaction. Clinical correlation recommended. Chest X-Ray 04/28/24 05:14 IMPRESSION: Left lower lobe atelectasis versus pneumonia. Clinical correlation recommended. Abdomen/Pelvis CT 04/28/24 06:12 IMPRESSION: 1. No bowel obstruction. Imaging findings suggestive of constipation and fecal impaction. 2. Bilateral nonobstructive kidney stones. 3. Unchanged patchy airspace opacity with bronchiectasis in the posterior left lower lobe, likely representing atelectasis. Atelectasis pneumonia can have this appearance. Clinical correlation recommended. Liver Ultrasound 04/28/24 07:28 IMPRESSION: 1. Hyperechoic liver, which can be seen with fatty infiltration or hepatocellular disease. 2. Right kidney nonobstructing stones. Cholangiopancreatography MRI 04/28/24 08:59 IMPRESSION: 1. Post cholecystectomy with no biliary dilatation or filling defect in the CBD. 2. No hepatic lesion. COMMENTS: Consistent with the [place] [employer]'s Incidental Findings Committee white paper (J Am Jarad Radiol 2018): Any incidental renal lesion less than 1 cm or classified as too small to characterize, or any incidental cystic renal lesion characterized as simple-appearing, is likely benign. No follow-up imaging is recommended for these lesions per consensus recommendations based on imaging criteria. Laboratory Results WBC 13.21 10^3/uL (3.29-11.43) H 04/28/24 04:56 RBC 3.51 10^6/uL (3.85-5.65) L 04/28/24 04:56 Hgb 9.50 g/dL (11.27-16.99) L 04/28/24 04:56 Hct 31.0 % (36-47) L 04/28/24 04:56 MCV 88.3 fl (85-98) 04/28/24 04:56 MCH 27.1 pg (27-33) 04/28/24 04:56 MCHC 30.6 g/dL (30-55) 04/28/24 04:56 RDW 17.4 % (12.1-15.1) H 04/28/24 04:56 Plt Count 600 10^3/cmm (157-399) H 04/28/24 04:56 MPV 8.8 fL (7.4-10.4) 04/28/24 04:56 Neut % (Auto) 74.6 % 04/28/24 04:56 Lymph % (Auto) 10.9 % 04/28/24 04:56 [place] % (Auto) 13.3 % 04/28/24 04:56 Eos % (Auto) 0.3 % 04/28/24 04:56 Baso % (Auto) 0.4 % 04/28/24 04:56 Neut # (Auto) 9.86 10^3/uL (1.8-7.7) H 04/28/24 04:56 Lymph # (Auto) 1.4 10^3/uL (0.8-4.8) 04/28/24 04:56 [place] # (Auto) 1.8 10^3/uL (0.2-0.9) H 04/28/24 04:56 Eos # (Auto) 0.0 10^3/uL (0.0-0.8) 04/28/24 04:56 Baso # (Auto) 0.1 10^3/uL (0.0-0.1) 04/28/24 04:56 Nucleated RBC % (auto) 0 % 04/28/24 04:56 Nucleated RBCs # 0.0 /100WBC 04/28/24 04:56 Sodium 132 mmol/L (136-145) L 04/28/24 04:56 Potassium 4.5 mmol/L (3.5-5.1) 04/28/24 04:56 Chloride 101 mmol/L (98-107) 04/28/24 04:56 Carbon Dioxide 21 mmol/L (22-29) L 04/28/24 04:56 Anion Gap 14.5 (5-19) 04/28/24 04:56 BUN 10 mg/dL (6-20) 04/28/24 04:56 Creatinine 0.3 mg/dL (0.5-0.9) L 04/28/24 04:56 GFR Calculation 231.8 mL/min (90-130) H 04/28/24 04:56 Glucose 109 mg/dL (65-115) 04/28/24 04:56 Calculated Osmolality 274 mOsm/kg (285-295) L 04/28/24 04:56 Lactic Acid 1.1 mmol/L (0.5-2.2) 04/28/24 04:56 Calcium 8.9 mg/dL (8.5-10.5) 04/28/24 04:56 Magnesium 1.8 mg/dL (1.7-2.3) 04/28/24 04:56 Total Bilirubin 0.2 mg/dL (0.15-1.2) 04/28/24 04:56 AST 264 U/L (0-32) H 04/28/24 04:56 ALT 34 U/L (0-33) H 04/28/24 04:56 Alkaline Phosphatase 154 U/L (35-105) H 04/28/24 04:56 Total Protein 7.5 g/dL (6.6-8.7) 04/28/24 04:56 Albumin 2.7 g/dL (3.5-5.2) L 04/28/24 04:56 Globulin 4.8 g/dL (1.3-4.6) H 04/28/24 04:56 Lipase 44 U/L (13-60) 04/28/24 04:56 Urine Color Yellow (Yellow) 04/28/24 07:34 Urine Appearance Clear (CLEAR) 04/28/24 07:34 Urine pH 7.0 (5-7) 04/28/24 07:34 Ur Specific [place] 1.013 (1.005-1.030) 04/28/24 07:34 Urine Protein Negative (Negative) 04/28/24 07:34 Urine Glucose (UA) Negative (Normal) 04/28/24 07:34 Urine Ketones Negative (Negative) 04/28/24 07:34 Urine Blood 1+ (Negative) A 04/28/24 07:34 Urine Nitrate Negative (Negative) 04/28/24 07:34 Urine Bilirubin Negative (Negative) 04/28/24 07:34 Urine Urobilinogen 0.2 mg/dL (Negative) 04/28/24 07:34 Ur Leukocyte Esterase Trace (Negative) A 04/28/24 07:34 Urine RBC 6-10 /hpf (0-2) 04/28/24 07:34 Urine WBC 21-50 /hpf (0-5) H 04/28/24 07:34 Ur Squamous Epith Cells 0-5 /hpf (0-5) 04/28/24 07:34 Amorphous Sediment Trace /hpf 04/28/24 07:34 Urine Bacteria None seen /hpf (NONE) 04/28/24 07:34 Hyaline Casts 5.77 /lpf 04/28/24 07:34 Urine Mucus Trace /hpf 04/28/24 07:34 Urine Yeast 2+ /hpf H 04/28/24 07:34 Coronavirus (PCR) Negative (Negative) 04/28/24 06:35 Hepatitis A IgM Ab Non-reactive (Nonreactive) 04/28/24 04:56 Hep Bs Antigen Non-reactive (Nonreactive) 04/28/24 04:56 Hep B Core IgM Ab Non-reactive (Nonreactive) 04/28/24 04:56 Hepatitis C Antibody Non-reactive (Nonreactive) 04/28/24 04:56 Influenza A (PCR) Negative (Negative) 04/28/24 06:35 Influenza Type B (PCR) Negative (Negative) 04/28/24 06:35 RSV (PCR) Negative (Negative) 04/28/24 06:35 Discharge Plan Discharge Patient Disposition: Admitted As Inpatient Admit Provider: Smith Jaramillo Clinical Impression: Elevated transaminase level, History of urostomy, UTI (urinary tract infection), Sacral decubitus ulcer Condition: Stable Coding Level of Care Code ED Gate Attendant for Louise Roca
[2024-04-28 05:04] LABS: Basophils # 0.1 10^3/uL (0.0-0.1); Basophils % 0.4 %; Eosinophils % 0.3 %; Lymphocytes # 1.4 10^3/uL (0.8-4.8); Lymphocytes % 10.9 %; Mean Corpuscular HGB Conc 30.6 g/dL (30-55); Mean Corpuscular Hemoglobin 27.1 pg (27-33); Mean Corpuscular Volume 88.3 fl (85-98); Mean Platelet Volume 8.8 fL (7.4-10.4); Monocytes # 1.8 10^3/uL (0.2-0.9); Monocytes % 13.3 %; Neutrophils # 9.86 10^3/uL (1.8-7.7); Neutrophils % 74.6 %; Nucleated Red Blood Cells % 0 %; Platelet Count 600 10^3/cmm (157-399); Red Blood Count 3.51 10^6/uL (3.85-5.65); Red Cell Distribution Width 17.4 % (12.1-15.1); White Blood Count 13.21 10^3/uL (3.29-11.43)
--- NOTE | 2024-04-28 05:14 | XRR_ITS ---
PROCEDURE INFORMATION: Exam: XR Chest Exam date and time: 04/28/2024 5:17 AM Age: 54 years old Clinical indication: Cough; Prior surgery; Surgery date: 6+ months; Surgery type: Gb; Additional info: Dyspnea/cough TECHNIQUE: Imaging protocol: Radiologic exam of the chest. Views: 1 view. COMPARISON: CR XR chest 1V portable [id number] 04/12/2024 10:59 AM FINDINGS: Tubes, catheters and devices: Right sided PICC is in satisfactory position, with distal tip at the level of the SVC/RA junction. Lungs: There is streaky/hazy airspace opacity in the left lower lobe, which may represent component of atelectasis or pneumonia. Pleural spaces: Unremarkable. No pleural effusion. No pneumothorax. Heart/Mediastinum: Stable cardiomediastinal silhouette. Bones/joints: Degenerative changes of the spine seen. XR/XR chest 1V portable [id number] IMPRESSION: Left lower lobe atelectasis versus pneumonia. Clinical correlation recommended.
[2024-04-28 05:23] LABS: Alanine Aminotransferase 34 U/L (0-33); Albumin Level 2.7 g/dL (3.5-5.2); Alkaline Phosphatase 154 U/L (35-105); Anion Gap 14.5 (5-19); Aspartate Amino Transferase 264 U/L (0-32); Blood Urea Nitrogen 10 mg/dL (6-20); Calcium 8.9 mg/dL (8.5-10.5); Carbon Dioxide 21 mmol/L (22-29); Chloride 101 mmol/L (98-107); Creatinine Clr Calc Pharmacy 247.8875; Globulin 4.8 g/dL (1.3-4.6); Glomerular Filtration Rate 231.8 mL/min (90-130); Glucose 109 mg/dL (65-115); Lipase 44 U/L (13-60); Magnesium 1.8 mg/dL (1.7-2.3); Osmolality Calculated 274 mOsm/kg (285-295); Potassium 4.5 mmol/L (3.5-5.1); Sodium 132 mmol/L (136-145); Total Bilirubin 0.2 mg/dL (0.15-1.2); Total Protein 7.5 g/dL (6.6-8.7)
[2024-04-28 05:24] LABS: Lactic Sepsis W/Reflex 1.1 mmol/L (0.5-2.2)
--- NOTE | 2024-04-28 06:12 | CTR_ITS ---
PROCEDURE INFORMATION: Exam: CT Abdomen And Pelvis Without Contrast Exam date and time: 04/28/2024 6:27 AM Age: 54 years old Clinical indication: Vomiting and other: Diarrhea; Abdominal pain; Generalized; Prior surgery; Surgery date: 6+ months; Surgery type: Gb. Ileostomy. Hysterectomy. Urostomy. Patient HX: EMS arrival for abd pain with vomiting and diarrhea. History of recurrent sbo. TECHNIQUE: Imaging protocol: Computed tomography of the abdomen and pelvis without contrast. Radiation optimization: All CT scans at this facility use at least one of these dose optimization techniques: automated exposure control; mA and/or kV adjustment per patient size (includes targeted exams where dose is matched to clinical indication); or iterative reconstruction. COMPARISON: CT abdomen pelvis w con* [id number] 04/09/2024 7:15 AM RADIATION DOSE METRICS: Total DLP (mGy-cm): 375.38 FINDINGS: Lungs: Similar appearance of focal area of bronchiectasis with patchy airspace opacity in the posterior left lower lobe. Liver: Normal. No mass. Gallbladder and biliary ducts: The gallbladder has been surgically removed. Pancreas: Normal. No ductal dilation. Spleen: Normal. No splenomegaly. Adrenal glands: Normal. No mass. Kidneys and ureters: There are bilateral nonobstructive kidney stones, the largest on the right measuring 1.8 cm. No hydronephrosis. Stomach and bowel: Right lower quadrant ileostomy noted. Moderate amount of stool seen in the colon and rectum. No obstruction. No inflammation. Suture line noted in the cecum. Appendix: No evidence of appendicitis. Intraperitoneal space: Unremarkable. No free air. No significant fluid collection. Vasculature: No aortic aneurysm. No aortic dissection. Mild diffuse atherosclerotic disease is present. Lymph nodes: Unremarkable. No enlarged lymph nodes. Urinary bladder: Unremarkable as visualized. Reproductive: The uterus is surgically absent. Bones/joints: Degenerative changes of the spine seen. Soft tissues: Unremarkable. CT/CT abdomen pelvis wo con [id number] IMPRESSION: 1. No bowel obstruction. Imaging findings suggestive of constipation and fecal impaction. 2. Bilateral nonobstructive kidney stones. 3. Unchanged patchy airspace opacity with bronchiectasis in the posterior left lower lobe, likely representing atelectasis. Atelectasis pneumonia can have this appearance. Clinical correlation recommended.
[2024-04-28 07:26] LABS: Covid PCR NEGATIVE (Negative); Influenza A NEGATIVE (Negative); Influenza B NEGATIVE (Negative); Respiratory Syncytial Virus Ce NEGATIVE (Negative)
--- NOTE | 2024-04-28 07:28 | USR_ITS ---
PROCEDURE INFORMATION: Exam: US Abdomen, Limited; Right Upper Quadrant Exam date and time: 04/28/2024 8:17 AM Age: 54 years old Clinical indication: Abnormal findings; Abnormal lab test; Other: Elevated transaminases; Additional info: Elevated transaminases, evaluate common bile duct TECHNIQUE: Imaging protocol: Real time ultrasound of the abdomen with image documentation. Limited exam focused on the right upper quadrant. COMPARISON: CT abdomen pelvis con [id number] 04/28/2024 6:27 AM FINDINGS: Liver: Liver is diffusely increased in echogenicity, most commonly seen in hepatic steatosis, though other forms of parenchymal liver disease could have a similar appearance. This limits evaluation for subtle isoechoic masses but no masses are seen. Patent main portal vein with normal direction of flow. Gallbladder: The gallbladder has been surgically removed. Biliary ducts: Normal. No stones. No dilation. Pancreas: Visualized pancreas is unremarkable. Right kidney: Gallstones noted in the right kidney, the largest measuring 1.5 cm. No mass. No hydronephrosis. US/US liver [id number] IMPRESSION: 1. Hyperechoic liver, which can be seen with fatty infiltration or hepatocellular disease. 2. Right kidney nonobstructing stones.
[2024-04-28 07:54] LABS: Bilirubin Urine Negative (Negative); Blood Urine 1+ (Negative); Glucose Urine UA Negative (Normal); Ketones Urine Negative (Negative); Leukocyte Esterase Urine Trace (Negative); Nitrate Urine Negative (Negative); Protein Urine Negative (Negative); Specific Gravity, Urine 1.013 (1.005-1.030); Urine Appearance Clear (CLEAR); Urine Color Yellow (Yellow); Urobilinogen Urine 0.2 mg/dL (Negative)
[2024-04-28 07:57] LABS: Hepatitis A Antibody IgM Non-Reactive (Nonreactive); Hepatitis B Core IgM Non-Reactive (Nonreactive); Hepatitis B Surface Antigen Non-Reactive (Nonreactive); Hepatitis C Virus Antibody Non-Reactive (Nonreactive)
[2024-04-28 07:57] LABS: Add Urine Microscopic? YES; Bacteria Urine None Seen /hpf; Hyaline Casts Urine 5.77 /lpf; Squamous Epithelial Cell Urine 0-5 /hpf (0-5); WBC Urine 21-50 /hpf (0-5)
--- NOTE | 2024-04-28 08:09 | PC.NURSE ---
took over pt care at 0650, from HARINI Wyman.
[2024-04-28 08:14] LABS: Add Urine Culture? Yes; Amorphous Sediment Urine TRACE /hpf; Mucus Urine TRACE /hpf; UA Slide Review UA Slide Review Perf
--- NOTE | 2024-04-28 08:59 | MRR_ITS ---
PROCEDURE INFORMATION: Exam: MR Abdomen Without Contrast, Biliary System Exam date and time: 04/28/2024 10:22 AM Age: 54 years old Clinical indication: Abnormal findings; Abnormal lab test; Elevated liver enzymes; Nausea and vomiting; Prior surgery; Surgery date: 6+ months; Surgery type: Gallbladder, ileostomy, urostomy; Patient HX: Patient has multiple sclerosis TECHNIQUE: Imaging protocol: MR of the abdomen without contrast. Exam focused on the biliary system and pancreatic ducts. Routine 3D-MRCP images were acquired and processed without radiologist supervision. COMPARISON: CT abdomen pelvis wo con [id number] 04/28/2024 6:27 AM FINDINGS: Lungs: Left lower lobe atelectasis. Liver: No mass. Gallbladder and biliary ducts: There has been a cholecystectomy. No biliary dilatation. Pancreas: Unremarkable. No ductal dilation. Kidneys: Bilateral simple renal cysts. Stomach and bowel: Post ileostomy. Intraperitoneal space: No fluid collection. Bones/joints: Mild curvature of the thoracolumbar spine convex to the right. MR/MR MRCP [id number] IMPRESSION: 1. Post cholecystectomy with no biliary dilatation or filling defect in the CBD. 2. No hepatic lesion. COMMENTS: Consistent with the [employer] [place] [employer]'s Incidental Findings Committee white paper (J Am Jarad Radiol 2018): Any incidental renal lesion less than 1 cm or classified as too small to characterize, or any incidental cystic renal lesion characterized as simple-appearing, is likely benign. No follow-up imaging is recommended for these lesions per consensus recommendations based on imaging criteria.
[2024-04-28] MEDS: piperacillin-tazobactam 3.375 GM in sodium chloride 0.9% (plus) 50 ML IV (09:42)
--- NOTE | 2024-04-28 14:36 | PC.NURSE ---
called lab to see how to put order in for culture on PICC line that was removed. Wendy in lab told his RN to put it in as a wound culture and she would take care of it.
[2024-04-28] MEDS: meropenem 1,000 mg SDV 1000 MG IVP (14:55)
--- NOTE | 2024-04-28 15:29 | PC.NURSE ---
pts O2 saturation was consistantly dropping in the mid 80's, provider gave a verbal order to put pt on 2L of O2 via NC. approached patient and told her the provider would like her to be on O2 and she states 'id rather not, i have never needed oxygen and dont need it now.' provider notified.
--- NOTE | 2024-04-28 17:50 | P.HP_ITS ---
Providers/Chief Complaint 2 Admitting Physician: Smith Jaramillo Primary Care Provider: Tony Keys MD Chief Complaint: ABD PAIN History of Present Illness Pleasant 54-year-old lady with history of multiple sclerosis, lower extremity paralysis, pressure sore, urostomy, epilepsy, with recent hospitalization earlier this month with sepsis, UTI, acute encephalopathy, decreased level questions, at the time was assess for any subclinical seizure, hyponatremia, hypokalemia, with treatment with gradual improvement in mental status. Urine eventually growing Proteus, ESBL resistant organism, PICC line was placed and she was discharged with 10 days of Zosyn on 04/13. She returned to ER today for evaluation due to nausea, vomiting, generalized abdominal pain, malaise, and ER with sinus tachycardia 120s, WBC 13.21, predominantly neutrophilic, sodium 132, lactic acid 1.1, AST with new elevation 264 ALT 34, alk phos 154. T. bili normal. Magnesium 1.8. Lipase 44. UA with 21-50 WBC, 2+ yeast. Hepatitis panel, respiratory viral panel requested. She underwent imaging with abdominal x-ray which showed findings suggestive of constipation/fecal impaction. Chest x-ray with left lower lobe atelectasis versus pneumonia. CT abdomen pelvis without bowel obstruction but with constipation and fecal impaction. Bilateral nonobstructing kidney stones. Unchanged patchy airspace [place] with bronchiectasis in the posterior left lower lobe likely representing atelectasis. Atelectasis pneumonia can have this appearance. Liver ultrasound with hyperechoic liver possibly fat infiltration or hepatocellular disease. Right kidney nonobstructing stones. MRCP with postcholecystectomy changes with no biliary dilation or filling defect in CBD. No hepatic lesion. She is still having a PICC line in her right arm, she states since last discharge. Review of Systems 2 Const: Denies: fever(s), chills, body aches or malaise ENMT: Denies: throat pain Card: Denies: chest pain, edema, pre-syncope or dyspnea on exertion Resp: Denies: dyspnea, productive cough, change in phlegm color or hemoptysis GI: Denies: abdominal pain, nausea, vomiting, diarrhea, constipation, hematochezia or melena : Denies: flank pain, urinary frequency or hematuria Musc: Denies: back pain, joint swelling or joint redness Skin/Breast: Denies: rash or new lesions Neuro: Denies: headache(s) or confusion Medications/Allergies Home Medications Medication Instructions Recorded Confirmed Last Taken Type loratadine 10 mg tablet 10 mg PO DAILY@08 03/02/21 04/28/24 04/27/24 History sodium phosphates 19 gram-7 118 ml [place] DAILY PRN Constipation 03/02/21 04/28/24 Unknown History gram/118 mL enema (Fleet Enema) potassium chloride 20 mEq 20 meq PO BID@08,17 04/20/21 04/28/24 04/27/24 History tablet,extended release guaifenesin 200 mg/5 mL oral liquid 500 mg PO Q4H PRN Cough 09/16/21 04/28/24 Unknown History Lactobacillus acidophilus 1 1,000 mmu cells PO BID 01/19/22 04/28/24 04/27/24 History billion cell capsule fluticasone 500 mcg-salmeterol 50 1 inh inhalation BID 01/19/22 04/28/24 04/27/24 History mcg/dose blistr powdr for inhalation (Advair Diskus) gabapentin 300 mg capsule 300 mg PO TID 01/19/22 04/28/24 04/27/24 History magnesium hydroxide 400 mg/5 mL 30 ml PO BID PRN Constipation 01/19/22 04/28/24 Unknown History oral suspension polyethylene glycol 3350 17 4 g PO DAILY 01/19/22 04/28/24 04/27/24 History gram/dose oral powder (Miralax) omeprazole 20 mg capsule,delayed 20 mg PO DAILY 05/12/22 04/28/24 04/27/24 History release lacosamide 200 mg tablet (Vimpat) 200 mg PO BID 05/13/22 04/28/24 04/27/24 History melatonin 5 mg tablet 5 mg PO BEDTIME 05/13/22 04/28/24 04/27/24 History simethicone 80 mg chewable tablet 80 mg PO QID PRN Gastrointestinal 05/13/22 04/28/24 04/27/24 History Spasms Or Cramping venlafaxine 150 mg 150 mg PO DAILY 05/13/22 04/28/24 04/27/24 History capsule,extended release 24 hr (Effexor XR) baclofen 20 mg tablet 20 mg PO BID 11/08/23 04/28/24 04/27/24 History baclofen 20 mg tablet 40 mg PO BEDTIME 11/08/23 04/28/24 04/27/24 History levetiracetam 1,000 mg tablet 1,500 mg PO BID 11/08/23 04/28/24 04/27/24 History (Keppra) nystatin 100,000 unit/gram topical 1 applic topical QAM PRN SCALY AREA 12/19/23 04/28/24 04/27/24 History cream albuterol sulfate 90 mcg/actuation 1 inh inhalation Q8H PRN Shortness 04/04/24 04/28/24 Unknown History aerosol inhaler (Ventolin HFA) Of Breath ondansetron HCl 4 mg tablet 4 mg PO Q4H PRN Nausea And Vomiting 04/04/24 04/28/24 03/30/24 History acetaminophen 325 mg tablet 650 mg PO Q6H Pain 04/09/24 04/28/24 04/08/24 History levetiracetam 500 mg tablet 500 mg PO BID 04/09/24 04/28/24 04/27/24 History sennosides 8.6 mg-docusate sodium 2 tab PO BID #120 tabs 04/13/24 04/28/24 04/27/24 Rx 50 mg tablet (Stool Softener-Laxative) piperacillin-tazobactam 3.375 gram 3.375 g IV Q8H 04/23/24 04/28/24 04/27/24 History intravenous solution tramadol 50 mg tablet 50 mg PO Q6H PRN Pain 04/23/24 04/28/24 04/27/24 History methenamine hippurate 1 gram tablet 1 g PO QID 04/28/24 04/28/24 04/27/24 History sodium phosphates 19 gram-7 118 ml WY DAILY PRN Constipation 04/28/24 04/28/24 Unknown History gram/118 mL enema (Fleet Enema) Allergies Allergy/AdvReac Type Severity Reaction Status Date / Time No Known Allergies Allergy Verified 04/23/24 13:30 PFSH Acute 2 PFSH: Medical History Tobacco use Sacral decubitus ulcer Presence of urostomy 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 resident Asthma Generalized epilepsy Gallstone pancreatitis Struvite kidney stones Onychodystrophy Depression, endogenous Staghorn renal calculus Multiple sclerosis Seizure Anxiety Depression Hypertension Cerebellar tremor Anemia GERD (gastroesophageal reflux disease) Plantar callus Surgical History Status post laparoscopic cholecystectomy (07/16/21) S/P ERCP H/O cervical biopsy History of biopsy of bladder H/O: hysterectomy History of urostomy Family History Family/Other Cancer Hyperlipidemia Hypertension Denies family history of Diabetes CAD (coronary artery disease) Clotting disorder Dementia Psychiatric illness Chronic kidney disease (CKD) Suicide Anesthesia complication Bleeding disorder Family history of premature coronary artery disease Lung disease Stroke Social History Smoking and tobacco/nicotine status: unknown if used tobacco/nicotine Alcohol intake: never Substance/Drug Use: never Marital status: Current occupational status: retired and disabled Vitals/I&O/Wt Last Vital Signs Temp 98.9 F 04/28/24 04:24 Pulse 148 H 04/28/24 15:43 Resp 16 04/28/24 15:30 BP 126/82 04/28/24 15:43 Pulse Ox 92 04/28/24 15:43 04/28/24 04/28/24 04/28/24 06:59 14:59 22:59 Intake Total 0 / 0 50 / 50 Balance 0 / 0 50 / 50 Weight last 48 hrs Weight 90.718 kg Physical Exam 2 Const: COMMON NORMALS: patient oriented x3 and alert GENERAL APPEARANCE: c ooperative ORIENTATION/CONSCIOUSNESS: Yes awake HENMT: COMMON NORMALS: oropharynx normal Neck/C-Spine: COMMON NORMALS: no JVD Resp: COMMON NORMALS: normal respiratory effort and clear to auscultation bilaterally AUSCULTATION: clear to auscultation bilaterally Cardio: COMMON NORMALS: no JVD, regular rhythm, S1 normal heart sound present, S2 normal heart sound present and No murmurs present (Cardio) RHYTHM: regular rhythm HEART SOUNDS: S1 normal heart sound present and S2 normal heart sound present GI: COMMON NORMALS: Normal to inspection, nondistended, normoactive bowel sounds present, Soft to palpation and non-tender PALPATION: Yes Soft to palpation : OTHER: Urostomy Extremity: COMMON NORMALS: no joint enlargement and no pedal edema Neuro: COMMON NORMALS: patient oriented x3 and moves all extremities S ENSORIUM/ORIENTATION: Yes alert Data 04/28/24 04:56 04/28/24 04:56 Micro: Microbiology 04/28/24 07:10 Blood Culture - Preliminary Blood SPECIMEN COLLECTED 04/28/24 07:07 Blood Culture - Preliminary Blood SPECIMEN COLLECTED A&P Assessment and plan (1) Sepsis: Sepsis with malaise, nausea, vomiting, with sinus tachycardia 120s, leukocytosis 13.21, with transaminitis, AST 264, ALT 34, alk phos worse than usual 154, possible UTI WBC 21-50 after recent hospitalization for urinary tract infection with ESBL Proteus, possible left lower lobe pneumonia versus atelectasis with bronchiectasis, additionally PICC line in place, removed, tip sent for culture to assess for any central catheter infection. Blood culture sent, assess for bacteremia. Lactic acid 1.1. Reviewed vitals, CBC, CMP, UA, respiratory viral panel, hepatitis panel sent. Reviewed abdomen x-ray, chest x-ray, CT abdomen pelvis, liver ultrasound, MRCP. Reviewed ER provider note, discussed with ER provider. At this time not suggestive of acute cholangitis. He is status post cholecystectomy. Possible mild cholestasis, but no CBD dilation, no suggestion of acute infection. Will check CK. Follow-up viral studies. No sign of bowel obstruction, but possible pseudoobstruction with severe constipation and fecal impaction. Empiric antibiotic coverage currently with imipenem, monitor for risk of seizure, vancomycin. Monitor for risk of kidney injury. (2) Pneumonia: Possible left lower lobe pneumonia discussed with her, versus atelectasis with bronchiectasis, empiric antibiotic coverage with imipenem, linezolid with possible hospital-acquired pneumonia with recent hospitalization. Possible aspiration pneumonia with vomiting. Sputum culture if possible. Obtain MRSA PCR. Obtain urinary bacterial antigens. Legionella antigen. (3) Transaminitis: Does not appear to have signs of cholangitis, possible mild cholestasis perhaps with sepsis, vomiting, dehydration. Possible hepatotoxicity, assess Keppra level. Viral hepatitis studies sent. Respiratory viral panel sent. Follow-up. Reviewed liver ultrasound, MRCP. Repeat liver parameters. Check INR. Check CK. She does take acetaminophen. Discussed with her to discontinue for now. Reassess liver parameters. Monitor mental status, liver function, monitor for acute liver failure. (4) Constipation: Constipation with fecal impaction suspected. Dulcolax WY nightly. MiraLAX twice daily. Gentle IV hydration. Monitor for risk of fluid overload. Plan Multiple sclerosis, continue baclofen, gabapentin Lower extremity paralysis, Pressure sore, frequent repositioning. Oral intake as tolerating. Add protein supplements. Urostomy, Epilepsy, check Keppra level, continue medication. Lacosamide. Recurrent UTI: Hold methenamine while on antibiotics Recent hospitalization earlier this month with sepsis, UTI, acute encephalopathy Smoking: Discussed medical cessation for 4 minutes. She has tried quitting, but it has been difficult, is still smoking. She is agreeable to nicotine supplementation while in the hospital. Attestations 2 Medical Necessity Statement*: Admission over 2 midnights anticipated for assessment of management of sepsis, possible pneumonia, possible complicated urinary tract infection with urostomy, recent UTI with resistant organism complicated by encephalopathy, assess for possible PICC line infection, and a lady with underlying multiple sclerosis, paraplegia, additional companies as above. Diagnoses Sepsis A41.9 Pneumonia J18.9 Transaminitis R74.01 Constipation K59.00
--- NOTE | 2024-04-28 18:01 | ECG_ITS ---
[facility] ([facility]) Test Date: 2024-04-28 Pat Name: Teresa Moraes Department: Room: 252 Gender: Female Installment Agent: : [id number] Requested By: Smith Jaramillo Order Number: [id number] Ishan MD: Simone Paul M.D. Measurements Intervals [place] Rate: 134 P: 74 [place]: 143 QRS: -70 QRSD: 94 T: 67 QT: 296 QTc: 443 Interpretive Statements SINUS TACHYCARDIA LEFT ANTERIOR FASCICULAR BLOCK [QRS AXIS <= -45, QR IN I, RS IN II] POSSIBLE ANTERIOR MYOCARDIAL INFARCTION , OF INDETERMINATE AGE [30 ms Q WAVE IN V3/V4, OR R < 0.2 mV IN V4] Compared to ECG 04/09/2024 06:58:23 Myocardial infarct finding now present Incomplete right bundle-branch block no longer present T-wave abnormality no longer present Electronically Signed On 04-30-2024 20:17:21 HELP DESK TECHNICIAN by Simone Paul M.D. [email or web address]
[2024-04-28 18:04] LABS: Adenovirus Not Detected (NOT DETECT); Chlamydia Pneumoniae Not Detected (NOT DETECT); Coronavirus 229E,HKU1,NL63,OC4 Not Detected (NOT DETECT); Human Metapneumovirus Not Detected (NOT DETECT); Human Rhinovirus/Enterovirus Not Detected (NOT DETECT); Influenza A Not Detected (NOT DETECT); Influenza A H1 Not Detected (NOT DETECT); Influenza A H1-2009 Not Detected (NOT DETECT); Influenza A H3 Not Detected (NOT DETECT); Influenza B Not Detected (NOT DETECT); Mycoplasma Pneumoniae Not Detected (NOT DETECT); Parainfluenza Virus Type 1 Not Detected (NOT DETECT); Parainfluenza Virus Type 2 Not Detected (NOT DETECT); Parainfluenza Virus Type 3 Not Detected (NOT DETECT); Parainfluenza Virus Type 4 Not Detected (NOT DETECT); Respiratory Syncytial Virus A Not Detected (NOT DETECT); Respiratory Syncytial Virus B Not Detected (NOT DETECT); SARS-COV-2 Not Detected (NOT DETECT)
[2024-04-28] MEDS: polyethylene glycol 3350 Pkt 17 gm PO (18:34)
[2024-04-28] MEDS: sodium chloride 0.9% 1,000 ML 75 ML IV (18:34)
[2024-04-28] MEDS: bisacodyl 10 mg Supp PR (18:34)
[2024-04-28] MEDS: nicotine 21 mg Patch 1 PATCH TRANSDERMA (18:34)
[2024-04-28] MEDS: vancomycin 2,000 MG/400 ML PIGGYBACK 200 MG IV (18:45)
[2024-04-28] MEDS: sodium chloride 0.9% 500 ML IV (19:18)
[2024-04-28] MEDS: baclofen 10 mg Tablet 40 MG PO (21:05)
[2024-04-28] MEDS: gabapentin 300 mg Capsule PO (21:05)
[2024-04-28 21:32] LABS: Creatine Phosphokinase 1845 U/L (26-192)
[2024-04-28] MEDS: MEROPENEM 2,000 MG in sodium chloride 0.9% (plus) 50 ML 100 MG IV (22:24)
[2024-04-29] VITALS (10 sets, daily range): BP systolic 70–111; BP diastolic 48–67; PULSE 84–130; RESP 15–19; TEMP 36.7–38.4; O2SAT 94–99
[2024-04-29 04:43] LABS: MRSA PCR OZH (swab) MRSA Detected (Not Detecte)
[2024-04-29] MEDS: MEROPENEM 2,000 MG in sodium chloride 0.9% (plus) 50 ML 100 MG IV ×2 (06:30→16:32)
--- NOTE | 2024-04-29 06:49 | PC.NURSE ---
shift note. pt had large bowel movement this shift. open area to sacral/buttock area cleaned with sterile water and guaze due to fragility of skin around wound
--- NOTE | 2024-04-29 06:51 | PC.NURSE ---
also notified of PT nasal swab + for MRSA
[2024-04-29 07:13] LABS: Basophils % 0.2 %; Eosinophils % 0.1 %; Hematocrit 26.6 % (36-47); Lymphocytes # 1.2 10^3/uL (0.8-4.8); Lymphocytes % 6.6 %; Mean Corpuscular HGB Conc 30.8 g/dL (30-55); Mean Corpuscular Volume 87.5 fl (85-98); Mean Platelet Volume 8.8 fL (7.4-10.4); Monocytes # 2.1 10^3/uL (0.2-0.9); Monocytes % 11.6 %; Neutrophils # 14.67 10^3/uL (1.8-7.7); Neutrophils % 81.1 %; Nucleated Red Blood Cells % 0 %; Platelet Count 525 10^3/cmm (157-399); Red Blood Count 3.04 10^6/uL (3.85-5.65); Red Cell Distribution Width 17.4 % (12.1-15.1); White Blood Count 18.07 10^3/uL (3.29-11.43)
[2024-04-29] MEDS: vancomycin 1,500 MG/300 ML PIGGYBACK 200 MG IV ×2 (07:27→18:43)
[2024-04-29 07:30] LABS: Alanine Aminotransferase 25 U/L (0-33); Albumin Level 2.3 g/dL (3.5-5.2); Alkaline Phosphatase 140 U/L (35-105); Anion Gap 17.1 (5-19); Aspartate Amino Transferase 107 U/L (0-32); Blood Urea Nitrogen 9 mg/dL (6-20); Calcium 8.4 mg/dL (8.5-10.5); Carbon Dioxide 18 mmol/L (22-29); Chloride 106 mmol/L (98-107); Globulin 4.4 g/dL (1.3-4.6); Glomerular Filtration Rate 231.8 mL/min (90-130); Glucose 96 mg/dL (65-115); Magnesium 1.9 mg/dL (1.7-2.3); Osmolality Calculated 285 mOsm/kg (285-295); Potassium 3.1 mmol/L (3.5-5.1); Sodium 138 mmol/L (136-145); Total Bilirubin 0.2 mg/dL (0.15-1.2); Total Protein 6.7 g/dL (6.6-8.7)
[2024-04-29] MEDS: lacosamide 50 mg Tablet 200 MG PO ×2 (08:32→16:36)
[2024-04-29] MEDS: enoxaparin 40 mg/0.4 mL Syringe SUBCUT (08:32)
[2024-04-29] MEDS: polyethylene glycol 3350 Pkt 17 gm PO ×2 (08:32→16:35)
[2024-04-29] MEDS: baclofen 10 mg Tablet 20 MG PO ×2 (08:33→16:36)
[2024-04-29] MEDS: venlafaxine ER (24HR) 150 mg Capsule PO (08:33)
[2024-04-29] MEDS: gabapentin 300 mg Capsule PO ×2 (08:33→16:36)
[2024-04-29] MEDS: sodium chloride 0.9% 1,000 ML 75 ML IV (08:33)
--- NOTE | 2024-04-29 09:26 | PHA.VACGOAL ---
Vancomycin Goal - Goal Vancomycin Goal:: 15-20 mg/L Vancomycin Indication:: Pneumonia (SEPSIS) - Therapy Current therapy:: Meropenem Day of therpy:: Day []of [] . Actual body weight (kg): 140 lb 8 oz - Data Labs: WBC 18.07 10^3/uL (3.29-11.43) H 04/29/24 06:23 RBC 3.04 10^6/uL (3.85-5.65) L 04/29/24 06:23 Hgb 8.20 g/dL (11.27-16.99) L 04/29/24 06:23 Hct 26.6 % (36-47) L 04/29/24 06:23 MCV 87.5 fl (85-98) 04/29/24 06:23 MCH 27.0 pg (27-33) 04/29/24 06:23 MCHC 30.8 g/dL (30-55) 04/29/24 06:23 RDW 17.4 % (12.1-15.1) H 04/29/24 06:23 Sodium 138 mmol/L (136-145) 04/29/24 06:23 Potassium 3.1 mmol/L (3.5-5.1) L 04/29/24 06:23 Chloride 106 mmol/L (98-107) 04/29/24 06:23 Carbon Dioxide 18 mmol/L (22-29) L 04/29/24 06:23 Anion Gap 17.1 (5-19) 04/29/24 06:23 BUN 9 mg/dL (6-20) 04/29/24 06:23 Creatinine 0.3 mg/dL (0.5-0.9) L 04/29/24 06:23 GFR Calculation 231.8 mL/min (90-130) H 04/29/24 06:23 Last dialysis session:: N/A Treatment plan:: new consult Regimen:: LOADING DOSE OF 2g MAINTENANCE DOSE 1500 mg Q12H Follow up:: WILL CONTINUE TO MONITOR AND FOLLOW UP DAILY
[2024-04-29] MEDS: nicotine 21 mg Patch 1 PATCH TRANSDERMA (16:36)
[2024-04-29] MEDS: acetaminophen 325 mg Tablet 650 MG PO (16:36)
[2024-04-29] MEDS: sodium chloride 0.9% 500 ML 999 ML IV (20:43)
--- NOTE | 2024-04-29 21:04 | P.PN_ITS ---
Subjective 2 Subjective: She is feeling about similar, perhaps slightly better this morning. Vitals/I&O/Wt Last Vital Signs Temp 98.1 F 04/29/24 20:00 Pulse 84 04/29/24 20:00 Resp 19 H 04/29/24 20:00 BP 70/50 04/29/24 20:00 Pulse Ox 97 04/29/24 20:00 O2 Del Method Room Air 04/29/24 20:00 04/29/24 04/29/24 04/29/24 06:59 14:59 22:59 Intake Total 50 / 710 2565 / 2565 1640 / 4205 Output Total 825 / 825 Balance 50 / 160 1740 / 1740 1640 / 3380 Weight last 48 hrs Weight 63.73 kg Weight 60.464 kg Weight 90.718 kg Physical Exam 2 Const: COMMON NORMALS: patient oriented x3 and alert GENERAL APPEARANCE: c ooperative ORIENTATION/CONSCIOUSNESS: Yes awake HENMT: COMMON NORMALS: oropharynx normal Neck/C-Spine: COMMON NORMALS: no JVD Resp: COMMON NORMALS: normal respiratory effort and clear to auscultation bilaterally AUSCULTATION: clear to auscultation bilaterally Cardio: COMMON NORMALS: no JVD, regular rhythm, S1 normal heart sound present, S2 normal heart sound present and No murmurs present (Cardio) RHYTHM: regular rhythm HEART SOUNDS: S1 normal heart sound present and S2 normal heart sound present GI: COMMON NORMALS: Normal to inspection, nondistended, normoactive bowel sounds present, Soft to palpation and non-tender PALPATION: Yes Soft to palpation : OTHER: Urostomy Extremity: COMMON NORMALS: no joint enlargement and no pedal edema Neuro: COMMON NORMALS: patient oriented x3 and moves all extremities S ENSORIUM/ORIENTATION: Yes alert Data 04/29/24 06:23 04/29/24 06:23 Micro: Microbiology 04/28/24 14:32 Catheter Tip Culture - Preliminary Picc Line 04/28/24 07:34 Urine Culture - Preliminary Urine,Clean Catch Yeast species 04/28/24 07:34 Legionella Urinary Antigen - Final Urine,Clean Catch Bacterial Antigens - Final 04/28/24 07:10 Blood Culture - Preliminary Blood NEGATIVE TO DATE 04/28/24 07:07 Blood Culture - Preliminary Blood NEGATIVE TO DATE A&P Assessment and plan (1) Sepsis: Leukocytosis noted some worsening today, some persistent sinus tachycardia. Spiked a fever today up to 101.1. Reviewed MRSA PCR, detected. Reviewed blood culture, so far negative, reviewed PICC line tip culture, so far no growth. Urine bacterial antigens, negative, urine Legionella antigen negative. I reviewed urine culture, is growing 70-80,000 yeast species. With sepsis, will add Diflucan. Continue broad-spectrum antibiotic coverage with imipenem, vancomycin. Monitor for risk of seizure, risk of RAFA. Additionally does have prior urine culture positive for Pseudomonas with intermediate sensitivity to imipenem. Will add ciprofloxacin. With episode of hypotension, receiving bolus 500 mL. Hold baclofen, gabapentin. Liver parameters with improvement today in AST and ALT. On presentation, Sepsis with malaise, nausea, vomiting, with sinus tachycardia 120s, leukocytosis 13.21, with transaminitis, AST 264, ALT 34, alk phos worse than usual 154, possible UTI WBC 21-50 after recent hospitalization for urinary tract infection with ESBL Proteus, possible left lower lobe pneumonia versus atelectasis with bronchiectasis, additionally PICC line in place, removed, tip sent for culture to assess for any central catheter infection. Blood culture sent, assess for bacteremia. Lactic acid 1.1. Reviewed vitals, CBC, CMP, UA, respiratory viral panel, hepatitis panel sent. Reviewed abdomen x-ray, chest x- ray, CT abdomen pelvis, liver ultrasound, MRCP. Reviewed ER provider note, discussed with ER provider. At this time not suggestive of acute cholangitis. He is status post cholecystectomy. Possible mild cholestasis, but no CBD dilation, no suggestion of acute infection. Will check CK. Follow-up viral studies. No sign of bowel obstruction, but possible pseudoobstruction with severe constipation and fecal impaction. Empiric antibiotic coverage currently with imipenem, monitor for risk of seizure, vancomycin. Monitor for risk of kidney injury. (2) Pneumonia: Possible left lower lobe pneumonia discussed with her, versus atelectasis with bronchiectasis, empiric antibiotic coverage with imipenem, linezolid with possible hospital-acquired pneumonia with recent hospitalization. Possible aspiration pneumonia with vomiting. Sputum culture if possible. Noted +ve MRSA PCR. Obtain urinary bacterial antigens. Legionella antigen. (3) Transaminitis: With improvement. Repeat CMP. Negative viral hepatitis. Negative respiratory viral panel. With noted rhabdomyolysis, CK 1845. Received hydration. Recheck CK. Does not appear to have signs of cholangitis, possible mild cholestasis perhaps with sepsis, vomiting, dehydration. Possible hepatotoxicity, assess Keppra level. She does take acetaminophen. Discussed with her to discontinue for now. Reassess liver parameters. Monitor mental status, liver function, monitor for acute liver failure. (4) Constipation: Had several bowel movements today. Continue bowel regimen. Constipation with fecal impaction suspected. Dulcolax SD nightly. MiraLAX twice daily. Gentle IV hydration. Monitor for risk of fluid overload. Plan Multiple sclerosis, hold baclofen, gabapentin Lower extremity paralysis, Pressure sore, frequent repositioning. Oral intake as tolerating. Add protein supplements. Urostomy, Epilepsy, check Keppra level, continue medication. Lacosamide. Recurrent UTI: Hold methenamine while on antibiotics Recent hospitalization earlier this month with sepsis, UTI, acute encephalopathy Smoking: She has tried quitting, but it has been difficult, is still smoking. She is agreeable to nicotine supplementation while in the hospital. Attestations 2 Medical Necessity Statement*: Continue admission for assessment management of sepsis, complicated UTI, possible pneumonia in a lady with multiple sclerosis, epilepsy, MRSA conization and additional comorbidities as above. and High MDM includes described risk of complication, morbidity or mortality of management as documented Diagnoses Sepsis A41.9 Pneumonia J18.9 Transaminitis R74.01 Constipation K59.00
[2024-04-29 21:27] LABS: Lactate (Lactic Acid level) 0.7 mmol/L (0.5-2.2)
[2024-04-29] MEDS: ciprofloxacin 400 MG/200 ML PREMIX 200 MG IV (21:34)
[2024-04-29] MEDS: midodrine 5 mg TABLET 10 MG PO (21:59)
[2024-04-29] MEDS: fluconazole premix 200 MG/100 ML PREMIX 100 MG IV (22:43)
[2024-04-30] VITALS (29 sets, daily range): BP systolic 86–118; BP diastolic 56–80; PULSE 98–124; RESP 14–27; TEMP 36.6–37.8; O2SAT 92–100
[2024-04-30] MEDS: MEROPENEM 2,000 MG in sodium chloride 0.9% (plus) 50 ML 100 MG IV ×3 (00:38→15:47)
--- NOTE | 2024-04-30 03:34 | ECG_ITS ---
[employer] Test Date: 2024-04-30 Pat Name: Teresa Moraes Department: Room: 252 Gender: Female Taker Down: : 1970 Requested By: Rich Hebert Order Number: [id number] Ishan MD: Simone Paul M.D. Measurements Intervals [place] Rate: 109 P: -87 LA: 109 QRS: -62 QRSD: 70 T: 29 QT: 217 QTc: 293 Interpretive Statements SINUS TACHYCARDIA WITH OCCASIONAL SUPRAVENTRICULAR PREMATURE COMPLEXES LEFT AXIS DEVIATION [QRS AXIS < -30] LOW QRS VOLTAGE IN PRECORDIAL LEADS [QRS DEFLECTION < 1.0 mV IN CHEST LEADS] POSSIBLE RIGHT VENTRICULAR CONDUCTION DELAY [RSR (QR) IN V1/V2] Compared to ECG 04/28/2024 18:34:09 Junctional tachycardia now present Left-axis deviation now present Low QRS voltage now present Sinus tachycardia no longer present Left anterior fascicular block no longer present Myocardial infarct finding still present Electronically Signed On 04-30-2024 20:06:55 [employer] by Simone Paul M.D. [email or web address]
--- NOTE | 2024-04-30 04:54 | ECG_ITS ---
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 Measurements Intervals [place] Rate: 100 P: -86 ME: 114 QRS: -61 QRSD: 73 T: 24 QT: 241 QTc: 312 Interpretive Statements SINUS TACHYCARDIA LOW QRS VOLTAGE IN PRECORDIAL LEADS [QRS DEFLECTION < 1.0 mV IN CHEST LEADS] POSSIBLE RIGHT VENTRICULAR CONDUCTION DELAY [RSR (QR) IN V1/V2] INFERIOR MYOCARDIAL INFARCTION , PROBABLY OLD [40+ ms Q WAVE AND/OR ST/T ABNORMALITY IN II/aVF] ANTEROLATERAL MYOCARDIAL INFARCTION , OF INDETERMINATE AGE [40+ ms Q WAVE IN I/aVL/V3-V6] Compared to ECG 04/30/2024 03:34:05 Left-axis deviation no longer present Myocardial infarct finding still present Electronically Signed On 04-30-2024 20:06:18 [employer] by Simone Paul M.D. [email or web address]
[2024-04-30 05:51] LABS: Alanine Aminotransferase 19 U/L (0-33); Albumin Level 2.1 g/dL (3.5-5.2); Alkaline Phosphatase 126 U/L (35-105); Anion Gap 14.6 (5-19); Aspartate Amino Transferase 55 U/L (0-32); Blood Urea Nitrogen 7 mg/dL (6-20); Calcium 7.7 mg/dL (8.5-10.5); Carbon Dioxide 17 mmol/L (22-29); Chloride 108 mmol/L (98-107); Creatinine Clr Calc Pharmacy 327.9043; Globulin 3.5 g/dL (1.3-4.6); Glomerular Filtration Rate 370.1 mL/min (90-130); Glucose 95 mg/dL (65-115); Osmolality Calculated 282 mOsm/kg (285-295); Sodium 137 mmol/L (136-145); Total Bilirubin 0.2 mg/dL (0.15-1.2); Total Protein 5.6 g/dL (6.6-8.7)
[2024-04-30 05:56] LABS: Basophils # 0.1 10^3/uL (0.0-0.1); Basophils % 0.3 %; Creatine Phosphokinase 461 U/L (26-192); Eosinophils % 0.2 %; Hematocrit 25.6 % (36-47); Lymphocytes # 1.4 10^3/uL (0.8-4.8); Lymphocytes % 7.1 %; Mean Corpuscular HGB Conc 29.7 g/dL (30-55); Mean Corpuscular Hemoglobin 26.7 pg (27-33); Mean Corpuscular Volume 89.8 fl (85-98); Mean Platelet Volume 9.4 fL (7.4-10.4); Monocytes # 1.6 10^3/uL (0.2-0.9); Monocytes % 8.3 %; Neutrophils # 15.94 10^3/uL (1.8-7.7); Neutrophils % 83.6 %; Nucleated Red Blood Cells % 0 %; Platelet Count 479 10^3/cmm (157-399); Potassium 2.6 mmol/L (3.5-5.1); Red Blood Count 2.85 10^6/uL (3.85-5.65); Red Cell Distribution Width 17.4 % (12.1-15.1); Troponin(5th) Baseline 2679 ng/L (0-10); White Blood Count 19.07 10^3/uL (3.29-11.43)
--- NOTE | 2024-04-30 05:58 | USCV_ITS ---
Teresa Moraes Age: 54 Gender: F : 1970 Exam Date: 04/30/2024 08:42 Ordering Phys: Rich Hebert MD Technologist: Exam Location: [facility] – [place] Indication: ? mi BP: 101 / 64 HR: 137 Rhythm: Sinus Technical Quality: Adequate MEASUREMENTS (Male / Female) Normal Values 2D ECHO LV Diastolic Diameter PLAX 5.6 cm 4.2 - 5.9 / 3.9 - 5.3 cm IVS Diastolic Thickness 1.0 cm 0.6 - 1.0 / 0.6 - 0.9 cm IVS Systolic Thickness 1.0 cm LVPW Diastolic Thickness 1.2 cm 0.6 - 1.0 / 0.6 - 0.9 cm LVPW Systolic Thickness 1.5 cm LVOT Diameter 2.0 cm LV Ejection Fraction 2D Teich 34.2 % LV Ejection Fraction MOD 4C 41.0 % LV Ejection Fraction MOD 2C 32.9 % LV Ejection Fraction 2C AL 33.7 % LA Diameter 4.1 cm RA Systolic Volume 4C AL 86.6 ml RA Systolic Volume 4C MOD 81.3 ml Aorta at Sinotubular Diameter 3.5 cm IVC Diameter 1.8 cm M-MODE LA Ao Ratio MM 1.1 AV Cusp Separation MM 2.4 cm DOPPLER AV Peak Velocity 85.0 cm/s LVOT Peak Velocity 64.0 cm/s AV Area Cont Eq vti 3.0 cm squared AV Area Cont Eq pk 2.5 cm squared MV Peak Velocity 95.0 cm/s MV Area PHT 5.0 cm squared Mitral E to A Ratio 1.6 TV Peak Velocity 274.5 cm/s TR Peak Velocity 298.0 cm/s TR Peak Gradient 35.5 mmHg TV Peak E Velocity 91.0 cm/s PV Peak Velocity 100.0 cm/s FINDINGS Left Ventricle Severe diffuse hypokinesis of the mid and apical septum, anteroseptum, inferior and lateral wall segments. LV ejection fraction around 32%. Moderately dilated LV cavity Right Ventricle Possibly normal LV size ejection fraction Right Atrium Possibly of normal size Left Atrium Moderately increased left atrial size. Mitral Valve Mild-moderate mitral valve regurgitation. Aortic Valve No gross abnormalities noted Tricuspid Valve No gross abnormalities noted Pulmonic Valve Pulmonic valve not well visualized. Pericardium No pericardial effusion. Aorta Normal aortic annulus size. IVC Inferior vena cava not visualized. CONCLUSIONS Severe diffuse hypokinesia of the mid and apical septum, anteroseptum, inferior and lateral wall segments. LV ejection fraction around 32%. Moderately dilated LV cavity. Moderately increased left atrial size. Mild-moderate mitral valve regurgitation. There is no pericardial effusion. No obvious intracardiac masses. No similar previous studies are available for comparison Dr Yousuf Lorenzo MD [facility] (Electronically Signed) Final Date: 30 April 2024 19:04 S
--- NOTE | 2024-04-30 06:03 | USCV_ITS ---
Teresa Moraes Age: 54 Gender: F : 1970 Exam Date: 04/30/2024 07:51 Ordering Phys: Rich Hebert MD Technologist: MANDO Exam Location: [facility] – [place] Indication: Swelling HISTORY: Lower extremity swelling. PROCEDURES: Comparison:. 05/17/22 Venous duplex imaging was performed in bilateral lower extremities. The following venous structures were evaluated: common femoral vein, profunda vein, proximal portion of the greater saphenous vein, superficial femoral vein, and the popliteal vein. In addition, the posterior tibial and peroneal trunk were evaluated. Serial compression, augmentation maneuvers, and spectral Doppler flow evaluation were performed. FINDINGS: Examination was technically limited due to body habitus. No DVT seen in either lower extremity, right veins small caliber due to limb atrophy. CONCLUSIONS No DVT bilateral lower extremities. Dr. Dalia Kiser DO (Electronically Signed) Final Date: 30 April 2024 11:01 S
[2024-04-30] MEDS: heparin 5,000 unit/mL INJ 1 mL IVP (06:10)
[2024-04-30] MEDS: heparin drip 25,000 UNIT/500 ML PREMIX 18 UNIT IV (06:15)
[2024-04-30] MEDS: lidocaine 1% 5 ML in potassium chloride premix 100 ML 26.25 ML IV (06:20)
[2024-04-30] MEDS: potassium chloride ER 20 mEq Tablet PO (06:25)
[2024-04-30] MEDS: aspirin 81 mg EC Tablet PO (06:25)
[2024-04-30] MEDS: vancomycin 1,500 MG/300 ML PIGGYBACK 200 MG IV ×2 (07:40→19:58)
--- NOTE | 2024-04-30 07:47 | PC.NURSE ---
At approximately 0600 received orders for Asa, K+ po, K-rider, transfuse PRBC, heparin gtt, and heparin bolus. Initiated additional IV sites to facilitate transfusions ordered. At approximately 0603 received orders to transfer pt to CSU. Notified subwarehouse supervisor of need for CSU bed, CSU full pt will be transferred to ICU-4 as a CSU overflow. Report given to [employer] SCHULER regarding pt's critical lab status, new iv sites, along with initiation of k-rider and heparin gtt. Pt transferred to ICU.
[2024-04-30 07:48] LABS: Partial Thromboplastin Time 223.2 SECONDS (23.9-36.7)
--- NOTE | 2024-04-30 07:54 | PC.NURSE ---
PTT came back greater than 150. Dr. Hebert was notified and he ordered to pause heparin drip and recheck PTT in 4 hours.
[2024-04-30] MEDS: venlafaxine ER (24HR) 150 mg Capsule PO (09:07)
[2024-04-30] MEDS: lacosamide 50 mg Tablet 200 MG PO ×2 (09:07→17:33)
[2024-04-30] MEDS: ciprofloxacin 400 MG/200 ML PREMIX 200 MG IV (09:07)
[2024-04-30 10:03] LABS: Troponin 5 2HR 2540 ng/L (0-10); Troponin 5 2HR Delta -139 ABS# (0-10)
[2024-04-30] MEDS: pantoprazole 40 mg SDV IVP ×2 (10:58→21:57)
[2024-04-30] MEDS: sucralfate 1 gm Tablet PO ×3 (10:58→21:58)
[2024-04-30 11:18] LABS: Troponin 5 6HR Delta -340 ng/L (0-12)
[2024-04-30 11:20] LABS: Troponin 5 6HR 2339 ng/L (0-10)
[2024-04-30 11:21] LABS: Ferritin 253 ng/mL (15-150); Iron 8 ug/dL (37-145)
--- NOTE | 2024-04-30 12:23 | P.CONIM_ITS ---
Documented by User: Mary Villa NP 05/01/24 09:49 Providers/Reason For Consult 2 Consulting Physician/Specialty*: Yousuf Lorenzo MD Reason for Consult*: Elevated troponin Requesting Physician: Dr. Hebert Attending Physician: Rich Hebert MD Primary Care Provider: Tony Keys MD History of Present Illness History of Present Illness Teresa Moraes is a 54 year old female who came in to the ER from [facility] with a chief complaint of generalized abdominal pain with nausea and vomiting with sinus tachycardia 120s that started 3 days ago. At that time there was concern of a small bowel obstruction due to history of this in the past. She has paraplegia with a history of epilepsy neurogenic bladder and urostomy and MS. She is not ambulatory. She had a CT of her abdomen pelvis that ruled out bowel obstruction. She also was found to have possible pneumonia in the left lower lobe. White cell count is high at 19. She was diagnosed with septic pneumonia. IV antibiotics were started for empiric coverage. She was actually recently hospitalized earlier this month with sepsis UTI and encephalopathy. At the time of my visit, she is alert and orientedx4. Apparently, patient had some chest pain last night. She is denying that this ever occurred, but a troponin was done that was 2679 at baseline, at 2540 at 120 minutes, 2339 at 6 hours with a negative delta troponin. EKG was performed that showed junctional tachycardia rate of 109 with q waves in anteriolateral leads. Compared to previous EKG, junctional tachycardia now present with left-axis deviation. No acute ischemic changes. At this time she states she has never had any issues with chest pain. Current heart rate at 111. She has low grade fever 99.6. Blood pressure stable but has been soft. She states nausea and vomiting has resolved. Patient's medical history includes acute anemia pneumonia sacral decubitus ulcer seizure disorder MS paraplegia tobacco abuse hypertension, history of urostomy, history of UTIs, depression, small bowel obstruction. She denies any significant history of heart issues. Cardiac risk factors include hypertension, current smoker. She has no known cardiac history. Currently, she is on a heparin drip. Discussed this with Dr. Lorenzo. Due to her anemia of unknown etiology, he recommended loading with Plavix and stopping heparin drip. Review of Systems 2 Narrative: Consitutional: reports recent fever, denies chills, body aches, or changes in appetite Eyes: Denies changes in vision Card: Denies chest pain, palpitations, irregular heart rhythm, edema, syncope, shortness of breath, orthopnea Resp: Denies shortness of breath, denies hemoptysis, denies cough GI: denies abdominal pain, Reports recent nausea or vomiting, denies blood in stool : denies blood in urine, denies dysuria Musc: Denies extremity pain, denies limited range of motion or recent injury Skin: Denies rash, lesions, or wounds, denies changes to skin color Neuro: Denies nubmness in extremities, h/a, s/s of stroke Chris: Denies easy bruiding/bleeding Medications/Allergies Home Medications Medication Instructions Recorded Confirmed Last Taken Type loratadine 10 mg tablet 10 mg PO DAILY@08 03/02/21 04/28/24 04/27/24 History sodium phosphates 19 gram-7 118 ml [place] DAILY PRN Constipation 03/02/21 04/28/24 Unknown History gram/118 mL enema (Fleet Enema) potassium chloride 20 mEq 20 meq PO BID@08,17 04/20/21 04/28/24 04/27/24 History tablet,extended release guaifenesin 200 mg/5 mL oral liquid 500 mg PO Q4H PRN Cough 09/16/21 04/28/24 Unknown History Lactobacillus acidophilus 1 1,000 mmu cells PO BID 01/19/22 04/28/24 04/27/24 History billion cell capsule fluticasone 500 mcg-salmeterol 50 1 inh inhalation BID 01/19/22 04/28/24 04/27/24 History mcg/dose blistr powdr for inhalation (Advair Diskus) gabapentin 300 mg capsule 300 mg PO TID 01/19/22 04/28/24 04/27/24 History magnesium hydroxide 400 mg/5 mL 30 ml PO BID PRN Constipation 01/19/22 04/28/24 Unknown History oral suspension polyethylene glycol 3350 17 4 g PO DAILY 01/19/22 04/28/24 04/27/24 History gram/dose oral powder (Miralax) omeprazole 20 mg capsule,delayed 20 mg PO DAILY 05/12/22 04/28/24 04/27/24 History release lacosamide 200 mg tablet (Vimpat) 200 mg PO BID 05/13/22 04/28/24 04/27/24 History melatonin 5 mg tablet 5 mg PO BEDTIME 05/13/22 04/28/24 04/27/24 History simethicone 80 mg chewable tablet 80 mg PO QID PRN Gastrointestinal 05/13/22 04/28/24 04/27/24 History Spasms Or Cramping venlafaxine 150 mg 150 mg PO DAILY 05/13/22 04/28/24 04/27/24 History capsule,extended release 24 hr (Effexor XR) baclofen 20 mg tablet 20 mg PO BID 11/08/23 04/28/24 04/27/24 History baclofen 20 mg tablet 40 mg PO BEDTIME 11/08/23 04/28/24 04/27/24 History levetiracetam 1,000 mg tablet 1,500 mg PO BID 11/08/23 04/28/24 04/27/24 History (Keppra) nystatin 100,000 unit/gram topical 1 applic topical QAM PRN SCALY AREA 12/19/23 04/28/24 04/27/24 History cream albuterol sulfate 90 mcg/actuation 1 inh inhalation Q8H PRN Shortness 04/04/24 04/28/24 Unknown History aerosol inhaler (Ventolin HFA) Of Breath ondansetron HCl 4 mg tablet 4 mg PO Q4H PRN Nausea And Vomiting 04/04/24 04/28/24 03/30/24 History acetaminophen 325 mg tablet 650 mg PO Q6H Pain 04/09/24 04/28/24 04/08/24 History levetiracetam 500 mg tablet 500 mg PO BID 04/09/24 04/28/24 04/27/24 History sennosides 8.6 mg-docusate sodium 2 tab PO BID #120 tabs 04/13/24 04/28/24 04/27/24 Rx 50 mg tablet (Stool Softener-Laxative) piperacillin-tazobactam 3.375 gram 3.375 g IV Q8H 04/23/24 04/28/24 04/27/24 History intravenous solution tramadol 50 mg tablet 50 mg PO Q6H PRN Pain 04/23/24 04/28/24 04/27/24 History methenamine hippurate 1 gram tablet 1 g PO QID 04/28/24 04/28/24 04/27/24 History sodium phosphates 19 gram-7 118 ml [place] DAILY PRN Constipation 04/28/24 04/28/24 Unknown History gram/118 mL enema (Fleet Enema) Allergies Allergy/AdvReac Type Severity Reaction Status Date / Time No Known Allergies Allergy Verified 04/23/24 13:30 Current Medications Generic Name Dose Route Start Last Admin Trade Name Freq PRN Reason Stop Dose Admin Acetaminophen 650 mg 04/28/24 17:30 04/29/24 16:36 Acetaminophen 325 Mg Tablet PO 650 mg Q6H PRN Administration Mild/Mod Pain Or Temp >/= 101 Aspirin 81 mg 04/30/24 06:00 04/30/24 06:25 Aspirin 81 Mg Ec Tablet PO 81 mg DAILY BIJAN Administration Baclofen 40 mg 04/28/24 21:00 04/28/24 21:05 Baclofen 10 Mg Tablet PO 40 mg BEDTIME BIJAN Administration Baclofen 20 mg 04/29/24 09:00 04/29/24 16:36 Baclofen 10 Mg Tablet PO 20 mg BID BIJAN Administration Bisacodyl 10 mg 04/28/24 18:00 04/29/24 16:52 Bisacodyl 10 Mg Supp [place] Not Given QPM BIJAN Gabapentin 300 mg 04/28/24 21:00 04/29/24 16:36 Gabapentin 300 Mg Capsule PO 300 mg TID BIJAN Administration Meropenem 2,000 mg/ Sodium 50 mls @ 100 mls/hr 04/28/24 23:00 04/30/24 07:41 Chloride IV 100 mls/hr Q8H BIJAN Administration Protocol Vancomycin HCl 1,500 mg in 300 mls @ 200 mls/hr 04/29/24 07:00 04/30/24 07:40 Vancocin IV 200 mls/hr Q12H BIJAN Administration Fluconazole 200 mg in 100 mls @ 100 mls/hr 04/29/24 21:15 04/30/24 00:42 Diflucan Premix IV Infused Q24H BIJAN Infusion Ciprofloxacin/Dextrose 400 mg in 200 mls @ 200 mls/hr 04/29/24 21:15 04/30/24 09:07 Cipro IV 200 mls/hr Q12H BIJAN Administration Protocol Heparin Sodium/Sodium Chloride 25,000 unit in 500 mls @ 0 mls/hr 04/30/24 06:00 04/30/24 07:52 Heparin Drip IV 0 unit/kg/hr CONT BIJAN 0 mls/hr Titration Protocol Per Protocol Lacosamide 200 mg 04/29/24 09:00 04/30/24 09:07 Lacosamide 50 Mg Tablet PO 200 mg BID BIJAN Administration Nicotine 1 patch 04/28/24 19:00 04/29/24 16:36 Nicotine 21 Mg Patch TRANSDERMA 1 patch Q24H BIJAN Administration Pantoprazole Sodium 40 mg 04/30/24 10:45 04/30/24 10:58 Pantoprazole 40 Mg Sdv IVP 40 mg Q12H BIJAN Administration Polyethylene Glycol 17 gm 04/28/24 18:00 04/30/24 09:07 Polyethylene Glycol 3350 Pkt 17 Gm PO Not Given BID BIJAN Sucralfate 1 gm 04/30/24 10:45 04/30/24 10:58 Sucralfate 1 Gm Tablet PO 1 gm Q6H BIJAN Administration Venlafaxine HCl 150 mg 04/29/24 09:00 04/30/24 09:07 Venlafaxine Er (24hr) 150 Mg Capsule PO 150 mg DAILY BIJAN Administration PFSH Acute 2 PFSH: Medical History Tobacco use Sacral decubitus ulcer Presence of urostomy longterm resident Asthma Generalized epilepsy Gallstone pancreatitis Struvite kidney stones Onychodystrophy Depression, endogenous Staghorn renal calculus Multiple sclerosis Seizure Anxiety Depression Hypertension Cerebellar tremor Anemia GERD (gastroesophageal reflux disease) Plantar callus Surgical History Status post laparoscopic cholecystectomy (07/16/21) S/P ERCP H/O cervical biopsy History of biopsy of bladder H/O: hysterectomy History of urostomy Family History Family/Other Cancer Hyperlipidemia Hypertension Denies family history of Diabetes CAD (coronary artery disease) Clotting disorder Dementia Psychiatric illness Chronic kidney disease (CKD) Suicide Anesthesia complication Bleeding disorder Family history of premature coronary artery disease Lung disease Stroke Social History Smoking and tobacco/nicotine status: unknown if used tobacco/nicotine Alcohol intake: never Substance/Drug Use: never Marital status: Current occupational status: retired and disabled Vitals/I&O/Wt Last Vital Signs Temp 99.6 F 04/30/24 07:35 Pulse 114 H 04/30/24 09:30 Resp 27 H 04/30/24 09:30 BP 101/64 04/30/24 09:30 Pulse Ox 94 04/30/24 09:30 O2 Del Method Room Air 04/30/24 09:30 04/29/24 04/30/24 04/30/24 22:59 06:59 14:59 Intake Total 2340 / 4905 510 / 5415 509.1 / 509.1 Output Total 500 / 1325 600 / 1925 600 / 600 Balance 1840 / 3580 -90 / 3490 -90.9 / -90.9 Weight last 48 hrs Weight 144 lb 11.2 oz Weight 140 lb 8 oz Weight 133 lb 4.8 oz Physical Exam 2 Narrative: General: No apparent distress, healthy appearing, well nourished HENMT: normoceophalic Muskuloskeletal: no function of bilateral lower extremities Lymphatic: no lymphedema noted Respiratory: Normal respiratory effort, clear to auscultation bilaterally throughout all lung nicholas, no use of accessory muscles Cardio: No JVD, regular rate, tachycardic, S1 S2 normal, no murmurs, peripheral pulses 2+ radial palpated bilaterally GI: Normal to inspection, nondistended Extremities: no cyanosis or edema Neuro: Alert and oriented x4, no focal motor deficits Psych: Affect normal, denies suicidal ideation, mental status grossly normal Skin: No rashes or lesions noted, no wounds Data 05/01/24 11:09 05/01/24 05:16 Micro: Microbiology 04/28/24 14:32 Catheter Tip Culture - Final Picc Line 04/28/24 07:34 Urine Culture - Preliminary Urine,Clean Catch Yeast species 04/28/24 07:34 Legionella Urinary Antigen - Final Urine,Clean Catch Bacterial Antigens - Final 04/28/24 07:10 Blood Culture - Preliminary Blood NEGATIVE TO DATE 04/28/24 07:07 Blood Culture - Preliminary Blood NEGATIVE TO DATE Other data: Abdomen/pelvis CT IMPRESSION: 1. No bowel obstruction. Imaging findings suggestive of constipation and fecal impaction. 2. Bilateral nonobstructive kidney stones. 3. Unchanged patchy airspace opacity with bronchiectasis in the posterior left lower lobe, likely representing atelectasis. Atelectasis pneumonia can have this appearance. Clinical correlation recommended. EKG JUNCTIONAL TACHYCARDIA WITH OCCASIONAL SUPRAVENTRICULAR PREMATURE COMPLEXES LEFT AXIS DEVIATION [QRS AXIS < -30] LOW QRS VOLTAGE IN PRECORDIAL LEADS [QRS DEFLECTION < 1.0 mV IN CHEST LEADS] POSSIBLE RIGHT VENTRICULAR CONDUCTION DELAY [RSR (QR) IN V1/V2] ANTEROLATERAL MYOCARDIAL INFARCTION , OF INDETERMINATE AGE [40+ ms Q WAVE IN A&P Assessment and plan (1) Recent ST elevation myocardial infarction (STEMI): (2) Tobacco abuse: Patient is working on quitting. (3) Hypertension: Well controlled. Continue current medications. Qualifiers: Hypertension type: primary hypertension Qualified Code(s): I10 - Essential (primary) hypertension (4) Tachycardia: Could be multifactoral (infection, fever, anemia, increased demand, electrolyte imbalance) Current hemaglogin is 7.6. Current potassium is 2.6 and being replaced. Magnesium normal. (5) Hypokalemia: Plan The plan for this patient is to obtain an echo to look for wall motion abnormalities or reduced ejection fraction. Patient may need further workup for ischemia depending on results of this. Continue to monitor for chest pain or EKG changes. Thank you, Dr. Hbeert, for allowing us to care for this very pleasant 54 year old female. Coding Level of Care Code [address] elevation myocardial infarction (STEMI) Tobacco abuse Z72.0 Primary hypertension I10 Hypertension type: primary hypertension Tachycardia R00.0 Hypokalemia E87.6 Documented by User: Yousuf Lorenzo MD 05/01/24 17:09 Review of Systems 2 Narrative: CONSTITUTIONAL: Recent fever and chills, rigor UTI EYES: No blurring of vision or other visual disturbances lately. ENT: No hoarseness of voice, auditory disturbances or sore throat. CARDIOVASCULAR: As mentioned above. RESPIRATORY: Improved shortness of breath GASTROINTESTINAL: Hide nausea and vomiting, improving GENITOURINARY: No dysuria or hematuria. INTEGUMENTARY: No skin rashes or history of skin cancer. NEURO: Generalized seizure disorder, multiple sclerosis, paraplegia PSYCHIATRIC: No history of psychosis or major depression. HEMATOLOGIC: Anemia ENDOCRINE: No history of polyuria or polydipsia. MUSCULOSKELETAL: Wheelchair-bound ALLERGY/IMMUNOLOGY: As mentioned above. Medications/Allergies Home Medications Medication Instructions Recorded Confirmed Last Taken Type loratadine 10 mg tablet 10 mg PO DAILY@08 03/02/21 04/28/24 04/27/24 History sodium phosphates 19 gram-7 118 ml [place] DAILY PRN Constipation 03/02/21 04/28/24 Unknown History gram/118 mL enema (Fleet Enema) potassium chloride 20 mEq 20 meq PO BID@08,17 04/20/21 04/28/24 04/27/24 History tablet,extended release guaifenesin 200 mg/5 mL oral liquid 500 mg PO Q4H PRN Cough 09/16/21 04/28/24 Unknown History Lactobacillus acidophilus 1 1,000 mmu cells PO BID 01/19/22 04/28/24 04/27/24 History billion cell capsule fluticasone 500 mcg-salmeterol 50 1 inh inhalation BID 01/19/22 04/28/24 04/27/24 History mcg/dose blistr powdr for inhalation (Advair Diskus) gabapentin 300 mg capsule 300 mg PO TID 01/19/22 04/28/24 04/27/24 History magnesium hydroxide 400 mg/5 mL 30 ml PO BID PRN Constipation 01/19/22 04/28/24 Unknown History oral suspension polyethylene glycol 3350 17 4 g PO DAILY 01/19/22 04/28/24 04/27/24 History gram/dose oral powder (Miralax) omeprazole 20 mg capsule,delayed 20 mg PO DAILY 05/12/22 04/28/24 04/27/24 History release lacosamide 200 mg tablet (Vimpat) 200 mg PO BID 05/13/22 04/28/24 04/27/24 History melatonin 5 mg tablet 5 mg PO BEDTIME 05/13/22 04/28/24 04/27/24 History simethicone 80 mg chewable tablet 80 mg PO QID PRN Gastrointestinal 05/13/22 04/28/24 04/27/24 History Spasms Or Cramping venlafaxine 150 mg 150 mg PO DAILY 05/13/22 04/28/24 04/27/24 History capsule,extended release 24 hr (Effexor XR) baclofen 20 mg tablet 20 mg PO BID 11/08/23 04/28/24 04/27/24 History baclofen 20 mg tablet 40 mg PO BEDTIME 11/08/23 04/28/24 04/27/24 History levetiracetam 1,000 mg tablet 1,500 mg PO BID 11/08/23 04/28/24 04/27/24 History (Keppra) nystatin 100,000 unit/gram topical 1 applic topical QAM PRN SCALY AREA 12/19/23 04/28/24 04/27/24 History cream albuterol sulfate 90 mcg/actuation 1 inh inhalation Q8H PRN Shortness 04/04/24 04/28/24 Unknown History aerosol inhaler (Ventolin HFA) Of Breath ondansetron HCl 4 mg tablet 4 mg PO Q4H PRN Nausea And Vomiting 04/04/24 04/28/24 03/30/24 History acetaminophen 325 mg tablet 650 mg PO Q6H Pain 04/09/24 04/28/24 04/08/24 History levetiracetam 500 mg tablet 500 mg PO BID 04/09/24 04/28/24 04/27/24 History sennosides 8.6 mg-docusate sodium 2 tab PO BID #120 tabs 04/13/24 04/28/24 04/27/24 Rx 50 mg tablet (Stool Softener-Laxative) piperacillin-tazobactam 3.375 gram 3.375 g IV Q8H 04/23/24 04/28/24 04/27/24 History intravenous solution tramadol 50 mg tablet 50 mg PO Q6H PRN Pain 04/23/24 04/28/24 04/27/24 History methenamine hippurate 1 gram tablet 1 g PO QID 04/28/24 04/28/24 04/27/24 History sodium phosphates 19 gram-7 118 ml [place] DAILY PRN Constipation 04/28/24 04/28/24 Unknown History gram/118 mL enema (Fleet Enema) Allergies Allergy/AdvReac Type Severity Reaction Status Date / Time No Known Allergies Allergy Verified 04/23/24 13:30 PFSH Acute 2 PFSH: Medical History Tobacco use Sacral decubitus ulcer Presence of urostomy longterm resident Asthma Generalized epilepsy Gallstone pancreatitis Struvite kidney stones Onychodystrophy Depression, endogenous Staghorn renal calculus Multiple sclerosis Seizure Anxiety Depression Hypertension Cerebellar tremor Anemia GERD (gastroesophageal reflux disease) Plantar callus Surgical History Status post laparoscopic cholecystectomy (07/16/21) S/P ERCP H/O cervical biopsy History of biopsy of bladder H/O: hysterectomy History of urostomy Family History Family/Other Cancer Hyperlipidemia Hypertension Denies family history of Diabetes CAD (coronary artery disease) Clotting disorder Dementia Psychiatric illness Chronic kidney disease (CKD) Suicide Anesthesia complication Bleeding disorder Family history of premature coronary artery disease Lung disease Stroke Social History Smoking and tobacco/nicotine status: unknown if used tobacco/nicotine Alcohol intake: never Substance/Drug Use: never Marital status: Current occupational status: retired and disabled Physical Exam 2 Narrative: GENERAL: The patient is alert and oriented times three. Not in any acute distress. Somewhat lethargic HEENT: No significant pallor, icterus or lymphadenopathy.Oral cavity: There are no mucous membrane lesions. NECK: Trachea appears to be central. No masses noted. No JVD or thyromegaly appreciated. RESPIRATORY: Chest is symmetrical. No intercostals muscle retraction or any accessory muscle activation. There is no chest wall tenderness. Breath sounds are heard bilaterally. No rales or rhonchi heard. No evidence of any consolidation. BREASTS: Deferred. HEART: The heart sounds are normal. No S3 or S4. Short systolic murmur in the lower sternal border. No pericardial rub ABDOMEN: No vessel pulsations or distention. No tenderness. No organomegaly appreciated. Bowel sounds are normally heard. : Deferred. RECTAL: Deferred. LYMPHATIC: No lymphadenopathy noted in the neck. EXTREMITIES: Bilateral 2+ edema. Peripheral pulses are palpable but weak bilaterally in the lower extremities MUSCULOSKELETAL: No acute joint deformities or swelling SKIN: There are no significant rashes or ecchymosis NEUROPSYCHIATRIC: Patient is paraplegic. Alert and oriented x 3 Data 05/01/24 11:09 05/01/24 05:16 Other Labs: Laboratory Last Values WBC 19.07 10^3/uL (3.29-11.43) H 04/30/24 04:46 RBC 2.85 10^6/uL (3.85-5.65) L 04/30/24 04:46 Hgb 8.40 g/dL (11.27-16.99) L 04/30/24 17:47 Hct 27.8 % (36-47) L 04/30/24 17:47 MCV 89.8 fl (85-98) 04/30/24 04:46 MCH 26.7 pg (27-33) L 04/30/24 04:46 MCHC 29.7 g/dL (30-55) L 04/30/24 04:46 RDW 17.4 % (12.1-15.1) H 04/30/24 04:46 Plt Count 479 10^3/cmm (157-399) H 04/30/24 04:46 MPV 9.4 fL (7.4-10.4) 04/30/24 04:46 Neut % (Auto) 83.6 % 04/30/24 04:46 Lymph % (Auto) 7.1 % 04/30/24 04:46 [place] % (Auto) 8.3 % 04/30/24 04:46 Eos % (Auto) 0.2 % 04/30/24 04:46 Baso % (Auto) 0.3 % 04/30/24 04:46 Neut # (Auto) 15.94 10^3/uL (1.8-7.7) H 04/30/24 04:46 Lymph # (Auto) 1.4 10^3/uL (0.8-4.8) 04/30/24 04:46 [place] # (Auto) 1.6 10^3/uL (0.2-0.9) H 04/30/24 04:46 Eos # (Auto) 0.0 10^3/uL (0.0-0.8) 04/30/24 04:46 Baso # (Auto) 0.1 10^3/uL (0.0-0.1) 04/30/24 04:46 Nucleated RBC % (auto) 0 % 04/30/24 04:46 Nucleated RBCs # 0.0 /100WBC 04/30/24 04:46 ESR 49 mm/hr (0-15) H 04/30/24 04:46 PT 14.50 SECONDS (12.1-14.9) 04/29/24 06:23 INR 1.10 (0.8-1.2) 04/29/24 06:23 APTT 45.0 SECONDS (23.9-36.7) H D 04/30/24 12:17 Sodium 137 mmol/L (136-145) 04/30/24 04:46 Potassium 2.6 mmol/L (3.5-5.1) L* 04/30/24 04:46 Chloride 108 mmol/L (98-107) H 04/30/24 04:46 Carbon Dioxide 17 mmol/L (22-29) L 04/30/24 04:46 Anion Gap 14.6 (5-19) 04/30/24 04:46 BUN 7 mg/dL (6-20) 04/30/24 04:46 Creatinine 0.2 mg/dL (0.5-0.9) L 04/30/24 04:46 GFR Calculation 370.1 mL/min (90-130) H 04/30/24 04:46 Glucose 95 mg/dL (65-115) 04/30/24 04:46 Calculated Osmolality 282 mOsm/kg (285-295) L 04/30/24 04:46 Lactic Acid 1.1 mmol/L (0.5-2.2) 04/28/24 04:56 Lactate 0.7 mmol/L (0.5-2.2) 04/29/24 20:54 Calcium 7.7 mg/dL (8.5-10.5) L 04/30/24 04:46 Magnesium 1.9 mg/dL (1.7-2.3) 04/29/24 06:23 Iron 8 ug/dL (37-145) L 04/30/24 04:46 Ferritin 253 ng/mL (15-150) H 04/30/24 04:46 Total Bilirubin 0.2 mg/dL (0.15-1.2) 04/30/24 04:46 AST 55 U/L (0-32) H 04/30/24 04:46 ALT 19 U/L (0-33) 04/30/24 04:46 Alkaline Phosphatase 126 U/L (35-105) H 04/30/24 04:46 Creatine Kinase 461 U/L (26-192) H* 04/30/24 04:46 Troponin T Baseline 2679 ng/L (0-10) H* 04/30/24 04:46 Troponin T 120 Minute 2540 ng/L (0-10) H 04/30/24 09:25 Delta Troponin T -139 ABS# (0-10) L 04/30/24 09:25 Troponin T Hi Sens 6Hr 2339 ng/L (0-10) H 04/30/24 10:47 Troponin T Hi Sens 6Hr Delta -340 ng/L (0-12) L 04/30/24 10:47 C-Reactive Protein 196.4 mg/L (0.0-4.9) H 04/30/24 04:46 Total Protein 5.6 g/dL (6.6-8.7) L 04/30/24 04:46 Albumin 2.1 g/dL (3.5-5.2) L 04/30/24 04:46 Globulin 3.5 g/dL (1.3-4.6) 04/30/24 04:46 Lipase 44 U/L (13-60) 04/28/24 04:56 Procalcitonin 0.12 ng/mL (0-0.5) 04/30/24 04:46 Urine Color Yellow (Yellow) 04/28/24 07:34 Urine Appearance Clear (CLEAR) 04/28/24 07:34 Urine pH 7.0 (5-7) 04/28/24 07:34 Ur Specific [place] 1.013 (1.005-1.030) 04/28/24 07:34 Urine Protein Negative (Negative) 04/28/24 07:34 Urine Glucose (UA) Negative (Normal) 04/28/24 07:34 Urine Ketones Negative (Negative) 04/28/24 07:34 Urine Blood 1+ (Negative) A 04/28/24 07:34 Urine Nitrate Negative (Negative) 04/28/24 07:34 Urine Bilirubin Negative (Negative) 04/28/24 07:34 Urine Urobilinogen 0.2 mg/dL (Negative) 04/28/24 07:34 Ur Leukocyte Esterase Trace (Negative) A 04/28/24 07:34 Urine RBC 6-10 /hpf (0-2) 04/28/24 07:34 Urine WBC 21-50 /hpf (0-5) H 04/28/24 07:34 Ur Squamous Epith Cells 0-5 /hpf (0-5) 04/28/24 07:34 Amorphous Sediment Trace /hpf 04/28/24 07:34 Urine Bacteria None seen /hpf (NONE) 04/28/24 07:34 Hyaline Casts 5.77 /lpf 04/28/24 07:34 Urine Mucus Trace /hpf 04/28/24 07:34 Urine Yeast 2+ /hpf H 04/28/24 07:34 Nasal MRSA (PCR) Mrsa detected (Not Detecte) A 04/29/24 00:14 Vancomycin Trough 19.4 ug/mL (10-15) H 04/30/24 17:47 Adenovirus (PCR) Not detected (NOT DETECT) 04/28/24 15:39 C. pneumoniae DNA (PCR) Not detected (NOT DETECT) 04/28/24 15:39 C. difficile (PCR) Positive (Negative) H 04/30/24 15:01 Coronavirus (PCR) Negative (Negative) 04/28/24 06:35 Coronavirus 229E (PCR) Not detected (NOT DETECT) 04/28/24 15:39 Hepatitis A IgM Ab Non-reactive (Nonreactive) 04/28/24 04:56 Hep Bs Antigen Non-reactive (Nonreactive) 04/28/24 04:56 Hep B Core IgM Ab Non-reactive (Nonreactive) 04/28/24 04:56 Hepatitis C Antibody Non-reactive (Nonreactive) 04/28/24 04:56 Human Metapneumovir PCR Not detected (NOT DETECT) 04/28/24 15:39 Influenza A (H1) PCR Not detected (NOT DETECT) 04/28/24 15:39 Influenza A (PCR) Negative (Negative) 04/28/24 06:35 Influ A (H1/09) PCR Not detected (NOT DETECT) 04/28/24 15:39 Influenza A (H3) PCR Not detected (NOT DETECT) 04/28/24 15:39 Influenza Type A (PCR) Not detected (NOT DETECT) 04/28/24 15:39 Influenza Type B (PCR) Not detected (NOT DETECT) 04/28/24 15:39 M. pneumoniae (PCR) Not detected (NOT DETECT) 04/28/24 15:39 Parainfluenza 1 (PCR) Not detected (NOT DETECT) 04/28/24 15:39 Parainfluenza 2 (PCR) Not detected (NOT DETECT) 04/28/24 15:39 Parainfluenza 3 (PCR) Not detected (NOT DETECT) 04/28/24 15:39 Parainfluenza 4 (PCR) Not detected (NOT DETECT) 04/28/24 15:39 RSV (PCR) Negative (Negative) 04/28/24 06:35 RSV Type A (PCR) Not detected (NOT DETECT) 04/28/24 15:39 RSV Type B (PCR) Not detected (NOT DETECT) 04/28/24 15:39 Entero/Rhino (PCR) Not detected (NOT DETECT) 04/28/24 15:39 SARS-CoV-2 (PCR) Not detected (NOT DETECT) 04/28/24 15:39 Blood Type A Positive 04/30/24 06:59 Rho(D) Type Rh positive 04/30/24 06:59 Antibody Screen Positive 04/30/24 06:59 Antibody Identification Anti-C Anti-e Anti-Blanca 04/30/24 06:59 Antibody Identification Anti-C Anti-e Anti-Blanca 04/30/24 06:59 Antibody Identification Anti-C Anti-e Anti-Blanca 04/30/24 06:59 Crossmatch See Detail 04/30/24 06:59 A&P Assessment and plan (1) Recent ST elevation myocardial infarction (STEMI): The patient's the EKG is suggestive of recent ST elevation PR involving the anterolateral wall. She seems to have persistent ST elevation since hospital admission. Currently she has no chest pain. She may be treated with IV heparin, Plavix and aspirin. Because of the hypotension, may hold off on any blood pressure lowering medications. Will review the echocardiogram to decide on further management. (2) Tobacco abuse: (3) Hypertension: Well controlled. Continue current medications. Patient seems having episodes of hypotension Qualifiers: Hypertension type: primary hypertension Qualified Code(s): I10 - Essential (primary) hypertension (4) Tachycardia: Could be multifactoral (infection, fever, anemia, increased demand, electrolyte imbalance) Current hemaglogin is 7.6. Current potassium is 2.6 and being replaced. Magnesium normal. The LV function is not known. Systolic dysfunction also could be a possibility. Patient seems to be oxygenating well on room air. Does not appears to be in heart failure at this time (5) Hypokalemia: This is being corrected. Will recheck the potassium. Apparently this patient had episodes of hypokalemia in the past. This needs to be closely monitored. Plan This patient may be treated with IV heparin, p.o. aspirin, Plavix, low-dose of beta-eva, if the blood pressure tolerates. Also may be started on a statin. Echocardiogram would be helpful to evaluate LV function and rule out any other abnormalities. Patient may not be a candidate for any invasive notes or procedures at this time in view of the ongoing sepsis and fairly asymptomatic state. Based on the clinical progress and the results of the above, further recommendations will be made. Thank for the opportunity to evaluate this patient and make these recommendations Consult Attestations 2 Medical Necessity Statement: Patient requires continued hospital stay for close monitoring and further management Coding Level of Care Code [address] elevation myocardial infarction (STEMI) Tobacco abuse Z72.0 Primary hypertension I10 Hypertension type: primary hypertension Tachycardia R00.0 Hypokalemia E87.6
--- NOTE | 2024-04-30 13:08 | P.PN_ITS ---
Subjective 2 Subjective: Patient was seen this morning, she is alert to person, to place, not to time, she denies any bloody or black stools, denies any chest pain, denies any cardiovascular history, overnight she had episodes of tachycardia, her troponin was over 2600, discussed results, will consult cardiology, cardiac echocardiogram ordered, placed on anticoagulant therapy, aspirin, statin ? Hemoglobin is 7.6, will give her a unit of blood, especially given her NSTEMI, potassium is 2.6, will replete Vitals/I&O/Wt Last Vital Signs Temp 99.6 F 04/30/24 07:35 Pulse 111 H 04/30/24 12:30 Resp 18 04/30/24 12:30 BP 101/64 04/30/24 12:30 Pulse Ox 95 04/30/24 12:30 O2 Del Method Room Air 04/30/24 12:30 04/29/24 04/30/24 04/30/24 22:59 06:59 14:59 Intake Total 2340 / 4905 510 / 5415 989.1 / 989.1 Output Total 500 / 1325 600 / 1925 600 / 600 Balance 1840 / 3580 -90 / 3490 389.1 / 389.1 Weight last 48 hrs Weight 65.635 kg Weight 63.73 kg Weight 60.464 kg Physical Exam 2 Const: COMMON NORMALS: no acute distress and patient oriented x3 Resp: COMMON NORMALS: normal respiratory effort, No retractions, No use of accessory muscles and clear to auscultation bilaterally AUSCULTATION: clear to auscultation bilaterally Cardio: COMMON NORMALS: regular rate, regular rhythm, S1 normal heart sound present and S2 normal heart sound present RATE: regular rate RHYTHM: r egular rhythm HEART SOUNDS: S1 normal heart sound present and S2 normal heart sound present GI: COMMON NORMALS: Normal to inspection, nondistended, normoactive bowel sounds present and non-tender Extremity: COMMON NORMALS: no pedal edema Neuro: COMMON NORMALS: patient oriented x3 Psych: COMMON NORMALS: mental status grossly normal Data 04/30/24 04:46 04/30/24 04:46 Micro: Microbiology 04/28/24 14:32 Catheter Tip Culture - Final Picc Line 04/28/24 07:34 Urine Culture - Preliminary Urine,Clean Catch Yeast species 04/28/24 07:34 Legionella Urinary Antigen - Final Urine,Clean Catch Bacterial Antigens - Final 04/28/24 07:10 Blood Culture - Preliminary Blood NEGATIVE TO DATE 04/28/24 07:07 Blood Culture - Preliminary Blood NEGATIVE TO DATE A&P Assessment and plan (1) Sepsis: (2) Hypokalemia: (3) NSTEMI (non-ST elevated myocardial infarction): (4) Sacral decubitus ulcer: (5) Transaminitis: (6) Acute anemia: Plan Sepsis -Multifactorial from UTI -Yeast UTI -Pneumonia, healthcare associated pneumonia -Sacral decubitus ulcer ? PICC line tip culture so far negative Urinary tract infection -Follow urine cultures, history of Proteus ESBL, Pseudomonas ? Continue vancomycin, meropenem ? Evidence of yeast species, continue Diflucan Pneumonia ? Continue vancomycin, meropenem ? Follow blood cultures ? Monitor respiratory status closely Sacral decubitus ulcer, measuring 10 x 10 cm, with evidence of tunneling, ? Ordered inflammatory markers, CRP, Pro-Collins, sed rate ? Continue wound care, repositioning ? Continue vancomycin, meropenem Acute anemia with evidence of iron deficiency anemia ? Transfuse 1 unit PRBC ? Protonix, Carafate ? Hemoccult stool ? Monitor hemoglobin every 6 hours NSTEMI # Baseline troponin over 2600 # EKG showing nonspecific ST-T wave changes in anterior leads # No chest pain complaints # No cardiovascular history ? Continue aspirin, statin # Continue heparin drip # Cardiac echocardiogram ordered # Spoke to cardiology, cardiology consulted Hypokalemia replace IV Episodes of hypotension status post fluid bolus, midodrine, monitor Complaints of fatigue, malaise, nausea, vomiting ? Monitor Constipation Multiple sclerosis, will resume hypertension, hold baclofen, gabapentin Lower extremity paralysis, Pressure sore, frequent repositioning. Oral intake as tolerating. Add protein supplements. Urostomy, Epilepsy, continue lacosamide, Keppra Recurrent UTI: Hold methenamine while on antibiotics Recent hospitalization earlier this month with sepsis, UTI, acute encephalopathy Smoking: She has tried quitting, but it has been difficult, is still smoking. She is agreeable to nicotine supplementation while in the hospital. Spoke to patient, spoke to nursing staff, spoke to cardiology Attestations 2 Medical Necessity Statement*: Patient requires hospitalization for sepsis secondary to pneumonia, UTI, sacral decubitus ulcer, acute anemia, NSTEMI Diagnoses Sepsis A41.9 Hypokalemia E87.6 NSTEMI (non-ST elevated myocardial infarction) I21.4 Sacral decubitus ulcer L89.159 Transaminitis R74.01 Acute anemia D64.9
[2024-04-30 14:24] LABS: C Reactive Protein 196.4 mg/L (0.0-4.9)
[2024-04-30 14:31] LABS: Procalcitonin 0.12 ng/mL (0-0.5)
[2024-04-30 14:47] LABS: Erythrocyte Sedimentation Rate 49 mm/hr (0-15)
[2024-04-30] MEDS: clopidogrel 300 mg Tablet PO (15:47)
[2024-04-30] MEDS: gabapentin 300 mg Capsule PO ×2 (15:47→20:00)
[2024-04-30 16:45] LABS: C.Diff PCR (Lab) POSITIVE (Negative)
[2024-04-30] MEDS: vancomycin 125 mg Capsule PO ×2 (17:33→20:00)
[2024-04-30] MEDS: baclofen 10 mg Tablet 20 MG PO (17:33)
[2024-04-30] MEDS: polyethylene glycol 3350 Pkt 17 gm PO (17:33)
[2024-04-30 18:11] LABS: Hematocrit 27.8 % (36-47)
[2024-04-30 18:28] LABS: Vancomycin Trough 19.4 ug/mL (10-15)
[2024-04-30] MEDS: atorvastatin 40 mg Tablet PO (20:00)
[2024-04-30] MEDS: fluconazole premix 200 MG/100 ML PREMIX 100 MG IV (21:15)
--- NOTE | 2024-04-30 21:24 | PC.NURSE ---
Physician Notification: Dr. Lorenzo called unit @2119. New order to restart Heparin Drip. Start @1000 units/hr for 4 hours, check ptt, then manage drip per protocol. Give 250ml BOLUS NS ONCE NOW. Recheck BMP NOW. Recheck Troponin in AM.
[2024-04-30] MEDS: sodium chloride 0.9% 250 ML IV (21:45)
[2024-04-30] MEDS: heparin drip 25,000 UNIT/500 ML PREMIX 20 UNIT IV (22:13)
--- NOTE | 2024-04-30 22:27 | PC.NURSE ---
Vancomycin Infiltrate: R. FA IV infiltrated w/ vancomycin. Site is swollen. Telapharmcy notified- no recommendations given. Dr. Godfrey notified @8025. Warm compress applied.
[2024-04-30 23:09] LABS: Hematocrit 27.5 % (36-47); Platelet Count 535 10^3/cmm (157-399)
[2024-04-30 23:26] LABS: Anion Gap 15.2 (5-19); Blood Urea Nitrogen 6 mg/dL (6-20); Calcium 7.7 mg/dL (8.5-10.5); Carbon Dioxide 16 mmol/L (22-29); Chloride 102 mmol/L (98-107); Creatinine Clr Calc Pharmacy 218.6028; Glomerular Filtration Rate 231.8 mL/min (90-130); Glucose 98 mg/dL (65-115); Osmolality Calculated 270 mOsm/kg (285-295); Sodium 131 mmol/L (136-145)
[2024-04-30 23:44] LABS: Potassium 2.2 mmol/L (3.5-5.1)
[2024-05-01] VITALS (28 sets, daily range): BP systolic 78–108; BP diastolic 45–74; PULSE 91–123; RESP 14–27; TEMP 36.4–37.2; O2SAT 89–100
[2024-05-01] MEDS: MEROPENEM 2,000 MG in sodium chloride 0.9% (plus) 50 ML 100 MG IV ×4 (00:04→23:37)
[2024-05-01] MEDS: potassium chloride ER 20 mEq Tablet 40 MEQ PO ×2 (00:15→23:36)
[2024-05-01] MEDS: potassium chloride premix 100 ML 25 MEQ IV (00:20)
[2024-05-01 00:23] LABS: Magnesium 1.7 mg/dL (1.7-2.3); Phosphorus 1.3 mg/dL (2.5-4.5)
--- NOTE | 2024-05-01 00:26 | PC.NURSE ---
Physician Notification: Notified Dr. Godfrey notified of blood ready, Hgb improved to 7.9, and current vitals. Order to hold off on administrating unit of blood.
[2024-05-01] MEDS: phosphorus 250 mg Tablet 500 MG PO ×2 (00:56→05:21)
[2024-05-01] MEDS: magnesium sulfate premix 2 GM/50 ML PIGGYBACK IV ×2 (01:01→23:37)
--- NOTE | 2024-05-01 01:26 | PC.NURSE ---
Meds Retimed: Per Dr. Godfrey IV KPhos retimed from 0030 to 0700 and PO Phosphorous from 0900 to 0600.
[2024-05-01 02:35] LABS: Basophils % 0.2 %; Eosinophils # 0.1 10^3/uL (0.0-0.8); Eosinophils % 0.4 %; Hematocrit 27.4 % (36-47); Lymphocytes # 2.1 10^3/uL (0.8-4.8); Mean Corpuscular HGB Conc 30.7 g/dL (30-55); Mean Corpuscular Hemoglobin 26.8 pg (27-33); Mean Corpuscular Volume 87.3 fl (85-98); Mean Platelet Volume 8.8 fL (7.4-10.4); Monocytes # 1.2 10^3/uL (0.2-0.9); Monocytes % 7.3 %; Neutrophils % 78.5 %; Nucleated Red Blood Cells % 0 %; Platelet Count 557 10^3/cmm (157-399); Red Blood Count 3.14 10^6/uL (3.85-5.65); Red Cell Distribution Width 17.4 % (12.1-15.1); White Blood Count 16.18 10^3/uL (3.29-11.43)
[2024-05-01 02:54] LABS: Lactate (Lactic Acid level) 1.9 mmol/L (0.5-2.2)
[2024-05-01 02:55] LABS: Partial Thromboplastin Time 78.5 SECONDS (23.9-36.7)
[2024-05-01 03:03] LABS: NT Pro B Type Natriuretic Pept 11304 pg/mL (0-125)
[2024-05-01] MEDS: sucralfate 1 gm Tablet PO ×4 (05:20→21:53)
[2024-05-01 05:59] LABS: C Reactive Protein 153.4 mg/L (0.0-4.9); Magnesium 2.1 mg/dL (1.7-2.3); Phosphorus 1.5 mg/dL (2.5-4.5)
[2024-05-01 06:02] LABS: Troponin T (5th) Once 2833 ng/L (0-10)
[2024-05-01 06:03] LABS: Alanine Aminotransferase 18 U/L (0-33); Alkaline Phosphatase 129 U/L (35-105); Aspartate Amino Transferase 38 U/L (0-32); Blood Urea Nitrogen 5 mg/dL (6-20); Calcium 7.7 mg/dL (8.5-10.5); Carbon Dioxide 18 mmol/L (22-29); Chloride 104 mmol/L (98-107); Creatinine Clr Calc Pharmacy 218.6028; Globulin 3.6 g/dL (1.3-4.6); Glomerular Filtration Rate 231.8 mL/min (90-130); Glucose 91 mg/dL (65-115); Osmolality Calculated 275 mOsm/kg (285-295); Sodium 134 mmol/L (136-145); Total Bilirubin 0.2 mg/dL (0.15-1.2); Total Protein 5.6 g/dL (6.6-8.7)
[2024-05-01 06:08] LABS: Anion Gap 15.6 (5-19); Potassium 3.6 mmol/L (3.5-5.1)
[2024-05-01] MEDS: vancomycin 1,500 MG/300 ML PIGGYBACK 200 MG IV ×2 (07:00→19:41)
[2024-05-01] MEDS: potassium phosphate (mMol PO4) 15 MMOL in sodium chloride 0.9% (100 ml) 100 ML 47 MMOL IV (07:34)
--- NOTE | 2024-05-01 08:01 | XRR_ITS ---
PROCEDURE INFORMATION: Exam: XR Chest Exam date and time: 05/01/2024 8:17 AM Age: 54 years old Clinical indication: Shortness of breath; Additional info: SOB TECHNIQUE: Imaging protocol: Radiologic exam of the chest. Views: 1 view. COMPARISON: CR (CHEST, ) 04/28/2024 5:17 AM FINDINGS: Lungs: Interval development of diffuse ground-glass opacification both lung nicholas more pronounced within the hilar regions likely secondary to pulmonary edema. Pleural spaces: Unremarkable. No pleural effusion. No pneumothorax. Heart/Mediastinum: Heart is mildly enlarged. Bones/joints: No acute bony abnormalities detected. XR/XR chest 1V portable [id number] IMPRESSION: Mild cardiomegaly with interval development of diffuse pulmonary edema likely secondary to acute CHF.
[2024-05-01] MEDS: lacosamide 50 mg Tablet 200 MG PO ×2 (08:31→17:12)
[2024-05-01] MEDS: nicotine 21 mg Patch 1 PATCH TRANSDERMA (08:31)
[2024-05-01] MEDS: clopidogrel 75 mg Tablet PO (08:31)
[2024-05-01] MEDS: vancomycin 125 mg Capsule PO ×4 (08:31→20:41)
[2024-05-01] MEDS: venlafaxine ER (24HR) 150 mg Capsule PO (08:31)
[2024-05-01] MEDS: gabapentin 300 mg Capsule PO ×3 (08:31→20:41)
[2024-05-01] MEDS: aspirin 81 mg EC Tablet PO (08:31)
[2024-05-01] MEDS: FUROsemide 10 mg/mL SDV 4mL 40 MG IVP ×2 (08:32→19:42)
[2024-05-01] MEDS: baclofen 10 mg Tablet 20 MG PO ×2 (08:32→17:12)
[2024-05-01] MEDS: albumin 25 G/100 ML BAG 60 G IV ×2 (08:32→19:40)
--- NOTE | 2024-05-01 09:21 | XRR_ITS ---
PROCEDURE INFORMATION: Exam: XR Chest Exam date and time: 05/01/2024 10:08 AM Age: 54 years old Clinical indication: Device placement; Picc; Additional info: Post picc insertion, karl placing in icu 4. Should be ready at 1000 TECHNIQUE: Imaging protocol: Radiologic exam of the chest. Views: 1 view. COMPARISON: CR (CHEST, ) 05/01/2024 8:17 AM FINDINGS: Tubes, catheters and devices: Right upper extremity PICC terminates over the area of the SVC. Lungs: Mild patchy airspace opacities throughout the gegs-[id number]-izbp-right lungs, questionably improved compared to prior. Pleural spaces: No large pleural effusion. No distinct pneumothorax. Heart/Mediastinum: Cardiomediastinal silhouette is midline and questionably enlarged, stable. Bones/joints: Osseous structures are unchanged. XR/XR chest 1V portable [id number] IMPRESSION: 1. Right upper extremity PICC terminates over the area of the SVC. 2. Cardiomediastinal silhouette is midline and questionably enlarged, stable. 3. Mild patchy airspace opacities throughout the zgir-ppwkgrt-gpoj-right lungs, questionably improved compared to prior. This is compatible with pulmonary edema/congestion.
--- NOTE | 2024-05-01 10:49 | PICC.NOTE ---
Triple lumen PICC placed to right brachial vein. Referred to vascular access nurse for PICC placement due to use of vasopressors. Risks and benefits discussed and informed consent obtained from pt. Right arm assessed with right brachial vein measuring 4.5 mm, straight, and apparent best choice for placement. Using sterile technique and MST, right brachial vein accessed x 1 stick. Mid-arm circumference measured 10 cm from right AC 23 cm. Trimmed cath 40 cm with 1 cm external length noted. CXR shows tip to appear to be in the distal SVC, awaiting radiologist to read. Line secured with stat-lock. Insertion site covered with Secureport IV and TSM. Report given to bedside nurse, Russ, RN.
[2024-05-01] MEDS: pantoprazole 40 mg SDV IVP ×2 (11:42→21:53)
[2024-05-01 11:43] LABS: Hematocrit 27.3 % (36-47)
[2024-05-01 12:00] LABS: Partial Thromboplastin Time 73.4 SECONDS (23.9-36.7)
--- NOTE | 2024-05-01 14:18 | PC.NURSE ---
Monitor started alerting that the patient's SPO2 was at 84. Patient was assessed and no work of breathing was noticed. Patient was put on 2 liters nasal cannula and Dr. Hebert was contacted. Patient started to require more oxygen and an order to give lasix was recieved. Lasix was given and patient's oxygen requirements went down.
--- NOTE | 2024-05-01 15:35 | P.PN_ITS ---
Subjective 2 Subjective: - Patient was seen this morning, we had a discussion about her echocardiogram findings EF is down to 32% with wall motion abnormalities, likely related to STEMI, he will likely at some point require cardiac intervention such as coronary angiography - she does complain of shortness of alberto th, we discussed risk of fluid overload, will diurese her, she does have soft blood pressures will place PICC line and place orders for Levophed to maintain MAP greater than 65 -We also discussed her positive C. diffi cile test results, continue p.o. vancomycin Vitals/I&O/Wt Last Vital Signs Temp 97.6 F 05/01/24 11:35 Pulse 106 H 05/01/24 14:49 Resp 22 H 05/01/24 14:49 BP 95/74 05/01/24 14:49 Pulse Ox 96 05/01/24 14:49 O2 Del Method Room Air 05/01/24 14:49 O2 Flow Rate 2 05/01/24 11:35 05/01/24 05/01/24 05/01/24 06:59 14:59 22:59 Intake Total 296.667 / 3570.767 1183.533 / 1183.533 Output Total 850 / 1950 2450 / 2450 Balance -553.333 / 1620.767 -1266.467 / -1266.467 Weight last 48 hrs Weight 64.365 kg Weight 65.635 kg Physical Exam 2 Const: COMMON NORMALS: no acute distress Resp: COMMON NORMALS: normal respiratory effort, No retractions and No use of accessory muscles AUSCULTATION: crackles and wheezes Cardio: COMMON NORMALS: regular rate, regular rhythm, S1 normal heart sound present and S2 normal heart sound present RATE: regular rate RHYTHM: r egular rhythm HEART SOUNDS: S1 normal heart sound present and S2 normal heart sound present GI: COMMON NORMALS: Normal to inspection, nondistended, normoactive bowel sounds present and non-tender Extremity: COMMON NORMALS: no pedal edema Psych: COMMON NORMALS: mental status grossly normal Data 05/01/24 11:09 05/01/24 05:16 Micro: Microbiology 04/28/24 07:34 Urine Culture - Final Urine,Clean Catch Gabrielle albicans 04/30/24 15:01 Occult Blood (FIT) - Final Stool - Stool Aspirate 04/28/24 14:32 Catheter Tip Culture - Final Picc Line A&P Assessment and plan (1) Sepsis: (2) Hypokalemia: (3) Sacral decubitus ulcer: (4) Transaminitis: (5) Acute anemia: (6) C. difficile colitis: (7) Ischemic cardiomyopathy: (8) Recent ST elevation myocardial infarction (STEMI): (9) CHF exacerbation: Plan CHF exacerbation, elevated BNP, hypoxic requiring 3 L -Systolic -Lasix 40 IV twice daily, with albumin -Levophed maintain MAP in the 65 C. difficile colitis p.o. vancomycin Sepsis -Multifactorial from UTI -Gabrielle UTI -Pneumonia, healthcare associated pneumonia -Sacral decubitus ulcer ? PICC line tip culture so far negative Urinary tract infection -Follow urine cultures, history of Proteus ESBL, Pseudomonas ? Continue vancomycin, meropenem ? Evidence of yeast species, continue Diflucan Pneumonia ? Continue vancomycin, meropenem ? Follow blood cultures ? Monitor respiratory status closely Sacral decubitus ulcer, measuring 10 x 10 cm, with evidence of tunneling, ? Ordered inflammatory markers, CRP 153.4, Pro-Collins 0.1, sed rate 49 ? Continue wound care, repositioning ? Continue vancomycin, meropenem Acute anemia with evidence of iron deficiency anemia ? Status post 1 unit PRBC ? Protonix, Carafate ? Hemoccult stool positive ? Monitor hemoglobin as patient is on heparin, Plavix STEMI # Baseline troponin over 2600 # EKG showing Q waves # No chest pain complaints # No cardiovascular history ? Continue aspirin, statin, Plavix # Continue heparin drip # Cardiac echocardiogram CONCLUSIONS Severe diffuse hypokinesia of the mid and apical septum, anteroseptum, inferior and lateral wall segments. LV ejection fraction around 32%. Moderately dilated LV cavity. Moderately increased left atrial size. Mild-moderate mitral valve regurgitation. There is no pericardial effusion. No obvious intracardiac masses. No similar previous studies are available for comparison # Spoke to cardiology, cardiology consulted -Plan for medical management, will consider coronary angiography based on clinical progress Hypokalemia replace IV Episodes of hypotension status post fluid bolus, midodrine, monitor Complaints of fatigue, malaise, nausea, vomiting ? Monitor Constipation Multiple sclerosis, will resume hypertension, baclofen, gabapentin Lower extremity paralysis, Pressure sore, frequent repositioning. Oral intake as tolerating. Add protein supplements. Urostomy, Epilepsy, continue lacosamide, Keppra Recurrent UTI: Hold methenamine while on antibiotics Recent hospitalization earlier this month with sepsis, UTI, acute encephalopathy Smoking: She has tried quitting, but it has been difficult, is still smoking. She is agreeable to nicotine supplementation while in the hospital. Spoke to patient, spoke to nursing staff, spoke to cardiology Attestations 2 Medical Necessity Statement*: Patient requires position for STEMI, sepsis, C. difficile colitis, pneumonia, UTI Diagnoses Sepsis A41.9 Hypokalemia E87.6 Sacral decubitus ulcer L89.159 Transaminitis R74.01 Acute anemia D64.9 C. difficile colitis A04.72 [address]schemic cardiomyopathy [address]25.[address] elevation myocardial infarction (STEMI) CHF exacerbation I50.9
[2024-05-01] MEDS: sodium chloride 0.9% (100 ml) 100 ML 25 ML (16:10)
--- NOTE | 2024-05-01 17:09 | PM.PN ---
Subjective Medications: Medication Review Details: Current Medications Acetaminophen (Acetaminophen 325 Mg Tablet) 650 mg PO Q6H PRN PRN Reason: Mild/Mod Pain Or Temp >/= 101 Last Admin: 04/29/24 16:36 Dose: 650 mg Aspirin (Aspirin 81 Mg Ec Tablet) 81 mg PO DAILY [facility] Last Admin: 05/01/24 08:31 Dose: 81 mg Atorvastatin Calcium (Atorvastatin 40 Mg Tablet) 40 mg PO BEDTIME BIJAN Last Admin: 04/30/24 20:00 Dose: 40 mg Baclofen (Baclofen 10 Mg Tablet) 40 mg PO BEDTIME BIJAN Last Admin: 04/28/24 21:05 Dose: 40 mg Baclofen (Baclofen 10 Mg Tablet) 20 mg PO BID BIJAN Last Admin: 05/01/24 08:32 Dose: 20 mg Bisacodyl (Bisacodyl 10 Mg Supp) 10 mg NJ QPM [facility] Last Admin: 04/30/24 17:33 Dose: Not Given Clopidogrel Bisulfate (Clopidogrel 75 Mg Tablet) 75 mg PO DAILY [facility] Last Admin: 05/01/24 08:31 Dose: 75 mg Furosemide (Furosemide 10 Mg/Ml Sdv 4ml) 40 mg IVP Q12H BIJAN Stop: 05/01/24 20:16 Last Admin: 05/01/24 08:32 Dose: 40 mg Gabapentin (Gabapentin 300 Mg Capsule) 300 mg PO TID BIJAN Last Admin: 05/01/24 15:04 Dose: 300 mg Guaifenesin (Guaifenesin 100 Mg/5 Ml Udc 10 Ml) 500 mg PO Q4H PRN PRN Reason: Cough Heparin Sodium (Porcine) (Heparin 5,000 Unit/Ml Inj 1 Ml) 0 unit IVP PRN PRN; Protocol PRN Reason: Heparin Weight Based Protocol -Subsequent Bolus Meropenem 2,000 mg/ Sodium (Chloride) 50 mls @ 100 mls/hr IV Q8H BIJAN; Protocol Last Admin: 05/01/24 15:04 Dose: 100 mls/hr Vancomycin HCl (Vancocin) 1,500 mg in 300 mls @ 200 mls/hr IV Q12H BIJAN Last Admin: 05/01/24 07:00 Dose: 200 mls/hr Fluconazole (Diflucan Premix) 200 mg in 100 mls @ 100 mls/hr IV Q24H [facility] Last Infusion: 04/30/24 22:17 Dose: Infused Heparin Sodium/Sodium Chloride (Heparin Drip) 25,000 unit in 500 mls @ 0 mls/hr IV CONT [facility]; Protocol Last Titration: 05/01/24 12:11 Dose: 14.47 unit/kg/hr, 19 mls/hr Norepinephrine Bitartrate (Levophed) 4 mg in 250 mls @ 0 mls/hr IV .Q0M [facility]; Protocol Albumin Human (Albumin) 25 g in 100 mls @ 60 mls/hr IV Q12H [facility] Stop: 05/01/24 21:54 Last Admin: 05/01/24 08:32 Dose: 60 mls/hr Lacosamide (Lacosamide 50 Mg Tablet) 200 mg PO BID [facility] Last Admin: 05/01/24 08:31 Dose: 200 mg Morphine Sulfate (Morphine 4 Mg/Ml Sdv 1 Ml) 2 mg IVP Q4H PRN PRN Reason: SEVERE PAIN Nicotine (Nicotine 21 Mg Patch) 1 patch TRANSDERMA Q24H [facility] Last Admin: 05/01/24 08:31 Dose: 1 patch Nicotine Polacrilex (Nicotine 4 Mg Lozenge) 4 mg MUCOUS MEM Q4H PRN PRN Reason: NICOTINE CRAVINGS Ondansetron HCl (Ondansetron 2 Mg/Ml Sdv 2 Ml) 4 mg IVP Q6H PRN PRN Reason: NAUSEA AND VOMITING Pantoprazole Sodium (Pantoprazole 40 Mg Sdv) 40 mg IVP Q12H [facility] Last Admin: 05/01/24 11:42 Dose: 40 mg Polyethylene Glycol (Polyethylene Glycol 3350 Pkt 17 Gm) 17 gm PO BID [facility] Last Admin: 05/01/24 08:40 Dose: Not Given Sucralfate (Sucralfate 1 Gm Tablet) 1 gm PO Q6H [facility] Last Admin: 05/01/24 11:42 Dose: 1 gm Tramadol HCl (Tramadol 50 Mg Tablet) 50 mg PO Q6H PRN PRN Reason: Pain Vancomycin HCl (Vancomycin 125 Mg Capsule) 125 mg PO QID [facility] Last Admin: 05/01/24 12:34 Dose: 125 mg Venlafaxine HCl (Venlafaxine Er (24hr) 150 Mg Capsule) 150 mg PO DAILY [facility] Last Admin: 05/01/24 08:31 Dose: 150 mg Vitals/I&O/Wt Last Vital Signs Temp 98.0 F 05/01/24 16:51 Pulse 105 H 05/01/24 16:51 Resp 18 05/01/24 16:51 BP 96/64 05/01/24 16:51 Pulse Ox 93 05/01/24 16:51 O2 Del Method Room Air 05/01/24 16:36 O2 Flow Rate 2 05/01/24 11:35 05/01/24 05/01/24 05/01/24 06:59 14:59 22:59 Intake Total 296.667 / 3570.767 1183.533 / 1183.533 0 / 1183.533 Output Total 850 / 1950 2450 / 2450 Balance -553.333 / 1620.767 -1266.467 / -1266.467 0 / -1266.467 Weight last 48 hrs Weight 141 lb 14.4 oz Weight 144 lb 11.2 oz Physical Exam Narrative: GENERAL: The patient is alert and oriented times three. Not in any acute distress. Somewhat lethargic HEENT: No significant pallor, icterus or lymphadenopathy.Oral cavity: There are no mucous membrane lesions. NECK: Trachea appears to be central. No masses noted. No JVD or thyromegaly appreciated. RESPIRATORY: Chest is symmetrical. No intercostals muscle retraction or any accessory muscle activation. There is no chest wall tenderness. Breath sounds are heard bilaterally. No rales or rhonchi heard. No evidence of any consolidation. BREASTS: Deferred. HEART: The heart sounds are normal. No S3 or S4. Short systolic murmur in the lower sternal border. No pericardial rub ABDOMEN: No vessel pulsations or distention. No tenderness. No organomegaly appreciated. Bowel sounds are normally heard. : Deferred. RECTAL: Deferred. LYMPHATIC: No lymphadenopathy noted in the neck. EXTREMITIES: Bilateral 2+ edema. Peripheral pulses are palpable but weak bilaterally in the lower extremities MUSCULOSKELETAL: No acute joint deformities or swelling SKIN: There are no significant rashes or ecchymosis NEUROPSYCHIATRIC: Patient is paraplegic. Alert and oriented x 3 Data 05/01/24 11:09 05/01/24 05:16 Other Labs: Laboratory Last Values WBC 16.18 10^3/uL (3.29-11.43) H 05/01/24 02:25 RBC 3.14 10^6/uL (3.85-5.65) L 05/01/24 02:25 Hgb 8.40 g/dL (11.27-16.99) L 05/01/24 11:09 Hct 27.3 % (36-47) L 05/01/24 11:09 MCV 87.3 fl (85-98) 05/01/24 02:25 MCH 26.8 pg (27-33) L 05/01/24 02:25 MCHC 30.7 g/dL (30-55) 05/01/24 02:25 RDW 17.4 % (12.1-15.1) H 05/01/24 02:25 Plt Count 557 10^3/cmm (157-399) H 05/01/24 02:25 MPV 8.8 fL (7.4-10.4) 05/01/24 02:25 Neut % (Auto) 78.5 % 05/01/24 02:25 Lymph % (Auto) 13.0 % 05/01/24 02:25 Maries % (Auto) 7.3 % 05/01/24 02:25 Eos % (Auto) 0.4 % 05/01/24 02:25 Baso % (Auto) 0.2 % 05/01/24 02:25 Neut # (Auto) 12.70 10^3/uL (1.8-7.7) H 05/01/24 02:25 Lymph # (Auto) 2.1 10^3/uL (0.8-4.8) 05/01/24 02:25 Maries # (Auto) 1.2 10^3/uL (0.2-0.9) H 05/01/24 02:25 Eos # (Auto) 0.1 10^3/uL (0.0-0.8) 05/01/24 02:25 Baso # (Auto) 0.0 10^3/uL (0.0-0.1) 05/01/24 02:25 Nucleated RBC % (auto) 0 % 05/01/24 02:25 Nucleated RBCs # 0.0 /100WBC 05/01/24 02:25 ESR 49 mm/hr (0-15) H 04/30/24 04:46 PT 14.50 SECONDS (12.1-14.9) 04/29/24 06:23 INR 1.10 (0.8-1.2) 04/29/24 06:23 APTT 73.4 SECONDS (23.9-36.7) H 05/01/24 11:09 Sodium Cancelled 05/01/24 15:23 Potassium Cancelled 05/01/24 15:23 Chloride Cancelled 05/01/24 15:23 Carbon Dioxide Cancelled 05/01/24 15:23 Anion Gap Cancelled 05/01/24 15:23 BUN Cancelled 05/01/24 15:23 Creatinine Cancelled 05/01/24 15:23 GFR Calculation Cancelled 05/01/24 15:23 Glucose Cancelled 05/01/24 15:23 Calculated Osmolality Cancelled 05/01/24 15:23 Lactic Acid 1.1 mmol/L (0.5-2.2) 04/28/24 04:56 Lactate 1.9 mmol/L (0.5-2.2) 05/01/24 02:25 Calcium Cancelled 05/01/24 15:23 Phosphorus Cancelled 05/01/24 15:23 Magnesium Cancelled 05/01/24 15:23 Iron 8 ug/dL (37-145) L 04/30/24 04:46 Ferritin 253 ng/mL (15-150) H 04/30/24 04:46 Total Bilirubin 0.2 mg/dL (0.15-1.2) 05/01/24 05:16 AST 38 U/L (0-32) H 05/01/24 05:16 ALT 18 U/L (0-33) 05/01/24 05:16 Alkaline Phosphatase 129 U/L (35-105) H 05/01/24 05:16 Creatine Kinase 461 U/L (26-192) H* 04/30/24 04:46 Troponin T 5th Gen ng/L 2833 ng/L (0-10) H* 05/01/24 05:16 Troponin T Baseline 2679 ng/L (0-10) H* 04/30/24 04:46 Troponin T 120 Minute 2540 ng/L (0-10) H 04/30/24 09:25 Delta Troponin T -139 ABS# (0-10) L 04/30/24 09:25 Troponin T Hi Sens 6Hr 2339 ng/L (0-10) H 04/30/24 10:47 Troponin T Hi Sens 6Hr Delta -340 ng/L (0-12) L 04/30/24 10:47 C-Reactive Protein 153.4 mg/L (0.0-4.9) H 05/01/24 05:16 NT-Pro-B Natriuret Pep 95111 pg/mL (0-125) H 05/01/24 02:25 Total Protein 5.6 g/dL (6.6-8.7) L 05/01/24 05:16 Albumin 2.0 g/dL (3.5-5.2) L 05/01/24 05:16 Globulin 3.6 g/dL (1.3-4.6) 05/01/24 05:16 Lipase 44 U/L (13-60) 04/28/24 04:56 Procalcitonin 0.10 ng/mL (0-0.5) 05/01/24 05:16 Urine Color Yellow (Yellow) 04/28/24 07:34 Urine Appearance Clear (CLEAR) 04/28/24 07:34 Urine pH 7.0 (5-7) 04/28/24 07:34 Ur Specific [place] 1.013 (1.005-1.030) 04/28/24 07:34 Urine Protein Negative (Negative) 04/28/24 07:34 Urine Glucose (UA) Negative (Normal) 04/28/24 07:34 Urine Ketones Negative (Negative) 04/28/24 07:34 Urine Blood 1+ (Negative) A 04/28/24 07:34 Urine Nitrate Negative (Negative) 04/28/24 07:34 Urine Bilirubin Negative (Negative) 04/28/24 07:34 Urine Urobilinogen 0.2 mg/dL (Negative) 04/28/24 07:34 Ur Leukocyte Esterase Trace (Negative) A 04/28/24 07:34 Urine RBC 6-10 /hpf (0-2) 04/28/24 07:34 Urine WBC 21-50 /hpf (0-5) H 04/28/24 07:34 Ur Squamous Epith Cells 0-5 /hpf (0-5) 04/28/24 07:34 Amorphous Sediment Trace /hpf 04/28/24 07:34 Urine Bacteria None seen /hpf (NONE) 04/28/24 07:34 Hyaline Casts 5.77 /lpf 04/28/24 07:34 Urine Mucus Trace /hpf 04/28/24 07:34 Urine Yeast 2+ /hpf H 04/28/24 07:34 Nasal MRSA (PCR) Mrsa detected (Not Detecte) A 04/29/24 00:14 Vancomycin Trough 19.4 ug/mL (10-15) H 04/30/24 17:47 Adenovirus (PCR) Not detected (NOT DETECT) 04/28/24 15:39 C. pneumoniae DNA (PCR) Not detected (NOT DETECT) 04/28/24 15:39 C. difficile (PCR) Positive (Negative) H 04/30/24 15:01 Coronavirus (PCR) Negative (Negative) 04/28/24 06:35 Coronavirus 229E (PCR) Not detected (NOT DETECT) 04/28/24 15:39 Hepatitis A IgM Ab Non-reactive (Nonreactive) 04/28/24 04:56 Hep Bs Antigen Non-reactive (Nonreactive) 04/28/24 04:56 Hep B Core IgM Ab Non-reactive (Nonreactive) 04/28/24 04:56 Hepatitis C Antibody Non-reactive (Nonreactive) 04/28/24 04:56 Human Metapneumovir PCR Not detected (NOT DETECT) 04/28/24 15:39 Influenza A (H1) PCR Not detected (NOT DETECT) 04/28/24 15:39 Influenza A (PCR) Negative (Negative) 04/28/24 06:35 Influ A (H1/09) PCR Not detected (NOT DETECT) 04/28/24 15:39 Influenza A (H3) PCR Not detected (NOT DETECT) 04/28/24 15:39 Influenza Type A (PCR) Not detected (NOT DETECT) 04/28/24 15:39 Influenza Type B (PCR) Not detected (NOT DETECT) 04/28/24 15:39 M. pneumoniae (PCR) Not detected (NOT DETECT) 04/28/24 15:39 Parainfluenza 1 (PCR) Not detected (NOT DETECT) 04/28/24 15:39 Parainfluenza 2 (PCR) Not detected (NOT DETECT) 04/28/24 15:39 Parainfluenza 3 (PCR) Not detected (NOT DETECT) 04/28/24 15:39 Parainfluenza 4 (PCR) Not detected (NOT DETECT) 04/28/24 15:39 RSV (PCR) Negative (Negative) 04/28/24 06:35 RSV Type A (PCR) Not detected (NOT DETECT) 04/28/24 15:39 RSV Type B (PCR) Not detected (NOT DETECT) 04/28/24 15:39 Entero/Rhino (PCR) Not detected (NOT DETECT) 04/28/24 15:39 SARS-CoV-2 (PCR) Not detected (NOT DETECT) 04/28/24 15:39 Blood Type A Positive 04/30/24 06:59 Rho(D) Type Rh positive 04/30/24 06:59 Antibody Screen Positive 04/30/24 06:59 Antibody Identification Anti-C Anti-e Anti-Blanca 04/30/24 06:59 Antibody Identification Anti-C Anti-e Anti-Blanca 04/30/24 06:59 Antibody Identification Anti-C Anti-e Anti-Blanca 04/30/24 06:59 Crossmatch See Detail 04/30/24 06:59 Micro: Microbiology 04/28/24 07:34 Urine Culture - Final Urine,Clean Catch Gabrielle albicans 04/30/24 15:01 Occult Blood (FIT) - Final Stool - Stool Aspirate 04/28/24 14:32 Catheter Tip Culture - Final Picc Line A&P Assessment and plan (1) Recent ST elevation myocardial infarction (STEMI): The patient's the EKG is suggestive of recent ST elevation [place] involving the anterolateral wall. She seems to have persistent ST elevation since hospital admission. Currently she has no chest pain. She may be treated with IV heparin, Plavix and aspirin. Because of the hypotension, may hold off on any blood pressure lowering medications. Will review the echocardiogram to decide on further management. (2) Tobacco abuse: Patient is working on quitting. Advised to do so. (3) Hypertension: Well controlled. Continue current medications. Patient seems having episodes of hypotension Qualifiers: Hypertension type: primary hypertension Qualified Code(s): I10 - Essential (primary) hypertension (4) Tachycardia: This could be multifactorial. Sepsis, LV systolic dysfunction, heart failure, etc. are contributing factors. (5) Hypokalemia: Potassium today seems to be in the normal range. May continue the current management Plan May be continued on the current medication for the time being. May consider a cardiac catheterization in the next couple of days, to further evaluate the coronary status and decide on further management. In the meanwhile, may try to optimize the medical treatment Based on the clinical progress, and the results of the above tests further recommendations will be made. Attestations Medical Necessity Statement*: Deferred to the primary Coding Level of Care Code [address] elevation myocardial infarction (STEMI) Tobacco abuse Z72.0 Primary hypertension I10 Hypertension type: primary hypertension Tachycardia R00.0 Hypokalemia E87.6
[2024-05-01] MEDS: polyethylene glycol 3350 Pkt 17 gm PO (17:12)
[2024-05-01] MEDS: bisacodyl 10 mg Supp PR (17:12)
[2024-05-01 17:24] LABS: Blood Urea Nitrogen 4 mg/dL (6-20); Calcium 7.4 mg/dL (8.5-10.5); Carbon Dioxide 19 mmol/L (22-29); Chloride 101 mmol/L (98-107); Creatinine Clr Calc Pharmacy 325.3255; Glomerular Filtration Rate 370.1 mL/min (90-130); Glucose 77 mg/dL (65-115); Magnesium 1.7 mg/dL (1.7-2.3); Osmolality Calculated 266 mOsm/kg (285-295); Phosphorus 1.8 mg/dL (2.5-4.5); Sodium 130 mmol/L (136-145)
[2024-05-01 17:25] LABS: Anion Gap 13.7 (5-19); Potassium 3.7 mmol/L (3.5-5.1)
[2024-05-01 19:00] LABS: Partial Thromboplastin Time 93.6 SECONDS (23.9-36.7)
--- NOTE | 2024-05-01 19:09 | ECG_ITS ---
[email or web address] Test Date: 2024-05-01 Pat Name: Teresa Moraes Department: Room: ICU04 Gender: Female Personalized Living Assistant: : 1970 Requested By: Rich Hebert Order Number: [id number] Ishan MD: Yousuf Lorenzo M.D. Measurements Intervals [place] Rate: 113 P: 239 RI: 118 QRS: -70 QRSD: 78 T: 72 QT: 360 QTc: 494 Interpretive Statements Possible ECTOPIC ATRIAL TACHYCARDIA WITH SHORT RI INTERVAL POSSIBLE RIGHT VENTRICULAR CONDUCTION DELAY [RSR (QR) IN V1/V2] LEFT ANTERIOR FASCICULAR BLOCK [QRS AXIS <= -45, QR IN I, RS IN II] ANTEROLATERAL MYOCARDIAL INFARCTION , OF INDETERMINATE AGE [40+ ms Q WAVE IN I/aVL/V3-V6] Compared to ECG 04/30/2024 04:54:57 Short RI interval now present Left anterior fascicular block now present Sinus tachycardia no longer present Myocardial infarct finding still present Electronically Signed On 05-02-2024 17:38:24 IT SECURITY PROJECT MANAGER by Yousuf Lorenzo M.D. [email or web address]
--- NOTE | 2024-05-01 19:15 | PC.NURSE ---
Patient started to present with some chest tightness. EKG was done and it showed St elevation in some leads. Dr. Lorenzo was contacted and he ordered to give sublingual nitroglycerin tab for the chest pain.
[2024-05-01] MEDS: nitroglycerin 0.4 mg sublingual Tablet SUBLINGUAL (19:31)
[2024-05-01] MEDS: atorvastatin 40 mg Tablet PO (20:41)
[2024-05-01] MEDS: fluconazole premix 200 MG/100 ML PREMIX 100 MG IV (21:44)
[2024-05-01] MEDS: heparin drip 25,000 UNIT/500 ML PREMIX 16 UNIT IV (21:52)
[2024-05-01 22:10] LABS: Basophils % 0.2 %; Eosinophils # 0.1 10^3/uL (0.0-0.8); Eosinophils % 0.9 %; Hematocrit 27.7 % (36-47); Lymphocytes # 1.5 10^3/uL (0.8-4.8); Lymphocytes % 12.3 %; Mean Corpuscular HGB Conc 31.4 g/dL (30-55); Mean Corpuscular Hemoglobin 26.2 pg (27-33); Mean Corpuscular Volume 83.4 fl (85-98); Monocytes # 1.1 10^3/uL (0.2-0.9); Monocytes % 8.8 %; Neutrophils # 9.58 10^3/uL (1.8-7.7); Neutrophils % 77.2 %; Nucleated Red Blood Cells % 0 %; Platelet Count 542 10^3/cmm (157-399); Red Blood Count 3.32 10^6/uL (3.85-5.65); Red Cell Distribution Width 17.2 % (12.1-15.1)
[2024-05-01 22:26] LABS: Alanine Aminotransferase 21 U/L (0-33); Albumin Level 3.2 g/dL (3.5-5.2); Alkaline Phosphatase 122 U/L (35-105); Aspartate Amino Transferase 33 U/L (0-32); Blood Urea Nitrogen 5 mg/dL (6-20); Calcium 7.7 mg/dL (8.5-10.5); Carbon Dioxide 20 mmol/L (22-29); Chloride 97 mmol/L (98-107); Creatinine Clr Calc Pharmacy 216.8836; Globulin 3.9 g/dL (1.3-4.6); Glomerular Filtration Rate 231.8 mL/min (90-130); Glucose 98 mg/dL (65-115); Magnesium 1.6 mg/dL (1.7-2.3); Osmolality Calculated 271 mOsm/kg (285-295); Phosphorus 1.4 mg/dL (2.5-4.5); Sodium 132 mmol/L (136-145); Total Bilirubin 1.2 mg/dL (0.15-1.2); Total Protein 7.1 g/dL (6.6-8.7)
[2024-05-01 22:43] LABS: Anion Gap 17.8 (5-19); Potassium 2.8 mmol/L (3.5-5.1)
[2024-05-02] VITALS (28 sets, daily range): BP systolic 72–124; BP diastolic 27–85; PULSE 90–127; RESP 16–31; TEMP 36.4–37.5; O2SAT 61–100; BMI 20.7
[2024-05-02] MEDS: potassium phosphate (mEq K) 40 MEQ in sodium chloride 0.9% (100 ml) 100 ML 27.25 MEQ IV (00:36)
--- NOTE | 2024-05-02 03:20 | XRR_ITS ---
PROCEDURE INFORMATION: Exam: XR Chest Exam date and time: 05/02/2024 3:40 AM Age: 54 years old Clinical indication: Shortness of breath; Additional info: Developing hypoxia TECHNIQUE: Imaging protocol: Radiologic exam of the chest. Views: 1 view. COMPARISON: CR XR chest 1V portable [id number] 05/01/2024 10:08 AM FINDINGS: Tubes, catheters and devices: Peripherally inserted right central venous catheter with tip at the mid to distal superior vena cava. Lungs: Interval near-complete opacification of the left lung field. Interval loss of left lung volume. Pleural spaces: Blunting of the left costophrenic angle. Heart/Mediastinum: Leftward shift of the mediastinum. Bones/joints: Unremarkable. XR/XR chest 1V portable [id number] IMPRESSION: Significant left lung field volume loss with interval near-complete opacification of the lung field and evolving left pleural effusion. Difficult to exclude right central airway obstruction/evolving infection. Correlate clinically. CT of the chest can be obtained for further assessment.
[2024-05-02] MEDS: potassium chloride ER 20 mEq Tablet 40 MEQ PO ×2 (03:31→09:15)
[2024-05-02 05:15] LABS: Basophils % 0.2 %; Eosinophils # 0.2 10^3/uL (0.0-0.8); Eosinophils % 1.5 %; Hematocrit 27.1 % (36-47); Lymphocytes # 1.3 10^3/uL (0.8-4.8); Mean Corpuscular HGB Conc 31.7 g/dL (30-55); Mean Corpuscular Hemoglobin 26.5 pg (27-33); Mean Corpuscular Volume 83.6 fl (85-98); Mean Platelet Volume 9.1 fL (7.4-10.4); Monocytes # 1.1 10^3/uL (0.2-0.9); Monocytes % 9.6 %; Neutrophils % 76.9 %; Nucleated Red Blood Cells % 0 %; Platelet Count 536 10^3/cmm (157-399); Red Blood Count 3.24 10^6/uL (3.85-5.65); Red Cell Distribution Width 17.7 % (12.1-15.1); White Blood Count 11.32 10^3/uL (3.29-11.43)
[2024-05-02 05:34] LABS: Lactate (Lactic Acid level) 1.4 mmol/L (0.5-2.2)
[2024-05-02 05:38] LABS: C Reactive Protein 136.8 mg/L (0.0-4.9); Magnesium 2.1 mg/dL (1.7-2.3); Phosphorus 3.7 mg/dL (2.5-4.5)
[2024-05-02 05:41] LABS: Alanine Aminotransferase 18 U/L (0-33); Albumin Level 2.8 g/dL (3.5-5.2); Alkaline Phosphatase 120 U/L (35-105); Aspartate Amino Transferase 35 U/L (0-32); Blood Urea Nitrogen 5 mg/dL (6-20); Calcium 7.2 mg/dL (8.5-10.5); Carbon Dioxide 21 mmol/L (22-29); Chloride 100 mmol/L (98-107); Creatinine Clr Calc Pharmacy 325.3255; Globulin 3.5 g/dL (1.3-4.6); Glomerular Filtration Rate 370.1 mL/min (90-130); Glucose 88 mg/dL (65-115); NT Pro B Type Natriuretic Pept 13126 pg/mL (0-125); Osmolality Calculated 277 mOsm/kg (285-295); Procalcitonin 0.09 ng/mL (0-0.5); Sodium 135 mmol/L (136-145); Total Bilirubin 0.7 mg/dL (0.15-1.2); Total Protein 6.3 g/dL (6.6-8.7)
[2024-05-02 05:43] LABS: Partial Thromboplastin Time 67.2 SECONDS (23.9-36.7)
[2024-05-02] MEDS: sucralfate 1 gm Tablet PO ×3 (05:51→16:40)
--- NOTE | 2024-05-02 06:00 | P.MISC_ITS ---
Miscellaneous Note Purpose of Documentation: I was told tonight that the patient's electrolytes were deranged. She was given 40mEQ of oral KCl x 1, 2g MgSO4, and 40mEQ (not 30mmol) of Potassium phosphate. Around 3:00am, the patient's nurse stated that the patient's O2 requirements increased from 2L to 5L NC O2. A CXR was ordered that showed tania out L. lung. [facility] was contacted and there is a waiting list, so [facility]'s transfer center in [place] was contacted. The Adolescent Medicine Specialist metal container maker at [facility], Dr. Hernandez, requested for ABG, requested that the patient's CXR be sent over the cloud, and requested that I clarify the patient's CODE STATUS. I called the phone number listed for the patient's mother and left a message requesting that she call the hospital or the hospital's ICU for an update and to clarify the patient's code status.
[2024-05-02] MEDS: MEROPENEM 2,000 MG in sodium chloride 0.9% (plus) 50 ML 100 MG IV ×2 (06:19→14:42)
[2024-05-02] MEDS: vancomycin 1,500 MG/300 ML PIGGYBACK 200 MG IV (06:20)
[2024-05-02 06:32] LABS: Alveolar-Arterial Oxygen Gradi 5.8 mmHg (5-10); Arterial Blood Gas Hematocrit 25.9 % (37-47); Base Excess ABG -1.9 mmol/L (-2.0-2.0); Blood Gas Operator Identificat SAM; Blood Gas Sample Site Brachial, left; Blood Gas Sample Type Arterial; Carboxyhemoglobin 1.1 %THgb (0.4-20.1); HCO3 ABG 20.8 mmol/L (22-26); HGB O2 Sat 94.2 % (95-100); Methemoglobin 0.4 % (0.4-1.5); Oxygen Device NC; Oxygen Saturation ABG 95.6; PO2 ABG 71.1 mmHg (80.0-100.0); Potassium Level - ABG 3.4 mmol/L (3.5-5.0); Total Hemoglobin 8.4 g/dL (12-16)
[2024-05-02] MEDS: sodium chloride 3.5% neb 4 mL Neb INHALATION (08:59)
[2024-05-02] MEDS: albuterol 2.5 mg/3 mL Neb INHALATION (08:59)
[2024-05-02] MEDS: albumin 25 G/100 ML BAG 60 G IV (09:01)
[2024-05-02] MEDS: acetylcysteine 200 mg/mL MDV 10 mL 100 MG INHALATION (09:04)
[2024-05-02] MEDS: vancomycin 125 mg Capsule PO ×3 (09:06→16:40)
[2024-05-02] MEDS: FUROsemide 10 mg/mL SDV 4mL 40 MG IVP (09:06)
[2024-05-02] MEDS: clopidogrel 75 mg Tablet PO (09:07)
[2024-05-02] MEDS: aspirin 81 mg EC Tablet PO (09:07)
[2024-05-02] MEDS: gabapentin 300 mg Capsule PO ×2 (09:07→14:42)
[2024-05-02] MEDS: venlafaxine ER (24HR) 150 mg Capsule PO (09:07)
[2024-05-02] MEDS: lacosamide 50 mg Tablet 200 MG PO (09:07)
[2024-05-02] MEDS: baclofen 10 mg Tablet 20 MG PO (09:07)
[2024-05-02] MEDS: nicotine 21 mg Patch 1 PATCH TRANSDERMA (09:08)
[2024-05-02] MEDS: polyethylene glycol 3350 Pkt 17 gm PO (09:08)
--- NOTE | 2024-05-02 09:12 | XRR_ITS ---
PROCEDURE INFORMATION: Exam: XR Chest Exam date and time: 05/02/2024 10:38 AM Age: 54 years old Clinical indication: Shortness of breath; Additional info: Suspected mucus plugging TECHNIQUE: Imaging protocol: Radiologic exam of the chest. Views: 1 view. COMPARISON: CR (CHEST, ) 05/02/2024 3:40 AM FINDINGS: Tubes, catheters and devices: Peripherally inserted central venous catheter with its distal tip at the cavoatrial junction. Lungs: Grossly stable near complete opacification of the left hemithorax. Pleural spaces: Moderate left-sided pleural effusion. No significant right-sided pleural effusion. No pneumothorax. Heart/Mediastinum: Leftward mediastinal shift. The cardiomediastinal silhouette is obscured. Bones/joints: Unremarkable. XR/XR chest 1V portable [id number] IMPRESSION: 1. Grossly stable appearance of the left lung with persistent near complete left hemithorax opacification. Slight tapering of the left mainstem bronchus suspicious for mucus plugging resulting in left lung atelectasis however evaluation is limited on plain radiograph. CT of the chest can be obtained for further evaluation as clinically indicated. 2. Moderate left-sided pleural effusion.
[2024-05-02] MEDS: morphine 4 mg/mL SDV 1 mL 2 MG IVP (09:15)
[2024-05-02 09:36] LABS: Blood Urea Nitrogen 6 mg/dL (6-20); Calcium 7.5 mg/dL (8.5-10.5); Carbon Dioxide 19 mmol/L (22-29); Chloride 101 mmol/L (98-107); Creatinine Clr Calc Pharmacy 320.5232; Glomerular Filtration Rate 370.1 mL/min (90-130); Glucose 92 mg/dL (65-115); Magnesium 2.1 mg/dL (1.7-2.3); Osmolality Calculated 275 mOsm/kg (285-295); Phosphorus 2.3 mg/dL (2.5-4.5); Sodium 134 mmol/L (136-145)
[2024-05-02 09:53] LABS: Anion Gap 17.5 (5-19); Potassium 3.5 mmol/L (3.5-5.1)
[2024-05-02] MEDS: phosphorus 250 mg Tablet PO (11:04)
[2024-05-02] MEDS: pantoprazole 40 mg SDV IVP (11:05)
--- NOTE | 2024-05-02 11:22 | CTR_ITS ---
PROCEDURE INFORMATION: Exam: CT Chest Without Contrast; Diagnostic Exam date and time: 05/02/2024 2:10 PM Age: 54 years old Clinical indication: Shortness of breath; Additional info: SOB TECHNIQUE: Imaging protocol: Diagnostic computed tomography of the chest without contrast. Radiation optimization: All CT scans at this facility use at least one of these dose optimization techniques: automated exposure control; mA and/or kV adjustment per patient size (includes targeted exams where dose is matched to clinical indication); or iterative reconstruction. COMPARISON: CR (CHEST, ) 05/02/2024 10:38 AM RADIATION DOSE METRICS: Total DLP (mGy-cm): 413.34 FINDINGS: Tubes, catheters and devices: PICC from the right arm with the tip in the distal SVC in satisfactory position. Lungs: There is atelectasis involving the entire left upper lobe. There is occlusion of the left upper lobe bronchi. There is consolidation and volume loss involving the left lower lobe. Pleural spaces: Small bilateral pleural effusions are noted. Heart: Unremarkable. No cardiomegaly. No pericardial effusion. Coronary arteries: Coronary artery calcifications are noted. Mediastinal space: There is mediastinal shift to the left. Lymph nodes: Unremarkable. No enlarged lymph nodes. Vasculature: Unremarkable. No aortic aneurysm. Bones/joints: Unremarkable. No acute fracture. Soft tissues: Unremarkable. CT/CT chest wo con [id number] IMPRESSION: 1. Extensive atelectasis involving much of the left lung with evidence of bronchial occlusion. I see no definite evidence of tumor. I am uncertain as to whether this is due to occult tumor versus pneumonia. A lack of IV contrast inhibits the CT evaluation. 2. Small pleural effusions
[2024-05-02 11:40] LABS: Partial Thromboplastin Time 74.5 SECONDS (23.9-36.7)
--- NOTE | 2024-05-02 12:28 | PC.NURSE ---
Per Sendy at the [facility], patient has been accepted to [facility], step down room 6. REport#: [phone] Nurse called report. Spoke to Gisele.
--- NOTE | 2024-05-02 12:55 | P.PN_ITS ---
Subjective 2 Subjective: - Patient was examined this morning -No overnight events reviewed, spoke to overnight hospitalist, she is spoke to patient's mother who said that Teresa is a full code -On examination Teresa is a bit tachyp neic, no nasal flaring no intercostal retractions, she has diminished breath sounds in left upper and left lower lung field ? Nursing staff at bedside ? No aspiration events noted overnight, no choking, no coughing of kept her n.p.o. -Discussed with Teresa that she has wh iteout of her left lung, this could be mucous plugging could be aspiration, early in the morning I had ordered Mucomyst, hypertonic saline and chest vest therapy ? Teresa did not tolerate the chest vest therapy, she received it for about 2 minutes, we discussed giving her morphine and trying again in a few minutes, she is agreeable discussion ?discussed with Leonila that as she continues to have whiteout of the left lung, will I have here at [facility] to help with that is giving her time, Mucomyst, hypertonic saline, chest vest therapy but there is certainly a concern for acute respiratory failure, worsening respiratory status that would likely require intubation, bronchoscopy procedure ? I would prefer for her to be evaluated at a center that could offer her bronchoscopy sooner rather than later if she indeed needs that ? Overall she is diuresed quite well, she was -5 L yesterday after Lasix, she is -3 L this morning, ? Discussed that she has required multiple electrolyte replacements overnight, will continue to monitor electrolytes today ? Discussed her echocardiogram findings, EF is down to 32% this could be STEMI versus Takotsubo cardiomyopathy given her sepsis second to UTI, pneumonia, sacral decubitus ulcer, C. difficile colitis Ultimately were medically managing her with aspirin, Plavix, heparin she will require a cardiac catheterization at some point, cardiology is involved, certainly she is going to require stabilization of other factors before we proceed with coronary angiography ? Overall the plan would be to continue antibiotics and watch her inflammatory markers her white blood cell count is down to 11.32, which is positive as it was high as 19, so far her urine cultures have been negative for bacterial infection, but she does have a history of urostomy has a history of sepsis secondary UTI her urine cultures are growing yeast species she is on fluconazole ? On her last chest x-ray she did have patchy airspace disease, left greater than right, she is on vancomycin, meropenem, her whiteout of her left lung could be from pneumonia, but bronchoscopy would be the only way to know 100% ? She does have a sacral decubitus ulcer that could also be a source of her initial sepsis she is on antibiotics, conservative intervention ? For her CHF she is diuresing quite well she is negative this morning also, going to give her another dose of Lasix this morning # Ultimately the concern is with the right over left lung could be from mucous plugging, aspiration, could be from her pneumonia, will try chest vest therapy again this morning, with Mucomyst, hypertonic saline, if this does not improve the whiteout of the left lung would recommend for her to be evaluated at tertiary level center with a has pulmonary, that has ability of bronchoscopy ? However given that she has had NSTEMI versus Takotsubo cardiomyopathy she has sepsis she has heart failure certainly a bronchoscopy would be high risk procedure and this should not be taken lightly, however if her lung does not open up besides Mucomyst/hypertonic saline/chest vest therapy there is not much else I can offer here at [facility] and there is a risk of worsening respiratory status, respiratory failure, morbidity and mortality associated ? She voiced understanding, all questions answered, agrees to proceed to transfer -Repeat chest vest therapy she only coul d tolerate for about 5 minutes, Mucomyst, hypertonic saline repeat chest x-ray shows persistent whiteout of the left lung, given this transfer was initiated ? Overnight hospitalist spoke to [facility] transfer line, spoke to supervisor roving department Dr. goldsmith, there is a question about patient's CODE STATUS I have confirmed with Teresa that she is a full code and her mother says that she is a full code # Spoke to [facility] again, spoke to their hospitalist, patient will be accepted to the hospitalist service, will be transferred for the need for pulmonary evaluation, bronchoscopy Vitals/I&O/Wt Last Vital Signs Temp 97.9 F 05/02/24 06:05 Pulse 110 H 05/02/24 10:08 Resp 20 H 05/02/24 10:08 BP 97/64 05/02/24 06:05 Pulse Ox 93 05/02/24 10:08 O2 Del Method Nasal Cannula 05/02/24 10:08 O2 Flow Rate 3 05/02/24 10:08 05/01/24 05/02/24 05/02/24 22:59 06:59 14:59 Intake Total 2201.333 / 3384.108 384.9784 / 4148.0899 167.867 / 167.867 Output Total 2150 / 4600 1000 / 5600 Balance 51.333 / -1215.134 -236.7761 / -1451.9101 167.867 / 167.867 Weight last 48 hrs Weight 62 kg Weight 64.365 kg Physical Exam 2 Const: COMMON NORMALS: no acute distress and patient oriented x3 Resp: COMMON NORMALS: normal respiratory effort, No retractions and No use of accessory muscles OTHER: Decreased air movement and breath sounds left upper left lower lung nicholas Cardio: COMMON NORMALS: regular rate, regular rhythm, S1 normal heart sound present and S2 normal heart sound present RATE: regular rate RHYTHM: r egular rhythm HEART SOUNDS: S1 normal heart sound present and S2 normal heart sound present GI: COMMON NORMALS: Normal to inspection, nondistended, normoactive bowel sounds present and non-tender Extremity: COMMON NORMALS: no pedal edema Neuro: COMMON NORMALS: patient oriented x3 and CN's II-XII intact bilaterally Psych: COMMON NORMALS: mental status grossly normal Data 05/02/24 04:06 05/02/24 08:45 Micro: Microbiology 04/28/24 07:34 Urine Culture - Final Urine,Clean Catch Gabrielle albicans A&P Assessment and plan (1) Sepsis: (2) Hypokalemia: (3) Sacral decubitus ulcer: (4) Transaminitis: (5) Acute anemia: (6) C. difficile colitis: (7) Ischemic cardiomyopathy: (8) Recent ST elevation myocardial infarction (STEMI): (9) CHF exacerbation: (10) Collapse of left lung: Plan Left lung collapse -Whiteout of left lung -Could not tolerate chest vest therapy but did receive 5 minutes with Mucomyst, hypertonic saline, repeat chest x-ray shows whiteout of left lung -Etiology include mucous plugging, aspiration, pneumonia -Kept n.p.o. -Continue Mucomyst, hypertonic saline, chest vest as she can tolerate -Serial chest x-rays -Monitor respiratory status closely -ct chest ordered -Transfer to [facility] for pulmonary evaluation, possible bronchoscopy CHF exacerbation, elevated BNP, hypoxic requiring 3 L - -5 L yesterday -Systolic -Lasix 40 IV twice daily, with albumin -Levophed maintain MAP in the 65 C. difficile colitis p.o. vancomycin Sepsis, resolving -Multifactorial from UTI -Gabrielle UTI -Pneumonia, healthcare associated pneumonia -Sacral decubitus ulcer ? PICC line tip culture so far negative Urinary tract infection -Follow urine cultures, history of Proteus ESBL, Pseudomonas ? Continue vancomycin, meropenem ? Evidence of yeast species, continue Diflucan Pneumonia ? Continue vancomycin, meropenem ? Follow blood cultures ? Monitor respiratory status closely Sacral decubitus ulcer, measuring 10 x 10 cm, with evidence of tunneling, ? Ordered inflammatory markers, CRP 153.4, Pro-Collins 0.1, sed rate 49 ? Continue wound care, repositioning ? Continue vancomycin, meropenem Acute anemia with evidence of iron deficiency anemia ? Status post 1 unit PRBC ? Protonix, Carafate ? Hemoccult stool positive ? Monitor hemoglobin as patient is on heparin, Plavix STEMI vs takotsubo cardiomyopathy # Baseline troponin over 2600 # EKG showing Q waves # No chest pain complaints # No cardiovascular history ? Continue aspirin, statin, Plavix # Continue heparin drip # Cardiac echocardiogram CONCLUSIONS Severe diffuse hypokinesia of the mid and apical septum, anteroseptum, inferior and lateral wall segments. LV ejection fraction around 32%. Moderately dilated LV cavity. Moderately increased left atrial size. Mild-moderate mitral valve regurgitation. There is no pericardial effusion. No obvious intracardiac masses. No similar previous studies are available for comparison # Spoke to cardiology, cardiology consulted -Plan for medical management, will consider coronary angiography based on clinical progress Hypokalemia replace IV Hypophosphatemia, replace Episodes of hypotension status post fluid bolus, midodrine, monitor Complaints of fatigue, malaise, nausea, vomiting ? Monitor Constipation Multiple sclerosis, will resume hypertension, baclofen, gabapentin Lower extremity paralysis, Pressure sore, frequent repositioning. Oral intake as tolerating. Add protein supplements. Urostomy, Epilepsy, continue lacosamide, Keppra Recurrent UTI: Hold methenamine while on antibiotics Recent hospitalization earlier this month with sepsis, UTI, acute encephalopathy Smoking: She has tried quitting, but it has been difficult, is still smoking. She is agreeable to nicotine supplementation while in the hospital. Spoke to patient, spoke to nursing staff, spoke to cardiology Attestations 2 Medical Necessity Statement*: Patient requires hospitalization for left lung collapse, fluid overload, STEMI versus Takotsubo cardiomyopathy, UTI, pneumonia, sacral decubitus ulcer, Diagnoses Sepsis A41.9 Hypokalemia E87.6 Sacral decubitus ulcer L89.159 Transaminitis R74.01 Acute anemia D64.9 C. difficile colitis A04.[address]schemic cardiomyopathy [address]25[address] elevation myocardial infarction (STEMI) CHF exacerbation I50.9 Collapse of left lung J98.11
--- NOTE | 2024-05-02 13:17 | P.TS_ITS ---
Transfer Summary Providers Date of Admission: 04/28/24 13:11 Date of Discharge/Transfer: 05/02/24 Attending Provider at Admission: Smith Jaramillo Attending Provider at Transfer: Rich Hebert MD Primary Care Provider: Tony Keys MD Transfer Plans: Anticipated date of transfer: 05/02/24 . Diagnoses at Discharge Discharge Diagnosis (1) Sepsis: Status: Resolved (2) Hypokalemia: Status: Resolved (3) Sacral decubitus ulcer: Status: Acute (4) Transaminitis: Status: Acute (5) Acute anemia: Status: Acute (6) C. difficile colitis: Status: Acute (7) Ischemic cardiomyopathy: Status: Acute (8) Recent ST elevation myocardial infarction (STEMI): Status: Acute (9) CHF exacerbation: Status: Acute (10) Collapse of left lung: Status: Acute Reason for Visit Reason for Visit ABD PAIN Hospital Course Hospital Course This is a 54-year-old female with a past medical history of multiple sclerosis, lower extremity paralysis pressure sores, urostomy epilepsy, recent hospitalization for sepsis secondary UTI urine cultures growing Proteus ESBL wi th PICC line in place discharged on Zosyn, subclinical seizures, hyponatremia, hypokalemia, who presents [facility] for nausea, vomiting, generalized abdominal pain, malaise Patient had a prolonged hospital course, please look at my last progress notes for further detail Patient was admitted to [facility] initially for sepsis concerning UTI, healthcare associated pneumonia, sacral decubitus ulcer. Patient was admitted to [facility], receiving broad-spectrum antibiotic therapy, so far blood cultures have had no growth, urine cultures have been lackluster although growing Gabrielle species, fluconazole was added to antibiotic regimen. Her leukocytosis has improved, continuing antibiotic therapy on transfer to [facility] History of complicated UTIs, ESBL infections, recently completed antibiotic course for ESBL infection history of urostomy Concerns for pneumonia, on broad-spectrum antibiotic therapy, now with left lung collapse, CT of the chest showing evidence of extensive atelectasis involving the left lung, with evidence of bronchial occlusion, likely secondary to pneumonia. On transfer she was on vancomycin, meropenem, will require bronchoscopy at tertiary level center Patient's hospitalization was complicated with STEMI completed versus Takotsubo cardiomyopathy, medically managed, aspirin, statin, Plavix, heparin drip. EF d own to 32%, cardiology is consulted, currently being medically managed eventually when she is clinically stable from her medical problems as above, can certainly pursue stress testing versus coronary angiography Sacral decubitus ulcer, receiving broad-spectrum antibiotic therapy as above, wound care Acute anemia with evidence of iron deficiency anemia, status post 1 unit PRBC Hemoccult stools positive, remains on heparin drip and Plavix for completed STEMI/Takotsubo cardiomyopathy, remains on heparin drip, so far no bloody or black stools, no significant hemodynamic compromise. Continue Protonix, Carafate, monitor hemoglobin closely as patient is on anticoagulant and antiplatelet therapy Hypokalemia, hypophosphatemia being replaced Due to development of left lung whiteout, CT of the chest showing left lung atelectasis with concerns for bronchial occlusion, likely from underlying pneumonia but cannot rule out underlying tumor, failed chest vest, hypertonic saline, Mucomyst, transfer to tertiary level center for bronchoscopic evaluation Physical Exam Const: COMMON NORMALS: no acute distress and patient oriented x3 Resp: COMMON NORMALS: normal respiratory effort, No retractions and No use of accessory muscles OTHER: Decreased air movement left upper and left lower lung field Cardio: COMMON NORMALS: regular rate, regular rhythm, S1 normal heart sound present and S2 normal heart sound present RATE: regular rate RHYTHM: regular rhythm HEART SOUNDS: S1 normal heart sound present and S2 normal heart sound present GI: COMMON NORMALS: Normal to inspection, nondistended, normoactive bowel sounds present and non-tender Extremity: COMMON NORMALS: no pedal edema Neuro: COMMON NORMALS: patient oriented x3 Psych: COMMON NORMALS: mental status grossly normal TS Data Studies Completed and Pending Pending at discharge Category Date Time Status CT chest con [id number] Routine Cat Scan 05/02/24 11:22 Ordered Blood Culture Stat Lab 04/28/24 07:10 Results C Reactive Protein AM LABS Lab 05/03/24 04:00 Ordered Complete Blood Count w/Auto AM LABS Lab 05/03/24 04:00 Ordered Complete Blood Count w/Auto AM LABS Lab 05/04/24 04:00 Ordered Comprehensive Metabolic Panel AM LABS Lab 05/03/24 04:00 Ordered Comprehensive Metabolic Panel AM LABS Lab 05/04/24 04:00 Ordered KEPPRA [Levetiracetam Immunoassy] Routine Lab 04/28/24 04:56 Received Lactate (Lactic Acid level) AM LABS Lab 05/03/24 04:00 Ordered Magnesium AM LABS Lab 05/03/24 04:00 Ordered NT Pro B Type Natriuretic Pept QAM Lab 05/03/24 06:00 Ordered Phosphorus AM LABS Lab 05/03/24 04:00 Ordered Platelet Count Q2D Lab 05/04/24 04:00 Ordered Procalcitonin AM LABS Lab 05/03/24 04:00 Ordered Sputum Culture and Gram Stain Routine Lab 04/28/24 18:00 Uncollected Completed Studies During Hospitalization Category Date Time Status CT abdomen pelvis wo con [id number] Stat Cat Scan 04/28/24 06:12 Completed CXRP [XR chest 1V portable [id number]] Routine Exams 05/01/24 09:21 Completed XR abdomen 1V* [id number] Stat Exams 04/28/24 04:28 Completed XR chest 1V portable [id number] Routine Exams 05/01/24 08:01 Completed XR chest 1V portable [id number] Routine Exams 05/02/24 09:12 Completed XR chest 1V portable [id number] Stat Exams 04/28/24 05:14 Completed XR chest 1V portable [id number] Stat Exams 05/02/24 03:20 Completed MR MRCP [id number] Stat MRI 04/28/24 08:59 [place] [id number] Routine Ultrasound 04/30/24 06:03 Completed CV. echo complete* [id number] Stat Ultrasound 04/30/24 05:58 Completed [place] liver [id number] Stat Ultrasound 04/28/24 07:28 Completed Laboratory Last Values WBC 11.32 10^3/uL (3.29-11.43) 05/02/24 04:06 RBC 3.24 10^6/uL (3.85-5.65) L 05/02/24 04:06 Hgb 8.60 g/dL (11.27-16.99) L 05/02/24 04:06 Hct 27.1 % (36-47) L 05/02/24 04:06 MCV 83.6 fl (85-98) L 05/02/24 04:06 MCH 26.5 pg (27-33) L 05/02/24 04:06 MCHC 31.7 g/dL (30-55) 05/02/24 04:06 RDW 17.7 % (12.1-15.1) H 05/02/24 04:06 Plt Count 536 10^3/cmm (157-399) H 05/02/24 04:06 MPV 9.1 fL (7.4-10.4) 05/02/24 04:06 Neut % (Auto) 76.9 % 05/02/24 04:06 Lymph % (Auto) 11.0 % 05/02/24 04:06 Motley % (Auto) 9.6 % 05/02/24 04:06 Eos % (Auto) 1.5 % 05/02/24 04:06 Baso % (Auto) 0.2 % 05/02/24 04:06 Neut # (Auto) 8.70 10^3/uL (1.8-7.7) H 05/02/24 04:06 Lymph # (Auto) 1.3 10^3/uL (0.8-4.8) 05/02/24 04:06 Motley # (Auto) 1.1 10^3/uL (0.2-0.9) H 05/02/24 04:06 Eos # (Auto) 0.2 10^3/uL (0.0-0.8) 05/02/24 04:06 Baso # (Auto) 0.0 10^3/uL (0.0-0.1) 05/02/24 04:06 Nucleated RBC % (auto) 0 % 05/02/24 04:06 Nucleated RBCs # 0.0 /100WBC 05/02/24 04:06 ESR 49 mm/hr (0-15) H 04/30/24 04:46 PT 14.50 SECONDS (12.1-14.9) 04/29/24 06:23 INR 1.10 (0.8-1.2) 04/29/24 06:23 APTT 74.5 SECONDS (23.9-36.7) H 05/02/24 11:13 Specimen Type Arterial 05/02/24 06:15 Sample Site Brachial, left 05/02/24 06:15 ABG pH 7.50 (7.35-7.45) H 05/02/24 06:15 ABG pCO2 27.0 mmHg (35-45) L 05/02/24 06:15 ABG pO2 71.1 mmHg (80.0-100.0) L 05/02/24 06:15 ABG HCO3 20.8 mmol/L (22-26) L 05/02/24 06:15 ABG O2 Saturation 95.6 05/02/24 06:15 ABG Base Excess -1.9 mmol/L (-2.0-2.0) 05/02/24 06:15 Andrews Test N/a 05/02/24 06:15 A-a O2 Gradient 5.8 mmHg (5-10) 05/02/24 06:15 Hematocrit 25.9 % (37-47) L 05/02/24 06:15 Hgb O2 Saturation 94.2 % (95-100) L 05/02/24 06:15 Carboxyhemoglobin 1.1 %THgb (0.4-20.1) 05/02/24 06:15 Methemoglobin 0.4 % (0.4-1.5) 05/02/24 06:15 Total Hemoglobin 8.4 g/dL (12-16) L 05/02/24 06:15 Sodium 136.0 mmol/L (131-143) 05/02/24 06:15 Potassium 3.4 mmol/L (3.5-5.0) L 05/02/24 06:15 Glucose 98.0 mg/dL (70-115) 05/02/24 06:15 Ionized Calcium 1.0 mmol/L (1.1-1.4) L 05/02/24 06:15 O2 Delivery Device Nc 05/02/24 06:15 O2 Liters/Min 4.0 % 05/02/24 06:15 Undercover Cop ID Abdiel 05/02/24 06:15 Sodium 134 mmol/L (136-145) L 05/02/24 08:45 Potassium 3.5 mmol/L (3.5-5.1) 05/02/24 08:45 Chloride 101 mmol/L (98-107) 05/02/24 08:45 Carbon Dioxide 19 mmol/L (22-29) L 05/02/24 08:45 Anion Gap 17.5 (5-19) 05/02/24 08:45 BUN 6 mg/dL (6-20) 05/02/24 08:45 Creatinine 0.2 mg/dL (0.5-0.9) L 05/02/24 08:45 GFR Calculation 370.1 mL/min (90-130) H 05/02/24 08:45 Glucose 92 mg/dL (65-115) 05/02/24 08:45 Calculated Osmolality 275 mOsm/kg (285-295) L 05/02/24 08:45 Lactic Acid 1.1 mmol/L (0.5-2.2) 04/28/24 04:56 Lactate 1.4 mmol/L (0.5-2.2) 05/02/24 04:06 Calcium 7.5 mg/dL (8.5-10.5) L 05/02/24 08:45 Phosphorus 2.3 mg/dL (2.5-4.5) L 05/02/24 08:45 Magnesium 2.1 mg/dL (1.7-2.3) 05/02/24 08:45 Iron 8 ug/dL (37-145) L 04/30/24 04:46 Ferritin 253 ng/mL (15-150) H 04/30/24 04:46 Total Bilirubin 0.7 mg/dL (0.15-1.2) 05/02/24 04:06 AST 35 U/L (0-32) H 05/02/24 04:06 ALT 18 U/L (0-33) 05/02/24 04:06 Alkaline Phosphatase 120 U/L (35-105) H 05/02/24 04:06 Creatine Kinase 461 U/L (26-192) H* 04/30/24 04:46 Troponin T 5th Gen ng/L 2833 ng/L (0-10) H* 05/01/24 05:16 Troponin T Baseline 2679 ng/L (0-10) H* 04/30/24 04:46 Troponin T 120 Minute 2540 ng/L (0-10) H 04/30/24 09:25 Delta Troponin T -139 ABS# (0-10) L 04/30/24 09:25 Troponin T Hi Sens 6Hr 2339 ng/L (0-10) H 04/30/24 10:47 Troponin T Hi Sens 6Hr Delta -340 ng/L (0-12) L 04/30/24 10:47 C-Reactive Protein 136.8 mg/L (0.0-4.9) H 05/02/24 04:06 NT-Pro-B Natriuret Pep 64918 pg/mL (0-125) H 05/02/24 04:06 Total Protein 6.3 g/dL (6.6-8.7) L 05/02/24 04:06 Albumin 2.8 g/dL (3.5-5.2) L 05/02/24 04:06 Globulin 3.5 g/dL (1.3-4.6) 05/02/24 04:06 Lipase 44 U/L (13-60) 04/28/24 04:56 Procalcitonin 0.09 ng/mL (0-0.5) 05/02/24 04:06 Urine Color Yellow (Yellow) 04/28/24 07:34 Urine Appearance Clear (CLEAR) 04/28/24 07:34 Urine pH 7.0 (5-7) 04/28/24 07:34 Ur Specific [place] 1.013 (1.005-1.030) 04/28/24 07:34 Urine Protein Negative (Negative) 04/28/24 07:34 Urine Glucose (UA) Negative (Normal) 04/28/24 07:34 Urine Ketones Negative (Negative) 04/28/24 07:34 Urine Blood 1+ (Negative) A 04/28/24 07:34 Urine Nitrate Negative (Negative) 04/28/24 07:34 Urine Bilirubin Negative (Negative) 04/28/24 07:34 Urine Urobilinogen 0.2 mg/dL (Negative) 04/28/24 07:34 Ur Leukocyte Esterase Trace (Negative) A 04/28/24 07:34 Urine RBC 6-10 /hpf (0-2) 04/28/24 07:34 Urine WBC 21-50 /hpf (0-5) H 04/28/24 07:34 Ur Squamous Epith Cells 0-5 /hpf (0-5) 04/28/24 07:34 Amorphous Sediment Trace /hpf 04/28/24 07:34 Urine Bacteria None seen /hpf (NONE) 04/28/24 07:34 Hyaline Casts 5.77 /lpf 04/28/24 07:34 Urine Mucus Trace /hpf 04/28/24 07:34 Urine Yeast 2+ /hpf H 04/28/24 07:34 Nasal MRSA (PCR) Mrsa detected (Not Detecte) A 04/29/24 00:14 Vancomycin Trough 19.4 ug/mL (10-15) H 04/30/24 17:47 Adenovirus (PCR) Not detected (NOT DETECT) 04/28/24 15:39 C. pneumoniae DNA (PCR) Not detected (NOT DETECT) 04/28/24 15:39 C. difficile (PCR) Positive (Negative) H 04/30/24 15:01 Coronavirus (PCR) Negative (Negative) 04/28/24 06:35 Coronavirus 229E (PCR) Not detected (NOT DETECT) 04/28/24 15:39 Hepatitis A IgM Ab Non-reactive (Nonreactive) 04/28/24 04:56 Hep Bs Antigen Non-reactive (Nonreactive) 04/28/24 04:56 Hep B Core IgM Ab Non-reactive (Nonreactive) 04/28/24 04:56 Hepatitis C Antibody Non-reactive (Nonreactive) 04/28/24 04:56 Human Metapneumovir PCR Not detected (NOT DETECT) 04/28/24 15:39 Influenza A (H1) PCR Not detected (NOT DETECT) 04/28/24 15:39 Influenza A (PCR) Negative (Negative) 04/28/24 06:35 Influ A (H1/09) PCR Not detected (NOT DETECT) 04/28/24 15:39 Influenza A (H3) PCR Not detected (NOT DETECT) 04/28/24 15:39 Influenza Type A (PCR) Not detected (NOT DETECT) 04/28/24 15:39 Influenza Type B (PCR) Not detected (NOT DETECT) 04/28/24 15:39 M. pneumoniae (PCR) Not detected (NOT DETECT) 04/28/24 15:39 Parainfluenza 1 (PCR) Not detected (NOT DETECT) 04/28/24 15:39 Parainfluenza 2 (PCR) Not detected (NOT DETECT) 04/28/24 15:39 Parainfluenza 3 (PCR) Not detected (NOT DETECT) 04/28/24 15:39 Parainfluenza 4 (PCR) Not detected (NOT DETECT) 04/28/24 15:39 RSV (PCR) Negative (Negative) 04/28/24 06:35 RSV Type A (PCR) Not detected (NOT DETECT) 04/28/24 15:39 RSV Type B (PCR) Not detected (NOT DETECT) 04/28/24 15:39 Entero/Rhino (PCR) Not detected (NOT DETECT) 04/28/24 15:39 SARS-CoV-2 (PCR) Not detected (NOT DETECT) 04/28/24 15:39 Blood Type A Positive 04/30/24 06:59 Rho(D) Type Rh positive 04/30/24 06:59 Antibody Screen Positive 04/30/24 06:59 Antibody Identification Anti-C Anti-e Anti-Blanca 04/30/24 06:59 Antibody Identification Anti-C Anti-e Anti-Blanca 04/30/24 06:59 Antibody Identification Anti-C Anti-e Anti-Blanca 04/30/24 06:59 Crossmatch See Detail 04/30/24 06:59 Radiology Impressions Abdomen X-Ray 04/28/24 04:28 IMPRESSION: Imaging findings suggestive of constipation/fecal impaction. Clinical correlation recommended. Abdomen/Pelvis CT 04/28/24 06:12 IMPRESSION: 1. No bowel obstruction. Imaging findings suggestive of constipation and fecal impaction. 2. Bilateral nonobstructive kidney stones. 3. Unchanged patchy airspace opacity with bronchiectasis in the posterior left lower lobe, likely representing atelectasis. Atelectasis pneumonia can have this appearance. Clinical correlation recommended. Liver Ultrasound 04/28/24 07:28 IMPRESSION: 1. Hyperechoic liver, which can be seen with fatty infiltration or hepatocellular disease. 2. Right kidney nonobstructing stones. Cholangiopancreatography MRI 04/28/24 08:59 IMPRESSION: 1. Post cholecystectomy with no biliary dilatation or filling defect in the CBD. 2. No hepatic lesion. COMMENTS: Consistent with the [employer]'s Incidental Findings Committee white paper (J Am Jarad Radiol 2018): Any incidental renal lesion less than 1 cm or classified as too small to characterize, or any incidental cystic renal lesion characterized as simple-appearing, is likely benign. No follow-up imaging is recommended for these lesions per consensus recommendations based on imaging criteria. Chest X-Ray 05/02/24 09:12 IMPRESSION: 1. Grossly stable appearance of the left lung with persistent near complete left hemithorax opacification. Slight tapering of the left mainstem bronchus suspicious for mucus plugging resulting in left lung atelectasis however evaluation is limited on plain radiograph. CT of the chest can be obtained for further evaluation as clinically indicated. 2. Moderate left-sided pleural effusion. Recent Clincial Data Last Vital Signs Temp 97.9 F 05/02/24 06:05 Pulse 110 H 05/02/24 10:08 Resp 20 H 05/02/24 10:08 BP 97/64 05/02/24 06:05 Pulse Ox 93 05/02/24 10:08 O2 Del Method Nasal Cannula 05/02/24 10:08 O2 Flow Rate 3 05/02/24 10:08 Vital Signs Temp Pulse Resp BP Pulse Ox O2 Del Method O2 Flow Rate 05/02/24 10:08 110 H 20 H 93 Nasal Cannula 3 05/02/24 09:04 106 H 26 H 96 Nasal Cannula 3 05/02/24 06:05 97.9 F 98 20 H 97/64 96 05/02/24 06:00 90 05/02/24 05:47 97.9 F 121 H 21 H 89/67 92 05/02/24 02:11 104 H 16 91/59 94 Intake & Output/Weight 04/30/24 05/01/24 05/02/24 05/03/24 06:59 06:59 06:59 06:59 Intake Total 5415 / 5415 3570.767 / 3570.767 4148.0899 / 4148.0899 167.867 / 167.867 Output Total 1925 / 1925 1950 / 1950 5600 / 5600 Balance 3490 / 3490 1620.767 / 1620.767 -1451.9101 / -1451.9101 167.867 / 167.867 Weight 65.635 kg 64.365 kg 62 kg Vitals Last Vital Signs Temp 97.9 F 05/02/24 06:05 Pulse 110 H 05/02/24 10:08 Resp 20 H 05/02/24 10:08 BP 97/64 05/02/24 06:05 Pulse Ox 93 05/02/24 10:08 O2 Del Method Nasal Cannula 05/02/24 10:08 O2 Flow Rate 3 05/02/24 10:08 TS Medications Medications Acetaminophen (Acetaminophen 325 Mg Tablet) 650 mg PO Q6H PRN PRN Reason: Mild/Mod Pain Or Temp >/= 101 Last Admin: 04/29/24 16:36 Dose: 650 mg Acetylcysteine (Acetylcysteine 200 Mg/Ml Mdv 10 Ml) 100 mg INHALATION Q6H.RESP BIJAN Last Admin: 05/02/24 09:04 Dose: 100 mg Albuterol Sulfate (Albuterol 2.5 Mg/3 Ml Neb) 2.5 mg INHALATION Q6H.RESP [facility] Last Admin: 05/02/24 08:59 Dose: 2.5 mg Aspirin (Aspirin 81 Mg Ec Tablet) 81 mg PO DAILY [facility] Last Admin: 05/02/24 09:07 Dose: 81 mg Atorvastatin Calcium (Atorvastatin 40 Mg Tablet) 40 mg PO BEDTIME BIJAN Last Admin: 05/01/24 20:41 Dose: 40 mg Baclofen (Baclofen 10 Mg Tablet) 40 mg PO BEDTIME BIJAN Last Admin: 04/28/24 21:05 Dose: 40 mg Baclofen (Baclofen 10 Mg Tablet) 20 mg PO BID [facility] Last Admin: 05/02/24 09:07 Dose: 20 mg Bisacodyl (Bisacodyl 10 Mg Supp) 10 mg NJ QPM [facility] Last Admin: 05/01/24 17:12 Dose: 10 mg Clopidogrel Bisulfate (Clopidogrel 75 Mg Tablet) 75 mg PO DAILY [facility] Last Admin: 05/02/24 09:07 Dose: 75 mg Gabapentin (Gabapentin 300 Mg Capsule) 300 mg PO TID [facility] Last Admin: 05/02/24 09:07 Dose: 300 mg Guaifenesin (Guaifenesin 100 Mg/5 Ml Udc 10 Ml) 500 mg PO Q4H PRN PRN Reason: Cough Heparin Sodium (Porcine) (Heparin 5,000 Unit/Ml Inj 1 Ml) 0 unit IVP PRN PRN; Protocol PRN Reason: Heparin Weight Based Protocol -Subsequent Bolus Meropenem 2,000 mg/ Sodium (Chloride) 50 mls @ 100 mls/hr IV Q8H [facility]; Protocol Last Infusion: 05/02/24 07:20 Dose: Infused Vancomycin HCl (Vancocin) 1,500 mg in 300 mls @ 200 mls/hr IV Q12H [facility] Last Admin: 05/02/24 06:20 Dose: 200 mls/hr Fluconazole (Diflucan Premix) 200 mg in 100 mls @ 100 mls/hr IV Q24H BIJAN Last Infusion: 05/01/24 23:40 Dose: Infused Heparin Sodium/Sodium Chloride (Heparin Drip) 25,000 unit in 500 mls @ 0 mls/hr IV CONT BIJAN; Protocol Last Titration: 05/02/24 12:22 Dose: 12.19 unit/kg/hr, 16 mls/hr Norepinephrine Bitartrate (Levophed) 4 mg in 250 mls @ 0 mls/hr IV .Q0M [facility]; Protocol Lacosamide (Lacosamide 50 Mg Tablet) 200 mg PO BID [facility] Last Admin: 05/02/24 09:07 Dose: 200 mg Morphine Sulfate (Morphine 4 Mg/Ml Sdv 1 Ml) 2 mg IVP Q4H PRN PRN Reason: SEVERE PAIN Last Admin: 05/02/24 09:15 Dose: 2 mg Nicotine (Nicotine 21 Mg Patch) 1 patch TRANSDERMA Q24H [facility] Last Admin: 05/02/24 09:08 Dose: 1 patch Nicotine Polacrilex (Nicotine 4 Mg Lozenge) 4 mg MUCOUS MEM Q4H PRN PRN Reason: NICOTINE CRAVINGS Nitroglycerin (Nitroglycerin 0.4 Mg Sublingual Tablet) 0.4 mg SUBLINGUAL Q5M PRN PRN Reason: CHEST PAIN Last Admin: 05/01/24 19:31 Dose: 0.4 mg Ondansetron HCl (Ondansetron 2 Mg/Ml Sdv 2 Ml) 4 mg IVP Q6H PRN PRN Reason: NAUSEA AND VOMITING Pantoprazole Sodium (Pantoprazole 40 Mg Sdv) 40 mg IVP Q12H [facility] Last Admin: 05/02/24 11:05 Dose: 40 mg Polyethylene Glycol (Polyethylene Glycol 3350 Pkt 17 Gm) 17 gm PO BID [facility] Last Admin: 05/02/24 09:08 Dose: 17 gm Potassium Phosphate (Phosphorus 250 Mg Tablet) 250 mg PO BID [facility] Last Admin: 05/02/24 11:04 Dose: 250 mg Sodium Chloride (Sodium Chloride 3.5% Neb 4 Ml Neb) 4 ml INHALATION Q6H [facility] Last Admin: 05/02/24 08:59 Dose: 4 ml Sucralfate (Sucralfate 1 Gm Tablet) 1 gm PO Q6H [facility] Last Admin: 05/02/24 11:04 Dose: 1 gm Tramadol HCl (Tramadol 50 Mg Tablet) 50 mg PO Q6H PRN PRN Reason: Pain Vancomycin HCl (Vancomycin 125 Mg Capsule) 125 mg PO QID [facility] Last Admin: 05/02/24 09:06 Dose: 125 mg Venlafaxine HCl (Venlafaxine Er (24hr) 150 Mg Capsule) 150 mg PO DAILY [facility] Last Admin: 05/02/24 09:07 Dose: 150 mg Discontinued Medications Acetylcysteine (Acetylcysteine 200 Mg/Ml Mdv 10 Ml) 100 mg INHALATION Q4H.RESPIRATORY BIJAN Albuterol Sulfate (Albuterol 2.5 Mg/3 Ml Neb) 2.5 mg INHALATION Q6H.RESP BIJAN Clopidogrel Bisulfate (Clopidogrel 300 Mg Tablet) 300 mg PO ONCE ONE Stop: 04/30/24 15:31 Last Admin: 04/30/24 15:47 Dose: 300 mg Enoxaparin Sodium (Enoxaparin 40 Mg/0.4 Ml Syringe) 40 mg SUBCUT DAILY [facility] Last Admin: 04/29/24 08:32 Dose: 40 mg Furosemide (Furosemide 10 Mg/Ml Sdv 4ml) 40 mg IVP Q12H [facility] Stop: 05/01/24 20:16 Last Admin: 05/01/24 19:42 Dose: 40 mg Furosemide (Furosemide 10 Mg/Ml Sdv 4ml) 40 mg IVP ONCE ONE Stop: 05/02/24 08:32 Last Admin: 05/02/24 09:06 Dose: 40 mg Heparin Sodium (Porcine) (Heparin 5,000 Unit/Ml Inj 1 Ml) 0 unit IVP PRN PRN; Protocol PRN Reason: Heparin Weight Based Protocol -Subsequent Bolus Heparin Sodium (Porcine) (Heparin 5,000 Unit/Ml Inj 1 Ml) 0 unit IVP ONCE ONE; Protocol Stop: 04/30/24 05:59 Last Admin: 04/30/24 06:10 Dose: 3,300 unit Heparin Sodium (Porcine) (Heparin 5,000 Unit/Ml Inj 1 Ml) 0 unit IVP ONCE ONE; Protocol Stop: 04/30/24 21:22 Last Admin: 04/30/24 21:56 Dose: Not Given Piperacillin Sod/Tazobactam (Sod 3.375 gm/ Sodium Chloride) 50 mls @ 100 mls/hr IV ONCE ONE; Protocol Stop: 04/28/24 10:02 Last Infusion: 04/28/24 14:54 Dose: Infused Vancomycin HCl / Sodium (Chloride) 250 mls @ 0 mls/hr [id number] PROTOCOL BIJAN; Protocol Sodium Chloride (Sodium Chloride 0.9%) 1,000 mls @ 75 mls/hr IV .[id number] [facility] Last Infusion: 04/30/24 19:00 Dose: Infused Vancomycin HCl (Vancocin) 2,000 mg in 400 mls @ 200 mls/hr IV ONCE ONE Stop: 04/28/24 20:59 Last Infusion: 04/28/24 19:18 Dose: 0 mls/hr Sodium Chloride (Sodium Chloride 0.9%) 500 mls @ 500 mls/hr IV ONCE ONE Stop: 04/28/24 19:38 Last Infusion: 04/28/24 20:44 Dose: Infused Sodium Chloride (Sodium Chloride 0.9%) 500 mls @ 999 mls/hr IV .Q31M ONE Stop: 04/29/24 21:07 Last Infusion: 04/29/24 21:41 Dose: Infused Ciprofloxacin/Dextrose (Cipro) 400 mg in 200 mls @ 200 mls/hr IV Q12H BIJAN; Protocol Last Infusion: 04/30/24 15:24 Dose: Infused Heparin Sodium/Sodium Chloride (Heparin Drip) 25,000 unit in 500 mls @ 0 mls/hr IV CONT BIJAN; Protocol Last Titration: 04/30/24 19:00 Dose: Infused Lidocaine HCl 5 ml/ Potassium (Chloride) 105 mls @ 26.25 mls/hr IV ONCE ONE Stop: 04/30/24 10:14 Last Infusion: 04/30/24 16:11 Dose: Infused Sodium Chloride (Sodium Chloride 0.9%) 250 mls @ 250 mls/hr IV ONCE ONE Stop: 04/30/24 22:21 Last Infusion: 04/30/24 22:45 Dose: Infused Potassium Chloride (K-Mike) 100 mls @ 25 mls/hr IV ONCE ONE Stop: 05/01/24 03:51 Last Infusion: 05/01/24 04:20 Dose: Infused Magnesium Sulfate (Magnesium Sulfate Premix) 2 gm in 50 mls @ 50 mls/hr IV ONCE ONE Stop: 05/01/24 01:26 Last Infusion: 05/01/24 02:05 Dose: Infused Potassium Phosphate 15 mmol/ (Sodium Chloride) 105 mls @ 47 mls/hr IV ONCE ONE Stop: 05/01/24 02:44 Last Infusion: 05/01/24 17:34 Dose: Infused Potassium Phosphate 15 mmol/ (Sodium Chloride) 105 mls @ 47 mls/hr IV ONCE ONE Stop: 05/01/24 09:14 Last Admin: 05/01/24 07:42 Dose: Not Given Albumin Human (Albumin) 25 g in 100 mls @ 60 mls/hr IV Q12H BIJAN Stop: 05/01/24 21:54 Last Infusion: 05/01/24 21:33 Dose: Infused Sodium Chloride (Sodium Chloride 0.9% (100 Ml)) Confirm Administered Dose 100 mls @ as directed .ROUTE .STK-MED ONE Stop: 05/01/24 16:09 Last Infusion: 05/01/24 23:51 Dose: Infused Magnesium Sulfate (Magnesium Sulfate Premix) 2 gm in 50 mls @ 50 mls/hr IV ONCE ONE Stop: 05/01/24 23:55 Last Infusion: 05/02/24 01:04 Dose: Infused Potassium Phosphate 30 mmol/ (Sodium Chloride) 110 mls @ 25 mls/hr IV ONCE ONE Stop: 05/02/24 03:20 Potassium Phosphate 40 meq/ (Sodium Chloride) 109.0909 mls @ 27.25 mls/hr IV ONCE ONE Stop: 05/02/24 04:16 Last Infusion: 05/02/24 05:55 Dose: Infused Albumin Human (Albumin) 25 g in 100 mls @ 60 mls/hr IV ONCE ONE Stop: 05/02/24 10:10 Last Admin: 05/02/24 09:01 Dose: 60 mls/hr Meropenem (Meropenem 1,000 Mg Sdv) 1,000 mg IVP ONCE ONE; Protocol Stop: 04/28/24 13:22 Last Admin: 04/28/24 14:55 Dose: 1,000 mg Midodrine (Midodrine 5 Mg Tablet) 10 mg PO ONCE STA Stop: 04/29/24 21:51 Last Admin: 04/29/24 21:59 Dose: 10 mg Nicotine (Nicotine 21 Mg Patch) 1 patch TRANSDERMA Q24H BIJAN Last Admin: 05/01/24 00:36 Dose: Not Given Potassium Chloride (Potassium Chloride Er 20 Meq Tablet) 20 meq PO ONCE ONE Stop: 04/30/24 06:01 Last Admin: 04/30/24 06:25 Dose: 20 meq Potassium Chloride (Potassium Chloride Er 20 Meq Tablet) 40 meq PO ONCE ONE Stop: 04/30/24 23:50 Last Admin: 05/01/24 00:15 Dose: 40 meq Potassium Chloride (Potassium Chloride Er 20 Meq Tablet) 40 meq PO ONCE ONE Stop: 05/01/24 22:58 Last Admin: 05/01/24 23:36 Dose: 40 meq Potassium Chloride (Potassium Chloride Er 20 Meq Tablet) 40 meq PO ONCE ONE Stop: 05/02/24 03:19 Last Admin: 05/02/24 03:31 Dose: 40 meq Potassium Chloride (Potassium Chloride Er 20 Meq Tablet) 40 meq PO ONCE ONE Stop: 05/02/24 08:32 Last Admin: 05/02/24 09:11 Dose: Not Given Potassium Chloride (Potassium Chloride Er 20 Meq Tablet) 40 meq PO ONCE ONE Stop: 05/02/24 09:11 Last Admin: 05/02/24 09:15 Dose: 40 meq Potassium Phosphate (Phosphorus 250 Mg Tablet) 500 mg PO BID [facility] Stop: 05/01/24 09:01 Last Admin: 05/01/24 00:56 Dose: 500 mg Potassium Phosphate (Phosphorus 250 Mg Tablet) 500 mg PO BID [facility] Stop: 05/01/24 06:01 Last Admin: 05/01/24 05:21 Dose: 500 mg Potassium Phosphate (Phosphorus 250 Mg Tablet) 500 mg PO ONCE ONE Stop: 05/01/24 23:25 Potassium Phosphate (Phosphorus 250 Mg Tablet) 500 mg PO ONCE ONE Stop: 05/02/24 03:01 Sodium Chloride (Sodium Chloride 0.9% 100 Ml Bag) 50 ml IV PRN PRN PRN Reason: Blood transfusion prime and flush Stop: 05/01/24 06:00 Allergies No Known Allergies Allergy (Verified 04/23/24 13:30) Home Medications loratadine 10 mg tablet 10 mg PO DAILY@08 03/02/21 [History Confirmed 04/28/24] sodium phosphates 19 gram-7 gram/118 mL enema (Fleet Enema) 118 ml [place] DAILY PRN Constipation 03/02/21 [History Confirmed 04/28/24] potassium chloride 20 mEq tablet,extended release 20 meq PO BID@08,17 04/20/21 [History Confirmed 04/28/24] guaifenesin 200 mg/5 mL oral liquid 500 mg PO Q4H PRN Cough 09/16/21 [History Confirmed 04/28/24] Lactobacillus acidophilus 1 billion cell capsule 1,000 mmu cells PO BID 01/19/22 [History Confirmed 04/28/24] fluticasone 500 mcg-salmeterol 50 mcg/dose blistr powdr for inhalation (Advair Diskus) 1 inh inhalation BID 01/19/22 [History Confirmed 04/28/24] gabapentin 300 mg capsule 300 mg PO TID 01/19/22 [History Confirmed 04/28/24] magnesium hydroxide 400 mg/5 mL oral suspension 30 ml PO BID PRN Constipation 01/19/22 [History Confirmed 04/28/24] polyethylene glycol 3350 17 gram/dose oral powder (Miralax) 4 g PO DAILY 01/19/22 [History Confirmed 04/28/24] omeprazole 20 mg capsule,delayed release 20 mg PO DAILY 05/12/22 [History Confirmed 04/28/24] lacosamide 200 mg tablet (Vimpat) 200 mg PO BID 05/13/22 [History Confirmed 04/28/24] melatonin 5 mg tablet 5 mg PO BEDTIME 05/13/22 [History Confirmed 04/28/24] simethicone 80 mg chewable tablet 80 mg PO QID PRN Gastrointestinal Spasms Or Cramping 05/13/22 [History Confirmed 04/28/24] venlafaxine 150 mg capsule,extended release 24 hr (Effexor XR) 150 mg PO DAILY 05/13/22 [History Confirmed 04/28/24] baclofen 20 mg tablet 20 mg PO BID 11/08/23 [History Confirmed 04/28/24] baclofen 20 mg tablet 40 mg PO BEDTIME 11/08/23 [History Confirmed 04/28/24] levetiracetam 1,000 mg tablet (Keppra) 1,500 mg PO BID 11/08/23 [History Confirmed 04/28/24] nystatin 100,000 unit/gram topical cream 1 applic topical QAM PRN SCALY AREA 12/19/23 [History Confirmed 04/28/24] albuterol sulfate 90 mcg/actuation aerosol inhaler (Ventolin HFA) 1 inh inhalation Q8H PRN Shortness Of Breath 04/04/24 [History Confirmed 04/28/24] ondansetron HCl 4 mg tablet 4 mg PO Q4H PRN Nausea And Vomiting 04/04/24 [History Confirmed 04/28/24] acetaminophen 325 mg tablet 650 mg PO Q6H Pain 04/09/24 [History Confirmed 04/28/24] levetiracetam 500 mg tablet 500 mg PO BID 04/09/24 [History Confirmed 04/28/24] sennosides 8.6 mg-docusate sodium 50 mg tablet (Stool Softener-Laxative) 2 tab PO BID #120 tabs 04/13/24 [Rx Confirmed 04/28/24] piperacillin-tazobactam 3.375 gram intravenous solution 3.375 g IV Q8H 04/23/24 [History Confirmed 04/28/24] tramadol 50 mg tablet 50 mg PO Q6H PRN Pain 04/23/24 [History Confirmed 04/28/24] methenamine hippurate 1 gram tablet 1 g PO QID 04/28/24 [History Confirmed 04/28/24] sodium phosphates 19 gram-7 gram/118 mL enema (Fleet Enema) 118 ml NJ DAILY PRN Constipation 04/28/24 [History Confirmed 04/28/24] Discharge Plan Discharge Patient Disposition: Xfer Other Condition: Stable Prescriptions: No Action potassium chloride 20 mEq tablet extended release 20 meq PO BID@08,17 polyethylene glycol 3350 [Miralax] 17 gram/dose powder 4 g PO DAILY fluticasone propion-salmeterol [Advair Diskus] 500-50 mcg/dose blister with device 1 inh inhalation BID Lactobacillus acidophilus 1 billion cell capsule 1,000 mmu cells PO BID gabapentin 300 mg capsule 300 mg PO TID magnesium hydroxide 400 mg/5 mL suspension 30 ml PO BID PRN (Reason: Constipation) levetiracetam [Keppra] 1,000 mg tablet 1,500 mg PO BID Rx Instructions: along with 500mg tablet to = 1500mg guaifenesin 200 mg/5 mL liquid 500 mg PO Q4H PRN (Reason: Cough) baclofen 20 mg tablet 40 mg PO BEDTIME lidocaine HCl [Lidocaine Viscous] 2 % solution 1 applic topical ONCE Qty: 1 0RF tramadol 50 mg tablet 50 mg PO Q6H PRN (Reason: Pain) piperacillin-tazobactam 3.375 gram recon soln 3.375 g IV Q8H nystatin 100,000 unit/gram cream 1 applic topical QAM PRN (Reason: SCALY AREA) loratadine 10 mg tablet 10 mg PO DAILY@08 Fleet Enema 19-7 gram/118 mL Enema 118 ml NJ DAILY PRN (Reason: Constipation) albuterol sulfate [Ventolin HFA] 90 mcg/actuation HFA aerosol inhaler 1 inh INHALATION Q8H PRN (Reason: Shortness Of Breath) ondansetron HCl 4 mg tablet 4 mg PO Q4H PRN (Reason: Nausea And Vomiting) omeprazole 20 mg capsule,delayed release(DR/EC) 20 mg PO DAILY venlafaxine [Effexor XR] 150 mg Capsule,Extended Release 24hr 150 mg PO DAILY lacosamide [Vimpat] 200 mg Tablet 200 mg PO BID simethicone 80 mg Tablet,Chewable 80 mg PO QID PRN (Reason: Gastrointestinal Spasms Or Cramping) melatonin 5 mg Tablet 5 mg PO BEDTIME baclofen 20 mg tablet 20 mg PO BID Rx Instructions: AM and NOON acetaminophen 325 mg Tablet 650 mg PO Q6H levetiracetam 500 mg tablet 500 mg PO BID Rx Instructions: along with 1000mg tablet to = 1500mg sennosides-docusate sodium [Stool Softener-Laxative] 8.6-50 mg Tablet 2 tab PO BID Qty: 120 0RF methenamine hippurate 1 gram tablet 1 g PO QID Fleet Enema 19-7 gram/118 mL Enema 118 ml NJ DAILY PRN (Reason: Constipation) Discharge Orders: Discharge Order (Routine); Ordered 05/02/24 Ordered By: Rich Hebert Referrals: Tony Keys MD [Primary Care Provider] - Transfer Attestations Time Spent in Transfer Care: greater than 30 min Status at Transfer: Cognitive status at transfer: cognitively intact ; Behavioral status at transfer: cooperative ; Quality Metrics Clinical Quality Measures [ No reported AMI, CVA or VTE this stay] Coding Level of Care Code 92147 Total time (in minutes) for Discharge: 45 Diagnoses Sepsis A41.9 Hypokalemia E87.6 Sacral decubitus ulcer L89.159 Transaminitis R74.01 Acute anemia D64.9 C. difficile colitis A04.72 Ischemic cardiomyopathy I25.[address] elevation myocardial infarction (STEMI) CHF exacerbation I50.9 Collapse of left lung J98.11
[2024-05-02 16:06] LABS: Blood Urea Nitrogen 5 mg/dL (6-20); Calcium 7.5 mg/dL (8.5-10.5); Carbon Dioxide 22 mmol/L (22-29); Chloride 101 mmol/L (98-107); Creatinine Clr Calc Pharmacy 320.5232; Glomerular Filtration Rate 370.1 mL/min (90-130); Glucose 83 mg/dL (65-115); Osmolality Calculated 278 mOsm/kg (285-295); Phosphorus 1.9 mg/dL (2.5-4.5); Sodium 136 mmol/L (136-145)
[2024-05-02 16:08] LABS: Anion Gap 16.6 (5-19); Potassium 3.6 mmol/L (3.5-5.1)
--- NOTE | 2024-05-02 17:01 | PC.NURSE ---
Shift SUmmary: Uneventful shift. TOtal urine output: 2300mL. remains on heparin drip. Pending transfer to [facility] for pulmonology/bronchoscopy. Accepted to [facility], stepdown bed 6. SPoke to Sendy in the transfer center. Report given to Gisele at [phone]. Transport arranged with [facility], spoke to shaye in communications. [phone]. Currently still waiting on transport at time of this note.
--- NOTE | 2024-05-02 18:18 | PC.NURSE ---
Patient transferred via [facility]. PTT was drawn before patient left facility, result to be given to [facility] for titration en route. [employer]- [phone] Nurse called [facility], spoke to katrina. Advised patient is now en route. and will have a heparin titration en route.
[2024-05-02 18:33] LABS: Partial Thromboplastin Time 71.3 SECONDS (23.9-36.7)
--- NOTE | 2024-05-02 18:42 | PC.NURSE ---
PTT resulted, 71.3. WIthin therapeutic range and no titration needed. Nurse attempted to call Mica [employer]er [employer] to alert him to this. Unable to reach him (he stated he may not have good service en route). Nurse called [facility] and spoke to Isidro, requested he alert plush dresser via radio that no titration of heparin is needed.
--- NOTE | 2024-05-02 18:45 | PC.NURSE ---
NUrse offered to call a friend or family to alert them of facility transfer. Patient refused.
--- NOTE | 2024-05-02 19:56 | P.PN_ITS ---
Subjective 2 Subjective: Patient denies chest pain. Has left lung atelectasis/bronchial occlusion. Vitals/I&O/Wt Last Vital Signs Temp 99.5 F 05/02/24 18:44 Pulse 106 H 05/02/24 18:44 Resp 20 H 05/02/24 18:44 BP 95/60 05/02/24 18:44 Pulse Ox 100 05/02/24 18:44 O2 Del Method Nasal Cannula 05/02/24 10:08 O2 Flow Rate 3 05/02/24 10:08 05/02/24 05/02/24 05/02/24 06:59 14:59 22:59 Intake Total 763.2239 / 4148.0899 167.867 / 167.867 300 / 467.867 Output Total 1000 / 5600 2300 / 2300 Balance -236.7761 / -1451.9101 167.867 / 167.867 -2000 / -1832.133 Weight last 48 hrs Weight 136 lb 10.986 oz Weight 141 lb 14.4 oz Physical Exam 2 Narrative: GENERAL: Alert and oriented x3 RESPIRATORY: Diminished air entry bilaterally HEART: The heart sounds are normal. Grade 3/6 systolic murmur EXTREMITIES: Bilateral 2+ edema. Peripheral pulses are palpable but weak bilaterally in the lower extremities NEUROPSYCHIATRIC: Patient is paraplegic. Alert and oriented x 3 Data 05/02/24 04:06 05/02/24 15:41 Micro: Microbiology 04/28/24 07:34 Urine Culture - Final Urine,Clean Catch Gabrielle albicans A&P Assessment and plan (1) Recent myocardial infarction: (2) Tobacco abuse: (3) Hypertension: Qualifiers: Hypertension type: primary hypertension Qualified Code(s): I10 - Essential (primary) hypertension (4) Tachycardia: (5) Hypokalemia: Plan Patient is stable from cardiac standpoint. no changes to medications. Plan for transfer to tertiary care facility for bronchoscopic evaluation as has left lung collapse Thank you for involving us with care of this patient. We will continue to follow. Please call with questions. Attestations 2 Medical Necessity Statement*: Care expected to cross 2 midnights. Coding Level of Care Code Acute Code for Chg Fwd Diagnoses Recent myocardial infarction Tobacco abuse Z72.0 Primary hypertension I10 Hypertension type: primary hypertension Tachycardia R00.0 Hypokalemia E87.6
== END 2024-05-02 18:00 | disposition short-term general hospital (02) | DRG 871 ==
LOC: ER 11:05 → MEDSURG 14:32 → ICU 04-30 07:36
PROVIDERS: Emergency Medicine; Internal Medicine; Internal Medicine Cardiovascular Disease; Admitting Provider Internal Medicine; Emergency Provider Family Medicine; PCP Internal Medicine; Visit Provider Family Medicine
DX: A41.9 Sepsis, unspecified organism (principal); I21.09 ST elevation (STEMI) myocardial infarction involving other coronary artery of anterior wall; J18.9 Pneumonia, unspecified organism; I50.23 Acute on chronic systolic (congestive) heart failure; T83.518A Infection and inflammatory reaction due to other urinary catheter, initial encounter; B37.49 Other urogenital candidiasis; A04.72 Enterocolitis due to Clostridium difficile, not specified as recurrent; J98.11 Atelectasis; G82.20 Paraplegia, unspecified; R65.20 Severe sepsis without septic shock; L89.156 Pressure-induced deep tissue damage of sacral region; I11.0 Hypertensive heart disease with heart failure; G35 Multiple sclerosis; G40.909 Epilepsy, unspecified, not intractable, without status epilepticus; N31.9 Neuromuscular dysfunction of bladder, unspecified; K21.9 Gastro-esophageal reflux disease without esophagitis; F41.9 Anxiety disorder, unspecified; F32.A Depression, unspecified; F17.200 Nicotine dependence, unspecified, uncomplicated; Y95 Nosocomial condition; D50.9 Iron deficiency anemia, unspecified; E87.6 Hypokalemia; R74.01 Elevation of levels of liver transaminase levels; E83.39 Other disorders of phosphorus metabolism; K59.00 Constipation, unspecified; Y73.1 Therapeutic (nonsurgical) and rehabilitative gastroenterology and urology devices associated with adverse incidents; Z87.442 Personal history of urinary calculi; Z90.710 Acquired absence of both cervix and uterus; Z11.52 Encounter for screening for COVID-19; Z79.51 Long term (current) use of inhaled steroids; Z22.322 Carrier or suspected carrier of Methicillin resistant Staphylococcus aureus
CPT/HCPCS: 0241U; 36415; 36430; 36573; 36592; 36600; 71045; 71250; 74018; 74176; 74181; 76705; 80048; 80051; 80053; 80074; 80177; 80202; 81001; 82274; 82330; 82550; 82728; 82805; 83540; 83605; 83690; 83735; 83880; 84100; 84145; 84484; 85014; 85018; 85025; 85049; 85610; 85651; 85730; 86140; 86403; 86850; 86870; 86900; 86902; 86920; 87040; 87070; 87075; 87086; 87106; 87205; 87449; 87486; 87493; 87581; 87633; 92610; 93005; 93306; 93970; 94640; 94669; 96365; 96372; 96376; 99285; C1751; J0744; J1450; J1644; J1650; J1940; J2185; J2270; J2470; J2543; J3370; J3372; J3475; J3480; J7030; J7040; J7050; J7608; J7613; P9016; P9046

== ENCOUNTER 2024-05-22 16:31 | Emergency (ER) | payer MEDICAID, SELFPAY ==
[2024-05-22] VITALS (7 sets, daily range): BP systolic 80–127; BP diastolic 53–73; PULSE 76–101; RESP 16; TEMP 36.7; O2SAT 91–96; BMI 19.5
--- NOTE | 2024-05-22 16:45 | CTR_ITS ---
PROCEDURE INFORMATION: Exam: CT Head Without Contrast Exam date and time: 05/22/2024 5:42 PM Age: 54 years old Clinical indication: Other: Blurred vision TECHNIQUE: Imaging protocol: Computed tomography of the head without contrast. Axial, coronal and sagittal reformatted images were created and reviewed. Radiation optimization: All CT scans at this facility use at least one of these dose optimization techniques: automated exposure control; mA and/or kV adjustment per patient size (includes targeted exams where dose is matched to clinical indication); or iterative reconstruction. COMPARISON: CT head wo con* [id number] 04/09/2024 7:10 AM RADIATION DOSE METRICS: Total DLP (mGy-cm): 1309.88 FINDINGS: Brain: Patchy areas of hypoattenuation in the periventricular and subcortical white matter, consistent with chronic small vessel ischemic disease. No CT evidence of acute intracranial hemorrhage or acute territorial infarction. No significant mass effect or midline shift. Basal cisterns patent. Cerebral ventricles: Prominence of the cortical sulci, cisterns and ventricular system, consistent with cerebral and cerebellar volume loss. Paranasal sinuses: Minimal ethmoid and left sphenoid sinus mucosal thickening. No fluid levels. Mastoid air cells: Grossly unremarkable. Bones: Unremarkable. No acute fracture. Soft tissues: Grossly unremarkable. CT/CT head wo con* [id number] IMPRESSION: 1. No CT evidence of acute intracranial pathology. 2. Additional findings, as above.
--- NOTE | 2024-05-22 16:46 | W.ED.EYEPROB ---
HPI - Eye Problem General: Chief complaint: Eye Problems Stated complaint: Blurred vision Time Seen by Provider: 05/22/24 16:32 Source: patient and EMS Mode of arrival: EMS Limitations: no limitations History of Present Illness: 54-year-old female who has a history of multiple sclerosis patient's bedbound states that over the last few days she has had some slightly blurred vision. Nursing staff states that she been sitting close to the TV than typical. She states she is supposed wear glasses but is been out of prescription lasted for 2 months she denies any headache denies slurred speech has no focal deficits Associated symptoms: Denies fever(s), headache(s), nausea, neck pain or vomiting Related Data Home Medications Medication Instructions Recorded Confirmed loratadine 10 mg tablet 10 mg PO DAILY@08 03/02/21 05/21/24 sodium phosphates 19 gram-7 118 ml [place] DAILY PRN Constipation 03/02/21 05/21/24 gram/118 mL enema (Fleet Enema) potassium chloride 20 mEq 20 meq PO BID@08,17 04/20/21 05/21/24 tablet,extended release guaifenesin 200 mg/5 mL oral liquid 500 mg PO Q4H PRN Cough 09/16/21 05/21/24 Lactobacillus acidophilus 1 1,000 mmu cells PO BID 01/19/22 05/21/24 billion cell capsule fluticasone 500 mcg-salmeterol 50 1 inh inhalation BID 01/19/22 05/21/24 mcg/dose blistr powdr for inhalation (Advair Diskus) gabapentin 300 mg capsule 300 mg PO TID 01/19/22 05/21/24 magnesium hydroxide 400 mg/5 mL 30 ml PO BID PRN Constipation 01/19/22 05/21/24 oral suspension polyethylene glycol 3350 17 4 g PO DAILY 01/19/22 05/21/24 gram/dose oral powder (Miralax) omeprazole 20 mg capsule,delayed 20 mg PO DAILY 05/12/22 05/21/24 release lacosamide 200 mg tablet (Vimpat) 200 mg PO BID 05/13/22 05/21/24 melatonin 5 mg tablet 5 mg PO BEDTIME 05/13/22 05/21/24 simethicone 80 mg chewable tablet 80 mg PO QID PRN Gastrointestinal 05/13/22 05/21/24 Spasms Or Cramping venlafaxine 150 mg 150 mg PO DAILY 05/13/22 05/21/24 capsule,extended release 24 hr (Effexor XR) baclofen 20 mg tablet 20 mg PO BID 11/08/23 05/21/24 baclofen 20 mg tablet 40 mg PO BEDTIME 11/08/23 05/21/24 levetiracetam 1,000 mg tablet 1,500 mg PO BID 11/08/23 05/21/24 (Keppra) albuterol sulfate 90 mcg/actuation 1 inh inhalation Q8H PRN Shortness 04/04/24 05/21/24 aerosol inhaler (Ventolin HFA) Of Breath ondansetron HCl 4 mg tablet 4 mg PO Q4H PRN Nausea And Vomiting 04/04/24 05/21/24 acetaminophen 325 mg tablet 650 mg PO Q6H Pain 04/09/24 05/21/24 levetiracetam 500 mg tablet 500 mg PO BID 04/09/24 05/21/24 methenamine hippurate 1 gram tablet 1 g PO QID 04/28/24 05/21/24 sodium phosphates 19 gram-7 118 ml OH DAILY PRN Constipation 04/28/24 05/21/24 gram/118 mL enema (Fleet Enema) apixaban 5 mg tablet (Eliquis) 5 mg PO BID 05/21/24 05/21/24 atorvastatin 40 mg tablet 40 mg PO DAILY 05/21/24 05/21/24 carvedilol 3.125 mg tablet (Coreg) 3.125 mg PO BID 05/21/24 05/21/24 clopidogrel 75 mg tablet (Plavix) 75 mg PO DAILY 05/21/24 05/21/24 empagliflozin 10 mg tablet 10 mg PO DAILY 05/21/24 05/21/24 (Jardiance) lisinopril 2.5 mg tablet 2.5 mg PO DAILY 05/21/24 05/21/24 spironolactone 25 mg tablet 12.5 mg PO DAILY 05/21/24 05/21/24 Previous Rx's Medication Instructions Recorded sennosides 8.6 mg-docusate sodium 2 tab PO BID #120 tabs 04/13/24 50 mg tablet (Stool Softener-Laxative) Allergies Allergy/AdvReac Type Severity Reaction Status Date / Time No Known Allergies Allergy Verified 05/21/24 14:54 Review of Systems Const: Denies: fever(s), chills, body aches or change in appetite Eyes: Reports: blurry vision; Denies: eye discomfort ENMT: Denies: throat pain or dental pain Card: Denies: chest pain Resp: Denies: dyspnea GI: Denies: abdominal pain, nausea, vomiting or diarrhea Musc: Denies: neck pain or back pain Skin/Breast: Denies: rash Neuro: Denies: headache(s) PFSH ED PFSH: Medical History Tobacco use Sacral decubitus ulcer Presence of urostomy [facility] resident Asthma Generalized epilepsy Gallstone pancreatitis Struvite kidney stones Onychodystrophy Depression, endogenous Staghorn renal calculus Multiple sclerosis Seizure Anxiety Depression Hypertension Cerebellar tremor Anemia GERD (gastroesophageal reflux disease) Plantar callus Surgical History Status post laparoscopic cholecystectomy (07/16/21) S/P ERCP H/O cervical biopsy History of biopsy of bladder H/O: hysterectomy History of urostomy Family History Family/Other Cancer Hyperlipidemia Hypertension Denies family history of Diabetes CAD (coronary artery disease) Clotting disorder Dementia Psychiatric illness Chronic kidney disease (CKD) Suicide Anesthesia complication Bleeding disorder Family history of premature coronary artery disease Lung disease Stroke Social History Smoking and tobacco/nicotine status: unknown if used tobacco/nicotine Alcohol intake: never Substance/Drug Use: never Marital status: Current occupational status: retired and disabled Physical Exam Const: COMMON NORMALS: no acute distress, patient oriented x3 and healthy appearing HENMT: COMMON NORMALS: normocephalic and atraumatic HEAD & SCALP: normocephalic and atraumatic Eye: COMMON NORMALS: Equal, round and reactive pupils present, EOMs intact bilaterally and conjunctivae normal VISUAL NYE: No peripheral vision loss ALIGNMENT: Yes alignment normal CONJUNCTIVA: Yes conjunctivae normal PUPIL: Yes Equal, round and reactive pupils present Neck/C-Spine: COMMON NORMALS: full ROM and supple Chest: COMMONS NORMALS: normal inspection of the chest and normal palpation of entire chest wall Resp: COMMON NORMALS: normal respiratory effort, No retractions, No use of accessory muscles and clear to auscultation bilaterally AUSCULTATION: clear to auscultation bilaterally Cardio: COMMON NORMALS: regular rate, regular rhythm and No murmurs present (Cardio) RATE: regular rate RHYTHM: regular rhythm Neuro: COMMON NORMALS: patient oriented x3, moves all extremities and no focal motor deficits Psych: COMMON NORMALS: mental status grossly normal, Normal thought process present and cooperative THOUGHT PROCESS: Normal thought process present Skin: COMMON NORMALS: no rashes or lesions noted and no wounds GENERAL SKIN EXAM: no rashes or lesions noted Course Vital Signs: Vital signs: Vital Signs Temperature 98.1 F 05/22/24 16:37 Pulse Rate 100 05/22/24 19:38 Respiratory Rate 16 05/22/24 16:37 Blood Pressure 127/73 05/22/24 19:38 Pulse Oximetry 94 05/22/24 19:38 Oxygen Delivery Me thod Room Air 05/22/24 19:38 MDM - Eye Problem Medical Decision Making Patient presents here with blurred vision her vision here shows no serious deficits she has no signs of stroke she has been well-appearing here head CT shows no acute abnormality she does have some slight dehydration her blood pressure did improve with IV fluids she has no signs of sepsis or infection she is stable for discharge back to [facility] Medical Records I reviewed the patient's medical records. Lab Data I reviewed the patient's lab results. 05/22/24 17:27 05/22/24 17:[address] 05/22/24 16:[address]: [address] evidence of acute intracranial pathology. 2. Additional findings, as above. Chest X-Ray 05/22/24 18:08 IMPRESSION: No acute radiographic findings. Laboratory Results WBC 12.19 10^3/uL (3.29-11.43) H 05/22/24 17:27 RBC 2.99 10^6/uL (3.85-5.65) L 05/22/24 17:27 Hgb 7.70 g/dL (11.27-16.99) L 05/22/24 17: Hct 25.3 % (36-47) L 05/22/24 17:27 MCV 84.6 fl (85-98) L 05/22/24 17: MCH 25.8 pg (27-33) L 05/22/24: MCHC 30.4 g/dL (30-55) 05/22/24 17: RDW 18.1 % (12.1-15.1) H 05/22/24 17: Plt Count 777 10^3/cmm (157-399) H 05/22/24 17: MPV 8.6 fL (7.4-10.4) 05/22/24 17: Neut % (Auto) 76.9 % 05/22/24 17: Lymph % (Auto) 11.8 % 05/22/24: Green % (Auto) 10.5 % 05/22/24: Eos % (Auto) 0.0 % 05/22/24: Baso % (Auto) 0.2 % 05/22/24: Neut # (Auto) 9.38 10^3/uL (1.8-7.7) H 05/22/24 17: Lymph # (Auto) 1.4 10^3/uL (0.8-4.8) 05/22/24 17: Green # (Auto) 1.3 10^3/uL (0.2-0.9) H 05/22/24: Eos # (Auto) 0.0 10^3/uL (0.0-0.8) 05/22/24: Baso # (Auto) 0.0 10^3/uL (0.0-0.1) 05/22/24: Nucleated RBC % (auto) 0 % 05/22/24: Nucleated RBCs # 0.0 /100WBC 05/22/24: PT 15.00 SECONDS (12.1-14.9) H 05/22/24: INR 1.10 (0.8-1.2) 05/22/24 17: Sodium 126 mmol/L (136-145) L 05/22/24 17: Potassium 3.7 mmol/L (3.5-5.1) 05/22/24: Chloride 100 mmol/L (98-107) 05/22/24 17:27 Carbon Dioxide 16 mmol/L (22-29) L 05/22/24 17:27 Anion Gap 13.7 (5-19) 05/22/24 17:27 BUN 11 mg/dL (6-20) 05/22/24 17:27 Creatinine 0.3 mg/dL (0.5-0.9) L 05/22/24 17:27 GFR Calculation 231.8 mL/min (90-130) H 05/22/24 17:27 Glucose 93 mg/dL (65-115) 05/22/24 17:27 Calculated Osmolality 261 mOsm/kg (285-295) L 05/22/24 17:27 Lactic Acid 1.5 mmol/L (0.5-2.2) 05/22/24 17:27 Calcium 8.3 mg/dL (8.5-10.5) L 05/22/24 17:27 Total Bilirubin 0.2 mg/dL (0.15-1.2) 05/22/24 17:27 AST 23 U/L (0-32) 05/22/24 17:27 ALT 16 U/L (0-33) 05/22/24 17:27 Alkaline Phosphatase 172 U/L (35-105) H 05/22/24 17:27 Total Protein 7.7 g/dL (6.6-8.7) 05/22/24 17:27 Albumin 2.4 g/dL (3.5-5.2) L 05/22/24 17:27 Globulin 5.3 g/dL (1.3-4.6) H 05/22/24 17:27 All radiology interpretation(s) finalized by discharge Discharge Plan Discharge Patient Disposition: Home Clinical Impression: Blurred vision, Dehydration Condition: Stable Prescriptions: No Action potassium chloride 20 mEq tablet extended release 20 meq PO BID@, polyethylene glycol 3350 [Miralax] 17 gram/dose powder 4 g PO DAILY fluticasone propion-salmeterol [Advair Diskus] 500-50 mcg/dose blister with device 1 inh inhalation BID Lactobacillus acidophilus 1 billion cell capsule 1,000 mmu cells PO BID gabapentin 300 mg capsule 300 mg PO TID magnesium hydroxide 400 mg/5 mL suspension 30 ml PO BID PRN (Reason: Constipation) levetiracetam [Keppra] 1,000 mg tablet 1,500 mg PO BID Rx Instructions: along with 500mg tablet to = 1500mg guaifenesin 200 mg/5 mL liquid 500 mg PO Q4H PRN (Reason: Cough) baclofen 20 mg tablet 40 mg PO BEDTIME lidocaine HCl [Lidocaine Viscous] 2 % solution 1 applic topical ONCE Qty: 1 0RF atorvastatin 40 mg tablet 40 mg PO DAILY clopidogrel [Plavix] 75 mg tablet 75 mg PO DAILY spironolactone 25 mg tablet 12.5 mg PO DAILY carvedilol [Coreg] 3.125 mg tablet 3.125 mg PO BID Rx Instructions: must administer with a meal/food lisinopril 2.5 mg tablet 2.5 mg PO DAILY Eliquis 5 mg tablet 5 mg PO BID Jardiance 10 mg tablet 10 mg PO DAILY loratadine 10 mg tablet 10 mg PO DAILY@08 Fleet Enema 19-7 gram/118 mL Enema 118 ml [place] DAILY PRN (Reason: Constipation) albuterol sulfate [Ventolin HFA] 90 mcg/actuation HFA aerosol inhaler 1 inh INHALATION Q8H PRN (Reason: Shortness Of Breath) ondansetron HCl 4 mg tablet 4 mg PO Q4H PRN (Reason: Nausea And Vomiting) omeprazole 20 mg capsule,delayed release(DR/EC) 20 mg PO DAILY venlafaxine [Effexor XR] 150 mg Capsule,Extended Release 24hr 150 mg PO DAILY lacosamide [Vimpat] 200 mg Tablet 200 mg PO BID simethicone 80 mg Tablet,Chewable 80 mg PO QID PRN (Reason: Gastrointestinal Spasms Or Cramping) melatonin 5 mg Tablet 5 mg PO BEDTIME baclofen 20 mg tablet 20 mg PO BID Rx Instructions: AM and NOON acetaminophen 325 mg Tablet 650 mg PO Q6H levetiracetam 500 mg tablet 500 mg PO BID Rx Instructions: along with 1000mg tablet to = 1500mg sennosides-docusate sodium [Stool Softener-Laxative] 8.6-50 mg Tablet 2 tab PO BID Qty: 120 0RF methenamine hippurate 1 gram tablet 1 g PO QID Fleet Enema 19-7 gram/118 mL Enema 118 ml OH DAILY PRN (Reason: Constipation) Discharge Orders: Discharge ED (Routine); Ordered 01/14/25 Ordered By: Bal Marie Referrals: Tony Keys MD [Primary Care Provider] - 4-7 days Discharge Diet: Advance as tolerated Discharge Activity: Resume usual activity Patient Instructions: Blurred Vision (ED) Coding Level of Care Code ED Validation Manager for Louise Roca
--- NOTE | 2024-05-22 17:45 | PC.NURSE ---
Pt visual acuity left eye 20/50, right eye 20/50, both eyes 20/50. MD notified.
[2024-05-22 17:56] LABS: Basophils % 0.2 %; Hematocrit 25.3 % (36-47); Lymphocytes # 1.4 10^3/uL (0.8-4.8); Lymphocytes % 11.8 %; Mean Corpuscular HGB Conc 30.4 g/dL (30-55); Mean Corpuscular Hemoglobin 25.8 pg (27-33); Mean Corpuscular Volume 84.6 fl (85-98); Mean Platelet Volume 8.6 fL (7.4-10.4); Monocytes # 1.3 10^3/uL (0.2-0.9); Monocytes % 10.5 %; Neutrophils # 9.38 10^3/uL (1.8-7.7); Neutrophils % 76.9 %; Nucleated Red Blood Cells % 0 %; Platelet Count 777 10^3/cmm (157-399); Red Blood Count 2.99 10^6/uL (3.85-5.65); Red Cell Distribution Width 18.1 % (12.1-15.1); White Blood Count 12.19 10^3/uL (3.29-11.43)
--- NOTE | 2024-05-22 18:08 | XRR_ITS ---
PROCEDURE INFORMATION: Exam: XR Chest Exam date and time: 05/22/2024 6:15 PM Age: 54 years old Clinical indication: Other: HTN TECHNIQUE: Imaging protocol: Radiologic exam of the chest. Views: 1 view. COMPARISON: CT chest [facility] [id number] 05/02/2024 2:10 PM FINDINGS: Lungs: Streaky opacities at the left lung base, likely secondary to atelectasis and/or scarring. No consolidation. Pleural spaces: Unremarkable. No pleural effusion. No pneumothorax. Heart/Mediastinum: Unremarkable. No cardiomegaly. Bones/joints: No acute osseous abnormality. Mild degenerative changes. XR/XR chest 1V portable [id number] IMPRESSION: No acute radiographic findings.
[2024-05-22 18:12] LABS: Alanine Aminotransferase 16 U/L (0-33); Albumin Level 2.4 g/dL (3.5-5.2); Alkaline Phosphatase 172 U/L (35-105); Anion Gap 13.7 (5-19); Aspartate Amino Transferase 23 U/L (0-32); Blood Urea Nitrogen 11 mg/dL (6-20); Calcium 8.3 mg/dL (8.5-10.5); Carbon Dioxide 16 mmol/L (22-29); Chloride 100 mmol/L (98-107); Creatinine Clr Calc Pharmacy 208.9618; Globulin 5.3 g/dL (1.3-4.6); Glomerular Filtration Rate 231.8 mL/min (90-130); Glucose 93 mg/dL (65-115); Osmolality Calculated 261 mOsm/kg (285-295); Potassium 3.7 mmol/L (3.5-5.1); Sodium 126 mmol/L (136-145); Total Bilirubin 0.2 mg/dL (0.15-1.2); Total Protein 7.7 g/dL (6.6-8.7)
[2024-05-22] MEDS: sodium chloride 0.9% 1,000 ML 999 ML IV ×2 (18:25→18:42)
[2024-05-22 18:51] LABS: Lactic Sepsis W/Reflex 1.5 mmol/L (0.5-2.2)
== END 2024-05-22 20:00 | disposition home or self-care (01) ==
PROVIDERS: Emergency Provider Emergency Medicine; PCP Internal Medicine
DX: H53.8 Other visual disturbances (principal); E86.0 Dehydration; Z79.02 Long term (current) use of antithrombotics/antiplatelets; Z79.01 Long term (current) use of anticoagulants; I10 Essential (primary) hypertension
CPT/HCPCS: 36415; 70450; 71045; 80053; 83605; 85025; 85610; 99284; J7030

== ENCOUNTER → 2024-06-11 13:28 | Outpatient (BNVA) | payer MEDICAID, SELFPAY | PROVIDERS: PCP Internal Medicine | DX: L89.154 Pressure ulcer of sacral region, stage 4 (principal) | CPT/HCPCS: 87070; 87077; 87176; 87186; 87205 ==

== ENCOUNTER 2024-06-12 14:47 | Outpatient (CLI) | payer MEDICAID, SELFPAY ==
--- NOTE | 2024-06-12 14:56 | XRR_ITS ---
PROCEDURE INFORMATION: Exam: XR Pelvis Exam date and time: 06/12/2024 3:01 PM Age: 54 years old Clinical indication: Pelvic pain; Prior surgery; Surgery date: 6+ months; Surgery type: Gb, hysterectomy, ileostomy, urostomy; Bone exposure; Rule out osteomyelitis, with attn to sacrum. PT extremely contracted and unable to move, transfer via barbie lift; Additional info: Bone exposure; Rule out osteomyelitis, attn to sacrum TECHNIQUE: Imaging protocol: Radiologic exam of the pelvis. Views: 1 or 2 view. COMPARISON: CT abdomen pelvis wo con [id number] 04/28/2024 6:27 AM FINDINGS: Bones/joints: There is severe diffuse osteopenia. No acute fracture is detected. There is mild narrowing of the hip joints bilaterally with mild subchondral sclerosis and small marginal spurs. There appears to be mild decreased height of the L4 vertebral body, suboptimally evaluated on these radiographs. Soft tissues: Unremarkable. Gastrointestinal tract: There is a moderate amount of fecal material and air throughout the colon.There is no significant bowel dilatation or evidence for obstruction. XR/XR pelvis min 3V [id number] IMPRESSION: 1. Severe diffuse osteopenia. 2. Mild decreased height of the L4 vertebral body, suboptimally evaluated on these pelvis radiographs. If there is clinical concern for spinal fracture, dedicated spinal radiographs may be helpful. 3. Mild osteoarthritis involving the hips bilaterally. 4. No acute hip fracture detected. 5. Moderate amount of fecal material and air throughout the colon. No significant bowel dilatation or evidence for obstruction.
== END 2024-06-12 14:48 | disposition home or self-care (01) ==
PROVIDERS: PCP Internal Medicine
DX: L89.154 Pressure ulcer of sacral region, stage 4 (principal); Z98.890 Other specified postprocedural states; M85.80 Other specified disorders of bone density and structure, unspecified site; R93.7 Abnormal findings on diagnostic imaging of other parts of musculoskeletal system; M16.0 Bilateral primary osteoarthritis of hip; K59.00 Constipation, unspecified; R93.89 Abnormal findings on diagnostic imaging of other specified body structures
CPT/HCPCS: 72190; 99214

== ENCOUNTER → 2024-07-02 14:06 | Outpatient (BNVA) | payer MEDICAID, SELFPAY | PROVIDERS: PCP Internal Medicine; Visit Provider Thoracic Surgery (Cardiothoracic Vascular Surgery) | DX: I96 Gangrene, not elsewhere classified (principal); L89.154 Pressure ulcer of sacral region, stage 4 | CPT/HCPCS: 11043; 11046; 99213 ==

== ENCOUNTER 2024-08-13 11:29 | Inpatient (IN) | payer MEDICAID, SELFPAY ==
[2024-08-13] VITALS (54 sets, daily range): BP systolic 76–152; BP diastolic 51–91; PULSE 66–137; RESP 9–21; TEMP 36.3–37.1; O2SAT 93–100
--- NOTE | 2024-08-13 11:52 | XR_ITS ---
WS: [id number] Exam: XR chest 1V portable [id number] Date/Time of Exam: 08/13/2024 11:55 AM Reason For Exam: Possible Sepsis Comparison 05/22/2024. The lungs are fully inflated and clear. Normal cardiomediastinal silhouette. No pleural effusion. Bony structures are intact. Dextroscoliosis of the thoracic spine. XR/XR chest 1V portable [id number] IMPRESSION: 1. Negative chest.
--- NOTE | 2024-08-13 12:00 | ECG_ITS ---
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 Measurements Intervals Jackson Rate: 139 P: 81 AL: 145 QRS: -89 QRSD: 101 T: 81 QT: 285 QTc: 434 Interpretive Statements SINUS TACHYCARDIA LEFT ANTERIOR FASCICULAR BLOCK [QRS AXIS <= -45, QR IN I, RS IN II] ANTEROLATERAL MYOCARDIAL INFARCTION AGE INDETERMINATE Compared to ECG 05/01/2024 19:05:59 No significant changes Electronically Signed On 08-13-2024 22:28:27 CDT by Simone Paul M.D. [id number]
--- NOTE | 2024-08-13 12:16 | PC.NURSE ---
UNABLE TO OBTAIN OXYGEN SATURATION AFTER 30 MINUTES OF TRYING. RESPIRATORY AT BEDSIDE FOR ABG. DR. DECKER NOTIFIED.
--- NOTE | 2024-08-13 12:17 | W.ED.AMS ---
HPI - Altered Mental Status General: Chief Complaint: Altered Mental Status Stated Complaint: declining health - hypotensive Source: EMS Mode of arrival: EMS Limitations: altered mental status History of Present Illness: 54-year-old female is here from longterm she has multiple medical issues including severe MS where she is bedbound. Per longterm she has had increase altered mental status and weakness has been going on for 2 to 3 days today she is completely altered only responsive to painful stimuli she has been tachycardic and hypotensive there. She has a known large stage IV decubitus ulcer. No known fevers. They states that she has had some blood in her Hernandez over the last 2 days. Related Data Home Medications ?Medication ?Instructions ?Recorded ?Confirmed loratadine 10 mg tablet 10 mg PO DAILY@08 03/02/21 08/13/24 potassium chloride 20 mEq 20 meq PO BID@,17 04/20/21 08/13/24 tablet,extended release gabapentin 300 mg capsule 300 mg PO TID 01/19/22 08/13/24 omeprazole 20 mg capsule,delayed 20 mg PO DAILY 05/12/22 08/13/24 release lacosamide 200 mg tablet (Vimpat) 200 mg PO BID 05/13/22 08/13/24 venlafaxine 150 mg 150 mg PO DAILY 05/13/22 08/13/24 capsule,extended release 24 hr (Effexor XR) levetiracetam 1,000 mg tablet 1,500 mg PO BID 11/08/23 08/13/24 (Keppra) ondansetron HCl 4 mg tablet 4 mg PO Q4H PRN Nausea And Vomiting 04/04/24 08/13/24 acetaminophen 325 mg tablet 650 mg PO Q6H Pain 04/09/24 08/13/24 methenamine hippurate 1 gram tablet 1 g PO QID 04/28/24 08/13/24 apixaban 5 mg tablet (Eliquis) 5 mg PO BID 05/21/24 08/13/24 atorvastatin 40 mg tablet 40 mg PO DAILY 05/21/24 08/13/24 carvedilol 3.125 mg tablet (Coreg) 3.125 mg PO BID 05/21/24 08/13/24 clopidogrel 75 mg tablet (Plavix) 75 mg PO DAILY 05/21/24 08/13/24 empagliflozin 10 mg tablet 10 mg PO DAILY 05/21/24 08/13/24 (Jardiance) baclofen 20 mg tablet 20 mg PO BID 06/05/24 08/13/24 ferrous sulfate 324 mg (65 mg 324 mg PO DAILY 06/05/24 08/13/24 iron) tablet,delayed release interferon beta-1b 0.3 mg 0.3 ml SUBCUT DAILY 06/05/24 08/13/24 subcutaneous kit levalbuterol HCl 1.25 mg/3 mL 1.25 mg inhalation Q4H 06/12/24 08/13/24 solution for nebulization midodrine 5 mg tablet 5 mg PO TID 06/12/24 08/13/24 salmeterol 50 mcg/dose blister 1 inh inhalation Q12H 06/12/24 08/13/24 powder for inhalation (Serevent Diskus) tramadol 50 mg tablet 50 mg PO QID 06/12/24 08/13/24 arginine-vitamin C-vitamin E oral 4.5 g PO DAILY 08/13/24 08/13/24 4.5 gram-156 mg/9.2 gram powder pkt (Arginaid) budesonide-formoterol HFA 160 2 puff inhalation BID 08/13/24 08/13/24 mcg-4.5 mcg/actuation aerosol inhaler (Symbicort) hydrocodone 10 mg-acetaminophen 1 tab PO Q6H 08/13/24 08/13/24 325 mg tablet Allergies Allergy/AdvReac Type Severity Reaction Status Date / Time linezolid AdvReac Severe ADR-Seizure Verified 08/06/24 15:04 Review of Systems General: Reports: ROS unobtainable due to mental status PFSH ED PFSH: Medical History Tobacco use Sacral decubitus ulcer Presence of urostomy [facility] resident Asthma Generalized epilepsy Gallstone pancreatitis Struvite kidney stones Onychodystrophy Depression, endogenous Staghorn renal calculus Multiple sclerosis Seizure Anxiety Depression Hypertension Cerebellar tremor Anemia GERD (gastroesophageal reflux disease) Plantar callus Surgical History Status post laparoscopic cholecystectomy (07/16/21) S/P ERCP H/O cervical biopsy History of biopsy of bladder H/O: hysterectomy History of urostomy Family History Family/Other Cancer Hyperlipidemia Hypertension Denies family history of Diabetes CAD (coronary artery disease) Clotting disorder Dementia Psychiatric illness Chronic kidney disease (CKD) Suicide Anesthesia complication Bleeding disorder Family history of premature coronary artery disease Lung disease Stroke Social History Smoking and tobacco/nicotine status: former use of tobacco/nicotine Alcohol intake: never Substance/Drug Use: never Housing: Jail Marital status: Current occupational status: retired and disabled Physical Exam Const: COMMON NORMALS: negative for patient oriented x3 GENERAL APPEARANCE: ill appearing and frail appearing HENMT: COMMON NORMALS: normocephalic and atraumatic HEAD & SCALP: normocephalic and atraumatic Eye: COMMON NORMALS: conjunctivae normal CONJUNCTIVA: Yes conjunctivae normal Neck/C-Spine: COMMON NORMALS: full ROM and supple Chest: COMMONS NORMALS: normal inspection of the chest and normal palpation of entire chest wall Resp: COMMON NORMALS: normal respiratory effort, No retractions, No use of accessory muscles and clear to auscultation bilaterally AUSCULTATION: clear to auscultation bilaterally Cardio: COMMON NORMALS: regular rate, regular rhythm and No murmurs present (Cardio) RATE: regular rate RHYTHM: regular rhythm GI: COMMON NORMALS: Normal to inspection, nondistended, normoactive bowel sounds present, Soft to palpation, non-tender and no masses PALPATION: Yes Soft to palpation OTHER: black stool noted on exam hemoccult positive Extremity: COMMON NORMALS: normal to inspection Neuro: COMMON NORMALS: moves all extremities and no focal motor deficits; negative for patient oriented x3 Psych: COMMON NORMALS: negative for mental status grossly normal and negative for Normal thought process present THOUGHT PROCESS: abnormal Skin: COMMON NORMALS: no rashes or lesions noted NARRATIVE SKIN EXAM: Large stage IV decubitus ulcer noted GENERAL SKIN EXAM: no rashes or lesions noted Procedures Central Line Placement Right IJ: Time Out Performed: Yes Patient Placed on Monitor/Pulse Ox: Yes MD Prep: mask, gown and gloves Central Line Prep: Povidone-Iodine 1% Local Anesthetic: lidocaine 1% Amount of anesthesia used (mL): 5 Ultrasound Used for Placement: Yes Central Line Lumen Inserted: triple Post Procedure: sutured in place, good blood return, all ports aspirated, flushed, capped and sterile dressing applied Post Procedure X-Ray: tip of catheter in good position and no pneumothorax seen Patient Tolerated Procedure: well and no complications Complications: none Course Vital Signs: Vital signs: Vital Signs Temperature 98.8 F 08/13/24 11:31 Pulse Rate 117 H 08/13/24 14:45 Respiratory Rate 15 08/13/24 11:31 Blood Pressure 106/74 08/13/24 14:45 Pulse Oximetry 100 08/13/24 14:45 Oxygen Delivery Me thod Nasal Cannula 08/13/24 14:45 Oxygen Flow Rate 3 08/13/24 12:45 MDM - Altered Mental Status Medical Decision Making Patient presents here altered mental status she is also found to have septic shock did give her fluid bolus started on Levophed central line and placed on antibiotics. She did have black stools with Hemoccult positive mild edema did give her 1 unit of blood. She does have a large decubitus ulcer that appears to be stable. I spoke to the hospitalist will admit the ICU Medical Records I reviewed the patient's medical records. Lab Data I reviewed the patient's lab results. 08/13/24 12:12 08/13/24 12:12 Radiology Impressions Abdomen/Pelvis CT 08/13/24 12:50 IMPRESSION: 1. Constipation with rectosigmoid impaction with rectal distention 2. Bilateral renal calculi and pelvic calculi similar to previous. No obstructing ureteral calculi. 3. Stable airspace opacities LEFT lower lobe. 4. Compression fracture superior endplate L4 new since 04/28/2024. Mild compression superior endplate T12 is also new since 04/28/2024. 5. Decubitus ulcer at ulceration with partial resection of the distal sacrum and coccyx. Chest X-Ray 08/13/24 14:41 IMPRESSION: 1. Right-sided IJ catheter ends in the lower one third of the SVC. The chest is otherwise unremarkable. Laboratory Results WBC 31.60 10^3/uL (3.29-11.43) H* 08/13/24 12:12 RBC 3.52 10^6/uL (3.85-5.65) L 08/13/24 12:12 Hgb 9.40 g/dL (11.27-16.99) L 08/13/24 12:12 Hct 33.5 % (36-47) L 08/13/24 12:12 MCV 95.2 fl (85-98) 08/13/24 12:12 MCH 26.7 pg (27-33) L 08/13/24 12:12 MCHC 28.1 g/dL (30-55) L 08/13/24 12:12 RDW 18.6 % (12.1-15.1) H 08/13/24 12:12 Plt Count 719 10^3/cmm (157-399) H 08/13/24 12:12 MPV 9.5 fL (7.4-10.4) 08/13/24 12:12 Neut % (Auto) 87.9 % 08/13/24 12:12 Lymph % (Auto) 5.4 % 08/13/24 12:12 [place] % (Auto) 4.3 % 08/13/24 12:12 Eos % (Auto) 0.3 % 08/13/24 12:12 Baso % (Auto) 0.2 % 08/13/24 12:12 Neut # (Auto) 27.78 10^3/uL (1.8-7.7) H 08/13/24 12:12 Lymph # (Auto) 1.7 10^3/uL (0.8-4.8) 08/13/24 12:12 [place] # (Auto) 1.4 10^3/uL (0.2-0.9) H 08/13/24 12:12 Eos # (Auto) 0.1 10^3/uL (0.0-0.8) 08/13/24 12:12 Baso # (Auto) 0.1 10^3/uL (0.0-0.1) 08/13/24 12:12 Nucleated RBC % (auto) 0.3 % 08/13/24 12:12 Nucleated RBCs # 0.1 /100WBC 08/13/24 12:12 PT 20.10 SECONDS (12.1-14.9) H 08/13/24 12:12 INR 1.60 (0.8-1.2) H 08/13/24 12:12 Specimen Type Arterial 08/13/24 13:00 Sample Site Brachial, left 08/13/24 13:00 ABG pH 7.31 (7.35-7.45) L 08/13/24 13:00 ABG pCO2 23.5 mmHg (35-45) L 08/13/24 13:00 ABG pO2 124.0 mmHg (80.0-100.0) H 08/13/24 13:00 ABG PO2/FiO2 Ratio 387 08/13/24 13:00 ABG HCO3 11.7 mmol/L (22-26) L 08/13/24 13:00 ABG O2 Saturation 98.9 08/13/24 13:00 ABG Base Excess -13.2 mmol/L (-2.0-2.0) L 08/13/24 13:00 Andrews Test N/a 08/13/24 13:00 A-a O2 Gradient 9.3 mmHg (5-10) 08/13/24 13:00 Hematocrit 25.3 % (37-47) L 08/13/24 13:00 Hgb O2 Saturation 97.0 % (95-100) 08/13/24 13:00 Carboxyhemoglobin 0.8 %THgb (0.4-20.1) 08/13/24 13:00 Methemoglobin 1.2 % (0.4-1.5) 08/13/24 13:00 Total Hemoglobin 8.3 g/dL (12-16) L 08/13/24 13:00 Sodium 147.0 mmol/L (131-143) H 08/13/24 13:00 Potassium 4.1 mmol/L (3.5-5.0) 08/13/24 13:00 Glucose 84.0 mg/dL (70-115) 08/13/24 13:00 Ionized Calcium 1.2 mmol/L (1.1-1.4) 08/13/24 13:00 O2 Delivery Device Nc 08/13/24 13:00 O2 Liters/Min 3.0 % 08/13/24 13:00 FiO2 32.0 % 08/13/24 13:00 Atg Java Developer ID [id number] 08/13/24 13:00 Sodium 141 mmol/L (136-145) 08/13/24 12:12 Potassium 5.4 mmol/L (3.5-5.1) H 08/13/24 12:12 Chloride 116 mmol/L (98-107) H 08/13/24 12:12 Carbon Dioxide 14 mmol/L (22-29) L 08/13/24 12:12 Anion Gap 16.4 (5-19) 08/13/24 12:12 BUN 51 mg/dL (6-20) H 08/13/24 12:12 Creatinine 1.4 mg/dL (0.5-0.9) H 08/13/24 12:12 GFR Calculation 39.2 mL/min (90-130) L 08/13/24 12:12 Glucose 105 mg/dL (65-115) 08/13/24 12:12 Calculated Osmolality 306 mOsm/kg (285-295) H 08/13/24 12:12 Lactic Acid 4.2 mmol/L (0.5-2.2) H* 08/13/24 12:12 Calcium 8.7 mg/dL (8.5-10.5) 08/13/24 12:12 Magnesium 2.1 mg/dL (1.7-2.3) 08/13/24 12:12 Total Bilirubin 0.2 mg/dL (0.15-1.2) 08/13/24 12:12 AST 26 U/L (0-32) 08/13/24 12:12 ALT 14 U/L (0-33) 08/13/24 12:12 Alkaline Phosphatase 203 U/L (35-105) H 08/13/24 12:12 Total Protein 7.4 g/dL (6.6-8.7) 08/13/24 12:12 Albumin 2.4 g/dL (3.5-5.2) L 08/13/24 12:12 Globulin 5.0 g/dL (1.3-4.6) H 08/13/24 12:12 Amorphous Sediment Not Reportable 08/13/24 14:51 Blood Type A Positive 08/13/24 13:22 Rho(D) Type Rh positive 08/13/24 13:22 Antibody Screen Positive 08/13/24 13:22 Crossmatch See Detail 08/13/24 13:22 All radiology interpretation(s) finalized by discharge EKG Data EKG 1: I personally reviewed and interpreted this EKG as follows: EKG interpretation date: 04/07/25 EKG interpretation time: 11:45 Interpretation: sinus tach hr [address] elevation qrs 101 qtc 366 Critical Care Time Critical Care Time: Critical Care Time: Yes Total Critical Care Time: 50 Attestation: The high probability of a clinically significant, sudden or life threatening deterioration of the patient's gi system(s) required my full and direct attention, intervention and personal management. The critical care time is as shown. This time is in addition to time spent performing any reported procedures but includes the following: [x] Data and vital sign review and interpretation [x] Patient assessment, examination and intervention [x] Documentation [x] Medication orders and management Discharge Plan Discharge Patient Disposition: Admitted As Inpatient Clinical Impression: Paraplegia, Multiple sclerosis, Pressure ulcer of sacral region, stage 4, Septic shock Condition: Stable Prescriptions: No Action potassium chloride 20 mEq tablet extended release 20 meq PO BID@08,17 gabapentin 300 mg capsule 300 mg PO TID levetiracetam [Keppra] 1,000 mg tablet 1,500 mg PO BID baclofen 20 mg tablet 20 mg PO BID atorvastatin 40 mg tablet 40 mg PO DAILY clopidogrel [Plavix] 75 mg tablet 75 mg PO DAILY carvedilol [Coreg] 3.125 mg tablet 3.125 mg PO BID Rx Instructions: must administer with a meal/food Eliquis 5 mg tablet 5 mg PO BID Jardiance 10 mg tablet 10 mg PO DAILY ferrous sulfate 324 mg (65 mg iron) tablet,delayed release (DR/EC) 324 mg PO DAILY interferon beta-1b 0.3 mg kit 0.3 ml SUBCUT DAILY midodrine 5 mg tablet 5 mg PO TID Rx Instructions: do not give last dose of day after 6PM or within 4 hrs of bedtime Serevent Diskus 50 mcg/dose blister with device 1 inh inhalation Q12H tramadol 50 mg tablet 50 mg PO QID levalbuterol HCl 1.25 mg/3 mL solution for nebulization 1.25 mg inhalation Q4H loratadine 10 mg tablet 10 mg PO DAILY@08 ondansetron HCl 4 mg tablet 4 mg PO Q4H PRN (Reason: Nausea And Vomiting) hydrocodone-acetaminophen 10-325 mg tablet 1 tab PO Q6H budesonide-formoterol [Symbicort] 160-4.5 mcg/actuation Hfa Aerosol Inhaler 2 puff INHALATION BID Arginaid 4.5 gram-156 mg/9.2 gram Powder In Packet 4.5 g PO DAILY omeprazole 20 mg capsule,delayed release(DR/EC) 20 mg PO DAILY venlafaxine [Effexor XR] 150 mg Capsule,Extended Release 24hr 150 mg PO DAILY lacosamide [Vimpat] 200 mg Tablet 200 mg PO BID acetaminophen 325 mg Tablet 650 mg PO Q6H methenamine hippurate 1 gram tablet 1 g PO QID Referrals: Tony Keys MD [Primary Care Provider] - Patient Instructions: Altered Mental Status (ED) Print Language: Luxembourger Coding Level of Care Code ED Mail Carrier for Louise Roca
[2024-08-13] MEDS: pantoprazole 40 mg SDV 80 MG IVP (12:29)
[2024-08-13 12:39] LABS: Alanine Aminotransferase 14 U/L (0-33); Albumin Level 2.4 g/dL (3.5-5.2); Alkaline Phosphatase 203 U/L (35-105); Anion Gap 16.4 (5-19); Aspartate Amino Transferase 26 U/L (0-32); Blood Urea Nitrogen 51 mg/dL (6-20); Calcium 8.7 mg/dL (8.5-10.5); Carbon Dioxide 14 mmol/L (22-29); Chloride 116 mmol/L (98-107); Glomerular Filtration Rate 39.2 mL/min (90-130); Glucose 105 mg/dL (65-115); Magnesium 2.1 mg/dL (1.7-2.3); Osmolality Calculated 306 mOsm/kg (285-295); Potassium 5.4 mmol/L (3.5-5.1); Sodium 141 mmol/L (136-145); Total Bilirubin 0.2 mg/dL (0.15-1.2); Total Protein 7.4 g/dL (6.6-8.7)
[2024-08-13 12:44] LABS: Basophils # 0.1 10^3/uL (0.0-0.1); Basophils % 0.2 %; Eosinophils # 0.1 10^3/uL (0.0-0.8); Eosinophils % 0.3 %; Hematocrit 33.5 % (36-47); Lymphocytes # 1.7 10^3/uL (0.8-4.8); Lymphocytes % 5.4 %; Mean Corpuscular HGB Conc 28.1 g/dL (30-55); Mean Corpuscular Hemoglobin 26.7 pg (27-33); Mean Corpuscular Volume 95.2 fl (85-98); Mean Platelet Volume 9.5 fL (7.4-10.4); Monocytes # 1.4 10^3/uL (0.2-0.9); Monocytes % 4.3 %; Neutrophils # 27.78 10^3/uL (1.8-7.7); Neutrophils % 87.9 %; Nucleated Red Blood Cells # 0.1 /100WBC; Nucleated Red Blood Cells % 0.3 %; Platelet Count 719 10^3/cmm (157-399); Red Blood Count 3.52 10^6/uL (3.85-5.65); Red Cell Distribution Width 18.6 % (12.1-15.1)
[2024-08-13 12:45] LABS: Lactic Sepsis W/Reflex 4.2 mmol/L (0.5-2.2)
--- NOTE | 2024-08-13 12:50 | CT_ITS ---
WS: [id number] CT ABDOMEN PELVIS TECHNIQUE: Noncontrast CT of the abdomen and pelvis with coronal and sagittal reformatted images. CLINICAL INFORMATION: gi bleed COMPARISON: CT 04/28/2024 DLP: 291.[address] scans at [facility] use at least one of these dose optimization techniques: automated exposure control; mA and/or kV adjustment per patient size (includes targeted exams where dose is matched to clinical indication); or iterative reconstruction. FINDINGS: Patchy airspace infiltrates LEFT lower lobe with bronchiectasis similar to previous bilateral parenchymal and RIGHT renal pelvis calculi is similar to previous. Mild dilatation RIGHT renal pelvis is similar in appearance. No visualized obstructing ureteral calculi. Markedly dilated sigmoid and rectum w ith fecal impaction. Prior hysterectomy. Prior cholecystectomy. Ileostomy with urostomy. Compression superior endplate L4 new since 04/28/2024. Mild compression superior endplate T12 is also new. Decubitus ulcer at ulceration with partial resection of the distal sacrum and coccyx. CT/CT kidney stone [id number] IMPRESSION: 1. Constipation with rectosigmoid impaction with rectal distention 2. Bilateral renal calculi and pelvic calculi similar to previous. No obstruct ing ureteral calculi. 3. Stable airspace opacities LEFT lower lobe. 4. Compression fracture superior endplate L4 new since 04/28/2024. Mild compre ssion superior endplate T12 is also new since 04/28/2024. 5. Decubitus ulcer at ulceration with partial resection of the distal sacrum a nd coccyx.
--- NOTE | 2024-08-13 12:59 | PC.NURSE ---
pt's ns order placed on pressure bag thru IV.
--- NOTE | 2024-08-13 13:08 | PC.NURSE ---
Mili rn relief charge nurse has attempted IV, this nurse has attempted 2 IVs, this nurse has estb. 1 IV estb, fluids bolus in and on pressure bag. currently with alysa SCHULER attempting second US IV.
[2024-08-13 13:15] LABS: ABG PCO2 23.5 mmHg (35-45); ABG PH Result 7.31 (7.35-7.45); Alveolar-Arterial Oxygen Gradi 9.3 mmHg (5-10); Arterial Blood Gas Hematocrit 25.3 % (37-47); Base Excess ABG -13.2 mmol/L (-2.0-2.0); Blood Gas Operator Identificat GD; Blood Gas Sample Site Brachial, left; Blood Gas Sample Type Arterial; Carboxyhemoglobin 0.8 %THgb (0.4-20.1); HCO3 ABG 11.7 mmol/L (22-26); Ionized Calcium Level - ABG 1.2 mmol/L (1.1-1.4); Methemoglobin 1.2 % (0.4-1.5); Oxygen Device NC; Oxygen Saturation ABG 98.9; PO2 FiO2 Ratio Arterial Blood 387; Potassium Level - ABG 4.1 mmol/L (3.5-5.0); Total Hemoglobin 8.3 g/dL (12-16)
--- NOTE | 2024-08-13 13:16 | PC.RESP ---
Patient attempted x4 with 2 therapists, finally successful with use of ultrasound machine.
[2024-08-13] MEDS: VANCOMYCIN ADD-Vantage 1,000 MG in 0.9% NaCl ADD-Vantage 250 ML 250 MG IV (13:23)
[2024-08-13] MEDS: piperacillin-tazobactam 3.375 GM in sodium chloride 0.9% (plus) 50 ML IV ×2 (13:23→18:06)
[2024-08-13 14:07] LABS: Reflex Lactate Order REFLEX LACTIC ORDERD
--- NOTE | 2024-08-13 14:41 | XR_ITS ---
WS: [id number] Exam: XR chest 1V portable [id number] Date/Time of Exam: 08/13/2024 2:45 PM Reason For Exam: central line Comparison 08/13/2024 at 2:12 p.m. A right-sided IJ catheter has been placed and ends in the lower one third of the SVC in good position. The remainder the chest is unremarkable and unchanged since the last study. XR/XR chest 1V portable [id number] IMPRESSION: 1. Right-sided IJ catheter ends in the lower one third of the SVC. The chest is otherwise unremarkable.
[2024-08-13] MEDS: sodium chloride 0.9% 500 ML 999 ML IV (14:57)
[2024-08-13] MEDS: norepinephrine 4 MG/250 ML BAG 7.5 MG IV (14:57)
[2024-08-13 15:00] LABS: RBC Urine >100 /hpf (0-2); Squamous Epithelial Cell Urine 0-5 /hpf (0-5)
[2024-08-13 15:15] LABS: Add Urine Microscopic? YES; Bilirubin Urine 1+ (Negative); Blood Urine 3+ (Negative); Glucose Urine UA Norm (Normal); Ketones Urine Negative (Negative); Leukocyte Esterase Urine 2+ (Negative); Nitrate Urine Negative (Negative); Protein Urine 3+ (Negative); Urine Appearance Slightly Cloudy (CLEAR); Urine Color Dark Yellow (Yellow); Urobilinogen Urine Norm (Negative); pH Urine 9 (5-7)
[2024-08-13 15:16] LABS: UA Slide Review UA Slide Review Perf
[2024-08-13 15:17] LABS: Add Urine Culture? Yes; Bacteria Urine 1+ /hpf; WBC Urine 40-55 /hpf (0-5)
[2024-08-13 15:38] LABS: Lactic Acid level (Lactate) 1.2 mmol/L (0.5-2.2)
--- NOTE | 2024-08-13 17:55 | PC.NURSE ---
Blood transfusion not given, Dr. Guillen wants to recheck HgB before transfusing.
[2024-08-13] MEDS: sodium chloride 0.9% 500 ML IV (18:01)
--- NOTE | 2024-08-13 18:19 | PM.HP ---
Providers/Chief Complaint Admitting Physician: Smith Jaramillo Primary Care Provider: Tony Keys MD Chief Complaint: declining health - hypotensive History of Present Illness 54-year-old lady with multiple sclerosis, bedbound with pressure ulcers including large ulcer sacrum, urostomy, seizure disorder, GERD, anemia, asthma, HTN, other medical problems, was brought to the hospital due to altered mental status, generalized weakness, going on for 2-3 days, in ER found to only have response to painful stimuli. With tachycardia, hypotension, finding of sepsis, with finding of dark stools, as well as report of blood in the urine over the last 2 days from the [facility]. Urinary studies with more than 100 RBC, 40-55 WBC. Additionally with finding of RAFA, creatinine 1.4, potassium 5.4. Lactic acid 4.2. CT abdomen and pelvis without urinary obstruction. With finding of bilateral renal calculi. Constipation. Stable airspace opacities left lower lobe. Review of Systems General: Reports: ROS unobtainable due to mental status Medications/Allergies Home Medications ?Medication ?Instructions ?Recorded ?Confirmed ?Last Taken ?Type loratadine 10 mg tablet 10 mg PO DAILY@08 03/02/21 08/13/24 08/13/24 History potassium chloride 20 mEq 20 meq PO BID@,17 04/20/21 08/13/24 08/13/24 History tablet,extended release gabapentin 300 mg capsule 300 mg PO TID 01/19/22 08/13/24 08/13/24 History omeprazole 20 mg capsule,delayed 20 mg PO DAILY 05/12/22 08/13/24 08/13/24 History release lacosamide 200 mg tablet (Vimpat) 200 mg PO BID 05/13/22 08/13/24 08/13/24 History venlafaxine 150 mg 150 mg PO DAILY 05/13/22 08/13/24 04/27/24 History capsule,extended release 24 hr (Effexor XR) levetiracetam 1,000 mg tablet 1,500 mg PO BID 11/08/23 08/13/24 08/13/24 History (Keppra) ondansetron HCl 4 mg tablet 4 mg PO Q4H PRN Nausea And Vomiting 04/04/24 08/13/24 08/13/24 History acetaminophen 325 mg tablet 650 mg PO Q6H Pain 04/09/24 08/13/24 08/13/24 History methenamine hippurate 1 gram tablet 1 g PO QID 04/28/24 08/13/24 08/13/24 History apixaban 5 mg tablet (Eliquis) 5 mg PO BID 05/21/24 08/13/24 08/13/24 History atorvastatin 40 mg tablet 40 mg PO DAILY 05/21/24 08/13/24 08/13/24 History carvedilol 3.125 mg tablet (Coreg) 3.125 mg PO BID 05/21/24 08/13/24 08/13/24 History clopidogrel 75 mg tablet (Plavix) 75 mg PO DAILY 05/21/24 08/13/24 08/13/24 History empagliflozin 10 mg tablet 10 mg PO DAILY 05/21/24 08/13/24 08/13/24 History (Jardiance) baclofen 20 mg tablet 20 mg PO BID 06/05/24 08/13/24 08/13/24 History ferrous sulfate 324 mg (65 mg 324 mg PO DAILY 06/05/24 08/13/24 08/13/24 History iron) tablet,delayed release interferon beta-1b 0.3 mg 0.3 ml SUBCUT DAILY 06/05/24 08/13/24 08/13/24 History subcutaneous kit levalbuterol HCl 1.25 mg/3 mL 1.25 mg inhalation Q4H 06/12/24 08/13/24 08/13/24 History solution for nebulization midodrine 5 mg tablet 5 mg PO TID 06/12/24 08/13/24 08/13/24 History salmeterol 50 mcg/dose blister 1 inh inhalation Q12H 06/12/24 08/13/24 08/13/24 History powder for inhalation (Serevent Diskus) tramadol 50 mg tablet 50 mg PO QID 06/12/24 08/13/24 Unknown History arginine-vitamin C-vitamin E oral 4.5 g PO DAILY 08/13/24 08/13/24 Unknown History 4.5 gram-156 mg/9.2 gram powder pkt (Arginaid) budesonide-formoterol HFA 160 2 puff inhalation BID 08/13/24 08/13/24 08/13/24 History mcg-4.5 mcg/actuation aerosol inhaler (Symbicort) hydrocodone 10 mg-acetaminophen 1 tab PO Q6H 08/13/24 08/13/24 08/13/24 History 325 mg tablet Allergies Allergy/AdvReac Type Severity Reaction Status Date / Time linezolid AdvReac Severe ADR-Seizure Verified 08/06/24 15:04 PFSH Acute PFSH: Medical History Tobacco use Sacral decubitus ulcer Presence of urostomy long term resident Asthma Generalized epilepsy Gallstone pancreatitis Struvite kidney stones Onychodystrophy Depression, endogenous Staghorn renal calculus Multiple sclerosis Seizure Anxiety Depression Hypertension Cerebellar tremor Anemia GERD (gastroesophageal reflux disease) Plantar callus Surgical History Status post laparoscopic cholecystectomy (07/16/21) S/P ERCP H/O cervical biopsy History of biopsy of bladder H/O: hysterectomy History of urostomy Family History Family/Other Cancer Hyperlipidemia Hypertension Denies family history of Diabetes CAD (coronary artery disease) Clotting disorder Dementia Psychiatric illness Chronic kidney disease (CKD) Suicide Anesthesia complication Bleeding disorder Family history of premature coronary artery disease Lung disease Stroke Social History Smoking and tobacco/nicotine status: former use of tobacco/nicotine Alcohol intake: never Substance/Drug Use: never Housing: Intermediate Marital status: Current occupational status: retired and disabled Vitals/I&O/Wt Last Vital Signs Temp 98.7 F 08/13/24 17:00 Pulse 76 08/13/24 18:11 Resp 15 08/13/24 18:00 BP 95/58 08/13/24 18:00 Pulse Ox 100 08/13/24 18:11 O2 Del Method Room Air 08/13/24 18:11 O2 Flow Rate 3 08/13/24 12:45 08/13/24 08/13/24 08/13/24 06:59 14:59 22:59 Intake Total 1796.22 / 1796.22 817.875 / 2614.095 Balance 1796.22 / 1796.22 817.875 / 2614.095 Weight last 48 hrs Weight 53 kg Weight 59.874 kg Physical Exam Const: COMMON NORMALS: negative for patient oriented x3 and negative for alert GENERAL APPEARANCE: not cooperative ORIENTATION/CONSCIOUSNESS: not awake HENMT: COMMON NORMALS: oropharynx normal Neck/C-Spine: COMMON NORMALS: no JVD Resp: COMMON NORMALS: normal respiratory effort and clear to auscultation bilaterally AUSCULTATION: clear to auscultation bilaterally Cardio: COMMON NORMALS: no JVD, regular rhythm, S1 normal heart sound present, S2 normal heart sound present and No murmurs present (Cardio) RHYTHM: regular rhythm HEART SOUNDS: S1 normal heart sound present and S2 normal heart sound present GI: COMMON NORMALS: Normal to inspection, nondistended, normoactive bowel sounds present, Soft to palpation and non-tender PALPATION: Yes Soft to palpation Extremity: COMMON NORMALS: no joint enlargement and no pedal edema Neuro: COMMON NORMALS: negative for patient oriented x3 and negative for moves all extremities SENSORIUM/ORIENTATION: No alert Sepsis: Is patient septic: Yes Focused sepsis exam performed: Yes Focused sepsis exam: Altered mental status. Prolonged capillary refill. Minimal mottling of extremities. Date exam was performed: 08/13/24 Time exam was performed: 16:00 Data 08/13/24 12:12 08/13/24 12:12 Micro: Microbiology 08/13/24 13:22 Blood Culture - Preliminary Blood SPECIMEN COLLECTED 08/13/24 12:12 Blood Culture - Preliminary Blood SPECIMEN COLLECTED A&P Assessment and plan (1) Septic shock: Septic shock with tachycardia low 100s, leukocytosis 31.6, with urinary source, 40-55 WBC in urine, more than 100 RBC. With lactic acidosis 4.2, persistent shock despite fluid resuscitation, requiring pressor initiation, had to be uptitrated to 4 mcg/min. Without obstructive uropathy on CT. Reviewed vitals, CBC, INR, ABG, CMP, lactic acid, ER provider note, discussed with ER provider. Reviewed chest x-ray, CT abdomen pelvis. EKG. Will request troponin EKG series. Blood cultures been collected, received empiric Zosyn and vancomycin. Continue empiric Zosyn. Follow-up urine culture. (2) GI bleed: With dark/black stools in ER. Hemoglobin 9.4. Recheck blood counts obtained, with fluid resuscitation decreased down to 6.6. Received 80 mg IV PPI. Continue 40 mg IV twice daily. Transfuse RBC. Reassess blood counts. Keep n.p.o. Once hemodynamically more stabilized will benefit from endoscopic evaluation, please obtain surgical consultation once more stable to be able to undergo endoscopy. Hold anticoagulation with Eliquis, hold Plavix for now. Resume when possible. (3) UTI (urinary tract infection): Without obstructive uropathy on review of CT. Continue Zosyn. Follow-up urine culture. (4) Encephalopathy acute: Acute metabolic encephalopathy secondary to urinary tract infection, sepsis, septic shock. Possible medication toxicity in setting of RAFA. Hold gabapentin for now. Reassess vitals, mental status. N.p.o. for now due to lethargy, inability to safely swallow medications. Reassess mental status. Plan RAFA: Creatinine up to 1.4. Received fluid resuscitation. Suspect prerenal RAFA with hypotension, septic shock, without obstructive uropathy, however, possible ATN. Reassess renal function. Monitor intake and output. Large decubitus ulcer on the sacrum, decubitus ulcers on the right heel. Continue wound care. Appreciate wound care consultation. Nephrolithiasis: Incidentally noted on CT. With noted hematuria. Severe UTI. Will benefit from postdischarge follow-up with urology. Compression fracture superior endplate L4. Mild compression spear endplate T12 which is new. Will benefit from follow-up with primary provider. Constipation: Incidentally noted on CT. Multiple sclerosis PDMP PDMP Reviewed: Not Reviewed Attestations Medical Necessity Statement*: Admission over 2 midnights anticipated for assessment and management of septic shock. Coding Level of Care Code Critical Care >/= 30 minutes Critical care time (in minutes): 40 The high probability of a clinically significant, sudden or life threatening deterioration, as referenced in this documentation, required my full and direct attention, intervention and personal management. The critical care time shown is in addition to time spent performing any reported separately billable procedures and includes the following: [x] Data and vital sign review and interpretation [x] Patient assessment, examination and intervention [x] Medication orders and management [x] Patient/Family updates as able [x] Care Coordination and Documentation. Diagnoses Septic shock A41.9; R65.21 GI bleed K92.2 UTI (urinary tract infection) N39.0 Encephalopathy acute G93.40
--- NOTE | 2024-08-13 19:01 | PC.NURSE ---
Hgb recheck, result 6.6. Dr. nolen gives order to transfuse 1 unit of PRBC as previously ordered.
--- NOTE | 2024-08-13 19:52 | PC.NURSE ---
Blood transfusion When transfusing patient's unit of PRBC, she had a run of SVT at a rate of 150. Patient had two previous runs of SVT as well before blood was transfusing. Blood was stopped and normal saline started infusing. Dr Umanzor was contacted about SVT and he stated that SVT was due to patient's anemia and to continue transfusing blood. Blood resumed and transfusing at 150 ml/hr.
[2024-08-13] MEDS: amiodarone 150 MG/100 ML PREMIX 400 MG IV (20:23)
[2024-08-13] MEDS: pantoprazole 40 mg SDV IVP (23:34)
[2024-08-14] VITALS (64 sets, daily range): BP systolic 79–130; BP diastolic 47–88; PULSE 50–87; RESP 4–24; TEMP 36.2–36.9; O2SAT 89–100
[2024-08-14] MEDS: norepinephrine 4 MG/250 ML BAG 22.5 MG IV (01:37)
[2024-08-14] MEDS: piperacillin-tazobactam 3.375 GM in sodium chloride 0.9% (plus) 50 ML IV ×3 (02:08→17:40)
[2024-08-14 03:55] LABS: Basophils # 0.1 10^3/uL (0.0-0.1); Basophils % 0.2 %; Eosinophils # 0.1 10^3/uL (0.0-0.8); Eosinophils % 0.3 %; Lymphocytes # 1.3 10^3/uL (0.8-4.8); Lymphocytes % 3.6 %; Mean Corpuscular HGB Conc 29.4 g/dL (30-55); Mean Corpuscular Hemoglobin 27.2 pg (27-33); Mean Corpuscular Volume 92.5 fl (85-98); Monocytes # 1.4 10^3/uL (0.2-0.9); Monocytes % 3.8 %; Neutrophils # 32.79 10^3/uL (1.8-7.7); Neutrophils % 89.4 %; Nucleated Red Blood Cells # 0.1 /100WBC; Nucleated Red Blood Cells % 0.2 %; Platelet Count 538 10^3/cmm (157-399); Red Blood Count 3.35 10^6/uL (3.85-5.65); Red Cell Distribution Width 18.2 % (12.1-15.1)
[2024-08-14 04:21] LABS: Alanine Aminotransferase 11 U/L (0-33); Albumin Level 1.8 g/dL (3.5-5.2); Alkaline Phosphatase 153 U/L (35-105); Anion Gap 14.1 (5-19); Aspartate Amino Transferase 18 U/L (0-32); Blood Urea Nitrogen 43 mg/dL (6-20); Calcium 7.8 mg/dL (8.5-10.5); Carbon Dioxide 12 mmol/L (22-29); Chloride 125 mmol/L (98-107); Glomerular Filtration Rate 65.2 mL/min (90-130); Glucose 123 mg/dL (65-115); Osmolality Calculated 318 mOsm/kg (285-295); Phosphorus 3.1 mg/dL (2.5-4.5); Potassium 3.1 mmol/L (3.5-5.1); Sodium 148 mmol/L (136-145); Total Bilirubin 0.3 mg/dL (0.15-1.2); Total Protein 5.8 g/dL (6.6-8.7)
[2024-08-14] MEDS: lidocaine 1% 5 ML in potassium chloride premix 100 ML 26.25 ML IV (08:35)
--- NOTE | 2024-08-14 10:11 | ECG_ITS ---
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 Measurements Intervals [place] Rate: 82 P: 19 MN: 145 QRS: -89 QRSD: 106 T: 51 QT: 383 QTc: 448 Interpretive Statements SINUS RHYTHM LOW QRS VOLTAGE IN PRECORDIAL LEADS [QRS DEFLECTION < 1.0 mV IN CHEST LEADS] POSSIBLE RIGHT VENTRICULAR CONDUCTION DELAY [RSR (QR) IN V1/V2] LEFT ANTERIOR FASCICULAR BLOCK [QRS AXIS <= -45, QR IN I, RS IN II] ANTEROLATERAL MYOCARDIAL INFARCTION , PROBABLY RECENT [40+ ms Q WAVE IN I/aVL/V3-V6] ACUTE NH Compared to ECG 08/13/2024 11:45:32 Low QRS voltage now present Sinus tachycardia no longer present Myocardial infarct finding still present Electronically Signed On 08-14-2024 18:50:18 CDT by Yousuf Lorenzo M.D. [email or web address]
--- NOTE | 2024-08-14 10:29 | PC.NURSE ---
St change noted on monitor see EKG, DR. Alberts notified received order for troponin stat
[2024-08-14 11:36] LABS: Troponin T (5th) Once 51 ng/L (0-10)
--- NOTE | 2024-08-14 11:59 | P.PN_ITS ---
Subjective 2 Subjective: Patient ana paula critically ill. She is awake but not able to provide pertinent history. Medications: Reviewed: Yes Vitals/I&O/Wt Last Vital Signs Temp 98.4 F 08/14/24 08:00 Pulse 68 08/14/24 10:59 Resp 14 08/14/24 09:31 BP 80/49 08/14/24 09:31 Pulse Ox 98 08/14/24 10:59 O2 Del Method Room Air 08/14/24 10:59 O2 Flow Rate 3 08/13/24 12:45 08/13/24 08/14/24 08/14/24 22:59 06:59 14:59 Intake Total 1223.000 / 3019.220 505.203 / 3524.423 199.401 / 199.401 Balance 1223.000 / 3019.220 505.203 / 3524.423 199.401 / 199.401 Weight last 48 hrs Weight 53 kg Weight 59.874 kg Physical Exam 2 Narrative: General: Patient is awake. Chronically ill-appearing. Head: Normocephalic. Dysarthric speech. Neck: No JVD. Cardiovascular: RRR. No gallops. No murmurs. Lungs: Clear to auscultation, no use of accessory muscles, no crackles or wheezes. Skin: No jaundice. No rashes. Abdomen: Normal bowel sounds, abdomen soft and nontender. Extremities: No cyanosis or clubbing. Musculoskeletal: No swollen or erythematous joints. Neurological: No myoclonus. Data 08/14/24 03:22 08/14/24 03:22 Micro: Microbiology 08/13/24 14:51 Urine Culture - Preliminary Urine,Clean Catch Gram Negative Rods 08/13/24 13:22 Blood Culture - Preliminary Blood SPECIMEN COLLECTED 08/13/24 12:12 Blood Culture - Preliminary Blood SPECIMEN COLLECTED A&P Assessment and plan (1) Septic shock: Septic shock secondary to acute complicated UTI Patient remains in shock, continue Levophed support for MAP goal of 65 mmHg Persistent severe leukocytosis noted Follow cultures Continue broad-spectrum antibiotics (2) UTI (urinary tract infection): As above (3) GI bleed: Reported melena in ER Continue IV PPI Transfuse if needed Holding anticoagulation, antiplatelets (4) Encephalopathy acute: Acute metabolic encephalopathy Hold sedating medications Serial exams Plan RAFA: Resolved after fluid resuscitation Hypokalemia: Replace potassium via IV Acute on chronic metabolic acidosis: Considering bicarb drip however already hypernatremic. There is also component of hyperchloremia. Avoid NS products for now. Given multiple electrolyte derangements, will repeat labs this afternoon and determine about IV fluids at that time. Hyponatremia: Monitor Large decubitus ulcer on the sacrum, decubitus ulcers on the right heel. Continue wound care. Appreciate wound care consultation. Nephrolithiasis: Can be referred to urology at discharge. Compression fracture superior endplate L4. Mild compression spear endplate T12 which is new. Will benefit from follow-up with primary provider. Constipation: Incidentally noted on CT. Multiple sclerosis: Seems advanced. Severe protein calorie malnutrition: Monitor intake PDMP PDMP Reviewed: Not Reviewed Attestations 2 Medical Necessity Statement*: Patient requires ongoing hospitalization for IV Levophed, IV antibiotics, electrolyte management, and supportive care. Critical Care Time: The high probability of a clinically significant, sudden or life threatening deterioration of the patient's circulatory system(s) required my full and direct attention, intervention and personal management. The critical care time is as shown. This time is in addition to time spent performing any reported procedures but includes the following: [x] Data and vital sign review and interpretation [x] Patient assessment, examination and intervention [x] Documentation [x] Medication orders and management Critical Care Time (min): 35 Coding Level of Care Code Acute Code for Chg Fwd Diagnoses Septic shock A41.9; R65.21 UTI (urinary tract infection) N39.0 GI bleed K92.2 Encephalopathy acute G93.40
[2024-08-14] MEDS: pantoprazole 40 mg SDV IVP ×2 (12:50→23:00)
[2024-08-14 12:54] LABS: Albumin Level 1.9 g/dL (3.5-5.2); Anion Gap 14.1 (5-19); Blood Urea Nitrogen 43 mg/dL (6-20); Calcium 7.9 mg/dL (8.5-10.5); Carbon Dioxide 12 mmol/L (22-29); Chloride 127 mmol/L (98-107); Glomerular Filtration Rate 74.7 mL/min (90-130); Glucose 104 mg/dL (65-115); Potassium 5.1 mmol/L (3.5-5.1); Sodium 148 mmol/L (136-145)
[2024-08-14] MEDS: dextrose 5% 1,000 ML 40 ML IV (14:50)
--- NOTE | 2024-08-14 15:30 | P.CONIM_ITS ---
<Statement entered by Mani Coulter MD - 08/14/24 16:45> I have reviewed the documentation and plan of care and agree with the assessment and plan of care as written. Dr. Mani Coulter Providers/Reason For Consult 2 Consulting Physician/Specialty*: Wound care Reason for Consult*: Chronic pressure ulcers Requesting Physician: Dr. Jaramillo Attending Physician: Mike Alberts MD Primary Care Provider: Tony Keys MD History of Present Illness History of Present Illness Teresa Moraes is a 54 year old female who was brought to the emergency department from [facility] yesterday for complaints of altered mental status. She was subsequently admitted to ICU under hospitalist services for septic shock, possible GI bleed, urinary tract infection, encephalopathy, and acute kidney injury. Her past medical history includes multiple sclerosis, myocardial infarction, anemia, seizure disorder, hypertension, small bowel obstruction, depression, hydronephrosis of the right kidney, and chronic pressure ulcers. We were consulted to evaluate and provide recommendations for wound care on the open pressure ulcer to her sacrum and right calcaneus. She is a former smoker, quit approximately 1-2 months ago. I see her weekly at [facility]. She is normally able to answer questions and follow commands. Her health has been significantly declining over the past 6 months. She was offered hospice service by her primary care at [facility], Dr. Keys and has refused. She was able to tell me her first name but not her last name. When asked if she was in pain she stated no. Review of Systems 2 General: Reports: ROS unobtainable due to medical condition and ROS unobtainable due to mental status Narrative: Patient was able to state her first name, patient unable to state her last name, when asked if she is in pain patient states no Medications/Allergies Home Medications ?Medication ?Instructions ?Recorded ?Confirmed ?Last Taken ?Type loratadine 10 mg tablet 10 mg PO DAILY@03/02/21 0 08/13/24 08/13/24 History potassium chloride 20 mEq 20 meq PO BID@,04/20/21 08/13/24 08/13/24 History tablet,extended release gabapentin 300 mg capsule 300 mg PO TID 01/19/2208/1308/13/24 History omeprazole 20 mg capsule,delayed 20 mg PO DAILY 08/13/24 08/13/24 History release lacosamide 200 mg tablet (Vimpat) 200 mg PO BID 08/13/24 08/13/24 History venlafaxine 150 mg 150 mg PO DAILY 05/13/2211/3004/27/24 History capsule,extended release 24 hr (Effexor XR) levetiracetam 1,000 mg tablet 1,500 mg PO BID 11/08/23 08/13/24 08/13/24 History (Keppra) ondansetron HCl 4 mg tablet 4 mg PO Q4H PRN Nausea And Vomiting 04/04/24 08/13/24 08/13/24 History acetaminophen 325 mg tablet 650 mg PO Q6H Pain 4 08/13/24 08/13/24 History methenamine hippurate 1 gram tablet 1 g PO QID 4 08/13/24 08/13/24 History apixaban 5 mg tablet (Eliquis) 5 mg PO BID 05/21/2408/13/24 History atorvastatin 40 mg tablet 40 mg PO DAILY 05/21/2411/3008/13/24 History carvedilol 3.125 mg tablet (Coreg) 3.125 mg PO BID 08/13/24 08/13/24 History clopidogrel 75 mg tablet (Plavix) 75 mg PO DAILY 05/2108/13/24 08/13/24 History empagliflozin 10 mg tablet 10 mg PO DAILY 05/21/2411/3008/13/24 History (Jardiance) baclofen 20 mg tablet 20 mg PO BID 06/05/2408/13/24 History ferrous sulfate 324 mg (65 mg 324 mg PO DAILY 06/05/24 08/13/24 08/13/24 History iron) tablet,delayed release interferon beta-1b 0.3 mg 0.3 ml SUBCUT DAILY 06/05/24 08/13/24 08/13/24 History subcutaneous kit levalbuterol HCl 1.25 mg/3 mL 1.25 mg inhalation Q4H 0 06/12/24 08/13/24 08/13/24 History solution for nebulization midodrine 5 mg tablet 5 mg PO TID 06/12/24 5 08/13/24 History salmeterol 50 mcg/dose blister 1 inh inhalation Q12H 0 06/12/24 08/13/24 08/13/24 History powder for inhalation (Serevent Diskus) tramadol 50 mg tablet 50 mg PO QID 06/12/24 Unknown History arginine-vitamin C-vitamin E oral 4.5 g PO DAILY 08/1308/13/24 Unknown History 4.5 gram-156 mg/9.2 gram powder pkt (Arginaid) budesonide-formoterol HFA 160 2 puff inhalation BID 08/13/24 08/13/24 History mcg-4.5 mcg/actuation aerosol inhaler (Symbicort) hydrocodone 10 mg-acetaminophen 1 tab PO Q6H 08/13/24 08/13/24 08/13/24 History 325 mg tablet Allergies Allergy/AdvReac Type Severity Reaction Status Date / Time linezolid AdvReac Severe ADR-Seizure Verified 08/06/24 15:04 Current Medications Generic Name Dose Route Start Last Admin Trade Name Freq PRN Reason Stop Dose Admin Norepinephrine Bitartrate 4 mg in 250 mls @ 0 mls/hr 08/13/24 14:30 08/14/24 13:25 Levophed IV 4 mcg/min .Q0M BIJAN 15 mls/hr Titration Protocol Per Protocol Piperacillin Sod/Tazobactam 50 mls @ 12.5 mls/hr 08/13/24 18:00 08/14/24 13:26 Sod 3.375 gm/ Sodium Chloride IV Infused Q8H BIJAN Infusion Protocol Amiodarone HCl/Dextrose 360 mg in 200 mls @ 0 mls/hr 08/13/24 20:45 08/14/24 10:03 Nexterone IV 0 mg/min .Q0M BIJAN 0 mls/hr Titration Protocol Per Protocol Dextrose 1,000 mls @ 40 mls/hr 08/14/24 14:30 08/14/24 14:50 D5w IV 40 mls/hr .Q24H BIJAN Administration Pantoprazole Sodium 40 mg 08/13/24 23:59 08/14/24 12:50 Pantoprazole 40 Mg Sdv IVP 40 mg Q12H BIJAN Administration PFSH Acute 2 PFSH: Medical History Tobacco use Sacral decubitus ulcer Presence of urostomy custodial resident Asthma Generalized epilepsy Gallstone pancreatitis Struvite kidney stones Onychodystrophy Depression, endogenous Staghorn renal calculus Multiple sclerosis Seizure Anxiety Depression Hypertension Cerebellar tremor Anemia GERD (gastroesophageal reflux disease) Plantar callus Surgical History Status post laparoscopic cholecystectomy (07/16/21) S/P ERCP H/O cervical biopsy History of biopsy of bladder H/O: hysterectomy History of urostomy Family History Family/Other Cancer Hyperlipidemia Hypertension Denies family history of Diabetes CAD (coronary artery disease) Clotting disorder Dementia Psychiatric illness Chronic kidney disease (CKD) Suicide Anesthesia complication Bleeding disorder Family history of premature coronary artery disease Lung disease Stroke Social History Smoking and tobacco/nicotine status: former use of tobacco/nicotine Alcohol intake: never Substance/Drug Use: never Housing: [facility] Marital status: Current occupational status: retired and disabled Vitals/I&O/Wt Last Vital Signs Temp 98.2 F 08/14/24 12:45 Pulse 52 L 08/14/24 14:00 Resp 10 L 08/14/24 12:45 BP 103/60 08/14/24 12:45 Pulse Ox 100 08/14/24 12:45 O2 Del Method Room Air 08/14/24 10:59 O2 Flow Rate 3 08/13/24 12:45 08/14/24 08/14/24 08/14/24 06:59 14:59 22:59 Intake Total 505.203 / 3524.423 388.401 / 388.401 Balance 505.203 / 3524.423 388.401 / 388.401 Weight last 48 hrs Weight 53 kg Weight 59.874 kg Physical Exam 2 Const: GENERAL APPEARANCE: cooperative, disheveled, ill appearing and frail appearing NUTRITIONAL APPEARANCE: thin ORIENTATION/CONSCIOUSNESS: Yes confused Chest: CHEST: Yes Symmetrical chest wall rise Resp: COMMON NORMALS: normal respiratory effort and No retractions EFFORT & INSPECTION: Yes symmetric chest movement Cardio: COMMON NORMALS: regular rate RATE: regular rate : BLADDER/KIDNEY EXAM: Yes other (Urostomy in place) Neuro: SPEECH: abnormal speech GAIT: Yes Unable to assess gait (Bedbound) Psych: COMMON NORMALS: negative for speech normal APPEARANCE: Yes disheveled ACTIVITY/MOTOR BEHAVIOR: No appropriate eye contact SPEECH: No normal speech Skin: WOUNDS: Yes wounds noted (See wound assessment) Data 08/14/24 03:22 08/14/24 10:43 Micro: Microbiology 08/13/24 13:22 Blood Culture - Preliminary Blood NEGATIVE TO DATE 08/13/24 12:12 Blood Culture - Preliminary Blood NEGATIVE TO DATE 08/13/24 14:51 Urine Culture - Preliminary Urine,Clean Catch Gram Negative Rods A&P Assessment and plan (1) Pressure ulcer of sacral region, stage 4: (2) Deep tissue injury: Plan Chronic stage IV pressure ulcer of the sacrum measures slightly larger than last time she was evaluated 1 week ago. There was no odor appreciated nor was purulent drainage on the dressing. Palpable and visible bone is present in the wound bed. There is undermining noted from 8-2 o'clock with a maximum of 1.8 cm. Within the wound there are isolated areas of necrotic tissue that would benefit from debridement in the near future. Given her critically ill status, debridement is not appropriate at this time. There is excoriation noted to the inferior periwound area near her anus. We will use a wet-to-dry dressing with Dakin's 0.125% to the wound bed and undermined area twice daily. This should be covered with dry gauze and an ABD pad and secured in her brief. No adhesive should be used on her skin to prevent trauma. We will utilize Triad to the inferior periwound near her anus. There is a deep tissue injury present on her right calcaneus which has been present for many months. It remains stable without drainage, erythema, or warmth. We will paint this area with Betadine and cover with an OPTi foam. This should be changed daily Ms. Moraes is on a pressure relieving bed that is able to tilt her from [id number]. This will help relieve pressure directly over the sacrum. She should be turned at minimum every 2 hours. Use pillows, foam cushions, mattress pads, or other aids to reduce pressure on vulnerable areas. Remove pressure from medical devices like catheters and oxygen tubing. It would be adventageous for this bed to go with her if she was to transfer to a different floor. She has padded heel protectors in place. These should remain on at all times to prevent further breakdown to her feet. Nutrition will be especially important for wound healing. At this time she is n.p.o. Per nursing staff, she will have a swallowing evaluation completed once she is more alert and able to better follow commands. It may be advantageous to consider a PEG tube for enteral nutrition prior to discharge if she is unable to meet her caloric needs by mouth. PDMP PDMP Reviewed: Not Reviewed Consult Attestations 2 Time Spent in Patient Care: 16 - 35 minutes Coding Level of Care Code Acute Code for Chg Fwd Diagnoses Pressure ulcer of sacral region, stage 4 L89.154 Deep tissue injury T14.8XXA Wound Assessment Wound Assessment Wound Number 1 Sacrum: Cluster Wound: Yes Primary Etiology:: Pressure Ulcer Length: (cm): 14.5 cm Width: (cm): 14.5 cm Depth: (cm): 2 cm Epithelialization:: None Tunneling:: No Undermining:: Yes (8-2 o'clock with a maximum of 1.8cm) Classification: Stage 4 Limited to Skin Breakdown: No Exudate Amount:: Large Drainage Type: Serosanguineous Foul Odor After Cleansing:: No Slough/Fibrin?: Yes Granulation Amount: Small (1-33%) Granulation Quality:: Red and [place] Necrotic Amount:: Medium (34-66%) Necrotic Type:: Eschar and Adherent Slough Non Wound Condition 1 Heel: Descriptor: Right Length: (cm): 3.8 cm Width: (cm): 2.5 cm Deep tissue injury Exudate Amount:: None Present: Wound Orders Wound Number 1: Sacral pressure ulcer stage 4 Dressing change frequency: Twice Daily and Other (PRN if soiled or saturated ) Wound Cleansing: Saline Skin Barriers/Maida-Wound Care: Other (Triad to the periwound near anus) Primary Wound Care Dressing: damp gauze using Dakins 0.125% solution twice daily Secondary Wound Care Dressing: dry gauze and ABD Bathing/Showering/Hygiene: May shower with protection but do not get dressing wet. Off-Loading: Low air-loss mattress, Roho cushion for wheelchair and Turn and reposition every 2 hours Non Wound Condition 1: right heel Dressing change frequency: Daily Wound Cleansing: Soap and Water Skin Barriers/Maida-Wound Care: Betadine Primary Wound Care Dressing: Secondary Wound Care Dressing: optifoam Bathing/Showering/Hygiene: Do not shower or bathe in tub. Sponge bath only. Off-Loading: Low air-loss mattress, Turn and reposition every 2 hours and Other (padded heel protectors )
[2024-08-14] MEDS: norepinephrine 4 MG/250 ML BAG 15 MG IV (15:53)
[2024-08-14 21:38] LABS: Blood Urea Nitrogen 38 mg/dL (6-20); Calcium 8.1 mg/dL (8.5-10.5); Chloride 126 mmol/L (98-107); Glomerular Filtration Rate 87.2 mL/min (90-130); Glucose 100 mg/dL (65-115); Phosphorus 2.6 mg/dL (2.5-4.5); Potassium 3.1 mmol/L (3.5-5.1); Sodium 148 mmol/L (136-145)
[2024-08-14 22:22] LABS: Albumin Level 1.9 g/dL (3.5-5.2)
[2024-08-14 22:35] LABS: Anion Gap 12.1 (5-19); Carbon Dioxide 13 mmol/L (22-29)
[2024-08-15] VITALS (100 sets, daily range): BP systolic 80–123; BP diastolic 51–89; PULSE 53–157; RESP 10–46; TEMP 36.2–36.5; O2SAT 98–100
[2024-08-15] MEDS: piperacillin-tazobactam 3.375 GM in sodium chloride 0.9% (plus) 50 ML IV ×3 (02:30→17:15)
[2024-08-15] MEDS: lidocaine 1% 5 ML in potassium chloride premix 100 ML 26.25 ML IV ×2 (02:59→06:47)
[2024-08-15 04:14] LABS: Basophils # 0.1 10^3/uL (0.0-0.1); Basophils % 0.2 %; Hematocrit 32.7 % (36-47); Lymphocytes # 0.6 10^3/uL (0.8-4.8); Mean Corpuscular Hemoglobin 27.6 pg (27-33); Mean Corpuscular Volume 92.1 fl (85-98); Mean Platelet Volume 9.1 fL (7.4-10.4); Monocytes # 1.3 10^3/uL (0.2-0.9); Monocytes % 4.3 %; Neutrophils # 28.69 10^3/uL (1.8-7.7); Neutrophils % 91.9 %; Nucleated Red Blood Cells # 0.1 /100WBC; Nucleated Red Blood Cells % 0.3 %; Platelet Count 468 10^3/cmm (157-399); Red Blood Count 3.55 10^6/uL (3.85-5.65)
[2024-08-15 04:36] LABS: Alanine Aminotransferase 11 U/L (0-33); Alkaline Phosphatase 175 U/L (35-105); Anion Gap 12.8 (5-19); Aspartate Amino Transferase 15 U/L (0-32); Blood Urea Nitrogen 37 mg/dL (6-20); Calcium 8.3 mg/dL (8.5-10.5); Carbon Dioxide 13 mmol/L (22-29); Chloride 126 mmol/L (98-107); Glomerular Filtration Rate 87.2 mL/min (90-130); Glucose 91 mg/dL (65-115); Magnesium 1.8 mg/dL (1.7-2.3); Osmolality Calculated 316 mOsm/kg (285-295); Phosphorus 2.6 mg/dL (2.5-4.5); Sodium 149 mmol/L (136-145); Total Bilirubin 0.2 mg/dL (0.15-1.2)
[2024-08-15 05:18] LABS: Potassium 2.8 mmol/L (3.5-5.1)
[2024-08-15 05:19] LABS: White Blood Count 31.22 10^3/uL (3.29-11.43)
[2024-08-15] MEDS: sodium hypochlorite 0.125% Btl 473 mL 1 APPLIC TOPICAL ×2 (09:41→22:41)
--- NOTE | 2024-08-15 10:31 | P.PN_ITS ---
Subjective 2 Subjective: Patient is more awake this morning. Speech is improved at times still incomprehensible. Levophed weaned off overnight. She remains n.p.o. Discussed plan of care for today. Hopeful for swallow evaluation so home meds can be restarted. She seems to deny other new complaints. Medications: Reviewed: Yes Vitals/I&O/Wt Last Vital Signs Temp 97.7 F 08/15/24 09:41 Pulse 88 08/15/24 08:45 Resp 29 H 08/15/24 08:45 BP 93/61 08/15/24 08:45 Pulse Ox 100 08/15/24 08:45 O2 Del Method Room Air 08/14/24 20:30 O2 Flow Rate 3 08/13/24 12:45 08/14/24 08/15/24 08/15/24 22:59 06:59 14:59 Intake Total 118.75 / 507.151 833.792 / 1340.943 Output Total 700 / 700 350 / 1050 Balance -581.25 / -192.849 483.792 / 290.943 Weight last 48 hrs Weight 53 kg Weight 53 kg Weight 59.874 kg Physical Exam 2 Narrative: General: Patient is awake. Chronically ill-appearing, although less so than yesterday's exam. Head: Normocephalic. Dysarthric speech, improved. Neck: No JVD. Cardiovascular: RRR. No gallops. No murmurs. Lungs: Clear to auscultation, no use of accessory muscles, no crackles or wheezes. Skin: No jaundice. No rashes. Abdomen: Normal bowel sounds, abdomen soft and nontender. Extremities: No cyanosis or clubbing. Musculoskeletal: No swollen or erythematous joints. Neurological: No myoclonus. Data 08/15/24 02:59 08/15/24 02:59 Micro: Microbiology 08/13/24 13:22 Blood Culture - Preliminary Blood NEGATIVE TO DATE 08/13/24 12:12 Blood Culture - Preliminary Blood NEGATIVE TO DATE 08/13/24 14:51 Urine Culture - Preliminary Urine,Clean Catch Gram Negative Rods A&P Assessment and plan (1) Septic shock: Shock is improving; now off Levophed She is on chronic midodrine which would like to restart once oral intake resumes; hopefully today Persistent severe leukocytosis noted Follow cultures, currently gram-negative, awaiting identification and speciation Continue broad-spectrum antibiotics (2) UTI (urinary tract infection): As above (3) GI bleed: Reported melena in ER; continue to monitoring bowel movements Continue IV PPI Transfuse as needed Holding anticoagulation, antiplatelets (4) Encephalopathy acute: Acute metabolic encephalopathy Mentation is improving Speech therapy evaluation requested Serial exams Plan Severe hypokalemia: Replace potassium via IV. Will repeat labs later today. Acute on chronic metabolic acidosis: She remains persistently acidotic. Would plan to start on bicarb tabs once oral intake resumes. Hypernatremia: continue D5W infusion, increased rate. Repeating labs this afternoon. Large decubitus ulcer on the sacrum, decubitus ulcers on the right heel. Continue wound care. Nephrolithiasis: Can be referred to urology at discharge. Compression fracture superior endplate L4. Mild compression spear endplate T12 which is new. Will benefit from follow-up with primary provider. Constipation: Incidentally noted on CT. Monitor. Multiple sclerosis: Seems advanced. Severe protein calorie malnutrition: Monitor intake. Hope to resume oral intake soon. Speech therapy consults none requested. DVT prophylaxis: SCD CODE STATUS: Full code PDMP PDMP Reviewed: Not Reviewed Attestations 2 Medical Necessity Statement*: Patient requires ongoing hospitalization for IV antibiotics, electrolyte management, speech therapy evaluation, and supportive care. Coding Level of Care Code Acute Code for Chg Fwd Diagnoses Septic shock A41.9; R65.21 UTI (urinary tract infection) N39.0 GI bleed K92.2 Encephalopathy acute G93.40
[2024-08-15] MEDS: pantoprazole 40 mg SDV IVP (11:06)
[2024-08-15 12:20] LABS: Albumin Level 1.8 g/dL (3.5-5.2); Anion Gap 11.6 (5-19); Blood Urea Nitrogen 31 mg/dL (6-20); Carbon Dioxide 13 mmol/L (22-29); Chloride 129 mmol/L (98-107); Glomerular Filtration Rate 128.6 mL/min (90-130); Glucose 78 mg/dL (65-115); Phosphorus 2.1 mg/dL (2.5-4.5); Potassium 3.6 mmol/L (3.5-5.1); Sodium 150 mmol/L (136-145)
[2024-08-15] MEDS: dextrose 5% 1,000 ML 75 ML IV (12:28)
--- NOTE | 2024-08-15 14:14 | P.PN_ITS ---
Subjective 2 Subjective: Ms. Moraes was evaluated at bedside in the ICU today. She was resting in bed with a smile on her face. She was able to better articulate her words today although not making complete sense. She was able to tell me her full name. Still unable to tell me her date of . When turning her from [id number] she is complaining of pain. The wound dressings were intact. Her white blood cell count remains elevated. Vitals/I&O/Wt Last Vital Signs Temp 97.7 F 08/15/24 09:41 Pulse 80 08/15/24 12:45 Resp 33 H 08/15/24 12:45 BP 104/63 08/15/24 12:45 Pulse Ox 100 08/15/24 12:45 O2 Del Method Room Air 08/15/24 11:15 O2 Flow Rate 3 08/13/24 12:45 08/14/24 08/15/24 08/15/24 22:59 06:59 14:59 Intake Total 118.75 / 507.151 833.792 / 1340.943 529.667 / 529.667 Output Total 700 / 700 350 / 1050 Balance -581.25 / -192.849 483.792 / 290.943 529.667 / 529.667 Weight last 48 hrs Weight 53 kg Weight 53 kg Physical Exam 2 Const: COMMON NORMALS: no acute distress GENERAL APPEARANCE: cooperative, disheveled, ill appearing and frail appearing NUTRITIONAL APPEARANCE: thin ORIENTATION/CONSCIOUSNESS: Yes confused Chest: CHEST: Yes Symmetrical chest wall rise Resp: COMMON NORMALS: normal respiratory effort and No retractions EFFORT & INSPECTION: Yes symmetric chest movement Cardio: COMMON NORMALS: regular rate RATE: regular rate : BLADDER/KIDNEY EXAM: Yes other (Urostomy in place) Neuro: SPEECH: abnormal speech GAIT: Yes Unable to assess gait (Bedbound) Psych: COMMON NORMALS: negative for speech normal (improved from yesterday) APPEARANCE: Yes disheveled ACTIVITY/MOTOR BEHAVIOR: No appropriate eye contact SPEECH: No normal speech (improved from yesterday) Skin: WOUNDS: Yes wounds noted (See wound assessment) Data 08/15/24 02:59 08/15/24 11:47 Micro: Microbiology 08/13/24 13:22 Blood Culture - Preliminary Blood NEGATIVE TO DATE 08/13/24 12:12 Blood Culture - Preliminary Blood NEGATIVE TO DATE A&P Assessment and plan (1) Pressure ulcer of sacral region, stage 4: (2) Deep tissue injury: Plan Chronic stage IV pressure ulcer of the sacrum with substantial bone exposure appears to be stable. The periwound is negative for erythema, warmth, or induration. There is no odor or purulent drainage noted on the dressing material upon removal. The excoriation noted to the inferior periwound area near her anus is improved. Unfortunately, Triad is not available at this time therefore we will use a zinc-based barrier ointment to this area instead. We will use a wet-to-dry dressing with Dakin's 0.125% to the wound bed and undermined area twice daily. This should be covered with dry gauze and an ABD pad and secured in her brief. No adhesive should be used on her skin to prevent trauma. The deep tissue injury present on her right calcaneus which has been present for many months remains stable. There is no drainage, erythema, or warmth to this area. Continue painting with Betadine and covering with an Optifoam. This should be changed daily. Ms. Moraes is on a pressure relieving bed that is able to tilt her from [id number]. This will help relieve pressure directly over the sacrum. She should be turned at minimum every 2 hours. Use pillows, foam cushions, mattress pads, or other aids to reduce pressure on vulnerable areas. Remove pressure from medical devices like catheters and oxygen tubing. It would be adventageous for this bed to go with her if she was to transfer to a different floor. She has padded heel protectors in place. These should remain on at all times to prevent further breakdown to her feet. Nutrition will be especially important for wound healing. She will have a swallow evaluation by speech therapy. It may be advantageous to consider a PEG tube for enteral nutrition prior to discharge if she is unable to meet her caloric needs by mouth. PDMP PDMP Reviewed: Not Reviewed Attestations 2 Medical Necessity Statement*: Time Spent in Patient Care: 16 - 35 minutes Coding Level of Care Code Acute Code for Chg Fwd Diagnoses Pressure ulcer of sacral region, stage 4 L89.154 Deep tissue injury T14.8XXA Wound Assessment Wound Assessment Wound Number 1 Sacrum: Cluster Wound: Yes Primary Etiology:: Pressure Ulcer Length: (cm): 14.8 cm Width: (cm): 14.5 cm Depth: (cm): 2 cm Epithelialization:: None Tunneling:: No Undermining:: Yes (8-2 o'clock with a maximum of 1.8cm) Classification: Stage 4 Limited to Skin Breakdown: No Exudate Amount:: Large Drainage Type: Serosanguineous Foul Odor After Cleansing:: No Slough/Fibrin?: Yes Granulation Amount: Small (1-33%) Granulation Quality:: Red and [place] Necrotic Amount:: Medium (34-66%) Necrotic Type:: Eschar and Adherent Slough Non Wound Condition 1 Heel: Descriptor: Right Length: (cm): 3.8 cm Width: (cm): 2.5 cm Deep tissue injury Exudate Amount:: None Present: Wound Orders Wound Number 1: Sacral pressure ulcer stage 4 Dressing change frequency: Twice Daily and Other (PRN if soiled or saturated ) Wound Cleansing: Saline Skin Barriers/Maida-Wound Care: Other (Barrier ointment ) Primary Wound Care Dressing: damp gauze using Dakins 0.125% solution twice daily Secondary Wound Care Dressing: dry gauze and ABD Bathing/Showering/Hygiene: May shower with protection but do not get dressing wet. Off-Loading: Low air-loss mattress, Roho cushion for wheelchair and Turn and reposition every 2 hours Non Wound Condition 1: right heel Dressing change frequency: Daily Wound Cleansing: Soap and Water Skin Barriers/Maida-Wound Care: Betadine Primary Wound Care Dressing: Secondary Wound Care Dressing: optifoam Bathing/Showering/Hygiene: Do not shower or bathe in tub. Sponge bath only. Off-Loading: Low air-loss mattress, Turn and reposition every 2 hours and Other (padded heel protectors )
[2024-08-15] MEDS: midodrine 5 mg TABLET PO (14:38)
[2024-08-15] MEDS: gabapentin 100 mg Capsule PO ×2 (14:38→21:05)
[2024-08-15] MEDS: norepinephrine 4 MG/250 ML BAG 7.5 MG IV (14:58)
[2024-08-15] MEDS: baclofen 10 mg Tablet PO (17:15)
[2024-08-15] MEDS: TRAMadol 50 mg Tablet PO ×2 (17:15→21:07)
[2024-08-15] MEDS: lacosamide 50 mg Tablet 200 MG PO (17:15)
[2024-08-15] MEDS: levETIRAcetam 500 mg Tablet 1500 MG PO (17:15)
[2024-08-15 20:30] LABS: Albumin Level 1.8 g/dL (3.5-5.2); Anion Gap 11.9 (5-19); Blood Urea Nitrogen 28 mg/dL (6-20); Calcium 7.8 mg/dL (8.5-10.5); Carbon Dioxide 11 mmol/L (22-29); Chloride 130 mmol/L (98-107); Glomerular Filtration Rate 104.2 mL/min (90-130); Glucose 120 mg/dL (65-115); Phosphorus 1.6 mg/dL (2.5-4.5); Sodium 150 mmol/L (136-145)
[2024-08-15 20:38] LABS: Potassium 2.9 mmol/L (3.5-5.1)
[2024-08-15] MEDS: midodrine 5 mg TABLET 10 MG PO (21:06)
[2024-08-15] MEDS: potassium phosphate (mEq K) 40 MEQ in sodium chloride 0.9% (100 ml) 100 ML 27.25 MEQ IV (21:08)
[2024-08-15] MEDS: magnesium sulfate premix 1 GM/100 ML PIGGYBACK IV (21:08)
[2024-08-16] VITALS (45 sets, daily range): BP systolic 89–132; BP diastolic 57–91; PULSE 47–89; RESP 7–26; TEMP 35.9–37.1; O2SAT 98–100; BMI 18.7
[2024-08-16] MEDS: pantoprazole 40 mg SDV IVP ×3 (01:36→23:44)
[2024-08-16] MEDS: piperacillin-tazobactam 3.375 GM in sodium chloride 0.9% (plus) 50 ML IV ×3 (01:37→17:22)
[2024-08-16] MEDS: dextrose 5% 1,000 ML 75 ML IV ×2 (01:41→14:07)
[2024-08-16 04:28] LABS: Basophils % 0.1 %; Eosinophils % 0.1 %; Hematocrit 29.7 % (36-47); Lymphocytes # 1.1 10^3/uL (0.8-4.8); Lymphocytes % 5.3 %; Mean Corpuscular HGB Conc 29.6 g/dL (30-55); Mean Corpuscular Hemoglobin 27.2 pg (27-33); Mean Platelet Volume 8.9 fL (7.4-10.4); Monocytes # 1.4 10^3/uL (0.2-0.9); Monocytes % 6.7 %; Neutrophils # 17.51 10^3/uL (1.8-7.7); Neutrophils % 86.9 %; Nucleated Red Blood Cells # 0.1 /100WBC; Nucleated Red Blood Cells % 0.3 %; Platelet Count 341 10^3/cmm (157-399); Red Blood Count 3.23 10^6/uL (3.85-5.65); Red Cell Distribution Width 20.3 % (12.1-15.1); White Blood Count 20.19 10^3/uL (3.29-11.43)
[2024-08-16 04:51] LABS: Alanine Aminotransferase 9 U/L (0-33); Albumin Level 1.8 g/dL (3.5-5.2); Alkaline Phosphatase 129 U/L (35-105); Anion Gap 12.5 (5-19); Aspartate Amino Transferase 12 U/L (0-32); Blood Urea Nitrogen 25 mg/dL (6-20); Calcium 7.5 mg/dL (8.5-10.5); Carbon Dioxide 12 mmol/L (22-29); Chloride 126 mmol/L (98-107); Globulin 3.5 g/dL (1.3-4.6); Glomerular Filtration Rate 128.6 mL/min (90-130); Glucose 116 mg/dL (65-115); Osmolality Calculated 309 mOsm/kg (285-295); Phosphorus 3.9 mg/dL (2.5-4.5); Potassium 3.5 mmol/L (3.5-5.1); Sodium 147 mmol/L (136-145); Total Bilirubin 0.2 mg/dL (0.15-1.2); Total Protein 5.3 g/dL (6.6-8.7)
[2024-08-16] MEDS: midodrine 5 mg TABLET 10 MG PO ×2 (08:52→15:49)
[2024-08-16] MEDS: TRAMadol 50 mg Tablet PO ×3 (08:52→17:22)
[2024-08-16] MEDS: lacosamide 50 mg Tablet 200 MG PO ×2 (08:53→17:23)
[2024-08-16] MEDS: baclofen 10 mg Tablet PO ×2 (08:53→17:23)
[2024-08-16] MEDS: gabapentin 100 mg Capsule PO ×2 (08:53→15:53)
[2024-08-16] MEDS: venlafaxine ER (24HR) 150 mg Capsule PO (08:53)
[2024-08-16] MEDS: atorvastatin 40 mg Tablet PO (08:53)
[2024-08-16] MEDS: levETIRAcetam 500 mg Tablet 1500 MG PO ×2 (08:53→17:23)
[2024-08-16] MEDS: sodium hypochlorite 0.125% Btl 473 mL 1 APPLIC TOPICAL ×2 (10:19→20:59)
--- NOTE | 2024-08-16 10:19 | P.PN_ITS ---
Subjective 2 Subjective: Patient off Levophed. More awake and alert this morning. On modified diet. Discussed plan of care. Medications: Reviewed: Yes Vitals/I&O/Wt Last Vital Signs Temp 98.8 F 08/16/24 09:45 Pulse 58 L 08/16/24 10:00 Resp 12 08/16/24 10:00 BP 110/71 08/16/24 10:00 Pulse Ox 100 08/16/24 10:00 O2 Del Method Room Air 08/16/24 10:00 O2 Flow Rate 3 08/13/24 12:45 08/15/24 08/16/24 08/16/24 22:59 06:59 14:59 Intake Total 425.50 / 512.726 7063.3409 / 2105.5079 Output Total 550 / 550 650 / 1200 Balance -124.50 / 405.839 205.2797 / 905.5079 Weight last 48 hrs Weight 56 kg Weight 56 kg Weight 53 kg Physical Exam 2 Narrative: General: Patient is awake. Less ill appearing. Head: Normocephalic. Dysarthric speech. Neck: No JVD. Cardiovascular: RRR. No gallops. No murmurs. Lungs: Clear to auscultation, no use of accessory muscles, no crackles or wheezes. Skin: No jaundice. No rashes. Abdomen: Normal bowel sounds, abdomen soft and nontender. Extremities: No cyanosis or clubbing. Musculoskeletal: No swollen or erythematous joints. Neurological: No myoclonus. Data 08/16/24 04:10 08/16/24 04:10 A&P Assessment and plan (1) Septic shock: Continue midodrine 10 mg TID Leukocytosis improving Follow cultures, currently gram-negative, awaiting identification and speciation Continue broad-spectrum antibiotics (2) UTI (urinary tract infection): As above (3) GI bleed: Continue IV PPI Transfuse as needed Holding anticoagulation, antiplatelets (4) Encephalopathy acute: Mentation is improving Speech therapy following Plan Hypokalemia: Replace potassium as needed. Acute on chronic metabolic acidosis: Start bicarb tabs Hypernatremia: Continue D5W infusion. Increase oral intake. Trending labs. Large decubitus ulcer on the sacrum, decubitus ulcers on the right heel. Continue wound care. Nephrolithiasis: Outpatient urology. Compression fracture superior endplate L4. Mild compression spear endplate T12 which is new. Will benefit from follow-up with primary provider. Continue to reintroduce home meds as tolerated. Constipation: Incidentally noted on CT. Monitor. Multiple sclerosis: Seems advanced. Severe protein calorie malnutrition: Monitor intake. Oral intake has resumed. DVT prophylaxis: SCD CODE STATUS: Full code PDMP PDMP Reviewed: Not Reviewed Attestations 2 Medical Necessity Statement*: Patient requires ongoing hospitalization for IV antibiotics, electrolyte management, speech therapy evaluation, and supportive care. Coding Level of Care Code Acute Code for Chg Fwd Diagnoses Septic shock A41.9; R65.21 UTI (urinary tract infection) N39.0 GI bleed K92.2 Encephalopathy acute G93.40
--- NOTE | 2024-08-16 12:14 | P.PN_ITS ---
<Statement entered by Mani Coulter MD - 08/16/24 13:02> I have reviewed the documentation and plan of care and agree with the assessment and plan of care as written. Dr. Mani Coulter Subjective 2 Subjective: Ms. Moraes was evaluated at bedside in the ICU today. She appears to be more awake and is watching television upon entering the room. She is still having trouble articulating her words. Her day shift nurse has already had to change the bandage earlier this morning due to a bowel movement. Both dressings were intact. Per her nurse, she will be transferring to Med/Surg later today. Her white blood cell count has decreased to 20. Vitals/I&O/Wt Last Vital Signs Temp 98.8 F 08/16/24 09:45 Pulse 58 L 08/16/24 10:00 Resp 12 08/16/24 10:00 BP 110/71 08/16/24 10:00 Pulse Ox 100 08/16/24 10:00 O2 Del Method Room Air 08/16/24 10:00 O2 Flow Rate 3 08/13/24 12:45 08/15/24 08/16/24 08/16/24 22:59 06:59 14:59 Intake Total 425.50 / 697.642 5279.3409 / 2105.5079 Output Total 550 / 550 650 / 1200 Balance -124.50 / 405.107 307.5277 / 905.5079 Weight last 48 hrs Weight 56 kg Weight 56 kg Weight 53 kg Physical Exam 2 Const: COMMON NORMALS: no acute distress GENERAL APPEARANCE: cooperative, disheveled, ill appearing and frail appearing NUTRITIONAL APPEARANCE: thin ORIENTATION/CONSCIOUSNESS: Yes confused Chest: CHEST: Yes Symmetrical chest wall rise Resp: COMMON NORMALS: normal respiratory effort and No retractions EFFORT & INSPECTION: Yes symmetric chest movement Cardio: COMMON NORMALS: regular rate RATE: regular rate : BLADDER/KIDNEY EXAM: Yes other (Urostomy in place) Extremity: RIGHT LOWER EXTREMITY: Yes foot & digits Right foot and digits: Yes inspection ([id number] toe: darkened, maroon appearing skin color changes, nonblanchable), Yes palpation (normal skin temperature) and Yes neurovascular exam (monophasic DP pulse) Neuro: GAIT: Yes Unable to assess gait (Bedbound) Skin: WOUNDS: Yes wounds noted (See wound assessment) Data 08/16/24 04:10 08/16/24 12:05 Micro: Microbiology 08/13/24 14:51 Urine Culture - Preliminary Urine,Clean Catch Gram Negative Rods Proteus mirabilis esbl A&P Assessment and plan (1) Pressure ulcer of sacral region, stage 4: (2) Deep tissue injury: Plan 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 The periwound remains negative for erythema, warmth, or induration. There is no odor or purulent drainage noted on the dressing material upon removal. The excoriation noted to the inferior periwound area near her anus is improved. The zinc-based barrier ointment to this area is working well to protect the periwound. We will use a wet-to-dry dressing with Dakin's 0.125% to the wound bed and undermined area twice daily. This should be covered with dry gauze and an ABD pad and secured in her brief. No adhesive should be used on her skin to prevent trauma. The deep tissue injury present on her right calcaneus which has been present for many months remains stable. There is no drainage, erythema, or warmth to this area. Continue painting with Betadine and covering with an Optifoam. This should be changed daily. There was a new area discovered on Ms. Moraes's right fifth toe that is darkened/ maroon colored. This area is non blanchable. Her dorsalis pedis pulse is monophasic. This could be from sustained pressure to this area, though an arterial ultrasound would be beneficial given the monophasic Doppler signals. I have talked with Dr. Alberts, her hospitalist regarding this. Will order BLE arterial duplex ultrasounds. Ms. Moraes is on a pressure relieving bed that is able to tilt her from oghm-ti-jown. This will help relieve pressure directly over the sacrum. She should be turned at minimum every 2 hours. Use pillows, foam cushions, mattress pads, or other aids to reduce pressure on vulnerable areas. Remove pressure from medical devices like catheters and oxygen tubing.This bed should go with her when she transfers to another floor. She has padded heel protectors in place. These should remain on at all times to prevent further breakdown to her feet. Nutrition will be especially important for wound healing. Guided by hospitalist service. PDMP PDMP Reviewed: Not Reviewed Attestations 2 Medical Necessity Statement*: Time Spent in Patient Care: 16 - 35 minutes Coding Level of Care Code Acute Code for Chg Fwd Diagnoses Pressure ulcer of sacral region, stage 4 L89.154 Deep tissue injury T14.8XXA Wound Assessment Wound Assessment Wound Number 1 Sacrum: Cluster Wound: Yes Primary Etiology:: Pressure Ulcer Length: (cm): 14.8 cm Width: (cm): 14.5 cm Depth: (cm): 2 cm Epithelialization:: None Tunneling:: No Undermining:: Yes (8-2 o'clock with a maximum of 1.8cm) Classification: Stage 4 Limited to Skin Breakdown: No Exudate Amount:: Large Drainage Type: Serosanguineous Foul Odor After Cleansing:: No Slough/Fibrin?: Yes Granulation Amount: Small (1-33%) Granulation Quality:: [place] Necrotic Amount:: Medium (34-66%) Necrotic Type:: Eschar and Adherent Slough Non Wound Condition 1 Heel: Descriptor: Right Length: (cm): 3.8 cm Width: (cm): 2.5 cm Deep tissue injury Exudate Amount:: None Present: Non Wound Condition 2 Toe Fifth: Descriptor: Right Wound Orders Wound Number 1: Sacral pressure ulcer stage 4 Dressing change frequency: Twice Daily and Other (PRN if soiled or saturated ) Wound Cleansing: Saline Skin Barriers/Maida-Wound Care: Other (Barrier ointment ) Primary Wound Care Dressing: damp gauze using Dakins 0.125% solution twice daily Secondary Wound Care Dressing: dry gauze and ABD Bathing/Showering/Hygiene: May shower with protection but do not get dressing wet. Off-Loading: Low air-loss mattress, Roho cushion for wheelchair and Turn and reposition every 2 hours Non Wound Condition 1: right heel Dressing change frequency: Daily Wound Cleansing: Soap and Water Skin Barriers/Maida-Wound Care: Betadine Primary Wound Care Dressing: Secondary Wound Care Dressing: optifoam Bathing/Showering/Hygiene: Do not shower or bathe in tub. Sponge bath only. Off-Loading: Low air-loss mattress, Turn and reposition every 2 hours and Other (padded heel protectors )
[2024-08-16 12:29] LABS: Albumin Level 1.8 g/dL (3.5-5.2); Anion Gap 12.1 (5-19); Blood Urea Nitrogen 20 mg/dL (6-20); Calcium 7.3 mg/dL (8.5-10.5); Carbon Dioxide 12 mmol/L (22-29); Chloride 123 mmol/L (98-107); Glomerular Filtration Rate 128.6 mL/min (90-130); Glucose 119 mg/dL (65-115); Phosphorus 3.2 mg/dL (2.5-4.5); Potassium 3.1 mmol/L (3.5-5.1); Sodium 144 mmol/L (136-145)
--- NOTE | 2024-08-16 13:00 | USR_ITS ---
PROCEDURE INFORMATION: Exam: US Duplex Bilateral Lower Extremity Arteries Exam date and time: 08/16/2024 4:36 PM Age: 54 years old Clinical indication: Screening exam; Pad; Additional info: Rule out pad, monophasic dp, discoloration of r5th toe. TECHNIQUE: Imaging protocol: Real-time ultrasound scan of the arteries of the bilateral lower extremities with 2-D yousif scale, color Doppler flow and spectral waveform analysis. Images documented and saved. COMPARISON: CT kidney stone [id number] 08/13/2024 1:58 PM FINDINGS: Right common femoral artery: No occlusion or significant stenosis. Biphasic waveform. Right superficial femoral artery: No occlusion or significant stenosis. Biphasic waveform proximally and monophasic in the mid to distal portion with spectral broadening. Right popliteal artery: No occlusion or significant stenosis. Monophasic waveform with spectral broadening. Right calf/foot arteries: No occlusion or significant stenosis in the visualized arteries. Monophasic waveforms with spectral broadening and diminished velocity in the posterior tibial and dorsalis pedis. Dorsalis pedis artery is patent. Left common femoral artery: No occlusion or significant stenosis. Biphasic waveform. Left superficial femoral artery: No occlusion or significant stenosis. Monophasic waveform. Left popliteal artery: No occlusion or significant stenosis. Monophasic waveform. Left calf/foot arteries: No occlusion or significant stenosis in the visualized arteries. Monophasic waveforms with spectral broadening. Dorsalis pedis artery is patent. US/CV arterial duplex [facility] [id number] IMPRESSION: No evidence of occlusion or high-grade stenosis. However, there is evidence of diffuse peripheral atherosclerotic disease.
[2024-08-16] MEDS: potassium chloride oral liq 20 mEq/15 mL UDC 40 MEQ PO (13:17)
--- NOTE | 2024-08-16 14:02 | PC.NURSE ---
Report called to Jennifer YANG, patient is to transfer to room 251-2.
--- NOTE | 2024-08-16 14:31 | PC.NURSE ---
Patient transferred to room [facility]-2 via bed on room air. Patient in icu bed per wound care request. Wound care supplies at bedside. Patient oriented to room and call light. Patient watching TV with no requests or complaints at time of transfer.
[2024-08-16] MEDS: sodium bicarbonate 650 mg Tablet PO (15:49)
--- NOTE | 2024-08-16 21:08 | PC.NURSE ---
This nurse attempted to administer patients 2100 medications. Patient refused medications. This nurse educated patient on needs for medications. Patient continued to refuse.
[2024-08-16] MEDS: ondansetron 2 mg/ML SDV 2 mL 4 MG IVP (23:44)
[2024-08-17] VITALS (13 sets, daily range): BP systolic 86–117; BP diastolic 54–77; PULSE 69–96; RESP 12–17; TEMP 36.2–36.5; O2SAT 92–100; BMI 18.7
[2024-08-17] MEDS: midodrine 5 mg TABLET 10 MG PO ×3 (00:34→13:59)
--- NOTE | 2024-08-17 00:40 | PC.NURSE ---
This nurse was advised that patients blood pressure was 86/54 at 0030. This nurse administered 2100 dose of midodrine at that time. Patient took medication without issue. Patients blood pressure will continue to be monitored.
[2024-08-17] MEDS: piperacillin-tazobactam 3.375 GM in sodium chloride 0.9% (plus) 50 ML IV ×3 (01:43→17:14)
[2024-08-17] MEDS: dextrose 5% 1,000 ML 75 ML IV (03:47)
[2024-08-17] MEDS: sodium chloride 0.9% 500 ML 999 ML IV (04:19)
--- NOTE | 2024-08-17 05:18 | PC.NURSE ---
This nurse contacted Dr. Umanzor at 03:38 to advise him the the patients blood pressure was 89/64. Dr. Umanzor ordered a 500ml bolus of NS. This nurse administered said bolus and monitored patient during. Patients blood pressure was brought up to 94/66 after bolus. Nurse contacted the dr to let him know. No other orders recieved at this time. The nurse will continue to monitor patient.
--- NOTE | 2024-08-17 08:22 | P.PN_ITS ---
Subjective 2 Subjective: Patient downgraded out of the ICU. Received NS bolus overnight. This morning she is awake, slightly less conversational than yesterday. Seems to deny any new complaints. Discussed plan of care. Labs pending. Medications: Reviewed: Yes Vitals/I&O/Wt Last Vital Signs Temp 97.5 F L 08/17/24 07:27 Pulse 74 08/17/24 07:27 Resp 16 08/17/24 07:27 BP 101/68 08/17/24 07:27 Pulse Ox 100 08/17/24 07:27 O2 Del Method Room Air 08/17/24 07:27 O2 Flow Rate 3 08/13/24 12:45 08/16/24 08/17/24 08/17/24 22:59 06:59 14:59 Intake Total 50 / 1032.5 1700 / 2732.5 Output Total 1100 / 1100 Balance 50 / 1032.5 600 / 1632.5 Weight last 48 hrs Weight 55.792 kg Weight 56 kg Weight 56 kg Physical Exam 2 Narrative: General: Patient is awake. Chronically ill-appearing. Head: Normocephalic. Dysarthric speech. Neck: No JVD. Cardiovascular: RRR. No gallops. No murmurs. Lungs: Clear to auscultation, no use of accessory muscles, no crackles or wheezes. Skin: No jaundice. No rashes. Abdomen: Normal bowel sounds, abdomen soft and nontender. Extremities: No cyanosis or clubbing. Musculoskeletal: No swollen or erythematous joints. Neurological: No myoclonus. Data 08/16/24 04:10 08/16/24 12:05 Micro: Microbiology 08/13/24 14:51 Urine Culture - Preliminary Urine,Clean Catch Gram Negative Rods Proteus mirabilis esbl A&P Assessment and plan (1) Septic shock: Shock has resolved Continue midodrine 10 mg TID Leukocytosis improving Follow cultures, suspecting multiple organisms, currently ESBL Proteus as well as another organism still pending Continue broad-spectrum antibiotics (2) UTI (urinary tract infection): As above (3) GI bleed: Continue IV PPI Transfuse as needed Holding anticoagulation, antiplatelets (4) Encephalopathy acute: Mentation is improving Speech therapy following Plan Hypokalemia: Replace potassium as needed. Acute on chronic metabolic acidosis: Continue bicarb tabs. Serial labs. Hypernatremia: Continue D5W infusion until improvement. Large decubitus ulcer on the sacrum, decubitus ulcers on the right heel. Continue wound care. Nephrolithiasis: Outpatient urology. Compression fracture superior endplate L4. Mild compression spear endplate T12 which is new. Will benefit from follow-up with primary provider. Continue to reintroduce home meds as tolerated. Constipation: Incidentally noted on CT. Monitor. Multiple sclerosis: Seems advanced. Severe protein calorie malnutrition: Monitor intake. DVT prophylaxis: SCD CODE STATUS: Full code PDMP PDMP Reviewed: Not Reviewed Attestations 2 Medical Necessity Statement*: Patient requires ongoing hospitalization for IV antibiotics, electrolyte management, speech therapy, and supportive care. Coding Level of Care Code Acute Code for Chg Fwd Diagnoses Septic shock A41.9; R65.21 UTI (urinary tract infection) N39.0 GI bleed K92.2 Encephalopathy acute G93.40
[2024-08-17 08:26] LABS: Basophils % 0.2 %; Eosinophils % 0.2 %; Hematocrit 35.4 % (36-47); Lymphocytes % 5.9 %; Mean Corpuscular HGB Conc 28.2 g/dL (30-55); Mean Corpuscular Hemoglobin 27.3 pg (27-33); Mean Corpuscular Volume 96.7 fl (85-98); Mean Platelet Volume 9.7 fL (7.4-10.4); Monocytes # 1.4 10^3/uL (0.2-0.9); Monocytes % 8.6 %; Neutrophils # 13.56 10^3/uL (1.8-7.7); Neutrophils % 84.5 %; Nucleated Red Blood Cells % 0.1 %; Platelet Count 232 10^3/cmm (157-399); Red Blood Count 3.66 10^6/uL (3.85-5.65); Red Cell Distribution Width 21.1 % (12.1-15.1); White Blood Count 16.05 10^3/uL (3.29-11.43)
[2024-08-17] MEDS: TRAMadol 50 mg Tablet PO ×3 (09:08→17:13)
[2024-08-17] MEDS: sodium bicarbonate 650 mg Tablet PO ×2 (09:08→13:59)
[2024-08-17] MEDS: atorvastatin 40 mg Tablet PO (09:08)
[2024-08-17] MEDS: baclofen 10 mg Tablet PO ×2 (09:09→17:13)
[2024-08-17] MEDS: venlafaxine ER (24HR) 150 mg Capsule PO (09:09)
[2024-08-17] MEDS: levETIRAcetam 500 mg Tablet 1500 MG PO ×2 (09:09→17:13)
[2024-08-17] MEDS: lacosamide 50 mg Tablet 200 MG PO ×2 (09:10→17:16)
[2024-08-17] MEDS: gabapentin 100 mg Capsule PO (09:10)
--- NOTE | 2024-08-17 09:38 | P.PN_ITS ---
Subjective 2 Subjective: Ms. Rico evaluated on [facility] today. Upon entering the room she was sitting up in bed working with speech therapy. Per the speech therapist, she refused to eat any of her breakfast though she ate some pudding and thickened chocolate milk with her. When asked how she was doing, Ms. Moraes states fine. She was able to tell me her first name though not her last name. The dressings to her heel and sacrum were intact. Her heel protectors were on. She is on an ICU bed which is pressure relieving. Vitals/I&O/Wt Last Vital Signs Temp 97.5 F L 08/17/24 07:27 Pulse 74 08/17/24 07:27 Resp 16 08/17/24 07:27 BP 101/68 08/17/24 07:27 Pulse Ox 100 08/17/24 07:27 O2 Del Method Room Air 08/17/24 07:27 O2 Flow Rate 3 08/13/24 12:45 08/16/24 08/17/24 08/17/24 22:59 06:59 14:59 Intake Total 50 / 1032.5 1700 / 2732.5 Output Total 1100 / 1100 Balance 50 / 1032.5 600 / 1632.5 Weight last 48 hrs Weight 55.792 kg Weight 56 kg Weight 56 kg Physical Exam 2 Const: COMMON NORMALS: no acute distress and alert GENERAL APPEARANCE: c ooperative, ill appearing (Chronically) and frail appearing NUTRITIONAL APPEARANCE: thin ORIENTATION/CONSCIOUSNESS: Yes confused Chest: CHEST: Yes Symmetrical chest wall rise Resp: COMMON NORMALS: normal respiratory effort and No retractions EFFORT & INSPECTION: Yes symmetric chest movement Cardio: COMMON NORMALS: regular rate RATE: regular rate : BLADDER/KIDNEY EXAM: Yes other (Urostomy in place) Extremity: RIGHT LOWER EXTREMITY: Yes foot & digits Right foot and digits: Yes inspection ([id number] toe: darkened, maroon appearing skin color changes: unchanged) and Yes palpation (normal skin temperature) Neuro: SENSORIUM/ORIENTATION: Yes alert GAIT: Yes Unable to assess gait (Bedbound) Skin: WOUNDS: Yes wounds noted (See wound assessment) Data 08/17/24 08:02 08/17/24 09:06 Micro: Microbiology 08/13/24 14:51 Urine Culture - Preliminary Urine,Clean Catch Gram Negative Rods Proteus mirabilis esbl A&P Assessment and plan (1) Pressure ulcer of sacral region, stage 4: (2) Deep tissue injury: Plan Chronic stage IV pressure ulcer of the sacrum remains stable. The periwound remains negative for erythema, warmth, or induration. There is an isolated area of adherent slough and eschar at the superior portion of the wound that would benefit from debridement in the near future. With her current status, I elected not to debride at bedside today. I will plan to do this once she has returned to the custodial. If the wound was to show significant decline or this necrotic tissue becomes more widespread, surgical debridement while inpatient should not be excluded. Currently, there is no odor or purulent drainage noted on the dressing material upon removal. We will continue with wet-to-dry dressing using Dakin's 0.125% to the wound bed and undermined area twice daily. This should be covered with dry gauze and an ABD pad and secured in her brief. No adhesive should be used on her skin to prevent trauma. She has been frequently incontinent of bowel and not able to tell nursing staff. When assessing the wound, she had a small amount of continuous bowel leakage from her anus. It will be especially important for nursing staff to check her for incontinence frequently to prevent contamination of the wound and further skin breakdown. Nursing staff plan to reach out to hospitalist regarding potential rectal tube if indicated. The deep tissue injury present on her right calcaneus which has been present for many months remains stable. There is no drainage, erythema, or warmth to this area. Continue painting with Betadine and covering with an Optifoam. This should be changed daily. The area on the right fifth toe remains unchanged. The arterial ultrasound showed no evidence of occlusion or high-grade stenosis, with evidence of diffuse peripheral atherosclerotic disease. I discussed this with Dr. Alberts over the phone. Her home medications include atorvastatin and plavix. As previously suspected, the tissue change is likely from pressure. It will be important to ensure there is no pressure over this area. It should be checked frequently. We will place a soft 2 x 2 gauze between her 4th and 5th toes as a spacer. This should be changed daily. Ms. Moraes is on a pressure relieving bed that is able to tilt her from [id number]. This will help relieve pressure directly over the sacrum. She should be turned at minimum every 2 hours. Use pillows, foam cushions, mattress pads, or other aids to reduce pressure on vulnerable areas. Remove pressure from medical devices like catheters and oxygen tubing. She has padded heel protectors in place. These should remain on at all times to prevent further breakdown to her feet. Nutrition will be especially important for wound healing. It may be challenging for her to meet her caloric needs by mouth. This will be guided by hospitalist service. Wound care will sign off for now. Any further recommendations or treatment plan changes regarding wound care will be directed by hospitalist service. Plans for follow-up at [facility] after she is discharged. The open wound was cleansed and dressings were applied during visit. PDMP PDMP Reviewed: Not Reviewed Attestations 2 Medical Necessity Statement*: Time Spent in Patient Care: 16 - 35 minutes Coding Level of Care Code Acute Code for Chg Fwd Diagnoses Pressure ulcer of sacral region, stage 4 L89.154 Deep tissue injury T14.8XXA Wound Assessment Wound Assessment Wound Number 1 Sacrum: Cluster Wound: Yes Primary Etiology:: Pressure Ulcer Length: (cm): 14.8 cm Width: (cm): 14.5 cm Depth: (cm): 2 cm Epithelialization:: None Tunneling:: No Undermining:: Yes (8-2 o'clock with a maximum of 2cm) Classification: Stage 4 Limited to Skin Breakdown: No Exudate Amount:: Large Drainage Type: Serosanguineous Foul Odor After Cleansing:: No Slough/Fibrin?: Yes Granulation Amount: Small (1-33%) Granulation Quality:: [place] Necrotic Amount:: Small (1-33%) Necrotic Type:: Eschar and Adherent Slough Non Wound Condition 1 Heel: Descriptor: Right Length: (cm): 3.8 cm Width: (cm): 2.5 cm Deep tissue injury Exudate Amount:: None Present: Non Wound Condition 2 Toe Fifth: Descriptor: Right Wound Orders Wound Number 1: Sacral pressure ulcer stage 4 Dressing change frequency: Twice Daily and Other (PRN if soiled or saturated ) Wound Cleansing: Saline Skin Barriers/Maida-Wound Care: Other (Barrier ointment ) Primary Wound Care Dressing: damp gauze using Dakins 0.125% solution twice daily Secondary Wound Care Dressing: dry gauze and ABD Bathing/Showering/Hygiene: May shower with protection but do not get dressing wet. Off-Loading: Low air-loss mattress, Roho cushion for wheelchair and Turn and reposition every 2 hours Non Wound Condition 1: right heel Dressing change frequency: Daily Wound Cleansing: Soap and Water Skin Barriers/Maida-Wound Care: Betadine Primary Wound Care Dressing: Secondary Wound Care Dressing: optifoam Bathing/Showering/Hygiene: Do not shower or bathe in tub. Sponge bath only. Off-Loading: Low air-loss mattress, Turn and reposition every 2 hours and Other (padded heel protectors ) Non Wound Condition 2: Right fifth toe Dressing change frequency: Daily Wound Cleansing: Soap and Water Primary Wound Care Dressin x 2 gauze as a toe spacer Results Results Additional studies: Radiologist Impressions: Last 24 hours Duplex Scan Lower Extremity Artery 08/16/24 13:00 IMPRESSION: No evidence of occlusion or high-grade stenosis. However, there is evidence of diffuse peripheral atherosclerotic disease. ADDENDUM: 08/16/24 1474 ANKLE-BRACHIAL INDICES: Right: 0.47 Left: 0.51 Findings are compatible with moderate peripheral atherosclerotic disease.
[2024-08-17 09:41] LABS: Alanine Aminotransferase 11 U/L (0-33); Albumin Level 1.8 g/dL (3.5-5.2); Alkaline Phosphatase 134 U/L (35-105); Anion Gap 11.7 (5-19); Aspartate Amino Transferase 13 U/L (0-32); Blood Urea Nitrogen 14 mg/dL (6-20); Carbon Dioxide 14 mmol/L (22-29); Chloride 120 mmol/L (98-107); Globulin 3.5 g/dL (1.3-4.6); Glomerular Filtration Rate 231.8 mL/min (90-130); Glucose 84 mg/dL (65-115); Magnesium 1.7 mg/dL (1.7-2.3); Osmolality Calculated 296 mOsm/kg (285-295); Phosphorus 2.6 mg/dL (2.5-4.5); Sodium 143 mmol/L (136-145); Total Bilirubin 0.2 mg/dL (0.15-1.2); Total Protein 5.3 g/dL (6.6-8.7)
[2024-08-17 09:46] LABS: Potassium 2.7 mmol/L (3.5-5.1)
[2024-08-17] MEDS: lidocaine 1% 5 ML in potassium chloride premix 100 ML 26.25 ML IV (10:25)
[2024-08-17] MEDS: potassium chloride oral liq 20 mEq/15 mL UDC 40 MEQ PO ×2 (10:26→14:00)
[2024-08-17] MEDS: sodium hypochlorite 0.125% Btl 473 mL 1 APPLIC TOPICAL ×2 (11:13→22:57)
[2024-08-17] MEDS: pantoprazole 40 mg SDV IVP ×2 (11:53→20:06)
[2024-08-17] MEDS: gabapentin 100 mg Capsule 200 MG PO (14:02)
[2024-08-17] MEDS: ondansetron 2 mg/ML SDV 2 mL 4 MG IVP (20:14)
--- NOTE | 2024-08-17 20:54 | PC.NURSE ---
Patient refusing all PO medications at this time. Patient stated that she felt nauseated. PRN Zofran given, gave patient some time, and came back. Patient still refusing PO medications. Crushed pills and attempt to give in pudding and patient closed mouth and pulled away. Patient educated on each medication and importance of taking it, but still refusing them.
[2024-08-17 21:21] LABS: Albumin Level 1.6 g/dL (3.5-5.2); Blood Urea Nitrogen 11 mg/dL (6-20); Calcium 6.9 mg/dL (8.5-10.5); Carbon Dioxide 14 mmol/L (22-29); Chloride 123 mmol/L (98-107); Glomerular Filtration Rate 231.8 mL/min (90-130); Glucose 85 mg/dL (65-115); Phosphorus 2.4 mg/dL (2.5-4.5); Sodium 145 mmol/L (136-145)
[2024-08-18] VITALS (7 sets, daily range): BP systolic 89–175; BP diastolic 59–74; PULSE 83–106; RESP 14–18; TEMP 36.4–36.9; O2SAT 93–100
[2024-08-18] MEDS: piperacillin-tazobactam 3.375 GM in sodium chloride 0.9% (plus) 50 ML IV ×3 (01:56→17:03)
[2024-08-18 04:20] LABS: Basophils % 0.1 %; Eosinophils % 0.1 %; Hematocrit 31.5 % (36-47); Lymphocytes # 0.7 10^3/uL (0.8-4.8); Lymphocytes % 4.6 %; Mean Corpuscular HGB Conc 29.8 g/dL (30-55); Mean Corpuscular Hemoglobin 27.3 pg (27-33); Mean Corpuscular Volume 91.6 fl (85-98); Mean Platelet Volume 9.7 fL (7.4-10.4); Monocytes # 1.3 10^3/uL (0.2-0.9); Monocytes % 8.3 %; Neutrophils # 13.52 10^3/uL (1.8-7.7); Neutrophils % 86.5 %; Nucleated Red Blood Cells % 0 %; Platelet Count 226 10^3/cmm (157-399); Red Blood Count 3.44 10^6/uL (3.85-5.65); Red Cell Distribution Width 20.7 % (12.1-15.1); White Blood Count 15.63 10^3/uL (3.29-11.43)
[2024-08-18 04:42] LABS: Alanine Aminotransferase 11 U/L (0-33); Albumin Level 1.7 g/dL (3.5-5.2); Alkaline Phosphatase 127 U/L (35-105); Anion Gap 11.8 (5-19); Aspartate Amino Transferase 12 U/L (0-32); Blood Urea Nitrogen 11 mg/dL (6-20); Calcium 7.2 mg/dL (8.5-10.5); Carbon Dioxide 15 mmol/L (22-29); Chloride 122 mmol/L (98-107); Globulin 3.7 g/dL (1.3-4.6); Glomerular Filtration Rate 166.3 mL/min (90-130); Glucose 80 mg/dL (65-115); Magnesium 1.7 mg/dL (1.7-2.3); Osmolality Calculated 298 mOsm/kg (285-295); Phosphorus 2.5 mg/dL (2.5-4.5); Potassium 3.8 mmol/L (3.5-5.1); Sodium 145 mmol/L (136-145); Total Bilirubin 0.2 mg/dL (0.15-1.2); Total Protein 5.4 g/dL (6.6-8.7)
[2024-08-18 07:58] LABS: Basophils % 0.1 %; Eosinophils % 0.1 %; Hematocrit 31.8 % (36-47); Lymphocytes # 0.6 10^3/uL (0.8-4.8); Lymphocytes % 4.1 %; Mean Corpuscular HGB Conc 29.9 g/dL (30-55); Mean Corpuscular Hemoglobin 27.1 pg (27-33); Mean Corpuscular Volume 90.6 fl (85-98); Mean Platelet Volume 9.3 fL (7.4-10.4); Monocytes # 1.1 10^3/uL (0.2-0.9); Monocytes % 7.4 %; Neutrophils # 13.01 10^3/uL (1.8-7.7); Neutrophils % 87.9 %; Nucleated Red Blood Cells % 0 %; Platelet Count 233 10^3/cmm (157-399); Red Blood Count 3.51 10^6/uL (3.85-5.65); Red Cell Distribution Width 20.9 % (12.1-15.1); White Blood Count 14.78 10^3/uL (3.29-11.43)
[2024-08-18 08:19] LABS: Alanine Aminotransferase 12 U/L (0-33); Albumin Level 1.8 g/dL (3.5-5.2); Alkaline Phosphatase 129 U/L (35-105); Anion Gap 10.5 (5-19); Aspartate Amino Transferase 12 U/L (0-32); Blood Urea Nitrogen 10 mg/dL (6-20); Calcium 7.3 mg/dL (8.5-10.5); Carbon Dioxide 15 mmol/L (22-29); Chloride 122 mmol/L (98-107); Globulin 3.6 g/dL (1.3-4.6); Glomerular Filtration Rate 166.3 mL/min (90-130); Glucose 72 mg/dL (65-115); Osmolality Calculated 296 mOsm/kg (285-295); Potassium 3.5 mmol/L (3.5-5.1); Sodium 144 mmol/L (136-145); Total Bilirubin 0.2 mg/dL (0.15-1.2); Total Protein 5.4 g/dL (6.6-8.7)
[2024-08-18] MEDS: sodium bicarbonate 650 mg Tablet PO (08:42)
[2024-08-18] MEDS: pantoprazole 40 mg SDV IVP ×2 (08:43→20:18)
[2024-08-18] MEDS: atorvastatin 40 mg Tablet PO (08:43)
[2024-08-18] MEDS: gabapentin 300 mg Capsule PO ×3 (08:43→20:18)
[2024-08-18] MEDS: lacosamide 50 mg Tablet 200 MG PO ×2 (08:43→17:02)
[2024-08-18] MEDS: midodrine 5 mg TABLET 10 MG PO ×3 (08:43→20:18)
[2024-08-18] MEDS: potassium chloride oral liq 20 mEq/15 mL UDC 40 MEQ PO (08:43)
[2024-08-18] MEDS: levETIRAcetam 500 mg Tablet 1500 MG PO ×2 (08:43→17:02)
[2024-08-18] MEDS: venlafaxine ER (24HR) 150 mg Capsule PO (08:43)
[2024-08-18] MEDS: TRAMadol 50 mg Tablet PO ×4 (08:44→20:18)
[2024-08-18] MEDS: baclofen 10 mg Tablet PO ×2 (08:44→17:03)
--- NOTE | 2024-08-18 09:35 | P.PN_ITS ---
Subjective 2 Subjective: Patient is more awake and alert this morning. She is more conversational than prior days. Discussed her culture results revealing 2 culprit organisms. Discussed improving labs. Encouraged increased oral intake as tolerated today. Medications: Reviewed: Yes Vitals/I&O/Wt Last Vital Signs Temp 97.8 F 08/18/24 07:43 Pulse 96 08/18/24 07:43 Resp 15 08/18/24 07:43 BP 175/69 08/18/24 07:43 Pulse Ox 99 08/18/24 07:43 O2 Del Method Room Air 08/18/24 07:43 O2 Flow Rate 3 08/13/24 12:45 08/17/24 08/18/24 08/18/24 22:59 06:59 14:59 Intake Total 100 / 805 50 / 855 120 / 120 Output Total 1500 / 1500 300 / 1800 Balance -1400 / -695 -250 / -945 120 / 120 Weight last 48 hrs Weight 56.971 kg Weight 55.792 kg Physical Exam 2 Narrative: General: Patient is awake. Chronically ill-appearing. More conversational today. Head: Normocephalic. Neck: No JVD. Cardiovascular: RRR. No gallops. No murmurs. Lungs: Clear to auscultation, no use of accessory muscles, no crackles or wheezes. Skin: No jaundice. No rashes. Wound not observed. Abdomen: Normal bowel sounds, abdomen soft and nontender. Extremities: No cyanosis or clubbing. Musculoskeletal: No swollen or erythematous joints. Neurological: No myoclonus. Data 08/18/24 07:51 08/18/24 07:51 Micro: Microbiology 08/13/24 14:51 Urine Culture - Final Urine,Clean Catch Pseudomonas aeruginosa Proteus mirabilis esbl A&P Assessment and plan (1) Septic shock: Continue midodrine 10 mg TID Leukocytosis continues to improve Follow cultures, suspecting multiple organisms, currently ESBL Proteus and Pseudomonas; both sensitive to Zosyn Continue Zosyn (2) UTI (urinary tract infection): As above (3) GI bleed: Continue IV PPI Transfuse as needed Holding anticoagulation Hemoglobin stable, restart Plavix (4) Encephalopathy acute: Mentation is improving Speech therapy following Plan Hypokalemia: Replace potassium as needed. Acute on chronic metabolic acidosis: Continue bicarb tabs. Serial labs. Hypernatremia: Sodium is improved. Continue to monitor. Encourage oral intake. Repeat labs tomorrow. Large decubitus ulcer on the sacrum, decubitus ulcers on the right heel. Continue wound care. Nephrolithiasis: Outpatient urology. Compression fracture superior endplate L4. Mild compression spear endplate T12 which is new. Will benefit from follow-up with primary provider. Constipation: Incidentally noted on CT. Monitor. Multiple sclerosis: Seems advanced. Severe protein calorie malnutrition: Monitor intake. DVT prophylaxis: SCD CODE STATUS: Full code PDMP PDMP Reviewed: Not Reviewed Attestations 2 Medical Necessity Statement*: Patient requires ongoing hospitalization for IV antibiotics, electrolyte management, speech therapy, and supportive care. Coding Level of Care Code Acute Code for Chg Fwd Diagnoses Septic shock A41.9; R65.21 UTI (urinary tract infection) N39.0 GI bleed K92.2 Encephalopathy acute G93.40
[2024-08-18] MEDS: clopidogrel 75 mg Tablet PO (10:10)
[2024-08-18] MEDS: sodium hypochlorite 0.125% Btl 473 mL 1 APPLIC TOPICAL ×2 (10:10→22:32)
[2024-08-18] MEDS: sodium bicarbonate 650 mg Tablet 1300 MG PO ×2 (15:08→20:18)
[2024-08-19] VITALS (8 sets, daily range): BP systolic 96–119; BP diastolic 50–86; PULSE 91–101; RESP 16–18; TEMP 36.1–36.8; O2SAT 98–100
[2024-08-19] MEDS: piperacillin-tazobactam 3.375 GM in sodium chloride 0.9% (plus) 50 ML IV ×3 (01:03→17:14)
[2024-08-19 04:03] LABS: Basophils % 0.1 %; Eosinophils % 0.2 %; Hematocrit 32.3 % (36-47); Lymphocytes # 0.9 10^3/uL (0.8-4.8); Lymphocytes % 8.1 %; Mean Corpuscular HGB Conc 29.4 g/dL (30-55); Mean Corpuscular Hemoglobin 27.1 pg (27-33); Monocytes # 1.1 10^3/uL (0.2-0.9); Monocytes % 9.3 %; Neutrophils # 9.48 10^3/uL (1.8-7.7); Neutrophils % 81.8 %; Nucleated Red Blood Cells % 0 %; Platelet Count 198 10^3/cmm (157-399); Red Blood Count 3.51 10^6/uL (3.85-5.65); White Blood Count 11.59 10^3/uL (3.29-11.43)
[2024-08-19 04:24] LABS: Albumin Level 1.7 g/dL (3.5-5.2); Anion Gap 11.6 (5-19); Blood Urea Nitrogen 13 mg/dL (6-20); Calcium 7.5 mg/dL (8.5-10.5); Carbon Dioxide 16 mmol/L (22-29); Chloride 128 mmol/L (98-107); Glomerular Filtration Rate 166.3 mL/min (90-130); Glucose 69 mg/dL (65-115); Magnesium 1.8 mg/dL (1.7-2.3); Phosphorus 2.5 mg/dL (2.5-4.5); Potassium 3.6 mmol/L (3.5-5.1); Sodium 152 mmol/L (136-145)
--- NOTE | 2024-08-19 06:06 | PC.NURSE ---
This nurse contacted Dr. Matta due to patients sodium level being elevated at 152. Dr. Matta would like patient to be encouraged to drink more fluids. This nurse will continue to encourage fluids for remainder of shift and pass it on to next shift.
--- NOTE | 2024-08-19 08:50 | P.PN_ITS ---
Subjective 2 Subjective: Patient awake this morning; she is less talkative than yesterday. She is again hypernatremic, her oral intake is not sufficient enough yet; restarting IV fluids. Discussed with patient. Nursing facility yesterday noted prior neurologic symptoms with elevated keppra levels; will proceed to check (send out lab). Medications: Reviewed: Yes Vitals/I&O/Wt Last Vital Signs Temp 96.9 F L 08/19/24 07:32 Pulse 97 08/19/24 07:32 Resp 18 08/19/24 07:32 BP 114/73 08/19/24 07:32 Pulse Ox 99 08/19/24 07:32 O2 Del Method Room Air 08/19/24 07:32 O2 Flow Rate 3 08/13/24 12:45 08/18/24 08/19/24 08/19/24 22:59 06:59 14:59 Intake Total 50 / 220 50 / 270 120 / 120 Output Total 850 / 850 250 / 1100 Balance -800 / -630 -200 / -830 120 / 120 Weight last 48 hrs Weight 56.472 kg Weight 56.971 kg Physical Exam 2 Narrative: General: Patient is awake. Chronically ill-appearing. Less conversational today. Head: Normocephalic. Neck: No JVD. Cardiovascular: RRR. No gallops. No murmurs. Lungs: Clear to auscultation, no use of accessory muscles, no crackles or wheezes. Skin: No jaundice. No rashes. Multiple known wounds including bilateral ankles, large sacral pressure wound. Abdomen: Normal bowel sounds, abdomen soft and nontender. Extremities: No cyanosis or clubbing. Poor muscular development. Musculoskeletal: No swollen or erythematous joints. Neurological: No myoclonus. Data 08/19/24 03:25 08/19/24 03:25 Micro: Microbiology 08/13/24 13:22 Blood Culture - Final Blood NO GROWTH AFTER 5 DAYS 08/13/24 12:12 Blood Culture - Final Blood NO GROWTH AFTER 5 DAYS A&P Assessment and plan (1) Septic shock: Continue midodrine 10 mg TID Leukocytosis nearly resolved Ux with ESBL Proteus and Pseudomonas; both sensitive to Zosyn Continue Zosyn (2) UTI (urinary tract infection): As above (3) GI bleed: Continue IV PPI Transfuse as needed Holding anticoagulation Hemoglobin stable Plavix has been restarted Monitor blood counts, repeat labs tomorrow (4) Encephalopathy acute: Mentation fluctuating, worse today again Continue optimizing electrolytes Start D5W again with repeat labs this evening Check Keppra levels Speech therapy following Plan Hypokalemia: Replace potassium as needed. Acute on chronic metabolic acidosis: Continue bicarb tabs. Hypernatremia: Sodium has worsened. She is not mainting hydration via oral route; will restart D5W for free water replacement Large decubitus ulcer on the sacrum, decubitus ulcers on the bilateral heels. Continue wound care. Nephrolithiasis: Outpatient urology. Compression fracture superior endplate L4. Mild compression spear endplate T12 which is new. Will benefit from follow-up with primary provider. Constipation: Incidentally noted on CT. Monitor. Multiple sclerosis: Seems advanced. Severe protein calorie malnutrition: Monitor intake. DVT prophylaxis: SCD CODE STATUS: Full code PDMP PDMP Reviewed: Not Reviewed Attestations 2 Medical Necessity Statement*: Patient requires ongoing hospitalization for IV antibiotics, electrolyte management, IV fluids, and supportive care. Coding Level of Care Code Acute Code for Chg Fwd Diagnoses Septic shock A41.9; R65.21 UTI (urinary tract infection) N39.0 GI bleed K92.2 Encephalopathy acute G93.40
[2024-08-19] MEDS: dextrose 5% + KCl 20 mEq 20 MEQ/1,000 ML BAG 75 MEQ IV ×2 (09:46→21:43)
[2024-08-19] MEDS: pantoprazole 40 mg SDV IVP ×2 (09:47→21:42)
[2024-08-19] MEDS: lacosamide 50 mg Tablet 200 MG PO ×2 (09:47→17:12)
[2024-08-19] MEDS: venlafaxine ER (24HR) 150 mg Capsule PO (09:47)
[2024-08-19] MEDS: TRAMadol 50 mg Tablet PO ×2 (09:47→17:13)
[2024-08-19] MEDS: midodrine 5 mg TABLET 10 MG PO ×2 (09:48→17:12)
[2024-08-19] MEDS: gabapentin 300 mg Capsule PO ×2 (09:48→17:14)
[2024-08-19] MEDS: atorvastatin 40 mg Tablet PO (09:48)
[2024-08-19] MEDS: sodium bicarbonate 650 mg Tablet PO ×2 (09:48→17:13)
[2024-08-19] MEDS: levETIRAcetam 500 mg Tablet 1500 MG PO ×2 (09:48→17:12)
[2024-08-19] MEDS: baclofen 10 mg Tablet PO ×2 (09:48→17:12)
[2024-08-19] MEDS: clopidogrel 75 mg Tablet PO (09:49)
[2024-08-19] MEDS: sodium hypochlorite 0.125% Btl 473 mL 1 APPLIC TOPICAL ×2 (09:50→23:18)
--- NOTE | 2024-08-19 12:28 | PC.NURSE ---
Notified Dr. Alberts patient refused to take tramadol. Wasted with charge nurse.
[2024-08-19 20:29] LABS: Albumin Level 1.7 g/dL (3.5-5.2); Anion Gap 11.7 (5-19); Blood Urea Nitrogen 12 mg/dL (6-20); Calcium 7.6 mg/dL (8.5-10.5); Carbon Dioxide 16 mmol/L (22-29); Chloride 127 mmol/L (98-107); Glomerular Filtration Rate 231.8 mL/min (90-130); Glucose 104 mg/dL (65-115); Potassium 3.7 mmol/L (3.5-5.1); Sodium 151 mmol/L (136-145)
[2024-08-20] VITALS (8 sets, daily range): BP systolic 89–115; BP diastolic 60–82; PULSE 67–96; RESP 14–19; TEMP 36.4–36.9; O2SAT 93–100; BMI 18.8
[2024-08-20] MEDS: piperacillin-tazobactam 3.375 GM in sodium chloride 0.9% (plus) 50 ML IV ×3 (02:04→17:35)
[2024-08-20 03:14] LABS: Basophils % 0.2 %; Eosinophils % 0.3 %; Hematocrit 32.3 % (36-47); Lymphocytes # 1.1 10^3/uL (0.8-4.8); Lymphocytes % 9.7 %; Mean Corpuscular HGB Conc 28.5 g/dL (30-55); Mean Corpuscular Hemoglobin 27.1 pg (27-33); Mean Corpuscular Volume 95.3 fl (85-98); Mean Platelet Volume 10.1 fL (7.4-10.4); Monocytes # 1.2 10^3/uL (0.2-0.9); Neutrophils # 8.51 10^3/uL (1.8-7.7); Neutrophils % 78.3 %; Nucleated Red Blood Cells % 0 %; Platelet Count 180 10^3/cmm (157-399); Red Blood Count 3.39 10^6/uL (3.85-5.65); Red Cell Distribution Width 21.6 % (12.1-15.1); White Blood Count 10.86 10^3/uL (3.29-11.43)
[2024-08-20 03:33] LABS: Alanine Aminotransferase 10 U/L (0-33); Albumin Level 1.7 g/dL (3.5-5.2); Alkaline Phosphatase 128 U/L (35-105); Anion Gap 12.6 (5-19); Aspartate Amino Transferase 11 U/L (0-32); Blood Urea Nitrogen 12 mg/dL (6-20); Calcium 7.5 mg/dL (8.5-10.5); Carbon Dioxide 16 mmol/L (22-29); Chloride 123 mmol/L (98-107); Globulin 3.7 g/dL (1.3-4.6); Glomerular Filtration Rate 166.3 mL/min (90-130); Glucose 120 mg/dL (65-115); Magnesium 1.7 mg/dL (1.7-2.3); Osmolality Calculated 307 mOsm/kg (285-295); Potassium 3.6 mmol/L (3.5-5.1); Sodium 148 mmol/L (136-145); Total Bilirubin 0.2 mg/dL (0.15-1.2); Total Protein 5.4 g/dL (6.6-8.7)
[2024-08-20] MEDS: ketorolac 30 mg/mL INJ 15 MG IVP (06:13)
--- NOTE | 2024-08-20 08:21 | XRR_ITS ---
PROCEDURE INFORMATION: Exam: XR Abdomen Exam date and time: 08/20/2024 8:59 AM Age: 54 years old Clinical indication: Abdominal pain; Generalized TECHNIQUE: Imaging protocol: Radiologic exam of the abdomen. Views: Frontal supine view of the abdomen. 1 View. COMPARISON: CT kidney stone [id number] 08/13/2024 1:58 PM FINDINGS: Gastrointestinal tract: Large rectal stool burden. Persistent nonspecific gaseous distension of bowel. Organs: Coarse calcifications visualized in the ieplj-ncwlldd-fyrn-left kidneys. Bones/joints: No large obvious osseous fractures. XR/XR abdomen 1V* [id number] IMPRESSION: 1. Large rectal stool burden. 2. Persistent nonspecific gaseous distension of bowel. 3. Coarse calcifications visualized in the lbsuw-mbvurip-bqne-left kidneys.
--- NOTE | 2024-08-20 09:26 | P.PN_ITS ---
Subjective 2 Subjective: Patient awake. Speech remains somewhat difficult to comprehend at times. She complains of abdominal discomfort. Per report, refused medications overnight. Oral intake remains poor. Discussed EGD evaluation and she repeatedly refuses. Medications: Reviewed: Yes Vitals/I&O/Wt Last Vital Signs Temp 97.6 F 08/20/24 07:11 Pulse 96 08/20/24 07:11 Resp 16 08/20/24 07:11 BP 100/77 08/20/24 07:11 Pulse Ox 96 08/20/24 07:11 O2 Del Method Room Air 08/20/24 07:11 O2 Flow Rate 3 08/13/24 12:45 08/19/24 08/20/24 08/20/24 22:59 06:59 14:59 Intake Total 946.25 / 1116.25 50 / 1166.25 Output Total 350 / 350 500 / 850 Balance 596.25 / 766.25 -450 / 316.25 Weight last 48 hrs Weight 56.245 kg Weight 56.472 kg Physical Exam 2 Narrative: General: Patient is awake. Chronically ill-appearing. Head: Speech intermittently incomprehensible. Neck: No JVD. Cardiovascular: RRR. No gallops. No murmurs. Lungs: Clear to auscultation, no use of accessory muscles, no crackles or wheezes. Skin: No jaundice. No rashes. Multiple wounds including bilateral ankles, large sacral pressure wound. Abdomen: Hypoactive bowel sounds, abdomen slightly ttp. Extremities: No cyanosis or clubbing. Poor muscular development. Musculoskeletal: No swollen or erythematous joints. Neurological: No myoclonus. Data 08/20/24 01:48 08/20/24 01:48 A&P Assessment and plan (1) Septic shock: (2) UTI (urinary tract infection): (3) GI bleed: (4) Encephalopathy acute: Plan Sepsis 2/2 acute complicated UTI Acute complicated ESBL Proteus and Pseudomonas UTI - Ux with ESBL Proteus and Pseudomonas; both sensitive to Zosyn - Leukocytosis resolved - Continue midodrine 10 mg TID (home dose 5 mg TID) - Continue Zosyn Abdominal pain with anorexia - Again refused EGD - Check KUB - Monitor intake Acute metabolic encephalopathy - Mentation fluctuating; still not at reported baseline - Continue D5W until oral intake improves and sodium normalizes - Keppra level is pending Suspected acute GI bleed - Reported melena on admission - May benefit from EGD but refused - Blood counts remain stable - Tolerating Plavix; AC still on hold - Continue with PPI tx Hypokalemia - Replace potassium as needed. Acute on chronic metabolic acidosis - Continue bicarb tabs. Hypernatremia: - Continue D5W; trending levels Large decubitus ulcer on the sacrum Decubitus ulcers on the bilateral heels. - Continue wound care. Nephrolithiasis - Outpatient urology. Compression fracture superior endplate L4. Mild compression spear endplate T12 which is new. - Continue analgesics Constipation: - KUB as above Multiple sclerosis: - Seems advanced. - Most home meds have been reintroduced Severe protein calorie malnutrition: - Monitor intake. DVT prophylaxis: SCD CODE STATUS: Full code PDMP PDMP Reviewed: Not Reviewed Attestations 2 Medical Necessity Statement*: Patient requires ongoing hospitalization for IV antibiotics, electrolyte management, IV fluids, and supportive care. Coding Level of Care Code Acute Code for Chg Fwd Diagnoses Septic shock A41.9; R65.21 UTI (urinary tract infection) N39.0 GI bleed K92.2 Encephalopathy acute G93.40
[2024-08-20] MEDS: TRAMadol 50 mg Tablet PO ×4 (09:56→21:24)
[2024-08-20] MEDS: sodium bicarbonate 650 mg Tablet PO ×3 (09:56→21:25)
[2024-08-20] MEDS: lacosamide 50 mg Tablet 200 MG PO ×2 (09:56→17:34)
[2024-08-20] MEDS: levETIRAcetam 500 mg Tablet 1500 MG PO ×2 (09:56→17:34)
[2024-08-20] MEDS: midodrine 5 mg TABLET 10 MG PO ×3 (09:56→21:24)
[2024-08-20] MEDS: gabapentin 300 mg Capsule PO ×3 (09:57→21:24)
[2024-08-20] MEDS: pantoprazole 40 mg SDV IVP ×2 (09:57→21:23)
[2024-08-20] MEDS: baclofen 10 mg Tablet PO ×2 (09:57→17:34)
[2024-08-20] MEDS: venlafaxine ER (24HR) 150 mg Capsule PO (09:57)
[2024-08-20] MEDS: atorvastatin 40 mg Tablet PO (09:57)
[2024-08-20] MEDS: clopidogrel 75 mg Tablet PO (09:57)
[2024-08-20] MEDS: dextrose 5% + KCl 20 mEq 20 MEQ/1,000 ML BAG 75 MEQ IV (11:03)
[2024-08-20] MEDS: sodium hypochlorite 0.125% Btl 473 mL 1 APPLIC TOPICAL ×2 (11:05→23:39)
[2024-08-20 16:32] LABS: Albumin Level 1.7 g/dL (3.5-5.2); Anion Gap 11.1 (5-19); Blood Urea Nitrogen 12 mg/dL (6-20); Calcium 7.7 mg/dL (8.5-10.5); Carbon Dioxide 17 mmol/L (22-29); Chloride 123 mmol/L (98-107); Glomerular Filtration Rate 166.3 mL/min (90-130); Glucose 91 mg/dL (65-115); Phosphorus 2.1 mg/dL (2.5-4.5); Potassium 4.1 mmol/L (3.5-5.1); Sodium 147 mmol/L (136-145)
[2024-08-21] VITALS (9 sets, daily range): BP systolic 90–113; BP diastolic 59–78; PULSE 66–93; RESP 15–18; TEMP 36.2–36.7; O2SAT 93–100; BMI 18.8
[2024-08-21] MEDS: dextrose 5% + KCl 20 mEq 20 MEQ/1,000 ML BAG 75 MEQ IV ×2 (01:01→13:44)
[2024-08-21] MEDS: piperacillin-tazobactam 3.375 GM in sodium chloride 0.9% (plus) 50 ML IV ×3 (01:48→17:33)
[2024-08-21 05:19] LABS: Basophils % 0.1 %; Eosinophils # 0.2 10^3/uL (0.0-0.8); Eosinophils % 1.8 %; Hematocrit 28.4 % (36-47); Lymphocytes # 1.4 10^3/uL (0.8-4.8); Lymphocytes % 17.1 %; Mean Corpuscular HGB Conc 29.2 g/dL (30-55); Mean Corpuscular Hemoglobin 27.9 pg (27-33); Mean Corpuscular Volume 95.3 fl (85-98); Mean Platelet Volume 10.3 fL (7.4-10.4); Monocytes % 12.2 %; Neutrophils % 68.4 %; Nucleated Red Blood Cells % 0 %; Platelet Count 140 10^3/cmm (157-399); Red Blood Count 2.98 10^6/uL (3.85-5.65); Red Cell Distribution Width 21.2 % (12.1-15.1); White Blood Count 8.19 10^3/uL (3.29-11.43)
[2024-08-21 05:42] LABS: Albumin Level 1.5 g/dL (3.5-5.2); Anion Gap 10.7 (5-19); Blood Urea Nitrogen 11 mg/dL (6-20); Calcium 7.4 mg/dL (8.5-10.5); Carbon Dioxide 17 mmol/L (22-29); Chloride 120 mmol/L (98-107); Glomerular Filtration Rate 370.1 mL/min (90-130); Glucose 95 mg/dL (65-115); Magnesium 1.6 mg/dL (1.7-2.3); Phosphorus 2.1 mg/dL (2.5-4.5); Potassium 3.7 mmol/L (3.5-5.1); Sodium 144 mmol/L (136-145)
[2024-08-21 07:40] LABS: Levetiracetam Immunoassy >100.0 mcg/mL (6.0-46.0)
[2024-08-21] MEDS: gabapentin 300 mg Capsule PO ×3 (09:29→21:18)
[2024-08-21] MEDS: midodrine 5 mg TABLET 10 MG PO ×3 (09:29→21:18)
[2024-08-21] MEDS: venlafaxine ER (24HR) 150 mg Capsule PO (09:29)
[2024-08-21] MEDS: baclofen 10 mg Tablet PO ×2 (09:29→17:33)
[2024-08-21] MEDS: TRAMadol 50 mg Tablet PO ×4 (09:29→21:18)
[2024-08-21] MEDS: lacosamide 50 mg Tablet 200 MG PO ×2 (09:29→17:33)
[2024-08-21] MEDS: clopidogrel 75 mg Tablet PO (09:29)
[2024-08-21] MEDS: atorvastatin 40 mg Tablet PO (09:29)
[2024-08-21] MEDS: sodium bicarbonate 650 mg Tablet PO ×3 (09:29→21:18)
[2024-08-21] MEDS: pantoprazole 40 mg SDV IVP ×2 (09:29→21:18)
[2024-08-21] MEDS: sodium hypochlorite 0.125% Btl 473 mL 1 APPLIC TOPICAL ×2 (09:30→22:29)
--- NOTE | 2024-08-21 14:10 | P.PN_ITS ---
Subjective 2 Subjective: She is doing okay, denies any pain at this time. Spoke with bedside nurse who reports that the patient has been having waxing and waning mental status. Medications: Reviewed: Yes Vitals/I&O/Wt Last Vital Signs Temp 97.2 F L 08/21/24 11:57 Pulse 90 08/21/24 11:57 Resp 16 08/21/24 11:57 BP 95/63 08/21/24 11:57 Pulse Ox 98 08/21/24 11:57 O2 Del Method Room Air 08/21/24 11:57 O2 Flow Rate 3 08/13/24 12:45 08/20/24 08/21/24 08/21/24 22:59 06:59 14:59 Intake Total 100 / 1180 1100 / 2280 1053.75 / 1053.75 Output Total 350 / 350 Balance -250 / 830 1100 / 1930 1053.75 / 1053.75 Weight last 48 hrs Weight 56.245 kg Weight 56.245 kg Physical Exam 2 Narrative: General: Patient is awake. Chronically ill-appearing. Head: Speech intermittently incomprehensible. Neck: No JVD. Cardiovascular: RRR. No gallops. No murmurs. Lungs: Clear to auscultation, no use of accessory muscles, no crackles or wheezes. Skin: No jaundice. No rashes. Multiple wounds including bilateral ankles, large sacral pressure wound. Abdomen: Hypoactive bowel sounds, abdomen slightly ttp. Extremities: No cyanosis or clubbing. Poor muscular development. Musculoskeletal: No swollen or erythematous joints. Neurological: No myoclonus. Data 08/21/24 04:05 08/21/24 04:05 A&P Assessment and plan (1) Septic shock: (2) UTI (urinary tract infection): (3) GI bleed: (4) Encephalopathy acute: Plan Sepsis 2/2 acute complicated UTI Acute complicated ESBL Proteus and Pseudomonas UTI - Ux with ESBL Proteus and Pseudomonas; both sensitive to Zosyn - Leukocytosis resolved - Continue midodrine 10 mg TID (home dose 5 mg TID) - Continue Zosyn Abdominal pain with anorexia - Again refused EGD - Check KUB - Monitor intake Acute metabolic encephalopathy - Mentation fluctuating; still not at reported baseline - Continue D5W until oral intake improves and sodium normalizes - Keppra level is pending Suspected acute GI bleed - Reported melena on admission - May benefit from EGD but refused - Blood counts remain stable - Tolerating Plavix; AC still on hold - Continue with PPI tx Hypokalemia - Replace potassium as needed. Acute on chronic metabolic acidosis - Continue bicarb tabs. Hypernatremia: - Continue D5W; trending levels Large decubitus ulcer on the sacrum Decubitus ulcers on the bilateral heels. - Continue wound care. Nephrolithiasis - Outpatient urology. Compression fracture superior endplate L4. Mild compression spear endplate T12 which is new. - Continue analgesics Constipation: - KUB as above Multiple sclerosis: - Seems advanced. - Most home meds have been reintroduced Severe protein calorie malnutrition: - Monitor intake. DVT prophylaxis: SCD CODE STATUS: Full code 08/21/24 Abdominal x-ray done yesterday showed large rectal stool burden. Persistent nonspecific gaseous distention of bowel. Coarse calcifications visualized in the right greater than left kidneys. Urine culture growing Pseudomonas aeruginosa and ESBL Proteus Will continue IV Zosyn for now Follow-up case management for discharge planning Sodium 144 today, continue D5 at 75 cc/h Follow-up labs in a.m. Keppra levels more than 100. Will hold Keppra for now. PDMP PDMP Reviewed: Not Reviewed Attestations 2 Medical Necessity Statement*: Patient requires ongoing hospitalization for IV antibiotics, electrolyte management, IV fluids, and supportive care. Time Spent in Patient Care: 20 minutes Coding Level of Care Code Acute Code for Chg Fwd Diagnoses Septic shock A41.9; R65.21 UTI (urinary tract infection) N39.0 GI bleed K92.2 Encephalopathy acute G93.40 Time Spent (min) 20
[2024-08-21] MEDS: magnesium oxide 400 mg tablet PO (16:07)
[2024-08-22] MEDS: dextrose 5% + KCl 20 mEq 20 MEQ/1,000 ML BAG 75 MEQ IV (02:09)
[2024-08-22] MEDS: piperacillin-tazobactam 3.375 GM in sodium chloride 0.9% (plus) 50 ML IV ×2 (02:15→10:28)
[2024-08-22 04:12] VITALS: BP 99/77; PULSE 89; RESP 15; TEMP 36.7; O2SAT 91
[2024-08-22 05:13] LABS: Basophils % 0.3 %; Eosinophils # 0.2 10^3/uL (0.0-0.8); Hematocrit 29.8 % (36-47); Lymphocytes # 1.4 10^3/uL (0.8-4.8); Lymphocytes % 19.1 %; Mean Corpuscular HGB Conc 29.5 g/dL (30-55); Mean Corpuscular Hemoglobin 27.3 pg (27-33); Mean Corpuscular Volume 92.5 fl (85-98); Mean Platelet Volume 10.5 fL (7.4-10.4); Monocytes # 0.8 10^3/uL (0.2-0.9); Monocytes % 11.4 %; Neutrophils % 65.9 %; Nucleated Red Blood Cells % 0 %; Platelet Count 138 10^3/cmm (157-399); Red Blood Count 3.22 10^6/uL (3.85-5.65); Red Cell Distribution Width 21.3 % (12.1-15.1); White Blood Count 7.28 10^3/uL (3.29-11.43)
[2024-08-22 05:31] LABS: Anion Gap 12.7 (5-19); Blood Urea Nitrogen 9 mg/dL (6-20); Calcium 7.2 mg/dL (8.5-10.5); Carbon Dioxide 17 mmol/L (22-29); Chloride 113 mmol/L (98-107); Glomerular Filtration Rate 370.1 mL/min (90-130); Glucose 52 mg/dL (65-115); Osmolality Calculated 284 mOsm/kg (285-295); Potassium 3.7 mmol/L (3.5-5.1); Sodium 139 mmol/L (136-145)
[2024-08-22 05:36] VITALS: BMI 18.8
[2024-08-22 07:48] VITALS: BP 101/69; PULSE 93; RESP 17; TEMP 36.4; O2SAT 98
[2024-08-22] MEDS: lacosamide 50 mg Tablet 200 MG PO (08:06)
[2024-08-22] MEDS: midodrine 5 mg TABLET 10 MG PO (08:06)
[2024-08-22] MEDS: TRAMadol 50 mg Tablet PO (08:06)
[2024-08-22] MEDS: clopidogrel 75 mg Tablet PO (08:06)
[2024-08-22] MEDS: sodium bicarbonate 650 mg Tablet PO (08:06)
[2024-08-22] MEDS: atorvastatin 40 mg Tablet PO (08:07)
[2024-08-22] MEDS: venlafaxine ER (24HR) 150 mg Capsule PO (08:07)
[2024-08-22] MEDS: baclofen 10 mg Tablet PO (08:07)
[2024-08-22] MEDS: pantoprazole 40 mg SDV IVP (08:07)
[2024-08-22] MEDS: gabapentin 300 mg Capsule PO (08:07)
[2024-08-22 11:23] VITALS: BP 104/74; PULSE 98; RESP 17; TEMP 36.4; O2SAT 96
--- NOTE | 2024-08-22 11:47 | P.DS_ITS ---
Discharge Providers Date of Admission: 08/13/24 15:48 Date of Discharge: August 22, 2024 Attending Provider at Admission: Smith Jaramillo Attending Provider at Discharge: Paradise Wilson MD Primary Care Provider: Tony Keys MD Diagnoses at Discharge Discharge Diagnosis (1) Septic shock: Status: Acute (2) UTI (urinary tract infection): Status: Acute (3) GI bleed: Status: Acute (4) Encephalopathy acute: Status: Acute Reason for Visit Reason for Visit: declining health - hypotensive Brief History: 54-year-old lady with multiple sclerosis , bedbound with pressure ulcers including large ulcer sacrum, urostomy, seizure disorder, GERD, anemia, asthma, HTN, other medical problems, was brought to the hospital due to altered mental status, generalized weakness, going on for 2-3 days, in ER found to only have response to painful stimuli. With tachycardia, hypotension, finding of sepsis, with finding of dark stools, as well as report of blood in the urine over the last 2 days from the intermediate. Urinary studies with more than 100 RBC, 40- 55 WBC. Additionally with finding of RAFA, creatinine 1.4, potassium 5.4. Lacti c acid 4.2. CT abdomen and pelvis without urinary obstruction. With finding of bilateral renal calculi. Constipation. Stable airspace opacities left lower lobe. Hospital Course Hospital Course Assessment and plan (1) Septic shock: Septic shock secondary to acute complicated UTI Patient remains in shock, continue Levophed support for MAP goal of 65 mmHg Persistent severe leukocytosis noted Follow cultures Continue broad-spectrum antibiotics (2) UTI (urinary tract infection): As above (3) GI bleed: Reported melena in ER Continue IV PPI Transfuse if needed Holding anticoagulation, antiplatelets (4) Encephalopathy acute: Acute metabolic encephalopathy Hold sedating medications Serial exams Plan RAFA: Resolved after fluid resuscitation Hypokalemia: Replace potassium via IV Acute on chronic metabolic acidosis: Considering bicarb drip however already hypernatremic. There is also component of hyperchloremia. Avoid NS products for now. Given multiple electrolyte derangements, will repeat labs this afternoon and determine about IV fluids at that time. Hyponatremia: Monitor Large decubitus ulcer on the sacrum, decubitus ulcers on the right heel. Continue wound care. Appreciate wound care consultation. Nephrolithiasis: Can be referred to urology at discharge. Compression fracture superior endplate L4. Mild compression spear endplate T12 which is new. Will benefit from follow-up with primary provider. Constipation: Incidentally noted on CT. Multiple sclerosis: Seems advanced. Severe protein calorie malnutrition: Monitor intake Septic shock resolved. Continue midodrine 10 mg TID Leukocytosis nearly resolved Ux with ESBL Proteus and Pseudomonas; both sensitive to Zosyn, received 7 days of IV antibiotics. Blood cultures negative so fa. hypernatremia resoved. Keppra levels more than 100. Will hold Keppra for now Patient refused upper GI EGD. hemoglobin stable at 8.8, will resume plavix and eliquis on discharge. She is doing well, hemodynamically stable, will discharge her to SNF. Physical Exam Narrative: General: Patient is awake. Chronically ill-appearing. Head: Speech intermittently incomprehensible. Neck: No JVD. Cardiovascular: RRR. No gallops. No murmurs. Lungs: Clear to auscultation, no use of accessory muscles, no crackles or wheezes. Skin: No jaundice. No rashes. Multiple wounds including bilateral ankles, large sacral pressure wound. Abdomen: Hypoactive bowel sounds, abdomen slightly ttp. Extremities: No cyanosis or clubbing. Poor muscular development. Musculoskeletal: No swollen or erythematous joints. Neurological: No myoclonus. Discharge Data Studies Completed and Pending Completed Studies During Hospitalization Category Date Time Status CT abdomen renal stone [CT kidney stone [id number]] Stat Cat Scan 08/13/24 12:50 Completed CXRP [XR chest 1V portable [id number]] Stat Exams 08/13/24 14:41 Completed XR abdomen 1V* [id number] Routine Exams 08/20/24 08:21 Completed XR chest 1V portable [id number] Stat Exams 08/13/24 11:52 [place] [id number] Routine Ultrasound 08/16/24 13:00 Completed Pending at discharge Category Date Time Status SARS Covid-2 Antigen Routine Lab 08/22/24 10:20 Uncollected Urine Culture Stat Lab 08/22/24 10:44 Received Radiology Impressions Abdomen/Pelvis CT 08/13/24 12:50 IMPRESSION: 1. Constipation with rectosigmoid impaction with rectal distention 2. Bilateral renal calculi and pelvic calculi similar to previous. No obstructing ureteral calculi. 3. Stable airspace opacities LEFT lower lobe. 4. Compression fracture superior endplate L4 new since 04/28/2024. Mild compression superior endplate T12 is also new since 04/28/2024. 5. Decubitus ulcer at ulceration with partial resection of the distal sacrum and coccyx. Chest X-Ray 08/13/24 14:41 IMPRESSION: 1. Right-sided IJ catheter ends in the lower one third of the SVC. The chest is otherwise unremarkable. Duplex Scan Lower Extremity Artery 08/16/24 13:00 IMPRESSION: No evidence of occlusion or high-grade stenosis. However, there is evidence of diffuse peripheral atherosclerotic disease. ADDENDUM: 08/16/24 1857 ANKLE-BRACHIAL INDICES: Right: 0.47 Left: 0.51 Findings are compatible with moderate peripheral atherosclerotic disease. Abdomen X-Ray 08/20/24 08:21 IMPRESSION: 1. Large rectal stool burden. 2. Persistent nonspecific gaseous distension of bowel. 3. Coarse calcifications visualized in the iwecb-reqsubh-kfnz-left kidneys. Laboratory Results WBC 7.28 10^3/uL (3.29-11.43) 08/22/24 04:34 RBC 3.22 10^6/uL (3.85-5.65) L 08/22/24 04:34 Hgb 8.80 g/dL (11.27-16.99) L 08/22/24 04:34 Hct 29.8 % (36-47) L 08/22/24 04:34 MCV 92.5 fl (85-98) 08/22/24 04:34 MCH 27.3 pg (27-33) 08/22/24 04:34 MCHC 29.5 g/dL (30-55) L 08/22/24 04:34 RDW 21.3 % (12.1-15.1) H 08/22/24 04:34 Plt Count 138 10^3/cmm (157-399) L 08/22/24 04:34 MPV 10.5 fL (7.4-10.4) H 08/22/24 04:34 Neut % (Auto) 65.9 % 08/22/24 04:34 Lymph % (Auto) 19.1 % 08/22/24 04:34 [place] % (Auto) 11.4 % 08/22/24 04:34 Eos % (Auto) 3.0 % 08/22/24 04:34 Baso % (Auto) 0.3 % 08/22/24 04:34 Neut # (Auto) 4.80 10^3/uL (1.8-7.7) 08/22/24 04:34 Lymph # (Auto) 1.4 10^3/uL (0.8-4.8) 08/22/24 04:34 [place] # (Auto) 0.8 10^3/uL (0.2-0.9) 08/22/24 04:34 Eos # (Auto) 0.2 10^3/uL (0.0-0.8) 08/22/24 04:34 Baso # (Auto) 0.0 10^3/uL (0.0-0.1) 08/22/24 04:34 Nucleated RBC % (auto) 0 % 08/22/24 04:34 Nucleated RBCs # 0.0 /100WBC 08/22/24 04:34 PT 20.10 SECONDS (12.1-14.9) H 08/13/24 12:12 INR 1.60 (0.8-1.2) H 08/13/24 12:12 Specimen Type Arterial 08/13/24 13:00 Sample Site Brachial, left 08/13/24 13:00 ABG pH 7.31 (7.35-7.45) L 08/13/24 13:00 ABG pCO2 23.5 mmHg (35-45) L 08/13/24 13:00 ABG pO2 124.0 mmHg (80.0-100.0) H 08/13/24 13:00 ABG PO2/FiO2 Ratio 387 08/13/24 13:00 ABG HCO3 11.7 mmol/L (22-26) L 08/13/24 13:00 ABG O2 Saturation 98.9 08/13/24 13:00 ABG Base Excess -13.2 mmol/L (-2.0-2.0) L 08/13/24 13:00 Andrews Test N/a 08/13/24 13:00 A-a O2 Gradient 9.3 mmHg (5-10) 08/13/24 13:00 Hematocrit 25.3 % (37-47) L 08/13/24 13:00 Hgb O2 Saturation 97.0 % (95-100) 08/13/24 13:00 Carboxyhemoglobin 0.8 %THgb (0.4-20.1) 08/13/24 13:00 Methemoglobin 1.2 % (0.4-1.5) 08/13/24 13:00 Total Hemoglobin 8.3 g/dL (12-16) L 08/13/24 13:00 Sodium 147.0 mmol/L (131-143) H 08/13/24 13:00 Potassium 4.1 mmol/L (3.5-5.0) 08/13/24 13:00 Glucose 84.0 mg/dL (70-115) 08/13/24 13:00 Ionized Calcium 1.2 mmol/L (1.1-1.4) 08/13/24 13:00 O2 Delivery Device Nc 08/13/24 13:00 O2 Liters/Min 3.0 % 08/13/24 13:00 FiO2 32.0 % 08/13/24 13:00 Air Traffic Control Manager ID Gd 08/13/24 13:00 Sodium 139 mmol/L (136-145) 08/22/24 04:34 Potassium 3.7 mmol/L (3.5-5.1) 08/22/24 04:34 Chloride 113 mmol/L (98-107) H 08/22/24 04:34 Carbon Dioxide 17 mmol/L (22-29) L 08/22/24 04:34 Anion Gap 12.7 (5-19) 08/22/24 04:34 BUN 9 mg/dL (6-20) 08/22/24 04:34 Creatinine 0.2 mg/dL (0.5-0.9) L 08/22/24 04:34 GFR Calculation 370.1 mL/min (90-130) H 08/22/24 04:34 Glucose 52 mg/dL (65-115) L 08/22/24 04:34 Calculated Osmolality 284 mOsm/kg (285-295) L 08/22/24 04:34 Lactic Acid 4.2 mmol/L (0.5-2.2) H* 08/13/24 12:12 Lactic Acid (Sepsis) 1.2 mmol/L (0.5-2.2) 08/13/24 15:10 Calcium 7.2 mg/dL (8.5-10.5) L 08/22/24 04:34 Phosphorus 2.1 mg/dL (2.5-4.5) L 08/21/24 04:05 Magnesium 1.6 mg/dL (1.7-2.3) L 08/21/24 04:05 Total Bilirubin 0.2 mg/dL (0.15-1.2) 08/20/24 01:48 AST 11 U/L (0-32) 08/20/24 01:48 ALT 10 U/L (0-33) 08/20/24 01:48 Alkaline Phosphatase 128 U/L (35-105) H 08/20/24 01:48 Troponin T 5th Gen ng/L 51 ng/L (0-10) H 08/14/24 10:43 Total Protein 5.4 g/dL (6.6-8.7) L 08/20/24 01:48 Albumin 1.5 g/dL (3.5-5.2) L 08/21/24 04:05 Globulin 3.7 g/dL (1.3-4.6) 08/20/24 01:48 Urine Color Dark yellow (Yellow) A 08/13/24 14:51 Urine Appearance Slightly cloudy (CLEAR) 08/13/24 14:51 Urine pH 9 (5-7) A 08/13/24 14:51 Ur Specific [place] 1.010 (1.005-1.030) 08/13/24 14:51 Urine Protein 3+ (Negative) A 08/13/24 14:51 Urine Glucose (UA) Norm (Normal) 08/13/24 14:51 Urine Ketones Negative (Negative) 08/13/24 14:51 Urine Blood 3+ (Negative) A 08/13/24 14:51 Urine Nitrate Negative (Negative) 08/13/24 14:51 Urine Bilirubin 1+ (Negative) H 08/13/24 14:51 Urine Urobilinogen Norm mg/dL (Negative) 08/13/24 14:51 Ur Leukocyte Esterase 2+ (Negative) A 08/13/24 14:51 Urine RBC >100 /hpf (0-2) H 08/13/24 14:51 Urine WBC 40-55 /hpf (0-5) H 08/13/24 14:51 Ur Squamous Epith Cells 0-5 /hpf (0-5) 08/13/24 14:51 Amorphous Sediment Not Reportable 08/13/24 14:51 Urine Bacteria 1+ /hpf (NONE) H 08/13/24 14:51 Hyaline Casts 20.90 /lpf 08/13/24 14:51 Levetiracetam >100.0 mcg/mL (6.0-46.0) H 08/19/24 03:25 Blood Type A Positive 08/13/24 13:22 Rho(D) Type Rh positive 08/13/24 13:22 Antibody Screen Positive 08/13/24 13:22 Antibody Identification Anti-C Anti-e 08/13/24 13:22 Antibody Identification Anti-C Anti-e 08/13/24 13:22 Crossmatch See Detail 08/13/24 13:22 Vitals Last Vital Signs Temp 97.5 F L 08/22/24 11:23 Pulse 98 08/22/24 11:23 Resp 17 08/22/24 11:23 BP 104/74 08/22/24 11:23 Pulse Ox 96 08/22/24 11:23 O2 Del Method Room Air 08/22/24 11:23 O2 Flow Rate 3 08/13/24 12:45 Discharge Plan Discharge Patient Disposition: Xfer SNF Condition: Stable Prescriptions: New midodrine 5 mg Tablet 10 mg PO TID 30 Days Qty: 180 0RF Continued potassium chloride 20 mEq tablet extended release 20 meq PO BID@08,17 gabapentin 300 mg capsule 300 mg PO TID baclofen 20 mg tablet 20 mg PO BID atorvastatin 40 mg tablet 40 mg PO DAILY clopidogrel [Plavix] 75 mg tablet 75 mg PO DAILY Eliquis 5 mg tablet 5 mg PO BID Jardiance 10 mg tablet 10 mg PO DAILY ferrous sulfate 324 mg (65 mg iron) tablet,delayed release (DR/EC) 324 mg PO DAILY interferon beta-1b 0.3 mg kit 0.3 ml SUBCUT DAILY Serevent Diskus 50 mcg/dose blister with device 1 inh inhalation Q12H levalbuterol HCl 1.25 mg/3 mL solution for nebulization 1.25 mg inhalation Q4H loratadine 10 mg tablet 10 mg PO DAILY@08 ondansetron HCl 4 mg tablet 4 mg PO Q4H PRN (Reason: Nausea And Vomiting) hydrocodone-acetaminophen 10-325 mg tablet 1 tab PO Q6H budesonide-formoterol [Symbicort] 160-4.5 mcg/actuation Hfa Aerosol Inhaler 2 puff INHALATION BID [place] 4.5 gram-156 mg/9.2 gram Powder In Packet 4.5 g PO DAILY omeprazole 20 mg capsule,delayed release(DR/EC) 20 mg PO DAILY venlafaxine [Effexor XR] 150 mg Capsule,Extended Release 24hr 150 mg PO DAILY lacosamide [Vimpat] 200 mg Tablet 200 mg PO BID acetaminophen 325 mg Tablet 650 mg PO Q6H methenamine hippurate 1 gram tablet 1 g PO QID Discontinued levetiracetam [Keppra] 1,000 mg tablet 1,500 mg PO BID carvedilol [Coreg] 3.125 mg tablet 3.125 mg PO BID Rx Instructions: must administer with a meal/food midodrine 5 mg tablet 5 mg PO TID Rx Instructions: do not give last dose of day after 6PM or within 4 hrs of bedtime tramadol 50 mg tablet 50 mg PO QID Discharge Orders: Discharge Order (Routine); Ordered 08/22/24 Ordered By: Paradise Wilson Referrals: [facility] [Outside] Tony Keys MD [Primary Care Provider] - Discharge Diet: Cardiac Discharge Activity: Limit activity as instructed Patient Instructions: Altered Mental Status (ED), Opioid Safety Discharge Attestations Time Spent in Discharge Care*: less than 30 min Status at Discharge: Cognitive status at discharge: cognitively intact , Behavioral status at discharge: cooperative , Quality Metrics Clinical Quality Measures [ No reported AMI, CVA or VTE this stay] Coding Level of Care Code Acute Code for Chg Fwd Diagnoses Septic shock A41.9; R65.21 UTI (urinary tract infection) N39.0 GI bleed K92.2 Encephalopathy acute G93.40 Time Spent (min) 25
--- NOTE | 2024-08-22 12:58 | PC.NURSE ---
Called report to William Cohen to Carlos Blanco LPN. William Cohen coming with Patients wheel Chair for the ride home.
[2024-08-22 14:04] LABS: SARS Covid-2 Antigen Negative (Negative)
[2024-08-22 14:27] VITALS: BP 104/74; PULSE 98; RESP 17; TEMP 36.4; O2SAT 96
== END 2024-08-22 13:50 | disposition skilled nursing facility (03) | DRG 871 ==
LOC: ER 15:09 → ICU 15:48 → MEDSURG 08-16 14:19
PROVIDERS: Internal Medicine; Admitting Provider Internal Medicine; Emergency Provider Emergency Medicine; PCP Internal Medicine; Visit Provider Internal Medicine
DX: A41.9 Sepsis, unspecified organism (principal); E43 Unspecified severe protein-calorie malnutrition; L89.154 Pressure ulcer of sacral region, stage 4; R65.21 Severe sepsis with septic shock; G93.41 Metabolic encephalopathy; Z16.12 Extended spectrum beta lactamase (ESBL) resistance; K92.1 Melena; N17.9 Acute kidney failure, unspecified; G82.20 Paraplegia, unspecified; Z68.1 Body mass index [BMI] 19.9 or less, adult; E87.0 Hyperosmolality and hypernatremia; E87.20 Acidosis, unspecified; N39.0 Urinary tract infection, site not specified; B96.5 Pseudomonas (aeruginosa) (mallei) (pseudomallei) as the cause of diseases classified elsewhere; B96.4 Proteus (mirabilis) (morganii) as the cause of diseases classified elsewhere; G35 Multiple sclerosis; Z74.01 Bed confinement status; L89.612 Pressure ulcer of right heel, stage 2; Z93.6 Other artificial openings of urinary tract status; K21.9 Gastro-esophageal reflux disease without esophagitis; D64.9 Anemia, unspecified; J45.909 Unspecified asthma, uncomplicated; I10 Essential (primary) hypertension; I25.2 Old myocardial infarction; Z87.891 Personal history of nicotine dependence; F32.A Depression, unspecified; G40.409 Other generalized epilepsy and epileptic syndromes, not intractable, without status epilepticus; Z79.01 Long term (current) use of anticoagulants; Z79.02 Long term (current) use of antithrombotics/antiplatelets; E87.8 Other disorders of electrolyte and fluid balance, not elsewhere classified; E87.6 Hypokalemia; K59.00 Constipation, unspecified; Z87.442 Personal history of urinary calculi
CPT/HCPCS: 36415; 36430; 36592; 36600; 71045; 74018; 74176; 80048; 80051; 80053; 80069; 80177; 81001; 82330; 82805; 83605; 83735; 84100; 84484; 85018; 85025; 85610; 86850; 86870; 86900; 86920; 87040; 87077; 87086; 87186; 87426; 92507; 92523; 92526; 92610; 93005; 93925; 96365; 96366; 96367; 96374; 96375; 96376; 99285; A4222; J0283; J1885; J2405; J2470; J2543; J3370; J3475; J3480; J7030; J7040; J7050; J7070; J9999; P9051